=== PATIENT | female | born 1935 | race American Indian/Alaskan Native ===

== ENCOUNTER 2019-08-20 05:17 | Inpatient (IN) | payer MEDICARE ==
[2019-08-20] MEDS ORDERED: SODIUM CHLORIDE 0.9% 1000 ML IV SOLN IV ONE (05:54)
[2019-08-20 06:25] LABS: Basophils % (Auto) 0.2 % (0.0-1.8); Eosinophils % (Auto) 0.3 % (0.0-4.3); Hematocrit 36.5 % (30.3-42.9); Hemoglobin 12.2 gm/dl (10.1-14.3); Lymphocytes # (Auto) 1.3 K/mm3 (1.2-5.4); Lymphocytes % (Auto) 14.2 % (13.4-35.0); Mean Corpuscular HGB Conc 34 % (30-34); Mean Corpuscular Volume 93 fl (79-97); Monocytes # (Auto) 0.7 K/mm3 (0.0-0.8); Monocytes % (Auto) 7.4 % (0.0-7.3); Platelet Count 144 K/mm3 (140-440); Red Blood Count 3.94 M/mm3 (3.65-5.03); Red Cell Distribution Width 14.1 % (13.2-15.2)
--- NOTE | 2019-08-20 06:32 | XRay Report ---
CHEST 1 VIEW 08/20/2019 6:08 AM INDICATION / CLINICAL INFORMATION: Weakness. Hypotension. COMPARISON: 2 views of the chest from 01/30/2014. FINDINGS: SUPPORT DEVICES: Unremarkable appearing left ICD. HEART / MEDIASTINUM: No significant abnormality. LUNGS / PLEURA: Lung volumes are reduced with elevation of the right hemidiaphragm and right basilar atelectasis. The lungs are otherwise clear. No significant pleural effusion. No pneumothorax. ADDITIONAL FINDINGS: No significant additional findings. IMPRESSION: 1. No acute abnormality of the chest. 2. Right basilar atelectasis. Signer Name: Tre Meyer MD Signed: 08/20/2019 6:28 AM Workstation Name: [id number]
--- NOTE | 2019-08-20 06:38 | Emergency Department Report ---
HPI - General Chief Complaint: Weakness Time Seen by Provider: 08/20/19 06:18 - HPI HPI: Room 19 The patient is an 84-year-old female present with chief complaint of weakness. Family states for the past 3 to 4 days the patient exhibited weakness has been unable to get out of bed or perform her activities of daily living. Patient complains of intermittent chest pain associated with nausea and diaphoresis for the past 3 to 4 days. Patient states she has been unable to get out of bed secondary to feeling weak and chronic back pain. There is no preceding trauma. There is no history of fever. Family reports the patient has complained of a headache for the past 4 to 5 days ED Past Medical Hx - Past Medical History Hx Hypertension: Yes (hyperlipdemia) Hx CVA: Yes (december,) Hx Heart Attack/AMI: Yes Hx Congestive Heart Failure: Yes Hx Diabetes: Yes Hx Deep Vein Thrombosis: Yes Hx Arthritis: Yes Hx Headaches / Migraines: Yes Hx Kidney Stones: Yes Additional medical history: frequent sinus infections - Surgical History Hx Pacemaker: Yes Additional Surgical History: lithotripsy - Family History Family history: no significant - Social History Smoking Status: Never Smoker Substance Use Type: None - Medications Home Medications: Home Medications Medication Instructions Recorded Confirmed Last Taken Type ALPRAZolam [Xanax TAB] 0.5 mg PO BID 03/21/13 01/30/14 01/29/14 History Amlodipine Bes/Olmesartan Med 5 mg PO QDAY 03/21/13 01/30/14 01/29/14 History [Shekhar 10-20 mg] Glimepiride [Amaryl] 2 mg PO QAM 03/21/13 01/30/14 01/29/14 History Losartan [Cozaar] 50 mg PO QDAY 03/21/13 01/30/14 01/29/14 History Atorvastatin [Lipitor] 40 mg PO QHS 11/13/13 01/30/14 01/29/14 History Oxycodone HCl/Acetaminophen 1 each PO Q6HR PRN #20 tablet 11/29/13 01/30/14 01/30/14 Rx [Percocet 7.5/325 mg] Aspirin EC 325 mg PO QDAY #30 tablet 02/08/14 Unknown Rx Clopidogrel [Plavix] 75 mg PO QDAY #30 tablet 02/08/14 Unknown Rx Pantoprazole [Protonix TAB] 40 mg PO QDAY #30 tablet 02/08/14 Unknown Rx carvediloL [Coreg] 3.125 mg PO BID #60 tablet 02/08/14 Unknown Rx ED Review of Systems ROS: Stated complaint: WEAKNESS Other details as noted in HPI Constitutional: weakness Eyes: denies: eye pain ENT: denies: throat pain Respiratory: shortness of breath Cardiovascular: chest pain Endocrine: no symptoms reported Gastrointestinal: nausea. denies: vomiting Genitourinary: denies: dysuria Musculoskeletal: back pain Neurological: headache Physical Exam - Physical Exam Vital Signs: Vital Signs 08/20/19 05:50 Temperature 97.8 F Pulse Rate 70 Blood Pressure 89/46 Physical Exam: GEN: WD WN female lying on stretcher in NAD HEENT: NCAT, EOMI NECK: trachea midline PULM: CTA bilat. No resp distress noted CV: rrr no m/r/g ABD: Soft with no rebound or guarding SKIN: no diaphoresis NEURO: GCS 15 MUSCULOSKELETAL: No evidence of acute injury ED Course Vital Signs 08/20/19 05:50 Temperature 97.8 F Pulse Rate 70 Blood Pressure 89/46 - Consultations Consultation #1: 08/20/19 07:34 Nephrology paged 08/20/19 07:[address] Núñez. Recommend potassium repletion with 40 mEq p.o. and 20 mEq IV then repeat potassium level prior to administering more potassium ED Medical Decision Making - Lab Data Result diagrams: 08/20/19 06:11 08/20/19 06:11 Laboratory Tests 08/20/19 08/20/19 08/20/19 06:11 06:11 06:11 WBC 9.0 RBC 3.94 Hgb 12.2 Hct 36.5 MCV 93 MCH 31 MCHC 34 RDW 14.1 Plt Count 144 Lymph % (Auto) 14.2 Ross % (Auto) 7.4 H Eos % (Auto) 0.3 Baso % (Auto) 0.2 Lymph # 1.3 Ross # 0.7 Eos # 0.0 Baso # 0.0 Seg Neutrophils % 77.9 H Seg Neutrophils # 7.0 Sodium 138 Potassium 2.4 L* Chloride 97.1 L Carbon Dioxide 19 L Anion Gap 24 BUN 57 H Creatinine 5.9 H Estimated GFR 8 BUN/Creatinine Ratio 10 Glucose 143 H Lactic Acid 1.10 Calcium 8.7 Total Bilirubin 0.40 AST 557 H ALT 181 H Alkaline Phosphatase 71 Troponin T 0.224 H* Total Protein 6.0 L Albumin 3.4 L Albumin/Globulin Ratio 1.3 - EKG Data -: EKG Interpreted by Me EKG shows normal: sinus rhythm Rate: normal - EKG Data When compared to previous EKG there are: previous EKG unavailable Interpretation: other (No ischemic changes seen) - Radiology Data Radiology results: report reviewed (Chest x-ray, CT head, CT abdomen pelvis), image reviewed (Chest x-ray, CT head, CT abdomen pelvis) interpreted by me: Chest x-ray-right lower lobe atelectasis. No pneumothorax Findings [address] [address] XRay Report Signed Patient: SHARRI PEREZ MR#: [id number] : 1935 Acct:[id number] Age/Sex: 84 / F ADM Date: 08/20/19 Loc: ED Attending Dr: Ordering Physician: Marisol Mustafa MD Date of Service: 08/20/19 Procedure(s): XR chest 1V ap Accession Number(s): [id number] cc: Marisol Mustafa MD Fluoro Time In Minutes: CHEST 1 VIEW 08/20/2019 6:08 AM INDICATION / CLINICAL INFORMATION: Weakness. Hypotension. COMPARISON: 2 views of the chest from 01/30/2014. FINDINGS: SUPPORT DEVICES: Unremarkable appearing left ICD. HEART / MEDIASTINUM: No significant abnormality. LUNGS / PLEURA: Lung volumes are reduced with elevation of the right hemidiaphragm and right basilar atelectasis. The lungs are otherwise clear. No significant pleural effusion. No pneumothorax. ADDITIONAL FINDINGS: No significant additional findings. IMPRESSION: 1. No acute abnormality of the chest. 2. Right basilar atelectasis. Signer Name: Tre Meyer MD Signed: 08/20/2019 6:28 AM Workstation Name: [id number] Transcribed By: STONEY Dictated By: Tre Meyer MD Electronically Authenticated By: Tre Meyer MD Signed Date/Time: 08/20/19627 DD/ 6 TD/TT: Findings [address] [address] Cat Scan Report Signed Patient: SHARRI PEREZ MR#: [id number] : 1935 Acct:[id number] Age/Sex: 84 / F ADM Date: 08/20/19 Loc: ED Attending Dr: Ordering Physician: ADIS ROWLAND MD Date of Service: 08/20/19 Procedure(s): CT abdomen pelvis wo con Accession Number(s): [id number] cc: ADIS ROWLAND MD CT ABDOMEN AND PELVIS WITHOUT CONTRAST INDICATION: Acute renal failure. COMPARISON: No relevant prior imaging study available. TECHNIQUE: Axial, coronal and sagittal CT imaging of the abdomen and pelvis was performed without contrast. Lack of intravenous contrast limits evaluation of the vascular and solid organs. All CT scans at this location are performed using CT dose reduction for ALARA by means of automated exposure control. FINDINGS: LOWER CHEST: There is bibasilar atelectasis. A left pacing device is in good position. Heart size is normal with dense coronary atherosclerosis and no significant p ericardial effusion. LIVER: No significant abnormality. BILIARY: Sludge is seen within the gallbladder without evidence of acute cholecystitis. No biliary ductal dilatation. PANCREAS: No significant abnormality. SPLEEN: No significant abnormality. ADRENALS: No significant abnormality. KIDNEYS AND URETERS: There are probable bilateral renal cysts measuring up to 1.5 cm on the left and 1.1 cm on the right. No stones or hydroureteronephrosis. GI TRACT: No significant abnormality of the stomach or small bowel. The colon contains a large amount of stool with secondary distention of the rectum. There is mild infiltration of the perirectal fat. The appendix is not seen. PERITONEUM: No free fluid. No free air. No fluid collection. LYMPH NODES: No significant adenopathy. VASCULATURE: The aorta is normal in caliber with moderate generalized atherosclerosis. URINARY BLADDER: No significant abnormality. REPRODUCTIVE ORGANS: Prior hysterectomy. No significant abnormality. ADDITIONAL FINDINGS: None. SKELETAL SYSTEM: No acute abnormality. Degenerative changes are seen throughout the spine and pelvis. IMPRESSION: 1. No acute abnormality of the abdomen or pelvis. 2. Probable bilateral renal cysts. A nonemergent renal ultrasound would be helpful for further evaluation. 3. Additional findings as above. Signer Name: Tre Meyer MD Signed: 08/20/2019 7:13 AM Workstation Name: [id number] Transcribed By: STONEY Dictated By: Tre Meyer MD Electronically Authenticated By: Tre Meyer MD Signed Date/Time: 08/20/19712 DD/ 7 TD/TT: Findings [facility] [address] [place] [address] Cat Scan Report Signed Patient: SHARRI PEREZ MR#: [id number] : 1935 Acct:[id number] Age/Sex: 84 / F ADM Date: 08/20/19 Loc: ED Attending Dr: Ordering Physician: ADIS ROWLAND MD Date of Service: 08/20/19 Procedure(s): CT head/brain wo con Accession Number(s): [id number] cc: ADIS ROWLAND MD CT HEAD WITHOUT CONTRAST INDICATION : Patient complains of headache and weakness.. TECHNIQUE: Axial, coronal and sagittal CT imaging was performed from the skull apex through the skull base without contrast. All CT scans at this location are performed using CT dose reduction for ALARA by means of automated exposure control. COMPARISON: CT head without contrast from 11/29/2013. FINDINGS: PARENCHYMA: No mass, midline shift, hemorrhage, extraaxial collection or acute territorial infarction. Age-appropriate atrophy is seen with probable chronic microvascular ischemic changes along the periventricular white matter. VENTRICLES: Enlarged secondary to atrophy. No acute abnormality. SOFT TISSUES: No significant abnormality of the included soft tissues/orbits. BONES: No acute osseous abnormality. SINUSES: No significant abnormality. ADDITIONAL FINDINGS: There is moderate anterior circulation atherosclerosis. IMPRESSION: 1. No acute intracranial abnormality. 2. Additional chronic changes as above. Signer Name: Tre eMyer MD Signed: 08/20/2019 7:08 AM Workstation Name: [id number] Transc ribed By: STONEY Dictated By: Tre Meyer MD Electronically Authenticated By: Tre Meyer MD Signed Date/Time: 08/20/19707 DD/ 5 TD/TT: - Differential Diagnosis Sepsis, dehydration, symptomatic anemia, ACS Critical care attestation.: If time is entered above; I have spent that time in minutes in the direct care of this critically ill patient, excluding procedure time. ED Disposition Clinical Impression: Acute renal failure, Weakness, Hypokalemia Disposition: OP ADMIT IP TO THIS HOSP Is pt being admited?: Yes Does the pt Need Aspirin: No Condition: Stable Referrals: PRIMARY CARE, [Primary Care Provider] - 3-5 Days Time of Disposition: 07:51 (Hospitalist paged (Dr Fajardo))
[2019-08-20 06:43] LABS: Albumin 3.4 g/dL (3.9-5); Calcium 8.7 mg/dL (8.4-10.2)
--- NOTE | 2019-08-20 07:12 | Cat Scan Report ---
CT HEAD WITHOUT CONTRAST INDICATION : Patient complains of headache and weakness.. TECHNIQUE: Axial, coronal and sagittal CT imaging was performed from the skull apex through the skul l base without contrast. All CT scans at this location are performed using CT dose reduction for ALA RA by means of automated exposure control. COMPARISON: CT head without contrast from 11/29/2013. FINDINGS: PARENCHYMA: No mass, midline shift, hemorrhage, extraaxial collection or acute territorial infarctio n. Age-appropriate atrophy is seen with probable chronic microvascular ischemic changes along the pe riventricular white matter. VENTRICLES: Enlarged secondary to atrophy. No acute abnormality. SOFT TISSUES: No significant abnormality of the included soft tissues/orbits. BONES: No acute osseous abnormality. SINUSES: No significant abnormality. ADDITIONAL FINDINGS: There is moderate anterior circulation atherosclerosis. IMPRESSION: 1. No acute intracranial abnormality. 2. Additional chronic changes as above. Signer Name: Tre Meyer MD Signed: 08/20/2019 7:08 AM Workstation Name: [id number]
--- NOTE | 2019-08-20 07:18 | Cat Scan Report ---
CT ABDOMEN AND PELVIS WITHOUT CONTRAST INDICATION: Acute renal failure. COMPARISON: No relevant prior imaging study available. TECHNIQUE: Axial, coronal and sagittal CT imaging of the abdomen and pelvis was performed without co ntrast. Lack of intravenous contrast limits evaluation of the vascular and solid organs. All CT sca ns at this location are performed using CT dose reduction for ALARA by means of automated exposure co ntrol. FINDINGS: LOWER CHEST: There is bibasilar atelectasis. A left pacing device is in good position. Heart size is normal with dense coronary atherosclerosis and no significant pericardial effusion. LIVER: No significant abnormality. BILIARY: Sludge is seen within the gallbladder without evidence of acute cholecystitis. No biliary du ctal dilatation. PANCREAS: No significant abnormality. SPLEEN: No significant abnormality. ADRENALS: No significant abnormality. KIDNEYS AND URETERS: There are probable bilateral renal cysts measuring up to 1.5 cm on the left and 1.1 cm on the right. No stones or hydroureteronephrosis. GI TRACT: No significant abnormality of the stomach or small bowel. The colon contains a large amount of stool with secondary distention of the rectum. There is mild infiltration of the perirectal fat. The appendix is not seen. PERITONEUM: No free fluid. No free air. No fluid collection. LYMPH NODES: No significant adenopathy. VASCULATURE: The aorta is normal in caliber with moderate generalized atherosclerosis. URINARY BLADDER: No significant abnormality. REPRODUCTIVE ORGANS: Prior hysterectomy. No significant abnormality. ADDITIONAL FINDINGS: None. SKELETAL SYSTEM: No acute abnormality. Degenerative changes are seen throughout the spine and pelvis. IMPRESSION: 1. No acute abnormality of the abdomen or pelvis. 2. Probable bilateral renal cysts. A nonemergent renal ultrasound would be helpful for further evalua tion. 3. Additional findings as above. Signer Name: Tre Meyer MD Signed: 08/20/2019 7:13 AM Workstation Name: [id number]
[2019-08-20] MEDS: CEFEPIME/NS 2 GM/100 ML 2 GM/100 ML BAG IV SCH ×2 (07:20→19:37)
[2019-08-20] MEDS ORDERED: POTASSIUM CHLORIDE ER 20 MEQ TAB PO ONE (07:44)
[2019-08-20 07:48] LABS: Amorphous Crystals,Urine Few; Bacteria,Urine 1+ /HPF (Negative); Bilirubin,Urine NEG (Negative); Blood,Urine LG (Negative); Color,Urine Red (Yellow); Urobilinogen,Urine < 2.0 mg/dL (<2.0)
[2019-08-20 08:06] LABS: Chol/HDL Ratio 3.56 %
[2019-08-20] MEDS: POTASSIUM CHLORIDE 10 MEQ 10 MEQ/100 ML BAG IV SCH ×2 (08:06→09:06)
--- NOTE | 2019-08-20 08:08 | History and Physical Report ---
History of Present Illness Date of examination: 08/20/19 Date of admission: 08/20/19 Chief complaint: Generalized weakness, shortness of breath and cough, intermittent chest pain History of present illness: 84-year-old -[place] female patient with significant history of hypertension ,diabetes mellitus, coronary artery disease status post PCI ,CVA and seizure disorder Presented to the emergency room with complaints of generalized weakness, unable to get up and do her regular chores, worsening appetite and some shortness of breath and productive cough. The symptoms have been going on for the last 1 to 2 weeks but worse the last to 3 days. Patient denies headache dizziness, no fever or chills. At the time of my evaluation patient denied chest pain . However first set of cardiac enzymes are elevated Initial work-up in the ED is consistent with severe hypokalemia, acute kidney injury with creatinine of 5.9 Non-ST elevation ME, transaminitis Past History Past Medical History: CAD (Status post PCI in 2013), diabetes, hypertension, hyperlipidemia, seizures Past Surgical History: Other (ICD placement) Social history: lives with family. denies: smoking, alcohol abuse, IV drug use Family history: hypertension Medications and Allergies Allergies Allergy/AdvReac Type Severity Reaction Status Date / Time No Known Allergies Allergy Verified 11/29/13 10:39 Home Medications Medication Instructions Recorded Confirmed Last Taken Type ALPRAZolam [Xanax TAB] 0.5 mg PO BID 03/21/13 08/20/19 01/29/14 History Amlodipine Bes/Olmesartan Med 2.5 mg PO QDAY 03/21/13 08/20/19 1 Day Ago History [Shekhar 10-20 mg] ~08/19/19 Glimepiride [Amaryl] 2 mg PO QAM 03/21/13 08/20/19 1 Day Ago History ~08/19/19 2 mg Losartan [Cozaar] 25 mg PO QDAY 03/21/13 08/20/19 1 Day Ago History ~08/19/19 25 mg Atorvastatin [Lipitor] 40 mg PO QHS 11/13/13 08/20/19 01/29/14 History Oxycodone HCl/Acetaminophen 1 each PO Q6HR PRN #20 tablet 11/29/13 08/20/19 01/30/14 Rx [Percocet 7.5/325 mg] Aspirin EC 325 mg PO QDAY #30 tablet 02/08/14 08/20/19 Unknown Rx Clopidogrel [Plavix] 75 mg PO QDAY #30 tablet 02/08/14 08/20/19 Unknown Rx Pantoprazole [Protonix TAB] 40 mg PO QDAY #30 tablet 02/08/14 08/20/19 1 Day Ago Rx ~08/19/19 40 mg carvediloL [Coreg] 3.125 mg PO BID #60 tablet 02/08/14 08/20/19 Unknown Rx levETIRAcetam [Keppra TAB] 1,500 mg PO BID 08/20/19 08/20/19 Unknown History Active Meds: Active Medications Cefepime HCl (Cefepime/Ns 2 Gm/100 Ml) 2 gm in 100 mls @ 200 mls/hr IV Q12H SHARON; Protocol Last Admin: 08/20/19 07:20 Dose: 200 mls/hr Documented by: Potassium Chloride (Kcl 10meq/100ml) 10 meq in 100 mls @ 100 mls/hr IV Q1H SHARON Stop: 08/20/19 09:59 Last Admin: 08/20/19 08:06 Dose: 100 mls/hr Documented by: Review of Systems Constitutional: no weight loss, no weight gain Ears, nose, mouth and throat: no nasal congestion, no nasal discharge Cardiovascular: chest pain, shortness of breath, no orthopnea, no palpitations Respiratory: no cough, no hemoptysis Gastrointestinal: nausea, no abdominal pain, no vomiting Genitourinary Female: no pelvic pain, no dysuria Musculoskeletal: no myalgias, no arthritis Integumentary: no rash, no lesions Neurological: seizures, no syncope Psychiatric: no anxiety, no depression Endocrine: no cold intolerance, no heat intolerance Hematologic/Lymphatic: no easy bruising, no easy bleeding Allergic/Immunologic: no urticaria, no allergic rhinitis Exam - Constitutional Vitals: Temp Pulse Resp BP Pulse Ox 97.8 F 71 13 120/90 98 08/20/19 05:50 08/20/19 07:30 08/20/19 07:30 08/20/19 07:30 08/20/19 07:14 General appearance: Present: mild distress, well-nourished - EENT Eyes: Present: PERRL, EOM intact - Neck Neck: Present: supple, normal ROM - Respiratory Respiratory effort: normal Respiratory: bilateral: diminished, rhonchi, negative: rales, wheezing - Cardiovascular Rhythm: regular Heart Sounds: Present: S1 & S2 - Extremities Extremities: no ischemia, No edema - Abdominal General gastrointestinal: Present: soft, non-tender, non-distended, normal bowel sounds - Integumentary Integumentary: Present: clear, warm - Musculoskeletal Musculoskeletal: generalized weakness - Psychiatric Psychiatric: appropriate mood/affect, cooperative, other (Confused at times) - Neurologic Neurologic: moves all extremities Results - Labs CBC & Chem 7: 08/20/19 06:11 08/20/19 06:11 Labs: Abnormal lab results 08/20/19 08/20/19 08/20/19 Range/Units 06:11 06:11 07:38 [place] % (Auto) 7.4 H (0.0-7.3) % Seg Neutrophils % 77.9 H (40.0-70.0) % Potassium 2.4 L* (3.6-5.0) mmol/L Chloride 97.1 L (98-107) mmol/L Carbon Dioxide 19 L (22-30) mmol/L BUN 57 H (7-17) mg/dL Creatinine 5.9 H (0.7-1.2) mg/dL Glucose 143 H (65-100) mg/dL AST 557 H (5-40) units/L ALT 181 H (7-56) units/L Troponin T 0.224 H* (0.00-0.029) ng/mL Total Protein 6.0 L (6.3-8.2) g/dL Albumin 3.4 L (3.9-5) g/dL Urine WBC (Auto) 25.0 H (0.0-6.0) /HPF Assessment and Plan --Non-ST elevation ME; In the setting of acute renal failure could be NSTEMI 2 Elevated cardiac enzymes, patient denies chest pain However patient has risk factors, coronary artery disease status post PCI in 2013 Serial cardiac enzymes, heparin drip, antiplatelets, beta-blockers echocardiogram, cardiology consult For possible heart cath versus stress test if needed --Coronary artery disease status post PCI --ICD in place; monitor, cardiology evaluation if needed --Severe hypokalemia; Replenish per protocol and monitor levels Check magnesium --Acute kidney injury; vasomotor nephropathy Gentle hydration closely monitor renal function avoid nephrotoxins Nephrology consulted --History of seizure disorders; seizure precautions No driving, antiepileptic medications Consider neurology consult --Transaminitis; unknown etiology Check hepatitis panel, abdominal ultrasound if needed CT abdomen, no acute abnormalities, biliary sludge, no cholecystitis Check abdominal ultrasound --Type 2 diabetes mellitus; Accu-Chek sliding scale coverage ADA diet, insulin as needed --Hypertension; moderate control Continue current antihypertensives and PRN medications --DVT prophylaxis; heparin renal dose --Full CODE STATUS Monitor closely and adjust management as needed Plan of care reviewed with the patient, And family members daughter and the niece At the bedside They had many questions, answered all of them Disposition; follow cardiology, nephrology, GI Evaluation and recommendations I spent total 50 minutes coordinating this admission
[2019-08-20] MEDS ORDERED: hydrALAZINE 20 MG/1 ML INJ IV PRN (09:00)
[2019-08-20] MEDS ORDERED: POTASSIUM CHLORIDE 10 MEQ 10 MEQ/100 ML BAG IV ONE (09:02)
[2019-08-20] MEDS ORDERED: ALPRAZolam 0.25 MG TAB PO SCH (10:00)
--- NOTE | 2019-08-20 11:51 | Consultation ---
History of Present Illness - Reason for Consult acute renal failure - History of Present Illness Pleasant 84 y/o AAF with PMHx of HTN, DM, CAD, CVA, presented to the ED secondary to 1-2 weeks of progressively worsening appetite and decreased hydration along with symptoms of weakness, malaise and productive cough, who was brought in by her family for further evaluation. Denies any fevers, chills, nausea, vomiting, diarrhea. Initial labs indicated acute renal failure, for which nephrology is consulted at this time. Per patient's daughter at bedside, she had a recent visit with her PCP and was told that all labs were normal. Past History Past Medical History: CAD, diabetes, hypertension, hyperlipidemia Past Surgical History: Other (Defibrillator placement) Social history: lives with family Family history: hypertension Medications and Allergies Allergies Allergy/AdvReac Type Severity Reaction Status Date / Time No Known Allergies Allergy Verified 11/29/13 10:39 Home Medications Medication Instructions Recorded Confirmed Last Taken Type ALPRAZolam [Xanax TAB] 0.5 mg PO BID 03/21/13 01/30/14 01/29/14 History Amlodipine Bes/Olmesartan Med 5 mg PO QDAY 03/21/13 01/30/14 01/29/14 History [[place] 10-20 mg] Glimepiride [Amaryl] 2 mg PO QAM 03/21/13 01/30/14 01/29/14 History Losartan [Cozaar] 50 mg PO QDAY 03/21/13 01/30/14 01/29/14 History Atorvastatin [Lipitor] 40 mg PO QHS 11/13/13 01/30/14 01/29/14 History Oxycodone HCl/Acetaminophen 1 each PO Q6HR PRN #20 tablet 11/29/13 01/30/14 01/30/14 Rx [Percocet 7.5/325 mg] Aspirin EC 325 mg PO QDAY #30 tablet 02/08/14 Unknown Rx Clopidogrel [Plavix] 75 mg PO QDAY #30 tablet 02/08/14 Unknown Rx Pantoprazole [Protonix TAB] 40 mg PO QDAY #30 tablet 02/08/14 Unknown Rx carvediloL [Coreg] 3.125 mg PO BID #60 tablet 02/08/14 Unknown Rx Active Meds: Active Medications Alprazolam (Xanax) 0.5 mg PO BID [facility] Aspirin (Ecotrin) 325 mg PO QDAY [facility] Atorvastatin Calcium (Lipitor) 40 mg PO QHS [facility] Clopidogrel Bisulfate (Plavix) 75 mg PO QDAY [facility] Glimepiride (Amaryl) 2 mg PO QDDIAB [facility] Hydralazine HCl (Apresoline) 10 mg IV Q4HR PRN PRN Reason: Hypertension Cefepime HCl (Cefepime/Ns 2 Gm/100 Ml) 2 gm in 100 mls @ 200 mls/hr IV Q12H [facility]; Protocol Last Admin: 08/20/19 07:20 Dose: 200 mls/hr Documented by: Pantoprazole Sodium (Protonix) 40 mg PO QDAY [facility] Review of Systems All systems: negative Constitutional: fatigue, weakness Exam - Vital Signs Vital signs: Vital Signs Temp Pulse BP 97.8 F 70 89/46 08/20/19 05:50 08/20/19 05:50 08/20/19 05:50 - General Appearance General appearance: chronically ill, fatigue, frail EENT: ATNC, PERRL Neck: Present: neck supple, trachea midline Respiratory: Clear to Ascultation, Normal Exam Heart: regular, S1S2 Gastrointestinal: Present: normal Integumentary: warm and dry Neurologic: confused Musculoskeletal: Present: deferred Psychiatric: cooperative Results - Lab Results 08/20/19 06:11 08/20/19 06:11 Most recent lab results Calcium 8.7 mg/dL (8.4-10.2) 08/20/19 06:11 Magnesium 2.30 mg/dL (1.7-2.3) 08/20/19 Unknown - Image Kidney/bladder ultrasound: pending Assessment and Plan - Patient Problems (1) Acute renal failure Current Visit: Yes Status: Acute Plan to address problem: Likely pre-renal in nature. Would recommend gentle IVF hydration at 75 cc/hr with NS. Avoid nephrotoxins, maintain MAP >mmHg. Agree with hold ARB at this time given renal failure. Renal US ordered along with urine electrolytes. UA reviewed, no acute signs of infection noted. Will be monitoring renal function daily. (2) Hypokalemia Current Visit: Yes Status: Acute Plan to address problem: Replete per protocol. (3) Hypertensive chronic kidney disease with stage 1 through stage 4 chronic kidney disease, or unspecified chronic kidney disease Current Visit: Yes Status: Acute Plan to address problem: Agree with holding her blood pressure medications at this time given her lower b lood pressures. Will monitor off antihypertensives at this time. (4) Type 2 diabetes mellitus with diabetic chronic kidney disease Current Visit: Yes Status: Chronic Plan to address problem: DM management per primary attending.
[2019-08-20] MEDS: PANTOPRAZOLE 40 MG TAB PO SCH (11:53)
[2019-08-20] MEDS: ALPRAZolam 0.5 MG TAB PO SCH ×2 (11:53→20:59)
[2019-08-20] MEDS: ASPIRIN EC 325 MG TAB PO SCH (11:53)
[2019-08-20] MEDS: CLOPIDOGREL 75 MG TAB PO SCH (11:54)
[2019-08-20] MEDS ORDERED: NACL 0.9%/KCL 20 MEQ 20 MEQ/1,000 ML BAG IV SCH (12:00)
[2019-08-20] MEDS: GLIMEPIRIDE 2 MG TAB PO SCH (12:01)
--- NOTE | 2019-08-20 15:54 | Ultrasound Report ---
ULTRASOUND RENAL INDICATION / CLINICAL INFORMATION: JULIANO. COMPARISON: CT dated 08/20/19 FINDINGS: RIGHT KIDNEY: Length = 10.2 cm. - Echogenicity: Moderately echogenic - Cortical Thickness: Normal. - Hydronephrosis: None. - Cyst or mass: 1.6 cm cyst in the upper pole. - Stones: None seen. LEFT KIDNEY: Length = 10.5 cm. - Echogenicity: Moderately echogenic - Cortical Thickness: Normal. - Hydronephrosis: None. - Cyst or mass: 1.5 cm cyst in the upper pole. - Stones: None seen. URINARY BLADDER: No significant abnormality. FREE FLUID: None. ADDITIONAL FINDINGS: None. IMPRESSION: 1. Moderately echogenic kidneys characteristic of medical renal disease. 2. No hydronephrosis. Signer Name: Taylor Loza MD Signed: 08/20/2019 3:50 PM Workstation Name: [id number]
[2019-08-20] MEDS ORDERED: NITROGLYCERIN 0.4 MG TAB SUBL SL PRN (19:00)
[2019-08-20] MEDS ORDERED: MORPHINE 2 MG/1 ML INJ IV PRN (19:01)
[2019-08-20] MEDS: HEPARIN/ 0.45% NACL DRIP 25,000 UNIT/500 ML BAG IV SCH (20:39)
[2019-08-20] MEDS: levETIRAcetam 500 MG TAB PO SCH (20:59)
[2019-08-20] MEDS: carvediloL 3.125 MG TAB PO SCH (21:09)
[2019-08-20] MEDS: INSULIN LISPRO 100 UNIT/ML SUB-Q SCH (21:48)
[2019-08-20] MEDS ORDERED: levETIRAcetam 500 MG TAB PO SCH (22:00)
[2019-08-20] MEDS: FAMOTIDINE 20 MG/2 ML INJ IV SCH (23:02)
[2019-08-20 23:45] LABS: Hematocrit 34.7 % (30.3-42.9); Hemoglobin 11.7 gm/dl (10.1-14.3)
[2019-08-20 23:56] LABS: INR 1.3 (0.87-1.13)
[2019-08-20 23:58] LABS: Partial Thromboplastin Time 59.6 Sec. (24.2-36.6)
[2019-08-21 00:08] LABS: Creatine Kinase MB 79.6 ng/mL (0.0-4.0)
[2019-08-21 00:13] LABS: Hepatitis B Surface Antigen Non-Reactive (Negative); Hepatitis C Virus Antibody Non-Reactive (NonReactive)
[2019-08-21 03:39] LABS: Albumin 3.2 g/dL (3.9-5); Calcium 7.9 mg/dL (8.4-10.2)
[2019-08-21] MEDS: CEFEPIME/NS 2 GM/100 ML 2 GM/100 ML BAG IV SCH (05:15)
--- NOTE | 2019-08-21 07:49 | Progress Note ---
Assessment and Plan Assessment and plan: --Severe hypokalemia; Replenish per protocol and monitor levels. Check magnesium. KCl 40 mEq IV, 20 mEq and IV fluids, monitor levels --Non-ST elevation CA; In the setting of acute renal failure could be NSTEMI 2 However patient has risk factors, coronary artery disease status post PCI in 2013 Serial cardiac enzymes, heparin drip, antiplatelets, beta-blockers echocardiogram, cardiology consult For possible heart cath versus stress test if needed --Coronary artery disease status post PCI --ICD in place; monitor, cardiology evaluation if needed --Acute kidney injury; vasomotor nephropathy Worsening renal function, nephrology following --Metabolic acidosis:acute kidney injury,mgt per neurology --Rhabdomyolysis; rigorous IV hydration Monitor renal function, input output Hold statin, nephrology following --Dyslipidemia; hold statin in view of rhabdo/transaminitis --Transaminitis; unknown etiology Hepatitis panel negative, follow abdominal ultrasound CT abdomen, no acute abnormalities, biliary sludge, no cholecystitis GI consulted --Type 2 diabetes mellitus; Accu-Chek sliding scale coverage ADA diet, insulin as needed --Hypertension; moderate control Continue current antihypertensives and PRN medications --DVT prophylaxis; heparin renal dose --Full CODE STATUS Patient is critically ill with multiorgan involvement Will Monitor closely and adjust management as needed Disposition; follow consultants evaluation and recommendations Follow clinically, discharge when medically stable Critical care time; 35 minutes History Interval history: Patient seen and examined at the bedside this morning Patient's chart, overnight events, medication list reviewed Patient is minimally communicative, denies chest pain Confused at times Vital signs noted Hospitalist Physical - Constitutional Vitals: Temp Pulse Resp BP Pulse Ox 98.0 F 70 18 106/43 99 08/21/19 03:41 08/21/19 03:41 08/21/19 03:41 08/21/19 03:41 08/21/19 03:41 General appearance: Present: mild distress, well-nourished - EENT Eyes: Present: PERRL, EOM intact - Neck Neck: Present: supple, normal ROM - Respiratory Respiratory effort: normal Respiratory: bilateral: diminished, rhonchi, negative: rales, wheezing - Cardiovascular Rhythm: regular Heart Sounds: Present: S1 & S2 - Extremities Extremities: no ischemia, No edema - Abdominal General gastrointestinal: soft, non-tender, non-distended, normal bowel sounds - Integumentary Integumentary: Present: clear, warm - Psychiatric Psychiatric: appropriate mood/affect, cooperative - Neurologic Neurologic: moves all extremities Results - Labs CBC & Chem 7: 08/20/19 23:09 08/21/19 02:27 Labs: Laboratory Last Values WBC 9.0 K/mm3 (4.5-11.0) 08/20/19 06:11 RBC 3.94 M/mm3 (3.65-5.03) 08/20/19 06:11 Hgb 11.7 gm/dl (10.1-14.3) 08/20/19 23:09 Hct 34.7 % (30.3-42.9) 08/20/19 23:09 MCV 93 fl (79-97) 08/20/19 06:11 MCH 31 pg (28-32) 08/20/19 06:11 MCHC 34 % (30-34) 08/20/19 06:11 RDW 14.1 % (13.2-15.2) 08/20/19 06:11 Plt Count 131 K/mm3 (140-440) L 08/20/19 23:09 Lymph % (Auto) 14.2 % (13.4-35.0) 08/20/19 06:11 [place] % (Auto) 7.4 % (0.0-7.3) H 08/20/19 06:11 Eos % (Auto) 0.3 % (0.0-4.3) 08/20/19 06:11 Baso % (Auto) 0.2 % (0.0-1.8) 08/20/19 06:11 Lymph # 1.3 K/mm3 (1.2-5.4) 08/20/19 06:11 [place] # 0.7 K/mm3 (0.0-0.8) 08/20/19 06:11 Eos # 0.0 K/mm3 (0.0-0.4) 08/20/19 06:11 Baso # 0.0 K/mm3 (0.0-0.1) 08/20/19 06:11 Seg Neutrophils % 77.9 % (40.0-70.0) H 08/20/19 06:11 Seg Neutrophils # 7.0 K/mm3 (1.8-7.7) 08/20/19 06:11 PT 16.4 Sec. (12.2-14.9) H 08/20/19 23:09 INR 1.30 (0.87-1.13) H 08/20/19 23:09 APTT 59.6 Sec. (24.2-36.6) H 08/20/19 23:09 Heparin Anti-Xa Level 0.17 U.I./ml (0.3-0.7) L 08/21/19 02:27 Sodium 141 mmol/L (137-145) 08/21/19 02:27 Potassium 2.8 mmol/L (3.6-5.0) L* 08/21/19 02:27 Chloride 102.7 mmol/L (98-107) 08/21/19 02:27 Carbon Dioxide 18 mmol/L (22-30) L 08/21/19 02:27 Anion Gap 23 mmol/L 08/21/19 02:27 BUN 60 mg/dL (7-17) H 08/21/19 02:27 Creatinine 6.3 mg/dL (0.7-1.2) H 08/21/19 02:27 Estimated GFR 8 ml/min 08/21/19 02:27 BUN/Creatinine Ratio 10 % 08/21/19 02:27 Glucose 184 mg/dL (65-100) H 08/21/19 02:27 POC Glucose 234 (70-105) H 08/20/19 21:28 Lactic Acid 1.70 mmol/L (0.7-2.0) 08/20/19 23:09 Calcium 7.9 mg/dL (8.4-10.2) L 08/21/19 02:27 Magnesium 2.30 mg/dL (1.7-2.3) 08/20/19 Unknown Total Bilirubin 0.30 mg/dL (0.1-1.2) 08/21/19 02:27 AST 550 units/L (5-40) H 08/21/19 02:27 ALT 185 units/L (7-56) H 08/21/19 02:27 Alkaline Phosphatase 68 units/L (35-129) 08/21/19 02:27 Total Creatine Kinase 30051 units/L (30-135) H 08/21/19 05:35 CK-MB (CK-2) 73.0 ng/mL (0.0-4.0) H 08/21/19 05:35 CK-MB (CK-2) Rel Index 0.3 (0-4) 08/21/19 05:35 Troponin T 0.196 ng/mL (0.00-0.029) H* 08/21/19 05:35 Total Protein 5.4 g/dL (6.3-8.2) L 08/21/19 02:27 Albumin 3.2 g/dL (3.9-5) L 08/21/19 02:27 Albumin/Globulin Ratio 1.5 % 08/21/19 02:27 Triglycerides 125 mg/dL (2-149) 08/20/19 06:11 Cholesterol 89 mg/dL (50-199) 08/20/19 06:11 LDL Cholesterol Direct 45 mg/dL (50-130) L 08/20/19 06:11 HDL Cholesterol 25 mg/dL (40-59) L 08/20/19 06:11 Cholesterol/HDL Ratio 3.56 % 08/20/19 06:11 Urine Color Red (Yellow) 08/20/19 07:38 Urine Turbidity Cloudy (Clear) 08/20/19 07:38 Urine pH 5.0 (5.0-7.0) 08/20/19 07:38 Ur Specific [place] 1.013 (1.003-1.030) 08/20/19 07:38 Urine Protein 100 mg/dl mg/dL (Negative) 08/20/19 07:38 Urine Glucose (UA) Neg mg/dL (Negative) 08/20/19 07:38 Urine Ketones Neg mg/dL (Negative) 08/20/19 07:38 Urine Blood Lg (Negative) 08/20/19 07:38 Urine Nitrite Neg (Negative) 08/20/19 07:38 Urine Bilirubin Neg (Negative) 08/20/19 07:38 Urine Urobilinogen < 2.0 mg/dL (<2.0) 08/20/19 07:38 Ur Leukocyte Esterase Sm (Negative) 08/20/19 07:38 Urine WBC (Auto) 25.0 /HPF (0.0-6.0) H 08/20/19 07:38 Urine RBC (Auto) 4.0 /HPF (0.0-6.0) 08/20/19 07:38 U Epithel Cells (Auto) 3.0 /HPF (0-13.0) 08/20/19 07:38 Urine Bacteria (Auto) 1+ /HPF (Negative) 08/20/19 07:38 Amorphous Crystals Few 08/20/19 07:38 Hepatitis A IgM Ab Non-reactive (NonReactive) 08/20/19 23:09 Hep Bs Antigen Non-reactive (Negative) 08/20/19 23:09 Hep B Core IgM Ab Non-reactive (NonReactive) 08/20/19 23:09 Hepatitis C Antibody Non-reactive (NonReactive) 08/20/19 23:09 Active Medications - Current Medications Current Medications: Generic Name Dose Route Start Last Admin Trade Name Freq PRN Reason Stop Dose Admin Alprazolam 0.5 mg 08/20/19 10:00 08/20/19 20:59 Xanax PO 0.5 mg BID SHARON Administration Aspirin 325 mg 08/20/19 10:00 08/20/19 11:53 Ecotrin PO 325 mg QDAY [facility] Administration Carvedilol 3.125 mg 08/20/19 22:00 08/20/19 21:09 Coreg PO Not Given BID SH[facility]ON Clopidogrel Bisulfate 75 mg 08/20/19 10:00 08/20/19 11:54 Plavix PO 75 mg QDAY [facility] Administration Famotidine 20 mg 08/20/19 22:00 08/20/19 23:02 Pepcid IV 20 mg DAILY [facility]ON Administration Glimepiride 2 mg 08/20/19 10:00 08/20/19 12:01 Amaryl PO 2 mg QDDIAB [facility] Administration Hydralazine HCl 10 mg 08/20/19 09:00 Apresoline IV Q4HR PRN Hypertension Potassium Chloride/Sodium Chloride 20 meq in 1,000 mls @ 125 mls/hr 08/20/19 12:00 08/20/19 14:17 Ns/Kcl 20meq IV 75 mls/hr DIRECT [facility] Administration Heparin Sodium/Sodium Chloride 25,000 unit in 500 mls @ 20 mls/hr 08/20/19 19:00 08/21/19 04:29 Heparin/ 0.45% Nacl-25,000 Unit/500 Ml IV 1,050 units/hr TITRATE [facility]ON 21 mls/hr Titration Protocol 1,000 UNITS/HR Cefepime HCl 2 gm in 100 mls @ 200 mls/hr 08/22/19 08:00 Cefepime/Ns 2 Gm/100 Ml IV Q24H [facility] Protocol Potassium Chloride 10 meq in 100 mls @ 100 mls/hr 08/21/19 08:00 Kcl 10meq/100ml IV 08/21/19 11:59 Q1H [facility] Insulin Human Lispro 0 unit 08/20/19 22:00 08/20/19 21:48 Humalog SUB-Q 3 unit ACHS [facility] Administration Protocol Levetiracetam 1,500 mg 08/20/19 22:00 08/20/19 20:59 Keppra PO 1,500 mg BID [facility]ON Administration Morphine Sulfate 2 mg 08/20/19 19:01 Morphine IV Q4H PRN Pain, Moderate (4-6) Nitroglycerin 0.4 mg 08/20/19 19:00 Nitrostat SL .Q5MIN PRN Chest Pain Pantoprazole Sodium 40 mg 08/20/19 10:00 08/20/19 11:53 Protonix PO 40 mg QDAY [facility] Administration
[2019-08-21] MEDS: ALPRAZolam 0.5 MG TAB PO SCH ×2 (08:21→21:22)
[2019-08-21] MEDS: INSULIN LISPRO 100 UNIT/ML SUB-Q SCH ×2 (08:22→22:11)
--- NOTE | 2019-08-21 09:05 | Ultrasound Report ---
ULTRASOUND ABDOMEN, COMPLETE INDICATION: Transaminitis. COMPARISON: CT abdomen pelvis without contrast 08/20/2019. FINDINGS: Pancreas: No significant abnormality. Abdominal Aorta: No significant abnormality. IVC: No significant abnormality. Liver: The liver measures 15.1 cm in length. No significant abnormality. Normal hepatopedal blood fl ow in the main portal vein. Gallbladder: Sludge or tiny stones are identified in the fundus of the gallbladder.. Bile ducts: No significant abnormality. Common bile duct measures 10.9 mm. Kidneys: Right: 10.8 cm in length. Left: 9.6 cm in length. The renal parenchyma is slightly echoge bayron. Scattered simple cysts are noted bilaterally.. Spleen: No significant abnormality. Free fluid: None. Additional Findings: None. IMPRESSION: Unremarkable sonographic appearance of the liver. Sludge or tiny stones are identified in the fundus of the gallbladder. The common bile duct is dilate d up to 10.9 mm but no obstructing lesion is confidently identified on ultrasound or CT. [place] thiasis should be considered. Nonspecific renal parenchymal disease and scattered renal cysts.. Signer Name: Arian Perdomo Jr, MD Signed: 08/21/2019 9:01 AM Workstation Name: [id number]
--- NOTE | 2019-08-21 10:17 | Gastroenterology Consultation ---
<ASHISH LEDBETTER - Last Filed: 08/21/19 12:12> History of Present Illness - Reason for Consult Consult date: 08/21/19 transaminitis Requesting physician: RENA SOMMER - History of Present Illness Patient is a 84 y/o female with PMH of HTN, DM, CAD (s/p PCI), cardiomyopathy (s/p ICD), CVA, seizure disorder who presented to ED with c/o generalized weakness, worsening appetite, and SOB with cough. Upon admission, she was found to have hypokalemia, acute renal failure, elevated troponin, [place] [address]. Cardiology and nephrology following. GI has been consulted for transaminitis. Liver normal on abd CT and acute hepatitis panel negative. This morning patient was resting in bed w/o acute distress but somnolent/confused and unable to provide history. History obtained via chart review and with assistance of family at bedside. There is no prior hx or Fhx of liver disease. No ETOH abuse or IV drug use. No new medications. No evidence of abd pain, N/V, jaundice, or signs of bleeding upon exam. Past History Past Medical History: CAD (Status post PCI in 2013), diabetes, hypertension, hyperlipidemia, seizures Past Surgical History: Other (ICD placement) Social history: lives with family. denies: smoking, alcohol abuse, IV drug use Family history: hypertension Medications and Allergies Allergies Allergy/AdvReac Type Severity Reaction Status Date / Time No Known Allergies Allergy Verified 11/29/13 10:39 Home Medications Medication Instructions Recorded Confirmed Last Taken Type ALPRAZolam [Xanax TAB] 0.5 mg PO BID 03/21/13 08/20/19 01/29/14 History Amlodipine Bes/Olmesartan Med 2.5 mg PO QDAY 03/21/13 08/20/19 1 Day Ago History [Shekhar 10-20 mg] ~08/19/19 Glimepiride [Amaryl] 2 mg PO QAM 03/21/13 08/20/19 1 Day Ago History ~08/19/19 2 mg Losartan [Cozaar] 25 mg PO QDAY 03/21/13 08/20/19 1 Day Ago History ~08/19/19 25 mg Atorvastatin [Lipitor] 40 mg PO QHS 11/13/13 08/20/19 01/29/14 History Oxycodone HCl/Acetaminophen 1 each PO Q6HR PRN #20 tablet 11/29/13 08/20/19 01/30/14 Rx [Percocet 7.5/325 mg] Aspirin EC [Ecotrin] 325 mg PO QDAY #30 tablet 02/08/14 08/20/19 Unknown Rx Clopidogrel [Plavix] 75 mg PO QDAY #30 tablet 02/08/14 08/20/19 Unknown Rx Pantoprazole [Protonix TAB] 40 mg PO QDAY #30 tablet 02/08/14 08/20/19 1 Day Ago Rx ~08/19/19 40 mg carvediloL [Coreg] 3.125 mg PO BID #60 tablet 02/08/14 08/20/19 Unknown Rx levETIRAcetam [Keppra TAB] 1,500 mg PO BID 08/20/19 08/20/19 Unknown History Active Meds: Active Medications Alprazolam (Xanax) 0.5 mg PO BID [facility] Last Admin: 08/21/19 08:21 Dose: 0.5 mg Documented by: Aspirin (Ecotrin) 325 mg PO QDAY [facility] Last Admin: 08/20/19 11:53 Dose: 325 mg Documented by: Carvedilol (Coreg) 3.125 mg PO BID [facility] Last Admin: 08/20/19 21:09 Dose: Not Given Documented by: Clopidogrel Bisulfate (Plavix) 75 mg PO QDAY [facility] Last Admin: 08/20/19 11:54 Dose: 75 mg Documented by: Famotidine (Pepcid) 20 mg IV DAILY [facility] Last Admin: 08/20/19 23:02 Dose: 20 mg Documented by: Glimepiride (Amaryl) 2 mg PO QDDIAB [facility] Last Admin: 08/20/19 12:01 Dose: 2 mg Documented by: Hydralazine HCl (Apresoline) 10 mg IV Q4HR PRN PRN Reason: Hypertension Potassium Chloride/Sodium Chloride (Ns/Kcl 20meq) 20 meq in 1,000 mls @ 125 mls/hr IV DIRECT [facility] Last Admin: 08/20/19 14:17 Dose: 75 mls/hr Documented by: Heparin Sodium/Sodium Chloride (Heparin/ 0.45% Nacl-25,000 Unit/500 Ml) 25,000 unit in 500 mls @ 20 mls/hr IV TITRATE [facility]; Protocol Last Titration: 08/21/19 04:29 Dose: 1,050 units/hr, 21 mls/hr Documented by: Cefepime HCl (Cefepime/Ns 2 Gm/100 Ml) 2 gm in 100 mls @ 200 mls/hr IV Q24H [facility]; Protocol Potassium Chloride (Kcl 10meq/100ml) 10 meq in 100 mls @ 100 mls/hr IV Q1H [facility] Stop: 08/21/19 12:29 Insulin Human Lispro (Humalog) 0 unit SUB-Q ACHS [facility]; Protocol Last Admin: 08/21/19 08:22 Dose: Not Given Documented by: Levetiracetam (Keppra) 1,500 mg PO BID [facility] Last Admin: 08/20/19 20:59 Dose: 1,500 mg Documented by: Morphine Sulfate (Morphine) 2 mg IV Q4H PRN PRN Reason: Pain, Moderate (4-6) Nitroglycerin (Nitrostat) 0.4 mg SL .Q5MIN PRN PRN Reason: Chest Pain Pantoprazole Sodium (Protonix) 40 mg PO QDAY [facility] Last Admin: 08/20/19 11:53 Dose: 40 mg Documented by: medications reviewed/updated as required Review of Systems - Review of Systems ROS unobtainable: due to mental status Exam - Constitutional Vital Signs: Temp Pulse Resp BP Pulse Ox 97.6 F 70 18 133/58 99 08/21/19 07:42 08/21/19 07:42 08/21/19 07:42 08/21/19 07:42 08/21/19 07:42 General appearance: no acute distress - EENT Eyes: other (no scleral icterus) - Respiratory Respiratory effort: normal Respiratory: bilateral: diminished - Cardiovascular Rhythm: regular - Gastrointestinal General gastrointestinal: Present: soft, non-tender, non-distended, normal bowel sounds - Integumentary Integumentary: Present: warm, dry - Neurologic Neurological: oriented to person, other (somnolent) - Labs CBC & Chem 7: 08/20/19 23:09 08/21/19 02:27 Lab Results: Laboratory Results - last 24 hr 08/20/19 08/20/19 08/20/19 21:28 23:09 23:09 Hgb Hct Plt Count PT INR APTT Heparin Anti-Xa Level Sodium Potassium Chloride Carbon Dioxide Anion Gap BUN Creatinine Estimated GFR BUN/Creatinine Ratio Glucose POC Glucose 234 H Lactic Acid 1.70 Calcium Total Bilirubin AST ALT Alkaline Phosphatase Total Creatine Kinase CK-MB (CK-2) CK-MB (CK-2) Rel Index Troponin T Total Protein Albumin Albumin/Globulin Ratio Hepatitis A IgM Ab Non-reactive Hep Bs Antigen Non-reactive Hep B Core IgM Ab Non-reactive Hepatitis C Antibody Non-reactive 08/20/19 08/20/19 08/20/19 23:09 23:09 23:09 Hgb 11.7 Hct 34.7 Plt Count 131 L PT 16.4 H INR 1.30 H APTT 59.6 H Heparin Anti-Xa Level Sodium Potassium Chloride Carbon Dioxide Anion Gap BUN Creatinine Estimated GFR BUN/Creatinine Ratio Glucose POC Glucose Lactic Acid Calcium Total Bilirubin AST ALT Alkaline Phosphatase Total Creatine Kinase 99359 H CK-MB (CK-2) 79.6 H CK-MB (CK-2) Rel Index 0.3 Troponin T 0.190 H* Total Protein Albumin Albumin/Globulin Ratio Hepatitis A IgM Ab Hep Bs Antigen Hep B Core IgM Ab Hepatitis C Antibody 08/21/19 08/21/19 08/21/19 02:27 02:27 05:35 Hgb Hct Plt Count PT INR APTT Heparin Anti-Xa Level 0.17 L Sodium 141 Potassium 2.8 L* Chloride 102.7 Carbon Dioxide 18 L Anion Gap 23 BUN 60 H Creatinine 6.3 H Estimated GFR 8 BUN/Creatinine Ratio 10 Glucose 184 H POC Glucose Lactic Acid Calcium 7.9 L Total Bilirubin 0.30 AST 550 H ALT 185 H Alkaline Phosphatase 68 Total Creatine Kinase 13375 H CK-MB (CK-2) 73.0 H CK-MB (CK-2) Rel Index 0.3 Troponin T 0.196 H* Total Protein 5.4 L Albumin 3.2 L Albumin/Globulin Ratio 1.5 Hepatitis A IgM Ab Hep Bs Antigen Hep B Core IgM Ab Hepatitis C Antibody 08/21/19 07:56 Hgb Hct Plt Count PT INR APTT Heparin Anti-Xa Level Sodium Potassium Chloride Carbon Dioxide Anion Gap BUN Creatinine Estimated GFR BUN/Creatinine Ratio Glucose POC Glucose 150 H Lactic Acid Calcium Total Bilirubin AST ALT Alkaline Phosphatase Total Creatine Kinase CK-MB (CK-2) CK-MB (CK-2) Rel Index Troponin T Total Protein Albumin Albumin/Globulin Ratio Hepatitis A IgM Ab Hep Bs Antigen Hep B Core IgM Ab Hepatitis C Antibody Assessment and Plan 1.Transaminitis -plt WNL on admission -INR 1.30 -AST 550, ALT 185-stable (T.stephanie and alk phos WNL) -acute hepatitis panel negative -liver normal on abd CT -etiology-likely 2/2 rhabdomyolysis vs other -abd U/S pending -avoid hepatotoxic agents -continue to trend labs (INR in am) and supportive care -will follow 2.Acute kidney failure 3.severe hypokalemia 4.NSTEMI 5.CAD 6.cardiomyopathy (s/p ICD; resolving; EF 55%) 7.metabolic acidosis 8.DM 9.dyslipidemia 10.HTN <ERNESTO NORTH - Last Filed: 08/21/19 16:02> Medications and Allergies Active Meds: Active Medications Alprazolam (Xanax) 0.5 mg PO BID [facility] Last Admin: 08/21/19 08:21 Dose: 0.5 mg Documented by: Aspirin (Ecotrin) 325 mg PO QDAY [facility] Last Admin: 08/20/19 11:53 Dose: 325 mg Documented by: Carvedilol (Coreg) 3.125 mg PO BID [facility] Last Admin: 08/20/19 21:09 Dose: Not Given Documented by: Clopidogrel Bisulfate (Plavix) 75 mg PO QDAY [facility] Last Admin: 08/20/19 11:54 Dose: 75 mg Documented by: Famotidine (Pepcid) 20 mg IV DAILY [facility] Last Admin: 08/20/19 23:02 Dose: 20 mg Documented by: Glimepiride (Amaryl) 2 mg PO QDDIAB [facility] Last Admin: 08/20/19 12:01 Dose: 2 mg Documented by: Hydralazine HCl (Apresoline) 10 mg IV Q4HR PRN PRN Reason: Hypertension Potassium Chloride/Sodium Chloride (Ns/Kcl 20meq) 20 meq in 1,000 mls @ 125 mls/hr IV DIRECT [facility] Last Admin: 08/20/19 14:17 Dose: 75 mls/hr Documented by: Heparin Sodium/Sodium Chloride (Heparin/ 0.45% Nacl-25,000 Unit/500 Ml) 25,000 unit in 500 mls @ 20 mls/hr IV TITRATE [facility]; Protocol Last Titration: 08/21/19 04:29 Dose: 1,050 units/hr, 21 mls/hr Documented by: Cefepime HCl (Cefepime/Ns 2 Gm/100 Ml) 2 gm in 100 mls @ 200 mls/hr IV Q24H [facility]; Protocol Insulin Human Lispro (Humalog) 0 unit SUB-Q ACHS [facility]; Protocol Last Admin: 08/21/19 08:22 Dose: Not Given Documented by: Levetiracetam (Keppra) 1,500 mg PO BID [facility] Last Admin: 08/20/19 20:59 Dose: 1,500 mg Documented by: Morphine Sulfate (Morphine) 2 mg IV Q4H PRN PRN Reason: Pain, Moderate (4-6) Nitroglycerin (Nitrostat) 0.4 mg SL .Q5MIN PRN PRN Reason: Chest Pain Pantoprazole Sodium (Protonix) 40 mg PO QDAY [facility] Last Admin: 08/20/19 11:53 Dose: 40 mg Documented by: Exam - Constitutional Vital Signs: Temp Pulse Resp BP Pulse Ox 97.6 F 70 18 133/58 99 08/21/19 07:42 08/21/19 07:42 08/21/19 07:42 08/21/19 07:42 08/21/19 07:42 - Labs CBC & Chem 7: 08/20/19 23:09 08/21/19 02:27 Lab Results: Laboratory Results - last 24 hr 08/20/19 08/20/19 08/20/19 21:28 23:09 23:09 Hgb Hct Plt Count PT INR APTT Heparin Anti-Xa Level Sodium Potassium Chloride Carbon Dioxide Anion Gap BUN Creatinine Estimated GFR BUN/Creatinine Ratio Glucose POC Glucose 234 H Lactic Acid 1.70 Calcium Total Bilirubin AST ALT Alkaline Phosphatase Total Creatine Kinase CK-MB (CK-2) CK-MB (CK-2) Rel Index Troponin T Total Protein Albumin Albumin/Globulin Ratio Hepatitis A IgM Ab Non-reactive Hep Bs Antigen Non-reactive Hep B Core IgM Ab Non-reactive Hepatitis C Antibody Non-reactive 08/20/19 08/20/19 08/20/19 23:09 23:09 23:09 Hgb 11.7 Hct 34.7 Plt Count 131 L PT 16.4 H INR 1.30 H APTT 59.6 H Heparin Anti-Xa Level Sodium Potassium Chloride Carbon Dioxide Anion Gap BUN Creatinine Estimated GFR BUN/Creatinine Ratio Glucose POC Glucose Lactic Acid Calcium Total Bilirubin AST ALT Alkaline Phosphatase Total Creatine Kinase 16444 H CK-MB (CK-2) 79.6 H CK-MB (CK-2) Rel Index 0.3 Troponin T 0.190 H* Total Protein Albumin Albumin/Globulin Ratio Hepatitis A IgM Ab Hep Bs Antigen Hep B Core IgM Ab Hepatitis C Antibody 08/21/19 08/21/19 08/21/19 02:27 02:27 05:35 Hgb Hct Plt Count PT INR APTT Heparin Anti-Xa Level 0.17 L Sodium 141 Potassium 2.8 L* Chloride 102.7 Carbon Dioxide 18 L Anion Gap 23 BUN 60 H Creatinine 6.3 H Estimated GFR 8 BUN/Creatinine Ratio 10 Glucose 184 H POC Glucose Lactic Acid Calcium 7.9 L Total Bilirubin 0.30 AST 550 H ALT 185 H Alkaline Phosphatase 68 Total Creatine Kinase 68477 H CK-MB (CK-2) 73.0 H CK-MB (CK-2) Rel Index 0.3 Troponin T 0.196 H* Total Protein 5.4 L Albumin 3.2 L Albumin/Globulin Ratio 1.5 Hepatitis A IgM Ab Hep Bs Antigen Hep B Core IgM Ab Hepatitis C Antibody 08/21/19 08/21/19 07:56 11:48 Hgb Hct Plt Count PT INR APTT Heparin Anti-Xa Level Sodium Potassium Chloride Carbon Dioxide Anion Gap BUN Creatinine Estimated GFR BUN/Creatinine Ratio Glucose POC Glucose 150 H 186 H Lactic Acid Calcium Total Bilirubin AST ALT Alkaline Phosphatase Total Creatine Kinase CK-MB (CK-2) CK-MB (CK-2) Rel Index Troponin T Total Protein Albumin Albumin/Globulin Ratio Hepatitis A IgM Ab Hep Bs Antigen Hep B Core IgM Ab Hepatitis C Antibody Assessment and Plan Patient seen and examined; agree with note above. suspect elevation in liver enzymes primarily from rhabdomyolysis. may have underlying liver disease as well. trend labs and supportive care as above.
--- NOTE | 2019-08-21 10:24 | Consultation ---
History of Present Illness Consult date: 08/21/19 Consult reason: elevated troponin History of present illness: This is an 84-year old woman with multiple medical problems. She has a history of ischemic cardiomyopathy and coronary artery disease. There is a cardiac defibrillator insitu. Her latest cardiac workup was done 6 months ago. She underwent a stress thallium test reports a normal perfusion scan. A follow up echocardiogram reports a normal left ventricular systolic function, ejection fraction 55%, consistent with resolving cardiomyopathy. Patient was brought to this hospital with poor oral intake and generalized weakness over several days. On admission, there is severe hypokalemia, acute kidney disease and elevated trans[place]initis[place] [address] with a relative index of 0.3, findings consistent with rhabdomyolysis. There were no complaints of chest pain or unusual shortness of breath. An ECG is atrial paced rhythm with a LBBB. Cardiac consultation has been requested. Past History Past Medical History: CAD (Status post PCI in 2013), diabetes, hypertension, hyperlipidemia, seizures Past Surgical History: Other (ICD placement) Social history: lives with family. denies: smoking, alcohol abuse, IV drug use Family history: hypertension Medications and Allergies Allergies Allergy/AdvReac Type Severity Reaction Status Date / Time No Known Allergies Allergy Verified 11/29/13 10:39 Home Medications Medication Instructions Recorded Confirmed Last Taken Type ALPRAZolam [Xanax TAB] 0.5 mg PO BID 03/21/13 08/20/19 01/29/14 History Amlodipine Bes/Olmesartan Med 2.5 mg PO QDAY 03/21/13 08/20/19 1 Day Ago History [Shekhar 10-20 mg] ~08/19/19 Glimepiride [Amaryl] 2 mg PO QAM 03/21/13 08/20/19 1 Day Ago History ~08/19/19 2 mg Losartan [Cozaar] 25 mg PO QDAY 03/21/13 08/20/19 1 Day Ago History ~08/19/19 25 mg Atorvastatin [Lipitor] 40 mg PO QHS 11/13/13 08/20/19 01/29/14 History Oxycodone HCl/Acetaminophen 1 each PO Q6HR PRN #20 tablet 11/29/13 08/20/19 01/30/14 Rx [Percocet 7.5/325 mg] Aspirin EC 325 mg PO QDAY #30 tablet 02/08/14 08/20/19 Unknown Rx Clopidogrel [Plavix] 75 mg PO QDAY #30 tablet 02/08/14 08/20/19 Unknown Rx Pantoprazole [Protonix TAB] 40 mg PO QDAY #30 tablet 02/08/14 08/20/19 1 Day Ago Rx ~08/19/19 40 mg carvediloL [Coreg] 3.125 mg PO BID #60 tablet 02/08/14 08/20/19 Unknown Rx levETIRAcetam [Keppra TAB] 1,500 mg PO BID 08/20/19 08/20/19 Unknown History Active Meds: Active Medications Alprazolam (Xanax) 0.5 mg PO BID [facility] Last Admin: 08/21/19 08:21 Dose: 0.5 mg Documented by: Aspirin (Ecotrin) 325 mg PO QDAY [facility] Last Admin: 08/20/19 11:53 Dose: 325 mg Documented by: Carvedilol (Coreg) 3.125 mg PO BID [facility] Last Admin: 08/20/19 21:09 Dose: Not Given Documented by: Clopidogrel Bisulfate (Plavix) 75 mg PO QDAY [facility] Last Admin: 08/20/19 11:54 Dose: 75 mg Documented by: Famotidine (Pepcid) 20 mg IV DAILY [facility] Last Admin: 08/20/19 23:02 Dose: 20 mg Documented by: Glimepiride (Amaryl) 2 mg PO QDDIAB [facility] Last Admin: 08/20/19 12:01 Dose: 2 mg Documented by: Hydralazine HCl (Apresoline) 10 mg IV Q4HR PRN PRN Reason: Hypertension Potassium Chloride/Sodium Chloride (Ns/Kcl 20meq) 20 meq in 1,000 mls @ 125 mls/hr IV DIRECT [facility] Last Admin: 08/20/19 14:17 Dose: 75 mls/hr Documented by: Heparin Sodium/Sodium Chloride (Heparin/ 0.45% Nacl-25,000 Unit/500 Ml) 25,000 unit in 500 mls @ 20 mls/hr IV TITRATE [facility]; Protocol Last Titration: 08/21/19 04:29 Dose: 1,050 units/hr, 21 mls/hr Documented by: Cefepime HCl (Cefepime/Ns 2 Gm/100 Ml) 2 gm in 100 mls @ 200 mls/hr IV Q24H [facility]; Protocol Potassium Chloride (Kcl 10meq/100ml) 10 meq in 100 mls @ 100 mls/hr IV Q1H [facility] Stop: 08/21/19 12:29 Insulin Human Lispro (Humalog) 0 unit SUB-Q ACHS [facility]; Protocol Last Admin: 08/21/19 08:22 Dose: Not Given Documented by: Levetiracetam (Keppra) 1,500 mg PO BID [facility] Last Admin: 08/20/19 20:59 Dose: 1,500 mg Documented by: Morphine Sulfate (Morphine) 2 mg IV Q4H PRN PRN Reason: Pain, Moderate (4-6) Nitroglycerin (Nitrostat) 0.4 mg SL .Q5MIN PRN PRN Reason: Chest Pain Pantoprazole Sodium (Protonix) 40 mg PO QDAY [facility] Last Admin: 08/20/19 11:53 Dose: 40 mg Documented by: Physical Examination Vital Signs Temp Pulse BP 97.8 F 70 89/46 08/20/19 05:50 08/20/19 05:50 08/20/19 05:50 General appearance: no acute distress HEENT: Positive: PERRL Cardiac: Positive: Reg Rate and Rhythm Lungs: Positive: Decreased Breath Sounds Neuro: Positive: Grossly Intact Results 08/20/19 23:09 08/21/19 02:27 Cardiac Enzymes 08/20/19 08/21/19 08/21/19 Range/Units 23:09 02:27 05:35 AST 550 H (5-40) units/L CK-MB (CK-2) 79.6 H 73.0 H (0.0-4.0) ng/mL Coagulation 08/20/19 Range/Units 23:09 PT 16.4 H (12.2-14.9) Sec. INR 1.30 H (0.87-1.13) APTT 59.6 H (24.2-36.6) Sec. CBC 08/20/19 Range/Units 23:09 Hgb 11.7 (10.1-14.3) gm/dl Hct 34.7 (30.3-42.9) % Plt Count 131 L (140-440) K/mm3 Comprehensive Metabolic Panel 08/21/19 Range/Units 02:27 Sodium 141 (137-145) mmol/L Potassium 2.8 L* (3.6-5.0) mmol/L Chloride 102.7 (98-107) mmol/L Carbon Dioxide 18 L (22-30) mmol/L BUN 60 H (7-17) mg/dL Creatinine 6.3 H (0.7-1.2) mg/dL Glucose 184 H (65-100) mg/dL Calcium 7.9 L (8.4-10.2) mg/dL AST 550 H (5-40) units/L ALT 185 H (7-56) units/L Alkaline Phosphatase 68 (35-129) units/L Total Protein 5.4 L (6.3-8.2) g/dL Albumin 3.2 L (3.9-5) g/dL Assessment and Plan Rhabdomyolysis Severe hypokalemia Acute kidney disease Elevated transaminitis Dehydration Hx of CAD normal perfusion MPI 01/2019 Hx of Ischemic CMP, resolving EF 55% by echo 07/2018 Presence of AICD
--- NOTE | 2019-08-21 12:58 | Progress Note ---
Assessment and Plan - Patient Problems (1) Acute renal failure Current Visit: Yes Status: Acute Plan to address problem: Likely ATN in the setting of rhabdomysolysis. Would recommend increase IVF hydration t0 150 cc/hr with careful monitoring of overall respiratory status. . Avoid nephrotoxins, maintain MAP >mmHg. Agree with hold ARB at this time given renal failure. Renal US did not show any acute abnormalities. (2) Hypokalemia Current Visit: Yes Status: Acute Plan to address problem: Replete per protocol. (3) Hypertensive chronic kidney disease with stage 1 through stage 4 chronic kidney disease, or unspecified chronic kidney disease Current Visit: Yes Status: Acute Plan to address problem: Agree with holding her blood pressure medications at this time given her lower blood pressures. Will monitor off antihypertensives at this time. (4) Type 2 diabetes mellitus with diabetic chronic kidney disease Current Visit: Yes Status: Chronic Plan to address problem: DM management per primary attending. Subjective Date of service: 08/21/19 Interval history: Labs concerning for worsening renal function in the setting of rhabdomyolysis. Statin therapy has been discontinued, and discussed with staff to increase fluid rate to 150 cc/hr. Objective - Vital Signs Vital signs: Vital Signs - 12hr 08/21/19 08/21/19 08/21/19 01:08 03:41 07:42 Temperature 98.0 F 97.6 F Pulse Rate 70 70 70 Respiratory 18 18 Rate Blood Pressure 106/43 133/58 O2 Sat by Pulse 99 99 Oximetry - General Appearance General appearance: appears stated age, chronically ill, frail EENT: ATNC, PERRL Neck: no JVD, no thyromegaly Respiratory: Present: Clear to Ascultation Cardiology: regular Gastrointestinal: normal, normoactive bowel sounds Integumentary: no rash, warm and dry Neurologic: no focal deficit Musculoskeletal: deferred Psychiatric: mood/affect appropriate - Lab 08/20/19 23:09 08/21/19 02:27 Most recent lab results Calcium 7.9 mg/dL (8.4-10.2) L 08/21/19 02:27 Magnesium 2.30 mg/dL (1.7-2.3) 08/20/19 Unknown - Allied health notes Allied health notes reviewed: nursing Medications & Allergies - Medications Allergies/Adverse Reactions: Allergies No Known Allergies Allergy (Verified 11/29/13 10:39) Home Medications: Home Medications Medication Instructions Recorded Confirmed Last Taken Type ALPRAZolam [Xanax TAB] 0.5 mg PO BID 03/21/13 08/20/19 01/29/14 History Amlodipine Bes/Olmesartan Med 2.5 mg PO QDAY 03/21/13 08/20/19 1 Day Ago History [Shekhar 10-20 mg] ~08/19/19 Glimepiride [Amaryl] 2 mg PO QAM 03/21/13 08/20/19 1 Day Ago History ~08/19/19 2 mg Losartan [Cozaar] 25 mg PO QDAY 03/21/13 08/20/19 1 Day Ago History ~08/19/19 25 mg Atorvastatin [Lipitor] 40 mg PO QHS 11/13/13 08/20/19 01/29/14 History Oxycodone HCl/Acetaminophen 1 each PO Q6HR PRN #20 tablet 11/29/13 08/20/19 Rx [Percocet 7.5/325 mg] Aspirin EC 325 mg PO QDAY #30 tablet 02/08/14 08/20/19 Unknown Rx Clopidogrel [Plavix] 75 mg PO QDAY #30 tablet 02/08/14 08/20/19 Unknown Rx Pantoprazole [Protonix TAB] 40 mg PO QDAY #30 tablet 02/08/14 08/20/19 1 Day Ago Rx ~08/19/19 40 mg carvediloL [Coreg] 3.125 mg PO BID #60 tablet 02/08/14 08/20/19 Unknown Rx levETIRAcetam [Keppra TAB] 1,500 mg PO BID 08/20/19 08/20/19 Unknown History Active Medications: Generic Name Dose Route Start Last Admin Trade Name Freq PRN Reason Stop Dose Admin Alprazolam 0.5 mg 08/20/19 10:00 08/21/19 08:21 Xanax PO 0.5 mg BID [facility] Administration Aspirin 325 mg 08/20/19 10:00 08/20/19 11:53 Ecotrin PO 325 mg QDAY [facility] Administration Carvedilol 3.125 mg 08/20/19 22:00 08/20/19 21:09 Coreg PO Not Given BID [facility] Clopidogrel Bisulfate 75 mg 08/20/19 10:00 08/20/19 11:54 Plavix PO 75 mg QDAY [facility] Administration Famotidine 20 mg 08/20/19 22:00 08/20/19 23:02 Pepcid IV 20 mg DAILY [facility] Administration Glimepiride 2 mg 08/20/19 10:00 08/20/19 12:01 Amaryl PO 2 mg QDDIAB [facility] Administration Hydralazine HCl 10 mg 08/20/19 09:00 Apresoline IV Q4HR PRN Hypertension Potassium Chloride/Sodium Chloride 20 meq in 1,000 mls @ 125 mls/hr 08/20/19 12:00 08/20/19 14:17 Ns/Kcl 20meq IV 75 mls/hr DIRECT [facility] Administration Heparin Sodium/Sodium Chloride 25,000 unit in 500 mls @ 20 mls/hr 08/20/19 19:00 08/21/19 04:29 Heparin/ 0.45% Nacl-25,000 Unit/500 Ml IV 1,050 units/hr TITRATE [facility] 21 mls/hr Titration Protocol 1,000 UNITS/HR Cefepime HCl 2 gm in 100 mls @ 200 mls/hr 08/22/19 08:00 Cefepime/Ns 2 Gm/100 Ml IV Q24H [facility] Protocol Insulin Human Lispro 0 unit 08/20/19 22:00 08/21/19 08:22 Humalog SUB-Q Not Given ACHS [facility] Protocol Levetiracetam 1,500 mg 08/20/19 22:00 08/20/19 20:59 Keppra PO 1,500 mg BID [facility] Administration Morphine Sulfate 2 mg 08/20/19 19:01 Morphine IV Q4H PRN Pain, Moderate (4-6) Nitroglycerin 0.4 mg 08/20/19 19:00 Nitrostat SL .Q5MIN PRN Chest Pain Pantoprazole Sodium 40 mg 08/20/19 10:00 08/20/19 11:53 Protonix PO 40 mg QDAY [facility] Administration
[2019-08-21] MEDS: HEPARIN/ 0.45% NACL DRIP 25,000 UNIT/500 ML BAG IV SCH (16:01)
--- NOTE | 2019-08-21 20:37 | Event Note ---
Date: 08/21/19 Discontinue morphine per family's request. As per family patient received IV morphine earlier today which made her confused. Instead they are requesting po Percocet for pain.
[2019-08-21 20:40] LABS: Chloride, Urine 22.8 mmolL (110-250); Creatinine,Urine 104.3 mg/dL (0.1-20.0)
[2019-08-21 20:47] LABS: Amphetamine Screen,Urine PRESUMPTIVE NEGATIVE; Cannabinoid Screen,Urine PRESUMPTIVE NEGATIVE; Cocaine Screen,Urine PRESUMPTIVE NEGATIVE; Creatinine,Urine 102.1 mg/dL (0.1-20.0); Methadone Screen,Urine PRESUMPTIVE NEGATIVE
[2019-08-21 20:58] LABS: Protein/Creatinine Ratio,Urine 1.72
[2019-08-21 21:11] LABS: Benzodiazepines Screen,Urine PRESUMPTIVE POSITIVE; Opiate Screen,Urine PRESUMPTIVE POSITIVE
[2019-08-21] MEDS: carvediloL 3.125 MG TAB PO SCH (22:12)
[2019-08-21] MEDS: levETIRAcetam 500 MG TAB PO SCH (22:13)
[2019-08-21] MEDS: oxyCODONE /ACETAMINOPHEN 5-325MG TAB PO PRN (22:13)
[2019-08-22] MEDS: oxyCODONE /ACETAMINOPHEN 5-325MG TAB PO PRN ×2 (03:57→22:23)
[2019-08-22 06:03] LABS: Hematocrit 34.6 % (30.3-42.9); Hemoglobin 11.4 gm/dl (10.1-14.3)
[2019-08-22 06:14] LABS: INR 1.59 (0.87-1.13)
[2019-08-22 06:30] LABS: Albumin 2.6 g/dL (3.9-5); Calcium 7.6 mg/dL (8.4-10.2)
[2019-08-22] MEDS: GLIMEPIRIDE 2 MG TAB PO SCH ×2 (08:57→09:55)
[2019-08-22] MEDS: POTASSIUM CHLORIDE 10 MEQ 10 MEQ/100 ML BAG IV SCH (08:57)
[2019-08-22] MEDS: carvediloL 3.125 MG TAB PO SCH ×3 (08:57→22:24)
[2019-08-22] MEDS: ALPRAZolam 0.5 MG TAB PO SCH ×3 (08:58→22:24)
[2019-08-22] MEDS: PANTOPRAZOLE 40 MG TAB PO SCH ×2 (08:58→09:56)
[2019-08-22] MEDS: levETIRAcetam 500 MG TAB PO SCH ×3 (08:58→22:24)
[2019-08-22] MEDS: FAMOTIDINE 20 MG/2 ML INJ IV SCH ×2 (08:58→09:56)
[2019-08-22] MEDS: ASPIRIN EC 325 MG TAB PO SCH ×2 (08:58→09:56)
[2019-08-22] MEDS: CLOPIDOGREL 75 MG TAB PO SCH ×2 (08:58→09:54)
[2019-08-22] MEDS: INSULIN LISPRO 100 UNIT/ML SUB-Q SCH ×5 (08:59→22:18)
[2019-08-22] MEDS ORDERED: SODIUM BICARBONATE IV SCH (09:00)
[2019-08-22] MEDS ORDERED: WATER FOR INJECTION IV SCH (09:00)
[2019-08-22] MEDS: CEFEPIME/NS 2 GM/100 ML 2 GM/100 ML BAG IV SCH (09:56)
--- NOTE | 2019-08-22 10:09 | Progress Note ---
Assessment and Plan - Patient Problems (1) Acute renal failure Current Visit: Yes Status: Acute Plan to address problem: Likely ATN in the setting of rhabdomysolysis. Continue with IVF hydration, which we are changing to isotonic bicarbonate gtt given level of acidosis this am . Avoid nephrotoxins, maintain MAP >mmHg. Agree with hold ARB at this time given renal failure. Renal US did not show any acute abnormalities. (2) Hypokalemia Current Visit: Yes Status: Acute Plan to address problem: Repleted per protocol. Improved at this time. (3) Hypertensive chronic kidney disease with stage 1 through stage 4 chronic kidney disease, or unspecified chronic kidney disease Current Visit: Yes Status: Acute Plan to address problem: Agree with holding her blood pressure medications at this time given her lower blood pressures. Will monitor off antihypertensives at this time. (4) Type 2 diabetes mellitus with diabetic chronic kidney disease Current Visit: Yes Status: Chronic Plan to address problem: DM management per primary attending. (5) Metabolic acidosis Current Visit: Yes Status: Acute Plan to address problem: Ordered placed to switch IVF to D5W/3 amps with NaHCO3 at 100 cc/hr. Will continue to monitor . Subjective Date of service: 08/22/19 Interval history: Patient is more altered, agitated this am. Labs reviewed, and potassium levels have repleted. CPK levels pending this am. Ammonia levels ordered. Objective - Vital Signs Vital signs: Vital Signs - 12hr 08/21/19 08/22/19 08/22/19 22:12 05:06 07:54 Temperature 98.6 F 97.5 F L Pulse Rate 70 78 70 Respiratory 18 Rate Blood Pressure 130/55 130/57 Blood Pressure 110/68 [Left] O2 Sat by Pulse 99 Oximetry - General Appearance General appearance: chronically ill, frail EENT: ATNC Neck: no JVD Respiratory: Present: Clear to Ascultation Cardiology: regular, S1S2 Gastrointestinal: normal Integumentary: warm and dry Neurologic: confused Musculoskeletal: deferred Psychiatric: agitated - Lab 08/22/19 04:34 08/22/19 04:34 Most recent lab results Calcium 7.6 mg/dL (8.4-10.2) L 08/22/19 04:34 Magnesium 2.00 mg/dL (1.7-2.3) 08/22/19 04:34 Urine Creatinine 102.1 mg/dL (0.1-20.0) H 08/21/19 20:00 Urine Sodium 44 mmol/L 08/21/19 10:06 Urine Total Protein 176 mg/dL (5-11.8) H 08/21/19 20:00 - Allied health notes Allied health notes reviewed: nursing Medications & Allergies - Medications Allergies/Adverse Reactions: Allergies No Known Allergies Allergy (Verified 11/29/13 10:39) Home Medications: Home Medications Medication Instructions Recorded Confirmed Last Taken Type ALPRAZolam [Xanax TAB] 0.5 mg PO BID 03/21/13 08/20/19 01/29/14 History Amlodipine Bes/Olmesartan Med 2.5 mg PO QDAY 03/21/13 08/20/19 1 Day Ago History [Shekhar 10-20 mg] ~08/19/19 Glimepiride [Amaryl] 2 mg PO QAM 03/21/13 08/20/19 1 Day Ago History ~08/19/19 2 mg Losartan [Cozaar] 25 mg PO QDAY 03/21/13 08/20/19 1 Day Ago History ~08/19/19 25 mg Atorvastatin [Lipitor] 40 mg PO QHS 11/13/13 08/20/19 01/29/14 History Oxycodone HCl/Acetaminophen 1 each PO Q6HR PRN #20 tablet 11/29/13 08/20/19 01/30/14 Rx [Percocet 7.5/325 mg] Aspirin EC [Ecotrin] 325 mg PO QDAY #30 tablet 02/08/14 08/20/19 Unknown Rx Clopidogrel [Plavix] 75 mg PO QDAY #30 tablet 02/08/14 08/20/19 Unknown Rx Pantoprazole [Protonix TAB] 40 mg PO QDAY #30 tablet 02/08/14 08/20/19 1 Day Ago Rx ~08/19/19 40 mg carvediloL [Coreg] 3.125 mg PO BID #60 tablet 02/08/14 08/20/19 Unknown Rx levETIRAcetam [Keppra TAB] 1,500 mg PO BID 08/20/19 08/20/19 Unknown History Active Medications: Generic Name Dose Route Start Last Admin Trade Name Freq PRN Reason Stop Dose Admin Alprazolam 0.5 mg 08/20/19 10:00 08/22/19 08:58 Xanax PO Not Given BID [facility] Aspirin 325 mg 08/20/19 10:00 08/22/19 08:58 Ecotrin PO Not Given QDAY [facility] Carvedilol 3.125 mg 08/20/19 22:00 08/22/19 08:57 Coreg PO Not Given BID [facility] Clopidogrel Bisulfate 75 mg 08/20/19 10:00 08/22/19 08:58 Plavix PO Not Given QDAY [facility] Famotidine 20 mg 08/20/19 22:00 08/22/19 08:58 Pepcid IV Not Given DAILY [facility] Glimepiride 2 mg 08/20/19 10:00 08/22/19 08:57 Amaryl PO Not Given QDDIAB [facility] Hydralazine HCl 10 mg 08/20/19 09:00 Apresoline IV Q4HR PRN Hypertension Cefepime HCl 2 gm in 100 mls @ 200 mls/hr 08/22/19 08:00 Cefepime/Ns 2 Gm/100 Ml IV Q24H [facility] Protocol Sodium Bicarbonate 150 meq/ 1,150 mls @ 100 mls/hr 08/22/19 09:00 Dextrose IV DIRECT [facility] Insulin Human Lispro 0 unit 08/20/19 22:00 08/22/19 08:59 Humalog SUB-Q Not Given ACHS [facility] Protocol Levetiracetam 1,500 mg 08/20/19 22:00 08/22/19 08:58 Keppra PO Not Given BID [facility] Nitroglycerin 0.4 mg 08/20/19 19:00 Nitrostat SL .Q5MIN PRN Chest Pain Oxycodone/Acetaminophen 1 tab 08/21/19 20:37 08/22/19 03:57 Percocet 5/325 PO 1 tab Q6H PRN Administration Pain, Moderate (4-6) Pantoprazole Sodium 40 mg 08/20/19 10:00 08/22/19 08:58 Protonix PO Not Given QDAY [facility]
[2019-08-22] MEDS: SODIUM BICARBONATE 150 MEQ in DEXTROSE 5% IN WATER 1,000 ML IV SCH ×2 (10:25→23:02)
[2019-08-22] MEDS ORDERED: NON-FORMULARY EACH (Oxycodone Hcl/Acetaminophen [Percocet 7.5/325 Mg] 1 EACH) PO PRN (10:30)
--- NOTE | 2019-08-22 10:55 | Gastroenterology Progress Note ---
<ASHISH LEDBETTER - Last Filed: 08/22/19 10:55> Assessment and Plan 1.Transaminitis -plt WNL on admission now 128 -INR 1.59 -AST 544/ALT 189-stable (T.stephanie and alk phos WNL) -acute hepatitis panel negative -abd CT showed sludge in gallbladder with no acute cholecystitis or biliary ductal dilatation; liver normal -abd U/S showed sludge vs tiny stones in gallbladder and CBC dilated to 10.9 mm but no obstruction lesion seen -MR/MRCP unable to be done due to AICD -etiology-likely 2/2 rhabdomyolysis vs other -avoid hepatotoxic agents -continue to trend labs and supportive care -further recommendations to follow 2.Acute kidney failure 3.severe hypokalemia 4.NSTEMI 5.CAD 6.cardiomyopathy (s/p ICD; resolving; EF 55%) 7.metabolic acidosis 8.DM 9.dyslipidemia 10.HTN Subjective Date of service: 08/22/19 Principal diagnosis: transaminitis Interval history: Patient remains confused. No acute distress. No evidence of abd pain, N/V, or signs of bleeding. Objective - Constitutional Vitals: Temp Pulse Resp BP Pulse Ox 97.5 F L 70 18 130/57 99 08/22/19 07:54 08/22/19 09:55 08/22/19 07:54 08/22/19 09:55 08/22/19 07:54 General appearance: no acute distress, other (confused) - EENT Eyes: other (no scleral icterus) - Respiratory Respiratory effort: normal Respiratory: bilateral: diminished - Cardiovascular Rhythm: regular - Gastrointestinal General gastrointestinal: Present: soft, non-distended, normal bowel sounds - Neurologic Neurological: disoriented - Labs CBC & Chem 7: 08/22/19 04:34 08/22/19 04:34 Labs: Laboratory Results - last 24 hr 08/21/19 08/21/19 08/21/19 10:06 11:48 16:34 Hgb Hct Plt Count PT INR Heparin Anti-Xa Level Sodium Potassium Chloride Carbon Dioxide Anion Gap BUN Creatinine Estimated GFR BUN/Creatinine Ratio Glucose POC Glucose 186 H 184 H Calcium Magnesium Total Bilirubin AST ALT Alkaline Phosphatase Total Protein Albumin Albumin/Globulin Ratio Urine Creatinine 104.3 H Protein/Creatinin Ratio Urine Sodium 44 Urine Potassium 23.15 Urine Chloride 22.8 L Urine Total Protein Urine Opiates Screen Urine Methadone Screen Acetaminophen Ur Barbiturates Screen Ur Phencyclidine Scrn Ur Amphetamines Screen U Benzodiazepines Scrn Urine Cocaine Screen U Marijuana (THC) Screen Drugs of Abuse Note 08/21/19 08/21/19 08/21/19 19:20 19:20 19:56 Hgb Hct Plt Count PT INR Heparin Anti-Xa Level 1.91 H Sodium Potassium 3.6 D Chloride Carbon Dioxide Anion Gap BUN Creatinine Estimated GFR BUN/Creatinine Ratio Glucose POC Glucose 155 H Calcium Magnesium 2.00 Total Bilirubin AST ALT Alkaline Phosphatase Total Protein Albumin Albumin/Globulin Ratio Urine Creatinine Protein/Creatinin Ratio Urine Sodium Urine Potassium Urine Chloride Urine Total Protein Urine Opiates Screen Urine Methadone Screen Acetaminophen Ur Barbiturates Screen Ur Phencyclidine Scrn Ur Amphetamines Screen U Benzodiazepines Scrn Urine Cocaine Screen U Marijuana (THC) Screen Drugs of Abuse Note 08/21/19 08/22/19 08/22/19 20:00 04:34 04:34 Hgb 11.4 Hct 34.6 Plt Count 128 L PT 19.2 H INR 1.59 H Heparin Anti-Xa Level 1.17 H Sodium Potassium Chloride Carbon Dioxide Anion Gap BUN Creatinine Estimated GFR BUN/Creatinine Ratio Glucose POC Glucose Calcium Magnesium Total Bilirubin AST ALT Alkaline Phosphatase Total Protein Albumin Albumin/Globulin Ratio Urine Creatinine 102.1 H Protein/Creatinin Ratio 1.72 Urine Sodium Urine Potassium Urine Chloride Urine Total Protein 176 H Urine Opiates Screen Presumptive positive Urine Methadone Screen Presumptive negative Acetaminophen Ur Barbiturates Screen Presumptive negative Ur Phencyclidine Scrn Presumptive negative Ur Amphetamines Screen Presumptive negative U Benzodiazepines Scrn Presumptive positive Urine Cocaine Screen Presumptive negative U Marijuana (THC) Screen Presumptive negative Drugs of Abuse Note Disclamer 08/22/19 08/22/19 08/22/19 04:34 04:34 08:08 Hgb Hct Plt Count PT INR Heparin Anti-Xa Level Sodium 137 Potassium 4.2 Chloride 107.4 H Carbon Dioxide 8 L* D Anion Gap 26 BUN 69 H Creatinine 6.1 H Estimated GFR 8 BUN/Creatinine Ratio 11 Glucose 138 H POC Glucose 153 H Calcium 7.6 L Magnesium 2.00 Total Bilirubin 0.30 AST 544 H ALT 189 H Alkaline Phosphatase 62 Total Protein 5.9 L Albumin 2.6 L Albumin/Globulin Ratio 0.8 Urine Creatinine Protein/Creatinin Ratio Urine Sodium Urine Potassium Urine Chloride Urine Total Protein Urine Opiates Screen Urine Methadone Screen Acetaminophen < 5.0 L Ur Barbiturates Screen Ur Phencyclidine Scrn Ur Amphetamines Screen U Benzodiazepines Scrn Urine Cocaine Screen U Marijuana (THC) Screen Drugs of Abuse Note <ERNESTO NORTH Isis - Last Filed: 08/22/19 14:31> Assessment and Plan Patient seen and examined; agree with note above. dilated cbd on US; unable to do mrcp due to aicd. however normal bilirubin and alk phos which suggests non- obstructive process. rhabdo likely primarily contributing to elevated liver enzymes/ast. cont to trend liver enzymes and will manage conservatively from gi stand point. Objective - Constitutional Vitals: Temp Pulse Resp BP Pulse Ox 97.5 F L 70 18 130/57 99 08/22/19 07:54 08/22/19 09:55 08/22/19 07:54 08/22/19 09:55 08/22/19 07:54 - Labs CBC & Chem 7: 08/22/19 04:34 08/22/19 04:34 Labs: Laboratory Results - last 24 hr 08/21/19 08/21/19 08/21/19 10:06 16:34 19:20 Hgb Hct Plt Count PT INR Heparin Anti-Xa Level 1.91 H Sodium Potassium Chloride Carbon Dioxide Anion Gap BUN Creatinine Estimated GFR BUN/Creatinine Ratio Glucose POC Glucose 184 H Calcium Magnesium Total Bilirubin AST ALT Alkaline Phosphatase Ammonia Total Creatine Kinase Total Protein Albumin Albumin/Globulin Ratio Urine Creatinine 104.3 H Protein/Creatinin Ratio Urine Sodium 44 Urine Potassium 23.15 Urine Chloride 22.8 L Urine Total Protein Urine Opiates Screen Urine Methadone Screen Acetaminophen Ur Barbiturates Screen Ur Phencyclidine Scrn Ur Amphetamines Screen U Benzodiazepines Scrn Urine Cocaine Screen U Marijuana (THC) Screen Drugs of Abuse Note 08/21/19 08/21/19 08/21/19 19:20 19:56 20:00 Hgb Hct Plt Count PT INR Heparin Anti-Xa Level Sodium Potassium 3.6 D Chloride Carbon Dioxide Anion Gap BUN Creatinine Estimated GFR BUN/Creatinine Ratio Glucose POC Glucose 155 H Calcium Magnesium 2.00 Total Bilirubin AST ALT Alkaline Phosphatase Ammonia Total Creatine Kinase Total Protein Albumin Albumin/Globulin Ratio Urine Creatinine 102.1 H Protein/Creatinin Ratio 1.72 Urine Sodium Urine Potassium Urine Chloride Urine Total Protein 176 H Urine Opiates Screen Presumptive positive Urine Methadone Screen Presumptive negative Acetaminophen Ur Barbiturates Screen Presumptive negative Ur Phencyclidine Scrn Presumptive negative Ur Amphetamines Screen Presumptive negative U Benzodiazepines Scrn Presumptive positive Urine Cocaine Screen Presumptive negative U Marijuana (THC) Screen Presumptive negative Drugs of Abuse Note Disclamer 08/22/19 08/22/19 08/22/19 04:34 04:34 04:34 Hgb 11.4 Hct 34.6 Plt Count 128 L PT 19.2 H INR 1.59 H Heparin Anti-Xa Level 1.17 H Sodium 137 Potassium 4.2 Chloride 107.4 H Carbon Dioxide 8 L* D Anion Gap 26 BUN 69 H Creatinine 6.1 H Estimated GFR 8 BUN/Creatinine Ratio 11 Glucose 138 H POC Glucose Calcium 7.6 L Magnesium 2.00 Total Bilirubin 0.30 AST 544 H ALT 189 H Alkaline Phosphatase 62 Ammonia Total Creatine Kinase Total Protein 5.9 L Albumin 2.6 L Albumin/Globulin Ratio 0.8 Urine Creatinine Protein/Creatinin Ratio Urine Sodium Urine Potassium Urine Chloride Urine Total Protein Urine Opiates Screen Urine Methadone Screen Acetaminophen Ur Barbiturates Screen Ur Phencyclidine Scrn Ur Amphetamines Screen U Benzodiazepines Scrn Urine Cocaine Screen U Marijuana (THC) Screen Drugs of Abuse Note 08/22/19 08/22/19 08/22/19 04:34 08:08 11:21 Hgb Hct Plt Count PT INR Heparin Anti-Xa Level Sodium Potassium Chloride Carbon Dioxide Anion Gap BUN Creatinine Estimated GFR BUN/Creatinine Ratio Glucose POC Glucose 153 H 174 H Calcium Magnesium Total Bilirubin AST ALT Alkaline Phosphatase Ammonia Total Creatine Kinase Total Protein Albumin Albumin/Globulin Ratio Urine Creatinine Protein/Creatinin Ratio Urine Sodium Urine Potassium Urine Chloride Urine Total Protein Urine Opiates Screen Urine Methadone Screen Acetaminophen < 5.0 L Ur Barbiturates Screen Ur Phencyclidine Scrn Ur Amphetamines Screen U Benzodiazepines Scrn Urine Cocaine Screen U Marijuana (THC) Screen Drugs of Abuse Note 08/22/19 08/22/19 11:43 11:43 Hgb Hct Plt Count PT INR Heparin Anti-Xa Level Sodium Potassium Chloride Carbon Dioxide Anion Gap BUN Creatinine Estimated GFR BUN/Creatinine Ratio Glucose POC Glucose Calcium Magnesium Total Bilirubin AST ALT Alkaline Phosphatase Ammonia 10.0 L Total Creatine Kinase 50679 H Total Protein Albumin Albumin/Globulin Ratio Urine Creatinine Protein/Creatinin Ratio Urine Sodium Urine Potassium Urine Chloride Urine Total Protein Urine Opiates Screen Urine Methadone Screen Acetaminophen Ur Barbiturates Screen Ur Phencyclidine Scrn Ur Amphetamines Screen U Benzodiazepines Scrn Urine Cocaine Screen U Marijuana (THC) Screen Drugs of Abuse Note
--- NOTE | 2019-08-22 21:02 | Progress Note ---
Assessment and Plan Assessment and plan: --Severe hypokalemia; Replenish per protocol and monitor levels. Check magnesium. KCl 40 mEq IV, 20 mEq and IV fluids, monitor levels --Non-ST elevation IL; In the setting of acute renal failure could be NSTEMI 2 However patient has risk factors, coronary artery disease status post PCI in 2013 Serial cardiac enzymes, heparin drip, antiplatelets, beta-blockers echocardiogram, cardiology evaluation noted and appreciated --Coronary artery disease status post PCI --ICD in place; monitor, cardiology following --Acute kidney injury; vasomotor nephropathy Worsening renal function, nephrology following --Metabolic acidosis:acute kidney injury,mgt per neurology --Rhabdomyolysis; rigorous IV hydration Monitor renal function, input output Hold statin, nephrology following --Dyslipidemia; hold statin in view of rhabdo/transaminitis --Transaminitis; unknown etiology Hepatitis panel negative, follow abdominal ultrasound CT abdomen, no acute abnormalities, biliary sludge, no cholecystitis GI consulted --Type 2 diabetes mellitus; Accu-Chek sliding scale coverage ADA diet, insulin as needed --Hypertension; moderate control Continue current antihypertensives and PRN medications --DVT prophylaxis; heparin renal dose --Full CODE STATUS Patient is critically ill with multiorgan involvement Will Monitor closely and adjust management as needed Disposition; follow consultants evaluation and recommendations Follow clinically, discharge when medically stable History Interval history: Patient seen and examined patient's chart, overnight events laboratory data, imaging studies and medications reviewed Patient is lethargic, but responds to verbal commands In mild distress,Vital signs reviewed Hospitalist Physical - Constitutional Vitals: Temp Pulse Resp BP Pulse Ox 97.8 F 63 18 122/53 91 08/22/19 11:08 08/22/19 11:08 08/22/19 11:08 08/22/19 11:08 08/22/19 11:08 General appearance: Present: mild distress, well-nourished - EENT Eyes: Present: PERRL, EOM intact - Neck Neck: Present: supple, normal ROM - Respiratory Respiratory effort: normal Respiratory: bilateral: diminished, rhonchi, negative: rales, wheezing - Cardiovascular Rhythm: regular Heart Sounds: Present: S1 & S2 - Extremities Extremities: no ischemia Extremity abnormal: edema - Abdominal General gastrointestinal: soft, non-tender, non-distended, normal bowel sounds - Integumentary Integumentary: Present: clear, warm - Psychiatric Psychiatric: other (Minimally communicative) - Neurologic Neurologic: other (Lethargy) Results - Labs CBC & Chem 7: 08/22/19 04:34 08/22/19 04:34 Labs: Laboratory Last Values WBC 9.0 K/mm3 (4.5-11.0) 08/20/19 06:11 RBC 3.94 M/mm3 (3.65-5.03) 08/20/19 06:11 Hgb 11.4 gm/dl (10.1-14.3) 08/22/19 04:34 Hct 34.6 % (30.3-42.9) 08/22/19 04:34 MCV 93 fl (79-97) 08/20/19 06:11 MCH 31 pg (28-32) 08/20/19 06:11 MCHC 34 % (30-34) 08/20/19 06:11 RDW 14.1 % (13.2-15.2) 08/20/19 06:11 Plt Count 128 K/mm3 (140-440) L 08/22/19 04:34 Lymph % (Auto) 14.2 % (13.4-35.0) 08/20/19 06:11 [place] % (Auto) 7.4 % (0.0-7.3) H 08/20/19 06:11 Eos % (Auto) 0.3 % (0.0-4.3) 08/20/19 06:11 Baso % (Auto) 0.2 % (0.0-1.8) 08/20/19 06:11 Lymph # 1.3 K/mm3 (1.2-5.4) 08/20/19 06:11 [place] # 0.7 K/mm3 (0.0-0.8) 08/20/19 06:11 Eos # 0.0 K/mm3 (0.0-0.4) 08/20/19 06:11 Baso # 0.0 K/mm3 (0.0-0.1) 08/20/19 06:11 Seg Neutrophils % 77.9 % (40.0-70.0) H 08/20/19 06:11 Seg Neutrophils # 7.0 K/mm3 (1.8-7.7) 08/20/19 06:11 PT 19.2 Sec. (12.2-14.9) H 08/22/19 04:34 INR 1.59 (0.87-1.13) H 08/22/19 04:34 APTT 59.6 Sec. (24.2-36.6) H 08/20/19 23:09 Heparin Anti-Xa Level 0.18 U.I./ml (0.3-0.7) L 08/22/19 15:01 Sodium 137 mmol/L (137-145) 08/22/19 04:34 Potassium 4.2 mmol/L (3.6-5.0) 08/22/19 04:34 Chloride 107.4 mmol/L (98-107) H 08/22/19 04:34 Carbon Dioxide 8 mmol/L (22-30) L* D 08/22/19 04:34 Anion Gap 26 mmol/L 08/22/19 04:34 BUN 69 mg/dL (7-17) H 08/22/19 04:34 Creatinine 6.1 mg/dL (0.7-1.2) H 08/22/19 04:34 Estimated GFR 8 ml/min 08/22/19 04:34 BUN/Creatinine Ratio 11 % 08/22/19 04:34 Glucose 138 mg/dL (65-100) H 08/22/19 04:34 POC Glucose 129 (70-105) H 08/22/19 16:43 Lactic Acid 1.70 mmol/L (0.7-2.0) 08/20/19 23:09 Calcium 7.6 mg/dL (8.4-10.2) L 08/22/19 04:34 Magnesium 2.00 mg/dL (1.7-2.3) 08/22/19 04:34 Total Bilirubin 0.30 mg/dL (0.1-1.2) 08/22/19 04:34 AST 544 units/L (5-40) H 08/22/19 04:34 ALT 189 units/L (7-56) H 08/22/19 04:34 Alkaline Phosphatase 62 units/L (35-129) 08/22/19 04:34 Ammonia 10.0 umol/L (25-60) L 08/22/19 11:43 Total Creatine Kinase 75317 units/L (30-135) H 08/22/19 11:43 CK-MB (CK-2) 73.0 ng/mL (0.0-4.0) H 08/21/19 05:35 CK-MB (CK-2) Rel Index 0.3 (0-4) 08/21/19 05:35 Troponin T 0.196 ng/mL (0.00-0.029) H* 08/21/19 05:35 Total Protein 5.9 g/dL (6.3-8.2) L 08/22/19 04:34 Albumin 2.6 g/dL (3.9-5) L 08/22/19 04:34 Albumin/Globulin Ratio 0.8 % 08/22/19 04:34 Triglycerides 125 mg/dL (2-149) 08/20/19 06:11 Cholesterol 89 mg/dL (50-199) 08/20/19 06:11 LDL Cholesterol Direct 45 mg/dL (50-130) L 08/20/19 06:11 HDL Cholesterol 25 mg/dL (40-59) L 08/20/19 06:11 Cholesterol/HDL Ratio 3.56 % 08/20/19 06:11 Urine Color Red (Yellow) 08/20/19 07:38 Urine Turbidity Cloudy (Clear) 08/20/19 07:38 Urine pH 5.0 (5.0-7.0) 08/20/19 07:38 Ur Specific [place] 1.013 (1.003-1.030) 08/20/19 07:38 Urine Protein 100 mg/dl mg/dL (Negative) 08/20/19 07:38 Urine Glucose (UA) Neg mg/dL (Negative) 08/20/19 07:38 Urine Ketones Neg mg/dL (Negative) 08/20/19 07:38 Urine Blood Lg (Negative) 08/20/19 07:38 Urine Nitrite Neg (Negative) 08/20/19 07:38 Urine Bilirubin Neg (Negative) 08/20/19 07:38 Urine Urobilinogen < 2.0 mg/dL (<2.0) 08/20/19 07:38 Ur Leukocyte Esterase Sm (Negative) 08/20/19 07:38 Urine WBC (Auto) 25.0 /HPF (0.0-6.0) H 08/20/19 07:38 Urine RBC (Auto) 4.0 /HPF (0.0-6.0) 08/20/19 07:38 U Epithel Cells (Auto) 3.0 /HPF (0-13.0) 08/20/19 07:38 Urine Bacteria (Auto) 1+ /HPF (Negative) 08/20/19 07:38 Amorphous Crystals Few 08/20/19 07:38 Urine Creatinine 102.1 mg/dL (0.1-20.0) H 08/21/19 20:00 Protein/Creatinin Ratio 1.72 08/21/19 20:00 Urine Sodium 44 mmol/L 08/21/19 10:06 Urine Potassium 23.15 mmol/L 08/21/19 10:06 Urine Chloride 22.8 mmolL (110-250) L 08/21/19 10:06 Urine Total Protein 176 mg/dL (5-11.8) H 08/21/19 20:00 Urine Opiates Screen Presumptive positive 08/21/19 20:00 Urine Methadone Screen Presumptive negative 08/21/19 20:00 Acetaminophen < 5.0 ug/mL (10.0-30.0) L 08/22/19 04:34 Ur Barbiturates Screen Presumptive negative 08/21/19 20:00 Ur Phencyclidine Scrn Presumptive negative 08/21/19 20:00 Ur Amphetamines Screen Presumptive negative 08/21/19 20:00 U Benzodiazepines Scrn Presumptive positive 08/21/19 20:00 Urine Cocaine Screen Presumptive negative 08/21/19 20:00 U Marijuana (THC) Screen Presumptive negative 08/21/19 20:00 Drugs of Abuse Note Disclamer 08/21/19 20:00 Hepatitis A IgM Ab Non-reactive (NonReactive) 08/20/19 23:09 Hep Bs Antigen Non-reactive (Negative) 08/20/19 23:09 Hep B Core IgM Ab Non-reactive (NonReactive) 08/20/19 23:09 Hepatitis C Antibody Non-reactive (NonReactive) 08/20/19 23:09 Active Medications - Current Medications Current Medications: Generic Name Dose Route Start Last Admin Trade Name Freq PRN Reason Stop Dose Admin Alprazolam 0.5 mg 08/20/19 10:00 08/22/19 09:54 Xanax PO 0.5 mg BID SHARON Administration Aspirin 325 mg 08/20/19 10:00 08/22/19 09:56 Ecotrin PO 325 mg QDAY SHARON Administration Carvedilol 3.125 mg 08/20/19 22:00 08/22/19 09:55 Coreg PO 3.125 mg BID SHARON Administration Clopidogrel Bisulfate 75 mg 08/20/19 10:00 08/22/19 09:54 Plavix PO 75 mg QDAY SHARON Administration Famotidine 20 mg 08/20/19 22:00 08/22/19 09:56 Pepcid IV 20 mg DAILY SHARON Administration Glimepiride 2 mg 08/20/19 10:00 08/22/19 09:55 Amaryl PO 2 mg QDDIAB SHARON Administration Hydralazine HCl 10 mg 08/20/19 09:00 Apresoline IV Q4HR PRN Hypertension Cefepime HCl 2 gm in 100 mls @ 200 mls/hr 08/22/19 08:00 08/22/19 12:13 Cefepime/Ns 2 Gm/100 Ml IV Infused Q24H SHARON Infusion Protocol Sodium Bicarbonate 150 meq/ 1,150 mls @ 100 mls/hr 08/22/19 09:00 08/22/19 10:25 Dextrose IV 100 mls/hr DIRECT SHARON Administration Insulin Human Lispro 0 unit 08/20/19 22:00 08/22/19 18:22 Humalog SUB-Q Not Given ACHS SHARON Protocol Levetiracetam 1,500 mg 08/20/19 22:00 08/22/19 09:54 Keppra PO 1,500 mg BID SHARON Administration Nitroglycerin 0.4 mg 08/20/19 19:00 Nitrostat SL .Q5MIN PRN Chest Pain Oxycodone/Acetaminophen 1 tab 08/21/19 20:37 08/22/19 03:57 Percocet 5/325 PO 1 tab Q6H PRN Administration Pain, Moderate (4-6) Pantoprazole Sodium 40 mg 08/20/19 10:00 08/22/19 09:56 Protonix PO 40 mg QDAY SHARON Administration Nutrition/Malnutrition Assess - Dietary Evaluation Nutrition/Malnutrition Findings: Nutrition Notes Start: 08/22/19 10:11 Freq: Status: Active Protocol: Document 08/22/19 10:11 CW (Rec: 08/22/19 10:29 CW [id number]) Co-Sign 08/22/19 10:11 LP Nutrition Notes 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 Jp score of 16. Pt currently unable to communicate D/T AMS related to percocet. Nutritional hx provided per family. Daughter states that UBW is 162lbs. Daughter reports that pt was eating well at home prior to sunday and then became lethargic. D/T AMS daughter feels that pt will be able to consume more via liquid methods; hence ONS order placed. 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 No Is Patient Ambulatory and/or Out of Bed No REE-([facility]-confined to bed) [phone] Calculation Used for Recommendations [facility] Additional Notes protein needs: 61 - 77g (0.8 - 1 g/kgBW) (JULIANO w/ no dialysis) fluid needs: 1 ml/kcal Nutrition Intervention Change Diet Order: continue cardiac diet Add Supplement/Snack (indicate name/kcal Nepro daily /protein ) Provides kCal: 425 Provides Protein (gm) 20 Goal #1 Meet at least 75% of kcal/ protein needs Anticipated Discharge Needs: Renal Consistent CHO diet Follow-Up By: 08/25/19 Additional Comments F/U for PO/ONS intake
[2019-08-23 07:06] LABS: INR 1.32 (0.87-1.13)
[2019-08-23 07:22] LABS: Alanine Aminotransferase 194 units/L (7-56); Albumin 2.5 g/dL (3.9-5)
[2019-08-23 07:43] LABS: Bilirubin,Direct < 0.2 mg/dL (0-0.2)
[2019-08-23] MEDS: INSULIN LISPRO 100 UNIT/ML SUB-Q SCH ×4 (08:16→23:04)
[2019-08-23] MEDS: GLIMEPIRIDE 2 MG TAB PO SCH (08:32)
[2019-08-23] MEDS: levETIRAcetam 500 MG TAB PO SCH (09:06)
[2019-08-23] MEDS: oxyCODONE /ACETAMINOPHEN 5-325MG TAB PO PRN ×2 (09:06→21:30)
[2019-08-23] MEDS: PANTOPRAZOLE 40 MG TAB PO SCH (09:06)
[2019-08-23] MEDS: CLOPIDOGREL 75 MG TAB PO SCH (09:06)
[2019-08-23] MEDS: ALPRAZolam 0.5 MG TAB PO SCH ×2 (09:07→21:29)
[2019-08-23] MEDS: ASPIRIN EC 325 MG TAB PO SCH (09:07)
[2019-08-23] MEDS: FAMOTIDINE 20 MG/2 ML INJ IV SCH (09:07)
[2019-08-23] MEDS: CEFEPIME/NS 2 GM/100 ML 2 GM/100 ML BAG IV SCH (09:08)
[2019-08-23] MEDS: carvediloL 3.125 MG TAB PO SCH ×2 (10:05→21:29)
--- NOTE | 2019-08-23 10:40 | Progress Note ---
Assessment and Plan - Patient Problems (1) Acute renal failure Current Visit: Yes Status: Acute Plan to address problem: Likely ATN in the setting of rhabdomysolysis. Continue with IVF hydration with bicarbonate gtt given level of acidosis this am . Avoid nephrotoxins, maintain MAP >mmHg. Agree with hold ARB at this time given renal failure. Renal US did not show any acute abnormalities. (2) Hypokalemia Current Visit: Yes Status: Acute Plan to address problem: Repleted per protocol. Improved at this time. (3) Hypertensive chronic kidney disease with stage 1 through stage 4 chronic kidney disease, or unspecified chronic kidney disease Current Visit: Yes Status: Acute Plan to address problem: Agree with holding her blood pressure medications at this time given her lower blood pressures. Will monitor off antihypertensives at this time. (4) Type 2 diabetes mellitus with diabetic chronic kidney disease Current Visit: Yes Status: Chronic Plan to address problem: DM management per primary attending. (5) Metabolic acidosis Current Visit: Yes Status: Acute Plan to address problem: Cont IVF to D5W/3 amps with NaHCO3 at 150 cc/hr. Will continue to monitor . Subjective Date of service: 08/23/19 Principal diagnosis: transaminitis Interval history: Pt awake, alert, in no acute respiratory distress Objective - Vital Signs Vital signs: Vital Signs - 12hr 08/23/19 08/23/19 08/23/19 00:54 01:00 04:34 Temperature 97.3 F L 97.3 F L Pulse Rate 70 70 70 Respiratory 20 20 Rate Blood Pressure 104/46 127/53 O2 Sat by Pulse 98 99 Oximetry 08/23/19 08:25 Temperature 97.0 F L Pulse Rate 70 Respiratory 20 Rate Blood Pressure 137/55 O2 Sat by Pulse 99 Oximetry - General Appearance General appearance: well-developed, well-nourished, appears stated age EENT: ATNC, PERRL, mucous membranes moist Neck: no JVD Respiratory: Present: Clear to Ascultation Cardiology: regular, S1S2 Gastrointestinal: normoactive bowel sounds Integumentary: no rash, other (no edema ) Neurologic: no focal deficit, alert and oriented x3, strength 5/5, CN 3-12 intact Psychiatric: mood/affect appropriate, cooperative - Lab 08/22/19 04:34 08/22/19 04:34 Most recent lab results Calcium 7.6 mg/dL (8.4-10.2) L 08/22/19 04:34 Magnesium 2.00 mg/dL (1.7-2.3) 08/22/19 04:34 Urine Creatinine 102.1 mg/dL (0.1-20.0) H 08/21/19 20:00 Urine Sodium 44 mmol/L 08/21/19 10:06 Urine Total Protein 176 mg/dL (5-11.8) H 08/21/19 20:00 Medications & Allergies - Medications Allergies/Adverse Reactions: Allergies No Known Allergies Allergy (Verified 11/29/13 10:39) Home Medications: Home Medications Medication Instructions Recorded Confirmed Last Taken Type ALPRAZolam [Xanax TAB] 0.5 mg PO BID 03/21/13 08/20/19 01/29/14 History Amlodipine Bes/Olmesartan Med 2.5 mg PO QDAY 03/21/13 08/20/19 1 Day Ago History [[place]khar 10-20 mg] ~08/19/19 Glimepiride [Amaryl] 2 mg PO QAM 03/21/13 08/20/19 1 Day Ago History ~08/19/19 2 mg Losartan [Cozaar] 25 mg PO QDAY 03/21/13 08/20/19 1 Day Ago History ~08/19/19 25 mg Atorvastatin [Lipitor] 40 mg PO QHS 11/13/13 08/20/19 01/29/14 History Oxycodone HCl/Acetaminophen 1 each PO Q6HR PRN #20 tablet 11/29/13 08/20/19 01/30/14 Rx [Percocet 7.5/325 mg] Aspirin EC [Ecotrin] 325 mg PO QDAY #30 tablet 02/08/14 08/20/19 Unknown Rx Clopidogrel [Plavix] 75 mg PO QDAY #30 tablet 02/08/14 08/20/19 Unknown Rx Pantoprazole [Protonix TAB] 40 mg PO QDAY #30 tablet 02/08/14 08/20/19 1 Day Ago Rx ~08/19/19 40 mg carvediloL [Coreg] 3.125 mg PO BID #60 tablet 02/08/14 08/20/19 Unknown Rx levETIRAcetam [Keppra TAB] 1,500 mg PO BID 08/20/19 08/20/19 Unknown History Citalopram [celeXA] 40 mg PO QDAY 08/22/19 08/22/19 Unknown History Active Medications: Generic Name Dose Route Start Last Admin Trade Name Tooq PRN Reason Stop Dose Admin Alprazolam 0.5 mg 08/20/19 10:00 08/23/19 09:07 Xanax PO 0.5 mg BID SHARON Administration Aspirin 325 mg 08/20/19 10:00 08/23/19 09:07 Ecotrin PO 325 mg QDAY SHARON Administration Carvedilol 3.125 mg 08/20/19 22:00 08/22/19 22:24 Coreg PO 3.125 mg BID SHARON Administration Clopidogrel Bisulfate 75 mg 08/20/19 10:00 08/23/19 09:06 Plavix PO 75 mg QDAY SHARON Administration Famotidine 20 mg 08/20/19 22:00 08/23/19 09:07 Pepcid IV 20 mg DAILY SHARON Administration Glimepiride 2 mg 08/20/19 10:00 08/23/19 08:32 Amaryl PO 2 mg QDDIAB SHARON Administration Hydralazine HCl 10 mg 08/20/19 09:00 Apresoline IV Q4HR PRN Hypertension Cefepime HCl 2 gm in 100 mls @ 200 mls/hr 08/22/19 08:00 08/23/19 09:08 Cefepime/Ns 2 Gm/100 Ml IV 100 mls/hr Q24H SHARON Administration Protocol Sodium Bicarbonate 150 meq/ 1,150 mls @ 150 mls/hr 08/22/19 09:00 08/22/19 23:02 Dextrose IV 100 mls/hr DIRECT SHARON Administration Insulin Human Lispro 0 unit 08/20/19 22:00 08/23/19 08:16 Humalog SUB-Q 3 unit ACHS SHARON Administration Protocol Levetiracetam 1,500 mg 08/20/19 22:00 08/23/19 09:06 Keppra PO 1,500 mg BID SHARON Administration Nitroglycerin 0.4 mg 08/20/19 19:00 Nitrostat SL .Q5MIN PRN Chest Pain Oxycodone/Acetaminophen 1 tab 08/21/19 20:37 08/23/19 09:06 Percocet 5/325 PO 1 tab Q6H PRN Administration Pain, Moderate (4-6) Pantoprazole Sodium 40 mg 08/20/19 10:00 08/23/19 09:06 Protonix PO 40 mg QDAY SHARON Administration
[2019-08-23] MEDS ORDERED: LIPASE 10,500/PROTEASE 25,000/AMYLASE 43,750 (UNITS) DR CAP FEEDTUBE PRN ×2 (12:37→14:47)
[2019-08-23] MEDS ORDERED: SODIUM BICARBONATE 325 MG TAB FEEDTUBE PRN ×2 (12:37→14:47)
[2019-08-23] MEDS ORDERED: SIMPLE SYRUP 15 ML FEEDTUBE PRN ×4 (12:37→14:47)
--- NOTE | 2019-08-23 12:39 | Progress Note ---
Assessment and Plan Assessment and plan: --Metabolic encephalopathy; multifactorial Uremia, transaminitis, acidosis, advanced age Patient is lethargic, not taking any oral medications or diet Will ask for speech and swallow evaluation, Dobbhoff placement For medications and tube feeding Daughter at the bedside agreed with the above plan Monia levels normal --Transaminitis; unknown etiology Hepatitis panel negative, follow abdominal ultrasound biliary sludge, no cholecystitis, dilated common bile duct GI following, unable to do MRI due to ICD Management per GI --Rhabdomyolysis; CK trending down rigorous IV hydration Monitor renal function, input output, Hold statin, nephrology following --Acute kidney injury; vasomotor nephropathy Worsening renal function, nephrology following --Metabolic acidosis:acute kidney injury,mgt per neurology --Severe hypokalemia; corrected Closely monitor electrolytes --Non-ST elevation [place]; In the setting of acute renal failure could be NSTEMI 2 However patient has risk factors, coronary artery disease status post PCI in 2013 Serial cardiac enzymes, heparin drip, antiplatelets, beta-blockers echo cardiogram, Cardiology evaluated no cardiac work-up intended --Coronary artery disease status post PCI --ICD in place; monitor, cardiology evaluation if needed --Dyslipidemia; hold statin in view of rhabdo/transaminitis --Type 2 diabetes mellitus; Accu-Chek sliding scale coverage ADA diet, insulin as needed --History of seizure disorder; seizure precautions Continue Keppra --Hypertension; moderate control Continue current antihypertensives and PRN medications --DVT prophylaxis; heparin renal dose --Full CODE STATUS Patient is critically ill with multiorgan involvement Very poor prognosis, discussed with the daughter Plan of care reviewed with the daughter at the bedside Answered all questions Advance directives and CODE STATUS discussed with the patient's daughter They will discuss with the family members and inform us, full CODE STATUS now History Interval history: Patient seen and examined medical records reviewed Patient is lethargic today, not taking oral medications or diet In mild distress, Vital signs reviewed Hospitalist Physical - Constitutional Vitals: Temp Pulse Resp BP Pulse Ox 97.0 F L 70 20 137/55 99 08/23/19 08:25 08/23/19 08:25 08/23/19 08:25 08/23/19 08:25 08/23/19 08:25 General appearance: Present: mild distress, well-nourished, other (Lethargic) - EENT Eyes: Present: PERRL, EOM intact - Neck Neck: Present: supple, normal ROM - Respiratory Respiratory effort: normal Respiratory: bilateral: diminished, negative: rales, rhonchi, wheezing - Cardiovascular Rhythm: regular Heart Sounds: Present: S1 & S2 - Extremities Extremities: no ischemia Extremity abnormal: edema - Abdominal General gastrointestinal: soft, non-tender, non-distended, normal bowel sounds - Integumentary Integumentary: Present: clear, warm - Psychiatric Psychiatric: other (Lethargic) - Neurologic Neurologic: other (Sleepy and lethargic noncommunicative) Results - Labs CBC & Chem 7: 08/22/19 04:34 08/22/19 04:34 Labs: Laboratory Last Values WBC 9.0 K/mm3 (4.5-11.0) 08/20/19 06:11 RBC 3.94 M/mm3 (3.65-5.03) 08/20/19 06:11 Hgb 11.4 gm/dl (10.1-14.3) 08/22/19 04:34 Hct 34.6 % (30.3-42.9) 08/22/19 04:34 MCV 93 fl (79-97) 08/20/19 06:11 MCH 31 pg (28-32) 08/20/19 06:11 MCHC 34 % (30-34) 08/20/19 06:11 RDW 14.1 % (13.2-15.2) 08/20/19 06:11 Plt Count 128 K/mm3 (140-440) L 08/22/19 04:34 Lymph % (Auto) 14.2 % (13.4-35.0) 08/20/19 06:11 [place] % (Auto) 7.4 % (0.0-7.3) H 08/20/19 06:11 Eos % (Auto) 0.3 % (0.0-4.3) 08/20/19 06:11 Baso % (Auto) 0.2 % (0.0-1.8) 08/20/19 06:11 Lymph # 1.3 K/mm3 (1.2-5.4) 08/20/19 06:11 [place] # 0.7 K/mm3 (0.0-0.8) 08/20/19 06:11 Eos # 0.0 K/mm3 (0.0-0.4) 08/20/19 06:11 Baso # 0.0 K/mm3 (0.0-0.1) 08/20/19 06:11 Seg Neutrophils % 77.9 % (40.0-70.0) H 08/20/19 06:11 Seg Neutrophils # 7.0 K/mm3 (1.8-7.7) 08/20/19 06:11 PT 16.6 Sec. (12.2-14.9) H 08/23/19 06:08 INR 1.32 (0.87-1.13) H 08/23/19 06:08 APTT 59.6 Sec. (24.2-36.6) H 08/20/19 23:09 Heparin Anti-Xa Level 0.18 U.I./ml (0.3-0.7) L 08/22/19 15:01 Sodium 137 mmol/L (137-145) 08/22/19 04:34 Potassium 4.2 mmol/L (3.6-5.0) 08/22/19 04:34 Chloride 107.4 mmol/L (98-107) H 08/22/19 04:34 Carbon Dioxide 8 mmol/L (22-30) L* D 08/22/19 04:34 Anion Gap 26 mmol/L 08/22/19 04:34 BUN 69 mg/dL (7-17) H 08/22/19 04:34 Creatinine 6.1 mg/dL (0.7-1.2) H 08/22/19 04:34 Estimated GFR 8 ml/min 08/22/19 04:34 BUN/Creatinine Ratio 11 % 08/22/19 04:34 Glucose 138 mg/dL (65-100) H 08/22/19 04:34 POC Glucose 205 (70-105) H 08/23/19 08:36 Lactic Acid 1.70 mmol/L (0.7-2.0) 08/20/19 23:09 Calcium 7.6 mg/dL (8.4-10.2) L 08/22/19 04:34 Magnesium 2.00 mg/dL (1.7-2.3) 08/22/19 04:34 Total Bilirubin 0.20 mg/dL (0.1-1.2) 08/23/19 06:08 Direct Bilirubin < 0.2 mg/dL (0-0.2) 08/23/19 06:08 Indirect Bilirubin 0.0 mg/dL 08/23/19 06:08 AST 545 units/L (5-40) H 08/23/19 06:08 ALT 194 units/L (7-56) H 08/23/19 06:08 Alkaline Phosphatase 58 units/L (35-129) 08/23/19 06:08 Ammonia 10.0 umol/L (25-60) L 08/22/19 11:43 Total Creatine Kinase 72035 units/L (30-135) H 08/22/19 11:43 CK-MB (CK-2) 73.0 ng/mL (0.0-4.0) H 08/21/19 05:35 CK-MB (CK-2) Rel Index 0.3 (0-4) 08/21/19 05:35 Troponin T 0.196 ng/mL (0.00-0.029) H* 08/21/19 05:35 Total Protein 4.5 g/dL (6.3-8.2) L D 08/23/19 06:08 Albumin 2.5 g/dL (3.9-5) L 08/23/19 06:08 Albumin/Globulin Ratio 1.3 % 08/23/19 06:08 Triglycerides 125 mg/dL (2-149) 08/20/19 06:11 Cholesterol 89 mg/dL (50-199) 08/20/19 06:11 LDL Cholesterol Direct 45 mg/dL (50-130) L 08/20/19 06:11 HDL Cholesterol 25 mg/dL (40-59) L 08/20/19 06:11 Cholesterol/HDL Ratio 3.56 % 08/20/19 06:11 Urine Color Red (Yellow) 08/20/19 07:38 Urine Turbidity Cloudy (Clear) 08/20/19 07:38 Urine pH 5.0 (5.0-7.0) 08/20/19 07:38 Ur Specific [place] 1.013 (1.003-1.030) 08/20/19 07:38 Urine Protein 100 mg/dl mg/dL (Negative) 08/20/19 07:38 Urine Glucose (UA) Neg mg/dL (Negative) 08/20/19 07:38 Urine Ketones Neg mg/dL (Negative) 08/20/19 07:38 Urine Blood Lg (Negative) 08/20/19 07:38 Urine Nitrite Neg (Negative) 08/20/19 07:38 Urine Bilirubin Neg (Negative) 08/20/19 07:38 Urine Urobilinogen < 2.0 mg/dL (<2.0) 08/20/19 07:38 Ur Leukocyte Esterase Sm (Negative) 08/20/19 07:38 Urine WBC (Auto) 25.0 /HPF (0.0-6.0) H 08/20/19 07:38 Urine RBC (Auto) 4.0 /HPF (0.0-6.0) 08/20/19 07:38 U Epithel Cells (Auto) 3.0 /HPF (0-13.0) 08/20/19 07:38 Urine Bacteria (Auto) 1+ /HPF (Negative) 08/20/19 07:38 Amorphous Crystals Few 08/20/19 07:38 Urine Creatinine 102.1 mg/dL (0.1-20.0) H 08/21/19 20:00 Protein/Creatinin Ratio 1.72 08/21/19 20:00 Urine Sodium 44 mmol/L 08/21/19 10:06 Urine Potassium 23.15 mmol/L 08/21/19 10:06 Urine Chloride 22.8 mmolL (110-250) L 08/21/19 10:06 Urine Total Protein 176 mg/dL (5-11.8) H 08/21/19 20:00 Urine Opiates Screen Presumptive positive 08/21/19 20:00 Urine Methadone Screen Presumptive negative 08/21/19 20:00 Acetaminophen < 5.0 ug/mL (10.0-30.0) L 08/22/19 04:34 Ur Barbiturates Screen Presumptive negative 08/21/19 20:00 Ur Phencyclidine Scrn Presumptive negative 08/21/19 20:00 Ur Amphetamines Screen Presumptive negative 08/21/19 20:00 U Benzodiazepines Scrn Presumptive positive 08/21/19 20:00 Urine Cocaine Screen Presumptive negative 08/21/19 20:00 U Marijuana (THC) Screen Presumptive negative 08/21/19 20:00 Drugs of Abuse Note Disclamer 08/21/19 20:00 Hepatitis A IgM Ab Non-reactive (NonReactive) 08/20/19 23:09 Hep Bs Antigen Non-reactive (Negative) 08/20/19 23:09 Hep B Core IgM Ab Non-reactive (NonReactive) 08/20/19 23:09 Hepatitis C Antibody Non-reactive (NonReactive) 08/20/19 23:09 Active Medications - Current Medications Current Medications: Generic Name Dose Route Start Last Admin Trade Name Freq PRN Reason Stop Dose Admin Alprazolam 0.5 mg 08/20/19 10:00 08/23/19 09:07 Xanax PO 0.5 mg BID SHARON Administration Lipase/Protease/Amylase 1 each 08/23/19 12:[address] 10,500 Unit FEEDTUBE PRN PRN For Clogged Feeding Tube Aspirin 325 mg 08/20/19 10:00 08/23/19 09:07 Ecotrin PO 325 mg QDAY SHARON Administration Carvedilol 3.125 mg 08/20/19 22:00 08/22/19 22:24 Coreg PO 3.125 mg BID SHARON Administration Clopidogrel Bisulfate 75 mg 08/20/19 10:00 08/23/19 09:06 Plavix PO 75 mg QDAY SHARON Administration Famotidine 20 mg 08/20/19 22:00 08/23/19 09:07 Pepcid IV 20 mg DAILY SHARON Administration Glimepiride 2 mg 08/20/19 10:00 08/23/19 08:32 Amaryl PO 2 mg QDDIAB SHARON Administration Hydralazine HCl 10 mg 08/20/19 09:00 Apresoline IV Q4HR PRN Hypertension Cefepime HCl 2 gm in 100 mls @ 200 mls/hr 08/22/19 08:00 08/23/19 09:08 Cefepime/Ns 2 Gm/100 Ml IV 100 mls/hr Q24H SHARON Administration Protocol Sodium Bicarbonate 150 meq/ 1,150 mls @ 150 mls/hr 08/22/19 09:00 08/22/19 23:02 Dextrose IV 100 mls/hr DIRECT SHARON Administration Insulin Human Lispro 0 unit 08/20/19 22:00 08/23/19 08:16 Humalog SUB-Q 3 unit ACHS SHARON Administration Protocol Levetiracetam 1,500 mg 08/20/19 22:00 08/23/19 09:06 Keppra PO 1,500 mg BID SHARON Administration Nitroglycerin 0.4 mg 08/20/19 19:00 Nitrostat SL .Q5MIN PRN Chest Pain Oxycodone/Acetaminophen 1 tab 08/21/19 20:37 08/23/19 09:06 Percocet 5/325 PO 1 tab Q6H PRN Administration Pain, Moderate (4-6) Pantoprazole Sodium 40 mg 08/20/19 10:00 08/23/19 09:06 Protonix PO 40 mg QDAY SHARON Administration Simple Syrup 15 ml 08/23/19 12:37 Simple Syrup FEEDTUBE PRN PRN Hypoglycemia Simple Syrup 30 ml 08/23/19 12:37 Simple Syrup FEEDTUBE PRN PRN Hypoglycemia Sodium Bicarbonate 325 mg 08/23/19 12:37 Sodium Bicarbonate FEEDTUBE PRN PRN For Clogged Feeding Tube Nutrition/Malnutrition Assess - Dietary Evaluation Nutrition/Malnutrition Findings: Nutrition Notes Start: 08/22/19 10:11 Freq: Status: Active Protocol: Document 08/22/19 10:11 CW (Rec: 08/22/19 10:29 CW [id number]) Co-Sign 08/22/19 10:11 LP Nutrition Notes 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 Jp score of 16. Pt currently unable to communicate D/T AMS related to percocet. Nutritional hx provided per family. Daughter states that UBW is 162lbs. Daughter reports that pt was eating well at home prior to sunday and then became lethargic. D/T AMS daughter feels that pt will be able to consume more via liquid methods; hence ONS order placed. 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 No Is Patient Ambulatory and/or Out of Bed No REE-([facility]-confined to bed) 1454.388 Calculation Used for Recommendations [facility] Additional Notes protein needs: 61 - 77g (0.8 - 1 g/kgBW) (JULIANO w/ no dialysis) fluid needs: 1 ml/kcal Nutrition Intervention Change Diet Order: continue cardiac diet Add Supplement/Snack (indicate name/kcal Nepro daily /protein ) Provides kCal: 425 Provides Protein (gm) 20 Goal #1 Meet at least 75% of kcal/ protein needs Anticipated Discharge Needs: Renal Consistent CHO diet Follow-Up By: 08/25/19 Additional Comments F/U for PO/ONS intake
[2019-08-23] MEDS: SODIUM BICARBONATE 150 MEQ in DEXTROSE 5% IN WATER 1,000 ML IV SCH (12:55)
--- NOTE | 2019-08-23 15:50 | XRay Report ---
CHEST 1 VIEW INDICATION / CLINICAL INFORMATION: Tube placement. COMPARISON: 08/20/2019 FINDINGS: SUPPORT DEVICES: Feeding tube has been placed. The tip is coiled within the esophagus with the tip di rected cephalad and probably within the pharynx. HEART / MEDIASTINUM: No significant abnormality. LUNGS / PLEURA: Markedly elevated right hemidiaphragm with right basilar parenchymal disease probably representing atelectasis. No pneumothorax. ADDITIONAL FINDINGS: No significant additional findings. IMPRESSION: 1. Abnormal positioning of the feeding tube. The tube will need to be completely removed and repositi oned. 2. The patient's nurse was notified by telephone at 1445 hours (CHEMICAL TECHNICIAN). Signer Name: Alejandra Alvarenga MD Signed: 08/23/2019 3:46 PM Workstation Name: [email or web address]
--- NOTE | 2019-08-23 17:39 | XRay Report ---
ABDOMEN 1 VIEW 5:18 PM INDICATION / CLINICAL INFORMATION: tube placement. COMPARISON: 3:25 PM FINDINGS: TUBES / LINES: Weighted feeding tube has been repositioned with the tip now in the proximal stomach. BOWEL GAS PATTERN: No significant abnormality. FREE AIR / EXTRALUMINAL GAS: None seen. ADDITIONAL FINDINGS: No significant additional findings. IMPRESSION: 1. Weighted feeding tube in the proximal stomach. Signer Name: Taylor Loza MD Signed: 08/23/2019 5:34 PM Workstation Name: [id number]
--- NOTE | 2019-08-23 19:01 | Gastroenterology Progress Note ---
Assessment and Plan Assessment and Plan 1.Transaminitis -plt WNL on admission now 128 -INR 1.59 -LFT's slowly improving -acute hepatitis panel negative -abd CT showed sludge in gallbladder with no acute cholecystitis or biliary ductal dilatation; liver normal -abd U/S showed sludge vs tiny stones in gallbladder and CBC dilated to 10.9 mm but no obstruction lesion seen -MR/MRCP unable to be done due to AICD -etiology-likely 2/2 rhabdomyolysis vs other -avoid hepatotoxic agents -continue to trend labs and supportive care, now improving -further recommendations to follow 2.Acute kidney failure 3.severe hypokalemia 4.NSTEMI 5.CAD 6.cardiomyopathy (s/p ICD; resolving; EF 55%) 7.metabolic acidosis 8.DM 9.dyslipidemia 10.HTN Subjective Date of service: 08/23/19 Principal diagnosis: transaminitis Interval history: - no GI complaints overnight Objective - Constitutional Vitals: Temp Pulse Resp BP Pulse Ox 97.9 F 71 20 153/72 98 08/23/19 16:56 08/23/19 16:56 08/23/19 16:56 08/23/19 16:56 08/23/19 16:56 General appearance: no acute distress - EENT Eyes: PERRL - Respiratory Respiratory: bilateral: CTA - Cardiovascular Rhythm: regular Heart Sounds: Present: S1 & S2 - Gastrointestinal General gastrointestinal: Present: soft, non-tender, non-distended - Labs CBC & Chem 7: 08/22/19 04:34 08/22/19 04:34 Labs: Laboratory Results - last 24 hr 08/23/19 08/23/19 08/23/19 01:07 06:08 06:08 PT 16.6 H INR 1.32 H POC Glucose 194 H Total Bilirubin 0.20 Direct Bilirubin < 0.2 Indirect Bilirubin 0.0 AST 545 H ALT 194 H Alkaline Phosphatase 58 Total Protein 4.5 L D Albumin 2.5 L Albumin/Globulin Ratio 1.3 08/23/19 08/23/19 08/23/19 08:36 12:47 17:07 PT INR POC Glucose 205 H 198 H 167 H Total Bilirubin Direct Bilirubin Indirect Bilirubin AST ALT Alkaline Phosphatase Total Protein Albumin Albumin/Globulin Ratio
[2019-08-23] MEDS: levETIRAcetam 500 MG/5 ML ORAL LIQD FEEDTUBE SCH (21:28)
[2019-08-24 06:18] LABS: Hematocrit 32.4 % (30.3-42.9)
[2019-08-24 06:33] LABS: Albumin 2.5 g/dL (3.9-5); Calcium 7.4 mg/dL (8.4-10.2)
--- NOTE | 2019-08-24 08:57 | Progress Note ---
Assessment and Plan - Patient Problems (1) Acute renal failure Current Visit: Yes Status: Acute Plan to address problem: Likely ATN in the setting of rhabdomysolysis. Continue with IVF hydration with bicarbonate gtt given persistent metabolic acidosis Avoid nephrotoxins, maintain MAP >mmHg. Agree with hold ARB at this time given renal failure. Renal US did not show any acute abnormalities. (2) Hypokalemia Current Visit: Yes Status: Acute Plan to address problem: Repleted per protocol. (3) Hypertensive chronic kidney disease with stage 1 through stage 4 chronic kidney disease, or unspecified chronic kidney disease Current Visit: Yes Status: Acute Plan to address problem: Agree with holding her blood pressure medications at this time given her lower blood pressures. Will monitor off antihypertensives at this time. (4) Type 2 diabetes mellitus with diabetic chronic kidney disease Current Visit: Yes Status: Chronic Plan to address problem: DM management per primary attending. (5) Metabolic acidosis Current Visit: Yes Status: Acute Plan to address problem: Cont IVF to D5W/3 amps with NaHCO3 at 100cc/hr. Will continue to monitor . Subjective Date of service: 08/24/19 Principal diagnosis: transaminitis Interval history: Pt awake, alert, in no acute respiratory distress Objective - Vital Signs Vital signs: Vital Signs - 12hr 08/23/19 08/23/19 08/23/19 21:25 21:29 23:46 Temperature 97.9 F 97.5 F L Pulse Rate 69 70 70 Respiratory 18 20 Rate Blood Pressure 147/72 147/72 113/52 O2 Sat by Pulse 100 100 Oximetry 08/24/19 03:44 Temperature Pulse Rate 70 Respiratory 20 Rate Blood Pressure 139/55 O2 Sat by Pulse 99 Oximetry - General Appearance General appearance: well-developed, well-nourished, appears stated age EENT: ATNC, PERRL, mucous membranes moist Neck: no JVD Respiratory: Present: Clear to Ascultation Cardiology: regular, S1S2 Gastrointestinal: normoactive bowel sounds Integumentary: no rash, other (no edema ) Neurologic: no focal deficit, strength 5/5, CN 3-12 intact Psychiatric: mood/affect appropriate, cooperative - Lab 08/24/19 05:53 08/24/19 05:53 Most recent lab results Calcium 7.4 mg/dL (8.4-10.2) L 08/24/19 05:53 Magnesium 2.00 mg/dL (1.7-2.3) 08/24/19 05:53 Urine Creatinine 102.1 mg/dL (0.1-20.0) H 08/21/19 20:00 Urine Sodium 44 mmol/L 08/21/19 10:06 Urine Total Protein 176 mg/dL (5-11.8) H 08/21/19 20:00 Medications & Allergies - Medications Allergies/Adverse Reactions: Allergies No Known Allergies Allergy (Verified 11/29/13 10:39) Home Medications: Home Medications Medication Instructions Recorded Confirmed Last Taken Type ALPRAZolam [Xanax TAB] 0.5 mg PO BID 03/21/13 08/20/19 01/29/14 History Amlodipine Bes/Olmesartan Med 2.5 mg PO QDAY 03/21/13 08/20/19 1 Day Ago History [Shekhar 10-20 mg] ~08/19/19 Glimepiride [Amaryl] 2 mg PO QAM 03/21/13 08/20/19 1 Day Ago History ~08/19/19 2 mg Losartan [Cozaar] 25 mg PO QDAY 03/21/13 08/20/19 1 Day Ago History ~08/19/19 25 mg Atorvastatin [Lipitor] 40 mg PO QHS 11/13/13 08/20/19 01/29/14 History Oxycodone HCl/Acetaminophen 1 each PO Q6HR PRN #20 tablet 11/29/13 08/20/19 01/30/14 Rx [Percocet 7.5/325 mg] Aspirin EC [Ecotrin] 325 mg PO QDAY #30 tablet 02/08/14 08/20/19 Unknown Rx Clopidogrel [Plavix] 75 mg PO QDAY #30 tablet 02/08/14 08/20/19 Unknown Rx Pantoprazole [Protonix TAB] 40 mg PO QDAY #30 tablet 02/08/14 08/20/19 1 Day Ago Rx ~08/19/19 40 mg carvediloL [Coreg] 3.125 mg PO BID #60 tablet 02/08/14 08/20/19 Unknown Rx levETIRAcetam [Keppra TAB] 1,500 mg PO BID 08/20/19 08/20/19 Unknown History Citalopram [celeXA] 40 mg PO QDAY 08/22/19 08/22/19 Unknown History Active Medications: Generic Name Dose Route Start Last Admin Trade Name Freq PRN Reason Stop Dose Admin Alprazolam 0.5 mg 08/20/19 10:00 08/23/19 21:29 Xanax PO 0.5 mg BID SHARON Administration Lipase/Protease/Amylase 1 each 08/23/19 14:47 Pancreaze 10,500 Unit FEEDTUBE PRN PRN For Clogged Feeding Tube Aspirin 325 mg 08/20/19 10:00 08/23/19 09:07 Ecotrin PO 325 mg QDAY SHARON Administration Carvedilol 3.125 mg 08/20/19 22:00 08/23/19 21:29 Coreg PO 3.125 mg BID SHARON Administration Clopidogrel Bisulfate 75 mg 08/20/19 10:00 08/23/19 09:06 Plavix PO 75 mg QDAY SHARON Administration Famotidine 20 mg 08/20/19 22:00 08/23/19 09:07 Pepcid IV 20 mg DAILY SHARON Administration Glimepiride 2 mg 08/20/19 10:00 08/23/19 08:32 Amaryl PO 2 mg QDDIAB SHARON Administration Hydralazine HCl 10 mg 08/20/19 09:00 Apresoline IV Q4HR PRN Hypertension Cefepime HCl 2 gm in 100 mls @ 200 mls/hr 08/22/19 08:00 08/23/19 09:08 Cefepime/Ns 2 Gm/100 Ml IV 100 mls/hr Q24H SHARON Administration Protocol Sodium Bicarbonate 150 meq/ 1,150 mls @ 100 mls/hr 08/22/19 09:00 08/23/19 12:55 Dextrose IV 100 mls/hr DIRECT SHARON Administration Insulin Human Lispro 0 unit 08/20/19 22:00 08/23/19 23:04 Humalog SUB-Q 3 unit ACHS SHARON Administration Protocol Levetiracetam 1,500 mg 08/23/19 22:00 08/23/19 21:28 Keppra FEEDTUBE 1,500 mg BID SHARON Administration Nitroglycerin 0.4 mg 08/20/19 19:00 Nitrostat SL .Q5MIN PRN Chest Pain Oxycodone/Acetaminophen 1 tab 08/21/19 20:37 08/23/19 21:30 Percocet 5/325 PO 1 tab Q6H PRN Administration Pain, Moderate (4-6) Pantoprazole Sodium 40 mg 08/20/19 10:00 08/23/19 09:06 Protonix PO 40 mg QDAY SHARON Administration Simple Syrup 15 ml 08/23/19 14:47 Simple Syrup FEEDTUBE PRN PRN Hypoglycemia Simple Syrup 30 ml 08/23/19 14:47 Simple Syrup FEEDTUBE PRN PRN Hypoglycemia Sodium Bicarbonate 325 mg 08/23/19 14:47 Sodium Bicarbonate FEEDTUBE PRN PRN For Clogged Feeding Tube
[2019-08-24] MEDS ORDERED: POTASSIUM CHLORIDE 20 MEQ PACKET FEEDTUBE ONE (09:00)
[2019-08-24] MEDS: levETIRAcetam 500 MG/5 ML ORAL LIQD FEEDTUBE SCH ×2 (09:52→22:21)
[2019-08-24] MEDS: GLIMEPIRIDE 2 MG TAB PO SCH (09:55)
[2019-08-24] MEDS: ALPRAZolam 0.5 MG TAB PO SCH (09:55)
[2019-08-24] MEDS: FAMOTIDINE 20 MG/2 ML INJ IV SCH (09:55)
[2019-08-24] MEDS: ASPIRIN EC 325 MG TAB PO SCH (09:55)
[2019-08-24] MEDS: carvediloL 3.125 MG TAB PO SCH (09:55)
[2019-08-24] MEDS: PANTOPRAZOLE 40 MG TAB PO SCH (09:56)
[2019-08-24] MEDS: INSULIN LISPRO 100 UNIT/ML SUB-Q SCH ×4 (09:56→22:21)
[2019-08-24] MEDS: CLOPIDOGREL 75 MG TAB PO SCH (09:56)
[2019-08-24] MEDS: CEFEPIME/NS 2 GM/100 ML 2 GM/100 ML BAG IV SCH (09:59)
[2019-08-24] MEDS: SODIUM BICARBONATE 150 MEQ in DEXTROSE 5% IN WATER 1,000 ML IV SCH (15:09)
--- NOTE | 2019-08-24 15:34 | Gastroenterology Progress Note ---
Assessment and Plan Liver: increase LFT's probable due to Rhabdo - slowly improving labs but note of also labs showing slowly resolving Rhabdo - suspect w/ improved primary process LFT's will also improve - Rhabdo management per primary team - follow lft's - no changes, will follow for now Subjective Date of service: 08/24/19 Principal diagnosis: transaminitis Interval history: - no GI complaints overnight Objective - Constitutional Vitals: Temp Pulse Resp BP Pulse Ox 97.5 F L 70 20 132/53 95 08/23/19 23:46 08/24/19 10:10 08/24/19 03:44 08/24/19 09:55 08/24/19 10:10 General appearance: no acute distress - EENT Eyes: PERRL - Respiratory Respiratory: bilateral: CTA - Cardiovascular Rhythm: regular Heart Sounds: Present: S1 & S2 - Gastrointestinal General gastrointestinal: Present: soft, non-tender, non-distended - Labs CBC & Chem 7: 08/24/19 05:53 08/24/19 05:53 Labs: Laboratory Results - last 24 hr 08/23/19 08/23/19 08/24/19 17:07 22:35 05:53 Hgb 11.0 Hct 32.4 Plt Count 140 Sodium Potassium Chloride Carbon Dioxide Anion Gap BUN Creatinine Estimated GFR BUN/Creatinine Ratio Glucose POC Glucose 167 H 210 H Calcium Magnesium Total Bilirubin AST ALT Alkaline Phosphatase Total Creatine Kinase Total Protein Albumin Albumin/Globulin Ratio 08/24/19 08/24/19 05:53 12:52 Hgb Hct Plt Count Sodium 138 Potassium 3.4 L Chloride 101.3 Carbon Dioxide 16 L D Anion Gap 24 BUN 82 H Creatinine 7.4 H Estimated GFR 6 BUN/Creatinine Ratio 11 Glucose 225 H POC Glucose 292 H Calcium 7.4 L Magnesium 2.00 Total Bilirubin 0.30 AST 511 H ALT 218 H Alkaline Phosphatase 59 Total Creatine Kinase 09932 H Total Protein 4.9 L Albumin 2.5 L Albumin/Globulin Ratio 1.0
--- NOTE | 2019-08-24 17:38 | Progress Note ---
Assessment and Plan Assessment and plan: Patient has multiple medical problems involving multiple organs Metabolic encephalopathy secondary to uremia liver failure Dementia, rhabdomyolysis, metabolic acidosis Patient is critically ill, family aware Nephrology, GI cardiology evaluated the patient Medications optimized Remains critically ill --Metabolic encephalopathy; multifactorial Uremia, transaminitis, acidosis, advanced age Patient is lethargic, Dobbhoff in place For medications and tube feeding speech and swallow evaluation,. --Transaminitis; unknown etiology Hepatitis panel negative, follow abdominal ultrasound biliary sludge, no cholecystitis, dilated common bile duct GI following, unable to do MRI due to ICD Management per GI --Rhabdomyolysis; CK trending down from CK 20,089 -17,914 viigorous IV hydration,Monitor renal function, input output, Hold statin, nephrology following --Acute kidney injury; vasomotor nephropathy Worsening renal function, nephrology following --Metabolic acidosis:acute kidney injury,mgt per neurology --Severe hypokalemia; corrected Closely monitor electrolytes --Non-ST elevation KS; In the setting of acute renal failure could be NSTEMI 2 However patient has risk factors, coronary artery disease status post PCI in 2013 Serial cardiac enzymes, heparin drip, antiplatelets, beta-blockers echocardiogram, Cardiology evaluated no cardiac work-up intended --Coronary artery disease status post PCI --ICD in place; monitor, cardiology evaluation if needed --Dyslipidemia; hold statin in view of rhabdo/transaminitis --Type 2 diabetes mellitus; Accu-Chek sliding scale coverage ADA diet, insulin as needed --History of seizure disorder; seizure precautions Continue Keppra --Hypertension; moderate control Continue current antihypertensives and PRN medications --DVT prophylaxis; heparin renal dose --Full CODE STATUS Patient is critically ill with multiorgan involvement Very poor prognosis, discussed with the daughter Plan of care reviewed with the daughter at the bedside Answered all questions Advance directives and CODE STATUS discussed with the patient's daughter They will discuss with the family members and inform us, full CODE STATUS now History Interval history: Patient seen and examined at bedside this morning in her room Overnight events, nurses charting and other reports reviewed Patient is sleeping response to deep stimuli, patient's daughter at the bedside Receiving tube feeding, pending speech and swallow evaluation Vital signs reviewed Hospitalist Physical - Constitutional Vitals: Temp Pulse Resp BP Pulse Ox 97.5 F L 70 20 132/53 95 08/23/19 23:46 08/24/19 11:43 08/24/19 03:44 08/24/19 09:55 08/24/19 10:10 General appearance: Present: mild distress, well-nourished, other (Lethargic) - EENT Eyes: Present: PERRL, EOM intact. Absent: scleral icterus - Neck Neck: Present: supple, normal ROM - Respiratory Respiratory effort: normal Respiratory: bilateral: diminished, negative: rales, rhonchi, wheezing - Cardiovascular Rhythm: regular Heart Sounds: Present: S1 & S2 - Extremities Extremities: no ischemia Extremity abnormal: edema - Abdominal General gastrointestinal: soft, non-tender, non-distended, normal bowel sounds - Integumentary Integumentary: Present: clear, warm - Psychiatric Psychiatric: other (Lethargic) - Neurologic Neurologic: moves all extremities, other (Lethargy) Results - Labs CBC & Chem 7: 08/24/19 05:53 08/24/19 05:53 Labs: Laboratory Last Values WBC 9.0 K/mm3 (4.5-11.0) 08/20/19 06:11 RBC 3.94 M/mm3 (3.65-5.03) 08/20/19 06:11 Hgb 11.0 gm/dl (10.1-14.3) 08/24/19 05:53 Hct 32.4 % (30.3-42.9) 08/24/19 05:53 MCV 93 fl (79-97) 08/20/19 06:11 MCH 31 pg (28-32) 08/20/19 06:11 MCHC 34 % (30-34) 08/20/19 06:11 RDW 14.1 % (13.2-15.2) 08/20/19 06:11 Plt Count 140 K/mm3 (140-440) 08/24/19 05:53 Lymph % (Auto) 14.2 % (13.4-35.0) 08/20/19 06:11 Mcleod % (Auto) 7.4 % (0.0-7.3) H 08/20/19 06:11 Eos % (Auto) 0.3 % (0.0-4.3) 08/20/19 06:11 Baso % (Auto) 0.2 % (0.0-1.8) 08/20/19 06:11 Lymph # 1.3 K/mm3 (1.2-5.4) 08/20/19 06:11 Mcleod # 0.7 K/mm3 (0.0-0.8) 08/20/19 06:11 Eos # 0.0 K/mm3 (0.0-0.4) 08/20/19 06:11 Baso # 0.0 K/mm3 (0.0-0.1) 08/20/19 06:11 Seg Neutrophils % 77.9 % (40.0-70.0) H 08/20/19 06:11 Seg Neutrophils # 7.0 K/mm3 (1.8-7.7) 08/20/19 06:11 PT 16.6 Sec. (12.2-14.9) H 08/23/19 06:08 INR 1.32 (0.87-1.13) H 08/23/19 06:08 APTT 59.6 Sec. (24.2-36.6) H 08/20/19 23:09 Heparin Anti-Xa Level 0.18 U.I./ml (0.3-0.7) L 08/22/19 15:01 Sodium 138 mmol/L (137-145) 08/24/19 05:53 Potassium 3.4 mmol/L (3.6-5.0) L 08/24/19 05:53 Chloride 101.3 mmol/L (98-107) 08/24/19 05:53 Carbon Dioxide 16 mmol/L (22-30) L D 08/24/19 05:53 Anion Gap 24 mmol/L 08/24/19 05:53 BUN 82 mg/dL (7-17) H 08/24/19 05:53 Creatinine 7.4 mg/dL (0.7-1.2) H 08/24/19 05:53 Estimated GFR 6 ml/min 08/24/19 05:53 BUN/Creatinine Ratio 11 % 08/24/19 05:53 Glucose 225 mg/dL (65-100) H 08/24/19 05:53 POC Glucose 292 (70-105) H 08/24/19 12:52 Lactic Acid 1.70 mmol/L (0.7-2.0) 08/20/19 23:09 Calcium 7.4 mg/dL (8.4-10.2) L 08/24/19 05:53 Magnesium 2.00 mg/dL (1.7-2.3) 08/24/19 05:53 Total Bilirubin 0.30 mg/dL (0.1-1.2) 08/24/19 05:53 Direct Bilirubin < 0.2 mg/dL (0-0.2) 08/23/19 06:08 Indirect Bilirubin 0.0 mg/dL 08/23/19 06:08 AST 511 units/L (5-40) H 08/24/19 05:53 ALT 218 units/L (7-56) H 08/24/19 05:53 Alkaline Phosphatase 59 units/L (35-129) 08/24/19 05:53 Ammonia 10.0 umol/L (25-60) L 08/22/19 11:43 Total Creatine Kinase 86863 units/L (30-135) H 08/24/19 05:53 CK-MB (CK-2) 73.0 ng/mL (0.0-4.0) H 08/21/19 05:35 CK-MB (CK-2) Rel Index 0.3 (0-4) 08/21/19 05:35 Troponin T 0.196 ng/mL (0.00-0.029) H* 08/21/19 05:35 Total Protein 4.9 g/dL (6.3-8.2) L 08/24/19 05:53 Albumin 2.5 g/dL (3.9-5) L 08/24/19 05:53 Albumin/Globulin Ratio 1.0 % 08/24/19 05:53 Triglycerides 125 mg/dL (2-149) 08/20/19 06:11 Cholesterol 89 mg/dL (50-199) 08/20/19 06:11 LDL Cholesterol Direct 45 mg/dL (50-130) L 08/20/19 06:11 HDL Cholesterol 25 mg/dL (40-59) L 08/20/19 06:11 Cholesterol/HDL Ratio 3.56 % 08/20/19 06:11 Urine Color Red (Yellow) 08/20/19 07:38 Urine Turbidity Cloudy (Clear) 08/20/19 07:38 Urine pH 5.0 (5.0-7.0) 08/20/19 07:38 Ur Specific [place] 1.013 (1.003-1.030) 08/20/19 07:38 Urine Protein 100 mg/dl mg/dL (Negative) 08/20/19 07:38 Urine Glucose (UA) Neg mg/dL (Negative) 08/20/19 07:38 Urine Ketones Neg mg/dL (Negative) 02 07:38 Urine Blood Lg (Negative) 08/20/19 07:38 Urine Nitrite Neg (Negative) 08/20/19 07:38 Urine Bilirubin Neg (Negative) 08/20/19 07:38 Urine Urobilinogen < 2.0 mg/dL (<2.0) 08/20/19 07:38 Ur Leukocyte Esterase Sm (Negative) 08/20/19 07:38 Urine WBC (Auto) 25.0 /HPF (0.0-6.0) H 08/20/19 07:38 Urine RBC (Auto) 4.0 /HPF (0.0-6.0) 08/20/19 07:38 U Epithel Cells (Auto) 3.0 /HPF (0-13.0) 08/20/19 07:38 Urine Bacteria (Auto) 1+ /HPF (Negative) 08/20/19 07:38 Amorphous Crystals Few 08/20/19 07:38 Urine Creatinine 102.1 mg/dL (0.1-20.0) H 08/21/19 20:00 Protein/Creatinin Ratio 1.72 08/21/19 20:00 Urine Sodium 44 mmol/L 08/21/19 10:06 Urine Potassium 23.15 mmol/L 08/21/19 10:06 Urine Chloride 22.8 mmolL (110-250) L 08/21/19 10:06 Urine Total Protein 176 mg/dL (5-11.8) H 08/21/19 20:00 Urine Opiates Screen Presumptive positive 08/21/19 20:00 Urine Methadone Screen Presumptive negative 08/21/19 20:00 Acetaminophen < 5.0 ug/mL (10.0-30.0) L 08/22/19 04:34 Ur Barbiturates Screen Presumptive negative 08/21/19 20:00 Ur Phencyclidine Scrn Presumptive negative 08/21/19 20:00 Ur Amphetamines Screen Presumptive negative 08/21/19 20:00 U Benzodiazepines Scrn Presumptive positive 08/21/19 20:00 Urine Cocaine Screen Presumptive negative 08/21/19 20:00 U Marijuana (THC) Screen Presumptive negative 08/21/19 20:00 Drugs of Abuse Note Disclamer 08/21/19 20:00 Hepatitis A IgM Ab Non-reactive (NonReactive) 08/20/19 23:09 Hep Bs Antigen Non-reactive (Negative) 08/20/19 23:09 Hep B Core IgM Ab Non-reactive (NonReactive) 08/20/19 23:09 Hepatitis C Antibody Non-reactive (NonReactive) 08/20/19 23:09 Active Medications - Current Medications Current Medications: Generic Name Dose Route Start Last Admin Trade Name Freq PRN Reason Stop Dose Admin Alprazolam 0.5 mg 08/20/19 10:00 08/24/19 09:55 Xanax PO 0.5 mg BID SHARON Administration Lipase/Protease/Amylase 1 each 08/23/19 14:47 Pancreaze 10,500 Unit FEEDTUBE PRN PRN For Clogged Feeding Tube Aspirin 325 mg 08/20/19 10:00 08/24/19 09:55 Ecotrin PO 325 mg QDAY SHARON Administration Carvedilol 3.125 mg 08/20/19 22:00 08/24/19 09:55 Coreg PO 3.125 mg BID SHARON Administration Clopidogrel Bisulfate 75 mg 08/20/19 10:00 08/24/19 09:56 Plavix PO 75 mg QDAY SHARON Administration Famotidine 20 mg 08/20/19 22:00 08/24/19 09:55 Pepcid IV 20 mg DAILY SHARON Administration Glimepiride 2 mg 08/20/19 10:00 08/24/19 09:55 Amaryl PO 2 mg QDDIAB SHARON Administration Hydralazine HCl 10 mg 08/20/19 09:00 Apresoline IV Q4HR PRN Hypertension Cefepime HCl 2 gm in 100 mls @ 200 mls/hr 08/22/19 08:00 08/24/19 09:59 Cefepime/Ns 2 Gm/100 Ml IV 100 mls/hr Q24H SHARON Administration Protocol Sodium Bicarbonate 150 meq/ 1,150 mls @ 100 mls/hr 08/22/19 09:00 08/24/19 15:09 Dextrose IV 100 mls/hr DIRECT SHARON Administration Insulin Human Lispro 0 unit 08/20/19 22:00 08/24/19 12:54 Humalog SUB-Q 4 unit ACHS SHARON Administration Protocol Levetiracetam 1,500 mg 08/23/19 22:00 08/24/19 09:52 Keppra FEEDTUBE 1,500 mg BID SHARON Administration Nitroglycerin 0.4 mg 08/20/19 19:00 Nitrostat SL .Q5MIN PRN Chest Pain Oxycodone/Acetaminophen 1 tab 08/21/19 20:37 08/23/19 21:30 Percocet 5/325 PO 1 tab Q6H PRN Administration Pain, Moderate (4-6) Pantoprazole Sodium 40 mg 08/20/19 10:00 08/24/19 09:56 Protonix PO 40 mg QDAY SHARON Administration Simple Syrup 15 ml 08/23/19 14:47 Simple Syrup FEEDTUBE PRN PRN Hypoglycemia Simple Syrup 30 ml 08/23/19 14:47 Simple Syrup FEEDTUBE PRN PRN Hypoglycemia Sodium Bicarbonate 325 mg 08/23/19 14:47 Sodium Bicarbonate FEEDTUBE PRN PRN For Clogged Feeding Tube Nutrition/Malnutrition Assess - Dietary Evaluation Nutrition/Malnutrition Findings: Nutrition Notes Start: 08/22/19 10:11 Freq: Status: Active Protocol: Document 08/23/19 14:34 SAFIA (Rec: 08/23/19 14:47 [id number]) Nutrition Notes Need for Assessment generated from: MD Order Initial or Follow up Assessment Current Diagnosis Acute Kidney Injury,CKD(stage I-IV),Coronary Artery Disease, Diabetes Other Pertinent Diagnosis GERD, hypokalemia, anemia, Height 5 ft 5 in Weight 84.2 kg Carlotta Body Weight (kg) 56.81 BMI 30.9 Weight change and time frame weight gain noted. Basing needs on previous weight of 73 .6kg. Weight Status Overweight Subjective/Other Information MD consult for TF. Per RN, pt having dobhoff placed. Percent of energy/protein needs met: 0%/0% (pt refusing) Burn Absent Trauma Absent GI Symptoms None Current % PO Negligible Minimum of two criteria No Reduced [employer] Strength Measurably Reduced (severe) #1 Nutrition Diagnosis Inadequate oral intake Diagnosis Progress(for reassessment Continues documentation) Is patient on ventilator? No Is Patient Ambulatory and/or Out of Bed No REE-([place]-St. Jeor-confined to bed) 0770.724 Calculation Used for Recommendations Kcal/kg Additional Notes protein needs: 61 - 77g (0.8 - 1 g/kgBW) (JULIANO w/ no dialysis) fluid needs: 1 ml/kcal Nutrition Intervention Change Diet Order: TF Nutrition Support: Glucerna 1.2 at 50 ml/hr Provide water flush of 100 ml q4h Kcal 1,440 Protein (gm) 72 Fluid (mL) 966 Add Supplement/Snack (indicate name/kcal DC /protein ) Goal #1 TF initiation/tolerance Goal #2 Meet at least 75% of kcal/ protein needs Anticipated Discharge Needs: unknown at this time Follow-Up By: 08/25/19 Additional Comments F/u for TF tolerance
[2019-08-24 20:46] LABS: Myeloperoxidase Antibody <1.0 AI (<1.0)
[2019-08-24] MEDS: HEPARIN 5,000 UNIT/1 ML VIAL SUB-Q SCH (22:21)
[2019-08-25] MEDS: carvediloL 3.125 MG TAB PO SCH ×3 (00:44→21:31)
[2019-08-25] MEDS: ALPRAZolam 0.5 MG TAB PO SCH ×3 (00:45→21:31)
[2019-08-25] MEDS: SODIUM BICARBONATE 150 MEQ in DEXTROSE 5% IN WATER 1,000 ML IV SCH (05:38)
[2019-08-25 07:34] LABS: Basophils % (Auto) 0.2 % (0.0-1.8); Eosinophils % (Auto) 0.3 % (0.0-4.3); Hematocrit 32.2 % (30.3-42.9); Hemoglobin 10.9 gm/dl (10.1-14.3); Lymphocytes # (Auto) 0.7 K/mm3 (1.2-5.4); Lymphocytes % (Auto) 6.3 % (13.4-35.0); Mean Corpuscular HGB Conc 34 % (30-34); Mean Corpuscular Volume 91 fl (79-97); Monocytes % (Auto) 8.9 % (0.0-7.3); Platelet Count 148 K/mm3 (140-440); Red Blood Count 3.55 M/mm3 (3.65-5.03); Red Cell Distribution Width 14.3 % (13.2-15.2)
[2019-08-25 07:53] LABS: Albumin 2.2 g/dL (3.9-5); Calcium 7.9 mg/dL (8.4-10.2)
[2019-08-25] MEDS ORDERED: SODIUM CHLORIDE 0.9% 100 ML IV PRN (09:32)
[2019-08-25] MEDS ORDERED: HEPARIN 10,000 UNIT/1 ML VIAL IV PRN (09:32)
--- NOTE | 2019-08-25 09:38 | Progress Note ---
Assessment and Plan - Patient Problems (1) Acute kidney injury (JULIANO) with acute tubular necrosis (ATN) Current Visit: Yes Status: Acute Plan to address problem: Acute tubular necrosis secondary to rhabdomyolysis. Kidney function still worsening. Patient with encephalopathy probably uremic. Discussed with son at bedside and he agrees to start dialysis for solute clearance understanding benefits and risks. His was on dialysis for 5 years. We will consult vascular for permacath and initiate dialysis later today. Will monitor mental status for improving with dialysis and further decisions will be based on patient's clinical progression. (2) Anemia Current Visit: Yes Status: Acute Plan to address problem: Erythropoietin on dialysis and follow-up hemoglobin (3) Acute renal failure due to rhabdomyolysis Current Visit: Yes Status: Acute Plan to address problem: Probably statin induced. Statin has been stopped. Follow-up CPK (4) Transaminasemia Current Visit: Yes Status: Acute Plan to address problem: Follow-up liver function test off of statin (5) Hypertensive chronic kidney disease with stage 1 through stage 4 chronic kidney disease, or unspecified chronic kidney disease Current Visit: Yes Status: Acute Plan to address problem: Blood pressure is controlled. Follow-up blood pressure on current medications (6) Metabolic acidosis Current Visit: Yes Status: Acute Plan to address problem: Improved but still low. Will start dialysis and follow-up bicarbonate (7) Type 2 diabetes mellitus with diabetic chronic kidney disease Current Visit: Yes Status: Chronic Plan to address problem: Blood sugar control by primary attending Subjective Date of service: 08/25/19 Principal diagnosis: transaminitis Interval history: Patient seen lying in bed. Her son is at the bedside. She is lethargic. She has an NG tube intact. She is nonverbal Objective - Exam Narrative Exam: Elderly -[place] female lying in bed in no acute distress HEENT: NCAT, nasogastric tube intact Neck: Supple, no venous distention CVS: S1S2 RRR with no murmur, rub or gallop Chest: Clear to auscultation but diminished breath sounds in lower zones Abdomen: Protuberant, soft, nontender, no organomegaly, bowel sounds are present Extremities: No edema Genitourinary deferred Neuro: Lethargic, not following commands, nonverbal - Vital Signs Vital signs: Vital Signs - 12hr 08/24/19 08/25/19 08/25/19 23:35 00:44 03:00 Temperature 98.0 F Pulse Rate 69 70 74 Respiratory 20 Rate Blood Pressure 146/53 146/53 O2 Sat by Pulse 95 Oximetry 08/25/19 08/25/19 04:11 08:40 Temperature 98.1 F Pulse Rate 72 70 Respiratory 20 Rate Blood Pressure 126/51 132/53 O2 Sat by Pulse 99 96 Oximetry - Lab 08/25/19 07:01 08/25/19 07:01 Most recent lab results Calcium 7.9 mg/dL (8.4-10.2) L 08/25/19 07:01 Magnesium 2.00 mg/dL (1.7-2.3) 08/25/19 07:01 Urine Creatinine 102.1 mg/dL (0.1-20.0) H 08/21/19 20:00 Urine Sodium 44 mmol/L 08/21/19 10:06 Urine Total Protein 176 mg/dL (5-11.8) H 08/21/19 20:00 Medications & Allergies - Medications Allergies/Adverse Reactions: Allergies No Known Allergies Allergy (Verified 11/29/13 10:39) Home Medications: Home Medications Medication Instructions Recorded Confirmed Last Taken Type ALPRAZolam [Xanax TAB] 0.5 mg PO BID 03/21/13 08/20/19 01/29/14 History Amlodipine Bes/Olmesartan Med 2.5 mg PO QDAY 03/21/13 08/20/19 1 Day Ago History [Shekhar 10-20 mg] ~08/19/19 Glimepiride [Amaryl] 2 mg PO QAM 03/21/13 08/20/19 1 Day Ago History ~08/19/19 2 mg Losartan [Cozaar] 25 mg PO QDAY 03/21/13 08/20/19 1 Day Ago History ~08/19/19 25 mg Atorvastatin [Lipitor] 40 mg PO QHS 11/13/13 08/20/19 01/29/14 History Oxycodone HCl/Acetaminophen 1 each PO Q6HR PRN #20 tablet 11/29/13 08/20/19 01/30/14 Rx [Percocet 7.5/325 mg] Aspirin EC [Ecotrin] 325 mg PO QDAY #30 tablet 02/08/14 08/20/19 Unknown Rx Clopidogrel [Plavix] 75 mg PO QDAY #30 tablet 02/08/14 08/20/19 Unknown Rx Pantoprazole [Protonix TAB] 40 mg PO QDAY #30 tablet 02/08/14 08/20/19 1 Day Ago Rx ~08/19/19 40 mg carvediloL [Coreg] 3.125 mg PO BID #60 tablet 02/08/14 08/20/19 Unknown Rx levETIRAcetam [Keppra TAB] 1,500 mg PO BID 08/20/19 08/20/19 Unknown History Citalopram [celeXA] 40 mg PO QDAY 08/22/19 08/22/19 Unknown History Active Medications: Generic Name Dose Route Start Last Admin Trade Name Freq PRN Reason Stop Dose Admin Alprazolam 0.5 mg 08/20/19 10:00 08/25/19 00:45 Xanax PO Not Given BID SHARON Lipase/Protease/Amylase 1 each 08/23/19 14:[address] 10,500 Unit FEEDTUBE PRN PRN For Clogged Feeding Tube Aspirin 325 mg 08/20/19 10:00 08/24/19 09:55 Ecotrin PO 325 mg QDAY SHARON Administration Carvedilol 3.125 mg 08/20/19 22:00 08/25/19 00:44 Coreg PO 3.125 mg BID SHARON Administration Clopidogrel Bisulfate 75 mg 08/20/19 10:00 08/24/19 09:56 Plavix PO 75 mg QDAY SHARON Administration Famotidine 20 mg 08/20/19 22:00 08/24/19 09:55 Pepcid IV 20 mg DAILY SHARON Administration Glimepiride 2 mg 08/20/19 10:00 08/24/19 09:55 Amaryl PO 2 mg QDDIAB SHARON Administration Heparin Sodium (Porcine) 5,000 unit 08/24/19 22:00 08/24/19 22:21 Heparin SUB-Q 5,000 unit Q12HR SHARON Administration Heparin Sodium (Porcine) 5,000 unit 08/25/19 09:32 Heparin IV DESIRAE PRN hemodialysis Hydralazine HCl 10 mg 08/20/19 09:00 Apresoline IV Q4HR PRN Hypertension Cefepime HCl 2 gm in 100 mls @ 200 mls/hr 08/22/19 08:00 08/24/19 09:59 Cefepime/Ns 2 Gm/100 Ml IV 100 mls/hr Q24H SHARON Administration Protocol Sodium Bicarbonate 150 meq/ 1,150 mls @ 100 mls/hr 08/22/19 09:00 08/25/19 05:38 Dextrose IV 100 mls/hr DIRECT SHARON Administration Sodium Chloride 100 mls @ 999 mls/hr 08/25/19 09:32 Nacl 0.9% IV DESIRAE PRN Hypotension Insulin Human Lispro 0 unit 08/20/19 22:00 08/24/19 22:21 Humalog SUB-Q 4 unit ACHS SHARON Administration Protocol Levetiracetam 1,500 mg 08/23/19 22:00 08/24/19 22:21 Keppra FEEDTUBE 1,500 mg BID SHARON Administration Nitroglycerin 0.4 mg 08/20/19 19:00 Nitrostat SL .Q5MIN PRN Chest Pain Oxycodone/Acetaminophen 1 tab 08/21/19 20:37 08/23/19 21:30 Percocet 5/325 PO 1 tab Q6H PRN Administration Pain, Moderate (4-6) Pantoprazole Sodium 40 mg 08/20/19 10:00 08/24/19 09:56 Protonix PO 40 mg QDAY SHARON Administration Simple Syrup 15 ml 08/23/19 14:47 Simple Syrup FEEDTUBE PRN PRN Hypoglycemia Simple Syrup 30 ml 08/23/19 14:47 Simple Syrup FEEDTUBE PRN PRN Hypoglycemia Sodium Bicarbonate 325 mg 08/23/19 14:47 Sodium Bicarbonate FEEDTUBE PRN PRN For Clogged Feeding Tube
--- NOTE | 2019-08-25 11:14 | Progress Note ---
Assessment and Plan Assessment and plan: Important active issues: 1. Worsening renal function; nephrology planning to initiate hemodialysis 2. Severe rhabdomyolysis; CK 16,000, with renal and liver failure aggressive IV hydration 3. Acute liver failure/transaminitis 4. Non-ST elevation [place]; stress test today Patient has multiple medical problems involving multiple organs Metabolic encephalopathy secondary to uremia liver failure Dementia, rhabdomyolysis, metabolic acidosis Patient is critically ill, family aware Nephrology, GI cardiology evaluated the patient Medications optimized Remains critically ill --Metabolic encephalopathy; multifactorial Uremia, transaminitis, acidosis, advanced age Patient is lethargic, Dobbhoff in place For medications and tube feeding speech and swallow evaluation,. --Transaminitis; unknown etiology Hepatitis panel negative, follow abdominal ultrasound biliary sludge, no cholecystitis, dilated common bile duct GI following, unable to do MRI due to ICD Management per GI --Rhabdomyolysis; CK trending down from CK 20,089 -17,914 viigorous IV hydration,Monitor renal function, input output, Hold statin, nephrology following --Acute kidney injury; vasomotor nephropathy Worsening renal function, nephrology following --Metabolic acidosis:acute kidney injury,mgt per neurology --Severe hypokalemia; corrected Closely monitor electrolytes --Non-ST elevation IL; In the setting of acute renal failure could be NSTEMI 2 However patient has risk factors, coronary artery disease status post PCI in 2013 Serial cardiac enzymes, heparin drip, antiplatelets, beta-blockers echocardiogram, Cardiology evaluated no cardiac work-up intended --Coronary artery disease status post PCI --ICD in place; monitor, cardiology evaluation if needed --Dyslipidemia; hold statin in view of rhabdo/transaminitis --Type 2 diabetes mellitus; Accu-Chek sliding scale coverage ADA diet, insulin as needed --History of seizure disorder; seizure precautions Continue Keppra --Hypertension; moderate control Continue current antihypertensives and PRN medications --DVT prophylaxis; heparin renal dose --DNR Patient is critically ill with multiorgan involvement Very poor prognosis, discussed with the daughter Advance directives discussed extensively with daughter and son Had many questions answered all of them, decided to place DNR status. Brief history; 84-year-old -[place] female patient with significant history of hypertension ,diabetes mellitus, coronary artery disease status post PCI ,CVA an d seizure disorder Presented to the emergency room with complaints of generalized weakness, work-up is consistent with acute renal failure, acute liver failure, severe rhabdomyolysis, non-ST elevation IL, severe metabolic encephalopathy, multiple specialists are following the patient Nephrology initiated hemodialysis today. Very poor prognosis, after discussing extensively about the goals of treatment and CODE STATUS Patient's daughter and son requested DNR status. Advised to continue all the treatment History Interval history: Patient seen and examined medical records reviewed Patient is critically ill with multiorgan involvement Acute renal failure, nephrology initiated hemodialysis Patient is critically ill looking, lethargic noncommunicative Labored breathing And severe distress Hospitalist Physical - Constitutional Vitals: Temp Pulse Resp BP Pulse Ox 98.1 F 70 20 132/53 96 08/25/19 04:11 08/25/19 08:40 08/25/19 04:11 08/25/19 08:40 08/25/19 08:40 General appearance: Present: mild distress, well-nourished, other (Lethargic) - EENT Eyes: Present: PERRL, EOM intact - Neck Neck: Present: supple, normal ROM - Respiratory Respiratory effort: labored Respiratory: bilateral: diminished, rhonchi, negative: rales, wheezing - Cardiovascular Rhythm: regular Heart Sounds: Present: S1 & S2 - Extremities Extremities: no ischemia Extremity abnormal: edema - Abdominal General gastrointestinal: soft, non-tender, non-distended, normal bowel sounds - Integumentary Integumentary: Present: clear, warm - Psychiatric Psychiatric: other (Encephalopathic) - Neurologic Neurologic: other (Noncommunicative) Results - Labs CBC & Chem 7: 08/25/19 07:01 08/25/19 07:01 Labs: Laboratory Last Values WBC 11.7 K/mm3 (4.5-11.0) H 08/25/19 07:01 RBC 3.55 M/mm3 (3.65-5.03) L 08/25/19 07:01 Hgb 10.9 gm/dl (10.1-14.3) 08/25/19 07:01 Hct 32.2 % (30.3-42.9) 08/25/19 07:01 MCV 91 fl (79-97) 08/25/19 07:01 MCH 31 pg (28-32) 08/25/19 07:01 MCHC 34 % (30-34) 08/25/19 07:01 RDW 14.3 % (13.2-15.2) 08/25/19 07:01 Plt Count 148 K/mm3 (140-440) 08/25/19 07:01 Lymph % (Auto) 6.3 % (13.4-35.0) L 08/25/19 07:01 [place] % (Auto) 8.9 % (0.0-7.3) H 08/25/19 07:01 Eos % (Auto) 0.3 % (0.0-4.3) 08/25/19 07:01 Baso % (Auto) 0.2 % (0.0-1.8) 08/25/19 07:01 Lymph # 0.7 K/mm3 (1.2-5.4) L 08/25/19 07:01 [place] # 1.0 K/mm3 (0.0-0.8) H 08/25/19 07:01 Eos # 0.0 K/mm3 (0.0-0.4) 08/25/19 07:01 Baso # 0.0 K/mm3 (0.0-0.1) 08/25/19 07:01 Seg Neutrophils % 84.3 % (40.0-70.0) H 08/25/19 07:01 Seg Neutrophils # 9.9 K/mm3 (1.8-7.7) H 08/25/19 07:01 PT 16.6 Sec. (12.2-14.9) H 08/23/19 06:08 INR 1.32 (0.87-1.13) H 08/23/19 06:08 APTT 59.6 Sec. (24.2-36.6) H 08/20/19 23:09 Heparin Anti-Xa Level 0.18 U.I./ml (0.3-0.7) L 08/22/19 15:01 Sodium 136 mmol/L (137-145) L 08/25/19 07:01 Potassium 3.9 mmol/L (3.6-5.0) 08/25/19 07:01 Chloride 95.9 mmol/L (98-107) L 08/25/19 07:01 Carbon Dioxide 17 mmol/L (22-30) L 08/25/19 07:01 Anion Gap 27 mmol/L 08/25/19 07:01 BUN 88 mg/dL (7-17) H 08/25/19 07:01 Creatinine 7.7 mg/dL (0.7-1.2) H 08/25/19 07:01 Estimated GFR 6 ml/min 08/25/19 07:01 BUN/Creatinine Ratio 11 % 08/25/19 07:01 Glucose 236 mg/dL (65-100) H 08/25/19 07:01 POC Glucose 260 (70-105) H 08/25/19 08:52 Lactic Acid 1.70 mmol/L (0.7-2.0) 08/20/19 23:09 Calcium 7.9 mg/dL (8.4-10.2) L 08/25/19 07:01 Magnesium 2.00 mg/dL (1.7-2.3) 08/25/19 07:01 Total Bilirubin 0.20 mg/dL (0.1-1.2) 08/25/19 07:01 Direct Bilirubin < 0.2 mg/dL (0-0.2) 08/23/19 06:08 Indirect Bilirubin 0.0 mg/dL 08/23/19 06:08 AST 462 units/L (5-40) H 08/25/19 07:01 ALT 223 units/L (7-56) H 08/25/19 07:01 Alkaline Phosphatase 67 units/L (35-129) 08/25/19 07:01 Ammonia 10.0 umol/L (25-60) L 08/22/19 11:43 Total Creatine Kinase 57316 units/L (30-135) H 08/25/19 07:01 CK-MB (CK-2) 73.0 ng/mL (0.0-4.0) H 08/21/19 05:35 CK-MB (CK-2) Rel Index 0.3 (0-4) 08/21/19 05:35 Troponin T 0.196 ng/mL (0.00-0.029) H* 08/21/19 05:35 Total Protein 5.3 g/dL (6.3-8.2) L 08/25/19 07:01 Albumin 2.2 g/dL (3.9-5) L 08/25/19 07:01 Albumin/Globulin Ratio 0.7 % 08/25/19 07:01 Triglycerides 125 mg/dL (2-149) 08/20/19 06:11 Cholesterol 89 mg/dL (50-199) 08/20/19 06:11 LDL Cholesterol Direct 45 mg/dL (50-130) L 08/20/19 06:11 HDL Cholesterol 25 mg/dL (40-59) L 08/20/19 06:11 Cholesterol/HDL Ratio 3.56 % 08/20/19 06:11 Urine Color Red (Yellow) 08/20/19 07:38 Urine Turbidity Cloudy (Clear) 08/20/19 07:38 Urine pH 5.0 (5.0-7.0) 08/20/19 07:38 Ur Specific [place] 1.013 (1.003-1.030) 08/20/19 07:38 Urine Protein 100 mg/dl mg/dL (Negative) 08/20/19 07:38 Urine Glucose (UA) Neg mg/dL (Negative) 08/20/19 07:38 Urine Ketones Neg mg/dL (Negative) 08/20/19 07:38 Urine Blood Lg (Negative) 08/20/19 07:38 Urine Nitrite Neg (Negative) 08/20/19 07:38 Urine Bilirubin Neg (Negative) 08/20/19 07:38 Urine Urobilinogen < 2.0 mg/dL (<2.0) 08/20/19 07:38 Ur Leukocyte Esterase Sm (Negative) 08/20/19 07:38 Urine WBC (Auto) 25.0 /HPF (0.0-6.0) H 08/20/19 07:38 Urine RBC (Auto) 4.0 /HPF (0.0-6.0) 08/20/19 07:38 U Epithel Cells (Auto) 3.0 /HPF (0-13.0) 08/20/19 07:38 Urine Bacteria (Auto) 1+ /HPF (Negative) 08/20/19 07:38 Amorphous Crystals Few 08/20/19 07:38 Urine Creatinine 102.1 mg/dL (0.1-20.0) H 08/21/19 20:00 Protein/Creatinin Ratio 1.72 08/21/19 20:00 Urine Sodium 44 mmol/L 08/21/19 10:06 Urine Potassium 23.15 mmol/L 08/21/19 10:06 Urine Chloride 22.8 mmolL (110-250) L 08/21/19 10:06 Urine Total Protein 176 mg/dL (5-11.8) H 08/21/19 20:00 Urine Opiates Screen Presumptive positive 08/21/19 20:00 Urine Methadone Screen Presumptive negative 08/21/19 20:00 Acetaminophen < 5.0 ug/mL (10.0-30.0) L 08/22/19 04:34 Ur Barbiturates Screen Presumptive negative 08/21/19 20:00 Ur Phencyclidine Scrn Presumptive negative 08/21/19 20:00 Ur Amphetamines Screen Presumptive negative 08/21/19 20:00 U Benzodiazepines Scrn Presumptive positive 08/21/19 20:00 Urine Cocaine Screen Presumptive negative 08/21/19 20:00 U Marijuana (THC) Screen Presumptive negative 08/21/19 20:00 Drugs of Abuse Note Disclamer 08/21/19 20:00 Proteinase 3 (PR3) Ab <1.0 AI (<1.0) 08/21/19 08:51 Myeloperoxidase Ab <1.0 AI (<1.0) 08/21/19 08:51 Hepatitis A IgM Ab Non-reactive (NonReactive) 08/20/19 23:09 Hep Bs Antigen Non-reactive (Negative) 08/20/19 23:09 Hep B Core IgM Ab Non-reactive (NonReactive) 08/20/19 23:09 Hepatitis C Antibody Non-reactive (NonReactive) 08/20/19 23:09 Active Medications - Current Medications Current Medications: Generic Name Dose Route Start Last Admin Trade Name Freq PRN Reason Stop Dose Admin Alprazolam 0.5 mg 08/20/19 10:00 08/25/19 00:45 Xanax PO Not Given BID [facility] Lipase/Protease/Amylase 1 each 08/23/19 14:[address] 10,500 Unit FEEDTUBE PRN PRN For Clogged Feeding Tube Aspirin 325 mg 08/20/19 10:00 08/24/19 09:55 Ecotrin PO 325 mg QDAY SHARON Administration Carvedilol 3.125 mg 08/20/19 22:00 08/25/19 00:44 Coreg PO 3.125 mg BID SHARON Administration Clopidogrel Bisulfate 75 mg 08/20/19 10:00 08/24/19 09:56 Plavix PO 75 mg QDAY SHARON Administration Epoetin Rahul 10,000 unit 08/25/19 09:32 Procrit IV DESIRAE PRN hemodialysis Famotidine 20 mg 08/20/19 22:00 08/24/19 09:55 Pepcid IV 20 mg DAILY SHARON Administration Glimepiride 2 mg 08/20/19 10:00 08/24/19 09:55 Amaryl PO 2 mg QDDIAB SHARON Administration Heparin Sodium (Porcine) 5,000 unit 08/24/19 22:00 08/24/19 22:21 Heparin SUB-Q 5,000 unit Q12HR SHARON Administration Heparin Sodium (Porcine) 5,000 unit 08/25/19 09:32 Heparin IV DESIRAE PRN hemodialysis Hydralazine HCl 10 mg 08/20/19 09:00 Apresoline IV Q4HR PRN Hypertension Cefepime HCl 2 gm in 100 mls @ 200 mls/hr 08/22/19 08:00 08/24/19 09:59 Cefepime/Ns 2 Gm/100 Ml IV 100 mls/hr Q24H SHARON Administration Protocol Sodium Bicarbonate 150 meq/ 1,150 mls @ 100 mls/hr 08/22/19 09:00 08/25/19 05:38 Dextrose IV 100 mls/hr DIRECT SHARON Administration Sodium Chloride 100 mls @ 999 mls/hr 08/25/19 09:32 Nacl 0.9% IV DESIRAE PRN Hypotension Insulin Human Lispro 0 unit 08/20/19 22:00 08/24/19 22:21 Humalog SUB-Q 4 unit ACHS SHARON Administration Protocol Levetiracetam 1,500 mg 08/23/19 22:00 08/24/19 22:21 Keppra FEEDTUBE 1,500 mg BID SHARON Administration Nitroglycerin 0.4 mg 08/20/19 19:00 Nitrostat SL .Q5MIN PRN Chest Pain Oxycodone/Acetaminophen 1 tab 08/21/19 20:37 08/23/19 21:30 Percocet 5/325 PO 1 tab Q6H PRN Administration Pain, Moderate (4-6) Pantoprazole Sodium 40 mg 08/20/19 10:00 08/24/19 09:56 Protonix PO 40 mg QDAY SHARON Administration Simple Syrup 15 ml 08/23/19 14:47 Simple Syrup FEEDTUBE PRN PRN Hypoglycemia Simple Syrup 30 ml 08/23/19 14:47 Simple Syrup FEEDTUBE PRN PRN Hypoglycemia Sodium Bicarbonate 325 mg 08/23/19 14:47 Sodium Bicarbonate FEEDTUBE PRN PRN For Clogged Feeding Tube Nutrition/Malnutrition Assess - Dietary Evaluation Nutrition/Malnutrition Findings: Nutrition Notes Start: 08/22/19 10 :11 Freq: Status: Active Protocol: Document 08/23/19 14:34 SAFIA (Rec: 08/23/19 14:47 [id number]) Nutrition Notes Need for Assessment generated from: MD Order Initial or Follow up Assessment Current Diagnosis Acute Kidney Injury,CKD(stage I-IV),Coronary Artery Disease, Diabetes Other Pertinent Diagnosis GERD, hypokalemia, anemia, Height 5 ft 5 in Weight 84.2 kg [place] Body Weight (kg) 56.81 BMI 30.9 Weight change and time frame weight gain noted. Basing needs on previous weight of 73 .6kg. Weight Status Overweight Subjective/Other Information MD consult for TF. Per RN, pt having dobhoff placed. Percent of energy/protein needs met: 0%/0% (pt refusing) Burn Absent Trauma Absent GI Symptoms None Current % PO Negligible Minimum of two criteria No Reduced Switching Clerk Strength Measurably Reduced (severe) #1 Nutrition Diagnosis Inadequate oral intake Diagnosis Progress(for reassessment Continues documentation) Is patient on ventilator? No Is Patient Ambulatory and/or Out of Bed No REE-([facility]-confined to bed) 1546.692 Calculation Used for Recommendations Kcal/kg Additional Notes protein needs: 61 - 77g (0.8 - 1 g/kgBW) (JULIANO w/ no dialysis) fluid needs: 1 ml/kcal Nutrition Intervention Change Diet Order: TF Nutrition Support: Glucerna 1.2 at 50 ml/hr Provide water flush of 100 ml q4h Kcal 1,440 Protein (gm) 72 Fluid (mL) 966 Add Supplement/Snack (indicate name/kcal DC /protein ) Goal #1 TF initiation/tolerance Goal #2 Meet at least 75% of kcal/ protein needs Anticipated Discharge Needs: unknown at this time Follow-Up By: 08/25/19 Additional Comments F/u for TF tolerance
[2019-08-25] MEDS ORDERED: HEPARIN/NS 5000 UNIT/500ML 500 ML IR ONE (11:30)
[2019-08-25] MEDS ORDERED: MIDAZOLAM 2 MG/2 ML INJ ONE (11:30)
[2019-08-25] MEDS ORDERED: HEPARIN 10,000 UNITS/10 ML VIAL ONE (11:30)
[2019-08-25] MEDS ORDERED: fentaNYL 100 MCG/2 ML INJ ONE (11:31)
[2019-08-25] MEDS ORDERED: LIDOCAINE (2%) 20 MG/1 ML VIAL 20 ML MDV INFILTRATI ONE (11:31)
[2019-08-25] MEDS: INSULIN LISPRO 100 UNIT/ML SUB-Q SCH ×2 (11:41→15:55)
[2019-08-25] MEDS: levETIRAcetam 500 MG/5 ML ORAL LIQD FEEDTUBE SCH ×2 (11:41→21:32)
[2019-08-25] MEDS ORDERED: SODIUM CHLORIDE 0.9% 250ML 250 ML ONE (12:12)
--- NOTE | 2019-08-25 12:52 | Post Operative Note ---
Pre-op diagnosis: ESRD Post-op diagnosis: same Procedure: 1. Right IJ Permcath Insertion 2. Monitored Conscious Sedation for 15 minutes Anesthesia: MAC, local Surgeon: ALEJA GRAAHM Estimated blood loss: minimal Pathology: none Condition: stable Disposition: floor
--- NOTE | 2019-08-25 13:05 | Operative Report ---
STAFF SURGEON: Dr. Faustino Costello. PREOPERATIVE DIAGNOSIS: End-stage renal disease. POSTOPERATIVE DIAGNOSIS: End-stage renal disease. PROCEDURE PERFORMED: 1. Right IJ PermCath insertion. 2. Monitored conscious sedation for 15 minutes. COMPLICATIONS: None. ESTIMATED BLOOD LOSS: Less than 10 mL. ANESTHESIA: Local MAC. INDICATIONS FOR PROCEDURE: This is an 84-year-old female who has worsening deterioration of her renal function leading to worsening uremia and thought to be potentially patient's reason for a presentation of altered mental status and unresponsiveness. Therefore, a vascular consultation was obtained for evaluation and possible PermCath placement. The patient's family was explained of the risks, benefits and alternatives of procedure, expressed understanding and wished to proceed. DESCRIPTION OF PROCEDURE: After appropriate consent was obtained, the patient was brought back to the electronic lab technician, placed on table in supine position. The right neck and chest were prepped and draped in usual sterile fashion with ChloraPrep. Appropriate timeout was performed indicating correct patient, procedure, and site of procedure. I then began the intervention by obtaining percutaneous access of the right internal jugular vein using micropuncture technique. Once we obtained access, needle was exchanged for a micropuncture sheath using Seldinger technique, then a stiff J-wire was placed into the inferior vena cava. The micropuncture sheath was removed. A stab incision was made on the right anterior chest wall. A subcutaneous tunnel was made, bringing through a 23 cm straight PermCath. The access site was fairly dilated appropriately. Then, sheath and dilator was placed over the wire into the SVC. The dilator and wire were removed. The catheter was placed through the peel-away sheath with the tip of the catheter at the SVC right atrial junction. The peel-away sheath was removed. Both lumens roslyn blood appropriately, were flushed with heparinized saline. Appropriate amount of heparin was placed in each port. Access site was then closed with deep subcutaneous layer with 3-0 Vicryl and the skin was approximated with 3-0 nylon. The catheter exit site was sutured in place with 3-0 nylon. Appropriate dressing was placed. The patient tolerated the procedure well, emerged from her conscious sedation and was sent to recovery in stable condition. JOB# [id number] N/NTS
--- NOTE | 2019-08-25 14:21 | Gastroenterology Progress Note ---
Assessment and Plan 1.Transaminitis -plt WNL -INR 1.32-trending down -AST/ALT slowly improving (T.stephanie and alk phos WNL) -acute hepatitis panel negative -abd CT showed sludge in gallbladder with no acute cholecystitis or biliary ductal dilatation; liver normal -abd U/S showed sludge vs tiny stones in gallbladder and CBC dilated to 10.9 mm but no obstruction lesion seen -MR/MRCP unable to be done due to AICD -etiology-likely 2/2 rhabdomyolysis -suspect w/ improved primary process LFT's will also improve -Rhabdo management per primary team -avoid hepatotoxic agents -continue to trend labs and supportive care 2.Acute kidney failure 3.severe hypokalemia 4.NSTEMI 5.CAD 6.cardiomyopathy (s/p ICD; resolving; EF 55%) 7.metabolic acidosis 8.DM 9.dyslipidemia 10.HTN Subjective Date of service: 08/25/19 Principal diagnosis: transaminitis Interval history: No acute distress. Tolerating TFs. Objective - Constitutional Vitals: Temp Pulse Resp BP Pulse Ox 98.1 F 70 20 132/53 96 08/25/19 04:11 08/25/19 08:40 08/25/19 04:11 08/25/19 08:40 08/25/19 08:40 General appearance: no acute distress, other (lethargic) - Respiratory Respiratory effort: normal Respiratory: bilateral: diminished - Cardiovascular Rhythm: regular - Gastrointestinal General gastrointestinal: Present: soft, non-distended, normal bowel sounds - Neurologic Neurological: other (unable to assess) - Labs CBC & Chem 7: 08/25/19 07:01 08/25/19 07:01 Labs: Laboratory Results - last 24 hr 08/21/19 08/24/19 08/24/19 08:51 17:30 21:41 WBC RBC Hgb Hct MCV MCH MCHC RDW Plt Count Lymph % (Auto) [place] % (Auto) Eos % (Auto) Baso % (Auto) Lymph # [place] # Eos # Baso # Seg Neutrophils % Seg Neutrophils # Sodium Potassium Chloride Carbon Dioxide Anion Gap BUN Creatinine Estimated GFR BUN/Creatinine Ratio Glucose POC Glucose 238 H 260 H Calcium Magnesium Total Bilirubin AST ALT Alkaline Phosphatase Total Creatine Kinase Total Protein Albumin Albumin/Globulin Ratio Proteinase 3 (PR3) Ab <1.0 Myeloperoxidase Ab <1.0 0208/25/19 08/25/19 07:01 07:01 08:52 WBC 11.7 H RBC 3.55 L Hgb 10.9 Hct 32.2 MCV 91 MCH 31 MCHC 34 RDW 14.3 Plt Count 148 Lymph % (Auto) 6.3 L [place] % (Auto) 8.9 H Eos % (Auto) 0.3 Baso % (Auto) 0.2 Lymph # 0.7 L [place] # 1.0 H Eos # 0.0 Baso # 0.0 Seg Neutrophils % 84.3 H Seg Neutrophils # 9.9 H Sodium 136 L Potassium 3.9 Chloride 95.9 L Carbon Dioxide 17 L Anion Gap 27 BUN 88 H Creatinine 7.7 H Estimated GFR 6 BUN/Creatinine Ratio 11 Glucose 236 H POC Glucose 260 H Calcium 7.9 L Magnesium 2.00 Total Bilirubin 0.20 AST 462 H ALT 223 H Alkaline Phosphatase 67 Total Creatine Kinase 52762 H Total Protein 5.3 L Albumin 2.2 L Albumin/Globulin Ratio 0.7 Proteinase 3 (PR3) Ab Myeloperoxidase Ab
[2019-08-25] MEDS: GLIMEPIRIDE 2 MG TAB PO SCH (15:52)
[2019-08-25] MEDS: ASPIRIN EC 325 MG TAB PO SCH (15:54)
[2019-08-25] MEDS: PANTOPRAZOLE 40 MG TAB PO SCH (15:54)
[2019-08-25] MEDS: HEPARIN 5,000 UNIT/1 ML VIAL SUB-Q SCH ×2 (15:54→21:32)
[2019-08-25] MEDS: FAMOTIDINE 20 MG/2 ML INJ IV SCH (15:54)
[2019-08-25] MEDS: CLOPIDOGREL 75 MG TAB PO SCH (15:54)
[2019-08-25] MEDS: CEFEPIME/NS 2 GM/100 ML 2 GM/100 ML BAG IV SCH (15:55)
[2019-08-26] MEDS: INSULIN LISPRO 100 UNIT/ML SUB-Q SCH ×6 (05:47→21:01)
[2019-08-26 06:33] LABS: Hematocrit 27.8 % (30.3-42.9); Hemoglobin 9.5 gm/dl (10.1-14.3); Mean Corpuscular HGB Conc 34 % (30-34); Mean Corpuscular Volume 91 fl (79-97); Platelet Count 138 K/mm3 (140-440); Red Blood Count 3.06 M/mm3 (3.65-5.03); Red Cell Distribution Width 14.2 % (13.2-15.2)
[2019-08-26 06:38] LABS: Calcium 8.6 mg/dL (8.4-10.2)
[2019-08-26 06:45] LABS: Basophils % (Auto) 0.2 % (0.0-1.8); Eosinophils % (Auto) 0.3 % (0.0-4.3); Lymphocytes # (Auto) 0.7 K/mm3 (1.2-5.4); Lymphocytes % (Auto) 6.1 % (13.4-35.0); Monocytes # (Auto) 1.2 K/mm3 (0.0-0.8); Monocytes % (Auto) 10.5 % (0.0-7.3)
--- NOTE | 2019-08-26 08:49 | Progress Note ---
Assessment and Plan - Patient Problems (1) Acute kidney injury (JULIANO) with acute tubular necrosis (ATN) Current Visit: Yes Status: Acute Plan to address problem: Acute tubular necrosis secondary to rhabdomyolysis. Status post hemodialysis yesterday with improvement in renal indices but no improvement in mental status yet. Will dialyze again today and follow-up tomorrow. (2) Anemia Current Visit: Yes Status: Acute Plan to address problem: Erythropoietin on dialysis and follow-up hemoglobin (3) Acute renal failure due to rhabdomyolysis Current Visit: Yes Status: Acute Plan to address problem: Probably statin induced. Statin has been stopped. CPK is not significantly changed. Follow-up CPK in the morning (4) Transaminasemia Current Visit: Yes Status: Acute Plan to address problem: Liver function tests not significantly changed. Follow-up liver function test off of statin (5) Hypertensive chronic kidney disease with stage 1 through stage 4 chronic kidney disease, or unspecified chronic kidney disease Current Visit: Yes Status: Acute Plan to address problem: Blood pressure is controlled. Follow-up blood pressure on current medications (6) Metabolic acidosis Current Visit: Yes Status: Acute Plan to address problem: Improved back to normal with dialysis. (7) Type 2 diabetes mellitus with diabetic chronic kidney disease Current Visit: Yes Status: Chronic Plan to address problem: Blood sugar control by primary attending Subjective Date of service: 08/26/19 Principal diagnosis: transaminitis Interval history: Patient seen lying in bed. No family at the bedside. She is still lethargic. She does grunt to noxious stimuli now and moves left upper extremity. She has an NG tube intact. Objective - Exam Narrative Exam: Elderly -[place] female lying in bed in no acute distress HEENT: NCAT, nasogastric tube intact Neck: Supple, no venous distention CVS: S1S2 RRR with no murmur, rub or gallop Chest: Clear to auscultation but diminished breath sounds in lower zones Abdomen: Protuberant, soft, nontender, no organomegaly, bowel sounds are present Extremities: No edema Genitourinary deferred Neuro: Lethargic, not following commands, nonverbal - Vital Signs Vital signs: Vital Signs - 12hr 08/25/19 08/26/19 08/26/19 21:31 00:00 04:26 Temperature 98.0 F Pulse Rate 80 70 Pulse Rate [ 82 From Monitor] Respiratory 16 Rate Blood Pressure 182/64 178/51 O2 Sat by Pulse 95 Oximetry 08/26/19 07:36 Temperature 98.9 F Pulse Rate 76 Pulse Rate [ From Monitor] Respiratory 20 Rate Blood Pressure 178/69 O2 Sat by Pulse 100 Oximetry - Lab 08/26/19 05:49 08/26/19 05:49 Most recent lab results Calcium 8.6 mg/dL (8.4-10.2) 08/26/19 05:49 Magnesium 2.00 mg/dL (1.7-2.3) 08/25/19 07:01 Urine Creatinine 102.1 mg/dL (0.1-20.0) H 08/21/19 20:00 Urine Sodium 44 mmol/L 08/21/19 10:06 Urine Total Protein 176 mg/dL (5-11.8) H 08/21/19 20:00 Medications & Allergies - Medications Allergies/Adverse Reactions: Allergies No Known Allergies Allergy (Verified 11/29/13 10:39) Home Medications: Home Medications Medication Instructions Recorded Confirmed Last Taken Type ALPRAZolam [Xanax TAB] 0.5 mg PO BID 03/21/13 08/20/19 01/29/14 History Amlodipine Bes/Olmesartan Med 2.5 mg PO QDAY 03/21/13 08/20/19 1 Day Ago History [Shekhar 10-20 mg] ~08/19/19 Glimepiride [Amaryl] 2 mg PO QAM 03/21/13 08/20/19 1 Day Ago History ~08/19/19 2 mg Losartan [Cozaar] 25 mg PO QDAY 03/21/13 08/20/19 1 Day Ago History ~08/19/19 25 mg Atorvastatin [Lipitor] 40 mg PO QHS 11/13/13 08/20/19 01/29/14 History Oxycodone HCl/Acetaminophen 1 each PO Q6HR PRN #20 tablet 11/29/13 08/20/19 01/30/14 Rx [Percocet 7.5/325 mg] Aspirin EC [Ecotrin] 325 mg PO QDAY #30 tablet 02/08/14 08/20/19 Unknown Rx Clopidogrel [Plavix] 75 mg PO QDAY #30 tablet 02/08/14 08/20/19 Unknown Rx Pantoprazole [Protonix TAB] 40 mg PO QDAY #30 tablet 02/08/14 08/20/19 1 Day Ago Rx ~08/19/19 40 mg carvediloL [Coreg] 3.125 mg PO BID #60 tablet 02/08/14 08/20/19 Unknown Rx levETIRAcetam [Keppra TAB] 1,500 mg PO BID 08/20/19 08/20/19 Unknown History Citalopram [celeXA] 40 mg PO QDAY 08/22/19 08/22/19 Unknown History Active Medications: Generic Name Dose Route Start Last Admin Trade Name Freq PRN Reason Stop Dose Admin Alprazolam 0.5 mg 08/20/19 10:00 08/25/19 21:31 Xanax PO 0.5 mg BID SHARON Administration Lipase/Protease/Amylase 1 each 08/23/19 14:[address] 10,500 Unit FEEDTUBE PRN PRN For Clogged Feeding Tube Aspirin 325 mg 08/20/19 10:00 08/25/19 15:54 Ecotrin PO Not Given QDAY SHARON Carvedilol 3.125 mg 08/20/19 22:00 08/25/19 21:31 Coreg PO 3.125 mg BID SHARON Administration Clopidogrel Bisulfate 75 mg 08/20/19 10:00 08/25/19 15:54 Plavix PO Not Given QDAY [facility] Epoetin Rahul 10,000 unit 08/25/19 09:32 Procrit IV DESIRAE PRN hemodialysis Famotidine 20 mg 08/20/19 22:00 08/25/19 15:54 Pepcid IV Not Given DAILY [facility] Glimepiride 2 mg 08/20/19 10:00 08/25/19 15:52 Amaryl PO Not Given QDDIAB SHARON Heparin Sodium (Porcine) 5,000 unit 08/24/19 22:00 08/25/19 21:32 Heparin SUB-Q 5,000 unit Q12HR SHARON Administration Heparin Sodium (Porcine) 5,000 unit 08/25/19 09:32 Heparin IV DESIRAE PRN hemodialysis Hydralazine HCl 10 mg 08/20/19 09:00 Apresoline IV Q4HR PRN Hypertension Cefepime HCl 2 gm in 100 mls @ 200 mls/hr 08/22/19 08:00 08/25/19 15:55 Cefepime/Ns 2 Gm/100 Ml IV Not Given Q24H SHARON Protocol Sodium Bicarbonate 150 meq/ 1,150 mls @ 100 mls/hr 08/22/19 09:00 08/25/19 05:38 Dextrose IV 100 mls/hr DIRECT SHARON Administration Sodium Chloride 100 mls @ 999 mls/hr 08/25/19 09:32 Nacl 0.9% IV DESIRAE PRN Hypotension Insulin Human Lispro 0 unit 08/20/19 22:00 08/26/19 05:47 Humalog SUB-Q 2 unit ACHS SHARON Administration Protocol Levetiracetam 1,500 mg 08/23/19 22:00 08/25/19 21:32 Keppra FEEDTUBE 1,500 mg BID SHARON Administration Nitroglycerin 0.4 mg 08/20/19 19:00 Nitrostat SL .Q5MIN PRN Chest Pain Oxycodone/Acetaminophen 1 tab 08/21/19 20:37 08/23/19 21:30 Percocet 5/325 PO 1 tab Q6H PRN Administration Pain, Moderate (4-6) Simple Syrup 15 ml 08/23/19 14:47 Simple Syrup FEEDTUBE PRN PRN Hypoglycemia Simple Syrup 30 ml 08/23/19 14:47 Simple Syrup FEEDTUBE PRN PRN Hypoglycemia Sodium Bicarbonate 325 mg 08/23/19 14:47 Sodium Bicarbonate FEEDTUBE PRN PRN For Clogged Feeding Tube
[2019-08-26] MEDS ORDERED: PANTOPRAZOLE 40 MG INJ IV SCH (10:00)
[2019-08-26] MEDS ORDERED: SODIUM CHLORIDE*PRIMING MACHINE ONLY FOR DIALYSIS MC ONE (10:23)
[2019-08-26] MEDS: EPOETIN ALFA 10,000 UNIT/1 ML INJ IV PRN (10:29)
--- NOTE | 2019-08-26 12:50 | Gastroenterology Progress Note ---
Assessment and Plan 1.Transaminitis -INR 1.32-trending down -AST/ALT stable (T.stephanie and alk phos WNL) -acute hepatitis panel negative -abd CT showed sludge in gallbladder with no acute cholecystitis or biliary ductal dilatation; liver normal -abd U/S showed sludge vs tiny stones in gallbladder and CBC dilated to 10.9 mm but no obstruction lesion seen -MR/MRCP unable to be done due to AICD -etiology-likely 2/2 rhabdomyolysis -suspect w/ improved primary process LFT's will also improve -Rhabdo management per primary team -avoid hepatotoxic agents -continue to trend labs and supportive care 2.Acute kidney failure 3.severe hypokalemia 4.NSTEMI 5.CAD 6.cardiomyopathy (s/p ICD; resolving; EF 55%) 7.metabolic acidosis 8.DM 9.dyslipidemia 10.HTN Subjective Date of service: 08/26/19 Principal diagnosis: transaminitis Interval history: No acute distress. Tolerating TFs. Objective - Constitutional Vitals: Temp Pulse Resp BP Pulse Ox 98.3 F 81 16 130/83 100 08/26/19 09:15 08/26/19 11:45 08/26/19 09:15 08/26/19 11:45 08/26/19 07:36 General appearance: no acute distress, other (lethargic) - Respiratory Respiratory effort: normal Respiratory: bilateral: diminished - Cardiovascular Rhythm: regular - Gastrointestinal General gastrointestinal: Present: soft, non-distended, normal bowel sounds - Integumentary Integumentary: Present: warm - Neurologic Neurological: other (unable to assess) - Labs CBC & Chem 7: 08/26/19 05:49 08/26/19 05:49 Labs: Laboratory Results - last 24 hr 08/21/19 08/21/19 08/25/19 08:51 08:51 17:25 WBC RBC Hgb Hct MCV MCH MCHC RDW Plt Count Lymph % (Auto) Collier % (Auto) Eos % (Auto) Baso % (Auto) Lymph # Collier # Eos # Baso # Seg Neutrophils % Seg Neutrophils # Sodium Potassium Chloride Carbon Dioxide Anion Gap BUN Creatinine Estimated GFR BUN/Creatinine Ratio Glucose POC Glucose 238 H Calcium Total Bilirubin AST ALT Alkaline Phosphatase Ammonia Total Creatine Kinase Total Protein Albumin Albumin/Globulin Ratio Complement C3 136 Complement C4 46 Hep Bs Antigen Hepatitis C Antibody 08/25/19 08/26/19 08/26/19 22:30 05:49 05:49 WBC 11.5 H RBC 3.06 L Hgb 9.5 L Hct 27.8 L MCV 91 MCH 31 MCHC 34 RDW 14.2 Plt Count 138 L Lymph % (Auto) 6.1 L Collier % (Auto) 10.5 H Eos % (Auto) 0.3 Baso % (Auto) 0.2 Lymph # 0.7 L Collier # 1.2 H Eos # 0.0 Baso # 0.0 Seg Neutrophils % 82.9 H Seg Neutrophils # 9.2 H Sodium 139 Potassium 4.2 Chloride 99.4 Carbon Dioxide 25 D Anion Gap 19 BUN 55 H Creatinine 5.5 H Estimated GFR 9 BUN/Creatinine Ratio 10 Glucose 279 H POC Glucose 168 H Calcium 8.6 Total Bilirubin 0.30 AST 462 H ALT 229 H Alkaline Phosphatase 69 Ammonia Total Creatine Kinase 24387 H Total Protein 5.1 L Albumin 2.0 L Albumin/Globulin Ratio 0.6 Complement C3 Complement C4 Hep Bs Antigen Hepatitis C Antibody 08/26/19 08/26/19 08/26/19 05:49 05:49 05:49 WBC RBC Hgb Hct MCV MCH MCHC RDW Plt Count Lymph % (Auto) Collier % (Auto) Eos % (Auto) Baso % (Auto) Lymph # Collier # Eos # Baso # Seg Neutrophils % Seg Neutrophils # Sodium Potassium Chloride Carbon Dioxide Anion Gap BUN Creatinine Estimated GFR BUN/Creatinine Ratio Glucose POC Glucose Calcium Total Bilirubin AST ALT Alkaline Phosphatase Ammonia 35.0 Total Creatine Kinase Total Protein Albumin Albumin/Globulin Ratio Complement C3 Complement C4 Hep Bs Antigen Non-reactive Hepatitis C Antibody Non-reactive 08/26/19 08/26/19 07:43 12:43 WBC RBC Hgb Hct MCV MCH MCHC RDW Plt Count Lymph % (Auto) Collier % (Auto) Eos % (Auto) Baso % (Auto) Lymph # Collier # Eos # Baso # Seg Neutrophils % Seg Neutrophils # Sodium Potassium Chloride Carbon Dioxide Anion Gap BUN Creatinine Estimated GFR BUN/Creatinine Ratio Glucose POC Glucose 308 H 224 H Calcium Total Bilirubin AST ALT Alkaline Phosphatase Ammonia Total Creatine Kinase Total Protein Albumin Albumin/Globulin Ratio Complement C3 Complement C4 Hep Bs Antigen Hepatitis C Antibody
[2019-08-26] MEDS: CEFEPIME/NS 2 GM/100 ML 2 GM/100 ML BAG IV SCH (14:37)
[2019-08-26] MEDS: GLIMEPIRIDE 2 MG TAB PO SCH (14:37)
[2019-08-26] MEDS: carvediloL 3.125 MG TAB PO SCH ×2 (14:38→21:00)
[2019-08-26] MEDS: HEPARIN 5,000 UNIT/1 ML VIAL SUB-Q SCH ×2 (14:38→21:00)
[2019-08-26] MEDS: ASPIRIN EC 325 MG TAB PO SCH (14:39)
[2019-08-26] MEDS: FAMOTIDINE 20 MG/2 ML INJ IV SCH (14:42)
[2019-08-26] MEDS: levETIRAcetam 500 MG/5 ML ORAL LIQD FEEDTUBE SCH (14:42)
[2019-08-26] MEDS: CLOPIDOGREL 75 MG TAB PO SCH (14:43)
[2019-08-26] MEDS: ALPRAZolam 0.5 MG TAB PO SCH ×2 (14:43→21:00)
--- NOTE | 2019-08-26 16:43 | Progress Note ---
Assessment and Plan /Metabolic encephalopathy; multifactorial Uremia, transaminitis, acidosis, advanced age Patient is lethargic, Dobbhoff in place For medications and tube feeding cont supportive care /Transaminitis; unknown etiology Hepatitis panel negative, no stone in abdominal ultrasound + biliary sludge, no cholecystitis, dilated common bile duct GI following, unable to do MRI due to ICD Management supportive per GI /Rhabdomyolysis; likely from statin CK trending down from CK 20,089 -16,345 viigorous IV hydration,Monitor renal function, input output, Hold statin, nephrology following, also getting HD /Acute kidney injury; likely ATN Worsening renal function, nephrology following - on HD now /Metabolic acidosis:due acute kidney injury, mgt per neurology - on hCO3 drip /Severe hypokalemia; Closely monitor electrolytes and replete as needed /Non-ST elevation UT; In the setting of acute renal failure and acute rhabdo could be NSTEMI 2 However patient has risk factors, coronary artery disease - status post PCI in 2013 monitore with Serial cardiac enzymes, antiplatelets, beta-blockers echocardiogram, Cardiology evaluated - no cardiac work-up intended /Coronary artery disease status post PCI /ICD in place; monitor, cardiology evaluation if needed /Dyslipidemia; hold statin in view of rhabdo/transaminitis /Type 2 diabetes mellitus; Accu-Chek sliding scale coverage ADA diet, insulin as needed /History of seizure disorder; seizure precautions Continue Keppra /Hypertension; moderate control Continue current antihypertensives and PRN medications --DVT prophylaxis; heparin renal dose --DNR Patient has multiple medical problems involving multiple organs, Metabolic encephalopathy secondary to uremia liver failure, Dementia, rhabdomyolysis, metabolic acidosis, Patient is critically ill, family aware, Nephrology, GI ca rdiology evaluated the patient Remains critically ill.Very poor prognosis, discussed with the Son Brief history; 84-year-old -[place] female patient with significant history of hypertension ,diabetes mellitus, coronary artery disease status post PCI ,CVA and seizure disorder Presented to the emergency room with complaints of generalized weakness, work-up is consistent with acute renal failure, acute liver failure, severe rhabdomyolysis, non-ST elevation UT, severe metabolic encephalopathy, multiple specialists are following the patient Nephrology initiated hemodialysis today. Very poor prognosis, after discussing extensively about the goals of treatment and CODE STATUS Patient's daughter and son requested DNR status. Advised to continue all the treatment. Important active issues: 1. Worsening renal function; nephrology initiated hemodialysis 2. Severe rhabdomyolysis; with renal and liver failure 3. Acute liver failure/transaminitis 4. Non-ST elevation UT; 5. Acute encephalopathy Hospitalist Physical General appearance: Present: mild distress, well-nourished, other (Lethargic) - EENT Eyes: Present: PERRL, EOM intact - Neck Neck: Present: supple, normal ROM - Respiratory Respiratory effort: labored Respiratory: bilateral: diminished, rhonchi, negative: rales, wheezing - Cardiovascular Rhythm: regular Heart Sounds: Present: S1 & S2 - Extremities Extremities: no ischemia Extremity abnormal: edema - Abdominal General gastrointestinal: soft, non-tender, non-distended, normal bowel sounds - Integumentary Integumentary: Present: clear, warm - Psychiatric Psychiatric: other (unable to assess) - Neurologic Neurologic: other (Noncommunicative) Subjective Date of service: 08/26/19 Principal diagnosis: transaminitis Interval history: Patient seen and examined Patient appears lethargic, discussed with patient's Son at bedside her CPK remained elevated, started on HD - if her mental status does not improve then family benntet snot want to proceed with long tern HD Objective - Constitutional Vitals: Vital Signs - 12hr 08/26/19 08/26/19 08/26/19 07:36 09:15 09:30 Temperature 98.9 F 98.3 F Pulse Rate 76 71 71 Respiratory 20 16 Rate Blood Pressure 178/69 164/70 164/70 O2 Sat by Pulse 100 Oximetry 08/26/19 08/26/19 08/26/19 09:45 10:00 10:15 Temperature Pulse Rate 70 70 72 Respiratory Rate Blood Pressure 157/70 158/65 141/72 O2 Sat by Pulse Oximetry 08/26/19 08/26/19 08/26/19 10:30 10:45 11:00 Temperature Pulse Rate 80 75 73 Respiratory Rate Blood Pressure 190/82 146/73 123/64 O2 Sat by Pulse Oximetry 08/26/19 08/26/19 08/26/19 11:15 11:30 11:45 Temperature Pulse Rate 89 74 81 Respiratory Rate Blood Pressure 150/86 126/50 130/83 O2 Sat by Pulse Oximetry 08/26/19 08/26/19 08/26/19 12:00 12:34 14:09 Temperature 98.3 F 97.7 F Pulse Rate 83 72 73 Respiratory 18 16 Rate Blood Pressure 125/70 136/53 154/61 O2 Sat by Pulse 96 Oximetry 08/26/19 08/26/19 14:38 16:07 Temperature 98.4 F Pulse Rate 73 81 Respiratory 20 Rate Blood Pressure 154/61 137/40 O2 Sat by Pulse 94 Oximetry - Labs CBC & Chem 7: 08/31/19 10:57 08/31/19 09:47 Labs: Abnormal lab results 08/25/19 08/25/19 08/26/19 Range/Units 17:25 22:30 05:49 WBC 11.5 H (4.5-11.0) K/mm3 RBC 3.06 L (3.65-5.03) M/mm3 Hgb 9.5 L (10.1-14.3) gm/dl Hct 27.8 L (30.3-42.9) % Plt Count 138 L (140-440) K/mm3 Lymph % (Auto) 6.1 L (13.4-35.0) % Dickinson % (Auto) 10.5 H (0.0-7.3) % Lymph # 0.7 L (1.2-5.4) K/mm3 Dickinson # 1.2 H (0.0-0.8) K/mm3 Seg Neutrophils % 82.9 H (40.0-70.0) % Seg Neutrophils # 9.2 H (1.8-7.7) K/mm3 BUN (7-17) mg/dL Creatinine (0.7-1.2) mg/dL Glucose (65-100) mg/dL POC Glucose 238 H 168 H (70-105) AST (5-40) units/L ALT (7-56) units/L Total Creatine Kinase (30-135) units/L Total Protein (6.3-8.2) g/dL Albumin (3.9-5) g/dL 08/26/19 08/26/19 08/26/19 Range/Units 05:49 07:43 12:43 WBC (4.5-11.0) K/mm3 RBC (3.65-5.03) M/mm3 Hgb (10.1-14.3) gm/dl Hct (30.3-42.9) % Plt Count (140-440) K/mm3 Lymph % (Auto) (13.4-35.0) % Dickinson % (Auto) (0.0-7.3) % Lymph # (1.2-5.4) K/mm3 Dickinson # (0.0-0.8) K/mm3 Seg Neutrophils % (40.0-70.0) % Seg Neutrophils # (1.8-7.7) K/mm3 BUN 55 H (7-17) mg/dL Creatinine 5.5 H (0.7-1.2) mg/dL Glucose 279 H (65-100) mg/dL POC Glucose 308 H 224 H (70-105) AST 462 H (5-40) units/L ALT 229 H (7-56) units/L Total Creatine Kinase 27694 H (30-135) units/L Total Protein 5.1 L (6.3-8.2) g/dL Albumin 2.0 L (3.9-5) g/dL 08/26/19 Range/Units 16:14 WBC (4.5-11.0) K/mm3 RBC (3.65-5.03) M/mm3 Hgb (10.1-14.3) gm/dl Hct (30.3-42.9) % Plt Count (140-440) K/mm3 Lymph % (Auto) (13.4-35.0) % Dickinson % (Auto) (0.0-7.3) % Lymph # (1.2-5.4) K/mm3 Dickinson # (0.0-0.8) K/mm3 Seg Neutrophils % (40.0-70.0) % Seg Neutrophils # (1.8-7.7) K/mm3 BUN (7-17) mg/dL Creatinine (0.7-1.2) mg/dL Glucose (65-100) mg/dL POC Glucose 269 H (70-105) AST (5-40) units/L ALT (7-56) units/L Total Creatine Kinase (30-135) units/L Total Protein (6.3-8.2) g/dL Albumin (3.9-5) g/dL
[2019-08-26] MEDS: oxyCODONE /ACETAMINOPHEN 5-325MG TAB PO PRN (23:23)
[2019-08-26] MEDS: SODIUM BICARBONATE 150 MEQ in DEXTROSE 5% IN WATER 1,000 ML IV SCH (23:26)
[2019-08-27] MEDS: levETIRAcetam 500 MG/5 ML ORAL LIQD FEEDTUBE SCH ×3 (03:55→21:49)
[2019-08-27 06:25] LABS: INR 1.44 (0.87-1.13)
[2019-08-27 06:29] LABS: Calcium 8.3 mg/dL (8.4-10.2)
[2019-08-27] MEDS: INSULIN LISPRO 100 UNIT/ML SUB-Q SCH ×4 (08:54→21:47)
[2019-08-27] MEDS: GLIMEPIRIDE 2 MG TAB PO SCH (08:55)
--- NOTE | 2019-08-27 11:14 | Gastroenterology Progress Note ---
Assessment and Plan 1.Transaminitis -INR 1.44-trend up -AST 598/ALT 281 (T.stephanie and alk phos WNL) -acute hepatitis panel negative -abd CT showed sludge in gallbladder with no acute cholecystitis or biliary ductal dilatation; liver normal -abd U/S showed sludge vs tiny stones in gallbladder and CBC dilated to 10.9 mm but no obstruction lesion seen -MR/MRCP unable to be done due to AICD -etiology-likely 2/2 rhabdomyolysis -suspect w/ improved primary process LFT's will also improve -Rhabdo management per primary team -avoid hepatotoxic agents -vitamin K challenge today -continue to trend labs (repeat INR in am) and supportive care -poor prognosis -DNR status decided per family yesterday 2.Acute kidney failure 3.severe hypokalemia 4.NSTEMI 5.CAD 6.cardiomyopathy (s/p ICD; resolving; EF 55%) 7.metabolic acidosis 8.DM 9.dyslipidemia 10.HTN Subjective Date of service: 08/27/19 Principal diagnosis: transaminitis Interval history: No acute distress. Objective - Constitutional Vitals: Temp Pulse Resp BP Pulse Ox 97.7 F 69 16 138/57 94 08/27/19 09:00 08/27/19 10:15 08/27/19 09:00 08/27/19 10:15 08/27/19 08:12 General appearance: no acute distress, other (lethargic) - Respiratory Respiratory: bilateral: diminished - Cardiovascular Rhythm: regular - Gastrointestinal General gastrointestinal: Present: soft, non-distended, normal bowel sounds - Integumentary Integumentary: Present: warm - Neurologic Neurological: other (unable to assess) - Labs CBC & Chem 7: 08/26/19 05:49 08/27/19 05:14 Labs: Laboratory Results - last 24 hr 08/26/19 08/26/19 08/26/19 12:43 16:14 20:28 PT INR Sodium Potassium Chloride Carbon Dioxide Anion Gap BUN Creatinine Estimated GFR BUN/Creatinine Ratio Glucose POC Glucose 224 H 269 H 312 H Calcium Total Bilirubin AST ALT Alkaline Phosphatase Total Creatine Kinase Total Protein Albumin Albumin/Globulin Ratio 08/27/19 08/27/19 08/27/19 05:14 05:14 08:25 PT 17.8 H INR 1.44 H Sodium 140 Potassium 3.9 Chloride 96.5 L Carbon Dioxide 28 Anion Gap 19 BUN 49 H Creatinine 4.4 H Estimated GFR 12 BUN/Creatinine Ratio 11 Glucose 309 H POC Glucose 324 H Calcium 8.3 L Total Bilirubin 0.30 AST 598 H ALT 281 H Alkaline Phosphatase 75 Total Creatine Kinase 34814 H Total Protein 5.1 L Albumin 2.0 L Albumin/Globulin Ratio 0.6
[2019-08-27] MEDS ORDERED: PHYTONADIONE(ADULT ONLY) 10 MG in SODIUM CHLORIDE 0.9% 50 ML IV ONE (11:52)
[2019-08-27] MEDS: carvediloL 3.125 MG TAB PO SCH ×2 (12:33→22:02)
[2019-08-27] MEDS: ASPIRIN EC 325 MG TAB PO SCH (12:33)
[2019-08-27] MEDS: CLOPIDOGREL 75 MG TAB PO SCH (12:33)
[2019-08-27] MEDS: ALPRAZolam 0.5 MG TAB PO SCH ×2 (12:33→21:49)
[2019-08-27] MEDS: HEPARIN 5,000 UNIT/1 ML VIAL SUB-Q SCH ×2 (12:34→21:49)
[2019-08-27] MEDS: FAMOTIDINE 20 MG/2 ML INJ IV SCH (12:36)
--- NOTE | 2019-08-27 12:51 | Progress Note ---
Assessment and Plan - Patient Problems (1) Acute kidney injury (JULIANO) with acute tubular necrosis (ATN) Current Visit: Yes Status: Acute Plan to address problem: Acute tubular necrosis secondary to rhabdomyolysis. Status post hemodialysis yesterday with improvement in renal indices and some improvement in mental status yet. Being dialyzed again today. Not concerned about possible stroke giving the dysphasia and focal findings. Patient is scheduled for a CT scan of the head (2) Anemia Current Visit: Yes Status: Acute Plan to address problem: Erythropoietin on dialysis and follow-up hemoglobin (3) Acute renal failure due to rhabdomyolysis Current Visit: Yes Status: Acute Plan to address problem: Probably statin induced. Statin has been stopped. CPK is not significantly changed. Follow-up CPK in the morning (4) Transaminasemia Current Visit: Yes Status: Acute Plan to address problem: Liver function tests not significantly changed. Follow-up liver function test off of statin (5) Hypertensive chronic kidney disease with stage 1 through stage 4 chronic kidney disease, or unspecified chronic kidney disease Current Visit: Yes Status: Acute Plan to address problem: Blood pressure is controlled. Follow-up blood pressure on current medications (6) Metabolic acidosis Current Visit: Yes Status: Acute Plan to address problem: Improved back to normal with dialysis. (7) Type 2 diabetes mellitus with diabetic chronic kidney disease Current Visit: Yes Status: Chronic Plan to address problem: Blood sugar control by primary attending Subjective Date of service: 08/27/19 Principal diagnosis: transaminitis Interval history: Patient seen lying in bed on dialysis. She is tolerating treatment so far. She is more awake. Blood pressure 151/75 pulse 78 ultrafiltration 1.5 L daily 300/600. She has an NG tube intact. Objective - Exam Narrative Exam: Elderly -Turkish female lying in bed in no acute distress HEENT: NCAT, nasogastric tube intact Neck: Supple, no venous distention CVS: S1S2 RRR with no murmur, rub or gallop Chest: Clear to auscultation but diminished breath sounds in lower zones Abdomen: Protuberant, soft, nontender, no organomegaly, bowel sounds are present Extremities: Mild edema Genitourinary deferred Neuro: Awake, making incomprehensible sounds, not following commands - Vital Signs Vital signs: Vital Signs - 12hr 08/27/19 08/27/19 08/27/19 04:00 06:17 08:12 Temperature 98.3 F 98.2 F Pulse Rate 68 67 67 Respiratory 18 18 Rate Blood Pressure Blood Pressure 137/54 184/72 [Right] O2 Sat by Pulse 99 94 Oximetry 08/27/19 08/27/19 08/27/19 09:00 09:10 09:15 Temperature 97.7 F Pulse Rate 71 71 70 Respiratory 16 Rate Blood Pressure 136/60 136/60 147/61 Blood Pressure [Right] O2 Sat by Pulse Oximetry 08/27/19 08/27/19 08/27/19 09:30 09:45 10:00 Temperature Pulse Rate 69 71 70 Respiratory Rate Blood Pressure 136/62 139/65 124/56 Blood Pressure [Right] O2 Sat by Pulse Oximetry 08/27/19 08/27/19 08/27/19 10:15 10:30 10:45 Temperature Pulse Rate 69 70 72 Respiratory Rate Blood Pressure 138/57 128/67 124/61 Blood Pressure [Right] O2 Sat by Pulse Oximetry 08/27/19 08/27/19 08/27/19 11:00 11:15 11:33 Temperature Pulse Rate 74 76 78 Respiratory Rate Blood Pressure 136/60 131/66 151/75 Blood Pressure [Right] O2 Sat by Pulse Oximetry 08/27/19 12:33 Temperature Pulse Rate 71 Respiratory Rate Blood Pressure 139/46 Blood Pressure [Right] O2 Sat by Pulse Oximetry - Lab 08/26/19 05:49 08/27/19 05:14 Most recent lab results Calcium 8.3 mg/dL (8.4-10.2) L 08/27/19 05:14 Magnesium 2.00 mg/dL (1.7-2.3) 08/25/19 07:01 Urine Creatinine 102.1 mg/dL (0.1-20.0) H 08/21/19 20:00 Urine Sodium 44 mmol/L 08/21/19 10:06 Urine Total Protein 176 mg/dL (5-11.8) H 08/21/19 20:00 Medications & Allergies - Medications Allergies/Adverse Reactions: Allergies No Known Allergies Allergy (Verified 11/29/13 10:39) Home Medications: Home Medications Medication Instructions Recorded Confirmed Last Taken Type ALPRAZolam [Xanax TAB] 0.5 mg PO BID 03/21/13 08/20/19 01/29/14 History Amlodipine Bes/Olmesartan Med 2.5 mg PO QDAY 03/21/13 08/20/19 1 Day Ago History [Shekhar 10-20 mg] ~08/19/19 Glimepiride [Amaryl] 2 mg PO QAM 03/21/13 08/20/19 1 Day Ago History ~08/19/19 2 mg Losartan [Cozaar] 25 mg PO QDAY 03/21/13 08/20/19 1 Day Ago History ~08/19/19 25 mg Atorvastatin [Lipitor] 40 mg PO QHS 11/13/13 08/20/19 01/29/14 History Oxycodone HCl/Acetaminophen 1 each PO Q6HR PRN #20 tablet 11/29/13 08/20/19 01/30/14 Rx [Percocet 7.5/325 mg] Aspirin EC [Ecotrin] 325 mg PO QDAY #30 tablet 02/08/14 08/20/19 Unknown Rx Clopidogrel [Plavix] 75 mg PO QDAY #30 tablet 02/08/14 08/20/19 Unknown Rx Pantoprazole [Protonix TAB] 40 mg PO QDAY #30 tablet 02/08/14 08/20/19 1 Day Ago Rx ~08/19/19 40 mg carvediloL [Coreg] 3.125 mg PO BID #60 tablet 02/08/14 08/20/19 Unknown Rx levETIRAcetam [Keppra TAB] 1,500 mg PO BID 08/20/19 08/20/19 Unknown History Citalopram [celeXA] 40 mg PO QDAY 08/22/19 08/22/19 Unknown History Active Medications: Generic Name Dose Route Start Last Admin Trade Name Freq PRN Reason Stop Dose Admin Alprazolam 0.5 mg 08/20/19 10:00 08/27/19 12:33 Xanax PO 0.5 mg BID SHARON Administration Lipase/Protease/Amylase 1 each 08/23/19 14:[address] 10,500 Unit FEEDTUBE PRN PRN For Clogged Feeding Tube Aspirin 325 mg 08/20/19 10:00 08/27/19 12:33 Ecotrin PO 325 mg QDAY SHARON Administration Carvedilol 3.125 mg 08/20/19 22:00 08/27/19 12:33 Coreg PO 3.125 mg BID SHARON Administration Clopidogrel Bisulfate 75 mg 08/20/19 10:00 08/27/19 12:33 Plavix PO 75 mg QDAY SHARON Administration Epoetin Rahul 10,000 unit 08/25/19 09:32 08/26/19 10:29 Procrit IV 10,000 unit DESIRAE PRN Administration hemodialysis Famotidine 20 mg 08/20/19 22:00 08/27/19 12:36 Pepcid IV 20 mg DAILY SHARON Administration Glimepiride 2 mg 08/20/19 10:00 08/27/19 08:55 Amaryl PO 2 mg QDDIAB SHARON Administration Heparin Sodium (Porcine) 5,000 unit 08/24/19 22:00 08/27/19 12:34 Heparin SUB-Q 5,000 unit Q12HR SHARON Administration Heparin Sodium (Porcine) 5,000 unit 08/25/19 09:32 Heparin IV DESIRAE PRN hemodialysis Hydralazine HCl 10 mg 08/20/19 09:00 08/26/19 20:15 Apresoline IV 10 mg Q4HR PRN Administration Hypertension Sodium Bicarbonate 150 meq/ 1,150 mls @ 100 mls/hr 08/22/19 09:00 08/26/19 23:26 Dextrose IV 100 mls/hr DIRECT SHARON Administration Sodium Chloride 100 mls @ 999 mls/hr 08/25/19 09:32 Nacl 0.9% IV DESIRAE PRN Hypotension Insulin Human Lispro 0 unit 08/20/19 22:00 08/27/19 12:35 Humalog SUB-Q 6 unit ACHS SHARON Administration Protocol Levetiracetam 1,500 mg 08/23/19 22:00 08/27/19 12:33 Keppra FEEDTUBE 1,500 mg BID SHARON Administration Nitroglycerin 0.4 mg 08/20/19 19:00 Nitrostat SL .Q5MIN PRN Chest Pain Oxycodone/Acetaminophen 1 tab 08/21/19 20:37 08/26/19 23:23 Percocet 5/325 PO 1 tab Q6H PRN Administration Pain, Moderate (4-6) Simple Syrup 15 ml 08/23/19 14:47 Simple Syrup FEEDTUBE PRN PRN Hypoglycemia Simple Syrup 30 ml 08/23/19 14:47 Simple Syrup FEEDTUBE PRN PRN Hypoglycemia Sodium Bicarbonate 325 mg 08/23/19 14:47 Sodium Bicarbonate FEEDTUBE PRN PRN For Clogged Feeding Tube
[2019-08-27] MEDS: SODIUM BICARBONATE 150 MEQ in DEXTROSE 5% IN WATER 1,000 ML IV SCH (14:41)
--- NOTE | 2019-08-27 16:18 | Progress Note ---
Assessment and Plan /Metabolic encephalopathy; multifactorial Uremia, transaminitis, acidosis, advanced age Patient is lethargic, Dobbhoff in place For medications and tube feeding cont supportive care, Plan to repeat CT head if in casr she had any acute CVA as cannot do MRI with h/o ICD /Transaminitis; unknown etiology Hepatitis panel negative, no stone in abdominal ultrasound + biliary sludge, no cholecystitis, dilated common bile duct GI following, unable to do MRI due to ICD Management supportive per GI /Rhabdomyolysis; likely from statin CpK trending up viigorous IV hydration,Monitor renal function, input output, Hold statin, nephrology following, also getting HD /Acute kidney injury; likely ATN Worsening renal function, nephrology following - on HD now /Metabolic acidosis:due acute kidney injury, mgt per neurology - on hCO3 drip /Severe hypokalemia; Closely monitor electrolytes and replete as needed /Non-ST elevation [place]; In the setting of acute renal failure and acute rhabdo could be NSTEMI 2 However patient has risk factors, coronary artery disease - status post PCI in 2013 monitore with Serial cardiac enzymes, antiplatelets, beta-blockers echocardiogram, Cardiology evaluated - no cardiac work-up intended /Coronary artery disease status post PCI /ICD in place; monitor, cardiology evaluation if needed /Dyslipidemia; hold statin in view of rhabdo/transaminitis /Type 2 diabetes mellitus; Accu-Chek sliding scale coverage ADA diet, insulin as needed /History of seizure disorder; seizure precautions Continue Keppra /Hypertension; moderate control Continue current antihypertensives and PRN medications --DVT prophylaxis; heparin renal dose --DNR Patient has multiple medical problems involving multiple organs, Metabolic encephalopathy secondary to uremia liver failure, Dementia, rhabdomyolysis, metabolic acidosis, Patient is critically ill, family aware, Nephrology, GI cardiology evaluated the patient Remains critically ill.Very poor prognosis, discussed with the Son Brief history; 84-year-old -[place]ir[place] female patient with significant history of hypertension ,diabetes mellitus, coronary artery disease status post PCI ,CVA and seizure disorder Presented to the emergency room with complaints of generalized weakness, work-up is consistent with acute renal failure, acute liver failure, severe rhabdomyolysis, non-ST elevation [place], severe metabolic encephalopathy, multiple specialists are following the patient Nephrology initiated hemodialysis today. Very poor prognosis, after discussing extensively about the goals of treatment and CODE STATUS Patient's daughter and son requested DNR status. Advised to continue all the treatment. Important active issues: 1. Worsening renal function; nephrology initiated hemodialysis 2. Severe rhabdomyolysis; with renal and liver failure 3. Acute liver failure/transaminitis 4. Non-ST elevation [place]; 5. Acute encephalopathy Hospitalist Physical General appearance: Present: mild distress, well-nourished, other (Lethargic) - EENT Eyes: Present: PERRL, EOM intact - Neck Neck: Present: supple, normal ROM - Respiratory Respiratory effort: labored Respiratory: bilateral: diminished, rhonchi, negative: rales, wheezing - Cardiovascular Rhythm: regular Heart Sounds: Present: S1 & S2 - Extremities Extremities: no ischemia Extremity abnormal: edema - Abdominal General gastrointestinal: soft, non-tender, non-distended, normal bowel sounds - Integumentary Integumentary: Present: clear, warm - Psychiatric Psychiatric: other (unable to assess) - Neurologic Neurologic: other (Noncommunicative) Subjective Date of service: 08/27/19 Principal diagnosis: transaminitis Interval history: Patient seen and examined Patient appears lethargic, discussed with patient's Son at bedside her CPK remained elevated, started on HD - if her mental status does not improve then family bennett pamela want to proceed with long tern HD Plan for repeat CT head to further assess Objective - Constitutional Vitals: Vital Signs - 12hr 08/27/19 08/27/19 08/27/19 06:17 08:12 09:00 Temperature 98.3 F 98.2 F 97.7 F Pulse Rate 67 67 71 Respiratory 18 18 16 Rate Blood Pressure 136/60 Blood Pressure 137/54 184/72 [Right] O2 Sat by Pulse 99 94 Oximetry 08/27/19 08/27/19 08/27/19 09:10 09:15 09:30 Temperature Pulse Rate 71 70 69 Respiratory Rate Blood Pressure 136/60 147/61 136/62 Blood Pressure [Right] O2 Sat by Pulse Oximetry 08/27/19 08/27/19 08/27/19 09:45 10:00 10:15 Temperature Pulse Rate 71 70 69 Respiratory Rate Blood Pressure 139/65 124/56 138/57 Blood Pressure [Right] O2 Sat by Pulse Oximetry 08/27/19 08/27/19 08/27/19 10:30 10:45 11:00 Temperature Pulse Rate 70 72 74 Respiratory Rate Blood Pressure 128/67 124/61 136/60 Blood Pressure [Right] O2 Sat by Pulse Oximetry 08/27/19 08/27/19 08/27/19 11:15 11:33 11:40 Temperature Pulse Rate 76 78 70 Respiratory Rate Blood Pressure 131/66 151/75 153/66 Blood Pressure [Right] O2 Sat by Pulse Oximetry 08/27/19 08/27/19 12:33 12:59 Temperature 98.3 F Pulse Rate 71 70 Respiratory 16 Rate Blood Pressure 139/46 147/63 Blood Pressure [Right] O2 Sat by Pulse Oximetry - Labs CBC & Chem 7: 08/31/19 10:57 08/31/19 09:47 Labs: Abnormal lab results 08/26/19 08/26/19 08/27/19 Range/Units 16:14 20:28 05:14 PT (12.2-14.9) Sec. INR (0.87-1.13) Chloride 96.5 L (98-107) mmol/L BUN 49 H (7-17) mg/dL Creatinine 4.4 H (0.7-1.2) mg/dL Glucose 309 H (65-100) mg/dL POC Glucose 269 H 312 H (70-105) Calcium 8.3 L (8.4-10.2) mg/dL AST 598 H (5-40) units/L ALT 281 H (7-56) units/L Total Creatine Kinase 64566 H (30-135) units/L Total Protein 5.1 L (6.3-8.2) g/dL Albumin 2.0 L (3.9-5) g/dL 08/27/19 08/27/19 08/27/19 Range/Units 05:14 08:25 12:26 PT 17.8 H (12.2-14.9) Sec. INR 1.44 H (0.87-1.13) Chloride (98-107) mmol/L BUN (7-17) mg/dL Creatinine (0.7-1.2) mg/dL Glucose (65-100) mg/dL POC Glucose 324 H 300 H (70-105) Calcium (8.4-10.2) mg/dL AST (5-40) units/L ALT (7-56) units/L Total Creatine Kinase (30-135) units/L Total Protein (6.3-8.2) g/dL Albumin (3.9-5) g/dL
[2019-08-27] MEDS: INSULIN NPH, HUMAN 100 UNIT/1 ML SUB-Q SCH (17:00)
--- NOTE | 2019-08-27 19:32 | Cat Scan Report ---
CT head/brain wo con INDICATION / CLINICAL INFORMATION: 84 years Female; possible cva. TECHNIQUE: Routine CT head without contrast. All CT scans at this location are performed using CT dos e reduction for ALARA by means of automated exposure control. COMPARISON: None. FINDINGS: BRAIN / INTRACRANIAL CONTENTS: No acute hemorrhage, mass effect, midline shift, hydrocephalus, or acu te, large territorial infarct. Mild cerebral and cerebellar atrophy. There are mild areas of decreased attenuation in the white matter of the cerebral hemispheres, as wel l as the gangliocapsular regions. These are nonspecific findings and may be related to microangiopath y (hypertension, diabetes, atherosclerosis), given the patient's age. It might be difficult to evalua te for small areas of ischemia without diffusion imaging by MRI. CRANIOCERVICAL JUNCTION: No significant abnormality. ORBITS: No significant abnormality of visualized orbits. SINUSES / MASTOIDS: No significant abnormality the visualized paranasal sinuses or mastoid air cells. ADDITIONAL FINDINGS: Atherosclerotic disease is seen in the anterior circulation. IMPRESSION: 1. No focal mass, hemorrhage, hydrocephalus, or acute, large territorial infarct. Signer Name: Eleno Tyler MD, III Signed: 08/27/2019 7:27 PM Workstation Name: [id number]
[2019-08-27] MEDS: oxyCODONE /ACETAMINOPHEN 5-325MG TAB PO PRN (21:49)
[2019-08-28] MEDS: SODIUM BICARBONATE 150 MEQ in DEXTROSE 5% IN WATER 1,000 ML IV SCH (02:37)
[2019-08-28 10:07] LABS: Hematocrit 28.2 % (30.3-42.9); Hemoglobin 9.4 gm/dl (10.1-14.3)
[2019-08-28 10:17] LABS: INR 1.24 (0.87-1.13)
[2019-08-28] MEDS: carvediloL 3.125 MG TAB PO SCH ×2 (10:29→21:52)
[2019-08-28] MEDS: INSULIN NPH, HUMAN 100 UNIT/1 ML SUB-Q SCH ×2 (10:30→18:00)
[2019-08-28] MEDS: FAMOTIDINE 20 MG/2 ML INJ IV SCH (10:30)
[2019-08-28] MEDS: levETIRAcetam 500 MG/5 ML ORAL LIQD FEEDTUBE SCH ×2 (10:30→21:57)
[2019-08-28] MEDS: GLIMEPIRIDE 2 MG TAB PO SCH (10:30)
[2019-08-28] MEDS: ASPIRIN EC 325 MG TAB PO SCH (10:30)
[2019-08-28] MEDS: INSULIN LISPRO 100 UNIT/ML SUB-Q SCH ×3 (10:30→18:00)
[2019-08-28] MEDS: HEPARIN 5,000 UNIT/1 ML VIAL SUB-Q SCH ×2 (10:30→21:53)
[2019-08-28] MEDS: CLOPIDOGREL 75 MG TAB PO SCH (10:31)
[2019-08-28] MEDS: ALPRAZolam 0.5 MG TAB PO SCH ×2 (10:31→21:52)
--- NOTE | 2019-08-28 10:31 | Gastroenterology Progress Note ---
Assessment and Plan 1.Transaminitis -INR 1.24-trended down s/p vit K yesterday- preserved synthetic liver function -AST 686/ALT 382 (T.stephanie and alk phos WNL) -CK trending up -acute hepatitis panel negative -abd CT showed sludge in gallbladder with no acute cholecystitis or biliary ductal dilatation; liver normal -abd U/S showed sludge vs tiny stones in gallbladder and CBC dilated to 10.9 mm but no obstruction lesion seen -MR/MRCP unable to be done due to AICD -etiology-likely 2/2 rhabdomyolysis -no evidence of liver failure -suspect w/ improved primary process LFT's will also improve -Rhabdo management per primary team -avoid hepatotoxic agents -continue to trend labs (repeat INR in am) and supportive care -poor prognosis; DNR status -no further workup recommended per GI at this time, will sign off. Please call if needed 2.Acute kidney failure 3.severe hypokalemia 4.NSTEMI 5.CAD 6.cardiomyopathy (s/p ICD; resolving; EF 55%) 7.metabolic acidosis 8.DM 9.dyslipidemia 10.HTN Subjective Date of service: 08/28/19 Principal diagnosis: transaminitis Interval history: No acute distress. Objective - Constitutional Vitals: Temp Pulse Resp BP Pulse Ox 98.0 F 74 20 146/54 97 08/28/19 04:08 08/28/19 04:08 08/28/19 04:08 08/28/19 04:08 08/28/19 04:08 General appearance: no acute distress - EENT Eyes: PERRL, EOM intact ENT: hearing intact - Respiratory Respiratory effort: normal - Cardiovascular Rhythm: regular - Gastrointestinal General gastrointestinal: Present: soft, tender (slight), non-distended, normal bowel sounds - Neurologic Neurological: alert and oriented x3 - Labs CBC & Chem 7: 08/28/19 09:40 08/28/19 09:40 Labs: Laboratory Results - last 24 hr 08/27/19 08/27/19 08/27/19 12:26 18:20 20:00 Hgb Hct Plt Count PT INR POC Glucose 300 H 230 H 238 H 08/28/19 08/28/19 08/28/19 09:40 09:40 09:57 Hgb 9.4 L Hct 28.2 L Plt Count 158 PT 15.8 H INR 1.24 H POC Glucose 231 H
[2019-08-28 10:32] LABS: Alanine Aminotransferase 382 units/L (7-56); Albumin 1.8 g/dL (3.9-5); BUN/Creatinine Ratio 15; Blood Urea Nitrogen 52 mg/dL (7-17); Calcium 8.5 mg/dL (8.4-10.2); Hemolysis Index 61
[2019-08-28 10:48] LABS: Bilirubin,Direct < 0.2 mg/dL (0-0.2)
--- NOTE | 2019-08-28 13:24 | Progress Note ---
Assessment and Plan /Metabolic encephalopathy; multifactorial Uremia, transaminitis, acidosis, advanced age Patient is lethargic but alert, Dobbhoff in place For medications and tube feeding cont supportive care, s/p repeat CT head showed no acute CVA speech eval ordered /Transaminitis; unknown etiology - trending up with normal ele Hepatitis panel negative, no stone in abdominal ultrasound + biliary sludge, no cholecystitis, dilated common bile duct GI following, unable to do MRI due to ICD Management supportive per GI /Rhabdomyolysis; likely from statin CpK trending up viigorous IV hydration,Monitor renal function, input output, Hold statin, nephrology following, also getting HD /Acute kidney injury; likely ATN Worsening renal function, nephrology following - on HD now /Metabolic acidosis:due acute kidney injury, mgt per neurology - on hCO3 drip /Severe hypokalemia; Closely monitor electrolytes and replete as needed /Non-ST elevation [place]; In the setting of acute renal failure and acute rhabdo could be NSTEMI 2 However patient has risk factors, coronary artery disease - status post PCI in 2013 monitore with Serial cardiac enzymes, antiplatelets, beta-blockers echocardiogram, Cardiology evaluated - no cardiac work-up intended /Coronary artery disease status post PCI /ICD in place; monitor, cardiology evaluation if needed /Dyslipidemia; hold statin in view of rhabdo/transaminitis /Type 2 diabetes mellitus; Accu-Chek sliding scale coverage ADA diet, insulin as needed /History of seizure disorder; seizure precautions Continue Keppra /Hypertension; moderate control Continue current antihypertensives and PRN medications --DVT prophylaxis; heparin renal dose --DNR Patient has multiple medical problems involving multiple organs, Metabolic encephalopathy secondary to uremia liver failure, Dementia, rhabdomyolysis, metabolic acidosis, Patient is critically ill, family aware, Nephrology, GI cardiology evaluated the patient Remains critically ill with poor prognosis, discussed with the Son. They want to continue HD for now as her mental status improved Brief history; 84-year-old -Syrian female patient with significant history of hypertension ,diabetes mellitus, coronary artery disease status post PCI ,CVA and seizure disorder Presented to the emergency room with complaints of generalized weakness, work-up is consistent with acute renal failure, acute liver failure, severe rhabdomyolysis, non-ST elevation [place], severe metabolic encephalopathy, multiple specialists are following the patient Nephrology initiated hemodialysis today. Very poor prognosis, after discussing extensively about the goals of treatment and CODE STATUS Patient's daughter and son requested DNR status. Advised to continue all the treatment. Important active issues: 1. Worsening renal function; nephrology initiated hemodialysis 2. Severe rhabdomyolysis; with renal and liver failure 3. Acute liver failure/transaminitis 4. Non-ST elevation [place]; 5. Acute encephalopathy Hospitalist Physical General appearance: Present: mild distress, well-nourished, other (Lethargic but makes moaning sound) - EENT Eyes: Present: PERRL, EOM intact - Neck Neck: Present: supple, normal ROM - Respiratory Respiratory effort: nonlabored Respiratory: bilateral: diminished, rhonchi, negative: rales, wheezing - Cardiovascular Rhythm: regular Heart Sounds: Present: S1 & S2 - Extremities Extremities: no ischemia Extremity abnormal: edema - Abdominal General gastrointestinal: soft, non-tender, non-distended, normal bowel sounds - Integumentary Integumentary: Present: clear, warm - Psychiatric Psychiatric: other (unable to assess) - Neurologic Neurologic: verbal, follows minor commends Subjective Date of service: 08/28/19 Principal diagnosis: transaminitis Interval history: Patient seen and examined Patient more alert and oriented today, discussed with patient's Son at bedside her CPK remained elevated, LFT trending up CT head negative for acute CVA Objective - Constitutional Vitals: Vital Signs - 12hr 08/28/19 08/28/19 04:08 11:54 Temperature 98.0 F Pulse Rate 74 79 Respiratory 20 Rate Blood Pressure 146/54 O2 Sat by Pulse 97 Oximetry - Labs CBC & Chem 7: 08/31/19 10:57 08/31/19 09:47 Labs: Abnormal lab results 08/27/19 08/27/19 08/28/19 Range/Units 18:20 20:00 09:40 Hgb 9.4 L (10.1-14.3) gm/dl Hct 28.2 L (30.3-42.9) % PT (12.2-14.9) Sec. INR (0.87-1.13) Chloride (98-107) mmol/L BUN (7-17) mg/dL Creatinine (0.7-1.2) mg/dL Glucose (65-100) mg/dL POC Glucose 230 H 238 H (70-105) AST (5-40) units/L ALT (7-56) units/L Total Creatine Kinase (30-135) units/L Total Protein (6.3-8.2) g/dL Albumin (3.9-5) g/dL 08/28/19 08/28/19 08/28/19 Range/Units 09:40 09:40 09:40 Hgb (10.1-14.3) gm/dl Hct (30.3-42.9) % PT 15.8 H (12.2-14.9) Sec. INR 1.24 H (0.87-1.13) Chloride 95.7 L (98-107) mmol/L BUN 52 H (7-17) mg/dL Creatinine 3.5 H (0.7-1.2) mg/dL Glucose 267 H (65-100) mg/dL POC Glucose (70-105) AST 686 H (5-40) units/L ALT 382 H (7-56) units/L Total Creatine Kinase 02614 H (30-135) units/L Total Protein 5.1 L (6.3-8.2) g/dL Albumin 1.8 L (3.9-5) g/dL 08/28/19 Range/Units 09:57 Hgb (10.1-14.3) gm/dl Hct (30.3-42.9) % PT (12.2-14.9) Sec. INR (0.87-1.13) Chloride (98-107) mmol/L BUN (7-17) mg/dL Creatinine (0.7-1.2) mg/dL Glucose (65-100) mg/dL POC Glucose 231 H (70-105) AST (5-40) units/L ALT (7-56) units/L Total Creatine Kinase (30-135) units/L Total Protein (6.3-8.2) g/dL Albumin (3.9-5) g/dL
[2019-08-28] MEDS: oxyCODONE /ACETAMINOPHEN 5-325MG TAB PO PRN ×2 (14:27→21:52)
--- NOTE | 2019-08-28 19:09 | Progress Note ---
Assessment and Plan - Patient Problems (1) Acute kidney injury (JULIANO) with acute tubular necrosis (ATN) Current Visit: Yes Status: Acute Plan to address problem: Acute tubular necrosis secondary to rhabdomyolysis. Status post hemodialysis X3 with improvement in renal indices and some improvement in mental status yet. CT scan of the head did not show any acute infarct, hemorrhage or mass. (2) Encephalopathy acute Current Visit: Yes Status: Acute Plan to address problem: Probably toxic encephalopathy which is improving with dialysis. Continue to monitor mental status (3) Acute renal failure due to rhabdomyolysis Current Visit: Yes Status: Acute Plan to address problem: Probably statin induced. Statin has been stopped. CPK is not significantly changed. Follow-up CPK in the morning (4) Transaminasemia Current Visit: Yes Status: Acute Plan to address problem: Liver function tests not significantly changed. Follow-up liver function test off of statin (5) Hypertensive chronic kidney disease with stage 1 through stage 4 chronic kidney disease, or unspecified chronic kidney disease Current Visit: Yes Status: Acute Plan to address problem: Blood pressure is controlled. Follow-up blood pressure on current medications (6) Metabolic acidosis Current Visit: Yes Status: Acute Plan to address problem: Improved back to normal with dialysis. (7) Type 2 diabetes mellitus with diabetic chronic kidney disease Current Visit: Yes Status: Chronic Plan to address problem: Blood sugar control by primary attending (8) Anemia Current Visit: Yes Status: Acute Plan to address problem: Erythropoietin on dialysis and follow-up hemoglobin Subjective Date of service: 08/28/19 Principal diagnosis: transaminitis Interval history: Patient seen lying in bed. Son is at the bedside. She is more awake and speaking in full sentences today. She is however sometimes confused. Son states that she was on face time with grandchildren and great-grandchildren on phone earlier. She was not confused then. He believes she is tired now Objective - Exam Narrative Exam: Elderly -Maltese female lying in bed in no acute distress HEENT: NCAT, nasogastric tube intact Neck: Supple, no venous distention CVS: S1S2 RRR with no murmur, rub or gallop Chest: Clear to auscultation but diminished breath sounds in lower zones Abdomen: Protuberant, soft, nontender, no organomegaly, bowel sounds are present Extremities: Mild edema Genitourinary deferred Neuro: Awake, making incomprehensible sounds, not following commands - Vital Signs Vital signs: Vital Signs - 12hr 08/28/19 08/28/19 11:54 13:35 Temperature 99.2 F Pulse Rate 79 76 Respiratory 18 Rate Blood Pressure 141/50 O2 Sat by Pulse 98 Oximetry - Lab 08/28/19 09:40 08/28/19 09:40 Most recent lab results Calcium 8.5 mg/dL (8.4-10.2) 08/28/19 09:40 Magnesium 2.00 mg/dL (1.7-2.3) 08/25/19 07:01 Urine Creatinine 102.1 mg/dL (0.1-20.0) H 08/21/19 20:00 Urine Sodium 44 mmol/L 08/21/19 10:06 Urine Total Protein 176 mg/dL (5-11.8) H 08/21/19 20:00 Medications & Allergies - Medications Allergies/Adverse Reactions: Allergies No Known Allergies Allergy (Verified 11/29/13 10:39) Home Medications: Home Medications Medication Instructions Recorded Confirmed Last Taken Type ALPRAZolam [Xanax TAB] 0.5 mg PO BID 03/21/13 08/20/19 01/29/14 History Amlodipine Bes/Olmesartan Med 2.5 mg PO QDAY 03/21/13 08/20/19 1 Day Ago History [Shekhar 10-20 mg] ~08/19/19 Glimepiride [Amaryl] 2 mg PO QAM 03/21/13 08/20/19 1 Day Ago History ~08/19/19 2 mg Losartan [Cozaar] 25 mg PO QDAY 03/21/13 08/20/19 1 Day Ago History ~08/19/19 25 mg Atorvastatin [Lipitor] 40 mg PO QHS 11/13/13 08/20/19 01/29/14 History Oxycodone HCl/Acetaminophen 1 each PO Q6HR PRN #20 tablet 11/29/13 08/20/19 01/30/14 Rx [Percocet 7.5/325 mg] Aspirin EC [Ecotrin] 325 mg PO QDAY #30 tablet 02/08/14 08/20/19 Unknown Rx Clopidogrel [Plavix] 75 mg PO QDAY #30 tablet 02/08/14 08/20/19 Unknown Rx Pantoprazole [Protonix TAB] 40 mg PO QDAY #30 tablet 02/08/14 08/20/19 1 Day Ago Rx ~08/19/19 40 mg carvediloL [Coreg] 3.125 mg PO BID #60 tablet 02/08/14 08/20/19 Unknown Rx levETIRAcetam [Keppra TAB] 1,500 mg PO BID 08/20/19 08/20/19 Unknown History Citalopram [celeXA] 40 mg PO QDAY 08/22/19 08/22/19 Unknown History Active Medications: Generic Name Dose Route Start Last Admin Trade Name Freq PRN Reason Stop Dose Admin Alprazolam 0.5 mg 08/20/19 10:00 08/28/19 10:31 Xanax PO 0.5 mg BID SHARON Administration Lipase/Protease/Amylase 1 each 08/23/19 14:[address] 10,500 Unit FEEDTUBE PRN PRN For Clogged Feeding Tube Aspirin 325 mg 08/20/19 10:00 08/28/19 10:30 Ecotrin PO 325 mg QDAY SHARON Administration Carvedilol 3.125 mg 08/20/19 22:00 08/28/19 10:29 Coreg PO 3.125 mg BID SHARON Administration Clopidogrel Bisulfate 75 mg 08/20/19 10:00 08/28/19 10:31 Plavix PO 75 mg QDAY SHARON Administration Epoetin Rahul 10,000 unit 08/25/19 09:32 08/26/19 10:29 Procrit IV 10,000 unit DESIRAE PRN Administration hemodialysis Famotidine 20 mg 08/20/19 22:00 08/28/19 10:30 Pepcid IV 20 mg DAILY SHARON Administration Glimepiride 2 mg 08/20/19 10:00 08/28/19 10:30 Amaryl PO 2 mg QDDIAB SHARON Administration Heparin Sodium (Porcine) 5,000 unit 08/24/19 22:00 08/28/19 10:30 Heparin SUB-Q 5,000 unit Q12HR SHARON Administration Heparin Sodium (Porcine) 5,000 unit 08/25/19 09:32 Heparin IV DESIRAE PRN hemodialysis Hydralazine HCl 10 mg 08/20/19 09:00 08/26/19 20:15 Apresoline IV 10 mg Q4HR PRN Administration Hypertension Sodium Bicarbonate 150 meq/ 1,150 mls @ 100 mls/hr 08/22/19 09:00 08/28/19 02:37 Dextrose IV 100 mls/hr DIRECT SHARON Administration Sodium Chloride 100 mls @ 999 mls/hr 08/25/19 09:32 Nacl 0.9% IV DSEIRAE PRN Hypotension Insulin Human Lispro 0 unit 08/20/19 22:00 08/28/19 18:00 Humalog SUB-Q 4 unit ACHS SHARON Administration Protocol Insulin Human NPH 10 unit 08/27/19 17:00 08/28/19 18:00 Humulin N SUB-Q 10 unit BIDDIAB SHARON Administration Levetiracetam 1,500 mg 08/23/19 22:00 08/28/19 10:30 Keppra FEEDTUBE 1,500 mg BID SHARON Administration Nitroglycerin 0.4 mg 08/20/19 19:00 Nitrostat SL .Q5MIN PRN Chest Pain Oxycodone/Acetaminophen 1 tab 08/21/19 20:37 08/28/19 14:27 Percocet 5/325 PO 1 tab Q6H PRN Administration Pain, Moderate (4-6) Simple Syrup 15 ml 08/23/19 14:47 Simple Syrup FEEDTUBE PRN PRN Hypoglycemia Simple Syrup 30 ml 08/23/19 14:47 Simple Syrup FEEDTUBE PRN PRN Hypoglycemia Sodium Bicarbonate 325 mg 08/23/19 14:47 Sodium Bicarbonate FEEDTUBE PRN PRN For Clogged Feeding Tube
[2019-08-29] MEDS: INSULIN LISPRO 100 UNIT/ML SUB-Q SCH ×5 (00:05→22:06)
[2019-08-29] MEDS: oxyCODONE /ACETAMINOPHEN 5-325MG TAB PO PRN ×2 (06:00→13:50)
[2019-08-29 09:18] LABS: Albumin 1.8 g/dL (3.9-5); Calcium 8.4 mg/dL (8.4-10.2)
--- NOTE | 2019-08-29 09:18 | Progress Note ---
Assessment and Plan - Patient Problems (1) Acute kidney injury (JULIANO) with acute tubular necrosis (ATN) Current Visit: Yes Status: Acute Plan to address problem: Acute tubular necrosis secondary to rhabdomyolysis. Status post hemodialysis X3 with improvement in renal indices and some improvement in mental status yet. CT scan of the head did not show any acute infarct, hemorrhage or mass. Kidney function test pending this morning. Hemodialysis again today and then reevaluate (2) Encephalopathy acute Current Visit: Yes Status: Acute Plan to address problem: Probably toxic encephalopathy which is improving with dialysis. Continue to monitor mental status (3) Acute renal failure due to rhabdomyolysis Current Visit: Yes Status: Acute Plan to address problem: Probably statin induced. Statin has been stopped. CPK is still not improving. Follow-up CPK this morning (4) Transaminasemia Current Visit: Yes Status: Acute Plan to address problem: Liver function tests not significantly changed. Follow-up liver function test off of statin (5) Hypertensive chronic kidney disease with stage 1 through stage 4 chronic kidney disease, or unspecified chronic kidney disease Current Visit: Yes Status: Acute Plan to address problem: Blood pressure is controlled. Follow-up blood pressure on current medications (6) Metabolic acidosis Current Visit: Yes Status: Acute Plan to address problem: Improved back to normal with dialysis. (7) Type 2 diabetes mellitus with diabetic chronic kidney disease Current Visit: Yes Status: Chronic Plan to address problem: Blood sugar control by primary attending (8) Anemia Current Visit: Yes Status: Acute Plan to address problem: Erythropoietin on dialysis and follow-up hemoglobin Subjective Date of service: 08/29/19 Principal diagnosis: transaminitis Interval history: Patient seen lying in bed. No family at the bedside. She is awake and speaking in full sentences today. She denies any pain, nausea, vomiting, shortness of breath or dizziness Objective - Exam Narrative Exam: Elderly -Romanian female lying in bed in no acute distress HEENT: NCAT, nasogastric tube intact Neck: Supple, no venous distention CVS: S1S2 RRR with no murmur, rub or gallop Chest: Clear to auscultation but diminished breath sounds in lower zones Abdomen: Protuberant, soft, nontender, no organomegaly, bowel sounds are present Extremities: Mild edema Genitourinary deferred Neuro: Awake, making incomprehensible sounds, not following commands - Vital Signs Vital signs: Vital Signs - 12hr 08/28/19 08/28/19 08/29/19 22:00 23:16 04:17 Temperature 98.6 F 98.8 F Pulse Rate 73 70 68 Respiratory 18 20 Rate Blood Pressure 145/51 162/61 O2 Sat by Pulse 96 100 Oximetry - Lab 08/28/19 09:40 08/28/19 09:40 Most recent lab results Calcium 8.5 mg/dL (8.4-10.2) 08/28/19 09:40 Magnesium 2.00 mg/dL (1.7-2.3) 08/25/19 07:01 Urine Creatinine 102.1 mg/dL (0.1-20.0) H 08/21/19 20:00 Urine Sodium 44 mmol/L 08/21/19 10:06 Urine Total Protein 176 mg/dL (5-11.8) H 08/21/19 20:00 Medications & Allergies - Medications Allergies/Adverse Reactions: Allergies No Known Allergies Allergy (Verified 11/29/13 10:39) Home Medications: Home Medications Medication Instructions Recorded Confirmed Last Taken Type ALPRAZolam [Xanax TAB] 0.5 mg PO BID 03/21/13 08/20/19 01/29/14 History Amlodipine Bes/Olmesartan Med 2.5 mg PO QDAY 03/21/13 08/20/19 1 Day Ago History [Shekhar 10-20 mg] ~08/19/19 Glimepiride [Amaryl] 2 mg PO QAM 03/21/13 08/20/19 1 Day Ago History ~08/19/19 2 mg Losartan [Cozaar] 25 mg PO QDAY 03/21/13 08/20/19 1 Day Ago History ~08/19/19 25 mg Atorvastatin [Lipitor] 40 mg PO QHS 11/13/13 08/20/19 01/29/14 History Oxycodone HCl/Acetaminophen 1 each PO Q6HR PRN #20 tablet 11/29/13 08/20/19 01/30/14 Rx [Percocet 7.5/325 mg] Aspirin EC [Ecotrin] 325 mg PO QDAY #30 tablet 02/08/14 08/20/19 Unknown Rx Clopidogrel [Plavix] 75 mg PO QDAY #30 tablet 02/08/14 08/20/19 Unknown Rx Pantoprazole [Protonix TAB] 40 mg PO QDAY #30 tablet 02/08/14 08/20/19 1 Day Ago Rx ~08/19/19 40 mg carvediloL [Coreg] 3.125 mg PO BID #60 tablet 02/08/14 08/20/19 Unknown Rx levETIRAcetam [Keppra TAB] 1,500 mg PO BID 08/20/19 08/20/19 Unknown History Citalopram [celeXA] 40 mg PO QDAY 08/22/19 08/22/19 Unknown History Active Medications: Generic Name Dose Route Start Last Admin Trade Name Freq PRN Reason Stop Dose Admin Alprazolam 0.5 mg 08/20/19 10:00 08/28/19 21:52 Xanax PO 0.5 mg BID SHARON Administration Lipase/Protease/Amylase 1 each 08/23/19 14:47 Pancreaze 10,500 Unit FEEDTUBE PRN PRN For Clogged Feeding Tube Aspirin 325 mg 08/20/19 10:00 08/28/19 10:30 Ecotrin PO 325 mg QDAY SHARON Administration Carvedilol 3.125 mg 08/20/19 22:00 08/28/19 21:52 Coreg PO 3.125 mg BID SHARON Administration Clopidogrel Bisulfate 75 mg 08/20/19 10:00 08/28/19 10:31 Plavix PO 75 mg QDAY SHARON Administration Epoetin Rahul 10,000 unit 08/25/19 09:32 08/26/19 10:29 Procrit IV 10,000 unit DESIRAE PRN Administration hemodialysis Famotidine 20 mg 08/20/19 22:00 08/28/19 10:30 Pepcid IV 20 mg DAILY SHARON Administration Glimepiride 2 mg 08/20/19 10:00 08/28/19 10:30 Amaryl PO 2 mg QDDIAB SHARON Administration Heparin Sodium (Porcine) 5,000 unit 08/24/19 22:00 08/28/19 21:53 Heparin SUB-Q 5,000 unit Q12HR SHARON Administration Heparin Sodium (Porcine) 5,000 unit 08/25/19 09:32 Heparin IV DESIRAE PRN hemodialysis Hydralazine HCl 10 mg 08/20/19 09:00 08/26/19 20:15 Apresoline IV 10 mg Q4HR PRN Administration Hypertension Sodium Bicarbonate 150 meq/ 1,150 mls @ 100 mls/hr 08/22/19 09:00 08/28/19 21:03 Dextrose IV Infused DIRECT SHARON Infusion Sodium Chloride 100 mls @ 999 mls/hr 08/25/19 09:32 Nacl 0.9% IV DESIRAE PRN Hypotension Insulin Human Lispro 0 unit 08/20/19 22:00 08/29/19 00:05 Humalog SUB-Q 3 unit ACHS SHARON Administration Protocol Insulin Human NPH 10 unit 08/27/19 17:00 08/28/19 18:00 Humulin N SUB-Q 10 unit BIDDIAB SHARON Administration Levetiracetam 1,500 mg 08/23/19 22:00 08/28/19 21:57 Keppra FEEDTUBE 1,500 mg BID SHARON Administration Nitroglycerin 0.4 mg 08/20/19 19:00 Nitrostat SL .Q5MIN PRN Chest Pain Oxycodone/Acetaminophen 1 tab 08/21/19 20:37 08/29/19 06:00 Percocet 5/325 PO 1 tab Q6H PRN Administration Pain, Moderate (4-6) Simple Syrup 15 ml 08/23/19 14:47 Simple Syrup FEEDTUBE PRN PRN Hypoglycemia Simple Syrup 30 ml 08/23/19 14:47 Simple Syrup FEEDTUBE PRN PRN Hypoglycemia Sodium Bicarbonate 325 mg 08/23/19 14:47 Sodium Bicarbonate FEEDTUBE PRN PRN For Clogged Feeding Tube
[2019-08-29] MEDS: GLIMEPIRIDE 2 MG TAB PO SCH (10:14)
[2019-08-29] MEDS: CLOPIDOGREL 75 MG TAB PO SCH (10:15)
[2019-08-29] MEDS: carvediloL 3.125 MG TAB PO SCH ×2 (10:15→21:45)
[2019-08-29] MEDS: ASPIRIN EC 325 MG TAB PO SCH (10:17)
[2019-08-29] MEDS: INSULIN NPH, HUMAN 100 UNIT/1 ML SUB-Q SCH ×2 (10:18→18:16)
[2019-08-29] MEDS: HEPARIN 5,000 UNIT/1 ML VIAL SUB-Q SCH ×2 (10:19→21:45)
[2019-08-29] MEDS: levETIRAcetam 500 MG/5 ML ORAL LIQD FEEDTUBE SCH ×2 (10:20→21:44)
[2019-08-29] MEDS: FAMOTIDINE 20 MG/2 ML INJ IV SCH (10:21)
[2019-08-29] MEDS: ALPRAZolam 0.5 MG TAB PO SCH ×2 (10:21→21:45)
--- NOTE | 2019-08-29 11:49 | Gastroenterology Progress Note ---
Assessment and Plan 1.Transaminitis -INR now WNL-preserved synthetic liver function -AST /ALT-trending up, along with CK (T.stephanie and alk phos WNL) -acute hepatitis panel negative -abd CT showed sludge in gallbladder with no acute cholecystitis or biliary ductal dilatation; liver normal -abd U/S showed sludge vs tiny stones in gallbladder and CBC dilated to 10.9 mm but no obstruction lesion seen -MR/MRCP unable to be done due to AICD -etiology-likely 2/2 rhabdomyolysis, doubt obstruction (labs do not support) -no evidence of liver failure -plan recommendation for ERCP at this time -suspect w/ improved primary process LFT's will also improve -Rhabdo management per primary team -avoid hepatotoxic agents -continue to trend labs and supportive care -poor prognosis; DNR status -further recommendations to follow 2.Acute kidney failure 3.severe hypokalemia 4.NSTEMI 5.CAD 6.cardiomyopathy (s/p ICD; resolving; EF 55%) 7.metabolic acidosis 8.DM 9.dyslipidemia 10.HTN Subjective Date of service: 08/29/19 Principal diagnosis: transaminitis Interval history: No acute distress. Patient more alert today. Tolerating TFs. Objective - Constitutional Vitals: Temp Pulse Resp BP Pulse Ox 98.3 F 71 16 132/57 100 08/29/19 09:09 08/29/19 10:15 08/29/19 09:09 08/29/19 10:15 08/29/19 09:09 General appearance: no acute distress - Respiratory Respiratory effort: normal Respiratory: bilateral: diminished - Cardiovascular Rhythm: regular - Gastrointestinal General gastrointestinal: Present: soft, non-distended, normal bowel sounds - Integumentary Integumentary: Present: warm - Neurologic Neurological: other (unable to assess) - Labs CBC & Chem 7: 08/28/19 09:40 08/29/19 07:49 Labs: Laboratory Results - last 24 hr 08/28/19 08/28/19 08/29/19 14:03 17:41 00:11 Sodium Potassium Chloride Carbon Dioxide Anion Gap BUN Creatinine Estimated GFR BUN/Creatinine Ratio Glucose POC Glucose 285 H 247 H 192 H Calcium Total Bilirubin AST ALT Alkaline Phosphatase Total Protein Albumin Albumin/Globulin Ratio 08/29/19 08/29/19 08/29/19 05:41 07:49 09:36 Sodium 138 Potassium 4.7 Chloride 93.4 L Carbon Dioxide 27 Anion Gap 22 BUN 74 H Creatinine 4.0 H Estimated GFR 13 BUN/Creatinine Ratio 19 Glucose 186 H POC Glucose 170 H 192 H Calcium 8.4 Total Bilirubin 0.30 AST 755 H ALT 400 H Alkaline Phosphatase 84 Total Protein 4.7 L Albumin 1.8 L Albumin/Globulin Ratio 0.6
[2019-08-29 12:16] LABS: INR 1.12 (0.87-1.13)
--- NOTE | 2019-08-29 16:00 | Progress Note ---
Assessment and Plan /Transaminitis; unknown etiology - trending up with normal ele Hepatitis panel negative, no stone in abdominal ultrasound + biliary sludge, no cholecystitis, dilated common bile duct GI following, unable to do MRI due to ICD Management supportive per GI /Rhabdomyolysis; likely from statin CpK trending up, placed on vigorous IV hydration w/o sig improvement Monitor renal function, cont to Hold statin, nephrology following, also getting HD /Metabolic encephalopathy; multifactorial Uremia, transaminitis, acidosis, advanced age with underlying dementia Patient is lethargic but alert, Dobbhoff in place For medications and tube feed ing cont supportive care, s/p repeat CT head showed no acute CVA speech eval ordered - recommendation pending /Acute kidney injury; likely ATN Worsening renal function, nephrology following - on HD now /Metabolic acidosis:due acute kidney injury, mgt per neurology - on hCO3 drip /Severe hypokalemia; Closely monitor electrolytes and replete as needed /Non-ST elevation UT; In the setting of acute renal failure and acute rhabdo could be NSTEMI 2 However patient has risk factors, coronary artery disease - status post PCI in 2013 monitore with Serial cardiac enzymes, antiplatelets, beta-blockers echocardiogram, Cardiology evaluated - no cardiac work-up intended /Coronary artery disease status post PCI /ICD in place; monitor, cardiology evaluation if needed /Dyslipidemia; hold statin in view of rhabdo/transaminitis /Type 2 diabetes mellitus; Accu-Chek sliding scale coverage ADA diet, insulin as needed /History of seizure disorder; seizure precautions Continue Keppra /Hypertension; moderate control Continue current antihypertensives and PRN medications --DVT prophylaxis; heparin renal dose --DNR Patient has multiple medical problems involving multiple organs, Metabolic en cephalopathy secondary to uremia liver failure, Dementia, rhabdomyolysis, metabolic acidosis, Patient is critically ill, family aware, Nephrology, GI cardiology evaluated the patient Remains critically ill with poor prognosis, discussed with the Son. They want to continue HD for now as her mental status improved d/c when clinically stable - CPK LFT still elevated Brief history; 84-year-old -[place] female patient with significant history of hypertension ,diabetes mellitus, coronary artery disease status post PCI ,CVA and seizure disorder Presented to the emergency room with complaints of generalized weakness, work-up is consistent with acute renal failure, acute liver failure, severe rhabdomyolysis, non-ST elevation UT, severe metabolic encephalopathy, multiple specialists are following the patient Nephrology initiated hemodialysis today. Very poor prognosis, after discussing extensively about the goals of treatment and CODE STATUS Patient's daughter and son requested DNR status. Advised to continue all the treatment. Important active issues: 1. Worsening renal function; nephrology initiated hemodialysis 2. Severe rhabdomyolysis; with renal and liver failure 3. Acute liver failure/transaminitis 4. Non-ST elevation UT; 5. Acute encephalopathy Hospitalist Physical General appearance: Present: mild distress, well-nourished, other (Lethargic but makes moaning sound) - EENT Eyes: Present: PERRL, EOM intact - Neck Neck: Present: supple, normal ROM - Respiratory Respiratory effort: nonlabored Respiratory: bilateral: diminished, rhonchi, negative: rales, wheezing - Cardiovascular Rhythm: regular Heart Sounds: Present: S1 & S2 - Extremities Extremities: no ischemia Extremity abnormal: edema - Abdominal General gastrointestinal: soft, non-tender, non-distended, normal bowel sounds - Integumentary Integumentary: Present: clear, warm - Psychiatric Psychiatric: other (unable to assess) - Neurologic Neurologic: verbal, follows minor commends Subjective Date of service: 08/29/19 Principal diagnosis: transaminitis Interval history: Patient seen and examined Patient alert today, discussed with patient's Son at bedside her CPK remained elevated, LFT cont to trending up remains critically ill, getting HD Objective - Constitutional Vitals: Vital Signs - 12hr 08/29/19 08/29/19 08/29/19 04:17 09:09 10:15 Temperature 98.8 F 98.3 F Pulse Rate 68 71 71 Respiratory 20 16 Rate Blood Pressure 162/61 132/57 132/57 O2 Sat by Pulse 100 100 Oximetry - Labs CBC & Chem 7: 08/31/19 10:57 08/31/19 09:47 Labs: Abnormal lab results 08/28/19 08/29/19 08/29/19 Range/Units 17:41 00:11 05:41 Chloride (98-107) mmol/L BUN (7-17) mg/dL Creatinine (0.7-1.2) mg/dL Glucose (65-100) mg/dL POC Glucose 247 H 192 H 170 H (70-105) AST (5-40) units/L ALT (7-56) units/L Total Creatine Kinase (30-135) units/L Total Protein (6.3-8.2) g/dL Albumin (3.9-5) g/dL 08/29/19 08/29/19 08/29/19 Range/Units 07:49 09:36 10:15 Chloride 93.4 L (98-107) mmol/L BUN 74 H (7-17) mg/dL Creatinine 4.0 H (0.7-1.2) mg/dL Glucose 186 H (65-100) mg/dL POC Glucose 192 H (70-105) AST 755 H (5-40) units/L ALT 400 H (7-56) units/L Total Creatine Kinase 85674 H (30-135) units/L Total Protein 4.7 L (6.3-8.2) g/dL Albumin 1.8 L (3.9-5) g/dL
[2019-08-29] MEDS ORDERED: levETIRAcetam 500 MG TAB PO SCH (22:00)
[2019-08-30 05:12] LABS: Hemoglobin 8.3 gm/dl (10.1-14.3); Mean Corpuscular HGB Conc 33 % (30-34); Mean Corpuscular Volume 95 fl (79-97); Platelet Count 163 K/mm3 (140-440); Red Blood Count 2.63 M/mm3 (3.65-5.03); Red Cell Distribution Width 14.6 % (13.2-15.2)
[2019-08-30 05:39] LABS: Calcium 8.4 mg/dL (8.4-10.2)
[2019-08-30] MEDS: oxyCODONE /ACETAMINOPHEN 5-325MG TAB PO PRN ×2 (07:27→21:21)
[2019-08-30] MEDS: INSULIN LISPRO 100 UNIT/ML SUB-Q SCH ×5 (08:00→22:57)
[2019-08-30] MEDS ORDERED: SODIUM CHLORIDE 0.9% 100 ML IV PRN (09:49)
[2019-08-30] MEDS: ASPIRIN EC 325 MG TAB PO SCH (09:51)
[2019-08-30] MEDS: CLOPIDOGREL 75 MG TAB PO SCH (09:51)
[2019-08-30] MEDS: levETIRAcetam 500 MG/5 ML ORAL LIQD FEEDTUBE SCH ×2 (09:51→21:21)
[2019-08-30] MEDS: ALPRAZolam 0.5 MG TAB PO SCH ×2 (09:51→21:21)
[2019-08-30] MEDS: HEPARIN 5,000 UNIT/1 ML VIAL SUB-Q SCH ×2 (09:51→21:21)
[2019-08-30] MEDS: carvediloL 3.125 MG TAB PO SCH ×2 (09:51→21:21)
[2019-08-30] MEDS: FAMOTIDINE 20 MG/2 ML INJ IV SCH (09:52)
[2019-08-30] MEDS: INSULIN NPH, HUMAN 100 UNIT/1 ML SUB-Q SCH ×3 (09:55→17:45)
--- NOTE | 2019-08-30 11:35 | Progress Note ---
Assessment and Plan - Patient Problems (1) Acute kidney injury (JULIANO) with acute tubular necrosis (ATN) Current Visit: Yes Status: Acute Plan to address problem: Acute tubular necrosis secondary to rhabdomyolysis. Status post hemodialysis X3 with improvement in renal indices and some improvement in mental status. CT scan of the head did not show any acute infarct, hemorrhage or mass. Kidney indices are worse and potassium is high. Hemodialysis again today and then reevaluate (2) Encephalopathy acute Current Visit: Yes Status: Acute Plan to address problem: Probably toxic encephalopathy which is improving with dialysis. Continue to monitor mental status (3) Acute renal failure due to rhabdomyolysis Current Visit: Yes Status: Acute Plan to address problem: Probably statin induced. Statin has been stopped. CPK is still not improving. Follow-up CPK this morning (4) Transaminasemia Current Visit: Yes Status: Acute Plan to address problem: Liver function tests not significantly changed. Follow-up liver function test off of statin (5) Hypertensive chronic kidney disease with stage 1 through stage 4 chronic kidney disease, or unspecified chronic kidney disease Current Visit: Yes Status: Acute Plan to address problem: Blood pressure is controlled. Follow-up blood pressure on current medications (6) Metabolic acidosis Current Visit: Yes Status: Acute Plan to address problem: Improved back to normal with dialysis. (7) Type 2 diabetes mellitus with diabetic chronic kidney disease Current Visit: Yes Status: Chronic Plan to address problem: Blood sugar control by primary attending (8) Anemia Current Visit: Yes Status: Acute Plan to address problem: Erythropoietin on dialysis and follow-up hemoglobin Subjective Date of service: 08/30/19 Principal diagnosis: transaminitis Interval history: Patient seen lying in bed. No family at the bedside. She is drowsy but awakens and answers simple questions appropriately. The granddaughter and great granddaughter are at the bedside. She denies any pain, nausea, vomiting, shortness of breath or dizziness Objective - Exam Narrative Exam: Elderly -[place] female lying in bed in no acute distress HEENT: NCAT, nasogastric tube intact Neck: Supple, no venous distention CVS: S1S2 RRR with no murmur, rub or gallop Chest: Clear to auscultation but diminished breath sounds in lower zones Abdomen: Protuberant, soft, nontender, no organomegaly, bowel sounds are present Extremities: Mild edema Genitourinary deferred Neuro: Awake, making incomprehensible sounds, not following commands - Vital Signs Vital signs: Vital Signs - 12hr 08/30/19 08/30/19 08/30/19 04:13 07:27 08:49 Temperature 98.8 F 98.0 F Pulse Rate 71 74 Respiratory 20 18 18 Rate Blood Pressure 136/51 165/52 O2 Sat by Pulse 95 98 Oximetry - Lab 08/30/19 04:42 08/30/19 04:42 Most recent lab results Calcium 8.4 mg/dL (8.4-10.2) 08/30/19 04:42 Magnesium 2.00 mg/dL (1.7-2.3) 08/25/19 07:01 Urine Creatinine 102.1 mg/dL (0.1-20.0) H 08/21/19 20:00 Urine Sodium 44 mmol/L 08/21/19 10:06 Urine Total Protein 176 mg/dL (5-11.8) H 08/21/19 20:00 Medications & Allergies - Medications Allergies/Adverse Reactions: Allergies No Known Allergies Allergy (Verified 11/29/13 10:39) Home Medications: Home Medications Medication Instructions Recorded Confirmed Last Taken Type ALPRAZolam [Xanax TAB] 0.5 mg PO BID 03/21/13 08/20/19 01/29/14 History Amlodipine Bes/Olmesartan Med 2.5 mg PO QDAY 03/21/13 08/20/19 1 Day Ago History [Shekhar 10-20 mg] ~08/19/19 Glimepiride [Amaryl] 2 mg PO QAM 03/21/13 08/20/19 1 Day Ago History ~08/19/19 2 mg Losartan [Cozaar] 25 mg PO QDAY 03/21/13 08/20/19 1 Day Ago History ~08/19/19 25 mg Atorvastatin [Lipitor] 40 mg PO QHS 11/13/13 08/20/19 01/29/14 History Oxycodone HCl/Acetaminophen 1 each PO Q6HR PRN #20 tablet 11/29/13 08/20/19 01/30/14 Rx [Percocet 7.5/325 mg] Aspirin EC [Ecotrin] 325 mg PO QDAY #30 tablet 02/08/14 08/20/19 Unknown Rx Clopidogrel [Plavix] 75 mg PO QDAY #30 tablet 02/08/14 08/20/19 Unknown Rx Pantoprazole [Protonix TAB] 40 mg PO QDAY #30 tablet 02/08/14 08/20/19 1 Day Ago Rx ~08/19/19 40 mg carvediloL [Coreg] 3.125 mg PO BID #60 tablet 02/08/14 08/20/19 Unknown Rx levETIRAcetam [Keppra TAB] 1,500 mg PO BID 08/20/19 08/20/19 Unknown History Citalopram [celeXA] 40 mg PO QDAY 08/22/19 08/22/19 Unknown History Active Medications: Generic Name Dose Route Start Last Admin Trade Name Freq PRN Reason Stop Dose Admin Alprazolam 0.5 mg 08/20/19 10:00 08/30/19 09:51 Xanax PO 0.5 mg BID SHARON Administration Lipase/Protease/Amylase 1 each 08/23/19 14:47 Pancreaze 10,500 Unit FEEDTUBE PRN PRN For Clogged Feeding Tube Aspirin 325 mg 08/20/19 10:00 08/30/19 09:51 Ecotrin PO 325 mg QDAY SHARON Administration Carvedilol 3.125 mg 08/20/19 22:00 08/30/19 09:51 Coreg PO 3.125 mg BID SHARON Administration Clopidogrel Bisulfate 75 mg 08/20/19 10:00 08/30/19 09:51 Plavix PO 75 mg QDAY SHARON Administration Epoetin Rahul 10,000 unit 08/25/19 09:32 08/26/19 10:29 Procrit IV 10,000 unit DESIRAE PRN Administration hemodialysis Famotidine 20 mg 08/20/19 22:00 08/30/19 09:52 Pepcid IV 20 mg DAILY SHARON Administration Heparin Sodium (Porcine) 5,000 unit 08/24/19 22:00 08/30/19 09:51 Heparin SUB-Q 5,000 unit Q12HR SHARON Administration Heparin Sodium (Porcine) 5,000 unit 08/25/19 09:32 Heparin IV DESIRAE PRN hemodialysis Hydralazine HCl 10 mg 08/20/19 09:00 08/26/19 20:15 Apresoline IV 10 mg Q4HR PRN Administration Hypertension Sodium Bicarbonate 150 meq/ 1,150 mls @ 100 mls/hr 08/22/19 09:00 08/28/19 21:03 Dextrose IV Infused DIRECT SHARON Infusion Sodium Chloride 100 mls @ 999 mls/hr 08/25/19 09:32 Nacl 0.9% IV DESIRAE PRN Hypotension Insulin Human Lispro 0 unit 08/20/19 22:00 08/30/19 08:00 Humalog SUB-Q 3 unit ACHS SHARON Administration Protocol Insulin Human NPH 10 unit 08/27/19 17:00 08/30/19 09:55 Humulin N SUB-Q 10 unit BIDDIAB SHARON Administration Levetiracetam 1,500 mg 08/23/19 22:00 08/30/19 09:51 Keppra FEEDTUBE 1,500 mg BID SHARON Administration Nitroglycerin 0.4 mg 08/20/19 19:00 Nitrostat SL .Q5MIN PRN Chest Pain Oxycodone/Acetaminophen 1 tab 08/21/19 20:37 08/30/19 07:27 Percocet 5/325 PO 1 tab Q6H PRN Administration Pain, Moderate (4-6) Simple Syrup 15 ml 08/23/19 14:47 Simple Syrup FEEDTUBE PRN PRN Hypoglycemia Simple Syrup 30 ml 08/23/19 14:47 Simple Syrup FEEDTUBE PRN PRN Hypoglycemia Sodium Bicarbonate 325 mg 08/23/19 14:47 Sodium Bicarbonate FEEDTUBE PRN PRN For Clogged Feeding Tube
--- NOTE | 2019-08-30 12:34 | Gastroenterology Progress Note ---
Assessment and Plan 1.Transaminitis -INR now WNL-preserved synthetic liver function -Transaminitis unchanged -acute hepatitis panel negative -abd CT showed sludge in gallbladder with no acute cholecystitis or biliary ductal dilatation; liver normal -abd U/S showed sludge vs tiny stones in gallbladder and CBC dilated to 10.9 mm but no obstruction lesion seen -MR/MRCP unable to be done due to AICD -still suspect increase LFT's due to Rhabdo and best treatmjetn of liver is management thereof -no evidence of liver failure especially with improving INR -no plans for ERCP -Rhabdo management per primary team -avoid hepatotoxic agents -continue to trend labs and supportive care -poor prognosis; DNR status -will follow intermittently, call if situation chnages Subjective Date of service: 08/30/19 Principal diagnosis: transaminitis Interval history: - no specific changes overnight Objective - Constitutional Vitals: Temp Pulse Resp BP Pulse Ox 98.0 F 70 18 165/52 98 08/30/19 08:49 08/30/19 10:00 08/30/19 08:49 08/30/19 08:49 08/30/19 08:49 General appearance: no acute distress - EENT Eyes: PERRL - Respiratory Respiratory: bilateral: rhonchi - Cardiovascular Rhythm: regular Heart Sounds: Present: S1 & S2 - Gastrointestinal General gastrointestinal: Present: soft, non-tender, non-distended - Labs CBC & Chem 7: 08/30/19 04:42 08/30/19 04:42 Labs: Laboratory Results - last 24 hr 08/29/19 08/29/19 08/29/19 10:15 12:20 17:41 WBC RBC Hgb Hct MCV MCH MCHC RDW Plt Count Sodium Potassium Chloride Carbon Dioxide Anion Gap BUN Creatinine Estimated GFR BUN/Creatinine Ratio Glucose POC Glucose 168 H 159 H Calcium Total Bilirubin AST ALT Alkaline Phosphatase Total Creatine Kinase 44022 H Total Protein Albumin Albumin/Globulin Ratio 08/29/19 08/30/19 08/30/19 21:57 04:42 04:42 WBC 17.0 H RBC 2.63 L Hgb 8.3 L Hct 25.0 L MCV 95 MCH 31 MCHC 33 RDW 14.6 Plt Count 163 Sodium 140 Potassium 5.7 H D Chloride 93.1 L Carbon Dioxide 28 Anion Gap 25 BUN 94 H Creatinine 5.1 H Estimated GFR 10 BUN/Creatinine Ratio 18 Glucose 199 H POC Glucose 170 H Calcium 8.4 Total Bilirubin 0.30 AST 744 H ALT 426 H Alkaline Phosphatase 88 Total Creatine Kinase Total Protein 4.1 L Albumin 2.0 L Albumin/Globulin Ratio 1.0 08/30/19 08/30/19 08/30/19 07:51 10:14 11:57 WBC RBC Hgb Hct MCV MCH MCHC RDW Plt Count Sodium Potassium Chloride Carbon Dioxide Anion Gap BUN Creatinine Estimated GFR BUN/Creatinine Ratio Glucose POC Glucose 242 H 237 H Calcium Total Bilirubin AST ALT Alkaline Phosphatase Total Creatine Kinase 07563 H Total Protein Albumin Albumin/Globulin Ratio
[2019-08-30] MEDS ORDERED: SODIUM CHLORIDE*PRIMING MACHINE ONLY FOR DIALYSIS MC ONE (19:20)
[2019-08-31] MEDS: INSULIN NPH, HUMAN 100 UNIT/1 ML SUB-Q SCH ×2 (08:27→17:21)
[2019-08-31] MEDS: INSULIN LISPRO 100 UNIT/ML SUB-Q SCH ×4 (08:27→22:33)
[2019-08-31] MEDS: ASPIRIN EC 325 MG TAB PO SCH (09:37)
[2019-08-31] MEDS: levETIRAcetam 500 MG/5 ML ORAL LIQD FEEDTUBE SCH ×2 (09:37→22:31)
[2019-08-31] MEDS: ALPRAZolam 0.5 MG TAB PO SCH ×2 (09:37→22:32)
[2019-08-31] MEDS: carvediloL 3.125 MG TAB PO SCH ×2 (09:37→22:32)
[2019-08-31] MEDS: FAMOTIDINE 20 MG/2 ML INJ IV SCH (09:37)
[2019-08-31] MEDS: CLOPIDOGREL 75 MG TAB PO SCH (09:37)
[2019-08-31] MEDS: HEPARIN 5,000 UNIT/1 ML VIAL SUB-Q SCH ×2 (09:37→22:33)
[2019-08-31 11:14] LABS: Hematocrit 25.8 % (30.3-42.9); Hemoglobin 8.4 gm/dl (10.1-14.3)
[2019-08-31 11:18] LABS: Alanine Aminotransferase 426 units/L (7-56); BUN/Creatinine Ratio 21; Blood Urea Nitrogen 77 mg/dL (7-17); Calcium 8.5 mg/dL (8.4-10.2); Hemolysis Index 21
[2019-08-31 11:21] LABS: Bilirubin,Direct < 0.2 mg/dL (0-0.2)
[2019-08-31] MEDS: oxyCODONE /ACETAMINOPHEN 5-325MG TAB PO PRN (11:28)
--- NOTE | 2019-08-31 13:54 | Progress Note ---
Assessment and Plan /Transaminitis; unknown etiology - trending down slightly with normal ele Hepatitis panel negative, no stone in abdominal ultrasound + biliary sludge, no cholecystitis, dilated common bile duct GI following, unable to do MRI due to ICD Management supportive per GI /Rhabdomyolysis; likely from statin CpK trending upto ~28,000, placed on vigorous IV hydration w/o sig improvement Monitor renal function, cont to Hold statin, nephrology following, also getting HD /Metabolic encephalopathy; multifactorial Uremia, transaminitis, acidosis, advanced age with underlying dementia Patient is lethargic but alert, Dobbhoff in place For medications and tube feeding cont supportive care, s/p repeat CT head showed no acute CVA speech eval ordered - recommendation pending /Acute kidney injury; likely ATN Worsening renal function, nephrology following - on HD now /Metabolic acidosis: due acute kidney injury, mgt per neurology - on hCO3 drip /Severe hypokalemia; Closely monitor electrolytes and replete as needed /Non-ST elevation AL; In the setting of acute renal failure and acute rhabdo could be NSTEMI 2 However patient has risk factors, coronary artery disease - status post PCI in 2013 monitore with Serial cardiac enzymes, antiplatelets, beta-blockers echocardiogram, Cardiology evaluated - no cardiac work-up intended /Coronary artery disease status post PCI /ICD in place; monitor, cardiology evaluation if needed /Dyslipidemia; hold statin in view of rhabdo/transaminitis /Type 2 diabetes mellitus; Accu-Chek sliding scale coverage ADA diet, insulin as needed /History of seizure disorder; seizure precautions Continue Keppra /Hypertension; moderate control Continue current antihypertensives and PRN medications --DVT prophylaxis; heparin renal dose --DNR Patient has multiple medical problems involving multiple organs, Metabolic encephalopathy secondary to uremia liver failure, Dementia, rhabdomyolysis, meta bolic acidosis, Patient is critically ill, family aware, Nephrology, GI cardiology evaluated the patient Remains critically ill with poor prognosis, discussed with the Son. They want to continue HD for now as her mental status improved d/c when clinically stable - WHEN CPK LFT TRENDS DOWN Brief history; 84-year-old -[place] female patient with significant history of hypertension ,diabetes mellitus, coronary artery disease status post PCI ,CVA and seizure disorder Presented to the emergency room with complaints of generalized weakness, work-up is consistent with acute renal failure, acute liver failure, severe rhabdomyolysis, non-ST elevation AL, severe metabolic encephalopathy, multiple specialists are following the patient Nephrology initiated hemodialysis today. Very poor prognosis, after discussing extensively about the goals of treatment and CODE STATUS Patient's daughter and son requested DNR status. Advised to continue all the treatment. Important active issues: 1. Worsening renal function; nephrology initiated hemodialysis 2. Severe rhabdomyolysis; with renal and liver failure 3. Acute liver failure/transaminitis 4. Non-ST elevation AL; 5. Acute encephalopathy Hospitalist Physical General appearance: Present: mild distress, well-nourished, other (Lethargic but makes moaning sound, OPENS EYES TO VERBAL COMMEND) - EENT Eyes: Present: PERRL, EOM intact - Neck Neck: Present: supple, normal ROM - Respiratory Respiratory effort: nonlabored Respiratory: bilateral: diminished, rhonchi, negative: rales, wheezing - Cardiovascular Rhythm: regular Heart Sounds: Present: S1 & S2 - Extremities Extremities: no ischemia Extremity abnormal: edema - Abdominal General gastrointestinal: soft, non-tender, non-distended, normal bowel sounds - Integumentary Integumentary: Present: clear, warm - Psychiatric Psychiatric: other (unable to assess) - Neurologic Neurologic: verbal, follows minor commends Subjective Date of service: 08/30/19 Principal diagnosis: transaminitis Objective - Constitutional Vitals: Vital Signs - 12hr 08/31/19 08/31/19 08/31/19 03:55 08:05 08:42 Temperature 98.8 F 98.3 F Pulse Rate 71 Respiratory 20 18 20 Rate Blood Pressure 121/43 129/43 O2 Sat by Pulse 93 Oximetry 08/31/19 08/31/19 09:37 11:20 Temperature Pulse Rate 72 71 Respiratory Rate Blood Pressure 129/43 O2 Sat by Pulse Oximetry - Labs CBC & Chem 7: 08/31/19 10:57 08/31/19 09:47 Labs: Abnormal lab results 08/30/19 08/30/19 08/31/19 Range/Units 17:55 22:39 08:09 Hgb (10.1-14.3) gm/dl Hct (30.3-42.9) % Chloride (98-107) mmol/L BUN (7-17) mg/dL Creatinine (0.7-1.2) mg/dL Glucose (65-100) mg/dL POC Glucose 209 H 254 H 231 H (70-105) AST (5-40) units/L ALT (7-56) units/L Total Creatine Kinase (30-135) units/L Total Protein (6.3-8.2) g/dL Albumin (3.9-5) g/dL 08/31/19 08/31/19 08/31/19 Range/Units 09:47 09:47 10:57 Hgb 8.4 L (10.1-14.3) gm/dl Hct 25.8 L (30.3-42.9) % Chloride 95.0 L (98-107) mmol/L BUN 77 H (7-17) mg/dL Creatinine 3.7 H (0.7-1.2) mg/dL Glucose 214 H (65-100) mg/dL POC Glucose (70-105) AST 507 H (5-40) units/L ALT 426 H (7-56) units/L Total Creatine Kinase 74120 H (30-135) units/L Total Protein 5.2 L D (6.3-8.2) g/dL Albumin 2.0 L (3.9-5) g/dL 08/31/19 Range/Units 12:24 Hgb (10.1-14.3) gm/dl Hct (30.3-42.9) % Chloride (98-107) mmol/L BUN (7-17) mg/dL Creatinine (0.7-1.2) mg/dL Glucose (65-100) mg/dL POC Glucose 211 H (70-105) AST (5-40) units/L ALT (7-56) units/L Total Creatine Kinase (30-135) units/L Total Protein (6.3-8.2) g/dL Albumin (3.9-5) g/dL
[2019-08-31] MEDS: SODIUM BICARBONATE 150 MEQ in DEXTROSE 5% IN WATER 1,000 ML IV SCH (15:32)
--- NOTE | 2019-08-31 15:33 | Progress Note ---
Assessment and Plan - Patient Problems (1) Acute kidney injury (JULIANO) with acute tubular necrosis (ATN) Current Visit: Yes Status: Acute Plan to address problem: Acute tubular necrosis secondary to rhabdomyolysis. Status post hemodialysis X3 with improvement in renal indices and some improvement in mental status. CT scan of the head did not show any acute infarct, hemorrhage or mass. Kidney indices has improved and potassium is normal. Hemodialysis again tomorrow (2) Encephalopathy acute Current Visit: Yes Status: Acute Plan to address problem: Probably toxic encephalopathy which is improving with dialysis. Continue to monitor mental status (3) Acute renal failure due to rhabdomyolysis Current Visit: Yes Status: Acute Plan to address problem: Probably statin induced. Statin has been stopped. CPK is still not improving. Follow-up CPK this morning (4) Transaminasemia Current Visit: Yes Status: Acute Plan to address problem: Liver function tests not significantly changed. Follow-up liver function test off of statin (5) Hypertensive chronic kidney disease with stage 1 through stage 4 chronic kidney disease, or unspecified chronic kidney disease Current Visit: Yes Status: Acute (6) Metabolic acidosis Current Visit: Yes Status: Acute Plan to address problem: Improved back to normal with dialysis. (7) Type 2 diabetes mellitus with diabetic chronic kidney disease Current Visit: Yes Status: Chronic Plan to address problem: Blood sugar control by primary attending (8) Anemia Current Visit: Yes Status: Acute Plan to address problem: Erythropoietin on dialysis and follow-up hemoglobin Subjective Date of service: 08/31/19 Principal diagnosis: transaminitis Interval history: Patient seen lying in bed. Family at the bedside granddaughter and great- granddaughter. She is drowsy Objective - Exam Narrative Exam: Elderly -Malagasy female lying in bed in no acute distress HEENT: NCAT, nasogastric tube intact Neck: Supple, no venous distention CVS: S1S2 RRR with no murmur, rub or gallop Chest: Clear to auscultation but diminished breath sounds in lower zones Abdomen: Protuberant, soft, nontender, no organomegaly, bowel sounds are present Extremities: Mild edema Genitourinary deferred Neuro: Awake, making incomprehensible sounds, not following commands - Vital Signs Vital signs: Vital Signs - 12hr 08/31/19 08/31/19 08/31/19 03:55 08:05 08:42 Temperature 98.8 F 98.3 F Pulse Rate 71 Respiratory 20 18 20 Rate Blood Pressure 121/43 129/43 O2 Sat by Pulse 93 Oximetry 08/31/19 08/31/19 09:37 11:20 Temperature Pulse Rate 72 71 Respiratory Rate Blood Pressure 129/43 O2 Sat by Pulse Oximetry - Lab 08/31/19 10:57 08/31/19 09:47 Most recent lab results Calcium 8.5 mg/dL (8.4-10.2) 08/31/19 09:47 Magnesium 2.00 mg/dL (1.7-2.3) 08/25/19 07:01 Urine Creatinine 102.1 mg/dL (0.1-20.0) H 08/21/19 20:00 Urine Sodium 44 mmol/L 08/21/19 10:06 Urine Total Protein 176 mg/dL (5-11.8) H 08/21/19 20:00 Medications & Allergies - Medications Allergies/Adverse Reactions: Allergies No Known Allergies Allergy (Verified 11/29/13 10:39) Home Medications: Home Medications Medication Instructions Recorded Confirmed Last Taken Type ALPRAZolam [Xanax TAB] 0.5 mg PO BID 03/21/13 08/20/19 01/29/14 History Amlodipine Bes/Olmesartan Med 2.5 mg PO QDAY 03/21/13 08/20/19 1 Day Ago History [Shekhar 10-20 mg] ~08/19/19 Glimepiride [Amaryl] 2 mg PO QAM 03/21/13 08/20/19 1 Day Ago History ~08/19/19 2 mg Losartan [Cozaar] 25 mg PO QDAY 03/21/13 08/20/19 1 Day Ago History ~08/19/19 25 mg Atorvastatin [Lipitor] 40 mg PO QHS 11/13/13 08/20/19 01/29/14 History Oxycodone HCl/Acetaminophen 1 each PO Q6HR PRN #20 tablet 11/29/13 08/20/19 01/30/14 Rx [Percocet 7.5/325 mg] Aspirin EC [Ecotrin] 325 mg PO QDAY #30 tablet 02/08/14 08/20/19 Unknown Rx Clopidogrel [Plavix] 75 mg PO QDAY #30 tablet 02/08/14 08/20/19 Unknown Rx Pantoprazole [Protonix TAB] 40 mg PO QDAY #30 tablet 02/08/14 08/20/19 1 Day Ago Rx ~08/19/19 40 mg carvediloL [Coreg] 3.125 mg PO BID #60 tablet 02/08/14 08/20/19 Unknown Rx levETIRAcetam [Keppra TAB] 1,500 mg PO BID 08/20/19 08/20/19 Unknown History Citalopram [celeXA] 40 mg PO QDAY 08/22/19 08/22/19 Unknown History Active Medications: Generic Name Dose Route Start Last Admin Trade Name Freq PRN Reason Stop Dose Admin Alprazolam 0.5 mg 08/20/19 10:00 08/31/19 09:37 Xanax PO 0.5 mg BID SHARON Administration Lipase/Protease/Amylase 1 each 08/23/19 14:47 Pancreaze 10,500 Unit FEEDTUBE PRN PRN For Clogged Feeding Tube Aspirin 325 mg 08/20/19 10:00 08/31/19 09:37 Ecotrin PO 325 mg QDAY SHARON Administration Carvedilol 3.125 mg 08/20/19 22:00 08/31/19 09:37 Coreg PO 3.125 mg BID SHARON Administration Clopidogrel Bisulfate 75 mg 08/20/19 10:00 08/31/19 09:37 Plavix PO 75 mg QDAY SHARON Administration Epoetin Rahul 10,000 unit 08/25/19 09:32 08/26/19 10:29 Procrit IV 10,000 unit DESIRAE PRN Administration hemodialysis Famotidine 20 mg 08/20/19 22:00 08/31/19 09:37 Pepcid IV 20 mg DAILY SHARON Administration Heparin Sodium (Porcine) 5,000 unit 08/24/19 22:00 08/31/19 09:37 Heparin SUB-Q 5,000 unit Q12HR SHARON Administration Heparin Sodium (Porcine) 5,000 unit 08/25/19 09:32 Heparin IV DESIRAE PRN hemodialysis Hydralazine HCl 10 mg 08/20/19 09:00 08/26/19 20:15 Apresoline IV 10 mg Q4HR PRN Administration Hypertension Sodium Bicarbonate 150 meq/ 1,150 mls @ 50 mls/hr 08/22/19 09:00 08/28/19 21:03 Dextrose IV Infused DIRECT SHARON Infusion Sodium Chloride 100 mls @ 999 mls/hr 08/25/19 09:32 Nacl 0.9% IV DESIRAE PRN Hypotension Insulin Human Lispro 0 unit 08/20/19 22:00 08/31/19 13:02 Humalog SUB-Q 3 unit ACHS SHARON Administration Protocol Insulin Human NPH 10 unit 08/27/19 17:00 08/31/19 08:27 Humulin N SUB-Q 10 unit BIDDIAB SHARON Administration Levetiracetam 1,500 mg 08/23/19 22:00 08/31/19 09:37 Keppra FEEDTUBE 1,500 mg BID SHARON Administration Nitroglycerin 0.4 mg 08/20/19 19:00 Nitrostat SL .Q5MIN PRN Chest Pain Oxycodone/Acetaminophen 1 tab 08/21/19 20:37 08/31/19 11:28 Percocet 5/325 PO 1 tab Q6H PRN Administration Pain, Moderate (4-6) Simple Syrup 15 ml 08/23/19 14:47 Simple Syrup FEEDTUBE PRN PRN Hypoglycemia Simple Syrup 30 ml 08/23/19 14:47 Simple Syrup FEEDTUBE PRN PRN Hypoglycemia Sodium Bicarbonate 325 mg 08/23/19 14:47 Sodium Bicarbonate FEEDTUBE PRN PRN For Clogged Feeding Tube
--- NOTE | 2019-08-31 16:38 | Progress Note ---
Assessment and Plan /Transaminitis; unknown etiology - trending down slightly with normal ele Hepatitis panel negative, no stone in abdominal ultrasound + biliary sludge, no cholecystitis, dilated common bile duct GI following, unable to do MRI due to ICD Management supportive per GI /Rhabdomyolysis; likely from statin CpK trending upto ~28,000, placed on vigorous IV hydration w/o sig improvement - now on HD Monitor renal function, cont to Hold statin, nephrology following, CPK started to trend down /Metabolic encephalopathy; multifactorial Uremia, transaminitis, acidosis, advanced age with underlying dementia Patient is lethargic but alert, Dobbhoff in place For medications and tube feeding cont supportive care, s/p repeat CT head showed no acute CVA speech eval ordered - recommendation pending /Acute kidney injury; likely ATN Worsening renal function, nephrology following - on HD now /Metabolic acidosis: due acute kidney injury, mgt per neurology - on hCO3 drip /Severe hypokalemia; Closely monitor electrolytes and replete as needed /Non-ST elevation VA; In the setting of acute renal failure and acute rhabdo could be NSTEMI 2 However patient has risk factors, coronary artery disease - status post PCI in 2013 monitore with Serial cardiac enzymes, antiplatelets, beta-blockers echocardiogram, Cardiology evaluated - no cardiac work-up intended /Coronary artery disease status post PCI /ICD in place; monitor, cardiology evaluation if needed /Dyslipidemia; hold statin in view of rhabdo/transaminitis /Type 2 diabetes mellitus; Accu-Chek sliding scale coverage ADA diet, insulin as needed /History of seizure disorder; seizure precautions Continue Keppra /Hypertension; moderate control Continue current antihypertensives and PRN medications --DVT prophylaxis; heparin renal dose --DNR Patient has multiple medical problems involving multiple organs, Metabolic encephalopathy secondary to uremia liver failure, Dementia, rhabdomyolysis, metabolic acidosis, Patient is critically ill, family aware, Nephrology, GI cardiology evaluated the patient Remains critically ill with poor prognosis, discussed with the Son. They want to continue HD for now as her mental status improved d/c when clinically stable - WHEN CPK/ LFT TRENDS DOWN Brief history; 84-year-old -[place] female patient with significant history of hypertension ,diabetes mellitus, coronary artery disease status post PCI ,CVA and seizure disorder Presented to the emergency room with complaints of generalized weakness, work-up is consistent with acute renal failure, acute liver failure, severe rhabdomyolysis, non-ST elevation VA, severe metabolic encephalopathy, multiple specialists are following the patient Nephrology initiated hemodialysis today. Very poor prognosis, after discussing extensively about the goals of treatment and CODE STATUS Patient's daughter and son requested DNR status. Advised to continue all the treatment. Important active issues: 1. Worsening renal function; nephrology initiated hemodialysis 2. Severe rhabdomyolysis; with renal and liver failure 3. Acute liver failure/transaminitis 4. Non-ST elevation VA; 5. Acute encephalopathy Hospitalist Physical General appearance: Present: mild distress, well-nourished, other (Lethargic but makes moaning sound, OPENS EYES TO VERBAL COMMEND) - EENT Eyes: Present: PERRL, EOM intact - Neck Neck: Present: supple, normal ROM - Respiratory Respiratory effort: nonlabored Respiratory: bilateral: diminished, rhonchi, negative: rales, wheezing - Cardiovascular Rhythm: regular Heart Sounds: Present: S1 & S2 - Extremities Extremities: no ischemia Extremity abnormal: edema - Abdominal General gastrointestinal: soft, non-tender, non-distended, normal bowel sounds - Integumentary Integumentary: Present: clear, warm - Psychiatric Psychiatric: other (unable to assess) - Neurologic Neurologic: verbal, follows minor commends Subjective Date of service: 08/31/19 Principal diagnosis: transaminitis Interval history: Patient seen and examined Patient remained clinically unchanged CPK and LFT cont to trending down remains critically ill, getting HD, on TF Objective - Constitutional Vitals: Vital Signs - 12hr 08/31/19 08/31/19 08/31/19 08:05 08:42 09:37 Temperature 98.3 F Pulse Rate 72 Respiratory 18 20 Rate Blood Pressure 129/43 129/43 O2 Sat by Pulse Oximetry 08/31/19 08/31/19 08/31/19 11:20 12:15 16:26 Temperature 98.6 F 99.7 F H Pulse Rate 71 72 73 Respiratory 18 18 Rate Blood Pressure 130/48 116/45 O2 Sat by Pulse 100 99 Oximetry - Labs CBC & Chem 7: 08/31/19 10:57 09/01/19 07:32 Labs: Abnormal lab results 08/30/19 08/30/19 08/31/19 Range/Units 17:55 22:39 08:09 Hgb (10.1-14.3) gm/dl Hct (30.3-42.9) % Chloride (98-107) mmol/L BUN (7-17) mg/dL Creatinine (0.7-1.2) mg/dL Glucose (65-100) mg/dL POC Glucose 209 H 254 H 231 H (70-105) AST (5-40) units/L ALT (7-56) units/L Total Creatine Kinase (30-135) units/L Total Protein (6.3-8.2) g/dL Albumin (3.9-5) g/dL 08/31/19 08/31/19 08/31/19 Range/Units 09:47 09:47 10:57 Hgb 8.4 L (10.1-14.3) gm/dl Hct 25.8 L (30.3-42.9) % Chloride 95.0 L (98-107) mmol/L BUN 77 H (7-17) mg/dL Creatinine 3.7 H (0.7-1.2) mg/dL Glucose 214 H (65-100) mg/dL POC Glucose (70-105) AST 507 H (5-40) units/L ALT 426 H (7-56) units/L Total Creatine Kinase 29776 H (30-135) units/L Total Protein 5.2 L D (6.3-8.2) g/dL Albumin 2.0 L (3.9-5) g/dL 08/31/19 Range/Units 12:24 Hgb (10.1-14.3) gm/dl Hct (30.3-42.9) % Chloride (98-107) mmol/L BUN (7-17) mg/dL Creatinine (0.7-1.2) mg/dL Glucose (65-100) mg/dL POC Glucose 211 H (70-105) AST (5-40) units/L ALT (7-56) units/L Total Creatine Kinase (30-135) units/L Total Protein (6.3-8.2) g/dL Albumin (3.9-5) g/dL
[2019-09-01 08:50] LABS: Albumin 1.8 g/dL (3.9-5); Calcium 7.8 mg/dL (8.4-10.2)
[2019-09-01] MEDS: INSULIN LISPRO 100 UNIT/ML SUB-Q SCH ×4 (09:00→22:44)
[2019-09-01] MEDS: INSULIN NPH, HUMAN 100 UNIT/1 ML SUB-Q SCH ×2 (09:03→17:00)
[2019-09-01] MEDS: ASPIRIN EC 325 MG TAB PO SCH (09:04)
[2019-09-01] MEDS: levETIRAcetam 500 MG/5 ML ORAL LIQD FEEDTUBE SCH ×2 (09:04→22:45)
[2019-09-01] MEDS: carvediloL 3.125 MG TAB PO SCH ×2 (09:05→22:45)
[2019-09-01] MEDS: HEPARIN 5,000 UNIT/1 ML VIAL SUB-Q SCH ×2 (09:05→22:46)
[2019-09-01] MEDS: CLOPIDOGREL 75 MG TAB PO SCH (09:05)
[2019-09-01] MEDS: ALPRAZolam 0.5 MG TAB PO SCH ×2 (09:06→22:45)
[2019-09-01] MEDS: FAMOTIDINE 20 MG TAB PO SCH (09:07)
--- NOTE | 2019-09-01 09:52 | Gastroenterology Progress Note ---
<ASHISH LEDBETTER - Last Filed: 09/01/19 09:49> Assessment and Plan 1.Transaminitis -INR now WNL-preserved synthetic liver function -AST /ALT-trending down (T.stephanie and alk phos WNL) -acute hepatitis panel negative -abd CT showed sludge in gallbladder with no acute cholecystitis or biliary ductal dilatation; liver normal -abd U/S showed sludge vs tiny stones in gallbladder and CBC dilated to 10.9 mm but no obstruction lesion seen -MR/MRCP unable to be done due to AICD -etiology-likely 2/2 rhabdomyolysis, doubt obstruction (labs do not support) -no evidence of liver failure -no plan for ERCP at this time -suspect w/ improved primary process LFT's will also improve -Rhabdo management per primary team -avoid hepatotoxic agents -continue to trend labs and supportive care -poor prognosis; DNR status -no further recommendations at this time, will sign off. Please call if needed. 2.Acute kidney failure 3.severe hypokalemia 4.NSTEMI 5.CAD 6.cardiomyopathy (s/p ICD; resolving; EF 55%) 7.metabolic acidosis 8.DM 9.dyslipidemia 10.HTN Subjective Date of service: 09/01/19 Principal diagnosis: transaminitis Interval history: Patient more alert/responsive. No acute distress. Tolerating TFs. Objective - Constitutional Vitals: Temp Pulse Resp BP Pulse Ox 98.9 F 74 18 124/43 96 09/01/19 08:44 09/01/19 09:05 09/01/19 08:44 09/01/19 09:05 09/01/19 08:44 General appearance: no acute distress - Respiratory Respiratory effort: normal Respiratory: bilateral: diminished - Cardiovascular Rhythm: regular - Gastrointestinal General gastrointestinal: Present: soft, non-distended, normal bowel sounds - Integumentary Integumentary: Present: warm - Labs CBC & Chem 7: 08/31/19 10:57 09/01/19 07:32 Labs: Laboratory Results - last 24 hr 08/31/19 08/31/19 08/31/19 08:09 09:47 09:47 Hgb Hct Sodium 139 Potassium 4.5 D Chloride 95.0 L Carbon Dioxide 24 Anion Gap 25 BUN 77 H Creatinine 3.7 H Estimated GFR 14 BUN/Creatinine Ratio 21 Glucose 214 H POC Glucose 231 H Calcium 8.5 Total Bilirubin 0.30 Direct Bilirubin < 0.2 Indirect Bilirubin 0.1 AST 507 H ALT 426 H Alkaline Phosphatase 81 Total Creatine Kinase 23057 H Total Protein 5.2 L D Albumin 2.0 L Albumin/Globulin Ratio 0.6 08/31/19 08/31/19 08/31/19 10:57 12:24 16:38 Hgb 8.4 L Hct 25.8 L Sodium Potassium Chloride Carbon Dioxide Anion Gap BUN Creatinine Estimated GFR BUN/Creatinine Ratio Glucose POC Glucose 211 H 191 H Calcium Total Bilirubin Direct Bilirubin Indirect Bilirubin AST ALT Alkaline Phosphatase Total Creatine Kinase Total Protein Albumin Albumin/Globulin Ratio 08/31/19 09/01/19 20:08 07:32 Hgb Hct Sodium 140 Potassium 4.5 Chloride 94.6 L Carbon Dioxide 24 Anion Gap 26 BUN 99 H Creatinine 4.4 H Estimated GFR 12 BUN/Creatinine Ratio 23 Glucose 210 H POC Glucose 212 H Calcium 7.8 L Total Bilirubin 0.70 Direct Bilirubin Indirect Bilirubin AST 400 H ALT 396 H Alkaline Phosphatase 91 Total Creatine Kinase Total Protein 4.1 L D Albumin 1.8 L Albumin/Globulin Ratio 0.8 <DELANEY FIERRO - Last Filed: 09/01/19 22:55> Assessment and Plan Patient seen and examined. I have reviewed the advanced practitioner's evaluation, assessment, and plan, and agree with them. I note the following additions: Patient seen and examined. I have reviewed the advanced practitioner's evaluation, assessment, and plan, and agree with them. I note the following additions: LFT's stabilizing, no further GI interventions, will sign off, please call back with any questions or concerns - Patient Problems (1) Transaminasemia Current Visit: Yes Status: Acute Objective - Constitutional Vitals: Temp Pulse Resp BP Pulse Ox 98.2 F 78 28 H 117/39 92 09/01/19 20:54 09/01/19 20:54 09/01/19 20:54 09/01/19 20:54 09/01/19 20:54 - Labs CBC & Chem 7: 08/31/19 10:57 09/01/19 07:32 Labs: Laboratory Results - last 24 hr 09/01/19 09/01/19 09/01/19 07:32 07:32 08:58 Sodium 140 Potassium 4.5 Chloride 94.6 L Carbon Dioxide 24 Anion Gap 26 BUN 99 H Creatinine 4.4 H Estimated GFR 12 BUN/Creatinine Ratio 23 Glucose 210 H POC Glucose 251 H Calcium 7.8 L Total Bilirubin 0.70 AST 400 H ALT 396 H Alkaline Phosphatase 91 Total Creatine Kinase 9171 H Total Protein 4.1 L D Albumin 1.8 L Albumin/Globulin Ratio 0.8 09/01/19 09/01/19 09/01/19 13:00 18:19 22:03 Sodium Potassium Chloride Carbon Dioxide Anion Gap BUN Creatinine Estimated GFR BUN/Creatinine Ratio Glucose POC Glucose 180 H 188 H 127 H Calcium Total Bilirubin AST ALT Alkaline Phosphatase Total Creatine Kinase Total Protein Albumin Albumin/Globulin Ratio
--- NOTE | 2019-09-01 11:00 | Progress Note ---
Assessment and Plan - Patient Problems (1) Acute renal failure Current Visit: Yes Status: Acute Plan to address problem: Acute tubular necrosis secondary to rhabdomyolysis. Status post hemodialysis X3 with improvement in renal indices and some improvement in mental status. Cont HD on MWF schedule until significant renal recovery is seen (2) Acute renal failure due to rhabdomyolysis Current Visit: Yes Status: Acute Plan to address problem: Probably statin induced. Statin has been stopped. CPK is improving. (3) Hypertensive chronic kidney disease with stage 1 through stage 4 chronic kidney disease, or unspecified chronic kidney disease Current Visit: Yes Status: Acute Plan to address problem: monitor BP off meds (4) Type 2 diabetes mellitus with diabetic chronic kidney disease Current Visit: Yes Status: Chronic Plan to address problem: DM management per primary attending. (5) Metabolic acidosis Current Visit: Yes Status: Acute Plan to address problem: improved with HD (6) Encephalopathy acute Current Visit: Yes Status: Acute Plan to address problem: Probably toxic encephalopathy which is improving with dialysis. Continue to monitor mental status (7) Transaminasemia Current Visit: Yes Status: Acute Plan to address problem: Liver function tests not significantly changed. Follow-up liver function test off of statin Subjective Date of service: 09/01/19 Principal diagnosis: transaminitis Interval history: Pt awake, alert, in no acute respiratory distress Objective - Vital Signs Vital signs: Vital Signs - 12hr 08/31/19 09/01/19 09/01/19 23:54 04:16 07:50 Temperature 98.1 F 98.3 F Pulse Rate 72 74 Respiratory 18 18 20 Rate Blood Pressure 137/38 132/43 O2 Sat by Pulse 90 93 Oximetry 09/01/19 09/01/19 08:44 09:05 Temperature 98.9 F Pulse Rate 74 74 Respiratory 18 Rate Blood Pressure 124/43 124/43 O2 Sat by Pulse 96 Oximetry - General Appearance General appearance: well-developed, appears stated age, chronically ill EENT: ATNC, PERRL, mucous membranes moist Neck: no JVD Respiratory: Present: Clear to Ascultation Cardiology: regular, S1S2 Gastrointestinal: normoactive bowel sounds Integumentary: no rash, other (no edema ) Neurologic: no focal deficit, alert and oriented x3, strength 5/5, CN 3-12 i ntact Psychiatric: mood/affect appropriate, cooperative - Lab 08/31/19 10:57 09/01/19 07:32 Most recent lab results Calcium 7.8 mg/dL (8.4-10.2) L 09/01/19 07:32 Magnesium 2.00 mg/dL (1.7-2.3) 08/25/19 07:01 Urine Creatinine 102.1 mg/dL (0.1-20.0) H 08/21/19 20:00 Urine Sodium 44 mmol/L 08/21/19 10:06 Urine Total Protein 176 mg/dL (5-11.8) H 08/21/19 20:00 Medications & Allergies - Medications Allergies/Adverse Reactions: Allergies No Known Allergies Allergy (Verified 11/29/13 10:39) Home Medications: Home Medications Medication Instructions Recorded Confirmed Last Taken Type ALPRAZolam [Xanax TAB] 0.5 mg PO BID 03/21/13 08/20/19 01/29/14 History Amlodipine Bes/Olmesartan Med 2.5 mg PO QDAY 03/21/13 08/20/19 1 Day Ago History [Shekhar 10-20 mg] ~08/19/19 Glimepiride [Amaryl] 2 mg PO QAM 03/21/13 08/20/19 1 Day Ago History ~08/19/19 2 mg Losartan [Cozaar] 25 mg PO QDAY 03/21/13 08/20/19 1 Day Ago History ~08/19/19 25 mg Atorvastatin [Lipitor] 40 mg PO QHS 11/13/13 08/20/19 01/29/14 History Oxycodone HCl/Acetaminophen 1 each PO Q6HR PRN #20 tablet 11/29/13 08/20/19 01/30/14 Rx [Percocet 7.5/325 mg] Aspirin EC [Ecotrin] 325 mg PO QDAY #30 tablet 02/08/14 08/20/19 Unknown Rx Clopidogrel [Plavix] 75 mg PO QDAY #30 tablet 02/08/14 08/20/19 Unknown Rx Pantoprazole [Protonix TAB] 40 mg PO QDAY #30 tablet 02/08/14 08/20/19 1 Day Ago Rx ~08/19/19 40 mg carvediloL [Coreg] 3.125 mg PO BID #60 tablet 02/08/14 08/20/19 Unknown Rx levETIRAcetam [Keppra TAB] 1,500 mg PO BID 08/20/19 08/20/19 Unknown History Citalopram [celeXA] 40 mg PO QDAY 08/22/19 08/22/19 Unknown History Active Medications: Generic Name Dose Route Start Last Admin Trade Name Freq PRN Reason Stop Dose Admin Alprazolam 0.5 mg 08/20/19 10:00 09/01/19 09:06 Xanax PO 0.5 mg BID SHARON Administration Lipase/Protease/Amylase 1 each 08/23/19 14:[address] 10,500 Unit FEEDTUBE PRN PRN For Clogged Feeding Tube Aspirin 325 mg 08/20/19 10:00 09/01/19 09:04 Ecotrin PO 325 mg QDAY SHARON Administration Carvedilol 3.125 mg 08/20/19 22:00 09/01/19 09:05 Coreg PO 3.125 mg BID SHARON Administration Clopidogrel Bisulfate 75 mg 08/20/19 10:00 09/01/19 09:05 Plavix PO 75 mg QDAY SHARON Administration Epoetin Rahul 10,000 unit 08/25/19 09:32 08/26/19 10:29 Procrit IV 10,000 unit DESIRAE PRN Administration hemodialysis Famotidine 20 mg 09/01/19 10:00 09/01/19 09:07 Pepcid PO 20 mg DAILY SHARON Administration Heparin Sodium (Porcine) 5,000 unit 08/24/19 22:00 09/01/19 09:05 Heparin SUB-Q 5,000 unit Q12HR SHARON Administration Heparin Sodium (Porcine) 5,000 unit 08/25/19 09:32 Heparin IV DESIRAE PRN hemodialysis Hydralazine HCl 10 mg 08/20/19 09:00 08/26/19 20:15 Apresoline IV 10 mg Q4HR PRN Administration Hypertension Sodium Bicarbonate 150 meq/ 1,150 mls @ 50 mls/hr 08/22/19 09:00 08/31/19 20:55 Dextrose IV 50 mls/hr DIRECT SHARON Infusion Sodium Chloride 100 mls @ 999 mls/hr 08/25/19 09:32 Nacl 0.9% IV DESIRAE PRN Hypotension Insulin Human Lispro 0 unit 08/20/19 22:00 09/01/19 09:00 Humalog SUB-Q 4 unit ACHS SHARON Administration Protocol Insulin Human NPH 15 unit 08/31/19 17:00 09/01/19 09:03 Humulin N SUB-Q 15 unit BIDDIAB SHARON Administration Levetiracetam 1,500 mg 08/23/19 22:00 09/01/19 09:04 Keppra FEEDTUBE 1,500 mg BID SHARON Administration Nitroglycerin 0.4 mg 08/20/19 19:00 Nitrostat SL .Q5MIN PRN Chest Pain Oxycodone/Acetaminophen 1 tab 08/21/19 20:37 08/31/19 11:28 Percocet 5/325 PO 1 tab Q6H PRN Administration Pain, Moderate (4-6) Simple Syrup 15 ml 08/23/19 14:47 Simple Syrup FEEDTUBE PRN PRN Hypoglycemia Simple Syrup 30 ml 08/23/19 14:47 Simple Syrup FEEDTUBE PRN PRN Hypoglycemia Sodium Bicarbonate 325 mg 08/23/19 14:47 Sodium Bicarbonate FEEDTUBE PRN PRN For Clogged Feeding Tube
--- NOTE | 2019-09-01 13:44 | Progress Note ---
Assessment and Plan /Rhabdomyolysis; likely from statin CpK trended upto ~28,000, placed on vigorous IV hydration w/o sig improvement - now on HD Monitor renal function, cont to Hold statin, low volume HCO3 drip, nephrology following, CPK now started to trend down /Transaminitis; unknown etiology - trending down slightly with normal ele Hepatitis panel negative, no stone in abdominal ultrasound + biliary sludge, no cholecystitis, dilated common bile duct GI following, unable to do MRI due to ICD Management supportive per GI /Acute kidney injury; likely ATN Worsening renal function, nephrology following - on HD now /Metabolic encephalopathy; multifactorial Uremia, transaminitis, acidosis, advanced age with underlying dementia Patient is lethargic but alert, Dobbhoff in place For medications and tube feeding cont supportive care, s/p repeat CT head showed no acute CVA speech eval ordered - recommendation pending /Metabolic acidosis: due acute kidney injury, mgt per neurology - on hCO3 drip /Severe hypokalemia; Closely monitor electrolytes and replete as needed /Non-ST elevation [place]; In the setting of acute renal failure and acute rhabdo could be NSTEMI 2 However patient has risk factors, coronary artery disease - status post PCI in 2013 monitore with Serial cardiac enzymes, antiplatelets, beta-blockers echocardiogram, Cardiology evaluated - no cardiac work-up intended /Coronary artery disease status post PCI /ICD in place; monitor, cardiology evaluation if needed /Dyslipidemia; hold statin in view of rhabdo/transaminitis /Type 2 diabetes mellitus; Accu-Chek sliding scale coverage ADA diet, insulin as needed /History of seizure disorder; seizure precautions Continue Keppra /Hypertension; moderate control Continue current antihypertensives and PRN medications --DVT prophylaxis; heparin renal dose --DNR Patient has multiple medical problems involving multiple organs, Metabolic encephalopathy secondary to uremia liver failure, Dementia, rhabdomyolysis, metabolic acidosis, Patient is critically ill, family aware, Nephrology, GI cardiology evaluated the patient Remains critically ill with poor prognosis, discussed with the Son. They want to continue HD for now as her mental status improved d/c when clinically stable - WHEN CPK/ LFT TRENDS DOWN Brief history; 84-year-old -[place] female patient with significant history of hypertension ,diabetes mellitus, coronary artery disease status post PCI ,CVA and seizure disorder Presented to the emergency room with complaints of generalized weakness, work-up is consistent with acute renal failure, acute liver failure, severe rhabdomyolysis, non-ST elevation AL, severe metabolic encephalopathy, multiple specialists are following the patient Nephrology initiated hemodialysis today. Very poor prognosis, after discussing extensively about the goals of treatment and CODE STATUS Patient's daughter and son requested DNR status. Advised to continue all the treatment. Important active issues: 1. Worsening renal function; nephrology initiated hemodialysis 2. Severe rhabdomyolysis; with renal and liver failure 3. Acute liver failure/transaminitis 4. Non-ST elevation AL; 5. Acute encephalopathy Hospitalist Physical General appearance: Present: mild distress, well-nourished, other (Lethargic but makes moaning sound, OPENS EYES TO VERBAL COMMEND) - EENT Eyes: Present: PERRL, EOM intact - Neck Neck: Present: supple, normal ROM - Respiratory Respiratory effort: nonlabored Respiratory: bilateral: diminished, rhonchi, negative: rales, wheezing - Cardiovascular Rhythm: regular Heart Sounds: Present: S1 & S2 - Extremities Extremities: no ischemia Extremity abnormal: edema - Abdominal General gastrointestinal: soft, non-tender, non-distended, normal bowel sounds - Integumentary Integumentary: Present: clear, warm - Psychiatric Psychiatric: cooperative - Neurologic Neurologic: verbal, follows minor commends Subjective Date of service: 09/01/19 Principal diagnosis: transaminitis Interval history: Patient seen and examined Patient remained clinically unchanged CPK and LFT cont to trending down on TF, updated family, speech eval requested Objective - Constitutional Vitals: Vital Signs - 12hr 09/01/19 09/01/19 09/01/19 04:16 07:50 08:44 Temperature 98.3 F 98.9 F Pulse Rate 74 74 Respiratory 18 20 18 Rate Blood Pressure 132/43 124/43 O2 Sat by Pulse 93 96 Oximetry 09/01/19 09/01/19 09:05 12:50 Temperature 98.5 F Pulse Rate 74 70 Respiratory 18 Rate Blood Pressure 124/43 100/37 O2 Sat by Pulse 100 Oximetry - Labs CBC & Chem 7: 08/31/19 10:57 09/03/19 07:24 Labs: Abnormal lab results 08/31/19 08/31/19 09/01/19 Range/Units 16:38 20:08 07:32 Chloride 94.6 L (98-107) mmol/L BUN 99 H (7-17) mg/dL Creatinine 4.4 H (0.7-1.2) mg/dL Glucose 210 H (65-100) mg/dL POC Glucose 191 H 212 H (70-105) Calcium 7.8 L (8.4-10.2) mg/dL AST 400 H (5-40) units/L ALT 396 H (7-56) units/L Total Creatine Kinase (30-135) units/L Total Protein 4.1 L D (6.3-8.2) g/dL Albumin 1.8 L (3.9-5) g/dL 09/01/19 09/01/19 09/01/19 Range/Units 07:32 08:58 13:00 Chloride (98-107) mmol/L BUN (7-17) mg/dL Creatinine (0.7-1.2) mg/dL Glucose (65-100) mg/dL POC Glucose 251 H 180 H (70-105) Calcium (8.4-10.2) mg/dL AST (5-40) units/L ALT (7-56) units/L Total Creatine Kinase 9171 H (30-135) units/L Total Protein (6.3-8.2) g/dL Albumin (3.9-5) g/dL
[2019-09-01] MEDS: oxyCODONE /ACETAMINOPHEN 5-325MG TAB PO PRN (18:25)
[2019-09-02] MEDS: INSULIN LISPRO 100 UNIT/ML SUB-Q SCH ×4 (07:30→22:32)
[2019-09-02] MEDS: INSULIN NPH, HUMAN 100 UNIT/1 ML SUB-Q SCH ×2 (08:00→17:41)
[2019-09-02 08:18] LABS: Calcium 8.2 mg/dL (8.4-10.2)
[2019-09-02] MEDS ORDERED: SODIUM CHLORIDE 0.9% 100 ML IV PRN (09:30)
[2019-09-02] MEDS: levETIRAcetam 500 MG/5 ML ORAL LIQD FEEDTUBE SCH ×2 (10:00→22:31)
[2019-09-02] MEDS: HEPARIN 5,000 UNIT/1 ML VIAL SUB-Q SCH ×2 (10:00→22:31)
[2019-09-02] MEDS: ALPRAZolam 0.5 MG TAB PO SCH ×2 (10:00→22:31)
[2019-09-02] MEDS: carvediloL 3.125 MG TAB PO SCH ×2 (10:00→22:42)
--- NOTE | 2019-09-02 12:04 | Progress Note ---
Assessment and Plan - Patient Problems (1) Acute renal failure Current Visit: Yes Status: Acute Plan to address problem: Acute tubular necrosis secondary to rhabdomyolysis. Status post hemodialysis X3 with improvement in renal indices and some improvement in mental status. pt did not have HD yesterday, arranged HD on TTS schedule until significant renal recovery is seen (2) Acute renal failure due to rhabdomyolysis Current Visit: Yes Status: Acute Plan to address problem: Probably statin induced. Statin has been stopped. CPK is improving. (3) Hypertensive chronic kidney disease with stage 1 through stage 4 chronic kidney disease, or unspecified chronic kidney disease Current Visit: Yes Status: Acute Plan to address problem: monitor BP off meds (4) Type 2 diabetes mellitus with diabetic chronic kidney disease Current Visit: Yes Status: Chronic Plan to address problem: DM management per primary attending. (5) Metabolic acidosis Current Visit: Yes Status: Acute Plan to address problem: improved with HD (6) Encephalopathy acute Current Visit: Yes Status: Acute Plan to address problem: Probably toxic encephalopathy which is improving with dialysis. Continue to monitor mental status (7) Transaminasemia Current Visit: Yes Status: Acute Plan to address problem: Liver function tests not significantly changed. Follow-up liver function test off of statin Subjective Date of service: 09/02/19 Principal diagnosis: transaminitis Interval history: Pt awake, alert, in no acute respiratory distress Objective - Vital Signs Vital signs: Vital Signs - 12hr 09/02/19 09/02/19 09/02/19 05:01 10:03 10:08 Temperature 98.5 F 99.1 F Pulse Rate 73 70 70 Respiratory 24 16 Rate Blood Pressure 119/41 117/44 107/40 O2 Sat by Pulse 91 Oximetry O2 Sat by Pulse 97 Oximetry [ Bilateral Throughout] 09/02/19 09/02/19 09/02/19 10:15 10:30 10:45 Temperature Pulse Rate 68 70 70 Respiratory Rate Blood Pressure 108/44 103/40 90/40 O2 Sat by Pulse Oximetry O2 Sat by Pulse Oximetry [ Bilateral Throughout] 09/02/19 09/02/19 09/02/19 11:00 11:15 11:30 Temperature Pulse Rate 68 72 59 L Respiratory Rate Blood Pressure 102/46 95/46 110/50 O2 Sat by Pulse Oximetry O2 Sat by Pulse Oximetry [ Bilateral Throughout] 09/02/19 11:45 Temperature Pulse Rate 61 Respiratory Rate Blood Pressure 114/42 O2 Sat by Pulse Oximetry O2 Sat by Pulse Oximetry [ Bilateral Throughout] - General Appearance General appearance: well-developed, well-nourished, appears stated age EENT: ATNC, PERRL, mucous membranes moist Neck: no JVD Respiratory: Present: Clear to Ascultation Cardiology: regular, S1S2 Gastrointestinal: normoactive bowel sounds Integumentary: no rash, other (no edema ) Neurologic: no focal deficit, alert and oriented x3, strength 5/5, CN 3-12 intact Psychiatric: mood/affect appropriate, cooperative - Lab 08/31/19 10:57 09/02/19 07:48 Most recent lab results Calcium 8.2 mg/dL (8.4-10.2) L 09/02/19 07:48 Magnesium 2.00 mg/dL (1.7-2.3) 08/25/19 07:01 Urine Creatinine 102.1 mg/dL (0.1-20.0) H 08/21/19 20:00 Urine Sodium 44 mmol/L 08/21/19 10:06 Urine Total Protein 176 mg/dL (5-11.8) H 08/21/19 20:00 Medications & Allergies - Medications Allergies/Adverse Reactions: Allergies No Known Allergies Allergy (Verified 11/29/13 10:39) Home Medications: Home Medications Medication Instructions Recorded Confirmed Last Taken Type ALPRAZolam [Xanax TAB] 0.5 mg PO BID 03/21/13 08/20/19 01/29/14 History Amlodipine Bes/Olmesartan Med 2.5 mg PO QDAY 03/21/13 08/20/19 1 Day Ago History [Shekhar 10-20 mg] ~08/19/19 Glimepiride [Amaryl] 2 mg PO QAM 03/21/13 08/20/19 1 Day Ago History ~08/19/19 2 mg Losartan [Cozaar] 25 mg PO QDAY 03/21/13 08/20/19 1 Day Ago History ~08/19/19 25 mg Atorvastatin [Lipitor] 40 mg PO QHS 11/13/13 08/20/19 01/29/14 History Oxycodone HCl/Acetaminophen 1 each PO Q6HR PRN #20 tablet 11/29/13 08/20/19 01/30/14 Rx [Percocet 7.5/325 mg] Aspirin EC [Ecotrin] 325 mg PO QDAY #30 tablet 02/08/14 08/20/19 Unknown Rx Clopidogrel [Plavix] 75 mg PO QDAY #30 tablet 02/08/14 08/20/19 Unknown Rx Pantoprazole [Protonix TAB] 40 mg PO QDAY #30 tablet 02/08/14 08/20/19 1 Day Ago Rx ~08/19/19 40 mg carvediloL [Coreg] 3.125 mg PO BID #60 tablet 02/08/14 08/20/19 Unknown Rx levETIRAcetam [Keppra TAB] 1,500 mg PO BID 08/20/19 08/20/19 Unknown History Citalopram [celeXA] 40 mg PO QDAY 08/22/19 08/22/19 Unknown History Active Medications: Generic Name Dose Route Start Last Admin Trade Name Freq PRN Reason Stop Dose Admin Alprazolam 0.5 mg 08/20/19 10:00 09/01/19 22:45 Xanax PO 0.5 mg BID SHARON Administration Lipase/Protease/Amylase 1 each 08/23/19 14:[address] 10,500 Unit FEEDTUBE PRN PRN For Clogged Feeding Tube Aspirin 325 mg 08/20/19 10:00 09/01/19 09:04 Ecotrin PO 325 mg QDAY SHARON Administration Carvedilol 3.125 mg 08/20/19 22:00 09/01/19 22:45 Coreg PO Not Given BID [facility] Clopidogrel Bisulfate 75 mg 08/20/19 10:00 09/01/19 09:05 Plavix PO 75 mg QDAY SHARON Administration Epoetin Rahul 10,000 unit 08/25/19 09:32 08/26/19 10:29 Procrit IV 10,000 unit DESIRAE PRN Administration hemodialysis Famotidine 20 mg 09/01/19 10:00 09/01/19 09:07 Pepcid PO 20 mg DAILY SHARON Administration Heparin Sodium (Porcine) 5,000 unit 08/24/19 22:00 09/01/19 22:46 Heparin SUB-Q 5,000 unit Q12HR SHARON Administration Heparin Sodium (Porcine) 5,000 unit 08/25/19 09:32 Heparin IV DESIRAE PRN hemodialysis Hydralazine HCl 10 mg 08/20/19 09:00 08/26/19 20:15 Apresoline IV 10 mg Q4HR PRN Administration Hypertension Sodium Chloride 100 mls @ 999 mls/hr 09/02/19 09:30 Nacl 0.9% IV DESIRAE PRN Hypotension Insulin Human Lispro 0 unit 08/20/19 22:00 09/01/19 22:44 Humalog SUB-Q Not Given ACHS [facility] Protocol Insulin Human NPH 15 unit 08/31/19 17:00 09/01/19 17:00 Humulin N SUB-Q 15 unit BIDDIAB SHARON Administration Levetiracetam 1,500 mg 08/23/19 22:00 09/01/19 22:45 Keppra FEEDTUBE 1,500 mg BID SHARON Administration Nitroglycerin 0.4 mg 08/20/19 19:00 Nitrostat SL .Q5MIN PRN Chest Pain Oxycodone/Acetaminophen 1 tab 08/21/19 20:37 09/01/19 18:25 Percocet 5/325 PO 1 tab Q6H PRN Administration Pain, Moderate (4-6) Simple Syrup 15 ml 08/23/19 14:47 Simple Syrup FEEDTUBE PRN PRN Hypoglycemia Simple Syrup 30 ml 08/23/19 14:47 Simple Syrup FEEDTUBE PRN PRN Hypoglycemia Sodium Bicarbonate 325 mg 08/23/19 14:47 Sodium Bicarbonate FEEDTUBE PRN PRN For Clogged Feeding Tube
[2019-09-02] MEDS: EPOETIN ALFA 10,000 UNIT/1 ML INJ IV PRN (12:07)
[2019-09-02] MEDS ORDERED: SODIUM CHLORIDE*PRIMING MACHINE ONLY FOR DIALYSIS MC ONE (12:07)
[2019-09-02] MEDS: CLOPIDOGREL 75 MG TAB PO SCH (17:39)
[2019-09-02] MEDS: FAMOTIDINE 20 MG TAB PO SCH (17:40)
[2019-09-02] MEDS: ASPIRIN EC 325 MG TAB PO SCH (17:40)
[2019-09-02] MEDS: oxyCODONE /ACETAMINOPHEN 5-325MG TAB PO PRN ×2 (17:43→22:47)
[2019-09-03] MEDS: oxyCODONE /ACETAMINOPHEN 5-325MG TAB PO PRN ×3 (06:43→17:58)
[2019-09-03 08:12] LABS: Calcium 8.4 mg/dL (8.4-10.2)
--- NOTE | 2019-09-03 08:56 | Progress Note ---
Assessment and Plan /Acute kidney injury; likely ATN Worsening renal function, nephrology following - on HD now need outpt HD setup, vascular consulted for permcath placement /Rhabdomyolysis; likely from statin CpK trended upto ~28,000, placed on vigorous IV hydration w/o sig improvement - now on HD Monitor renal function, cont to Hold statin, low volume HCO3 drip, nephrology following, CPK now continues to trend down /Transaminitis; unknown etiology - trending down with normal ele Hepatitis panel negative, no stone in abdominal ultrasound + biliary sludge, no cholecystitis, dilated common bile duct GI following, unable to do MRI due to ICD Management supportive per GI /Metabolic encephalopathy; multifactorial - improved Uremia, transaminitis, acidosis, advanced age with underlying dementia Patient is lethargic but alert, Dobbhoff in place For medications and tube feeding cont supportive care, s/p repeat CT head showed no acute CVA speech eval ordered - recommendation pending /Metabolic acidosis: due acute kidney injury, mgt per neurology - on hCO3 drip /Severe hypokalemia; Closely monitor electrolytes and replete as needed /Non-ST elevation [place]; In the setting of acute renal failure and acute rhabdo could be NSTEMI 2 However patient has risk factors, coronary artery disease - status post PCI in 2013 monitore with Serial cardiac enzymes, antiplatelets, beta-blockers echocardiogram, Cardiology evaluated - no cardiac work-up intended /Coronary artery disease status post PCI /ICD in place; monitor, cardiology evaluation if needed /Dyslipidemia; hold statin in view of rhabdo/transaminitis /Type 2 diabetes mellitus; Accu-Chek sliding scale coverage ADA diet, insulin as needed /History of seizure disorder; seizure precautions Continue Keppra /Hypertension; moderate control Continue current antihypertensives and PRN medications --DVT prophylaxis; heparin renal dose --DNR Patient has multiple medical problems involving multiple organs, Metabolic encephalopathy secondary to uremia liver failure, Dementia, rhabdomyolysis, metabolic acidosis, Patient is critically ill, family aware, Nephrology, GI cardiology evaluated the patient. Discussed with the Son, family want to continue HD for now as her mental status improved d/c when clinically stable - WHEN CPK/ LFT TRENDS DOWN. Need outpt HD setup, speech eval pending Brief history; 84-year-old -Greek female patient with significant history of hypertension ,diabetes mellitus, coronary artery disease status post PCI ,CVA and seizure disorder Presented to the emergency room with complaints of generalized weakness, work-up is consistent with acute renal failure, acute liver failure, severe rhabdomyolysis, non-ST elevation [place], severe metabolic encephalopathy, multiple specialists are following the patient Nephrology initiated hemodialysis today. Very poor prognosis, after discussing extensively about the goals of treatment and CODE STATUS Patient's daughter and son requested DNR status. Advised to continue all the treatment. Important active issues: 1. Worsening renal function; nephrology initiated hemodialysis - need outpt setup 2. Severe rhabdomyolysis; with renal and liver failure due to statin, improving 3. Acute liver failure/transaminitis - trending down 4. Non-ST elevation [place]; medical Mx 5. Acute encephalopathy, improved, pending speech eval Hospitalist Physical General appearance: Present: no distress, well-nourished, other (OPENS EYES TO VERBAL COMMEND) - EENT Eyes: Present: PERRL, EOM intact - Neck Neck: Present: supple, normal ROM - Respiratory Respiratory effort: nonlabored Respiratory: bilateral: diminished, rhonchi, negative: rales, wheezing - Cardiovascular Rhythm: regular Heart Sounds: Present: S1 & S2 - Extremities Extremities: no ischemia Extremity abnormal: edema - Abdominal General gastrointestinal: soft, non-tender, non-distended, normal bowel sounds - Integumentary Integumentary: Present: clear, warm - Psychiatric Psychiatric: cooperative - Neurologic Neurologic: verbal, follows minor commends Subjective Date of service: 09/02/19 Principal diagnosis: transaminitis Interval history: Patient seen and examined Patient remained clinically unchanged CPK and LFT cont to trending down on TF, updated family, speech eval requested but pending family wished to cont HD, consulted IR for permcath placement Objective - Constitutional Vitals: Vital Signs - 12hr 09/02/19 09/03/19 09/03/19 22:42 00:27 05:01 Temperature 97.5 F L 97.9 F Pulse Rate 71 70 74 Respiratory 18 16 Rate Blood Pressure 102/38 100/34 126/40 O2 Sat by Pulse 97 98 Oximetry - Labs CBC & Chem 7: 09/04/19 07:19 09/04/19 07:19 Labs: Abnormal lab results 09/02/19 09/02/19 09/02/19 Range/Units 11:09 17:42 22:10 Chloride (98-107) mmol/L BUN (7-17) mg/dL Creatinine (0.7-1.2) mg/dL Glucose (65-100) mg/dL POC Glucose 220 H 229 H 150 H (70-105) AST (5-40) units/L ALT (7-56) units/L Total Creatine Kinase (30-135) units/L Total Protein (6.3-8.2) g/dL Albumin (3.9-5) g/dL 09/03/19 Range/Units 07:24 Chloride 96.5 L (98-107) mmol/L BUN 74 H (7-17) mg/dL Creatinine 3.5 H (0.7-1.2) mg/dL Glucose 156 H (65-100) mg/dL POC Glucose (70-105) AST 131 H (5-40) units/L ALT 267 H (7-56) units/L Total Creatine Kinase 2405 H (30-135) units/L Total Protein 5.3 L (6.3-8.2) g/dL Albumin 2.0 L (3.9-5) g/dL
[2019-09-03] MEDS: INSULIN LISPRO 100 UNIT/ML SUB-Q SCH ×4 (09:50→22:29)
[2019-09-03] MEDS: INSULIN NPH, HUMAN 100 UNIT/1 ML SUB-Q SCH ×2 (09:50→19:07)
--- NOTE | 2019-09-03 10:31 | Progress Note ---
Assessment and Plan - Patient Problems (1) Acute renal failure Current Visit: Yes Status: Acute Plan to address problem: Acute tubular necrosis secondary to rhabdomyolysis. no significant renal recovery seen. recommend temporary outpatient HD placement on TTS schedule, pt is s/p permcath placement. d/w Dr House (2) Acute renal failure due to rhabdomyolysis Current Visit: Yes Status: Acute Plan to address problem: Probably statin induced. Statin has been stopped. CPK is improving. (3) Hypertensive chronic kidney disease with stage 1 through stage 4 chronic kidney disease, or unspecified chronic kidney disease Current Visit: Yes Status: Acute Plan to address problem: monitor BP off meds (4) Type 2 diabetes mellitus with diabetic chronic kidney disease Current Visit: Yes Status: Chronic Plan to address problem: DM management per primary attending. (5) Metabolic acidosis Current Visit: Yes Status: Acute Plan to address problem: improved with HD (6) Encephalopathy acute Current Visit: Yes Status: Acute Plan to address problem: Probably toxic encephalopathy which is improving with dialysis. Continue to monitor mental status (7) Transaminasemia Current Visit: Yes Status: Acute Plan to address problem: Liver function tests not significantly changed. Follow-up liver function test off of statin Subjective Date of service: 09/03/19 Principal diagnosis: transaminitis Interval history: Pt awake, alert, in no acute respiratory distress. s/p permcath placement Objective - Vital Signs Vital signs: Vital Signs - 12hr 09/02/19 09/03/19 09/03/19 22:42 00:27 05:01 Temperature 97.5 F L 97.9 F Pulse Rate 71 70 74 Respiratory 18 16 Rate Blood Pressure 102/38 100/34 126/40 O2 Sat by Pulse 97 98 Oximetry - General Appearance General appearance: well-developed, appears stated age, chronically ill EENT: ATNC, PERRL, mucous membranes moist Neck: no JVD, other (Rt IJ permcath in place) Respiratory: Present: Clear to Ascultation Cardiology: regular, S1S2 Gastrointestinal: normoactive bowel sounds Integumentary: no rash, other (no edema ) Neurologic: no focal deficit, alert and oriented x3, strength 5/5, CN 3-12 intact Psychiatric: mood/affect appropriate, cooperative - Lab 08/31/19 10:57 09/03/19 07:24 Most recent lab results Calcium 8.4 mg/dL (8.4-10.2) 09/03/19 07:24 Magnesium 2.00 mg/dL (1.7-2.3) 08/25/19 07:01 Urine Creatinine 102.1 mg/dL (0.1-20.0) H 08/21/19 20:00 Urine Sodium 44 mmol/L 08/21/19 10:06 Urine Total Protein 176 mg/dL (5-11.8) H 08/21/19 20:00 Medications & Allergies - Medications Allergies/Adverse Reactions: Allergies No Known Allergies Allergy (Verified 11/29/13 10:39) Home Medications: Home Medications Medication Instructions Recorded Confirmed Last Taken Type ALPRAZolam [Xanax TAB] 0.5 mg PO BID 03/21/13 08/20/19 01/29/14 History Amlodipine Bes/Olmesartan Med 2.5 mg PO QDAY 03/21/13 08/20/19 1 Day Ago History [Shekhar 10-20 mg] ~08/19/19 Glimepiride [Amaryl] 2 mg PO QAM 03/21/13 08/20/19 1 Day Ago History ~08/19/19 2 mg Losartan [Cozaar] 25 mg PO QDAY 03/21/13 08/20/19 1 Day Ago History ~08/19/19 25 mg Atorvastatin [Lipitor] 40 mg PO QHS 11/13/13 08/20/19 01/29/14 History Oxycodone HCl/Acetaminophen 1 each PO Q6HR PRN #20 tablet 11/29/13 08/20/19 01/30/14 Rx [Percocet 7.5/325 mg] Aspirin EC [Ecotrin] 325 mg PO QDAY #30 tablet 02/08/14 08/20/19 Unknown Rx Clopidogrel [Plavix] 75 mg PO QDAY #30 tablet 02/08/14 08/20/19 Unknown Rx Pantoprazole [Protonix TAB] 40 mg PO QDAY #30 tablet 02/08/14 08/20/19 1 Day Ago Rx ~08/19/19 40 mg carvediloL [Coreg] 3.125 mg PO BID #60 tablet 02/08/14 08/20/19 Unknown Rx levETIRAcetam [Keppra TAB] 1,500 mg PO BID 08/20/19 08/20/19 Unknown History Citalopram [celeXA] 40 mg PO QDAY 08/22/19 08/22/19 Unknown History Active Medications: Generic Name Dose Route Start Last Admin Trade Name Freq PRN Reason Stop Dose Admin Alprazolam 0.5 mg 08/20/19 10:00 09/02/19 22:31 Xanax PO 0.5 mg BID SHARON Administration Lipase/Protease/Amylase 1 each 08/23/19 14:47 Pancreaze 10,500 Unit FEEDTUBE PRN PRN For Clogged Feeding Tube Aspirin 325 mg 08/20/19 10:00 09/02/19 17:40 Ecotrin PO 325 mg QDAY SHARON Administration Carvedilol 3.125 mg 08/20/19 22:00 09/02/19 22:42 Coreg PO Not Given BID [facility] Clopidogrel Bisulfate 75 mg 08/20/19 10:00 09/02/19 17:39 Plavix PO 75 mg QDAY SHARON Administration Epoetin Rahul 10,000 unit 08/25/19 09:32 09/02/19 12:07 Procrit IV 10,000 unit DESIRAE PRN Administration hemodialysis Famotidine 20 mg 09/01/19 10:00 09/02/19 17:40 Pepcid PO 20 mg DAILY SHARON Administration Heparin Sodium (Porcine) 5,000 unit 08/24/19 22:00 09/02/19 22:31 Heparin SUB-Q 5,000 unit Q12HR SHARON Administration Heparin Sodium (Porcine) 5,000 unit 08/25/19 09:32 Heparin IV DESIRAE PRN hemodialysis Hydralazine HCl 10 mg 08/20/19 09:00 08/26/19 20:15 Apresoline IV 10 mg Q4HR PRN Administration Hypertension Sodium Chloride 100 mls @ 999 mls/hr 09/02/19 09:30 Nacl 0.9% IV DESIRAE PRN Hypotension Insulin Human Lispro 0 unit 08/20/19 22:00 09/03/19 09:50 Humalog SUB-Q 2 unit ACHS SHARON Administration Protocol Insulin Human NPH 15 unit 08/31/19 17:00 09/03/19 09:50 Humulin N SUB-Q 15 unit BIDDIAB SHARON Administration Levetiracetam 1,500 mg 08/23/19 22:00 09/02/19 22:31 Keppra FEEDTUBE 1,500 mg BID SHARON Administration Nitroglycerin 0.4 mg 08/20/19 19:00 Nitrostat SL .Q5MIN PRN Chest Pain Oxycodone/Acetaminophen 1 tab 08/21/19 20:37 09/03/19 06:43 Percocet 5/325 PO 1 tab Q6H PRN Administration Pain, Moderate (4-6) Simple Syrup 15 ml 08/23/19 14:47 Simple Syrup FEEDTUBE PRN PRN Hypoglycemia Simple Syrup 30 ml 08/23/19 14:47 Simple Syrup FEEDTUBE PRN PRN Hypoglycemia Sodium Bicarbonate 325 mg 08/23/19 14:47 Sodium Bicarbonate FEEDTUBE PRN PRN For Clogged Feeding Tube
[2019-09-03] MEDS: CLOPIDOGREL 75 MG TAB PO SCH (12:10)
[2019-09-03] MEDS: ASPIRIN EC 325 MG TAB PO SCH (12:10)
[2019-09-03] MEDS: levETIRAcetam 500 MG/5 ML ORAL LIQD FEEDTUBE SCH ×2 (12:10→22:27)
[2019-09-03] MEDS: carvediloL 3.125 MG TAB PO SCH ×2 (12:10→22:26)
[2019-09-03] MEDS: FAMOTIDINE 20 MG TAB PO SCH (12:11)
[2019-09-03] MEDS: HEPARIN 5,000 UNIT/1 ML VIAL SUB-Q SCH ×2 (12:11→22:27)
[2019-09-03] MEDS: ALPRAZolam 0.5 MG TAB PO SCH ×2 (12:11→22:26)
--- NOTE | 2019-09-03 20:02 | XRay Report ---
ABDOMEN 1 VIEW(S) INDICATION: dobhoff placement COMPARISON: None available. FINDINGS: Dobbhoff feeding tube has its tip in the stomach Bowel gas pattern: Within normal limits. No dilated loops of large or small bowel. Free air: None. Calcified gallstones: None seen. Calcified urinary tract calculi: None seen. Additional Findings: None. Skeletal structures: No acute abnormality. IMPRESSION: 1. No acute findings. Signer Name: Leonardo Morin MD Signed: 09/03/2019 7:58 PM Workstation Name: [id number]
--- NOTE | 2019-09-03 22:00 | Progress Note ---
Assessment and Plan /Acute kidney injury; likely ATN Worsening renal function, nephrology following - on HD now need outpt HD setup, s/p permcath placement by vascular /Rhabdomyolysis; likely from statin CpK trended upto ~28,000, placed on vigorous IV hydration w/o sig improvement - now on HD Monitor renal function, cont to Hold statin, low volume HCO3 drip, nephrology following, CPK now continues to trend down /Transaminitis; unknown etiology - trending down with normal ele Hepatitis panel negative, no stone in abdominal ultrasound + biliary sludge, no cholecystitis, dilated common bile duct GI following, unable to do MRI due to ICD Management supportive per GI /Metabolic encephalopathy; multifactorial - improved Uremia, transaminitis, acidosis, advanced age with underlying dementia Patient is lethargic but alert, Dobbhoff in place For medications and tube feeding cont supportive care, s/p repeat CT head showed no acute CVA speech eval ordered - recommended pureed diet with necter thick liquid /Metabolic acidosis: due acute kidney injury, mgt per neurology - placed on hCO3 drip, now also on HD /Severe hypokalemia; Closely monitor electrolytes and replete as needed /Non-ST elevation [place]; In the setting of acute renal failure and acute rhabdo could be NSTEMI 2 However patient has risk factors, coronary artery disease - status post PCI in 2013 monitore with Serial cardiac enzymes, antiplatelets, beta-blockers echocardiogr am, Cardiology evaluated - no cardiac work-up intended /Coronary artery disease status post PCI /ICD in place; monitor, cardiology evaluation if needed /Dyslipidemia; hold statin in view of rhabdo/transaminitis /Type 2 diabetes mellitus; Accu-Chek sliding scale coverage ADA diet, insulin as needed /History of seizure disorder; seizure precautions Continue Keppra /Hypertension; moderate control Continue current antihypertensives and PRN medications --DVT prophylaxis; heparin renal dose --DNR Patient has multiple medical problems involving multiple organs, Metabolic encephalopathy secondary to uremia liver failure, Dementia, rhabdomyolysis, metabolic acidosis, Patient is critically ill, family aware, Nephrology, GI cardiology evaluated the patient. Discussed with the Son, family want to continue HD for now as her mental status improved d/c when clinically stable - WHEN CPK/ LFT TRENDS DOWN. Need outpt HD setup, needs DEWEY Brief history; 84-year-old -[place] female patient with significant history of hypertension ,diabetes mellitus, coronary artery disease status post PCI ,CVA and seizure disorder Presented to the emergency room with complaints of generalized weakness, work-up is consistent with acute renal failure, acute liver failure, severe rhabdomyolysis, non-ST elevation [place], severe metabolic encephalopathy, multiple specialists are following the patient Nephrology initiated hemodialysis today. Very poor prognosis, after discussing extensively about the goals of treatment and CODE STATUS Patient's daughter and son requested DNR status. Advised to continue all the treatment. Important active issues: 1. Worsening renal function; nephrology initiated hemodialysis - need outpt setup 2. Severe rhabdomyolysis; with renal and liver failure due to statin, improving 3. Acute liver failure/transaminitis - trending down 4. Non-ST elevation [place]; medical Mx 5. Acute encephalopathy, improved, on pureed diet Hospitalist Physical General appearance: Present: no distress, well-nourished, other (OPENS EYES TO VERBAL COMMEND) - EENT Eyes: Present: PERRL, EOM intact - Neck Neck: Present: supple, normal ROM - Respiratory Respiratory effort: nonlabored Respiratory: bilateral: diminished, rhonchi, negative: rales, wheezing - Cardiovascular Rhythm: regular Heart Sounds: Present: S1 & S2 - Extremities Extremities: no ischemia Extremity abnormal: edema - Abdominal General gastrointestinal: soft, non-tender, non-distended, normal bowel sounds - Integumentary Integumentary: Present: clear, warm - Psychiatric Psychiatric: cooperative - Neurologic Neurologic: verbal, follows minor commends Subjective Date of service: 09/03/19 Principal diagnosis: transaminitis Interval history: Patient seen and examined Patient remained clinically unchanged CPK and LFT cont to trending down on TF, updated family, speech recommended pureed diet family wished to cont HD, CM notified for outpt setup Objective - Constitutional Vitals: Vital Signs - 12hr 09/03/19 09/03/19 11:20 12:10 Temperature 97.0 F L Pulse Rate 73 73 Respiratory 20 Rate Blood Pressure 127/40 127/40 O2 Sat by Pulse 96 Oximetry - Labs CBC & Chem 7: 09/04/19 07:19 09/04/19 07:19 Labs: Abnormal lab results 09/02/19 09/03/19 09/03/19 Range/Units 22:10 07:24 11:31 Chloride 96.5 L (98-107) mmol/L BUN 74 H (7-17) mg/dL Creatinine 3.5 H (0.7-1.2) mg/dL Glucose 156 H (65-100) mg/dL POC Glucose 150 H 188 H (70-105) AST 131 H (5-40) units/L ALT 267 H (7-56) units/L Total Creatine Kinase 2405 H (30-135) units/L Total Protein 5.3 L (6.3-8.2) g/dL Albumin 2.0 L (3.9-5) g/dL 09/03/19 Range/Units 17:07 Chloride (98-107) mmol/L BUN (7-17) mg/dL Creatinine (0.7-1.2) mg/dL Glucose (65-100) mg/dL POC Glucose 151 H (70-105) AST (5-40) units/L ALT (7-56) units/L Total Creatine Kinase (30-135) units/L Total Protein (6.3-8.2) g/dL Albumin (3.9-5) g/dL
[2019-09-04] MEDS: INSULIN LISPRO 100 UNIT/ML SUB-Q SCH ×4 (07:30→21:41)
[2019-09-04 07:37] LABS: Basophils % (Auto) 0.1 % (0.0-1.8); Eosinophils # (Auto) 0.1 K/mm3 (0.0-0.4); Eosinophils % (Auto) 0.5 % (0.0-4.3); Hematocrit 23.2 % (30.3-42.9); Hemoglobin 7.6 gm/dl (10.1-14.3); Lymphocytes # (Auto) 1.2 K/mm3 (1.2-5.4); Lymphocytes % (Auto) 9.3 % (13.4-35.0); Mean Corpuscular HGB Conc 33 % (30-34); Mean Corpuscular Volume 98 fl (79-97); Monocytes # (Auto) 0.9 K/mm3 (0.0-0.8); Platelet Count 252 K/mm3 (140-440); Red Blood Count 2.35 M/mm3 (3.65-5.03); Red Cell Distribution Width 16.3 % (13.2-15.2)
[2019-09-04 07:52] LABS: Albumin 1.9 g/dL (3.9-5); Calcium 8.4 mg/dL (8.4-10.2)
[2019-09-04] MEDS: INSULIN NPH, HUMAN 100 UNIT/1 ML SUB-Q SCH ×2 (08:00→17:31)
[2019-09-04] MEDS: carvediloL 3.125 MG TAB PO SCH ×2 (10:00→21:05)
[2019-09-04] MEDS: HEPARIN 5,000 UNIT/1 ML VIAL SUB-Q SCH ×2 (10:00→21:05)
--- NOTE | 2019-09-04 10:25 | Progress Note ---
Assessment and Plan /Acute kidney injury; likely ATN Worsening renal function, nephrology following - on HD now need outpt HD setup, s/p permcath placement by vascular /Rhabdomyolysis; likely from statin CpK trended upto ~28,000, placed on vigorous IV hydration w/o sig improvement - now on HD Monitor renal function, cont to Hold statin, low volume HCO3 drip, nephrology following, CPK now continues to trend down /Transaminitis; unknown etiology - trending down with normal ele Hepatitis panel negative, no stone in abdominal ultrasound + biliary sludge, no cholecystitis, dilated common bile duct GI following, unable to do MRI due to ICD Management supportive per GI /Metabolic encephalopathy; multifactorial - improved Uremia, transaminitis, acidosis, advanced age with underlying dementia Patient is lethargic but alert, Dobbhoff in place For medications and tube feeding cont supportive care, s/p repeat CT head showed no acute CVA speech eval ordered - recommended pureed diet with necter thick liquid /Metabolic acidosis: due acute kidney injury, mgt per neurology - placed on hCO3 drip, now also on HD /Severe hypokalemia; resolved Closely monitor electrolytes and replete as needed /Non-ST elevation MS; In the setting of acute renal failure and acute rhabdo could be NSTEMI 2 However patient has risk factors, coronary artery disease - status post PCI in 2013 monitore with Serial cardiac enzymes, antiplatelets, beta-blockers echo cardiogram, Cardiology evaluated - no cardiac work-up intended /Coronary artery disease status post PCI /ICD in place; monitor, cardiology evaluation if needed /Dyslipidemia; hold statin in view of rhabdo/transaminitis /Type 2 diabetes mellitus; Accu-Chek sliding scale coverage ADA diet, insulin as needed /History of seizure disorder; seizure precautions Continue Keppra /Hypertension; moderate control Continue current antihypertensives and PRN medications --DVT prophylaxis; heparin renal dose --DNR Patient has multiple medical problems involving multiple organs, Metabolic encephalopathy secondary to uremia liver failure, Dementia, rhabdomyolysis, metabolic acidosis, Patient is critically ill, family aware, Nephrology, GI cardiology evaluated the patient. Discussed with the Son, family want to continue HD for now as her mental status improved d/c when clinically stable - WHEN CPK/ LFT TRENDS DOWN. Need outpt HD setup, needs [facility] Brief history; 84-year-old -[place] female patient with significant history of hypertension ,diabetes mellitus, coronary artery disease status post PCI ,CVA and seizure disorder Presented to the emergency room with complaints of generalized weakness, work-up is consistent with acute renal failure, acute liver failure, severe rhabdomyolysis due to statin use, non-ST elevation MS, severe metabolic encephalopathy, multiple specialists are following the patient. Nephrology initiated hemodialysis, after discussing extensively about the goals of treatment and CODE STATUS Patient's daughter and son requested DNR status. Advised to continue all the treatment. Important active issues: 1. Worsening renal function; nephrology initiated hemodialysis - need outpt setup 2. Severe rhabdomyolysis; with renal and liver failure due to statin, improving 3. Acute liver failure/transaminitis - trending down 4. Non-ST elevation MS; medical Mx 5. Acute encephalopathy, improved, placed on pureed diet Hospitalist Physical General appearance: Present: no distress, well-nourished, other (OPENS EYES TO VERBAL COMMEND) - EENT Eyes: Present: PERRL, EOM intact - Neck Neck: Present: supple, normal ROM - Respiratory Respiratory effort: nonlabored Respiratory: bilateral: diminished, rhonchi, negative: rales, wheezing - Cardiovascular Rhythm: regular Heart Sounds: Present: S1 & S2 - Extremities Extremities: no ischemia Extremity abnormal: edema - Abdominal General gastrointestinal: soft, non-tender, non-distended, normal bowel sounds - Integumentary Integumentary: Present: clear, warm - Psychiatric Psychiatric: cooperative - Neurologic Neurologic: verbal, follows minor commends Subjective Date of service: 09/04/19 Principal diagnosis: transaminitis Interval history: Patient seen and examined Patient remained clinically unchanged CPK and LFT cont to trending down updated family, speech recommended pureed diet family wished to cont HD, CM notified for outpt setup Pending SNF placement Objective - Constitutional Vitals: Vital Signs - 12hr 09/03/19 09/04/19 22:26 04:40 Temperature 98.2 F Pulse Rate 76 72 Respiratory 16 Rate Blood Pressure 114/43 135/47 O2 Sat by Pulse 96 Oximetry - Labs CBC & Chem 7: 09/04/19 07:19 09/04/19 07:19 Labs: Abnormal lab results 09/03/19 09/03/19 09/04/19 Range/Units 11:31 17:07 07:19 WBC (4.5-11.0) K/mm3 RBC (3.65-5.03) M/mm3 Hgb (10.1-14.3) gm/dl Hct (30.3-42.9) % MCV (79-97) fl RDW (13.2-15.2) % Lymph % (Auto) (13.4-35.0) % Quay # (0.0-0.8) K/mm3 Seg Neutrophils % (40.0-70.0) % Seg Neutrophils # (1.8-7.7) K/mm3 Chloride 94.1 L (98-107) mmol/L BUN 94 H (7-17) mg/dL Creatinine 4.6 H (0.7-1.2) mg/dL Glucose 174 H (65-100) mg/dL POC Glucose 188 H 151 H (70-105) AST 89 H (5-40) units/L ALT 201 H (7-56) units/L Total Creatine Kinase 1411 H (30-135) units/L Total Protein 4.9 L (6.3-8.2) g/dL Albumin 1.9 L (3.9-5) g/dL 09/04/19 09/04/19 Range/Units 07:19 08:25 WBC 13.0 H (4.5-11.0) K/mm3 RBC 2.35 L (3.65-5.03) M/mm3 Hgb 7.6 L (10.1-14.3) gm/dl Hct 23.2 L (30.3-42.9) % MCV 98 H (79-97) fl RDW 16.3 H (13.2-15.2) % Lymph % (Auto) 9.3 L (13.4-35.0) % Quay # 0.9 H (0.0-0.8) K/mm3 Seg Neutrophils % 83.1 H (40.0-70.0) % Seg Neutrophils # 10.8 H (1.8-7.7) K/mm3 Chloride (98-107) mmol/L BUN (7-17) mg/dL Creatinine (0.7-1.2) mg/dL Glucose (65-100) mg/dL POC Glucose 175 H (70-105) AST (5-40) units/L ALT (7-56) units/L Total Creatine Kinase (30-135) units/L Total Protein (6.3-8.2) g/dL Albumin (3.9-5) g/dL
[2019-09-04] MEDS: EPOETIN ALFA 10,000 UNIT/1 ML INJ IV PRN (11:50)
[2019-09-04] MEDS: oxyCODONE /ACETAMINOPHEN 5-325MG TAB PO PRN ×2 (12:26→18:29)
--- NOTE | 2019-09-04 14:47 | Progress Note ---
Assessment and Plan - Patient Problems (1) Acute renal failure Current Visit: Yes Status: Acute Plan to address problem: Acute tubular necrosis secondary to rhabdomyolysis. no significant renal recovery seen. recommend temporary outpatient HD placement on TTS schedule, arrangement as per primar attending. pt is s/p permcath placement. (2) Acute renal failure due to rhabdomyolysis Current Visit: Yes Status: Acute Plan to address problem: Probably statin induced. Statin has been stopped. CPK is improving. (3) Hypertensive chronic kidney disease with stage 1 through stage 4 chronic kidney disease, or unspecified chronic kidney disease Current Visit: Yes Status: Acute Plan to address problem: monitor BP off meds (4) Type 2 diabetes mellitus with diabetic chronic kidney disease Current Visit: Yes Status: Chronic Plan to address problem: DM management per primary attending. (5) Metabolic acidosis Current Visit: Yes Status: Acute Plan to address problem: improved with HD (6) Encephalopathy acute Current Visit: Yes Status: Acute Plan to address problem: Probably toxic encephalopathy which is improving with dialysis. Continue to monitor mental status (7) Transaminasemia Current Visit: Yes Status: Acute Plan to address problem: Liver function improving. Follow-up liver function test off of statin Subjective Date of service: 09/04/19 Principal diagnosis: transaminitis Interval history: Pt awake, alert, in no acute respiratory distress. tolerating HD without acute issues Objective - Vital Signs Vital signs: Vital Signs - 12hr 09/04/19 09/04/19 09/04/19 04:40 09:40 09:50 Temperature 98.2 F 98.2 F Pulse Rate 72 72 71 Respiratory 16 16 Rate Blood Pressure 135/47 127/51 119/55 O2 Sat by Pulse 96 Oximetry 09/04/19 09/04/19 09/04/19 10:00 10:15 10:30 Temperature Pulse Rate 69 70 70 Respiratory Rate Blood Pressure 125/49 119/46 111/57 O2 Sat by Pulse Oximetry 09/04/19 09/04/19 09/04/19 10:45 11:00 11:15 Temperature Pulse Rate 70 71 69 Respiratory Rate Blood Pressure 98/52 121/52 123/46 O2 Sat by Pulse Oximetry 09/04/19 09/04/19 09/04/19 11:30 11:45 12:00 Temperature Pulse Rate 67 71 72 Respiratory Rate Blood Pressure 108/50 116/52 122/49 O2 Sat by Pulse Oximetry 09/04/19 09/04/19 09/04/19 12:15 12:30 12:45 Temperature Pulse Rate 72 71 71 Respiratory Rate Blood Pressure 127/48 110/52 118/43 O2 Sat by Pulse Oximetry 09/04/19 09/04/19 13:00 13:15 Temperature 98.2 F Pulse Rate 80 78 Respiratory 16 Rate Blood Pressure 105/52 111/53 O2 Sat by Pulse Oximetry - General Appearance General appearance: well-developed, well-nourished, appears stated age EENT: ATNC, PERRL, mucous membranes moist Neck: no JVD Respiratory: Present: Clear to Ascultation Cardiology: regular, S1S2 Gastrointestinal: normoactive bowel sounds Integumentary: no rash, other Neurologic: no focal deficit, alert and oriented x3, strength 5/5, CN 3-12 intact Psychiatric: mood/affect appropriate, cooperative - Lab 09/04/19 07:19 09/04/19 07:19 Most recent lab results Calcium 8.4 mg/dL (8.4-10.2) 09/04/19 07:19 Magnesium 2.00 mg/dL (1.7-2.3) 08/25/19 07:01 Urine Creatinine 102.1 mg/dL (0.1-20.0) H 08/21/19 20:00 Urine Sodium 44 mmol/L 08/21/19 10:06 Urine Total Protein 176 mg/dL (5-11.8) H 08/21/19 20:00 Medications & Allergies - Medications Allergies/Adverse Reactions: Allergies No Known Allergies Allergy (Verified 11/29/13 10:39) Home Medications: Home Medications Medication Instructions Recorded Confirmed Last Taken Type ALPRAZolam [Xanax TAB] 0.5 mg PO BID 03/21/13 08/20/19 01/29/14 History Amlodipine Bes/Olmesartan Med 2.5 mg PO QDAY 03/21/13 08/20/19 1 Day Ago History [Shekhar 10-20 mg] ~08/19/19 Glimepiride [Amaryl] 2 mg PO QAM 03/21/13 08/20/19 1 Day Ago History ~08/19/19 2 mg Losartan [Cozaar] 25 mg PO QDAY 03/21/13 08/20/19 1 Day Ago History ~08/19/19 25 mg Atorvastatin [Lipitor] 40 mg PO QHS 11/13/13 08/20/19 01/29/14 History Oxycodone HCl/Acetaminophen 1 each PO Q6HR PRN #20 tablet 11/29/13 08/20/19 Rx [Percocet 7.5/325 mg] Aspirin EC [Ecotrin] 325 mg PO QDAY #30 tablet 02/08/14 08/20/19 Unknown Rx Clopidogrel [Plavix] 75 mg PO QDAY #30 tablet 02/08/14 08/20/19 Unknown Rx Pantoprazole [Protonix TAB] 40 mg PO QDAY #30 tablet 02/08/14 08/20/19 1 Day Ago Rx ~08/19/19 40 mg carvediloL [Coreg] 3.125 mg PO BID #60 tablet 02/08/14 08/20/19 Unknown Rx levETIRAcetam [Keppra TAB] 1,500 mg PO BID 08/20/19 08/20/19 Unknown History Citalopram [celeXA] 40 mg PO QDAY 08/22/19 08/22/19 Unknown History Active Medications: Generic Name Dose Route Start Last Admin Trade Name Freq PRN Reason Stop Dose Admin Alprazolam 0.5 mg 08/20/19 10:00 09/03/19 22:26 Xanax PO 0.5 mg BID SHARON Administration Lipase/Protease/Amylase 1 each 08/23/19 14:[address] 10,500 Unit FEEDTUBE PRN PRN For Clogged Feeding Tube Aspirin 325 mg 08/20/19 10:00 09/03/19 12:10 Ecotrin PO 325 mg QDAY SHARON Administration Carvedilol 3.125 mg 08/20/19 22:00 09/03/19 22:26 Coreg PO 3.125 mg BID SHARON Administration Clopidogrel Bisulfate 75 mg 08/20/19 10:00 09/03/19 12:10 Plavix PO 75 mg QDAY SHARON Administration Epoetin Rahul 10,000 unit 08/25/19 09:32 09/04/19 11:50 Procrit IV 10,000 unit DESIRAE PRN Administration hemodialysis Famotidine 20 mg 09/01/19 10:00 09/03/19 12:11 Pepcid PO 20 mg DAILY SHARON Administration Heparin Sodium (Porcine) 5,000 unit 08/24/19 22:00 09/03/19 22:27 Heparin SUB-Q 5,000 unit Q12HR SHARON Administration Heparin Sodium (Porcine) 5,000 unit 08/25/19 09:32 Heparin IV DESIRAE PRN hemodialysis Hydralazine HCl 10 mg 08/20/19 09:00 08/26/19 20:15 Apresoline IV 10 mg Q4HR PRN Administration Hypertension Sodium Chloride 100 mls @ 999 mls/hr 09/02/19 09:30 Nacl 0.9% IV DESIRAE PRN Hypotension Insulin Human Lispro 0 unit 08/20/19 22:00 09/03/19 22:29 Humalog SUB-Q Not Given ACHS [facility] Protocol Insulin Human NPH 15 unit 08/31/19 17:00 09/03/19 19:07 Humulin N SUB-Q 15 unit BIDDIAB SHARON Administration Levetiracetam 1,500 mg 08/23/19 22:00 09/03/19 22:27 Keppra FEEDTUBE 1,500 mg BID SHARON Administration Nitroglycerin 0.4 mg 08/20/19 19:00 Nitrostat SL .Q5MIN PRN Chest Pain Oxycodone/Acetaminophen 1 tab 08/21/19 20:37 09/04/19 12:26 Percocet 5/325 PO 1 tab Q6H PRN Administration Pain, Moderate (4-6) Simple Syrup 15 ml 08/23/19 14:47 Simple Syrup FEEDTUBE PRN PRN Hypoglycemia Simple Syrup 30 ml 08/23/19 14:47 Simple Syrup FEEDTUBE PRN PRN Hypoglycemia Sodium Bicarbonate 325 mg 08/23/19 14:47 Sodium Bicarbonate FEEDTUBE PRN PRN For Clogged Feeding Tube
[2019-09-04] MEDS: CLOPIDOGREL 75 MG TAB PO SCH (17:09)
[2019-09-04] MEDS: levETIRAcetam 500 MG/5 ML ORAL LIQD FEEDTUBE SCH ×2 (17:09→21:04)
[2019-09-04] MEDS: ASPIRIN EC 325 MG TAB PO SCH (17:09)
[2019-09-04] MEDS: FAMOTIDINE 20 MG TAB PO SCH (17:09)
[2019-09-04] MEDS: ALPRAZolam 0.5 MG TAB PO SCH ×2 (17:11→21:04)
[2019-09-05] MEDS: oxyCODONE /ACETAMINOPHEN 5-325MG TAB PO PRN ×2 (03:06→14:37)
[2019-09-05 06:43] LABS: Calcium 8.2 mg/dL (8.4-10.2)
[2019-09-05] MEDS: INSULIN LISPRO 100 UNIT/ML SUB-Q SCH ×4 (07:30→21:48)
[2019-09-05] MEDS: INSULIN NPH, HUMAN 100 UNIT/1 ML SUB-Q SCH ×2 (08:00→17:58)
[2019-09-05] MEDS: carvediloL 3.125 MG TAB PO SCH ×2 (10:00→21:43)
[2019-09-05] MEDS: ALPRAZolam 0.5 MG TAB PO SCH ×2 (10:38→21:42)
[2019-09-05] MEDS: levETIRAcetam 500 MG/5 ML ORAL LIQD FEEDTUBE SCH ×2 (10:38→21:42)
[2019-09-05] MEDS: ASPIRIN EC 325 MG TAB PO SCH (10:39)
[2019-09-05] MEDS: FAMOTIDINE 20 MG TAB PO SCH (10:39)
[2019-09-05] MEDS: CLOPIDOGREL 75 MG TAB PO SCH (10:39)
[2019-09-05] MEDS: HEPARIN 5,000 UNIT/1 ML VIAL SUB-Q SCH ×2 (10:41→21:42)
--- NOTE | 2019-09-05 10:54 | Progress Note ---
Assessment and Plan - Patient Problems (1) Acute renal failure Current Visit: Yes Status: Acute Plan to address problem: Acute tubular necrosis secondary to rhabdomyolysis. no significant renal recovery seen. recommend temporary outpatient HD placement on TTS schedule, arrangement as per case management. pt is s/p permcath placement. (2) Acute renal failure due to rhabdomyolysis Current Visit: Yes Status: Acute Plan to address problem: Probably statin induced. Statin has been stopped. CPK is improving. (3) Hypertensive chronic kidney disease with stage 1 through stage 4 chronic kidney disease, or unspecified chronic kidney disease Current Visit: Yes Status: Acute Plan to address problem: monitor BP off meds (4) Type 2 diabetes mellitus with diabetic chronic kidney disease Current Visit: Yes Status: Chronic Plan to address problem: DM management per primary attending. (5) Metabolic acidosis Current Visit: Yes Status: Acute Plan to address problem: improved with HD (6) Encephalopathy acute Current Visit: Yes Status: Acute Plan to address problem: Probably toxic encephalopathy which is improving with dialysis. Continue to monitor mental status (7) Transaminasemia Current Visit: Yes Status: Acute Plan to address problem: Liver function improving. Follow-up liver function test off of statin Subjective Date of service: 09/05/19 Principal diagnosis: transaminitis Interval history: Pt awake, alert, in no acute respiratory distress. Objective - Vital Signs Vital signs: Vital Signs - 12hr 09/05/19 09/05/19 00:46 05:53 Temperature 97.7 F 98.9 F Pulse Rate 93 H 80 Respiratory 18 18 Rate Blood Pressure 106/29 99/30 O2 Sat by Pulse 98 98 Oximetry - General Appearance General appearance: well-developed, well-nourished, appears stated age EENT: ATNC, PERRL, mucous membranes moist Neck: no JVD Respiratory: Present: Clear to Ascultation Cardiology: regular, S1S2 Gastrointestinal: normoactive bowel sounds Integumentary: no rash, other (no edema) Neurologic: no focal deficit, alert and oriented x3, strength 5/5, CN 3-12 intact Psychiatric: mood/affect appropriate, cooperative - Lab 09/04/19 07:19 09/05/19 05:43 Most recent lab results Calcium 8.2 mg/dL (8.4-10.2) L 09/05/19 05:43 Magnesium 2.00 mg/dL (1.7-2.3) 08/25/19 07:01 Urine Creatinine 102.1 mg/dL (0.1-20.0) H 08/21/19 20:00 Urine Sodium 44 mmol/L 08/21/19 10:06 Urine Total Protein 176 mg/dL (5-11.8) H 08/21/19 20:00 Medications & Allergies - Medications Allergies/Adverse Reactions: Allergies No Known Allergies Allergy (Verified 11/29/13 10:39) Home Medications: Home Medications Medication Instructions Recorded Confirmed Last Taken Type ALPRAZolam [Xanax TAB] 0.5 mg PO BID 03/21/13 08/20/19 01/29/14 History Amlodipine Bes/Olmesartan Med 2.5 mg PO QDAY 03/21/13 08/20/19 1 Day Ago History [Shekhar 10-20 mg] ~08/19/19 Glimepiride [Amaryl] 2 mg PO QAM 03/21/13 08/20/19 1 Day Ago History ~08/19/19 2 mg Losartan [Cozaar] 25 mg PO QDAY 03/21/13 08/20/19 1 Day Ago History ~08/19/19 25 mg Atorvastatin [Lipitor] 40 mg PO QHS 11/13/13 08/20/19 01/29/14 History Oxycodone HCl/Acetaminophen 1 each PO Q6HR PRN #20 tablet 11/29/13 08/20/19 01/30/14 Rx [Percocet 7.5/325 mg] Aspirin EC [Ecotrin] 325 mg PO QDAY #30 tablet 02/08/14 08/20/19 Unknown Rx Clopidogrel [Plavix] 75 mg PO QDAY #30 tablet 02/08/14 08/20/19 Unknown Rx Pantoprazole [Protonix TAB] 40 mg PO QDAY #30 tablet 02/08/14 08/20/19 1 Day Ago Rx ~08/19/19 40 mg carvediloL [Coreg] 3.125 mg PO BID #60 tablet 02/08/14 08/20/19 Unknown Rx levETIRAcetam [Keppra TAB] 1,500 mg PO BID 08/20/19 08/20/19 Unknown History Citalopram [celeXA] 40 mg PO QDAY 08/22/19 08/22/19 Unknown History Active Medications: Generic Name Dose Route Start Last Admin Trade Name Freq PRN Reason Stop Dose Admin Alprazolam 0.5 mg 08/20/19 10:00 09/05/19 10:38 Xanax PO 0.5 mg BID SHARON Administration Lipase/Protease/Amylase 1 each 08/23/19 14:47 Pancreaze 10,500 Unit FEEDTUBE PRN PRN For Clogged Feeding Tube Aspirin 325 mg 08/20/19 10:00 09/05/19 10:39 Ecotrin PO 325 mg QDAY SHARON Administration Carvedilol 3.125 mg 08/20/19 22:00 09/04/19 21:05 Coreg PO 3.125 mg BID SHARON Administration Clopidogrel Bisulfate 75 mg 08/20/19 10:00 09/05/19 10:39 Plavix PO 75 mg QDAY SHARON Administration Epoetin Rahul 10,000 unit 08/25/19 09:32 09/04/19 11:50 Procrit IV 10,000 unit DESIRAE PRN Administration hemodialysis Famotidine 20 mg 09/01/19 10:00 09/05/19 10:39 Pepcid PO 20 mg DAILY SHARON Administration Heparin Sodium (Porcine) 5,000 unit 08/24/19 22:00 09/05/19 10:41 Heparin SUB-Q 5,000 unit Q12HR SHARON Administration Heparin Sodium (Porcine) 5,000 unit 08/25/19 09:32 Heparin IV DESIRAE PRN hemodialysis Hydralazine HCl 10 mg 08/20/19 09:00 08/26/19 20:15 Apresoline IV 10 mg Q4HR PRN Administration Hypertension Sodium Chloride 100 mls @ 999 mls/hr 09/02/19 09:30 Nacl 0.9% IV DESIRAE PRN Hypotension Insulin Human Lispro 0 unit 08/20/19 22:00 09/05/19 07:30 Humalog SUB-Q 3 unit ACHS SHARON Administration Protocol Insulin Human NPH 15 unit 08/31/19 17:00 09/05/19 08:00 Humulin N SUB-Q 15 unit BIDDIAB SHARON Administration Levetiracetam 1,500 mg 08/23/19 22:00 09/05/19 10:38 Keppra FEEDTUBE 1,500 mg BID SHARON Administration Nitroglycerin 0.4 mg 08/20/19 19:00 Nitrostat SL .Q5MIN PRN Chest Pain Oxycodone/Acetaminophen 1 tab 08/21/19 20:37 09/05/19 03:06 Percocet 5/325 PO 1 tab Q6H PRN Administration Pain, Moderate (4-6) Simple Syrup 15 ml 08/23/19 14:47 Simple Syrup FEEDTUBE PRN PRN Hypoglycemia Simple Syrup 30 ml 08/23/19 14:47 Simple Syrup FEEDTUBE PRN PRN Hypoglycemia Sodium Bicarbonate 325 mg 08/23/19 14:47 Sodium Bicarbonate FEEDTUBE PRN PRN For Clogged Feeding Tube
--- NOTE | 2019-09-05 14:22 | Progress Note ---
Assessment and Plan Assessment and plan: 84-year-old -[place] female patient with significant history of hypertension ,diabetes mellitus, coronary artery disease status post PCI ,CVA and seizure disorder Presented to the emergency room with complaints of generalized weakness, work-up is consistent with acute renal failure, acute liver failure, severe rhabdomyolysis due to statin use, non-ST elevation [place], severe metabolic encephalopathy, multiple specialists are following the patient. * During the course of hospitalization patient was started on hemodialysis with noted improvement in rhabdomyolysis and also mental status. She continues to require hemodialysis. * Statin was discontinued as this was felt to be the inciting factor * Initially there was a discussion for speech evaluation which was done with recommendation for pured diet unfortunately the patient has not been tolerating this and requiring surgical consult to consider PEG placement per the family. Family also made the patient a DNR at this time. * Patient has a history of CVA with residual weakness although was ambulatory prior to this hospitalization. * Once nutritional pathways achieved and outpatient dialysis achieved patient can be discharged Important active issues: 1. Worsening renal function; nephrology initiated hemodialysis - need outpt setup 2. Severe rhabdomyolysis; with renal and liver failure due to statin, improving 3. Acute liver failure/transaminitis - trending down 4. Non-ST elevation [place]; medical Mx 5. Acute encephalopathy, improved, placed on pureed diet 6. Poor p.o. intake: PEG placement recommended /Acute kidney injury; likely ATN Worsening renal function, nephrology following - on HD now need outpt HD setup, s/p permcath placement by vascular /Rhabdomyolysis; likely from statin CpK trended upto ~28,000, placed on vigorous IV hydration w/o sig improvement - now on HD Monitor renal function, cont to Hold statin, low volume HCO3 drip, nephrology following, CPK now continues to trend down /Transaminitis; unknown etiology - trending down with normal ele Hepatitis panel negative, no stone in abdominal ultrasound + biliary sludge, no cholecystitis, dilated common bile duct GI following, unable to do MRI due to ICD Management supportive per GI /Metabolic encephalopathy; multifactorial - improved Uremia, transaminitis, acidosis, advanced age with underlying dementia Patient is lethargic but alert, Dobb[place] in place For medications and tube feeding cont supportive care, s/p repeat CT head showed no acute CVA speech eval ordered - recommended pureed diet with nectar thick liquid /Metabolic acidosis: due acute kidney injury, mgt per neurology - placed on hCO3 drip, now also on HD /Severe hypokalemia; resolved Closely monitor electrolytes and replete as needed /Non-ST elevation [place]; In the setting of acute renal failure and acute rhabdo could be NSTEMI 2 However patient has risk factors, coronary artery disease - status post PCI in 2013 monitore with Serial cardiac enzymes, antiplatelets, beta-blockers echocardiogram, Cardiology evaluated - no cardiac work-up intended /Coronary artery disease status post PCI /ICD in place; monitor, cardiology evaluation if needed /Dyslipidemia; hold statin in view of rhabdo/transaminitis /Type 2 diabetes mellitus; Accu-Chek sliding scale coverage ADA diet, insulin as needed /History of seizure disorder; seizure precautions Continue Keppra /Anemia- Gradually trending down, Will monitor. /Hypertension; moderate control Continue current antihypertensives and PRN medications --DVT prophylaxis; heparin renal dose --DNR -- Discussed with son Patient remains very lethargic. Will discuss with family about possible hospice. Will check ammonia level and repeat CPK. He is planned for discharge to SNF if hospice is not an option. History Interval history: Patient seen and examined this morning very lethargic discussed with the nurse and the son at bedside patient has not been able to tolerate even the pured diet that was recommended by speech. She is very lethargic. Although mental status is improved from what was documented yesterday. She knows where she is she knows her name she knows what time it is. She has unfortunately not been able to ambulate. Per the son this all happened suddenly the day prior to admission. Hospitalist Physical - Physical exam Narrative exam: VITAL SIGNS: Reviewed. GENERAL: The patient appears chronically ill, lethargic, favors the left side. Vital signs as documented. HEAD: No signs of head trauma. EYES: Pupils are equal. Extraocular motions intact. EARS: Hearing grossly intact. MOUTH: Left facial droop NECK: No adenopathy, no JVD. CHEST: Chest with diminished breath sounds bilaterally. No wheezes, rales, or rhonchi. CARDIAC: Regular rate and rhythm. S1 and S2, without murmurs, gallops, or rubs. VASCULAR: No Edema. Peripheral pulses normal and equal in all extremities. ABDOMEN: Soft, non tender and non distended. No rebound or guarding, and no masses palpated. Bowel Sounds normal. MUSCULOSKELETAL: Extremities without clubbing, cyanosis or edema. NEUROLOGIC EXAM: Awake but lethargic and oriented x 3 No focal sensory or strength deficits. Speech labored. Follows some commands but very lethargic unable to move lower extremities . PSYCHIATRIC: Mood normal. SKIN: detial exam as documented in skin assessment - Constitutional Vitals: Temp Pulse Resp BP Pulse Ox 100.9 F H 71 22 114/36 100 09/05/19 11:07 09/05/19 11:07 09/05/19 11:07 09/05/19 11:07 09/05/19 11:07 General appearance: Present: mild distress, well-nourished, other (Lethargic) Results - Labs CBC & Chem 7: 09/04/19 07:19 09/05/19 05:43 Labs: Laboratory Last Values WBC 13.0 K/mm3 (4.5-11.0) H 09/04/19 07:19 RBC 2.35 M/mm3 (3.65-5.03) L 09/04/19 07:19 Hgb 7.6 gm/dl (10.1-14.3) L 09/04/19 07:19 Hct 23.2 % (30.3-42.9) L 09/04/19 07:19 MCV 98 fl (79-97) H 09/04/19 07:19 MCH 32 pg (28-32) 09/04/19 07:19 MCHC 33 % (30-34) 09/04/19 07:19 RDW 16.3 % (13.2-15.2) H 09/04/19 07:19 Plt Count 252 K/mm3 (140-440) 09/04/19 07:19 Lymph % (Auto) 9.3 % (13.4-35.0) L 09/04/19 07:19 Collier % (Auto) 7.0 % (0.0-7.3) 09/04/19 07:19 Eos % (Auto) 0.5 % (0.0-4.3) 09/04/19 07:19 Baso % (Auto) 0.1 % (0.0-1.8) 09/04/19 07:19 Lymph # 1.2 K/mm3 (1.2-5.4) 09/04/19 07:19 Collier # 0.9 K/mm3 (0.0-0.8) H 09/04/19 07:19 Eos # 0.1 K/mm3 (0.0-0.4) 09/04/19 07:19 Baso # 0.0 K/mm3 (0.0-0.1) 09/04/19 07:19 Seg Neutrophils % 83.1 % (40.0-70.0) H 09/04/19 07:19 Seg Neutrophils # 10.8 K/mm3 (1.8-7.7) H 09/04/19 07:19 PT 14.6 Sec. (12.2-14.9) 08/29/19 10:15 INR 1.12 (0.87-1.13) 08/29/19 10:15 APTT 59.6 Sec. (24.2-36.6) H 08/20/19 23:09 Heparin Anti-Xa Level 0.18 U.I./ml (0.3-0.7) L 08/22/19 15:01 Sodium 138 mmol/L (137-145) 09/05/19 05:43 Potassium 3.8 mmol/L (3.6-5.0) 09/05/19 05:43 Chloride 96.4 mmol/L (98-107) L 09/05/19 05:43 Carbon Dioxide 24 mmol/L (22-30) 09/05/19 05:43 Anion Gap 21 mmol/L 09/05/19 05:43 BUN 58 mg/dL (7-17) H 09/05/19 05:43 Creatinine 3.1 mg/dL (0.7-1.2) H 09/05/19 05:43 Estimated GFR 17 ml/min 09/05/19 05:43 BUN/Creatinine Ratio 19 % 09/05/19 05:43 Glucose 198 mg/dL (65-100) H 09/05/19 05:43 POC Glucose 222 (70-105) H 09/05/19 11:20 Lactic Acid 1.70 mmol/L (0.7-2.0) 08/20/19 23:09 Calcium 8.2 mg/dL (8.4-10.2) L 09/05/19 05:43 Magnesium 2.00 mg/dL (1.7-2.3) 08/25/19 07:01 Total Bilirubin 0.20 mg/dL (0.1-1.2) 09/05/19 05:43 Direct Bilirubin < 0.2 mg/dL (0-0.2) 08/31/19 09:47 Indirect Bilirubin 0.1 mg/dL 08/31/19 09:47 AST 59 units/L (5-40) H 09/05/19 05:43 ALT 159 units/L (7-56) H 09/05/19 05:43 Alkaline Phosphatase 75 units/L (35-129) 09/05/19 05:43 Ammonia 48.0 umol/L (25-60) 09/05/19 09:07 Total Creatine Kinase 850 units/L (30-135) H 09/05/19 10:12 CK-MB (CK-2) 73.0 ng/mL (0.0-4.0) H 08/21/19 05:35 CK-MB (CK-2) Rel Index 0.3 (0-4) 08/21/19 05:35 Troponin T 0.196 ng/mL (0.00-0.029) H* 08/21/19 05:35 Total Protein 5.0 g/dL (6.3-8.2) L 09/05/19 05:43 Albumin 2.0 g/dL (3.9-5) L 09/05/19 05:43 Albumin/Globulin Ratio 0.7 % 09/05/19 05:43 Triglycerides 125 mg/dL (2-149) 08/20/19 06:11 Cholesterol 89 mg/dL (50-199) 08/20/19 06:11 LDL Cholesterol Direct 45 mg/dL (50-130) L 08/20/19 06:11 HDL Cholesterol 25 mg/dL (40-59) L 08/20/19 06:11 Cholesterol/HDL Ratio 3.56 % 08/20/19 06:11 Urine Color Red (Yellow) 08/20/19 07:38 Urine Turbidity Cloudy (Clear) 08/20/19 07:38 Urine pH 5.0 (5.0-7.0) 08/20/19 07:38 Ur Specific [place] 1.013 (1.003-1.030) 08/20/19 07:38 Urine Protein 100 mg/dl mg/dL (Negative) 08/20/19 07:38 Urine Glucose (UA) Neg mg/dL (Negative) 08/20/19 07:38 Urine Ketones Neg mg/dL (Negative) 08/20/19 07:38 Urine Blood Lg (Negative) 08/20/19 07:38 Urine Nitrite Neg (Negative) 08/20/19 07:38 Urine Bilirubin Neg (Negative) 08/20/19 07:38 Urine Urobilinogen < 2.0 mg/dL (<2.0) 02 07:38 Ur Leukocyte Esterase Sm (Negative) 08/20/19 07:38 Urine WBC (Auto) 25.0 /HPF (0.0-6.0) H 08/20/19 07:38 Urine RBC (Auto) 4.0 /HPF (0.0-6.0) 08/20/19 07:38 U Epithel Cells (Auto) 3.0 /HPF (0-13.0) 08/20/19 07:38 Urine Bacteria (Auto) 1+ /HPF (Negative) 08/20/19 07:38 Amorphous Crystals Few 08/20/19 07:38 Urine Creatinine 102.1 mg/dL (0.1-20.0) H 08/21/19 20:00 Protein/Creatinin Ratio 1.72 08/21/19 20:00 Urine Sodium 44 mmol/L 08/21/19 10:06 Urine Potassium 23.15 mmol/L 08/21/19 10:06 Urine Chloride 22.8 mmolL (110-250) L 08/21/19 10:06 Urine Total Protein 176 mg/dL (5-11.8) H 08/21/19 20:00 Urine Opiates Screen Presumptive positive 08/21/19 20:00 Urine Methadone Screen Presumptive negative 08/21/19 20:00 Acetaminophen < 5.0 ug/mL (10.0-30.0) L 08/22/19 04:34 Ur Barbiturates Screen Presumptive negative 08/21/19 20:00 Ur Phencyclidine Scrn Presumptive negative 08/21/19 20:00 Ur Amphetamines Screen Presumptive negative 08/21/19 20:00 U Benzodiazepines Scrn Presumptive positive 08/21/19 20:00 Urine Cocaine Screen Presumptive negative 08/21/19 20:00 U Marijuana (THC) Screen Presumptive negative 08/21/19 20:00 Drugs of Abuse Note Disclamer 08/21/19 20:00 Proteinase 3 (PR3) Ab <1.0 AI (<1.0) 08/21/19 08:51 Myeloperoxidase Ab <1.0 AI (<1.0) 08/21/19 08:51 Complement C3 136 mg/dL () 08/21/19 08:51 Complement C4 46 mg/dL () 08/21/19 08:51 Hepatitis A IgM Ab Non-reactive (NonReactive) 08/20/19 23:09 Hep Bs Antigen Non-reactive (Negative) 08/26/19 05:49 Hep B Core IgM Ab Non-reactive (NonReactive) 08/20/19 23:09 Hepatitis C Antibody Non-reactive (NonReactive) 08/26/19 05:49 Active Medications - Current Medications Current Medications: Generic Name Dose Route Start Last Admin Trade Name Freq PRN Reason Stop Dose Admin Alprazolam 0.5 mg 08/20/19 10:00 09/05/19 10:38 Xanax PO 0.5 mg BID [facility] Administration Lipase/Protease/Amylase 1 each 08/23/19 14:[address] 10,500 Unit FEEDTUBE PRN PRN For Clogged Feeding Tube Aspirin 325 mg 08/20/19 10:00 09/05/19 10:39 Ecotrin PO 325 mg QDAY SHARON Administration Carvedilol 3.125 mg 08/20/19 22:00 09/05/19 10:00 Coreg PO Not Given BID [facility] Clopidogrel Bisulfate 75 mg 08/20/19 10:00 09/05/19 10:39 Plavix PO 75 mg QDAY [facility] Administration Epoetin Rahul 10,000 unit 08/25/19 09:32 09/04/19 11:50 Procrit IV 10,000 unit DESIRAE PRN Administration hemodialysis Famotidine 20 mg 09/01/19 10:00 09/05/19 10:39 Pepcid PO 20 mg DAILY [facility] Administration Heparin Sodium (Porcine) 5,000 unit 08/24/19 22:00 09/05/19 10:41 Heparin SUB-Q 5,000 unit Q12HR [facility] Administration Heparin Sodium (Porcine) 5,000 unit 08/25/19 09:32 Heparin IV DESIRAE PRN hemodialysis Hydralazine HCl 10 mg 08/20/19 09:00 08/26/19 20:15 Apresoline IV 10 mg Q4HR PRN Administration Hypertension Sodium Chloride 100 mls @ 999 mls/hr 09/02/19 09:30 Nacl 0.9% IV DESIRAE PRN Hypotension Insulin Human Lispro 0 unit 08/20/19 22:00 09/05/19 11:30 Humalog SUB-Q 3 unit ACHS SH[facility]ON Administration Protocol Insulin Human NPH 15 unit 08/31/19 17:00 09/05/19 08:00 Humulin N SUB-Q 15 unit BIDDIAB SHARON Administration Levetiracetam 1,500 mg 08/23/19 22:00 09/05/19 10:38 Keppra FEEDTUBE 1,500 mg BID [facility] Administration Nitroglycerin 0.4 mg 08/20/19 19:00 Nitrostat SL .Q5MIN PRN Chest Pain Oxycodone/Acetaminophen 1 tab 08/21/19 20:37 09/05/19 03:06 Percocet 5/325 PO 1 tab Q6H PRN Administration Pain, Moderate (4-6) Simple Syrup 15 ml 08/23/19 14:47 Simple Syrup FEEDTUBE PRN PRN Hypoglycemia Simple Syrup 30 ml 08/23/19 14:47 Simple Syrup FEEDTUBE PRN PRN Hypoglycemia Sodium Bicarbonate 325 mg 08/23/19 14:47 Sodium Bicarbonate FEEDTUBE PRN PRN For Clogged Feeding Tube Nutrition/Malnutrition Assess - Dietary Evaluation Nutrition/Malnutrition Findings: Nutrition Notes Start: 08/22/19 10:11 Freq: Status: Active Protocol: Document 09/03/19 10:56 LM (Rec: 09/03/19 10:59 LM [email or web address]) Nutrition Notes Initial or Follow up Reassessment Current Diagnosis Acute Kidney Injury,CKD(stage I-IV),Coronary Artery Disease, Diabetes Other Pertinent Diagnosis GERD, hypokalemia, anemia, Current Diet Glucerna 1.2 at 50ml/hr Labs/Tests BUN 74 Cr 3.5 BG 156 Pertinent Medications Humulin Humalog Height 5 ft 5 in Weight 84.5 kg [place] Body Weight (kg) 56.81 BMI 30.9 Weight Status Overweight Subjective/Other Information Glucerna running at 50 ml/hr at time of visit. Pt tolerating TF. Percent of energy/protein needs met: 93%/100% Burn Absent Trauma Absent GI Symptoms None Current % PO Negligible Minimum of two criteria No Reduced [employer] Strength Measurably Reduced (severe) #1 Nutrition Diagnosis Inadequate oral intake Diagnosis Progress(for reassessment Continues documentation) Is patient on ventilator? No Is Patient Ambulatory and/or Out of Bed No REE-([facility]-confined to bed) 1550.292 Calculation Used for Recommendations Kcal/kg Additional Notes protein needs: 61 - 77g (0.8 - 1 g/kgBW) (JULIANO w/ no dialysis) fluid needs: 1 ml/kcal Nutrition Intervention Change Diet Order: Continue TF Nutrition Support: Glucerna 1.2 at 50 ml/hr Flush 100 ml q4h Kcal 1,440 Protein (gm) 72 Fluid (mL) 966 Goal #1 Meet at least 80% of energy and protein needs via TF Anticipated Discharge Needs: TF Follow-Up By: 09/10/19 Additional Comments F/U for TF tolerance
[2019-09-06 06:02] LABS: Hematocrit 22.2 % (30.3-42.9); Hemoglobin 7.3 gm/dl (10.1-14.3); Mean Corpuscular HGB Conc 33 % (30-34); Mean Corpuscular Volume 100 fl (79-97); Platelet Count 278 K/mm3 (140-440); Red Blood Count 2.21 M/mm3 (3.65-5.03); Red Cell Distribution Width 19.7 % (13.2-15.2)
[2019-09-06 06:15] LABS: Albumin 2.2 g/dL (3.9-5); Calcium 8.5 mg/dL (8.4-10.2)
[2019-09-06] MEDS: INSULIN LISPRO 100 UNIT/ML SUB-Q SCH ×3 (08:43→18:17)
--- NOTE | 2019-09-06 11:55 | Progress Note ---
Assessment and Plan - Patient Problems (1) Acute renal failure Current Visit: Yes Status: Acute Plan to address problem: Likely ATN in the setting of rhabdomysolysis. With no renal recovery noted, patient was started on HD. Has Permcath placed, and tolerated HD at this time. Working to set up outpatient HD. (2) Hypertensive chronic kidney disease with stage 1 through stage 4 chronic kidney disease, or unspecified chronic kidney disease Current Visit: Yes Status: Acute Plan to address problem: Patient only on low dose of carvedilol 3.25 mg BID. Need to ensure that patient is not receiving medication prior to her dialysis treatment. Will monitor closely. (3) Type 2 diabetes mellitus with diabetic chronic kidney disease Current Visit: Yes Status: Chronic Plan to address problem: DM management per primary attending. (4) Metabolic acidosis Current Visit: Yes Status: Acute Plan to address problem: Stable at this time with HD. (5) Encephalopathy acute Current Visit: Yes Status: Acute Plan to address problem: Improvement with HD. Subjective Date of service: 09/06/19 Principal diagnosis: transaminitis Interval history: Seen at HD. Decrease in UF goals secondary to decreased blood pressure. Objective - Vital Signs Vital signs: Vital Signs - 12hr 09/06/19 09/06/19 09/06/19 06:12 09:55 10:15 Temperature 99.7 F H 100.4 F H Pulse Rate 72 70 81 Respiratory 17 18 Rate Blood Pressure 123/42 116/49 73/43 O2 Sat by Pulse 96 Oximetry 09/06/19 09/06/19 09/06/19 10:30 10:45 11:00 Temperature Pulse Rate 71 71 60 Respiratory Rate Blood Pressure 104/47 114/47 107/46 O2 Sat by Pulse Oximetry 09/06/19 11:15 Temperature Pulse Rate 78 Respiratory Rate Blood Pressure 99/38 O2 Sat by Pulse Oximetry - General Appearance General appearance: appears stated age, chronically ill EENT: ATNC, PERRL Neck: no JVD Respiratory: Present: Clear to Ascultation Cardiology: regular, S1S2 Gastrointestinal: normal Integumentary: warm and dry Musculoskeletal: deferred - Lab 09/06/19 05:28 09/06/19 05:28 Most recent lab results Calcium 8.5 mg/dL (8.4-10.2) 09/06/19 05:28 Magnesium 2.00 mg/dL (1.7-2.3) 08/25/19 07:01 Urine Creatinine 102.1 mg/dL (0.1-20.0) H 08/21/19 20:00 Urine Sodium 44 mmol/L 08/21/19 10:06 Urine Total Protein 176 mg/dL (5-11.8) H 08/21/19 20:00 Medications & Allergies - Medications Allergies/Adverse Reactions: Allergies No Known Allergies Allergy (Verified 11/29/13 10:39) Home Medications: Home Medications Medication Instructions Recorded Confirmed Last Taken Type ALPRAZolam [Xanax TAB] 0.5 mg PO BID 03/21/13 08/20/19 01/29/14 History Amlodipine Bes/Olmesartan Med 2.5 mg PO QDAY 03/21/13 08/20/19 1 Day Ago History [Shekhar 10-20 mg] ~08/19/19 Glimepiride [Amaryl] 2 mg PO QAM 03/21/13 08/20/19 1 Day Ago History ~08/19/19 2 mg Losartan [Cozaar] 25 mg PO QDAY 03/21/13 08/20/19 1 Day Ago History ~08/19/19 25 mg Atorvastatin [Lipitor] 40 mg PO QHS 11/13/13 08/20/19 01/29/14 History Oxycodone HCl/Acetaminophen 1 each PO Q6HR PRN #20 tablet 11/29/13 08/20/19 01/30/14 Rx [Percocet 7.5/325 mg] Aspirin EC [Ecotrin] 325 mg PO QDAY #30 tablet 02/08/14 08/20/19 Unknown Rx Clopidogrel [Plavix] 75 mg PO QDAY #30 tablet 02/08/14 08/20/19 Unknown Rx Pantoprazole [Protonix TAB] 40 mg PO QDAY #30 tablet 02/08/14 08/20/19 1 Day Ago Rx ~08/19/19 40 mg carvediloL [Coreg] 3.125 mg PO BID #60 tablet 02/08/14 08/20/19 Unknown Rx levETIRAcetam [Keppra TAB] 1,500 mg PO BID 08/20/19 08/20/19 Unknown History Citalopram [celeXA] 40 mg PO QDAY 08/22/19 08/22/19 Unknown History Active Medications: Generic Name Dose Route Start Last Admin Trade Name Freq PRN Reason Stop Dose Admin Alprazolam 0.5 mg 08/20/19 10:00 09/05/19 21:42 Xanax PO 0.5 mg BID [facility] Administration Lipase/Protease/Amylase 1 each 08/23/19 14:47 Pancreaze 10,500 Unit FEEDTUBE PRN PRN For Clogged Feeding Tube Aspirin 325 mg 08/20/19 10:00 09/05/19 10:39 Ecotrin PO 325 mg QDAY SH[facility]ON Administration Carvedilol 3.125 mg 08/20/19 22:00 09/05/19 21:43 Coreg PO 3.125 mg BID [facility] Administration Clopidogrel Bisulfate 75 mg 08/20/19 10:00 09/05/19 10:39 Plavix PO 75 mg QDAY SHARON Administration Epoetin Rahul 10,000 unit 08/25/19 09:32 09/04/19 11:50 Procrit IV 10,000 unit DESIRAE PRN Administration hemodialysis Famotidine 20 mg 09/01/19 10:00 09/05/19 10:39 Pepcid PO 20 mg DAILY [facility] Administration Heparin Sodium (Porcine) 5,000 unit 08/24/19 22:00 09/05/19 21:42 Heparin SUB-Q 5,000 unit Q12HR [facility]ON Administration Heparin Sodium (Porcine) 5,000 unit 08/25/19 09:32 Heparin IV DESIRAE PRN hemodialysis Hydralazine HCl 10 mg 08/20/19 09:00 08/26/19 20:15 Apresoline IV 10 mg Q4HR PRN Administration Hypertension Sodium Chloride 100 mls @ 999 mls/hr 09/02/19 09:30 Nacl 0.9% IV DESIRAE PRN Hypotension Insulin Human Lispro 0 unit 09/06/19 12:00 Humalog SUB-Q Q6HR [facility] Protocol Insulin Human NPH 15 unit 08/31/19 17:00 09/05/19 17:58 Humulin N SUB-Q 15 unit BIDDIAB [facility] Administration Levetiracetam 1,500 mg 08/23/19 22:00 09/05/19 21:42 Keppra FEEDTUBE 1,500 mg BID [facility] Administration Nitroglycerin 0.4 mg 08/20/19 19:00 Nitrostat SL .Q5MIN PRN Chest Pain Oxycodone/Acetaminophen 1 tab 08/21/19 20:37 09/05/19 14:37 Percocet 5/325 PO 1 tab Q6H PRN Administration Pain, Moderate (4-6) Simple Syrup 15 ml 08/23/19 14:47 Simple Syrup FEEDTUBE PRN PRN Hypoglycemia Simple Syrup 30 ml 08/23/19 14:47 Simple Syrup FEEDTUBE PRN PRN Hypoglycemia Sodium Bicarbonate 325 mg 08/23/19 14:47 Sodium Bicarbonate FEEDTUBE PRN PRN For Clogged Feeding Tube
[2019-09-06] MEDS ORDERED: SODIUM CHLORIDE*PRIMING MACHINE ONLY FOR DIALYSIS MC ONE (12:57)
[2019-09-06] MEDS: EPOETIN ALFA 10,000 UNIT/1 ML INJ IV PRN (13:31)
[2019-09-06] MEDS: FAMOTIDINE 20 MG TAB PO SCH (14:58)
[2019-09-06] MEDS: carvediloL 3.125 MG TAB PO SCH ×2 (14:58→22:02)
[2019-09-06] MEDS: ASPIRIN EC 325 MG TAB PO SCH (14:58)
[2019-09-06] MEDS: oxyCODONE /ACETAMINOPHEN 5-325MG TAB PO PRN ×2 (14:58→22:03)
[2019-09-06] MEDS: CLOPIDOGREL 75 MG TAB PO SCH (14:58)
[2019-09-06] MEDS: ALPRAZolam 0.5 MG TAB PO SCH ×2 (14:58→22:02)
[2019-09-06] MEDS: HEPARIN 5,000 UNIT/1 ML VIAL SUB-Q SCH ×2 (14:59→22:02)
[2019-09-06] MEDS: INSULIN NPH, HUMAN 100 UNIT/1 ML SUB-Q SCH ×2 (14:59→16:55)
[2019-09-06] MEDS: levETIRAcetam 500 MG/5 ML ORAL LIQD FEEDTUBE SCH ×2 (14:59→22:02)
--- NOTE | 2019-09-06 17:20 | Progress Note ---
Assessment and Plan Assessment and plan: 84-year-old -Maldivian female patient with significant history of hypertension ,diabetes mellitus, coronary artery disease status post PCI ,CVA and seizure disorder Presented to the emergency room with complaints of generalized weakness, work-up is consistent with acute renal failure, acute liver failure, severe rhabdomyolysis due to statin use, non-ST elevation UT, severe metabolic encephalopathy, multiple specialists are following the patient. * During the course of hospitalization patient was started on hemodialysis with noted improvement in rhabdomyolysis and also mental status. She continues to require hemodialysis. * Statin was discontinued as this was felt to be the inciting factor * Initially there was a discussion for speech evaluation which was done with recommendation for pured diet unfortunately the patient has not been tolerating this and requiring surgical consult to consider PEG placement per the family. Family also made the patient a DNR at this time. * Patient has a history of CVA with residual weakness although was ambulatory prior to this hospitalization. * Once nutritional pathways achieved and outpatient dialysis achieved patient can be discharged Important active issues: 1. Worsening renal function; nephrology initiated hemodialysis - need outpt setup 2. Severe rhabdomyolysis; with renal and liver failure due to statin, improving 3. Acute liver failure/transaminitis - trending down 4. Non-ST elevation UT; medical Mx 5. Acute encephalopathy, improved, placed on pureed diet 6. Poor p.o. intake: PEG placement recommended : Currently unable to tolerate PO. continue HD, check chxr considering low grade temp although resolved now. GI consulted for Tube feed placement, family again states that they want PEG Tube. Aspiration precauitions, keep HOB elevated. /Acute kidney injury; likely ATN Worsening renal function, nephrology following - on HD now need outpt HD setup, s/p permcath placement by vascular /Rhabdomyolysis; likely from statin CpK trended upto ~28,000, placed on vigorous IV hydration w/o sig improvement - now on HD Monitor renal function, cont to Hold statin, low volume HCO3 drip, nephrology following, CPK now continues to trend down /Transaminitis; unknown etiology - trending down with normal ele Hepatitis panel negative, no stone in abdominal ultrasound + biliary sludge, no cholecystitis, dilated common bile duct GI following, unable to do MRI due to ICD Management supportive per GI /Metabolic encephalopathy; multifactorial - improved Uremia, transaminitis, acidosis, advanced age with underlying dementia Patient is lethargic but alert, Dobbhoff in place For medications and tube feeding cont supportive care, s/p repeat CT head showed no acute CVA speech eval ordered - recommended pureed diet with nectar thick liquid /Metabolic acidosis: due acute kidney injury, mgt per neurology - placed on hCO3 drip, now also on HD /Severe hypokalemia; resolved Closely monitor electrolytes and replete as needed /Non-ST elevation UT; In the setting of acute renal failure and acute rhabdo could be NSTEMI 2 However patient has risk factors, coronary artery disease - status post PCI in 2013 monitore with Serial cardiac enzymes, antiplatelets, beta-blockers echocardiogram, Cardiology evaluated - no cardiac work-up intended /Coronary artery disease status post PCI /ICD in place; monitor, cardiology evaluation if needed /Dyslipidemia; hold statin in view of rhabdo/transaminitis /Type 2 diabetes mellitus; Accu-Chek sliding scale coverage ADA diet, insulin as needed /History of seizure disorder; seizure precautions Continue Keppra /Anemia- Gradually trending down, Will monitor. /Hypertension; moderate control Continue current antihypertensives and PRN medications --DVT prophylaxis; heparin renal dose --DNR -- Discussed with son Patient remains very lethargic. Will discuss with family about possible hospice. Will check ammonia level and repeat CPK. He is planned for discharge to SNF if hospice is not an option. History Interval history: Patient seen and examined this morning having dialysis. Remains lethargic Hospitalist Physical - Physical exam Narrative exam: VITAL SIGNS: Reviewed. GENERAL: The patient appears chronically ill, lethargic, favors the left side. Vital signs as documented. HEAD: No signs of head trauma. EYES: Pupils are equal. Extraocular motions intact. EARS: Hearing grossly intact. MOUTH: Left facial droop NECK: No adenopathy, no JVD. CHEST: Chest with diminished breath sounds bilaterally. No wheezes, rales, or rhonchi. CARDIAC: Regular rate and rhythm. S1 and S2, without murmurs, gallops, or rubs . VASCULAR: No Edema. Peripheral pulses normal and equal in all extremities. ABDOMEN: Soft, non tender and non distended. No rebound or guarding, and no masses palpated. Bowel Sounds normal. MUSCULOSKELETAL: Extremities without clubbing, cyanosis or edema. NEUROLOGIC EXAM: Awake but lethargic and oriented x 3 No focal sensory or strength deficits. Speech labored. Follows some commands but very lethargic unable to move lower extremities . PSYCHIATRIC: Mood unable to access SKIN: detail exam as documented in skin assessment - Constitutional Vitals: Temp Pulse Resp BP Pulse Ox 97.9 F 82 14 124/46 96 09/06/19 14:28 09/06/19 14:28 09/06/19 14:28 09/06/19 14:28 09/06/19 14:28 General appearance: Present: mild distress, well-nourished, other (Lethargic) Results - Labs CBC & Chem 7: 09/06/19 05:28 09/06/19 05:28 Labs: Laboratory Last Values WBC 14.4 K/mm3 (4.5-11.0) H 09/06/19 05:28 RBC 2.21 M/mm3 (3.65-5.03) L 09/06/19 05:28 Hgb 7.3 gm/dl (10.1-14.3) L 09/06/19 05:28 Hct 22.2 % (30.3-42.9) L 09/06/19 05:28 MCV 100 fl (79-97) H 09/06/19 05:28 MCH 33 pg (28-32) H 09/06/19 05:28 MCHC 33 % (30-34) 09/06/19 05:28 RDW 19.7 % (13.2-15.2) H 09/06/19 05:28 Plt Count 278 K/mm3 (140-440) 09/06/19 05:28 Lymph % (Auto) 9.3 % (13.4-35.0) L 09/04/19 07:19 Fisher % (Auto) 7.0 % (0.0-7.3) 09/04/19 07:19 Eos % (Auto) 0.5 % (0.0-4.3) 09/04/19 07:19 Baso % (Auto) 0.1 % (0.0-1.8) 09/04/19 07:19 Lymph # 1.2 K/mm3 (1.2-5.4) 09/04/19 07:19 Fisher # 0.9 K/mm3 (0.0-0.8) H 09/04/19 07:19 Eos # 0.1 K/mm3 (0.0-0.4) 09/04/19 07:19 Baso # 0.0 K/mm3 (0.0-0.1) 09/04/19 07:19 Seg Neutrophils % 83.1 % (40.0-70.0) H 09/04/19 07:19 Seg Neutrophils # 10.8 K/mm3 (1.8-7.7) H 09/04/19 07:19 PT 14.6 Sec. (12.2-14.9) 08/29/19 10:15 INR 1.12 (0.87-1.13) 08/29/19 10:15 APTT 59.6 Sec. (24.2-36.6) H 08/20/19 23:09 Heparin Anti-Xa Level 0.18 U.I./ml (0.3-0.7) L 08/22/19 15:01 Sodium 140 mmol/L (137-145) 09/06/19 05:28 Potassium 3.9 mmol/L (3.6-5.0) 09/06/19 05:28 Chloride 96.3 mmol/L (98-107) L 09/06/19 05:28 Carbon Dioxide 27 mmol/L (22-30) 09/06/19 05:28 Anion Gap 21 mmol/L 09/06/19 05:28 BUN 75 mg/dL (7-17) H 09/06/19 05:28 Creatinine 4.3 mg/dL (0.7-1.2) H 09/06/19 05:28 Estimated GFR 12 ml/min 09/06/19 05:28 BUN/Creatinine Ratio 17 % 09/06/19 05:28 Glucose 148 mg/dL (65-100) H 09/06/19 05:28 POC Glucose 247 (70-105) H 09/06/19 14:41 Lactic Acid 1.70 mmol/L (0.7-2.0) 08/20/19 23:09 Calcium 8.5 mg/dL (8.4-10.2) 09/06/19 05:28 Magnesium 2.00 mg/dL (1.7-2.3) 08/25/19 07:01 Total Bilirubin 0.20 mg/dL (0.1-1.2) 09/06/19 05:28 Direct Bilirubin < 0.2 mg/dL (0-0.2) 08/31/19 09:47 Indirect Bilirubin 0.1 mg/dL 08/31/19 09:47 AST 54 units/L (5-40) H 09/06/19 05:28 ALT 131 units/L (7-56) H 09/06/19 05:28 Alkaline Phosphatase 76 units/L (35-129) 09/06/19 05:28 Ammonia 48.0 umol/L (25-60) 09/05/19 09:07 Total Creatine Kinase 599 units/L (30-135) H 09/06/19 Unknown CK-MB (CK-2) 73.0 ng/mL (0.0-4.0) H 08/21/19 05:35 CK-MB (CK-2) Rel Index 0.3 (0-4) 08/21/19 05:35 Troponin T 0.196 ng/mL (0.00-0.029) H* 08/21/19 05:35 Total Protein 5.3 g/dL (6.3-8.2) L 09/06/19 05:28 Albumin 2.2 g/dL (3.9-5) L 09/06/19 05:28 Albumin/Globulin Ratio 0.7 % 09/06/19 05:28 Triglycerides 125 mg/dL (2-149) 08/20/19 06:11 Cholesterol 89 mg/dL (50-199) 08/20/19 06:11 LDL Cholesterol Direct 45 mg/dL (50-130) L 08/20/19 06:11 HDL Cholesterol 25 mg/dL (40-59) L 08/20/19 06:11 Cholesterol/HDL Ratio 3.56 % 08/20/19 06:11 Urine Color Red (Yellow) 08/20/19 07:38 Urine Turbidity Cloudy (Clear) 08/20/19 07:38 Urine pH 5.0 (5.0-7.0) 08/20/19 07:38 Ur Specific [place] 1.013 (1.003-1.030) 08/20/19 07:38 Urine Protein 100 mg/dl mg/dL (Negative) 08/20/19 07:38 Urine Glucose (UA) Neg mg/dL (Negative) 08/20/19 07:38 Urine Ketones Neg mg/dL (Negative) 08/20/19 07:38 Urine Blood Lg (Negative) 08/20/19 07:38 Urine Nitrite Neg (Negative) 08/20/19 07:38 Urine Bilirubin Neg (Negative) 08/20/19 07:38 Urine Urobilinogen < 2.0 mg/dL (<2.0) 02 07:38 Ur Leukocyte Esterase Sm (Negative) 08/20/19 07:38 Urine WBC (Auto) 25.0 /HPF (0.0-6.0) H 08/20/19 07:38 Urine RBC (Auto) 4.0 /HPF (0.0-6.0) 08/20/19 07:38 U Epithel Cells (Auto) 3.0 /HPF (0-13.0) 08/20/19 07:38 Urine Bacteria (Auto) 1+ /HPF (Negative) 08/20/19 07:38 Amorphous Crystals Few 08/20/19 07:38 Urine Creatinine 102.1 mg/dL (0.1-20.0) H 08/21/19 20:00 Protein/Creatinin Ratio 1.72 08/21/19 20:00 Urine Sodium 44 mmol/L 08/21/19 10:06 Urine Potassium 23.15 mmol/L 08/21/19 10:06 Urine Chloride 22.8 mmolL (110-250) L 08/21/19 10:06 Urine Total Protein 176 mg/dL (5-11.8) H 08/21/19 20:00 Urine Opiates Screen Presumptive positive 08/21/19 20:00 Urine Methadone Screen Presumptive negative 08/21/19 20:00 Acetaminophen < 5.0 ug/mL (10.0-30.0) L 08/22/19 04:34 Ur Barbiturates Screen Presumptive negative 08/21/19 20:00 Ur Phencyclidine Scrn Presumptive negative 08/21/19 20:00 Ur Amphetamines Screen Presumptive negative 08/21/19 20:00 U Benzodiazepines Scrn Presumptive positive 08/21/19 20:00 Urine Cocaine Screen Presumptive negative 08/21/19 20:00 U Marijuana (THC) Screen Presumptive negative 08/21/19 20:00 Drugs of Abuse Note Disclamer 08/21/19 20:00 Proteinase 3 (PR3) Ab <1.0 AI (<1.0) 08/21/19 08:51 Myeloperoxidase Ab <1.0 AI (<1.0) 08/21/19 08:51 Complement C3 136 mg/dL () 08/21/19 08:51 Complement C4 46 mg/dL () 08/21/19 08:51 Hepatitis A IgM Ab Non-reactive (NonReactive) 08/20/19 23:09 Hep Bs Antigen Non-reactive (Negative) 08/26/19 05:49 Hep B Core IgM Ab Non-reactive (NonReactive) 08/20/19 23:09 Hepatitis C Antibody Non-reactive (NonReactive) 08/26/19 05:49 Active Medications - Current Medications Current Medications: Generic Name Dose Route Start Last Admin Trade Name Freq PRN Reason Stop Dose Admin Alprazolam 0.5 mg 08/20/19 10:00 09/06/19 14:58 Xanax PO 0.5 mg BID SHARON Administration Lipase/Protease/Amylase 1 each 08/23/19 14:[address] 10,500 Unit FEEDTUBE PRN PRN For Clogged Feeding Tube Aspirin 325 mg 08/20/19 10:00 09/06/19 14:58 Ecotrin PO 325 mg QDAY SHARON Administration Carvedilol 3.125 mg 08/20/19 22:00 09/06/19 14:58 Coreg PO 3.125 mg BID SHARON Administration Clopidogrel Bisulfate 75 mg 08/20/19 10:00 09/06/19 14:58 Plavix PO 75 mg QDAY SHARON Administration Epoetin Rahul 10,000 unit 08/25/19 09:32 09/06/19 13:31 Procrit IV 10,000 unit DESIRAE PRN Administration hemodialysis Famotidine 20 mg 09/01/19 10:00 09/06/19 14:58 Pepcid PO 20 mg DAILY [facility] Administration Heparin Sodium (Porcine) 5,000 unit 08/24/19 22:00 09/06/19 14:59 Heparin SUB-Q Not Given Q12HR [facility] Heparin Sodium (Porcine) 5,000 unit 08/25/19 09:32 09/06/19 13:31 Heparin IV 5,000 unit DESIRAE PRN Administration hemodialysis Hydralazine HCl 10 mg 08/20/19 09:00 08/26/19 20:15 Apresoline IV 10 mg Q4HR PRN Administration Hypertension Sodium Chloride 100 mls @ 999 mls/hr 09/02/19 09:30 Nacl 0.9% IV DESIRAE PRN Hypotension Insulin Human Lispro 0 unit 09/06/19 12:00 09/06/19 12:00 Humalog SUB-Q Not Given Q6HR [facility] Protocol Insulin Human NPH 15 unit 08/31/19 17:00 09/06/19 16:55 Humulin N SUB-Q 15 unit BIDDIAB SHARON Administration Levetiracetam 1,500 mg 08/23/19 22:00 09/06/19 14:59 Keppra FEEDTUBE 1,500 mg BID SHARON Administration Nitroglycerin 0.4 mg 08/20/19 19:00 Nitrostat SL .Q5MIN PRN Chest Pain Oxycodone/Acetaminophen 1 tab 08/21/19 20:37 09/06/19 14:58 Percocet 5/325 PO 1 tab Q6H PRN Administration Pain, Moderate (4-6) Simple Syrup 15 ml 08/23/19 14:47 Simple Syrup FEEDTUBE PRN PRN Hypoglycemia Simple Syrup 30 ml 08/23/19 14:47 Simple Syrup FEEDTUBE PRN PRN Hypoglycemia Sodium Bicarbonate 325 mg 08/23/19 14:47 Sodium Bicarbonate FEEDTUBE PRN PRN For Clogged Feeding Tube Nutrition/Malnutrition Assess - Dietary Evaluation Nutrition/Malnutrition Findings: Nutrition Notes Start: 08/22/19 10:11 Freq: Status: Active Protocol: Document 09/03/19 10:56 LM (Rec: 09/03/19 10:59 LM [email or web address]) Nutrition Notes Initial or Follow up Reassessment Current Diagnosis Acute Kidney Injury,CKD(stage I-IV),Coronary Artery Disease, Diabetes Other Pertinent Diagnosis GERD, hypokalemia, anemia, Current Diet Glucerna 1.2 at 50ml/hr Labs/Tests BUN 74 Cr 3.5 BG 156 Pertinent Medications Humulin Humalog Height 5 ft 5 in Weight 84.5 kg Armstrong Body Weight (kg) 56.81 BMI 30.9 Weight Status Overweight Subjective/Other Information Glucerna running at 50 ml/hr at time of visit. Pt tolerating TF. 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 No Is Patient Ambulatory and/or Out of Bed No REE-([facility]-confined to bed) 4184.292 Calculation Used for Recommendations Kcal/kg Additional Notes protein needs: 61 - 77g (0.8 - 1 g/kgBW) (JULIANO w/ no dialysis) fluid needs: 1 ml/kcal Nutrition Intervention Change Diet Order: Continue TF Nutrition Support: Glucerna 1.2 at 50 ml/hr Flush 100 ml q4h Kcal 1,440 Protein (gm) 72 Fluid (mL) 966 Goal #1 Meet at least 80% of energy and protein needs via TF Anticipated Discharge Needs: TF Follow-Up By: 09/10/19 Additional Comments F/U for TF tolerance
--- NOTE | 2019-09-06 18:07 | XRay Report ---
CHEST 1 VIEW, 09/06/2019 5:34 PM CLINICAL INFORMATION/INDICATION: Shortness of breath. Aspiration. COMPARISON: Chest radiograph, 08/23/2019 FINDINGS: SUPPORT DEVICES: There has been interval placement of a dual-lumen central line with distal tip injec ting the expected position of the mid SVC. A weighted feeding tube has also been placed with tip over lying the expected position of the proximal duodenum. HEART: Cardiac and mediastinal contours are unchanged. LUNGS/PLEURA: Low lung volumes persist without evidence of large pleural effusion or pneumothorax. ADDITIONAL FINDINGS: No additional acute findings. IMPRESSION: 1. Stable appearance of the chest. 2. Interval placement of right-sided catheter and feeding tube. Signer Name: Heavenly Marie MD Signed: 09/06/2019 6:02 PM Workstation Name: [id number]
[2019-09-07] MEDS: INSULIN LISPRO 100 UNIT/ML SUB-Q SCH ×4 (00:10→17:38)
[2019-09-07 04:48] LABS: Hematocrit 20.9 % (30.3-42.9); Hemoglobin 6.7 gm/dl (10.1-14.3); Mean Corpuscular HGB Conc 32 % (30-34); Mean Corpuscular Volume 102 fl (79-97); Platelet Count 241 K/mm3 (140-440); Red Blood Count 2.06 M/mm3 (3.65-5.03)
[2019-09-07 04:51] LABS: Red Cell Distribution Width 20.3 % (13.2-15.2)
[2019-09-07 05:01] LABS: Albumin 2.3 g/dL (3.9-5); Calcium 8.4 mg/dL (8.4-10.2)
[2019-09-07] MEDS: INSULIN NPH, HUMAN 100 UNIT/1 ML SUB-Q SCH ×2 (08:00→17:38)
[2019-09-07] MEDS ORDERED: SODIUM CHLORIDE 0.9% 500 ML 500 ML IV ONE (08:08)
--- NOTE | 2019-09-07 08:09 | Progress Note ---
Assessment and Plan - Patient Problems (1) Acute renal failure Current Visit: Yes Status: Acute Plan to address problem: Likely ATN in the setting of rhabdomysolysis. With no renal recovery noted, patient was started on HD. Has Permcath placed, and tolerated HD at this time. Working to set up outpatient HD. No signs of renal recovery at present time. (2) Hypertensive chronic kidney disease with stage 1 through stage 4 chronic k idney disease, or unspecified chronic kidney disease Current Visit: Yes Status: Acute Plan to address problem: Patient only on low dose of carvedilol 3.25 mg BID. Need to ensure that patient is not receiving medication prior to her dialysis treatment. Will monitor closely. (3) Type 2 diabetes mellitus with diabetic chronic kidney disease Current Visit: Yes Status: Chronic Plan to address problem: DM management per primary attending. (4) Metabolic acidosis Current Visit: Yes Status: Acute Plan to address problem: Stable at this time with HD. (5) Encephalopathy acute Current Visit: Yes Status: Acute Plan to address problem: Improvement with HD. (6) Anemia Current Visit: Yes Status: Acute Plan to address problem: Showing gradual worsening, without any signs of active GI bleeding. Type and screen and will transfuse 1 unit PRBC. Receiving ARCENIO with HD Subjective Date of service: 09/07/19 Principal diagnosis: transaminitis Interval history: * NG tube in place, on Glucerna TF. Tolerated HD well yesterday. Objective - Vital Signs Vital signs: Vital Signs - 12hr 09/06/19 09/06/19 09/06/19 20:32 21:23 22:03 Temperature 101.0 F H Pulse Rate Pulse Rate [ 75 Apical] Respiratory 20 20 22 Rate Blood Pressure 125/45 O2 Sat by Pulse 95 Oximetry 09/07/19 09/07/19 00:11 05:17 Temperature 99.8 F H 98.0 F Pulse Rate 77 Pulse Rate [ Apical] Respiratory 20 Rate Blood Pressure 121/37 O2 Sat by Pulse 97 Oximetry - General Appearance General appearance: chronically ill, frail EENT: ATNC, PERRL Neck: no JVD Respiratory: Present: Clear to Ascultation Cardiology: regular, S1S2 Gastrointestinal: normal Integumentary: no rash Musculoskeletal: deferred - Lab 09/07/19 04:26 09/07/19 04:26 Most recent lab results Calcium 8.4 mg/dL (8.4-10.2) 09/07/19 04:26 Magnesium 2.00 mg/dL (1.7-2.3) 08/25/19 07:01 Urine Creatinine 102.1 mg/dL (0.1-20.0) H 08/21/19 20:00 Urine Sodium 44 mmol/L 08/21/19 10:06 Urine Total Protein 176 mg/dL (5-11.8) H 08/21/19 20:00 - Allied health notes Allied health notes reviewed: nursing Medications & Allergies - Medications Allergies/Adverse Reactions: Allergies No Known Allergies Allergy (Verified 11/29/13 10:39) Home Medications: Home Medications Medication Instructions Recorded Confirmed Last Taken Type ALPRAZolam [Xanax TAB] 0.5 mg PO BID 03/21/13 08/20/19 01/29/14 History Amlodipine Bes/Olmesartan Med 2.5 mg PO QDAY 03/21/13 08/20/19 1 Day Ago History [Shekhar 10-20 mg] ~08/19/19 Glimepiride [Amaryl] 2 mg PO QAM 03/21/13 08/20/19 1 Day Ago History ~08/19/19 2 mg Losartan [Cozaar] 25 mg PO QDAY 03/21/13 08/20/19 1 Day Ago History ~08/19/19 25 mg Atorvastatin [Lipitor] 40 mg PO QHS 11/13/13 08/20/19 01/29/14 History Oxycodone HCl/Acetaminophen 1 each PO Q6HR PRN #20 tablet 11/29/13 08/20/19 01/30/14 Rx [Percocet 7.5/325 mg] Aspirin EC [Ecotrin] 325 mg PO QDAY #30 tablet 02/08/14 08/20/19 Unknown Rx Clopidogrel [Plavix] 75 mg PO QDAY #30 tablet 02/08/14 08/20/19 Unknown Rx Pantoprazole [Protonix TAB] 40 mg PO QDAY #30 tablet 02/08/14 08/20/19 1 Day Ago Rx ~08/19/19 40 mg carvediloL [Coreg] 3.125 mg PO BID #60 tablet 02/08/14 08/20/19 Unknown Rx levETIRAcetam [Keppra TAB] 1,500 mg PO BID 08/20/19 08/20/19 Unknown History Citalopram [celeXA] 40 mg PO QDAY 08/22/19 08/22/19 Unknown History Active Medications: Generic Name Dose Route Start Last Admin Trade Name Freq PRN Reason Stop Dose Admin Alprazolam 0.5 mg 08/20/19 10:00 09/06/19 22:02 Xanax PO 0.5 mg BID SHARON Administration Lipase/Protease/Amylase 1 each 08/23/19 14:[address] 10,500 Unit FEEDTUBE PRN PRN For Clogged Feeding Tube Aspirin 325 mg 08/20/19 10:00 09/06/19 14:58 Ecotrin PO 325 mg QDAY SHARON Administration Carvedilol 3.125 mg 08/20/19 22:00 09/06/19 22:02 Coreg PO 3.125 mg BID SHARON Administration Clopidogrel Bisulfate 75 mg 08/20/19 10:00 09/06/19 14:58 Plavix PO 75 mg QDAY SHARON Administration Epoetin Rahul 10,000 unit 08/25/19 09:32 09/06/19 13:31 Procrit IV 10,000 unit DESIRAE PRN Administration hemodialysis Famotidine 20 mg 09/01/19 10:00 09/06/19 14:58 Pepcid PO 20 mg DAILY SHARON Administration Heparin Sodium (Porcine) 5,000 unit 08/24/19 22:00 09/06/19 22:02 Heparin SUB-Q 5,000 unit Q12HR SHARON Administration Heparin Sodium (Porcine) 5,000 unit 08/25/19 09:32 09/06/19 13:31 Heparin IV 5,000 unit DESIRAE PRN Administration hemodialysis Hydralazine HCl 10 mg 08/20/19 09:00 08/26/19 20:15 Apresoline IV 10 mg Q4HR PRN Administration Hypertension Sodium Chloride 100 mls @ 999 mls/hr 09/02/19 09:30 Nacl 0.9% IV DESIRAE PRN Hypotension Insulin Human Lispro 0 unit 09/06/19 12:00 09/07/19 06:29 Humalog SUB-Q 3 unit Q6HR SHARON Administration Protocol Insulin Human NPH 15 unit 08/31/19 17:00 09/06/19 16:55 Humulin N SUB-Q 15 unit BIDDIAB SHARON Administration Levetiracetam 1,500 mg 08/23/19 22:00 09/06/19 22:02 Keppra FEEDTUBE 1,500 mg BID SHARON Administration Nitroglycerin 0.4 mg 08/20/19 19:00 Nitrostat SL .Q5MIN PRN Chest Pain Oxycodone/Acetaminophen 1 tab 08/21/19 20:37 09/06/19 22:03 Percocet 5/325 PO 1 tab Q6H PRN Administration Pain, Moderate (4-6) Simple Syrup 15 ml 08/23/19 14:47 Simple Syrup FEEDTUBE PRN PRN Hypoglycemia Simple Syrup 30 ml 08/23/19 14:47 Simple Syrup FEEDTUBE PRN PRN Hypoglycemia Sodium Bicarbonate 325 mg 08/23/19 14:47 Sodium Bicarbonate FEEDTUBE PRN PRN For Clogged Feeding Tube
[2019-09-07] MEDS: levETIRAcetam 500 MG/5 ML ORAL LIQD FEEDTUBE SCH ×2 (09:50→21:43)
[2019-09-07] MEDS: carvediloL 3.125 MG TAB PO SCH ×2 (09:51→21:43)
[2019-09-07] MEDS: ASPIRIN EC 325 MG TAB PO SCH (09:51)
[2019-09-07] MEDS: ALPRAZolam 0.5 MG TAB PO SCH ×2 (09:51→21:44)
[2019-09-07] MEDS: FAMOTIDINE 20 MG TAB PO SCH (09:52)
--- NOTE | 2019-09-07 12:30 | Gastroenterology Progress Note ---
Assessment and Plan 84-year-old -[place]rist[place] female patient with significant history of hypertension ,diabetes mellitus, coronary artery disease status post PCI ,CVA and seizure disorder Presented to the emergency room with complaints of generalized weakness, work-up is consistent with acute renal failure, acute liver failure, severe rhabdomyolysis due to statin use, non-ST elevation NH, severe metabolic encephalopathy. GI was consulted earlier in the admission for elevated liver enzymes. Consulted again for PEG placement. # Worsening renal function # Rhabdomyolysis # acute encephalopathy # Poor PO intake. # Transaminitis: liver enzymes trending down. - discussed with the son on the phone regarding the nature of the procedure and potential complications including but not limited to bleeding, infection, bowel injury, and cardiopulmonary complications. Also explained that PEG tube would not change her underlying condition and there is still risk for aspiration. He would like to pursue with the procedure. - last dose of plavix on 09/06/2019. Now it's held. - will plan for EGD/PEG tentatively on 09/11/2019. - cont with feeding through the dobhoff in the meantime. Subjective Date of service: 09/07/19 Principal diagnosis: PEG tube placement Interval history: Gi consulted again for PEG tube placement. Patient has had dobhoff tube for fe eding. Family would like to pursue PEG tube placement. Objective - Constitutional Vitals: Temp Pulse Resp BP Pulse Ox 99.3 F 73 22 108/39 97 09/07/19 11:26 09/07/19 11:26 09/07/19 11:26 09/07/19 11:26 09/07/19 11:26 General appearance: no acute distress - EENT ENT: poor dentition - Respiratory Respiratory: bilateral: diminished - Cardiovascular Rhythm: regular Heart Sounds: Present: S1 & S2 - Gastrointestinal General gastrointestinal: Present: soft, non-tender, non-distended - Labs CBC & Chem 7: 09/07/19 04:26 09/07/19 04:26 Labs: Laboratory Results - last 24 hr 09/06/19 09/06/19 09/06/19 14:41 18:01 22:59 WBC RBC Hgb Hct MCV MCH MCHC RDW Plt Count Sodium Potassium Chloride Carbon Dioxide Anion Gap BUN Creatinine Estimated GFR BUN/Creatinine Ratio Glucose POC Glucose 247 H 280 H 252 H Calcium Total Bilirubin AST ALT Alkaline Phosphatase Total Protein Albumin Albumin/Globulin Ratio Blood Type Antibody Screen Crossmatch 09/07/19 09/07/19 09/07/19 04:26 04:26 06:07 WBC 16.1 H RBC 2.06 L Hgb 6.7 L Hct 20.9 L MCV 102 H MCH 33 H MCHC 32 RDW 20.3 H Plt Count 241 Sodium 139 Potassium 4.1 Chloride 95.8 L Carbon Dioxide 26 Anion Gap 21 BUN 69 H Creatinine 4.0 H Estimated GFR 13 BUN/Creatinine Ratio 17 Glucose 203 H POC Glucose 237 H Calcium 8.4 Total Bilirubin 0.20 AST 37 ALT 107 H Alkaline Phosphatase 78 Total Protein 5.2 L Albumin 2.3 L Albumin/Globulin Ratio 0.8 Blood Type Antibody Screen Crossmatch 09/07/19 08:54 WBC RBC Hgb Hct MCV MCH MCHC RDW Plt Count Sodium Potassium Chloride Carbon Dioxide Anion Gap BUN Creatinine Estimated GFR BUN/Creatinine Ratio Glucose POC Glucose Calcium Total Bilirubin AST ALT Alkaline Phosphatase Total Protein Albumin Albumin/Globulin Ratio Blood Type A POSITIVE Antibody Screen Negative Crossmatch See Detail
[2019-09-07] MEDS: oxyCODONE /ACETAMINOPHEN 5-325MG TAB PO PRN (14:07)
--- NOTE | 2019-09-07 17:21 | Progress Note ---
Assessment and Plan Assessment and plan: 84-year-old -[place] female patient with significant history of hypertension ,diabetes mellitus, coronary artery disease status post PCI ,CVA and seizure disorder Presented to the emergency room with complaints of generalized weakness, work-up is consistent with acute renal failure, acute liver failure, severe rhabdomyolysis due to statin use, non-ST elevation PR, severe metabolic encephalopathy, multiple specialists are following the patient. * During the course of hospitalization patient was started on hemodialysis with noted improvement in rhabdomyolysis and also mental status. She continues to require hemodialysis. * Statin was discontinued as this was felt to be the inciting factor * Initially there was a discussion for speech evaluation which was done with recommendation for pured diet unfortunately the patient has not been tolerating this and requiring surgical consult to consider PEG placement per the family. Family also made the patient a DNR at this time. * Patient has a history of CVA with residual weakness although was ambulatory prior to this hospitalization. * Once nutritional pathways achieved and outpatient dialysis achieved patient can be discharged Important active issues: 1. Worsening renal function; nephrology initiated hemodialysis - need outpt setup 2. Severe rhabdomyolysis; with renal and liver failure due to statin, improving 3. Acute liver failure/transaminitis - trending down 4. Non-ST elevation PR; medical Mx 5. Acute encephalopathy, improved, placed on pureed diet 6. Poor p.o. intake: PEG placement recommended : Currently unable to tolerate PO. continue HD, check chxr considering low grade temp although resolved now. GI consulted for Tube feed placement, family again states that they want PEG Tube. Aspiration precauitions, keep HOB elevated. 09/07/19: Noted to have significant blood loss with hemoglobin down to 6.2. 1 unit packed red blood cells transfused. Discontinued Plavix discussed with GI anticipate PEG placement soon. Family not available at this time will like to discuss possible hospice with them. Patient very lethargic remote markedly decompensated. /Acute kidney injury; likely ATN Worsening renal function, nephrology following - on HD now need outpt HD setup, s/p permcath placement by vascular /Rhabdomyolysis; likely from statin CpK trended upto ~28,000, placed on vigorous IV hydration w/o sig improvement - now on HD Monitor renal function, cont to Hold statin, low volume HCO3 drip, nephrology following, CPK now continues to trend down /Transaminitis; unknown etiology - trending down with normal ele Hepatitis panel negative, no stone in abdominal ultrasound + biliary sludge, no cholecystitis, dilated common bile duct GI following, unable to do MRI due to ICD Management supportive per GI /Metabolic encephalopathy; multifactorial - improved Uremia, transaminitis, acidosis, advanced age with underlying dementia Patient is lethargic but alert, Dobbhoff in place For medications and tube feeding cont supportive care, s/p repeat CT head showed no acute CVA speech eval ordered - recommended pureed diet with nectar thick liquid /Metabolic acidosis: due acute kidney injury, mgt per neurology - placed on hCO3 drip, now also on HD /Severe hypokalemia; resolved Closely monitor electrolytes and replete as needed /Non-ST elevation PR; In the setting of acute renal failure and acute rhabdo could be NSTEMI 2 However patient has risk factors, coronary artery disease - status post PCI in 2013 monitore with Serial cardiac enzymes, antiplatelets, beta-blockers echocardiogram, Cardiology evaluated - no cardiac work-up intended /Coronary artery disease status post PCI /ICD in place; monitor, cardiology evaluation if needed /Dyslipidemia; hold statin in view of rhabdo/transaminitis /Type 2 diabetes mellitus; Accu-Chek sliding scale coverage ADA diet, insulin as needed /History of seizure disorder; seizure precautions Continue Keppra /Anemia-we will transfuse 1 unit packed red blood cell /Severe protein calorie malnutrition Dietitian consult /hypertension; moderate control Continue current antihypertensives and PRN medications --DVT prophylaxis; heparin renal dose --DNR -- Discussed with son Patient remains very lethargic. Will discuss with family about possible hospice. Will check ammonia level and repeat CPK. He is planned for discharge to SNF if hospice is not an option. History Interval history: Patient seen and examined this morning. Remains lethargic Hospitalist Physical - Physical exam Narrative exam: VITAL SIGNS: Reviewed. GENERAL: The patient appears chronically ill, lethargic, favors the left side. Very weak vital signs as documented. HEAD: No signs of head trauma. EYES: Pupils are equal. Extraocular motions intact. EARS: Hearing grossly intact. MOUTH: Left facial droop NECK: No adenopathy, no JVD. CHEST: Chest with diminished breath sounds bilaterally. No wheezes, rales, or rhonchi. CARDIAC: Regular rate and rhythm. S1 and S2, without murmurs, gallops, or rubs. VASCULAR: No Edema. Peripheral pulses normal and equal in all extremities. ABDOMEN: Soft, non tender and non distended. No rebound or guarding, and no masses palpated. Bowel Sounds normal. MUSCULOSKELETAL: Extremities without clubbing, cyanosis or edema. NEUROLOGIC EXAM: Awake but lethargic and oriented x 3 No focal sensory or strength deficits. Speech labored. Follows some commands but very lethargic unable to move lower extremities . PSYCHIATRIC: Mood unable to access SKIN: detail exam as documented in skin assessment - Constitutional Vitals: Temp Pulse Resp BP Pulse Ox 98.8 F 73 22 121/40 98 09/07/19 14:22 09/07/19 14:22 09/07/19 14:22 09/07/19 14:22 09/07/19 14:22 General appearance: Present: mild distress, well-nourished, other (Lethargic) Results - Labs CBC & Chem 7: 09/07/19 04:26 09/07/19 04:26 Labs: Laboratory Last Values WBC 16.1 K/mm3 (4.5-11.0) H 09/07/19 04:26 RBC 2.06 M/mm3 (3.65-5.03) L 09/07/19 04:26 Hgb 6.7 gm/dl (10.1-14.3) L 09/07/19 04:26 Hct 20.9 % (30.3-42.9) L 09/07/19 04:26 MCV 102 fl (79-97) H 09/07/19 04:26 MCH 33 pg (28-32) H 09/07/19 04:26 MCHC 32 % (30-34) 09/07/19 04:26 RDW 20.3 % (13.2-15.2) H 09/07/19 04:26 Plt Count 241 K/mm3 (140-440) 09/07/19 04:26 Lymph % (Auto) 9.3 % (13.4-35.0) L 09/04/19 07:19 [place] % (Auto) 7.0 % (0.0-7.3) 09/04/19 07:19 Eos % (Auto) 0.5 % (0.0-4.3) 09/04/19 07:19 Baso % (Auto) 0.1 % (0.0-1.8) 09/04/19 07:19 Lymph # 1.2 K/mm3 (1.2-5.4) 09/04/19 07:19 [place] # 0.9 K/mm3 (0.0-0.8) H 09/04/19 07:19 Eos # 0.1 K/mm3 (0.0-0.4) 09/04/19 07:19 Baso # 0.0 K/mm3 (0.0-0.1) 09/04/19 07:19 Seg Neutrophils % 83.1 % (40.0-70.0) H 09/04/19 07:19 Seg Neutrophils # 10.8 K/mm3 (1.8-7.7) H 09/04/19 07:19 PT 14.6 Sec. (12.2-14.9) 08/29/19 10:15 INR 1.12 (0.87-1.13) 08/29/19 10:15 APTT 59.6 Sec. (24.2-36.6) H 08/20/19 23:09 Heparin Anti-Xa Level 0.18 U.I./ml (0.3-0.7) L 08/22/19 15:01 Sodium 139 mmol/L (137-145) 09/07/19 04:26 Potassium 4.1 mmol/L (3.6-5.0) 09/07/19 04:26 Chloride 95.8 mmol/L (98-107) L 09/07/19 04:26 Carbon Dioxide 26 mmol/L (22-30) 09/07/19 04:26 Anion Gap 21 mmol/L 09/07/19 04:26 BUN 69 mg/dL (7-17) H 09/07/19 04:26 Creatinine 4.0 mg/dL (0.7-1.2) H 09/07/19 04:26 Estimated GFR 13 ml/min 09/07/19 04:26 BUN/Creatinine Ratio 17 % 09/07/19 04:26 Glucose 203 mg/dL (65-100) H 09/07/19 04:26 POC Glucose 314 (70-105) H 09/07/19 11:39 Lactic Acid 1.70 mmol/L (0.7-2.0) 08/20/19 23:09 Calcium 8.4 mg/dL (8.4-10.2) 09/07/19 04:26 Magnesium 2.00 mg/dL (1.7-2.3) 08/25/19 07:01 Total Bilirubin 0.20 mg/dL (0.1-1.2) 09/07/19 04:26 Direct Bilirubin < 0.2 mg/dL (0-0.2) 08/31/19 09:47 Indirect Bilirubin 0.1 mg/dL 08/31/19 09:47 AST 37 units/L (5-40) 09/07/19 04:26 ALT 107 units/L (7-56) H 09/07/19 04:26 Alkaline Phosphatase 78 units/L (35-129) 09/07/19 04:26 Ammonia 48.0 umol/L (25-60) 09/05/19 09:07 Total Creatine Kinase 599 units/L (30-135) H 09/06/19 Unknown CK-MB (CK-2) 73.0 ng/mL (0.0-4.0) H 08/21/19 05:35 CK-MB (CK-2) Rel Index 0.3 (0-4) 08/21/19 05:35 Troponin T 0.196 ng/mL (0.00-0.029) H* 08/21/19 05:35 Total Protein 5.2 g/dL (6.3-8.2) L 09/07/19 04:26 Albumin 2.3 g/dL (3.9-5) L 09/07/19 04:26 Albumin/Globulin Ratio 0.8 % 09/07/19 04:26 Triglycerides 125 mg/dL (2-149) 08/20/19 06:11 Cholesterol 89 mg/dL (50-199) 08/20/19 06:11 LDL Cholesterol Direct 45 mg/dL (50-130) L 08/20/19 06:11 HDL Cholesterol 25 mg/dL (40-59) L 08/20/19 06:11 Cholesterol/HDL Ratio 3.56 % 08/20/19 06:11 Urine Color Red (Yellow) 08/20/19 07:38 Urine Turbidity Cloudy (Clear) 08/20/19 07:38 Urine pH 5.0 (5.0-7.0) 08/20/19 07:38 Ur Specific [place] 1.013 (1.003-1.030) 08/20/19 07:38 Urine Protein 100 mg/dl mg/dL (Negative) 08/20/19 07:38 Urine Glucose (UA) Neg mg/dL (Negative) 08/20/19 07:38 Urine Ketones Neg mg/dL (Negative) 08/20/19 07:38 Urine Blood Lg (Negative) 08/20/19 07:38 Urine Nitrite Neg (Negative) 08/20/19 07:38 Urine Bilirubin Neg (Negative) 08/20/19 07:38 Urine Urobilinogen < 2.0 mg/dL (<2.0) 08/20/19 07:38 Ur Leukocyte Esterase Sm (Negative) 08/20/19 07:38 Urine WBC (Auto) 25.0 /HPF (0.0-6.0) H 08/20/19 07:38 Urine RBC (Auto) 4.0 /HPF (0.0-6.0) 08/20/19 07:38 U Epithel Cells (Auto) 3.0 /HPF (0-13.0) 08/20/19 07:38 Urine Bacteria (Auto) 1+ /HPF (Negative) 08/20/19 07:38 Amorphous Crystals Few 08/20/19 07:38 Urine Creatinine 102.1 mg/dL (0.1-20.0) H 08/21/19 20:00 Protein/Creatinin Ratio 1.72 08/21/19 20:00 Urine Sodium 44 mmol/L 08/21/19 10:06 Urine Potassium 23.15 mmol/L 08/21/19 10:06 Urine Chloride 22.8 mmolL (110-250) L 08/21/19 10:06 Urine Total Protein 176 mg/dL (5-11.8) H 08/21/19 20:00 Urine Opiates Screen Presumptive positive 08/21/19 20:00 Urine Methadone Screen Presumptive negative 08/21/19 20:00 Acetaminophen < 5.0 ug/mL (10.0-30.0) L 08/22/19 04:34 Ur Barbiturates Screen Presumptive negative 08/21/19 20:00 Ur Phencyclidine Scrn Presumptive negative 08/21/19 20:00 Ur Amphetamines Screen Presumptive negative 08/21/19 20:00 U Benzodiazepines Scrn Presumptive positive 08/21/19 20:00 Urine Cocaine Screen Presumptive negative 08/21/19 20:00 U Marijuana (THC) Screen Presumptive negative 08/21/19 20:00 Drugs of Abuse Note Disclamer 08/21/19 20:00 Proteinase 3 (PR3) Ab <1.0 AI (<1.0) 08/21/19 08:51 Myeloperoxidase Ab <1.0 AI (<1.0) 08/21/19 08:51 Complement C3 136 mg/dL () 08/21/19 08:51 Complement C4 46 mg/dL () 08/21/19 08:51 Hepatitis A IgM Ab Non-reactive (NonReactive) 08/20/19 23:09 Hep Bs Antigen Non-reactive (Negative) 08/26/19 05:49 Hep B Core IgM Ab Non-reactive (NonReactive) 08/20/19 23:09 Hepatitis C Antibody Non-reactive (NonReactive) 08/26/19 05:49 Blood Type A POSITIVE 09/07/19 08:54 Antibody Screen Negative 09/07/19 08:54 Crossmatch See Detail 09/07/19 08:54 Active Medications - Current Medications Current Medications: Generic Name Dose Route Start Last Admin Trade Name Freq PRN Reason Stop Dose Admin Alprazolam 0.5 mg 08/20/19 10:00 09/07/19 09:51 Xanax PO 0.5 mg BID SHARON Administration Lipase/Protease/Amylase 1 each 08/23/19 14:47 Pancreaze 10,500 Unit FEEDTUBE PRN PRN For Clogged Feeding Tube Aspirin 325 mg 08/20/19 10:00 09/07/19 09:51 Ecotrin PO 325 mg QDAY SHARON Administration Carvedilol 3.125 mg 08/20/19 22:00 09/07/19 09:51 Coreg PO 3.125 mg BID SHARON Administration Epoetin Rahul 10,000 unit 08/25/19 09:32 09/06/19 13:31 Procrit IV 10,000 unit DESIRAE PRN Administration hemodialysis Famotidine 20 mg 09/01/19 10:00 09/07/19 09:52 Pepcid PO 20 mg DAILY SHARON Administration Heparin Sodium (Porcine) 5,000 unit 08/25/19 09:32 09/06/19 13:31 Heparin IV 5,000 unit DESIRAE PRN Administration hemodialysis Heparin Sodium (Porcine) 5,000 unit 09/08/19 22:00 Heparin SUB-Q Q12HR SHARON Hydralazine HCl 10 mg 08/20/19 09:00 08/26/19 20:15 Apresoline IV 10 mg Q4HR PRN Administration Hypertension Sodium Chloride 100 mls @ 999 mls/hr 09/02/19 09:30 Nacl 0.9% IV DESIRAE PRN Hypotension Insulin Human Lispro 0 unit 09/06/19 12:00 09/07/19 11:30 Humalog SUB-Q 6 unit Q6HR SHARON Administration Protocol Insulin Human NPH 15 unit 08/31/19 17:00 09/07/19 08:00 Humulin N SUB-Q 15 unit BIDDIAB SHARON Administration Levetiracetam 1,500 mg 08/23/19 22:00 09/07/19 09:50 Keppra FEEDTUBE 1,500 mg BID SHARON Administration Nitroglycerin 0.4 mg 08/20/19 19:00 Nitrostat SL .Q5MIN PRN Chest Pain Oxycodone/Acetaminophen 1 tab 08/21/19 20:37 09/07/19 14:07 Percocet 5/325 PO 1 tab Q6H PRN Administration Pain, Moderate (4-6) Simple Syrup 15 ml 08/23/19 14:47 Simple Syrup FEEDTUBE PRN PRN Hypoglycemia Simple Syrup 30 ml 08/23/19 14:47 Simple Syrup FEEDTUBE PRN PRN Hypoglycemia Sodium Bicarbonate 325 mg 08/23/19 14:47 Sodium Bicarbonate FEEDTUBE PRN PRN For Clogged Feeding Tube Nutrition/Malnutrition Assess - Dietary Evaluation Nutrition/Malnutrition Findings: Nutrition Notes Start: 08/22/19 10:11 Freq: Status: Active Protocol: Document 09/03/19 10:56 LM (Rec: 09/03/19 10:59 LM [facility]) Nutrition Notes Initial or Follow up Reassessment Current Diagnosis Acute Kidney Injury,CKD(stage I-IV),Coronary Artery Disease, Diabetes Other Pertinent Diagnosis GERD, hypokalemia, anemia, Current Diet Glucerna 1.2 at 50ml/hr Labs/Tests BUN 74 Cr 3.5 BG 156 Pertinent Medications Humulin Humalog Height 5 ft 5 in Weight 84.5 kg [place] Body Weight (kg) 56.81 BMI 30.9 Weight Status Overweight Subjective/Other Information Glucerna running at 50 ml/hr at time of visit. Pt tolerating TF. Percent of energy/protein needs met: 93%/100% Burn Absent Trauma Absent GI Symptoms None Current % PO Negligible Minimum of two criteria No Reduced [employer] Strength Measurably Reduced (severe) #1 Nutrition Diagnosis Inadequate oral intake Diagnosis Progress(for reassessment Continues documentation) Is patient on ventilator? No Is Patient Ambulatory and/or Out of Bed No REE-([facility]-confined to bed) [phone] Calculation Used for Recommendations Kcal/kg Additional Notes protein needs: 61 - 77g (0.8 - 1 g/kgBW) (JULIANO w/ no dialysis) fluid needs: 1 ml/kcal Nutrition Intervention Change Diet Order: Continue TF Nutrition Support: Glucerna 1.2 at 50 ml/hr Flush 100 ml q4h Kcal 1,440 Protein (gm) 72 Fluid (mL) 966 Goal #1 Meet at least 80% of energy and protein needs via TF Anticipated Discharge Needs: TF Follow-Up By: 09/10/19 Additional Comments F/U for TF tolerance
[2019-09-08] MEDS: INSULIN LISPRO 100 UNIT/ML SUB-Q SCH ×5 (00:48→23:44)
[2019-09-08] MEDS: INSULIN NPH, HUMAN 100 UNIT/1 ML SUB-Q SCH ×2 (10:17→17:21)
[2019-09-08] MEDS: ASPIRIN EC 325 MG TAB PO SCH (10:18)
[2019-09-08] MEDS: levETIRAcetam 500 MG/5 ML ORAL LIQD FEEDTUBE SCH ×2 (10:18→22:27)
[2019-09-08] MEDS: ALPRAZolam 0.5 MG TAB PO SCH ×2 (10:19→22:26)
[2019-09-08] MEDS: FAMOTIDINE 20 MG TAB PO SCH (10:19)
[2019-09-08] MEDS: carvediloL 3.125 MG TAB PO SCH ×2 (10:20→22:56)
--- NOTE | 2019-09-08 10:26 | Progress Note ---
Assessment and Plan - Patient Problems (1) Acute renal failure Current Visit: Yes Status: Acute Plan to address problem: Acute tubular necrosis secondary to rhabdomyolysis. no significant renal recovery seen. Cont temporary HD on TTS schedule, outpatient arrangement as per case management. (2) Acute renal failure due to rhabdomyolysis Current Visit: Yes Status: Acute Plan to address problem: Probably statin induced. Statin has been stopped. CPK is improving. (3) Hypertensive chronic kidney disease with stage 1 through stage 4 chronic kidney disease, or unspecified chronic kidney disease Current Visit: Yes Status: Acute Plan to address problem: monitor BP on current meds (4) Type 2 diabetes mellitus with diabetic chronic kidney disease Current Visit: Yes Status: Chronic Plan to address problem: DM management per primary attending. (5) Metabolic acidosis Current Visit: Yes Status: Acute Plan to address problem: improved with HD (6) Encephalopathy acute Current Visit: Yes Status: Acute Plan to address problem: Probably toxic encephalopathy which is improving with dialysis. Continue to monitor mental status (7) Transaminasemia Current Visit: Yes Status: Acute Plan to address problem: Liver function improving. Follow-up liver function test off of statin Subjective Date of service: 09/08/19 Principal diagnosis: PEG tube placement Interval history: Pt awake, alert, in no acute respiratory distress. Objective - Vital Signs Vital signs: Vital Signs - 12hr 09/08/19 04:44 Temperature 98.7 F Pulse Rate 82 Respiratory 24 Rate Blood Pressure 108/31 [Right] O2 Sat by Pulse 100 Oximetry - General Appearance General appearance: well-developed, well-nourished, appears stated age EENT: ATNC, PERRL, mucous membranes moist Neck: no JVD Respiratory: Present: Clear to Ascultation Cardiology: regular, S1S2 Gastrointestinal: normoactive bowel sounds Integumentary: no rash, other (no edema ) Neurologic: no focal deficit, alert and oriented x3, strength 5/5, CN 3-12 intact Psychiatric: mood/affect appropriate, cooperative - Lab 09/07/19 04:26 09/07/19 04:26 Most recent lab results Calcium 8.4 mg/dL (8.4-10.2) 09/07/19 04:26 Magnesium 2.00 mg/dL (1.7-2.3) 08/25/19 07:01 Urine Creatinine 102.1 mg/dL (0.1-20.0) H 08/21/19 20:00 Urine Sodium 44 mmol/L 08/21/19 10:06 Urine Total Protein 176 mg/dL (5-11.8) H 08/21/19 20:00 Medications & Allergies - Medications Allergies/Adverse Reactions: Allergies No Known Allergies Allergy (Verified 11/29/13 10:39) Home Medications: Home Medications Medication Instructions Recorded Confirmed Last Taken Type ALPRAZolam [Xanax TAB] 0.5 mg PO BID 03/21/13 08/20/19 01/29/14 History Amlodipine Bes/Olmesartan Med 2.5 mg PO QDAY 03/21/13 08/20/19 1 Day Ago History [Shekhar 10-20 mg] ~08/19/19 Glimepiride [Amaryl] 2 mg PO QAM 03/21/13 08/20/19 1 Day Ago History ~08/19/19 2 mg Losartan [Cozaar] 25 mg PO QDAY 03/21/13 08/20/19 1 Day Ago History ~08/19/19 25 mg Atorvastatin [Lipitor] 40 mg PO QHS 11/13/13 08/20/19 01/29/14 History Oxycodone HCl/Acetaminophen 1 each PO Q6HR PRN #20 tablet 11/29/13 08/20/19 01/30/14 Rx [Percocet 7.5/325 mg] Aspirin EC [Ecotrin] 325 mg PO QDAY #30 tablet 02/08/14 08/20/19 Unknown Rx Clopidogrel [Plavix] 75 mg PO QDAY #30 tablet 02/08/14 08/20/19 Unknown Rx Pantoprazole [Protonix TAB] 40 mg PO QDAY #30 tablet 02/08/14 08/20/19 1 Day Ago Rx ~08/19/19 40 mg carvediloL [Coreg] 3.125 mg PO BID #60 tablet 02/08/14 08/20/19 Unknown Rx levETIRAcetam [Keppra TAB] 1,500 mg PO BID 08/20/19 08/20/19 Unknown History Citalopram [celeXA] 40 mg PO QDAY 08/22/19 08/22/19 Unknown History Active Medications: Generic Name Dose Route Start Last Admin Trade Name Freq PRN Reason Stop Dose Admin Alprazolam 0.5 mg 08/20/19 10:00 09/07/19 21:44 Xanax PO 0.5 mg BID SHARON Administration Lipase/Protease/Amylase 1 each 08/23/19 14:47 Pancreaze 10,500 Unit FEEDTUBE PRN PRN For Clogged Feeding Tube Aspirin 325 mg 08/20/19 10:00 09/07/19 09:51 Ecotrin PO 325 mg QDAY SHARON Administration Carvedilol 3.125 mg 08/20/19 22:00 09/07/19 21:43 Coreg PO 3.125 mg BID SHARON Administration Epoetin Rahul 10,000 unit 08/25/19 09:32 09/06/19 13:31 Procrit IV 10,000 unit DESIRAE PRN Administration hemodialysis Famotidine 20 mg 09/01/19 10:00 09/07/19 09:52 Pepcid PO 20 mg DAILY SHARON Administration Heparin Sodium (Porcine) 5,000 unit 08/25/19 09:32 09/06/19 13:31 Heparin IV 5,000 unit DESIRAE PRN Administration hemodialysis Heparin Sodium (Porcine) 5,000 unit 09/08/19 22:00 Heparin SUB-Q Q12HR [facility] Hydralazine HCl 10 mg 08/20/19 09:00 08/26/19 20:15 Apresoline IV 10 mg Q4HR PRN Administration Hypertension Sodium Chloride 100 mls @ 999 mls/hr 09/02/19 09:30 Nacl 0.9% IV DESIRAE PRN Hypotension Insulin Human Lispro 0 unit 09/06/19 12:00 09/08/19 06:02 Humalog SUB-Q 3 unit Q6HR SHARON Administration Protocol Insulin Human NPH 15 unit 08/31/19 17:00 09/07/19 17:38 Humulin N SUB-Q 15 unit BIDDIAB SHARON Administration Levetiracetam 1,500 mg 08/23/19 22:00 09/07/19 21:43 Keppra FEEDTUBE 1,500 mg BID SHARON Administration Nitroglycerin 0.4 mg 08/20/19 19:00 Nitrostat SL .Q5MIN PRN Chest Pain Oxycodone/Acetaminophen 1 tab 08/21/19 20:37 09/07/19 14:07 Percocet 5/325 PO 1 tab Q6H PRN Administration Pain, Moderate (4-6) Simple Syrup 15 ml 08/23/19 14:47 Simple Syrup FEEDTUBE PRN PRN Hypoglycemia Simple Syrup 30 ml 08/23/19 14:47 Simple Syrup FEEDTUBE PRN PRN Hypoglycemia Sodium Bicarbonate 325 mg 08/23/19 14:47 Sodium Bicarbonate FEEDTUBE PRN PRN For Clogged Feeding Tube
--- NOTE | 2019-09-08 10:36 | Progress Note ---
Assessment and Plan Assessment and plan: 84-year-old -[place] female patient with significant history of hypertension ,diabetes mellitus, coronary artery disease status post PCI ,CVA and seizure disorder Presented to the emergency room with complaints of generalized weakness, work-up is consistent with acute renal failure, acute liver failure, severe rhabdomyolysis due to statin use, non-ST elevation OR, severe metabolic encephalopathy, multiple specialists are following the patient. * During the course of hospitalization patient was started on hemodialysis with noted improvement in rhabdomyolysis and also mental status. She continues to require hemodialysis. * Statin was discontinued as this was felt to be the inciting factor * Initially there was a discussion for speech evaluation which was done with recommendation for pured diet unfortunately the patient has not been tolerating this and requiring surgical consult to consider PEG placement per the family. Family also made the patient a DNR at this time. * Patient has a history of CVA with residual weakness although was ambulatory prior to this hospitalization. * Once nutritional pathways achieved and outpatient dialysis achieved patient can be discharged Important active issues: 1. Worsening renal function; nephrology initiated hemodialysis - need outpt setup 2. Severe rhabdomyolysis; with renal and liver failure due to statin, improving 3. Acute liver failure/transaminitis - trending down 4. Non-ST elevation OR; medical Mx 5. Acute encephalopathy, improved, placed on pureed diet 6. Poor p.o. intake: PEG placement recommended : Currently unable to tolerate PO. continue HD, check chxr considering low grade temp although resolved now. GI consulted for Tube feed placement, family again states that they want PEG Tube. Aspiration precauitions, keep HOB elevated. 09/07/19: Noted to have significant blood loss with hemoglobin down to 6.2. 1 unit packed red blood cells transfused. Discontinued Plavix discussed with GI anticipate PEG placement soon. Family not available at this time will like to discuss possible hospice with them. Patient very lethargic remote markedly decompensated. /Acute kidney injury; likely ATN Worsening renal function, nephrology following - on HD now need outpt HD setup, s/p permcath placement by vascular /Rhabdomyolysis; likely from statin CpK trended upto ~28,000, placed on vigorous IV hydration w/o sig improvement - now on HD Monitor renal function, cont to Hold statin, low volume HCO3 drip, nephrology following, CPK now continues to trend down /Transaminitis; unknown etiology - trending down with normal ele Hepatitis panel negative, no stone in abdominal ultrasound + biliary sludge, no cholecystitis, dilated common bile duct GI following, unable to do MRI due to ICD Management supportive per GI /Metabolic encephalopathy; multifactorial - improved Uremia, transaminitis, acidosis, advanced age with underlying dementia Patient is lethargic but alert, Dobbhoff in place For medications and tube feeding cont supportive care, s/p repeat CT head showed no acute CVA speech eval ordered - recommended pureed diet with nectar thick liquid /Metabolic acidosis: due acute kidney injury, mgt per neurology - placed on hCO3 drip, now also on HD /Severe hypokalemia; resolved Closely monitor electrolytes and replete as needed /Non-ST elevation OR; In the setting of acute renal failure and acute rhabdo could be NSTEMI 2 However patient has risk factors, coronary artery disease - status post PCI in 2013 monitore with Serial cardiac enzymes, antiplatelets, beta-blockers echocardiogram, Cardiology evaluated - no cardiac work-up intended /Coronary artery disease status post PCI /ICD in place; monitor, cardiology evaluation if needed /Dyslipidemia; hold statin in view of rhabdo/transaminitis /Type 2 diabetes mellitus; Accu-Chek sliding scale coverage ADA diet, insulin as needed /History of seizure disorder; seizure precautions Continue Keppra /Anemia-we will transfuse 1 unit packed red blood cell /Severe protein calorie malnutrition Dietitian consult /hypertension; moderate control Continue current antihypertensives and PRN medications --DVT prophylaxis; heparin renal dose --DNR -- Discussed with son Disposition; patient is appropriate for hospice. If the family does not accept hospice patient can be discharged to SNF after PEG tube placed which is scheduled on 09/11/2019 because the patient has been on Eliquis. History Interval history: Patient was seen and evaluated this morning, patient is on tube feeding. Hospitalist Physical - Physical exam Narrative exam: Not in cardiopulmonary distress. On NG tube feeding. The patient appeared well nourished and normally developed. Vital signs as documented. Head exam is unremarkable. No scleral icterus . Neck is without jugular venous distension, thyromegaly, or carotid bruits. Lungs are clear to auscultation. Cardiac exam reveals regular rate and Rhythm. Abdominal exam reveals normal bowel sounds, nontender, no organomegaly. Extremities are nonedematous and both femoral and pedal pulses are normal. 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 - Constitutional Vitals: Temp Pulse Resp BP Pulse Ox 98.7 F 82 24 113/42 100 09/08/19 04:44 09/08/19 04:44 09/08/19 04:44 09/08/19 10:20 09/08/19 04:44 General appearance: Present: mild distress, well-nourished, other (Lethargic) Results - Labs CBC & Chem 7: 09/07/19 04:26 09/07/19 04:26 Labs: Laboratory Last Values WBC 16.1 K/mm3 (4.5-11.0) H 09/07/19 04:26 RBC 2.06 M/mm3 (3.65-5.03) L 09/07/19 04:26 Hgb 6.7 gm/dl (10.1-14.3) L 09/07/19 04:26 Hct 20.9 % (30.3-42.9) L 09/07/19 04:26 MCV 102 fl (79-97) H 09/07/19 04:26 MCH 33 pg (28-32) H 09/07/19 04:26 MCHC 32 % (30-34) 09/07/19 04:26 RDW 20.3 % (13.2-15.2) H 09/07/19 04:26 Plt Count 241 K/mm3 (140-440) 09/07/19 04:26 Lymph % (Auto) 9.3 % (13.4-35.0) L 09/04/19 07:19 [place] % (Auto) 7.0 % (0.0-7.3) 09/04/19 07:19 Eos % (Auto) 0.5 % (0.0-4.3) 09/04/19 07:19 Baso % (Auto) 0.1 % (0.0-1.8) 09/04/19 07:19 Lymph # 1.2 K/mm3 (1.2-5.4) 09/04/19 07:19 [place] # 0.9 K/mm3 (0.0-0.8) H 09/04/19 07:19 Eos # 0.1 K/mm3 (0.0-0.4) 09/04/19 07:19 Baso # 0.0 K/mm3 (0.0-0.1) 09/04/19 07:19 Seg Neutrophils % 83.1 % (40.0-70.0) H 09/04/19 07:19 Seg Neutrophils # 10.8 K/mm3 (1.8-7.7) H 09/04/19 07:19 PT 14.6 Sec. (12.2-14.9) 08/29/19 10:15 INR 1.12 (0.87-1.13) 08/29/19 10:15 APTT 59.6 Sec. (24.2-36.6) H 08/20/19 23:09 Heparin Anti-Xa Level 0.18 U.I./ml (0.3-0.7) L 08/22/19 15:01 Sodium 139 mmol/L (137-145) 09/07/19 04:26 Potassium 4.1 mmol/L (3.6-5.0) 09/07/19 04:26 Chloride 95.8 mmol/L (98-107) L 09/07/19 04:26 Carbon Dioxide 26 mmol/L (22-30) 09/07/19 04:26 Anion Gap 21 mmol/L 09/07/19 04:26 BUN 69 mg/dL (7-17) H 09/07/19 04:26 Creatinine 4.0 mg/dL (0.7-1.2) H 09/07/19 04:26 Estimated GFR 13 ml/min 09/07/19 04:26 BUN/Creatinine Ratio 17 % 09/07/19 04:26 Glucose 203 mg/dL (65-100) H 09/07/19 04:26 POC Glucose 210 (70-105) H 09/08/19 05:33 Lactic Acid 1.70 mmol/L (0.7-2.0) 08/20/19 23:09 Calcium 8.4 mg/dL (8.4-10.2) 09/07/19 04:26 Magnesium 2.00 mg/dL (1.7-2.3) 08/25/19 07:01 Total Bilirubin 0.20 mg/dL (0.1-1.2) 09/07/19 04:26 Direct Bilirubin < 0.2 mg/dL (0-0.2) 08/31/19 09:47 Indirect Bilirubin 0.1 mg/dL 08/31/19 09:47 AST 37 units/L (5-40) 09/07/19 04:26 ALT 107 units/L (7-56) H 09/07/19 04:26 Alkaline Phosphatase 78 units/L (35-129) 09/07/19 04:26 Ammonia 48.0 umol/L (25-60) 09/05/19 09:07 Total Creatine Kinase 599 units/L (30-135) H 09/06/19 Unknown CK-MB (CK-2) 73.0 ng/mL (0.0-4.0) H 08/21/19 05:35 CK-MB (CK-2) Rel Index 0.3 (0-4) 08/21/19 05:35 Troponin T 0.196 ng/mL (0.00-0.029) H* 08/21/19 05:35 Total Protein 5.2 g/dL (6.3-8.2) L 09/07/19 04:26 Albumin 2.3 g/dL (3.9-5) L 09/07/19 04:26 Albumin/Globulin Ratio 0.8 % 09/07/19 04:26 Triglycerides 125 mg/dL (2-149) 08/20/19 06:11 Cholesterol 89 mg/dL (50-199) 08/20/19 06:11 LDL Cholesterol Direct 45 mg/dL (50-130) L 08/20/19 06:11 HDL Cholesterol 25 mg/dL (40-59) L 08/20/19 06:11 Cholesterol/HDL Ratio 3.56 % 08/20/19 06:11 Urine Color Red (Yellow) 08/20/19 07:38 Urine Turbidity Cloudy (Clear) 08/20/19 07:38 Urine pH 5.0 (5.0-7.0) 08/20/19 07:38 Ur Specific [place] 1.013 (1.003-1.030) 08/20/19 07:38 Urine Protein 100 mg/dl mg/dL (Negative) 08/20/19 07:38 Urine Glucose (UA) Neg mg/dL (Negative) 08/20/19 07:38 Urine Ketones Neg mg/dL (Negative) 08/20/19 07:38 Urine Blood Lg (Negative) 08/20/19 07:38 Urine Nitrite Neg (Negative) 08/20/19 07:38 Urine Bilirubin Neg (Negative) 08/20/19 07:38 Urine Urobilinogen < 2.0 mg/dL (<2.0) 02 07:38 Ur Leukocyte Esterase Sm (Negative) 08/20/19 07:38 Urine WBC (Auto) 25.0 /HPF (0.0-6.0) H 08/20/19 07:38 Urine RBC (Auto) 4.0 /HPF (0.0-6.0) 08/20/19 07:38 U Epithel Cells (Auto) 3.0 /HPF (0-13.0) 08/20/19 07:38 Urine Bacteria (Auto) 1+ /HPF (Negative) 08/20/19 07:38 Amorphous Crystals Few 08/20/19 07:38 Urine Creatinine 102.1 mg/dL (0.1-20.0) H 08/21/19 20:00 Protein/Creatinin Ratio 1.72 08/21/19 20:00 Urine Sodium 44 mmol/L 08/21/19 10:06 Urine Potassium 23.15 mmol/L 08/21/19 10:06 Urine Chloride 22.8 mmolL (110-250) L 08/21/19 10:06 Urine Total Protein 176 mg/dL (5-11.8) H 08/21/19 20:00 Urine Opiates Screen Presumptive positive 08/21/19 20:00 Urine Methadone Screen Presumptive negative 08/21/19 20:00 Acetaminophen < 5.0 ug/mL (10.0-30.0) L 08/22/19 04:34 Ur Barbiturates Screen Presumptive negative 08/21/19 20:00 Ur Phencyclidine Scrn Presumptive negative 08/21/19 20:00 Ur Amphetamines Screen Presumptive negative 08/21/19 20:00 U Benzodiazepines Scrn Presumptive positive 08/21/19 20:00 Urine Cocaine Screen Presumptive negative 08/21/19 20:00 U Marijuana (THC) Screen Presumptive negative 08/21/19 20:00 Drugs of Abuse Note Disclamer 08/21/19 20:00 Proteinase 3 (PR3) Ab <1.0 AI (<1.0) 08/21/19 08:51 Myeloperoxidase Ab <1.0 AI (<1.0) 08/21/19 08:51 Complement C3 136 mg/dL () 08/21/19 08:51 Complement C4 46 mg/dL () 08/21/19 08:51 Hepatitis A IgM Ab Non-reactive (NonReactive) 08/20/19 23:09 Hep Bs Antigen Non-reactive (Negative) 08/26/19 05:49 Hep B Core IgM Ab Non-reactive (NonReactive) 08/20/19 23:09 Hepatitis C Antibody Non-reactive (NonReactive) 08/26/19 05:49 Blood Type A POSITIVE 09/07/19 08:54 Antibody Screen Negative 09/07/19 08:54 Crossmatch See Detail 09/07/19 08:54 Active Medications - Current Medications Current Medications: Generic Name Dose Route Start Last Admin Trade Name Freq PRN Reason Stop Dose Admin Alprazolam 0.5 mg 08/20/19 10:00 09/08/19 10:19 Xanax PO 0.5 mg BID SHARON Administration Lipase/Protease/Amylase 1 each 08/23/19 14:[address] 10,500 Unit FEEDTUBE PRN PRN For Clogged Feeding Tube Aspirin 325 mg 08/20/19 10:00 09/08/19 10:18 Ecotrin PO 325 mg QDAY SHARON Administration Carvedilol 3.125 mg 08/20/19 22:00 09/08/19 10:20 Coreg PO Not Given BID [facility] Epoetin Rahul 10,000 unit 08/25/19 09:32 09/06/19 13:31 Procrit IV 10,000 unit DESIRAE PRN Administration hemodialysis Famotidine 20 mg 09/01/19 10:00 09/08/19 10:19 Pepcid PO 20 mg DAILY SHARON Administration Heparin Sodium (Porcine) 5,000 unit 08/25/19 09:32 09/06/19 13:31 Heparin IV 5,000 unit DESIRAE PRN Administration hemodialysis Heparin Sodium (Porcine) 5,000 unit 09/08/19 22:00 Heparin SUB-Q Q12HR [facility] Hydralazine HCl 10 mg 08/20/19 09:00 08/26/19 20:15 Apresoline IV 10 mg Q4HR PRN Administration Hypertension Sodium Chloride 100 mls @ 999 mls/hr 09/02/19 09:30 Nacl 0.9% IV DESIRAE PRN Hypotension Insulin Human Lispro 0 unit 09/06/19 12:00 09/08/19 06:02 Humalog SUB-Q 3 unit Q6HR SHARON Administration Protocol Insulin Human NPH 15 unit 08/31/19 17:00 09/08/19 10:17 Humulin N SUB-Q 15 unit BIDDIAB SHARON Administration Levetiracetam 1,500 mg 08/23/19 22:00 09/08/19 10:18 Keppra FEEDTUBE 1,500 mg BID SHARON Administration Nitroglycerin 0.4 mg 08/20/19 19:00 Nitrostat SL .Q5MIN PRN Chest Pain Oxycodone/Acetaminophen 1 tab 08/21/19 20:37 09/07/19 14:07 Percocet 5/325 PO 1 tab Q6H PRN Administration Pain, Moderate (4-6) Simple Syrup 15 ml 08/23/19 14:47 Simple Syrup FEEDTUBE PRN PRN Hypoglycemia Simple Syrup 30 ml 08/23/19 14:47 Simple Syrup FEEDTUBE PRN PRN Hypoglycemia Sodium Bicarbonate 325 mg 08/23/19 14:47 Sodium Bicarbonate FEEDTUBE PRN PRN For Clogged Feeding Tube Nutrition/Malnutrition Assess - Dietary Evaluation Nutrition/Malnutrition Findings: Nutrition Notes Start: 08/22/19 10:11 Freq: Status: Active Protocol: Document 09/03/19 10:56 LM (Rec: 09/03/19 10:59 LM [email or web address]) Nutrition Notes Initial or Follow up Reassessment Current Diagnosis Acute Kidney Injury,CKD(stage I-IV),Coronary Artery Disease, Diabetes Other Pertinent Diagnosis GERD, hypokalemia, anemia, Current Diet Glucerna 1.2 at 50ml/hr Labs/Tests BUN 74 Cr 3.5 BG 156 Pertinent Medications Humulin Humalog Height 5 ft 5 in Weight 84.5 kg [place] Body Weight (kg) 56.81 BMI 30.9 Weight Status Overweight Subjective/Other Information Glucerna running at 50 ml/hr at time of visit. Pt tolerating TF. Percent of energy/protein needs met: 93%/100% Burn Absent Trauma Absent GI Symptoms None Current % PO Negligible Minimum of two criteria No Reduced Authorization Representative Strength Measurably Reduced (severe) #1 Nutrition Diagnosis Inadequate oral intake Diagnosis Progress(for reassessment Continues documentation) Is patient on ventilator? No Is Patient Ambulatory and/or Out of Bed No REE-([place]-[facility] [place]-confined to bed) [id number] Calculation Used for Recommendations Kcal/kg Additional Notes protein needs: 61 - 77g (0.8 - 1 g/kgBW) (JULIANO w/ no dialysis) fluid needs: 1 ml/kcal Nutrition Intervention Change Diet Order: Continue TF Nutrition Support: Glucerna 1.2 at 50 ml/hr Flush 100 ml q4h Kcal 1,440 Protein (gm) 72 Fluid (mL) 966 Goal #1 Meet at least 80% of energy and protein needs via TF Anticipated Discharge Needs: TF Follow-Up By: 09/10/19 Additional Comments F/U for TF tolerance
[2019-09-08] MEDS: HEPARIN 5,000 UNIT/1 ML VIAL SUB-Q SCH (22:27)
[2019-09-09] MEDS ORDERED: ACETAMINOPHEN 325 MG TAB PO ONE (04:49)
[2019-09-09] MEDS: INSULIN LISPRO 100 UNIT/ML SUB-Q SCH ×3 (05:38→17:37)
[2019-09-09] MEDS: oxyCODONE /ACETAMINOPHEN 5-325MG TAB PO PRN (07:16)
--- NOTE | 2019-09-09 07:59 | Progress Note ---
Assessment and Plan Assessment and plan: [id number] -[place] female patient with significant history of hypertension ,diabetes mellitus, coronary artery disease status post PCI ,CVA and seizure disorder Presented to the emergency room with complaints of generalized weakness, work-up is consistent with acute renal failure, acute liver failure, severe rhabdomyolysis due to statin use, non-ST elevation LA, severe metabolic encephalopathy, multiple specialists are following the patient. * During the course of hospitalization patient was started on hemodialysis with noted improvement in rhabdomyolysis and also mental status. She continues to require hemodialysis. * Statin was discontinued as this was felt to be the inciting factor * Initially there was a discussion for speech evaluation which was done with recommendation for pured diet unfortunately the patient has not been tolerating this and requiring surgical consult to consider PEG placement per the family. Family also made the patient a DNR at this time. * Patient has a history of CVA with residual weakness although was ambulatory prior to this hospitalization. * Once nutritional pathways achieved and outpatient dialysis achieved patient can be discharged Important active issues: 1. Worsening renal function; nephrology initiated hemodialysis - need outpt setup 2. Severe rhabdomyolysis; with renal and liver failure due to statin, improving 3. Acute liver failure/transaminitis - trending down 4. Non-ST elevation LA; medical Mx 5. Acute encephalopathy, improved, placed on pureed diet 6. Poor p.o. intake: PEG placement recommended : Currently unable to tolerate PO. continue HD, check chxr considering low grade temp although resolved now. GI consulted for Tube feed placement, family again states that they want PEG Tube. Aspiration precautions, keep HOB elevated. 09/07/19: Noted to have significant blood loss with hemoglobin down to 6.2. 1 unit packed red blood cells transfused. Discontinued Plavix discussed with GI anticipate PEG placement soon. Family not available at this time will like to discuss possible hospice with them. Patient very lethargic remote markedly decompensated 09/08: Noted fever, ID consulted, Sepsis work up ongoing. Check labs, anticipating PEG placement in 2 days. Repeat hemoglobin still 6.7 will give additional unit of blood. We will also obtain a CT abdomen and pelvis with oral contrast to further evaluate for possible underlining ischemic colitis. /Acute kidney injury; likely ATN Worsening renal function, nephrology following - on HD now need outpt HD setup, s/p permcath placement by vascular /Rhabdomyolysis; likely from statin CpK trended upto ~28,000, placed on vigorous IV hydration w/o sig improvement - now on HD Monitor renal function, cont to Hold statin, low volume HCO3 drip, nephrology following, CPK now continues to trend down /Transaminitis; unknown etiology - trending down with normal ele Hepatitis panel negative, no stone in abdominal ultrasound + biliary sludge, no cholecystitis, dilated common bile duct GI following, unable to do MRI due to ICD Management supportive per GI /Metabolic encephalopathy; multifactorial - improved Uremia, transaminitis, acidosis, advanced age with underlying dementia Patient is lethargic but alert, Dobbhoff in place For medications and tube feeding cont supportive care, s/p repeat CT head showed no acute CVA speech eval ordered - recommended pureed diet with nectar thick liquid but patient failed /Metabolic acidosis: due acute kidney injury, mgt per neurology - placed on hCO3 drip, now also on HD /Severe hypokalemia; resolved Closely monitor electrolytes and replete as needed /Non-ST elevation LA; In the setting of acute renal failure and acute rhabdo could be NSTEMI 2 However patient has risk factors, coronary artery disease - status post PCI in 2013 monitore with Serial cardiac enzymes, antiplatelets, beta-blockers echoca rdiogram, Cardiology evaluated - no cardiac work-up intended /Coronary artery disease status post PCI /ICD in place; monitor, cardiology evaluation if needed /Dyslipidemia; hold statin in view of rhabdo/transaminitis /Type 2 diabetes mellitus; Accu-Chek sliding scale coverage ADA diet, insulin as needed /History of seizure disorder; seizure precautions Continue Keppra /Anemia-we will transfuse 1 unit packed red blood cell /Severe protein calorie malnutrition Dietitian consult /hypertension; moderate control Continue current antihypertensives and PRN medications --DVT prophylaxis; heparin renal dose --DNR -- Discussed with son Disposition; patient is appropriate for hospice. If the family does not accept hospice patient can be discharged to SNF after PEG tube placed which is scheduled on 09/11/2019 because the patient has been on Eliquis. Poor prognosis History Interval history: Patient seen and examined this morning. Remains lethargic Hospitalist Physical - Physical exam Narrative exam: VITAL SIGNS: Reviewed. GENERAL: The patient appears chronically ill, lethargic, favors the left side. Very weak vital signs as documented. HEAD: No signs of head trauma. EYES: Pupils are equal. Extraocular motions intact. EARS: Hearing grossly intact. MOUTH: Left facial droop NECK: No adenopathy, no JVD. CHEST: Chest with diminished breath sounds bilaterally. No wheezes, rales, or rhonchi. CARDIAC: Regular rate and rhythm. S1 and S2, without murmurs, gallops, or rubs. VASCULAR: No Edema. Peripheral pulses normal and equal in all extremities. ABDOMEN: Soft, non tender and non distended. No rebound or guarding, and no masses palpated. Bowel Sounds normal. MUSCULOSKELETAL: Extremities without clubbing, cyanosis or edema. NEUROLOGIC EXAM: Awake but lethargic and oriented x 3 No focal sensory or strength deficits. Speech labored. Follows some commands but very lethargic unable to move lower extremities . PSYCHIATRIC: Mood unable to access SKIN: detail exam as documented in skin assessment - Constitutional Vitals: Temp Pulse Resp BP Pulse Ox 98.8 F 83 24 123/40 95 09/09/19 07:20 09/09/19 04:44 09/09/19 04:44 09/09/19 04:44 09/09/19 04:44 General appearance: Present: mild distress, well-nourished, other (Lethargic) Results - Labs CBC & Chem 7: 09/09/19 10:30 09/09/19 10:30 Labs: Laboratory Last Values WBC 16.1 K/mm3 (4.5-11.0) H 09/07/19 04:26 RBC 2.06 M/mm3 (3.65-5.03) L 09/07/19 04:26 Hgb 6.7 gm/dl (10.1-14.3) L 09/07/19 04:26 Hct 20.9 % (30.3-42.9) L 09/07/19 04:26 MCV 102 fl (79-97) H 09/07/19 04:26 MCH 33 pg (28-32) H 09/07/19 04:26 MCHC 32 % (30-34) 09/07/19 04:26 RDW 20.3 % (13.2-15.2) H 09/07/19 04:26 Plt Count 241 K/mm3 (140-440) 09/07/19 04:26 Lymph % (Auto) 9.3 % (13.4-35.0) L 09/04/19 07:19 [place] % (Auto) 7.0 % (0.0-7.3) 09/04/19 07:19 Eos % (Auto) 0.5 % (0.0-4.3) 09/04/19 07:19 Baso % (Auto) 0.1 % (0.0-1.8) 09/04/19 07:19 Lymph # 1.2 K/mm3 (1.2-5.4) 09/04/19 07:19 [place] # 0.9 K/mm3 (0.0-0.8) H 09/04/19 07:19 Eos # 0.1 K/mm3 (0.0-0.4) 09/04/19 07:19 Baso # 0.0 K/mm3 (0.0-0.1) 09/04/19 07:19 Seg Neutrophils % 83.1 % (40.0-70.0) H 09/04/19 07:19 Seg Neutrophils # 10.8 K/mm3 (1.8-7.7) H 09/04/19 07:19 PT 14.6 Sec. (12.2-14.9) 08/29/19 10:15 INR 1.12 (0.87-1.13) 08/29/19 10:15 APTT 59.6 Sec. (24.2-36.6) H 08/20/19 23:09 Heparin Anti-Xa Level 0.18 U.I./ml (0.3-0.7) L 08/22/19 15:01 Sodium 139 mmol/L (137-145) 09/07/19 04:26 Potassium 4.1 mmol/L (3.6-5.0) 09/07/19 04:26 Chloride 95.8 mmol/L (98-107) L 09/07/19 04:26 Carbon Dioxide 26 mmol/L (22-30) 09/07/19 04:26 Anion Gap 21 mmol/L 09/07/19 04:26 BUN 69 mg/dL (7-17) H 09/07/19 04:26 Creatinine 4.0 mg/dL (0.7-1.2) H 09/07/19 04:26 Estimated GFR 13 ml/min 09/07/19 04:26 BUN/Creatinine Ratio 17 % 09/07/19 04:26 Glucose 203 mg/dL (65-100) H 09/07/19 04:26 POC Glucose 217 (70-105) H 09/09/19 05:25 Lactic Acid 1.70 mmol/L (0.7-2.0) 08/20/19 23:09 Calcium 8.4 mg/dL (8.4-10.2) 09/07/19 04:26 Magnesium 2.00 mg/dL (1.7-2.3) 08/25/19 07:01 Total Bilirubin 0.20 mg/dL (0.1-1.2) 09/07/19 04:26 Direct Bilirubin < 0.2 mg/dL (0-0.2) 08/31/19 09:47 Indirect Bilirubin 0.1 mg/dL 08/31/19 09:47 AST 37 units/L (5-40) 09/07/19 04:26 ALT 107 units/L (7-56) H 09/07/19 04:26 Alkaline Phosphatase 78 units/L (35-129) 09/07/19 04:26 Ammonia 48.0 umol/L (25-60) 09/05/19 09:07 Total Creatine Kinase 599 units/L (30-135) H 09/06/19 Unknown CK-MB (CK-2) 73.0 ng/mL (0.0-4.0) H 08/21/19 05:35 CK-MB (CK-2) Rel Index 0.3 (0-4) 08/21/19 05:35 Troponin T 0.196 ng/mL (0.00-0.029) H* 08/21/19 05:35 Total Protein 5.2 g/dL (6.3-8.2) L 09/07/19 04:26 Albumin 2.3 g/dL (3.9-5) L 09/07/19 04:26 Albumin/Globulin Ratio 0.8 % 09/07/19 04:26 Triglycerides 125 mg/dL (2-149) 08/20/19 06:11 Cholesterol 89 mg/dL (50-199) 08/20/19 06:11 LDL Cholesterol Direct 45 mg/dL (50-130) L 08/20/19 06:11 HDL Cholesterol 25 mg/dL (40-59) L 08/20/19 06:11 Cholesterol/HDL Ratio 3.56 % 08/20/19 06:11 Urine Color Red (Yellow) 08/20/19 07:38 Urine Turbidity Cloudy (Clear) 08/20/19 07:38 Urine pH 5.0 (5.0-7.0) 08/20/19 07:38 Ur Specific Grubbs 1.013 (1.003-1.030) 08/20/19 07:38 Urine Protein 100 mg/dl mg/dL (Negative) 08/20/19 07:38 Urine Glucose (UA) Neg mg/dL (Negative) 08/20/19 07:38 Urine Ketones Neg mg/dL (Negative) 08/20/19 07:38 Urine Blood Lg (Negative) 08/20/19 07:38 Urine Nitrite Neg (Negative) 08/20/19 07:38 Urine Bilirubin Neg (Negative) 08/20/19 07:38 Urine Urobilinogen < 2.0 mg/dL (<2.0) 08/20/19 07:38 Ur Leukocyte Esterase Sm (Negative) 08/20/19 07:38 Urine WBC (Auto) 25.0 /HPF (0.0-6.0) H 08/20/19 07:38 Urine RBC (Auto) 4.0 /HPF (0.0-6.0) 08/20/19 07:38 U Epithel Cells (Auto) 3.0 /HPF (0-13.0) 08/20/19 07:38 Urine Bacteria (Auto) 1+ /HPF (Negative) 08/20/19 07:38 Amorphous Crystals Few 08/20/19 07:38 Urine Creatinine 102.1 mg/dL (0.1-20.0) H 08/21/19 20:00 Protein/Creatinin Ratio 1.72 08/21/19 20:00 Urine Sodium 44 mmol/L 08/21/19 10:06 Urine Potassium 23.15 mmol/L 08/21/19 10:06 Urine Chloride 22.8 mmolL (110-250) L 08/21/19 10:06 Urine Total Protein 176 mg/dL (5-11.8) H 08/21/19 20:00 Urine Opiates Screen Presumptive positive 08/21/19 20:00 Urine Methadone Screen Presumptive negative 08/21/19 20:00 Acetaminophen < 5.0 ug/mL (10.0-30.0) L 08/22/19 04:34 Ur Barbiturates Screen Presumptive negative 08/21/19 20:00 Ur Phencyclidine Scrn Presumptive negative 08/21/19 20:00 Ur Amphetamines Screen Presumptive negative 08/21/19 20:00 U Benzodiazepines Scrn Presumptive positive 08/21/19 20:00 Urine Cocaine Screen Presumptive negative 08/21/19 20:00 U Marijuana (THC) Screen Presumptive negative 08/21/19 20:00 Drugs of Abuse Note Disclamer 08/21/19 20:00 Proteinase 3 (PR3) Ab <1.0 AI (<1.0) 08/21/19 08:51 Myeloperoxidase Ab <1.0 AI (<1.0) 08/21/19 08:51 Complement C3 136 mg/dL () 08/21/19 08:51 Complement C4 46 mg/dL () 08/21/19 08:51 Hepatitis A IgM Ab Non-reactive (NonReactive) 08/20/19 23:09 Hep Bs Antigen Non-reactive (Negative) 08/26/19 05:49 Hep B Core IgM Ab Non-reactive (NonReactive) 08/20/19 23:09 Hepatitis C Antibody Non-reactive (NonReactive) 08/26/19 05:49 Blood Type A POSITIVE 09/07/19 08:54 Antibody Screen Negative 09/07/19 08:54 Crossmatch See Detail 09/07/19 08:54 - Imaging and Cardiology CT scan - abdomen: pending CT scan - pelvis: pending Active Medications - Current Medications Current Medications: Generic Name Dose Route Start Last Admin Trade Name Freq PRN Reason Stop Dose Admin Alprazolam 0.5 mg 08/20/19 10:00 09/08/19 22:26 Xanax PO 0.5 mg BID SHARON Administration Lipase/Protease/Amylase 1 each 08/23/19 14:[address] 10,500 Unit FEEDTUBE PRN PRN For Clogged Feeding Tube Aspirin 325 mg 08/20/19 10:00 09/08/19 10:18 Ecotrin PO 325 mg QDAY SHARON Administration Carvedilol 3.125 mg 08/20/19 22:00 09/08/19 22:56 Coreg PO Not Given BID [facility] Epoetin Rahul 10,000 unit 08/25/19 09:32 09/06/19 13:31 Procrit IV 10,000 unit DESIRAE PRN Administration hemodialysis Famotidine 20 mg 09/01/19 10:00 09/08/19 10:19 Pepcid PO 20 mg DAILY SHARON Administration Heparin Sodium (Porcine) 5,000 unit 08/25/19 09:32 09/06/19 13:31 Heparin IV 5,000 unit DESIRAE PRN Administration hemodialysis Heparin Sodium (Porcine) 5,000 unit 09/08/19 22:00 09/08/19 22:27 Heparin SUB-Q 5,000 unit Q12HR SHARON Administration Hydralazine HCl 10 mg 08/20/19 09:00 08/26/19 20:15 Apresoline IV 10 mg Q4HR PRN Administration Hypertension Sodium Chloride 100 mls @ 999 mls/hr 09/02/19 09:30 Nacl 0.9% IV DESIRAE PRN Hypotension Cefepime HCl 1 gm in 100 mls @ 200 mls/hr 09/09/19 14:00 Cefepime/Ns 1 Gm/100 Ml IV Q8HR [facility] Protocol Insulin Human Lispro 0 unit 09/06/19 12:00 09/09/19 05:38 Humalog SUB-Q 3 unit Q6HR SHARON Administration Protocol Insulin Human NPH 15 unit 08/31/19 17:00 09/08/19 17:21 Humulin N SUB-Q 15 unit BIDDIAB SHARON Administration Levetiracetam 1,500 mg 08/23/19 22:00 09/08/19 22:27 Keppra FEEDTUBE 1,500 mg BID SHARON Administration Nitroglycerin 0.4 mg 08/20/19 19:00 Nitrostat SL .Q5MIN PRN Chest Pain Oxycodone/Acetaminophen 1 tab 08/21/19 20:37 09/09/19 07:16 Percocet 5/325 PO 1 tab Q6H PRN Administration Pain, Moderate (4-6) Simple Syrup 15 ml 08/23/19 14:47 Simple Syrup FEEDTUBE PRN PRN Hypoglycemia Simple Syrup 30 ml 08/23/19 14:47 Simple Syrup FEEDTUBE PRN PRN Hypoglycemia Sodium Bicarbonate 325 mg 08/23/19 14:47 Sodium Bicarbonate FEEDTUBE PRN PRN For Clogged Feeding Tube Nutrition/Malnutrition Assess - Dietary Evaluation Nutrition/Malnutrition Findings: Nutrition Notes Start: 08/22/19 10:11 Freq: Status: Active Protocol: Document 09/03/19 10:56 LM (Rec: 09/03/19 10:59 LM [email or web address]) Nutrition Notes Initial or Follow up Reassessment Current Diagnosis Acute Kidney Injury,CKD(stage I-IV),Coronary Artery Disease, Diabetes Other Pertinent Diagnosis GERD, hypokalemia, anemia, Current Diet Glucerna 1.2 at 50ml/hr Labs/Tests BUN 74 Cr 3.5 BG 156 Pertinent Medications Humulin Humalog Height 5 ft 5 in Weight 84.5 kg [place] Body Weight (kg) 56.81 BMI 30.9 Weight Status Overweight Subjective/Other Information Glucerna running at 50 ml/hr at time of visit. Pt tolerating TF. Percent of energy/protein needs met: 93%/100% Burn Absent Trauma Absent GI Symptoms None Current % PO Negligible Minimum of two criteria No Reduced Receiver Bulk System Strength Measurably Reduced (severe) #1 Nutrition Diagnosis Inadequate oral intake Diagnosis Progress(for reassessment Continues documentation) Is patient on ventilator? No Is Patient Ambulatory and/or Out of Bed No REE-([facility]-confined to bed) 1550.292 Calculation Used for Recommendations Kcal/kg Additional Notes protein needs: 61 - 77g (0.8 - 1 g/kgBW) (JULIANO w/ no dialysis) fluid needs: 1 ml/kcal Nutrition Intervention Change Diet Order: Continue TF Nutrition Support: Glucerna 1.2 at 50 ml/hr Flush 100 ml q4h Kcal 1,440 Protein (gm) 72 Fluid (mL) 966 Goal #1 Meet at least 80% of energy and protein needs via TF Anticipated Discharge Needs: TF Follow-Up By: 09/10/19 Additional Comments F/U for TF tolerance
[2019-09-09] MEDS: levETIRAcetam 500 MG/5 ML ORAL LIQD FEEDTUBE SCH ×2 (09:17→22:39)
[2019-09-09] MEDS: FAMOTIDINE 20 MG TAB PO SCH (09:18)
[2019-09-09] MEDS: ALPRAZolam 0.5 MG TAB PO SCH ×2 (09:18→22:39)
[2019-09-09] MEDS: ASPIRIN EC 325 MG TAB PO SCH (09:18)
[2019-09-09 09:20] LABS: Calcium 8.6 mg/dL (8.4-10.2)
[2019-09-09] MEDS: INSULIN NPH, HUMAN 100 UNIT/1 ML SUB-Q SCH ×2 (09:36→17:29)
[2019-09-09] MEDS: carvediloL 3.125 MG TAB PO SCH ×2 (10:00→22:37)
[2019-09-09] MEDS: HEPARIN 5,000 UNIT/1 ML VIAL SUB-Q SCH ×2 (10:22→22:39)
[2019-09-09 10:44] LABS: Basophils % (Auto) 0.2 % (0.0-1.8); Eosinophils % (Auto) 0.1 % (0.0-4.3); Hematocrit 20.4 % (30.3-42.9); Hemoglobin 6.7 gm/dl (10.1-14.3); Lymphocytes # (Auto) 1.1 K/mm3 (1.2-5.4); Lymphocytes % (Auto) 6.5 % (13.4-35.0); Mean Corpuscular HGB Conc 33 % (30-34); Mean Corpuscular Volume 97 fl (79-97); Monocytes # (Auto) 1.6 K/mm3 (0.0-0.8); Monocytes % (Auto) 9.5 % (0.0-7.3); Platelet Count 230 K/mm3 (140-440); Red Blood Count 2.12 M/mm3 (3.65-5.03)
[2019-09-09] MEDS ORDERED: SODIUM CHLORIDE*PRIMING MACHINE ONLY FOR DIALYSIS MC ONE (10:53)
[2019-09-09 10:58] LABS: Red Cell Distribution Width 21.5 % (13.2-15.2)
[2019-09-09 11:05] LABS: Albumin 1.9 g/dL (3.9-5); Calcium 8.3 mg/dL (8.4-10.2)
--- NOTE | 2019-09-09 12:05 | Progress Note ---
Assessment and Plan - Patient Problems (1) Acute renal failure Current Visit: Yes Status: Acute Plan to address problem: Acute tubular necrosis secondary to rhabdomyolysis. no significant renal recovery seen. Cont temporary HD on TTS schedule, outpatient arrangement as per case management. (2) Acute renal failure due to rhabdomyolysis Current Visit: Yes Status: Acute Plan to address problem: Probably statin induced. Statin has been stopped. CPK is improving. (3) Hypertensive chronic kidney disease with stage 1 through stage 4 chronic kidney disease, or unspecified chronic kidney disease Current Visit: Yes Status: Acute Plan to address problem: monitor BP on current meds (4) Type 2 diabetes mellitus with diabetic chronic kidney disease Current Visit: Yes Status: Chronic Plan to address problem: DM management per primary attending. (5) Metabolic acidosis Current Visit: Yes Status: Acute Plan to address problem: improved with HD (6) Encephalopathy acute Current Visit: Yes Status: Acute Plan to address problem: improved (7) Transaminasemia Current Visit: Yes Status: Acute Subjective Date of service: 09/09/19 Principal diagnosis: PEG tube placement Interval history: Pt awake, alert, in no acute respiratory distress. Objective - Vital Signs Vital signs: Vital Signs - 12hr 09/09/19 09/09/19 09/09/19 04:00 04:44 05:42 Temperature 101.5 F H 102.4 F H 102.5 F H Pulse Rate 83 Respiratory 24 Rate Blood Pressure 123/40 O2 Sat by Pulse 95 Oximetry 09/09/19 07:20 Temperature 98.8 F Pulse Rate Respiratory Rate Blood Pressure O2 Sat by Pulse Oximetry - General Appearance General appearance: well-developed, well-nourished, appears stated age EENT: ATNC, PERRL, mucous membranes moist Neck: no JVD Respiratory: Present: Clear to Ascultation Cardiology: regular, S1S2 Gastrointestinal: normoactive bowel sounds Integumentary: no rash, other (no edema ) Neurologic: no focal deficit, alert and oriented x3, strength 5/5, CN 3-12 intact Psychiatric: mood/affect appropriate, cooperative - Lab 09/09/19 10:30 09/09/19 10:30 Most recent lab results Calcium 8.3 mg/dL (8.4-10.2) L 09/09/19 10:30 Magnesium 2.00 mg/dL (1.7-2.3) 08/25/19 07:01 Urine Creatinine 102.1 mg/dL (0.1-20.0) H 08/21/19 20:00 Urine Sodium 44 mmol/L 08/21/19 10:06 Urine Total Protein 176 mg/dL (5-11.8) H 08/21/19 20:00 Medications & Allergies - Medications Allergies/Adverse Reactions: Allergies No Known Allergies Allergy (Verified 11/29/13 10:39) Home Medications: Home Medications Medication Instructions Recorded Confirmed Last Taken Type ALPRAZolam [Xanax TAB] 0.5 mg PO BID 03/21/13 08/20/19 01/29/14 History Amlodipine Bes/Olmesartan Med 2.5 mg PO QDAY 03/21/13 08/20/19 1 Day Ago History [Shekhar 10-20 mg] ~08/19/19 Glimepiride [Amaryl] 2 mg PO QAM 03/21/13 08/20/19 1 Day Ago History ~08/19/19 2 mg Losartan [Cozaar] 25 mg PO QDAY 03/21/13 08/20/19 1 Day Ago History ~08/19/19 25 mg Atorvastatin [Lipitor] 40 mg PO QHS 11/13/13 08/20/19 01/29/14 History Oxycodone HCl/Acetaminophen 1 each PO Q6HR PRN #20 tablet 11/29/13 08/20/19 01/30/14 Rx [Percocet 7.5/325 mg] Aspirin EC [Ecotrin] 325 mg PO QDAY #30 tablet 02/08/14 08/20/19 Unknown Rx Clopidogrel [Plavix] 75 mg PO QDAY #30 tablet 02/08/14 08/20/19 Unknown Rx Pantoprazole [Protonix TAB] 40 mg PO QDAY #30 tablet 02/08/14 08/20/19 1 Day Ago Rx ~08/19/19 40 mg carvediloL [Coreg] 3.125 mg PO BID #60 tablet 02/08/14 08/20/19 Unknown Rx levETIRAcetam [Keppra TAB] 1,500 mg PO BID 08/20/19 08/20/19 Unknown History Citalopram [celeXA] 40 mg PO QDAY 08/22/19 08/22/19 Unknown History Active Medications: Generic Name Dose Route Start Last Admin Trade Name Freq PRN Reason Stop Dose Admin Alprazolam 0.5 mg 08/20/19 10:00 09/09/19 09:18 Xanax PO 0.5 mg BID SHARON Administration Lipase/Protease/Amylase 1 each 08/23/19 14:47 Pancreaze 10,500 Unit FEEDTUBE PRN PRN For Clogged Feeding Tube Aspirin 325 mg 08/20/19 10:00 09/09/19 09:18 Ecotrin PO 325 mg QDAY SHARON Administration Carvedilol 3.125 mg 08/20/19 22:00 09/08/19 22:56 Coreg PO Not Given BID SHARON Epoetin Rahul 10,000 unit 08/25/19 09:32 09/06/19 13:31 Procrit IV 10,000 unit DESIRAE PRN Administration hemodialysis Famotidine 20 mg 09/01/19 10:00 09/09/19 09:18 Pepcid PO 20 mg DAILY SHARON Administration Heparin Sodium (Porcine) 5,000 unit 08/25/19 09:32 09/06/19 13:31 Heparin IV 5,000 unit DESIRAE PRN Administration hemodialysis Heparin Sodium (Porcine) 5,000 unit 09/08/19 22:00 09/09/19 10:22 Heparin SUB-Q Not Given Q12HR [facility] Hydralazine HCl 10 mg 08/20/19 09:00 08/26/19 20:15 Apresoline IV 10 mg Q4HR PRN Administration Hypertension Sodium Chloride 100 mls @ 999 mls/hr 09/02/19 09:30 Nacl 0.9% IV DESIRAE PRN Hypotension Cefepime HCl 1 gm in 100 mls @ 200 mls/hr 09/09/19 10:00 Cefepime/Ns 1 Gm/100 Ml IV Q24HR [facility] Protocol Insulin Human Lispro 0 unit 09/06/19 12:00 09/09/19 05:38 Humalog SUB-Q 3 unit Q6HR SHARON Administration Protocol Insulin Human NPH 15 unit 08/31/19 17:00 09/09/19 09:36 Humulin N SUB-Q 15 unit BIDDIAB SHARON Administration Levetiracetam 1,500 mg 08/23/19 22:00 09/09/19 09:17 Keppra FEEDTUBE 1,500 mg BID SHARON Administration Nitroglycerin 0.4 mg 08/20/19 19:00 Nitrostat SL .Q5MIN PRN Chest Pain Oxycodone/Acetaminophen 1 tab 08/21/19 20:37 09/09/19 07:16 Percocet 5/325 PO 1 tab Q6H PRN Administration Pain, Moderate (4-6) Simple Syrup 15 ml 08/23/19 14:47 Simple Syrup FEEDTUBE PRN PRN Hypoglycemia Simple Syrup 30 ml 08/23/19 14:47 Simple Syrup FEEDTUBE PRN PRN Hypoglycemia Sodium Bicarbonate 325 mg 08/23/19 14:47 Sodium Bicarbonate FEEDTUBE PRN PRN For Clogged Feeding Tube
[2019-09-09] MEDS: EPOETIN ALFA 10,000 UNIT/1 ML INJ IV PRN (13:30)
--- NOTE | 2019-09-09 15:16 | Consultation ---
History of Present Illness - Reason for Consult Consult date: 09/09/19 High fevers Requesting physician: ALEJA VILLASEÑOR - History of Present Illness The patient is an 84-year-old female with hypertension, diabetes mellitus, coronary artery disease, indwelling AICD was admitted to the hospital on 08/20/2019 with generalized weakness. Upon evaluation, she was found to have no leukocytosis or fever. Labs showed acute renal failure along with transaminase elevation along with CK of 20K. On 08/25/2019, patient underwent right IJ PermCath insertion and was started on dialysis by nephrology. She started spiking low-grade fevers on 09/05/2019 onwards and since yesterday and today, T-max has been 102.5 F. Patient is encephalopathic, unable to provide any history. History obtained by chart review and discussing with bedside RN. Blood cultures were ordered today. Patient tolerated dialysis well today. Review of Systems: unable to obtain due to AMS, encephalopathy. Past History Past Medical History: CAD (Status post PCI in 2013), diabetes, hypertension, hyperlipidemia, seizures Past Surgical History: Other (ICD placement) Social history: lives with family. denies: smoking, alcohol abuse, IV drug use Family history: hypertension Medications and Allergies Allergies Allergy/AdvReac Type Severity Reaction Status Date / Time No Known Allergies Allergy Verified 11/29/13 10:39 Home Medications Medication Instructions Recorded Confirmed Last Taken Type ALPRAZolam [Xanax TAB] 0.5 mg PO BID 03/21/13 08/20/19 01/29/14 History Amlodipine Bes/Olmesartan Med 2.5 mg PO QDAY 03/21/13 08/20/19 1 Day Ago History [Shekhar 10-20 mg] ~08/19/19 Glimepiride [Amaryl] 2 mg PO QAM 03/21/13 08/20/19 1 Day Ago History ~08/19/19 2 mg Losartan [Cozaar] 25 mg PO QDAY 03/21/13 08/20/19 1 Day Ago History ~08/19/19 25 mg Atorvastatin [Lipitor] 40 mg PO QHS 11/13/13 08/20/19 01/29/14 History Oxycodone HCl/Acetaminophen 1 each PO Q6HR PRN #20 tablet 11/29/13 08/20/19 01/30/14 Rx [Percocet 7.5/325 mg] Aspirin EC [Ecotrin] 325 mg PO QDAY #30 tablet 02/08/14 08/20/19 Unknown Rx Clopidogrel [Plavix] 75 mg PO QDAY #30 tablet 02/08/14 08/20/19 Unknown Rx Pantoprazole [Protonix TAB] 40 mg PO QDAY #30 tablet 02/08/14 08/20/19 1 Day Ago Rx ~08/19/19 40 mg carvediloL [Coreg] 3.125 mg PO BID #60 tablet 02/08/14 08/20/19 Unknown Rx levETIRAcetam [Keppra TAB] 1,500 mg PO BID 08/20/19 08/20/19 Unknown History Citalopram [celeXA] 40 mg PO QDAY 08/22/19 08/22/19 Unknown History Active Meds: Active Medications Alprazolam (Xanax) 0.[address] [facility] Last Admin: 09/09/19 09:18 Dose: 0.5 mg Documented by: Lipase/Protease/Amylase (Dimitrios Krause 10,500 Unit) 1 each FEEDTUBE PRN PRN PRN Reason: For Clogged Feeding Tube Aspirin (Ecotrin) [address] [facility] Last Admin: 09/09/19 09:18 Dose: 325 mg Documented by: Carvedilol (Coreg) 3.[address] [facility] Last Admin: 09/08/19 22:56 Dose: Not Given Documented by: Epoetin Rahul (Procrit) 10,000 unit IV DESIRAE PRN PRN Reason: hemodialysis Last Admin: 09/06/19 13:31 Dose: 10,000 unit Documented by: Famotidine (Pepcid) [address] [facility] Last Admin: 09/09/19 09:18 Dose: 20 mg Documented by: Heparin Sodium (Porcine) (Heparin) 5,000 unit IV DESIRAE PRN PRN Reason: hemodialysis Last Admin: 09/06/19 13:31 Dose: 5,000 unit Documented by: Heparin Sodium (Porcine) (Heparin) 5,000 unit SUB-Q Q12HR [facility] Last Admin: 09/09/19 10:22 Dose: Not Given Documented by: Hydralazine HCl (Apresoline) 10 mg IV Q4HR PRN PRN Reason: Hypertension Last Admin: 08/26/19 20:15 Dose: 10 mg Documented by: Sodium Chloride (Nacl 0.9%) 100 mls @ 999 mls/hr IV DESIRAE PRN PRN Reason: Hypotension Cefepime HCl (Cefepime/Ns 1 Gm/100 Ml) 1 gm in 100 mls @ 200 mls/hr IV Q24HR SHARON; Protocol Sodium Chloride (Nacl 0.9% 500 Ml) 500 mls @ 0 mls/hr IV ONCE NR Stop: 09/10/19 13:07 Insulin Human Lispro (Humalog) 0 unit SUB-Q Q6HR SHARON; Protocol Last Admin: 09/09/19 05:38 Dose: 3 unit Documented by: Insulin Human NPH (Humulin N) 15 unit SUB-Q BIDDIAB [facility] Last Admin: 09/09/19 09:36 Dose: 15 unit Documented by: Levetiracetam (Keppra) 1,500 mg FEEDTUBE BID SHARON Last Admin: 09/09/19 09:17 Dose: 1,500 mg Documented by: Nitroglycerin (Nitrostat) 0.4 mg SL .Q5MIN PRN PRN Reason: Chest Pain Oxycodone/Acetaminophen (Percocet 5/325) 1 tab PO Q6H PRN PRN Reason: Pain, Moderate (4-6) Last Admin: 09/09/19 07:16 Dose: 1 tab Documented by: Simple Syrup (Simple Syrup) 15 ml FEEDTUBE PRN PRN PRN Reason: Hypoglycemia Simple Syrup (Simple Syrup) 30 ml FEEDTUBE PRN PRN PRN Reason: Hypoglycemia Sodium Bicarbonate (Sodium Bicarbonate) 325 mg FEEDTUBE PRN PRN PRN Reason: For Clogged Feeding Tube Physical Examination - Physical Exam Narrative exam: Physical Exam: Constitutional: Comatose, non verbal Head, Ears, Nose: Normocephalic, atraumatic. External ears, nose normal Eyes: Conjunctivae/corneas clear. No icterus. No ptosis. Neck: Supple, no meningeal signs Oral: unable to examine Cardiovascular: S1, S2 normal. Respiratory: b/l upper airway transmitted sounds GI: Soft, bowel sounds normal. No peritoneal signs Musculoskeletal: No pedal edema, no cyanosis. Skin: No rash or abscess Hem/Lymphatic: No palpable cervical or supraclavicular nodes. No lymphangitis Psych: no agitation Neurological: comatose, non verbal, does not follow any commands - Constitutional Vitals: Vital Signs Temp Pulse Resp BP Pulse Ox 97.2 F L 76 25 H 111/40 98 09/09/19 10:15 09/09/19 12:00 09/09/19 10:15 09/09/19 12:00 09/09/19 10:15 Temperature -Last 24 Hours Temperature 97.2 F Temperature 98.8 F Temperature 102.5 F Temperature 102.4 F Temperature 101.5 F Temperature 99.8 F Temperature 99.8 F Results - Labs CBC & Chem 7: 09/09/19 10:30 09/09/19 10:30 Labs: Abnormal lab results 09/07/19 09/08/19 09/08/19 Range/Units 08:54 16:47 18:42 WBC (4.5-11.0) K/mm3 RBC (3.65-5.03) M/mm3 Hgb (10.1-14.3) gm/dl Hct (30.3-42.9) % RDW (13.2-15.2) % Lymph % (Auto) (13.4-35.0) % [place] % (Auto) (0.0-7.3) % Lymph # (1.2-5.4) K/mm3 [place] # (0.0-0.8) K/mm3 Seg Neutrophils % (40.0-70.0) % Seg Neutrophils # (1.8-7.7) K/mm3 Chloride (98-107) mmol/L Carbon Dioxide (22-30) mmol/L BUN (7-17) mg/dL Creatinine (0.7-1.2) mg/dL Glucose (65-100) mg/dL POC Glucose 190 H 286 H (70-105) Calcium (8.4-10.2) mg/dL ALT (7-56) units/L Total Protein (6.3-8.2) g/dL Albumin (3.9-5) g/dL Crossmatch See Detail 09/08/19 09/09/19 09/09/19 Range/Units 23:29 05:25 08:09 WBC (4.5-11.0) K/mm3 RBC (3.65-5.03) M/mm3 Hgb (10.1-14.3) gm/dl Hct (30.3-42.9) % RDW (13.2-15.2) % Lymph % (Auto) (13.4-35.0) % [place] % (Auto) (0.0-7.3) % Lymph # (1.2-5.4) K/mm3 [place] # (0.0-0.8) K/mm3 Seg Neutrophils % (40.0-70.0) % Seg Neutrophils # (1.8-7.7) K/mm3 Chloride 97.5 L (98-107) mmol/L Carbon Dioxide 20 L (22-30) mmol/L BUN 111 H (7-17) mg/dL Creatinine 5.3 H (0.7-1.2) mg/dL Glucose 186 H (65-100) mg/dL POC Glucose 224 H 217 H (70-105) Calcium (8.4-10.2) mg/dL ALT (7-56) units/L Total Protein (6.3-8.2) g/dL Albumin (3.9-5) g/dL Crossmatch 09/09/19 09/09/19 Range/Units 10:30 10:30 WBC 17.2 H (4.5-11.0) K/mm3 RBC 2.12 L (3.65-5.03) M/mm3 Hgb 6.7 L (10.1-14.3) gm/dl Hct 20.4 L (30.3-42.9) % RDW 21.5 H (13.2-15.2) % Lymph % (Auto) 6.5 L (13.4-35.0) % [place] % (Auto) 9.5 H (0.0-7.3) % Lymph # 1.1 L (1.2-5.4) K/mm3 [place] # 1.6 H (0.0-0.8) K/mm3 Seg Neutrophils % 83.7 H (40.0-70.0) % Seg Neutrophils # 14.4 H (1.8-7.7) K/mm3 Chloride 95.2 L (98-107) mmol/L Carbon Dioxide 21 L (22-30) mmol/L BUN 110 H (7-17) mg/dL Creatinine 5.8 H (0.7-1.2) mg/dL Glucose 211 H (65-100) mg/dL POC Glucose (70-105) Calcium 8.3 L (8.4-10.2) mg/dL ALT 64 H (7-56) units/L Total Protein 5.3 L (6.3-8.2) g/dL Albumin 1.9 L (3.9-5) g/dL Crossmatch - Imaging and Cardiology Chest x-ray: report reviewed, image reviewed (Chest x-ray shows elevated right diaphragm, does not show any obvious pneumonia.) Assessment and Plan Cultures: 08/20/2019 blood culture: No growth 08/20/2019 urine culture: No growth A/P: 84-year-old female with hypertension, diabetes mellitus, coronary artery disease, indwelling AICD was admitted to the hospital on 08/20/2019 with generalized weakness. Upon evaluation, she was found to have no leukocytosis or fever. Labs showed acute renal failure along with transaminase elevation along with CK of 20K. On 08/25/2019, patient underwent right IJ PermCath insertion and was started on dialysis by nephrology, now with: #Persistent high fevers: Not present on admission. Going on for the last 2 to 3 days. Patient x-ray does not show any obvious pneumonia. Rule out bacteremia. #Acute encephalopathy: Multifactorial #Acute renal failure: Now requiring dialysis. Renally dose antibiotics. #Elevated LFTs: Likely related to rhabdomyolysis: Trending down. Recs: Agree with blood cultures Follow-up CT results Empiric IV cefepime and vancomycin ordered, renally adjusted d/w Dr. Villaseñor. Magda Ybarra MD, FACP [facility] ([facility] C: [phone] O: [phone] F: [phone]
[2019-09-09] MEDS ORDERED: VANCOMYCIN 1,250 MG in SODIUM CHLORIDE 0.9% 500 ML 500 ML IV ONE (15:34)
[2019-09-09] MEDS ORDERED: VANCOMYCIN PHARMACY TO DOSE IV SCH (16:00)
[2019-09-09] MEDS ORDERED: VANCOMYCIN 1,750 MG in SODIUM CHLORIDE 0.9% 500 ML 500 ML IV ONE (17:00)
[2019-09-09] MEDS: CEFEPIME/NS 1 GM/100 ML 1 GM/100 ML BAG IV SCH (17:28)
--- NOTE | 2019-09-09 17:36 | Cat Scan Report ---
CT ABDOMEN AND PELVIS WITHOUT CONTRAST INDICATION: Colitis. COMPARISON: CT abdomen and pelvis without contrast from 08/20/2019. TECHNIQUE: Axial, coronal and sagittal CT imaging of the abdomen and pelvis was performed without IV contrast. Water soluble oral contrast was administered. All CT scans at this location are performed using CT dose reduction for ALARA by means of automated exposure control. FINDINGS: LOWER CHEST: Dense bibasilar consolidations may represent atelectasis or pneumonia. No additional sig nificant abnormality. LIVER: No significant abnormality. BILIARY: No significant abnormality. PANCREAS: No significant abnormality. SPLEEN: No significant abnormality. ADRENALS: No significant abnormality. KIDNEYS AND URETERS: The previously described possible bilateral renal cysts are unchanged. No additi onal significant abnormality. GI TRACT: An esophagogastric tube terminates over the first portion of the duodenum. No significant a bnormality of the stomach or small bowel. The colon contains a large amount of stool. Thickening of t he rectum is likely due to underdistention. Proctitis cannot be entirely excluded given the presence of mild rectal inflammation. No additional significant abnormality of the colon. The appendix is not seen. PERITONEUM: No free fluid. No free air. No fluid collection. LYMPH NODES: No significant adenopathy. VASCULATURE: The aorta is normal in caliber with moderate generalized atherosclerosis. URINARY BLADDER: No significant abnormality. REPRODUCTIVE ORGANS: Prior hysterectomy. No significant abnormality. ADDITIONAL FINDINGS: Anasarca has developed in the interval. SKELETAL SYSTEM: No acute abnormality. Degenerative changes are seen throughout the spine and pelvis. IMPRESSION: 1. Underdistention of the rectum versus proctitis. No additional CT evidence of colitis. 2. Bilateral lower lobe atelectasis versus pneumonia. 3. Additional findings as above. Signer Name: Tre Meyer MD Signed: 09/09/2019 5:32 PM Workstation Name: [id number]
[2019-09-09] MEDS ORDERED: SODIUM CHLORIDE 0.9% 1000 ML 500 ML IV ONE (20:49)
[2019-09-09] MEDS: ACETAMINOPHEN 325 MG TAB PO PRN (20:55)
[2019-09-09] MEDS: SODIUM CHLORIDE 0.9% 500 ML 500 ML IV NR (20:56)
[2019-09-10] MEDS: INSULIN LISPRO 100 UNIT/ML SUB-Q SCH ×4 (01:01→17:26)
[2019-09-10] MEDS ORDERED: ACETAMINOPHEN 500 MG TAB PO ONE (02:24)
[2019-09-10] MEDS ORDERED: diphenhydrAMINE 50 MG/ML VIAL IV ONE (04:07)
--- NOTE | 2019-09-10 04:17 | Event Note ---
Date: 09/10/19 Phone call received from RN that patient had persistent temp throughout the night, PRN Tylenol and bolus ordered and patient placed on a cooling blanket orders given to premedicate and start ordered unit of PRBC. Blood cultures done within 24 hours, vitamin C, steroids, and thiamine added.
[2019-09-10] MEDS: SODIUM CHLORIDE 0.9% 500 ML 500 ML IV NR (04:54)
[2019-09-10] MEDS ORDERED: ASCORBIC ACID IV SCH (06:00)
[2019-09-10] MEDS ORDERED: SODIUM CHLORIDE 0.9% IV SCH (06:00)
[2019-09-10] MEDS ORDERED: HYDROCORTISONE SOD SUCC 100 MG/2 ML VIAL IV SCH (06:00)
[2019-09-10] MEDS: carvediloL 3.125 MG TAB PO SCH ×2 (10:00→23:01)
[2019-09-10] MEDS ORDERED: THIAMINE 500 MG in SODIUM CHLORIDE 0.9% 50 ML IV SCH (10:00)
--- NOTE | 2019-09-10 10:29 | Progress Note ---
Assessment and Plan Cultures: 08/20/2019 blood culture: No growth 08/20/2019 urine culture: No growth 09/09/2019 blood culture: no growth A/P: 84-year-old female with hypertension, diabetes mellitus, coronary artery disease, indwelling AICD was admitted to the hospital on 08/20/2019 with generalized weakness. Upon evaluation, she was found to have no leukocytosis or fever. Labs showed acute renal failure along with transaminase elevation along with CK of 20K. On 08/25/2019, patient underwent right IJ PermCath insertion and was started on dialysis by nephrology, now with: #Persistent high fevers: Not present on admission. Going on for the last 2 to 3 days. Patient x-ray does not show any obvious pneumonia. Rule out bacteremia. CT with b/l pleural effusions, no intra-abdominal process. #Acute encephalopathy: Multifactorial #Acute renal failure: Now requiring dialysis. Renally dose antibiotics. #Elevated LFTs: Likely related to rhabdomyolysis: Trending down. Recs: Continue empiric IV cefepime and vancomycin ordered, renally adjusted. Day 2 avoid steroids since they can mask the fever if fevers persist and depending on goals of care, would need to eval for DVTs and possible central process d/w Dr. Villaseñor. Magda Ybarra MD, FACP [facility], [place] ([facility] C: [phone] O: [phone] F: [phone] Subjective Date of service: 09/10/19 Principal diagnosis: PEG tube placement Interval history: Febrile overnight. Remains drowsy. On tube feeds. Objective - Exam Narrative Exam: Physical Exam: Constitutional: Comatose, non verbal Head, Ears, Nose: Normocephalic, atraumatic. External ears, nose normal Eyes: Conjunctivae/corneas clear. No icterus. No ptosis. Neck: Supple, no meningeal signs Oral: unable to examine Cardiovascular: S1, S2 normal. Respiratory: b/l upper airway transmitted sounds GI: Soft, bowel sounds normal. No peritoneal signs Musculoskeletal: No pedal edema, no cyanosis. Skin: No rash or abscess Hem/Lymphatic: No palpable cervical or supraclavicular nodes. No lymphangitis Psych: no agitation Neurological: comatose, non verbal, does not follow any commands - Constitutional Vitals: Vital Signs Temp Pulse Resp BP Pulse Ox 99.2 F 73 20 116/47 97 09/10/19 08:30 09/10/19 08:30 09/10/19 08:30 09/10/19 08:30 09/10/19 08:30 Temperature -Last 24 Hours Temperature 99.2 F Temperature 98.0 F Temperature 99.1 F Temperature 99.9 F Temperature 99.5 F Temperature 99.2 F Temperature 99 F Temperature 100 F Temperature 101 F Temperature 99.7 F Temperature 100.9 F Temperature 101.0 F Temperature 102.7 F Temperature 102.7 F Temperature 97.2 F Temperature 98.2 F - Labs CBC & Chem 7: 09/09/19 10:30 09/09/19 10:30 Labs: Abnormal lab results 09/07/19 09/09/19 09/09/19 Range/Units 08:54 10:30 10:30 WBC 17.2 H (4.5-11.0) K/mm3 RBC 2.12 L (3.65-5.03) M/mm3 Hgb 6.7 L (10.1-14.3) gm/dl Hct 20.4 L (30.3-42.9) % RDW 21.5 H (13.2-15.2) % Lymph % (Auto) 6.5 L (13.4-35.0) % [place] % (Auto) 9.5 H (0.0-7.3) % Lymph # 1.1 L (1.2-5.4) K/mm3 [place] # 1.6 H (0.0-0.8) K/mm3 Seg Neutrophils % 83.7 H (40.0-70.0) % Seg Neutrophils # 14.4 H (1.8-7.7) K/mm3 Chloride 95.2 L (98-107) mmol/L Carbon Dioxide 21 L (22-30) mmol/L BUN 110 H (7-17) mg/dL Creatinine 5.8 H (0.7-1.2) mg/dL Glucose 211 H (65-100) mg/dL POC Glucose (70-105) Calcium 8.3 L (8.4-10.2) mg/dL ALT 64 H (7-56) units/L Total Protein 5.3 L (6.3-8.2) g/dL Albumin 1.9 L (3.9-5) g/dL Crossmatch See Detail 09/09/19 09/09/19 09/10/19 Range/Units 16:45 22:10 06:22 WBC (4.5-11.0) K/mm3 RBC (3.65-5.03) M/mm3 Hgb (10.1-14.3) gm/dl Hct (30.3-42.9) % RDW (13.2-15.2) % Lymph % (Auto) (13.4-35.0) % [place] % (Auto) (0.0-7.3) % Lymph # (1.2-5.4) K/mm3 [place] # (0.0-0.8) K/mm3 Seg Neutrophils % (40.0-70.0) % Seg Neutrophils # (1.8-7.7) K/mm3 Chloride (98-107) mmol/L Carbon Dioxide (22-30) mmol/L BUN (7-17) mg/dL Creatinine (0.7-1.2) mg/dL Glucose (65-100) mg/dL POC Glucose 232 H 252 H 255 H (70-105) Calcium (8.4-10.2) mg/dL ALT (7-56) units/L Total Protein (6.3-8.2) g/dL Albumin (3.9-5) g/dL Crossmatch - Imaging and cardiology CT scan - abdomen: report reviewed, image reviewed (b/l pleural effusions, no air bronchograms seen. No intra-abdominal pathology identified.)
[2019-09-10] MEDS: levETIRAcetam 500 MG/5 ML ORAL LIQD FEEDTUBE SCH ×2 (10:30→22:55)
[2019-09-10] MEDS: CEFEPIME/NS 1 GM/100 ML 1 GM/100 ML BAG IV SCH (10:30)
[2019-09-10] MEDS: HEPARIN 5,000 UNIT/1 ML VIAL SUB-Q SCH ×2 (10:31→22:44)
[2019-09-10] MEDS: ASPIRIN EC 325 MG TAB PO SCH (10:31)
[2019-09-10] MEDS: FAMOTIDINE 20 MG TAB PO SCH (10:31)
[2019-09-10] MEDS: ALPRAZolam 0.5 MG TAB PO SCH ×2 (10:31→22:46)
[2019-09-10] MEDS: INSULIN NPH, HUMAN 100 UNIT/1 ML SUB-Q SCH (10:37)
--- NOTE | 2019-09-10 11:01 | Progress Note ---
Assessment and Plan - Patient Problems (1) Acute renal failure Current Visit: Yes Status: Acute Plan to address problem: Acute tubular necrosis secondary to rhabdomyolysis. no significant renal recovery seen. Cont temporary HD on TTS schedule, outpatient arrangement as per case management. Awaiting PEG placement (2) Acute renal failure due to rhabdomyolysis Current Visit: Yes Status: Acute Plan to address problem: Probably statin induced. Statin has been stopped. CPK is improving. (3) Hypertensive chronic kidney disease with stage 1 through stage 4 chronic kidney disease, or unspecified chronic kidney disease Current Visit: Yes Status: Acute Plan to address problem: monitor BP on current meds (4) Type 2 diabetes mellitus with diabetic chronic kidney disease Current Visit: Yes Status: Chronic Plan to address problem: DM management per primary attending. (5) Metabolic acidosis Current Visit: Yes Status: Acute Plan to address problem: improved with HD (6) Transaminasemia Current Visit: Yes Status: Acute Plan to address problem: Liver function improving. Follow-up liver function test off of statin Subjective Date of service: 09/10/19 Principal diagnosis: PEG tube placement Interval history: Pt awake, alert, in no acute respiratory distress. Objective - Vital Signs Vital signs: Vital Signs - 12hr 09/10/19 09/10/19 09/10/19 00:34 02:08 03:55 Temperature 101.0 F H 99.7 F H 101 F H Pulse Rate 81 Respiratory 16 Rate Blood Pressure 91/32 O2 Sat by Pulse 96 Oximetry 09/10/19 09/10/19 09/10/19 03:56 05:30 06:00 Temperature 100 F H 99.2 F 99.5 F Pulse Rate 74 74 Respiratory 20 22 Rate Blood Pressure 109/45 114/41 O2 Sat by Pulse 96 95 Oximetry 09/10/19 09/10/19 09/10/19 07:00 07:30 08:00 Temperature 99.9 F H 99.1 F 98.0 F Pulse Rate 74 74 73 Respiratory 22 20 20 Rate Blood Pressure 119/47 115/48 116/48 O2 Sat by Pulse 95 96 Oximetry 09/10/19 08:30 Temperature 99.2 F Pulse Rate 73 Respiratory 20 Rate Blood Pressure 116/47 O2 Sat by Pulse 97 Oximetry - General Appearance General appearance: well-developed, appears stated age, chronically ill EENT: ATNC, PERRL, mucous membranes moist Neck: no JVD Respiratory: Present: Clear to Ascultation Cardiology: regular, S1S2 Gastrointestinal: normoactive bowel sounds Integumentary: no rash, other (+ edema b/l LE ) Neurologic: no focal deficit, alert and oriented x3, CN 3-12 intact Psychiatric: mood/affect appropriate, cooperative - Lab 09/09/19 10:30 09/09/19 10:30 Most recent lab results Calcium 8.3 mg/dL (8.4-10.2) L 09/09/19 10:30 Magnesium 2.00 mg/dL (1.7-2.3) 08/25/19 07:01 Urine Creatinine 102.1 mg/dL (0.1-20.0) H 08/21/19 20:00 Urine Sodium 44 mmol/L 08/21/19 10:06 Urine Total Protein 176 mg/dL (5-11.8) H 08/21/19 20:00 Medications & Allergies - Medications Allergies/Adverse Reactions: Allergies No Known Allergies Allergy (Verified 11/29/13 10:39) Home Medications: Home Medications Medication Instructions Recorded Confirmed Last Taken Type ALPRAZolam [Xanax TAB] 0.5 mg PO BID 03/21/13 08/20/19 01/29/14 History Amlodipine Bes/Olmesartan Med 2.5 mg PO QDAY 03/21/13 08/20/19 1 Day Ago History [Shekhar 10-20 mg] ~08/19/19 Glimepiride [Amaryl] 2 mg PO QAM 03/21/13 08/20/19 1 Day Ago History ~08/19/19 2 mg Losartan [Cozaar] 25 mg PO QDAY 03/21/13 08/20/19 1 Day Ago History ~08/19/19 25 mg Atorvastatin [Lipitor] 40 mg PO QHS 11/13/13 08/20/19 01/29/14 History Oxycodone HCl/Acetaminophen 1 each PO Q6HR PRN #20 tablet 11/29/13 08/20/19 01/30/14 Rx [Percocet 7.5/325 mg] Aspirin EC [Ecotrin] 325 mg PO QDAY #30 tablet 02/08/14 08/20/19 Unknown Rx Clopidogrel [Plavix] 75 mg PO QDAY #30 tablet 02/08/14 08/20/19 Unknown Rx Pantoprazole [Protonix TAB] 40 mg PO QDAY #30 tablet 02/08/14 08/20/19 1 Day Ago Rx ~08/19/19 40 mg carvediloL [Coreg] 3.125 mg PO BID #60 tablet 02/08/14 08/20/19 Unknown Rx levETIRAcetam [Keppra TAB] 1,500 mg PO BID 08/20/19 08/20/19 Unknown History Citalopram [celeXA] 40 mg PO QDAY 08/22/19 08/22/19 Unknown History Active Medications: Generic Name Dose Route Start Last Admin Trade Name Freq PRN Reason Stop Dose Admin Acetaminophen 650 mg 09/09/19 20:46 09/09/19 20:55 Tylenol PO 650 mg Q6H PRN Administration Pain, Mild (1-3) Alprazolam 0.5 mg 08/20/19 10:00 09/10/19 10:31 Xanax PO 0.5 mg BID SHARON Administration Lipase/Protease/Amylase 1 each 08/23/19 14:[address] 10,500 Unit FEEDTUBE PRN PRN For Clogged Feeding Tube Aspirin 325 mg 08/20/19 10:00 09/10/19 10:31 Ecotrin PO 325 mg QDAY SHARON Administration Carvedilol 3.125 mg 08/20/19 22:00 09/09/19 22:37 Coreg PO Not Given BID SHARON Epoetin Rahul 10,000 unit 08/25/19 09:32 09/09/19 13:30 Procrit IV 10,000 unit DESIRAE PRN Administration hemodialysis Famotidine 20 mg 09/01/19 10:00 09/10/19 10:31 Pepcid PO 20 mg DAILY SHARON Administration Heparin Sodium (Porcine) 5,000 unit 08/25/19 09:32 09/06/19 13:31 Heparin IV 5,000 unit DESIRAE PRN Administration hemodialysis Heparin Sodium (Porcine) 5,000 unit 09/08/19 22:00 09/10/19 10:31 Heparin SUB-Q 5,000 unit Q12HR SHARON Administration Hydralazine HCl 10 mg 08/20/19 09:00 08/26/19 20:15 Apresoline IV 10 mg Q4HR PRN Administration Hypertension Sodium Chloride 100 mls @ 999 mls/hr 09/02/19 09:30 Nacl 0.9% IV DESIRAE PRN Hypotension Cefepime HCl 1 gm in 100 mls @ 200 mls/hr 09/09/19 10:00 09/10/19 10:30 Cefepime/Ns 1 Gm/100 Ml IV 200 mls/hr Q24HR HSARON Administration Protocol Sodium Chloride 500 mls @ 0 mls/hr 09/09/19 13:08 09/10/19 04:54 Nacl 0.9% 500 Ml IV 09/10/19 13:07 999 mls/hr ONCE NR Administration As Directed Insulin Human Lispro 0 unit 09/06/19 12:00 09/10/19 06:41 Humalog SUB-Q 4 unit Q6HR SHARON Administration Protocol Insulin Human NPH 15 unit 08/31/19 17:00 09/10/19 10:37 Humulin N SUB-Q 15 unit BIDDIAB SHARON Administration Levetiracetam 1,500 mg 08/23/19 22:00 09/10/19 10:30 Keppra FEEDTUBE 1,500 mg BID SHARON Administration Nitroglycerin 0.4 mg 08/20/19 19:00 Nitrostat SL .Q5MIN PRN Chest Pain Oxycodone/Acetaminophen 1 tab 08/21/19 20:37 09/09/19 07:16 Percocet 5/325 PO 1 tab Q6H PRN Administration Pain, Moderate (4-6) Simple Syrup 15 ml 08/23/19 14:47 Simple Syrup FEEDTUBE PRN PRN Hypoglycemia Simple Syrup 30 ml 08/23/19 14:47 Simple Syrup FEEDTUBE PRN PRN Hypoglycemia Sodium Bicarbonate 325 mg 08/23/19 14:47 Sodium Bicarbonate FEEDTUBE PRN PRN For Clogged Feeding Tube
--- NOTE | 2019-09-10 13:26 | Progress Note ---
Assessment and Plan Assessment and plan: [id number] -[place] female patient with significant history of hypertension ,diabetes mellitus, coronary artery disease status post PCI ,CVA and seizure disorder Presented to the emergency room with complaints of generalized weakness, work-up is consistent with acute renal failure, acute liver failure, severe rhabdomyolysis due to statin use, non-ST elevation [place], severe metabolic encephalopathy, multiple specialists are following the patient. * During the course of hospitalization patient was started on hemodialysis with noted improvement in rhabdomyolysis and also mental status. She continues to require hemodialysis. * Statin was discontinued as this was felt to be the inciting factor * Initially there was a discussion for speech evaluation which was done with recommendation for pured diet unfortunately the patient has not been tolerating this and requiring surgical consult to consider PEG placement per the family. Family also made the patient a DNR at this time. * Patient has a history of CVA with residual weakness although was ambulatory prior to this hospitalization. * Once nutritional pathways achieved and outpatient dialysis achieved patient can be discharged Important active issues: 1. Worsening renal function; nephrology initiated hemodialysis - need outpt setup 2. Severe rhabdomyolysis; with renal and liver failure due to statin, improving 3. Acute liver failure/transaminitis - trending down 4. Non-ST elevation [place]; medical Mx 5. Acute encephalopathy, improved, placed on pureed diet 6. Poor p.o. intake: PEG placement recommended : Currently unable to tolerate PO. continue HD, check chxr considering low grade temp although resolved now. GI consulted for Tube feed placement, family again states that they want PEG Tube. Aspiration precautions, keep HOB elevated. 09/07/19: Noted to have significant blood loss with hemoglobin down to 6.2. 1 unit packed red blood cells transfused. Discontinued Plavix discussed with GI anticipate PEG placement soon. Family not available at this time will like to discuss possible hospice with them. Patient very lethargic remote markedly decompensated 09/08: Noted fever, ID consulted, Sepsis work up ongoing. Check labs, anticipating PEG placement in 2 days. Repeat hemoglobin still 6.7 will give additional unit of blood. We will also obtain a CT abdomen and pelvis with oral contrast to further evaluate for possible underlining ischemic colitis. 09/09: Patient still with repeated fever overnight. CT of the abdomen and pelvis with oral contrast was negative for ischemic colitis. Will check Doppler both legs to rule out DVT. Still awaiting to speak with family as none is present at this time. Attempts made to call discussed with case management. Sepsis work- up continues at this point there is no obvious source /Acute kidney injury; likely ATN Worsening renal function, nephrology following - on HD now need outpt HD setup, s/p permcath placement by vascular /Rhabdomyolysis; likely from statin CpK trended upto ~28,000, placed on vigorous IV hydration w/o sig improvement - now on HD Monitor renal function, cont to Hold statin, low volume HCO3 drip, nephrology following, CPK now continues to trend down /Transaminitis; unknown etiology - trending down with normal ele Hepatitis panel negative, no stone in abdominal ultrasound + biliary sludge, no cholecystitis, dilated common bile duct GI following, unable to do MRI due to ICD Management supportive per GI /Metabolic encephalopathy; multifactorial - improved Uremia, transaminitis, acidosis, advanced age with underlying dementia Patient is lethargic but alert, Dobbhoff in place For medications and tube feeding cont supportive care, s/p repeat CT head showed no acute CVA speech eval ordered - recommended pureed diet with nectar thick liquid but patient failed /Metabolic acidosis: due acute kidney injury, mgt per neurology - placed on hCO3 drip, now also on HD /Severe hypokalemia; resolved Closely monitor electrolytes and replete as needed /Non-ST elevation [place]; In the setting of acute renal failure and acute rhabdo could be NSTEMI 2 However patient has risk factors, coronary artery disease - status post PCI in 2013 monitore with Serial cardiac enzymes, antiplatelets, beta-blockers echocardiogram, Cardiology evaluated - no cardiac work-up intended /Coronary artery disease status post PCI /ICD in place; monitor, cardiology evaluation if needed /Dyslipidemia; hold statin in view of rhabdo/transaminitis /Type 2 diabetes mellitus; Accu-Chek sliding scale coverage ADA diet, insulin as needed /History of seizure disorder; seizure precautions Continue Keppra /Anemia-we will transfuse 1 unit packed red blood cell /Severe protein calorie malnutrition Dietitian consult /hypertension; moderate control Continue current antihypertensives and PRN medications --DVT prophylaxis; heparin renal dose --DNR -- Discussed with son Disposition; patient is appropriate for hospice. If the family does not accept hospice patient can be discharged to SNF after PEG tube placed which is kennedy eduled on 09/11/2019 because the patient has been on Eliquis. Poor prognosis History Interval history: Patient seen and examined this morning. Remains very lethargic Hospitalist Physical - Physical exam Narrative exam: VITAL SIGNS: Reviewed. GENERAL: The patient appears chronically ill, lethargic, favors the left side. Very weak vital signs as documented. HEAD: No signs of head trauma. EYES: Pupils are equal. Extraocular motions intact. EARS: Hearing grossly intact. MOUTH: Left facial droop NECK: No adenopathy, no JVD. CHEST: Chest with diminished breath sounds bilaterally. No wheezes, rales, or rhonchi. CARDIAC: Regular rate and rhythm. S1 and S2, without murmurs, gallops, or rubs. VASCULAR: No Edema. Peripheral pulses normal and equal in all extremities. ABDOMEN: Soft, non tender and non distended. No rebound or guarding, and no masses palpated. Bowel Sounds normal. MUSCULOSKELETAL: Extremities without clubbing, cyanosis or edema. NEUROLOGIC EXAM: Awake but lethargic and oriented x 3 No focal sensory or strength deficits. Speech labored. Follows some commands but very lethargic unable to move lower extremities . PSYCHIATRIC: Mood unable to access SKIN: detail exam as documented in skin assessment - Constitutional Vitals: Temp Pulse Resp BP Pulse Ox 99.6 F 69 20 145/45 98 09/10/19 12:13 09/10/19 12:13 09/10/19 12:13 09/10/19 12:13 09/10/19 12:13 General appearance: Present: mild distress, well-nourished, other (Lethargic) Results - Labs CBC & Chem 7: 09/09/19 10:30 09/09/19 10:30 Labs: Laboratory Last Values WBC 17.2 K/mm3 (4.5-11.0) H 09/09/19 10:30 RBC 2.12 M/mm3 (3.65-5.03) L 09/09/19 10:30 Hgb 6.7 gm/dl (10.1-14.3) L 09/09/19 10:30 Hct 20.4 % (30.3-42.9) L 09/09/19 10:30 MCV 97 fl (79-97) 09/09/19 10:30 MCH 32 pg (28-32) 09/09/19 10:30 MCHC 33 % (30-34) 09/09/19 10:30 RDW 21.5 % (13.2-15.2) H 09/09/19 10:30 Plt Count 230 K/mm3 (140-440) 09/09/19 10:30 Lymph % (Auto) 6.5 % (13.4-35.0) L 09/09/19 10:30 [place] % (Auto) 9.5 % (0.0-7.3) H 09/09/19 10:30 Eos % (Auto) 0.1 % (0.0-4.3) 09/09/19 10:30 Baso % (Auto) 0.2 % (0.0-1.8) 09/09/19 10:30 Lymph # 1.1 K/mm3 (1.2-5.4) L 09/09/19 10:30 [place] # 1.6 K/mm3 (0.0-0.8) H 09/09/19 10:30 Eos # 0.0 K/mm3 (0.0-0.4) 09/09/19 10:30 Baso # 0.0 K/mm3 (0.0-0.1) 09/09/19 10:30 Seg Neutrophils % 83.7 % (40.0-70.0) H 09/09/19 10:30 Seg Neutrophils # 14.4 K/mm3 (1.8-7.7) H 09/09/19 10:30 PT 14.6 Sec. (12.2-14.9) 08/29/19 10:15 INR 1.12 (0.87-1.13) 08/29/19 10:15 APTT 59.6 Sec. (24.2-36.6) H 08/20/19 23:09 Heparin Anti-Xa Level 0.18 U.I./ml (0.3-0.7) L 08/22/19 15:01 Sodium 140 mmol/L (137-145) 09/09/19 10:30 Potassium 4.3 mmol/L (3.6-5.0) 09/09/19 10:30 Chloride 95.2 mmol/L (98-107) L 09/09/19 10:30 Carbon Dioxide 21 mmol/L (22-30) L 09/09/19 10:30 Anion Gap 28 mmol/L 09/09/19 10:30 BUN 110 mg/dL (7-17) H 09/09/19 10:30 Creatinine 5.8 mg/dL (0.7-1.2) H 09/09/19 10:30 Estimated GFR 8 ml/min 09/09/19 10:30 BUN/Creatinine Ratio 19 % 09/09/19 10:30 Glucose 211 mg/dL (65-100) H 09/09/19 10:30 POC Glucose 249 (70-105) H 09/10/19 11:15 Lactic Acid 1.60 mmol/L (0.7-2.0) 09/09/19 14:26 Calcium 8.3 mg/dL (8.4-10.2) L 09/09/19 10:30 Magnesium 2.00 mg/dL (1.7-2.3) 08/25/19 07:01 Total Bilirubin 0.20 mg/dL (0.1-1.2) 09/09/19 10:30 Direct Bilirubin < 0.2 mg/dL (0-0.2) 08/31/19 09:47 Indirect Bilirubin 0.1 mg/dL 08/31/19 09:47 AST 21 units/L (5-40) 09/09/19 10:30 ALT 64 units/L (7-56) H 09/09/19 10:30 Alkaline Phosphatase 71 units/L (35-129) 09/09/19 10:30 Ammonia 48.0 umol/L (25-60) 09/05/19 09:07 Total Creatine Kinase 599 units/L (30-135) H 09/06/19 Unknown CK-MB (CK-2) 73.0 ng/mL (0.0-4.0) H 08/21/19 05:35 CK-MB (CK-2) Rel Index 0.3 (0-4) 08/21/19 05:35 Troponin T 0.196 ng/mL (0.00-0.029) H* 08/21/19 05:35 Total Protein 5.3 g/dL (6.3-8.2) L 09/09/19 10:30 Albumin 1.9 g/dL (3.9-5) L 09/09/19 10:30 Albumin/Globulin Ratio 0.6 % 09/09/19 10:30 Triglycerides 125 mg/dL (2-149) 08/20/19 06:11 Cholesterol 89 mg/dL (50-199) 08/20/19 06:11 LDL Cholesterol Direct 45 mg/dL (50-130) L 08/20/19 06:11 HDL Cholesterol 25 mg/dL (40-59) L 08/20/19 06:11 Cholesterol/HDL Ratio 3.56 % 08/20/19 06:11 Urine Color Red (Yellow) 08/20/19 07:38 Urine Turbidity Cloudy (Clear) 08/20/19 07:38 Urine pH 5.0 (5.0-7.0) 08/20/19 07:38 Ur Specific Laura 1.013 (1.003-1.030) 08/20/19 07:38 Urine Protein 100 mg/dl mg/dL (Negative) 08/20/19 07:38 Urine Glucose (UA) Neg mg/dL (Negative) 08/20/19 07:38 Urine Ketones Neg mg/dL (Negative) 08/20/19 07:38 Urine Blood Lg (Negative) 08/20/19 07:38 Urine Nitrite Neg (Negative) 08/20/19 07:38 Urine Bilirubin Neg (Negative) 08/20/19 07:38 Urine Urobilinogen < 2.0 mg/dL (<2.0) 08/20/19 07:38 Ur Leukocyte Esterase Sm (Negative) 08/20/19 07:38 Urine WBC (Auto) 25.0 /HPF (0.0-6.0) H 08/20/19 07:38 Urine RBC (Auto) 4.0 /HPF (0.0-6.0) 08/20/19 07:38 U Epithel Cells (Auto) 3.0 /HPF (0-13.0) 08/20/19 07:38 Urine Bacteria (Auto) 1+ /HPF (Negative) 08/20/19 07:38 Amorphous Crystals Few 08/20/19 07:38 Urine Creatinine 102.1 mg/dL (0.1-20.0) H 08/21/19 20:00 Protein/Creatinin Ratio 1.72 08/21/19 20:00 Urine Sodium 44 mmol/L 08/21/19 10:06 Urine Potassium 23.15 mmol/L 08/21/19 10:06 Urine Chloride 22.8 mmolL (110-250) L 08/21/19 10:06 Urine Total Protein 176 mg/dL (5-11.8) H 08/21/19 20:00 Urine Opiates Screen Presumptive positive 08/21/19 20:00 Urine Methadone Screen Presumptive negative 08/21/19 20:00 Acetaminophen < 5.0 ug/mL (10.0-30.0) L 08/22/19 04:34 Ur Barbiturates Screen Presumptive negative 08/21/19 20:00 Ur Phencyclidine Scrn Presumptive negative 08/21/19 20:00 Ur Amphetamines Screen Presumptive negative 08/21/19 20:00 U Benzodiazepines Scrn Presumptive positive 08/21/19 20:00 Urine Cocaine Screen Presumptive negative 08/21/19 20:00 U Marijuana (THC) Screen Presumptive negative 08/21/19 20:00 Drugs of Abuse Note Disclamer 08/21/19 20:00 Proteinase 3 (PR3) Ab <1.0 AI (<1.0) 08/21/19 08:51 Myeloperoxidase Ab <1.0 AI (<1.0) 08/21/19 08:51 Complement C3 136 mg/dL () 08/21/19 08:51 Complement C4 46 mg/dL () 08/21/19 08:51 Hepatitis A IgM Ab Non-reactive (NonReactive) 08/20/19 23:09 Hep Bs Antigen Non-reactive (Negative) 08/26/19 05:49 Hep B Core IgM Ab Non-reactive (NonReactive) 08/20/19 23:09 Hepatitis C Antibody Non-reactive (NonReactive) 08/26/19 05:49 Blood Type A POSITIVE 09/07/19 08:54 Antibody Screen Negative 09/07/19 08:54 Crossmatch See Detail 09/07/19 08:54 Active Medications - Current Medications Current Medications: Generic Name Dose Route Start Last Admin Trade Name Freq PRN Reason Stop Dose Admin Acetaminophen 650 mg 09/09/19 20:46 09/09/19 20:55 Tylenol PO 650 mg Q6H PRN Administration Pain, Mild (1-3) Alprazolam 0.5 mg 08/20/19 10:00 09/10/19 10:31 Xanax PO 0.5 mg BID KENNEDY Administration Lipase/Protease/Amylase 1 each 08/23/19 14:[address] 10,500 Unit FEEDTUBE PRN PRN For Clogged Feeding Tube Aspirin 325 mg 08/20/19 10:00 09/10/19 10:31 Ecotrin PO 325 mg QDAY KENNEDY Administration Carvedilol 3.125 mg 08/20/19 22:00 09/10/19 10:00 Coreg PO Not Given BID KENNEDY Epoetin Rahul 10,000 unit 08/25/19 09:32 09/09/19 13:30 Procrit IV 10,000 unit DESIRAE PRN Administration hemodialysis Famotidine 20 mg 09/01/19 10:00 09/10/19 10:31 Pepcid PO 20 mg DAILY KNENEDY Administration Heparin Sodium (Porcine) 5,000 unit 08/25/19 09:32 09/06/19 13:31 Heparin IV 5,000 unit DESIRAE PRN Administration hemodialysis Heparin Sodium (Porcine) 5,000 unit 09/08/19 22:00 09/10/19 10:31 Heparin SUB-Q 5,000 unit Q12HR KENNEDY Administration Hydralazine HCl 10 mg 08/20/19 09:00 08/26/19 20:15 Apresoline IV 10 mg Q4HR PRN Administration Hypertension Sodium Chloride 100 mls @ 999 mls/hr 09/02/19 09:30 Nacl 0.9% IV DESIRAE PRN Hypotension Cefepime HCl 1 gm in 100 mls @ 200 mls/hr 09/09/19 10:00 09/10/19 10:30 Cefepime/Ns 1 Gm/100 Ml IV 200 mls/hr Q24HR KENNEDY Administration Protocol Insulin Human Lispro 0 unit 09/06/19 12:00 09/10/19 11:52 Humalog SUB-Q 3 unit Q6HR KENNEDY Administration Protocol Insulin Human NPH 15 unit 08/31/19 17:00 09/10/19 10:37 Humulin N SUB-Q 15 unit BIDDIAB KENNEDY Administration Levetiracetam 1,500 mg 08/23/19 22:00 09/10/19 10:30 Keppra FEEDTUBE 1,500 mg BID KENNEDY Administration Nitroglycerin 0.4 mg 08/20/19 19:00 Nitrostat SL .Q5MIN PRN Chest Pain Oxycodone/Acetaminophen 1 tab 08/21/19 20:37 09/09/19 07:16 Percocet 5/325 PO 1 tab Q6H PRN Administration Pain, Moderate (4-6) Simple Syrup 15 ml 08/23/19 14:47 Simple Syrup FEEDTUBE PRN PRN Hypoglycemia Simple Syrup 30 ml 08/23/19 14:47 Simple Syrup FEEDTUBE PRN PRN Hypoglycemia Sodium Bicarbonate 325 mg 08/23/19 14:47 Sodium Bicarbonate FEEDTUBE PRN PRN For Clogged Feeding Tube Nutrition/Malnutrition Assess - Dietary Evaluation Nutrition/Malnutrition Findings: Nutrition Notes Start: 08/22/19 10:11 Freq: Status: Active Protocol: Document 09/10/19 11:30 LM (Rec: 09/10/19 11:48 LM [id number]) Nutrition Notes Initial or Follow up Reassessment Current Diagnosis Acute Kidney Injury,CKD(stage I-IV),Coronary Artery Disease, Diabetes Other Pertinent Diagnosis GERD, hypokalemia, anemia, Current Diet Glucerna 1.2 at 50ml/hr and pureed Labs/Tests POC glucose 249 Pertinent Medications Humalog Maria Tu-cort Height 5 ft 5 in Weight 85.6 kg [place] Body Weight (kg) 56.81 BMI 31.4 Weight Status Overweight Subjective/Other Information Glucerna running at 50 ml/hr. Per RN pt is tolerating TF. RN stated pt does not open mouth for purred diet and is nonverbal. Percent of energy/protein needs met: 93%/100% Burn Absent Trauma Absent GI Symptoms None Current % PO Negligible Minimum of two criteria No Reduced [employer] Strength Measurably Reduced (severe) #1 Nutrition Diagnosis Inadequate oral intake Diagnosis Progress(for reassessment Continues documentation) Is patient on ventilator? No Is Patient Ambulatory and/or Out of Bed No REE-([facility]-confined to bed) 1562.661 Calculation Used for Recommendations Kcal/kg Additional Notes protein needs: 61 - 77g (0.8 - 1 g/kgBW) (JULIANO w/ no dialysis) fluid needs: 1 ml/kcal Nutrition Intervention Change Diet Order: Continue TF Nutrition Support: Glucerna 1.2 at 50 ml/hr Flush 100 ml q4h Kcal 1,440 Protein (gm) 72 Fluid (mL) 966 Goal #1 Meet at least 80% of energy and protein needs via TF Anticipated Discharge Needs: TF Follow-Up By: 09/17/19 Additional Comments F/U for TF tolerance
--- NOTE | 2019-09-10 14:30 | Gastroenterology Progress Note ---
Assessment and Plan 84-year-old -[place] female patient with significant history of hypertension ,diabetes mellitus, coronary artery disease status post PCI ,CVA and seizure disorder Presented to the emergency room with complaints of generalized weakness, work-up is consistent with acute renal failure, acute liver failure, severe rhabdomyolysis due to statin use, non-ST elevation [place], severe metabolic encephalopathy. GI was consulted earlier in the admission for elevated liver enzymes. Consulted again for PEG placement. # Worsening renal function # Rhabdomyolysis # acute encephalopathy # Poor PO intake. # Transaminitis: liver enzymes trending down. - discussed with the son on the phone regarding the nature of the procedure and potential complications including but not limited to bleeding, infection, bowel injury, and cardiopulmonary complications. Also explained that PEG tube would not change her underlying condition and there is still risk for aspiration. He would like to pursue with the procedure. - last dose of plavix on 09/06/2019. Now it's held. - was planned for EGD/PEG for tomorrow. However, given fever of unclear etiol ogy. May hold off until patient is afebrile for at least 24 hrs. - CT a/p without any acute process. - if continues to have loose stools, recommend ruling out c diff. - cont with feeding through the dobhoff in the meantime. Subjective Date of service: 09/10/19 Principal diagnosis: PEG tube placement Interval history: Patient continues to have fever of unclear etiology overnight. Receiving blood transfusion today. Per nursing, having brown loose stools. Objective - Constitutional Vitals: Temp Pulse Resp BP Pulse Ox 99.6 F 69 20 145/45 98 09/10/19 12:13 09/10/19 12:13 09/10/19 12:13 09/10/19 12:13 09/10/19 12:13 General appearance: no acute distress - Respiratory Respiratory: bilateral: diminished - Cardiovascular Rhythm: regular Heart Sounds: Present: S1 & S2 - Gastrointestinal General gastrointestinal: Present: soft, non-tender, non-distended - Labs CBC & Chem 7: 09/09/19 10:30 09/09/19 10:30 Labs: Laboratory Results - last 24 hr 09/07/19 09/09/19 09/09/19 08:54 14:26 16:45 POC Glucose 232 H Lactic Acid 1.60 Blood Type A POSITIVE Antibody Screen Negative Crossmatch See Detail 09/09/19 09/10/19 09/10/19 22:10 06:22 11:15 POC Glucose 252 H 255 H 249 H Lactic Acid Blood Type Antibody Screen Crossmatch - Imaging CT scan: report reviewed
[2019-09-10 15:10] LABS: Hematocrit 24.4 % (30.3-42.9); Hemoglobin 8.1 gm/dl (10.1-14.3); Mean Corpuscular HGB Conc 33 % (30-34); Mean Corpuscular Volume 93 fl (79-97); Platelet Count 232 K/mm3 (140-440); Red Blood Count 2.62 M/mm3 (3.65-5.03); Red Cell Distribution Width 19.6 % (13.2-15.2)
[2019-09-10 15:34] LABS: Calcium 8.4 mg/dL (8.4-10.2)
--- NOTE | 2019-09-10 16:49 | Vascular Lab Report ---
DUPLEX DOPPLER LOWER EXTREMITY VEINS, BILATERAL INDICATION: DVT. Nonambulatory, pressure sores, diabetes, anemia, hypertension, renal failure TECHNIQUE: Duplex doppler imaging was performed through the veins of both lower extremities using venous cherelle kenton and other maneuvers. COMPARISON: None available. FINDINGS: Right Common Femoral vein: Negative. Right Superficial Femoral vein: Negative. Right Popliteal vein: Negative. Right Calf veins: Negative. Left Common Femoral vein: Negative. Left Superficial Femoral vein: Negative. Left Popliteal vein: Negative. Left Calf veins: Negative. Additional findings: None. IMPRESSION: 1. No sonographic evidence for DVT in either lower extremity. Signer Name: Alejandra Alvarenga MD Signed: 09/10/2019 4:44 PM Workstation Name: [id number]
[2019-09-11] MEDS: INSULIN LISPRO 100 UNIT/ML SUB-Q SCH ×4 (03:17→18:12)
[2019-09-11] MEDS: INSULIN NPH, HUMAN 100 UNIT/1 ML SUB-Q SCH ×2 (08:46→18:38)
[2019-09-11] MEDS: CEFEPIME/NS 1 GM/100 ML 1 GM/100 ML BAG IV SCH ×2 (09:12→18:42)
[2019-09-11] MEDS: carvediloL 3.125 MG TAB PO SCH ×2 (09:12→23:09)
[2019-09-11] MEDS: ASPIRIN EC 325 MG TAB PO SCH (09:12)
[2019-09-11] MEDS: levETIRAcetam 500 MG/5 ML ORAL LIQD FEEDTUBE SCH ×2 (09:13→23:07)
[2019-09-11] MEDS: ALPRAZolam 0.5 MG TAB PO SCH ×2 (09:13→23:10)
[2019-09-11] MEDS: FAMOTIDINE 20 MG TAB PO SCH (09:13)
[2019-09-11] MEDS: HEPARIN 5,000 UNIT/1 ML VIAL SUB-Q SCH ×2 (09:13→23:08)
--- NOTE | 2019-09-11 11:00 | Gastroenterology Progress Note ---
Assessment and Plan 84-year-old -[place]val[place] female patient with significant history of hypertension ,diabetes mellitus, coronary artery disease status post PCI ,CVA and seizure disorder Presented to the emergency room with complaints of generalized weakness, work-up is consistent with acute renal failure, acute liver failure, severe rhabdomyolysis due to statin use, non-ST elevation [place], severe metabolic encephalopathy. GI was consulted earlier in the admission for elevated liver enzymes. Consulted again for PEG placement. # Worsening renal function # Rhabdomyolysis # acute encephalopathy # Poor PO intake. # Transaminitis: liver enzymes trending down. - discussed with the son on the phone regarding the nature of the procedure and potential complications including but not limited to bleeding, infection, bowel injury, and cardiopulmonary complications. Also explained that PEG tube would not change her underlying condition and there is still risk for aspiration. He would like to pursue with the procedure. - last dose of plavix on 09/06/2019. Now it's held. - was planned for EGD/PEG for today. However, given worsening of leukocytosis with hold off until improved. - CT a/p without any acute process. ID following-on antibiotics with repeat blood cultures pending and recommendations for possible HD cath removal based on progress -consider stool studies to r/o Cdiff if continued loose stools - cont with feeding through the dobhoff in the meantime. Subjective Date of service: 09/11/19 Principal diagnosis: PEG tube placement Interval history: No acute distress. Objective - Constitutional Vitals: Temp Pulse Resp BP Pulse Ox 97.5 F L 71 22 139/59 100 09/11/19 08:55 09/11/19 10:00 09/11/19 08:55 09/11/19 10:00 09/11/19 00:23 General appearance: no acute distress - EENT ENT: other (+dobhoff) - Respiratory Respiratory effort: normal Respiratory: bilateral: diminished - Cardiovascular Rhythm: regular - Gastrointestinal General gastrointestinal: Present: soft, non-distended, normal bowel sounds - Labs CBC & Chem 7: 09/10/19 14:43 09/10/19 14:43 Labs: Laboratory Results - last 24 hr 09/10/19 09/10/19 09/10/19 11:15 14:43 14:43 WBC 18.9 H RBC 2.62 L Hgb 8.1 L Hct 24.4 L MCV 93 MCH 31 MCHC 33 RDW 19.6 H Plt Count 232 Sodium 139 Potassium 3.6 Chloride 97.5 L Carbon Dioxide 22 Anion Gap 23 BUN 72 H Creatinine 3.7 H Estimated GFR 14 BUN/Creatinine Ratio 19 Glucose 206 H POC Glucose 249 H Calcium 8.4 09/10/19 09/11/19 09/11/19 16:30 00:20 05:54 WBC RBC Hgb Hct MCV MCH MCHC RDW Plt Count Sodium Potassium Chloride Carbon Dioxide Anion Gap BUN Creatinine Estimated GFR BUN/Creatinine Ratio Glucose POC Glucose 210 H 121 H 82 Calcium
[2019-09-11] MEDS: EPOETIN ALFA 10,000 UNIT/1 ML INJ IV PRN (11:55)
--- NOTE | 2019-09-11 11:56 | Progress Note ---
Assessment and Plan Cultures: 08/20/2019 blood culture: No growth 08/20/2019 urine culture: No growth 09/09/2019 blood culture: GPC in pairs. A/P: 84-year-old female with hypertension, diabetes mellitus, coronary artery disease, indwelling AICD was admitted to the hospital on 08/20/2019 with generalized weakness. Upon evaluation, she was found to have no leukocytosis or fever. Labs showed acute renal failure along with transaminase elevation along with CK of 20K. On 08/25/2019, patient underwent right IJ PermCath insertion and was started on dialysis by nephrology, now with: #Persistent high fevers: Not present on admission. Patient x-ray does not show any obvious pneumonia. CT with b/l pleural effusions, no intra-abdominal process. Blood cultures: 07/12 GPC. #GPC in pairs bacteremia: continue abx. Follow up ID and susceptibility. Recheck blood cultures. #Acute encephalopathy: Multifactorial #Acute renal failure: Now requiring dialysis. Renally dose antibiotics. #Elevated LFTs: Likely related to rhabdomyolysis: Trending down. Recs: Continue empiric IV cefepime and vancomycin ordered, renally adjusted. Day 3 Follow up ID and susceptibility. Repeat blood cultures ordered Depending on organism ID and persistence of bacteremia, will need to decide if HD cath can stay or needs removal. d/w Dr. Villaseñor. Magda Ybarra MD, FACP [facility] ([facility]) C: [phone] O: [phone] F: [phone] Subjective Date of service: 09/11/19 Principal diagnosis: PEG tube placement Interval history: Patient seen at dialysis. Remains unresponsive, moaning. Low grade temperatures + but no fever. Objective - Exam Narrative Exam: Physical Exam: Constitutional: drowsy, non verbal, moaning Head, Ears, Nose: Normocephalic, atraumatic. External ears, nose normal Eyes: Conjunctivae/corneas clear. No icterus. No ptosis. Neck: Supple, no meningeal signs Oral: unable to examine Cardiovascular: S1, S2 normal. Respiratory: b/l upper airway transmitted sounds GI: Soft, bowel sounds normal. No peritoneal signs Musculoskeletal: No pedal edema, no cyanosis. HD cath + Skin: No rash or abscess Hem/Lymphatic: No palpable cervical or supraclavicular nodes. No lymphangitis Psych: no agitation Neurological: comatose, non verbal, does not follow any commands - Constitutional Vitals: Vital Signs Temp Pulse Resp BP Pulse Ox 97.5 F L 72 22 136/63 100 09/11/19 08:55 09/11/19 11:30 09/11/19 08:55 09/11/19 11:30 09/11/19 00:23 Temperature -Last 24 Hours Temperature 97.5 F Temperature 97.5 F Temperature 98.5 F Temperature 99.6 F - Labs CBC & Chem 7: 09/10/19 14:43 09/10/19 14:43 Labs: Abnormal lab results 09/10/19 09/10/19 09/10/19 Range/Units 14:43 14:43 16:30 WBC 18.9 H (4.5-11.0) K/mm3 RBC 2.62 L (3.65-5.03) M/mm3 Hgb 8.1 L (10.1-14.3) gm/dl Hct 24.4 L (30.3-42.9) % RDW 19.6 H (13.2-15.2) % Chloride 97.5 L (98-107) mmol/L BUN 72 H (7-17) mg/dL Creatinine 3.7 H (0.7-1.2) mg/dL Glucose 206 H (65-100) mg/dL POC Glucose 210 H (70-105) 09/11/19 Range/Units 00:20 WBC (4.5-11.0) K/mm3 RBC (3.65-5.03) M/mm3 Hgb (10.1-14.3) gm/dl Hct (30.3-42.9) % RDW (13.2-15.2) % Chloride (98-107) mmol/L BUN (7-17) mg/dL Creatinine (0.7-1.2) mg/dL Glucose (65-100) mg/dL POC Glucose 121 H (70-105)
--- NOTE | 2019-09-11 13:17 | Progress Note ---
Assessment and Plan - Patient Problems (1) Acute renal failure Current Visit: Yes Status: Acute Plan to address problem: Acute tubular necrosis secondary to rhabdomyolysis. no significant renal recovery seen. Cont temporary HD on TTS schedule, outpatient arrangement as per case management. Awaiting PEG placement (2) Acute renal failure due to rhabdomyolysis Current Visit: Yes Status: Acute Plan to address problem: Probably statin induced. Statin has been stopped. CPK is improving. (3) Hypertensive chronic kidney disease with stage 1 through stage 4 chronic kidney disease, or unspecified chronic kidney disease Current Visit: Yes Status: Acute Plan to address problem: monitor BP on current meds (4) Type 2 diabetes mellitus with diabetic chronic kidney disease Current Visit: Yes Status: Chronic Plan to address problem: DM management per primary attending. (5) Metabolic acidosis Current Visit: Yes Status: Acute Plan to address problem: improved with HD (6) Transaminasemia Current Visit: Yes Status: Acute Plan to address problem: Liver function improving. Follow-up liver function test off of statin Subjective Date of service: 09/11/19 Principal diagnosis: PEG tube placement Interval history: Pt awake, alert, in no acute respiratory distress. Objective - Vital Signs Vital signs: Vital Signs - 12hr 09/11/19 09/11/19 09/11/19 08:55 09:00 09:15 Temperature 97.5 F L Pulse Rate 71 70 69 Respiratory 22 Rate Blood Pressure 108/49 118/51 104/45 09/11/19 09/11/19 09/11/19 09:30 09:45 10:00 Temperature Pulse Rate 72 72 71 Respiratory Rate Blood Pressure 123/56 140/53 139/59 09/11/19 09/11/19 09/11/19 10:15 10:30 10:45 Temperature Pulse Rate 70 69 70 Respiratory Rate Blood Pressure 136/56 135/62 128/57 09/11/19 09/11/19 09/11/19 11:00 11:15 11:30 Temperature Pulse Rate 68 60 72 Respiratory Rate Blood Pressure 124/52 116/59 136/63 09/11/19 09/11/19 09/11/19 11:45 12:00 12:15 Temperature Pulse Rate 72 59 L 69 Respiratory Rate Blood Pressure 129/56 138/58 148/50 - General Appearance General appearance: well-developed, well-nourished, appears stated age EENT: ATNC, PERRL, mucous membranes moist Neck: no JVD Respiratory: Present: Clear to Ascultation Cardiology: regular, S1S2 Gastrointestinal: normoactive bowel sounds Integumentary: no rash, other (+ edema ) Neurologic: no focal deficit, confused, disoriented - Lab 09/10/19 14:43 09/10/19 14:43 Most recent lab results Calcium 8.4 mg/dL (8.4-10.2) 09/10/19 14:43 Magnesium 2.00 mg/dL (1.7-2.3) 08/25/19 07:01 Urine Creatinine 102.1 mg/dL (0.1-20.0) H 08/21/19 20:00 Urine Sodium 44 mmol/L 08/21/19 10:06 Urine Total Protein 176 mg/dL (5-11.8) H 08/21/19 20:00 Medications & Allergies - Medications Allergies/Adverse Reactions: Allergies No Known Allergies Allergy (Verified 11/29/13 10:39) Home Medications: Home Medications Medication Instructions Recorded Confirmed Last Taken Type ALPRAZolam [Xanax TAB] 0.5 mg PO BID 03/21/13 08/20/19 01/29/14 History Amlodipine Bes/Olmesartan Med 2.5 mg PO QDAY 03/21/13 08/20/19 1 Day Ago History [Shekhar 10-20 mg] ~08/19/19 Glimepiride [Amaryl] 2 mg PO QAM 03/21/13 08/20/19 1 Day Ago History ~08/19/19 2 mg Losartan [Cozaar] 25 mg PO QDAY 03/21/13 08/20/19 1 Day Ago History ~08/19/19 25 mg Atorvastatin [Lipitor] 40 mg PO QHS 11/13/13 08/20/19 01/29/14 History Oxycodone HCl/Acetaminophen 1 each PO Q6HR PRN #20 tablet 11/29/13 08/20/19 01/30/14 Rx [Percocet 7.5/325 mg] Aspirin EC [Ecotrin] 325 mg PO QDAY #30 tablet 02/08/14 08/20/19 Unknown Rx Clopidogrel [Plavix] 75 mg PO QDAY #30 tablet 02/08/14 08/20/19 Unknown Rx Pantoprazole [Protonix TAB] 40 mg PO QDAY #30 tablet 02/08/14 08/20/19 1 Day Ago Rx ~08/19/19 40 mg carvediloL [Coreg] 3.125 mg PO BID #60 tablet 02/08/14 08/20/19 Unknown Rx levETIRAcetam [Keppra TAB] 1,500 mg PO BID 08/20/19 08/20/19 Unknown History Citalopram [celeXA] 40 mg PO QDAY 08/22/19 08/22/19 Unknown History Active Medications: Generic Name Dose Route Start Last Admin Trade Name Freq PRN Reason Stop Dose Admin Acetaminophen 650 mg 09/09/19 20:46 09/09/19 20:55 Tylenol PO 650 mg Q6H PRN Administration Pain, Mild (1-3) Alprazolam 0.5 mg 08/20/19 10:00 09/11/19 09:13 Xanax PO Not Given BID [facility] Lipase/Protease/Amylase 1 each 08/23/19 14:[address] 10,500 Unit FEEDTUBE PRN PRN For Clogged Feeding Tube Aspirin 325 mg 08/20/19 10:00 09/11/19 09:12 Ecotrin PO Not Given QDAY [facility] Carvedilol 3.125 mg 08/20/19 22:00 09/11/19 09:12 Coreg PO Not Given BID [facility] Epoetin Rahul 10,000 unit 08/25/19 09:32 09/11/19 11:55 Procrit IV 10,000 unit DESIRAE PRN Administration hemodialysis Famotidine 20 mg 09/01/19 10:00 09/11/19 09:13 Pepcid PO Not Given DAILY [facility] Heparin Sodium (Porcine) 5,000 unit 08/25/19 09:32 09/06/19 13:31 Heparin IV 5,000 unit DESIRAE PRN Administration hemodialysis Heparin Sodium (Porcine) 5,000 unit 09/08/19 22:00 09/11/19 09:13 Heparin SUB-Q Not Given Q12HR [facility] Hydralazine HCl 10 mg 08/20/19 09:00 08/26/19 20:15 Apresoline IV 10 mg Q4HR PRN Administration Hypertension Sodium Chloride 100 mls @ 999 mls/hr 09/02/19 09:30 Nacl 0.9% IV DESIRAE PRN Hypotension Cefepime HCl 1 gm in 100 mls @ 200 mls/hr 09/09/19 10:00 09/11/19 09:12 Cefepime/Ns 1 Gm/100 Ml IV Not Given Q24HR [facility] Protocol Insulin Human Lispro 0 unit 09/06/19 12:00 09/11/19 11:27 Humalog SUB-Q Not Given Q6HR [facility] Protocol Insulin Human NPH 15 unit 08/31/19 17:00 09/11/19 08:46 Humulin N SUB-Q Not Given BIDDIAB [facility] Levetiracetam 1,500 mg 08/23/19 22:00 09/11/19 09:13 Keppra FEEDTUBE Not Given BID [facility] Nitroglycerin 0.4 mg 08/20/19 19:00 Nitrostat SL .Q5MIN PRN Chest Pain Oxycodone/Acetaminophen 1 tab 08/21/19 20:37 09/09/19 07:16 Percocet 5/325 PO 1 tab Q6H PRN Administration Pain, Moderate (4-6) Simple Syrup 15 ml 08/23/19 14:47 Simple Syrup FEEDTUBE PRN PRN Hypoglycemia Simple Syrup 30 ml 08/23/19 14:47 Simple Syrup FEEDTUBE PRN PRN Hypoglycemia Sodium Bicarbonate 325 mg 08/23/19 14:47 Sodium Bicarbonate FEEDTUBE PRN PRN For Clogged Feeding Tube
--- NOTE | 2019-09-11 16:07 | Progress Note ---
Assessment and Plan Assessment and plan: [id number] -[place] female patient with significant history of hypertension ,diabetes mellitus, coronary artery disease status post PCI ,CVA and seizure disorder Presented to the emergency room with complaints of generalized weakness, work-up is consistent with acute renal failure, acute liver failure, severe rhabdomyolysis due to statin use, non-ST elevation [place], severe metabolic encephalopathy, multiple specialists are following the patient. * During the course of hospitalization patient was started on hemodialysis with noted improvement in rhabdomyolysis and also mental status. She continues to require hemodialysis. * Statin was discontinued as this was felt to be the inciting factor * Initially there was a discussion for speech evaluation which was done with recommendation for pured diet unfortunately the patient has not been tolerating this and requiring surgical consult to consider PEG placement per the family. Family also made the patient a DNR at this time. * Patient has a history of CVA with residual weakness although was ambulatory prior to this hospitalization. * Once nutritional pathways achieved and outpatient dialysis achieved patient can be discharged Important active issues: 1. Worsening renal function; nephrology initiated hemodialysis - need outpt setup 2. Severe rhabdomyolysis; with renal and liver failure due to statin, improving 3. Acute liver failure/transaminitis - trending down 4. Non-ST elevation [place]; medical Mx 5. Acute encephalopathy, improved, placed on pureed diet 6. Poor p.o. intake: PEG placement recommended : Currently unable to tolerate PO. continue HD, check chxr considering low grade temp although resolved now. GI consulted for Tube feed placement, family again states that they want PEG Tube. Aspiration precautions, keep HOB elevated. 09/07/19: Noted to have significant blood loss with hemoglobin down to 6.2. 1 unit packed red blood cells transfused. Discontinued Plavix discussed with GI anticipate PEG placement soon. Family not available at this time will like to discuss possible hospice with them. Patient very lethargic remote markedly decompensated 09/08: Noted fever, ID consulted, Sepsis work up ongoing. Check labs, anticipating PEG placement in 2 days. Repeat hemoglobin still 6.7 will give additional unit of blood. We will also obtain a CT abdomen and pelvis with oral contrast to further evaluate for possible underlining ischemic colitis. 09/09: Patient still with repeated fever overnight. CT of the abdomen and pelvis with oral contrast was negative for ischemic colitis. Will check Doppler both legs to rule out DVT. Still awaiting to speak with family as none is present at this time. Attempts made to call discussed with case management. Sepsis work- up continues at this point there is no obvious source 3/5:Continue dialysis and Sepsis work up. BLOOD CULTURES positive and being rechecked to ensure clearance. Discussed with the patients family, they understand the severity of the illness and will discuss when discharged. Gram Positive Cocci Bactermia ?Contaminate Persistent Fever. Not present on admission. No clear source /Acute kidney injury; likely ATN Worsening renal function, nephrology following - on HD now need outpt HD setup, s/p permcath placement by vascular /Rhabdomyolysis; likely from statin CpK trended upto ~28,000, placed on vigorous IV hydration w/o sig improvement - now on HD Monitor renal function, cont to Hold statin, low volume HCO3 drip, nephrology following, CPK now continues to trend down /Transaminitis; unknown etiology - trending down with normal ele Hepatitis panel negative, no stone in abdominal ultrasound + biliary sludge, no cholecystitis, dilated common bile duct GI following, unable to do MRI due to ICD Management supportive per GI /Metabolic encephalopathy; multifactorial - improved Uremia, transaminitis, acidosis, advanced age with underlying dementia Patient is lethargic but alert, Dobbhoff in place For medications and tube feeding cont supportive care, s/p repeat CT head showed no acute CVA speech eval ordered - recommended pureed diet with nectar thick liquid but patient failed /Metabolic acidosis: due acute kidney injury, mgt per neurology - placed on hCO3 drip, now also on HD /Severe hypokalemia; resolved Closely monitor electrolytes and replete as needed /Non-ST elevation [place]; In the setting of acute renal failure and acute rhabdo could be NSTEMI 2 However patient has risk factors, coronary artery disease - status post PCI in 2013 monitore with Serial cardiac enzymes, antiplatelets, beta-blockers echoc ardiogram, Cardiology evaluated - no cardiac work-up intended /Coronary artery disease status post PCI /ICD in place; monitor, cardiology evaluation if needed /Dyslipidemia; hold statin in view of rhabdo/transaminitis /Type 2 diabetes mellitus; Accu-Chek sliding scale coverage ADA diet, insulin as needed /History of seizure disorder; seizure precautions Continue Keppra /Anemia-we will transfuse 1 unit packed red blood cell /Severe protein calorie malnutrition Dietitian consult /hypertension; moderate control Continue current antihypertensives and PRN medications --DVT prophylaxis; heparin renal dose --DNR -- Discussed with son Disposition; patient is appropriate for hospice. If the family does not accept hospice patient can be discharged to SNF after PEG tube placed which is scheduled on 09/11/2019 because the patient has been on Eliquis. Poor prognosis History Interval history: Patient seen and examined this morning. Remains very lethargic. No new fever today. GI anticipate PEG placement tomorrow Hospitalist Physical - Physical exam Narrative exam: VITAL SIGNS: Reviewed. GENERAL: The patient appears chronically ill, lethargic, favors the left side. Very weak vital signs as documented. HEAD: No signs of head trauma. EYES: Pupils are equal. Extraocular motions intact. EARS: Hearing grossly intact. MOUTH: Left facial droop NECK: No adenopathy, no JVD. CHEST: Chest with diminished breath sounds bilaterally. No wheezes, rales, or rhonchi. CARDIAC: Regular rate and rhythm. S1 and S2, without murmurs, gallops, or rubs. VASCULAR: No Edema. Peripheral pulses normal and equal in all extremities. ABDOMEN: Soft, non tender and non distended. No rebound or guarding, and no masses palpated. Bowel Sounds normal. MUSCULOSKELETAL: Extremities without clubbing, cyanosis or edema. NEUROLOGIC EXAM: Awake but lethargic and oriented x 3 No focal sensory or strength deficits. Speech labored. Follows some commands but very lethargic unable to move lower extremities . PSYCHIATRIC: Mood unable to access SKIN: detail exam as documented in skin assessment - Constitutional Vitals: Temp Pulse Resp BP Pulse Ox 97.5 F L 69 22 148/50 100 09/11/19 08:55 09/11/19 12:15 09/11/19 08:55 09/11/19 12:15 09/11/19 00:23 General appearance: Present: mild distress, well-nourished, other (Lethargic) Results - Labs CBC & Chem 7: 09/10/19 14:43 09/10/19 14:43 Labs: Laboratory Last Values WBC 18.9 K/mm3 (4.5-11.0) H 09/10/19 14:43 RBC 2.62 M/mm3 (3.65-5.03) L 09/10/19 14:43 Hgb 8.1 gm/dl (10.1-14.3) L 09/10/19 14:43 Hct 24.4 % (30.3-42.9) L 09/10/19 14:43 MCV 93 fl (79-97) 09/10/19 14:43 MCH 31 pg (28-32) 09/10/19 14:43 MCHC 33 % (30-34) 09/10/19 14:43 RDW 19.6 % (13.2-15.2) H 09/10/19 14:43 Plt Count 232 K/mm3 (140-440) 09/10/19 14:43 Lymph % (Auto) 6.5 % (13.4-35.0) L 09/09/19 10:30 [place] % (Auto) 9.5 % (0.0-7.3) H 09/09/19 10:30 Eos % (Auto) 0.1 % (0.0-4.3) 09/09/19 10:30 Baso % (Auto) 0.2 % (0.0-1.8) 09/09/19 10:30 Lymph # 1.1 K/mm3 (1.2-5.4) L 09/09/19 10:30 [place] # 1.6 K/mm3 (0.0-0.8) H 09/09/19 10:30 Eos # 0.0 K/mm3 (0.0-0.4) 09/09/19 10:30 Baso # 0.0 K/mm3 (0.0-0.1) 09/09/19 10:30 Seg Neutrophils % 83.7 % (40.0-70.0) H 09/09/19 10:30 Seg Neutrophils # 14.4 K/mm3 (1.8-7.7) H 09/09/19 10:30 PT 14.6 Sec. (12.2-14.9) 08/29/19 10:15 INR 1.12 (0.87-1.13) 08/29/19 10:15 APTT 59.6 Sec. (24.2-36.6) H 08/20/19 23:09 Heparin Anti-Xa Level 0.18 U.I./ml (0.3-0.7) L 08/22/19 15:01 Sodium 139 mmol/L (137-145) 09/10/19 14:43 Potassium 3.6 mmol/L (3.6-5.0) 09/10/19 14:43 Chloride 97.5 mmol/L (98-107) L 09/10/19 14:43 Carbon Dioxide 22 mmol/L (22-30) 09/10/19 14:43 Anion Gap 23 mmol/L 09/10/19 14:43 BUN 72 mg/dL (7-17) H 09/10/19 14:43 Creatinine 3.7 mg/dL (0.7-1.2) H 09/10/19 14:43 Estimated GFR 14 ml/min 09/10/19 14:43 BUN/Creatinine Ratio 19 % 09/10/19 14:43 Glucose 206 mg/dL (65-100) H 09/10/19 14:43 POC Glucose 163 (70-105) H 09/11/19 13:05 Lactic Acid 1.60 mmol/L (0.7-2.0) 09/09/19 14:26 Calcium 8.4 mg/dL (8.4-10.2) 09/10/19 14:43 Magnesium 2.00 mg/dL (1.7-2.3) 08/25/19 07:01 Total Bilirubin 0.20 mg/dL (0.1-1.2) 09/09/19 10:30 Direct Bilirubin < 0.2 mg/dL (0-0.2) 08/31/19 09:47 Indirect Bilirubin 0.1 mg/dL 08/31/19 09:47 AST 21 units/L (5-40) 09/09/19 10:30 ALT 64 units/L (7-56) H 09/09/19 10:30 Alkaline Phosphatase 71 units/L (35-129) 09/09/19 10:30 Ammonia 48.0 umol/L (25-60) 09/05/19 09:07 Total Creatine Kinase 599 units/L (30-135) H 09/06/19 Unknown CK-MB (CK-2) 73.0 ng/mL (0.0-4.0) H 08/21/19 05:35 CK-MB (CK-2) Rel Index 0.3 (0-4) 08/21/19 05:35 Troponin T 0.196 ng/mL (0.00-0.029) H* 08/21/19 05:35 Total Protein 5.3 g/dL (6.3-8.2) L 09/09/19 10:30 Albumin 1.9 g/dL (3.9-5) L 09/09/19 10:30 Albumin/Globulin Ratio 0.6 % 09/09/19 10:30 Triglycerides 125 mg/dL (2-149) 08/20/19 06:11 Cholesterol 89 mg/dL (50-199) 08/20/19 06:11 LDL Cholesterol Direct 45 mg/dL (50-130) L 08/20/19 06:11 HDL Cholesterol 25 mg/dL (40-59) L 08/20/19 06:11 Cholesterol/HDL Ratio 3.56 % 08/20/19 06:11 Urine Color Red (Yellow) 08/20/19 07:38 Urine Turbidity Cloudy (Clear) 08/20/19 07:38 Urine pH 5.0 (5.0-7.0) 08/20/19 07:38 Ur Specific Distant 1.013 (1.003-1.030) 08/20/19 07:38 Urine Protein 100 mg/dl mg/dL (Negative) 08/20/19 07:38 Urine Glucose (UA) Neg mg/dL (Negative) 08/20/19 07:38 Urine Ketones Neg mg/dL (Negative) 08/20/19 07:38 Urine Blood Lg (Negative) 08/20/19 07:38 Urine Nitrite Neg (Negative) 08/20/19 07:38 Urine Bilirubin Neg (Negative) 08/20/19 07:38 Urine Urobilinogen < 2.0 mg/dL (<2.0) 08/20/19 07:38 Ur Leukocyte Esterase Sm (Negative) 08/20/19 07:38 Urine WBC (Auto) 25.0 /HPF (0.0-6.0) H 08/20/19 07:38 Urine RBC (Auto) 4.0 /HPF (0.0-6.0) 08/20/19 07:38 U Epithel Cells (Auto) 3.0 /HPF (0-13.0) 08/20/19 07:38 Urine Bacteria (Auto) 1+ /HPF (Negative) 08/20/19 07:38 Amorphous Crystals Few 08/20/19 07:38 Urine Creatinine 102.1 mg/dL (0.1-20.0) H 08/21/19 20:00 Protein/Creatinin Ratio 1.72 08/21/19 20:00 Urine Sodium 44 mmol/L 08/21/19 10:06 Urine Potassium 23.15 mmol/L 08/21/19 10:06 Urine Chloride 22.8 mmolL (110-250) L 08/21/19 10:06 Urine Total Protein 176 mg/dL (5-11.8) H 08/21/19 20:00 Urine Opiates Screen Presumptive positive 08/21/19 20:00 Urine Methadone Screen Presumptive negative 08/21/19 20:00 Acetaminophen < 5.0 ug/mL (10.0-30.0) L 08/22/19 04:34 Ur Barbiturates Screen Presumptive negative 08/21/19 20:00 Ur Phencyclidine Scrn Presumptive negative 08/21/19 20:00 Ur Amphetamines Screen Presumptive negative 08/21/19 20:00 U Benzodiazepines Scrn Presumptive positive 08/21/19 20:00 Urine Cocaine Screen Presumptive negative 08/21/19 20:00 U Marijuana (THC) Screen Presumptive negative 08/21/19 20:00 Drugs of Abuse Note Disclamer 08/21/19 20:00 Proteinase 3 (PR3) Ab <1.0 AI (<1.0) 08/21/19 08:51 Myeloperoxidase Ab <1.0 AI (<1.0) 08/21/19 08:51 Complement C3 136 mg/dL () 08/21/19 08:51 Complement C4 46 mg/dL () 08/21/19 08:51 Hepatitis A IgM Ab Non-reactive (NonReactive) 08/20/19 23:09 Hep Bs Antigen Non-reactive (Negative) 08/26/19 05:49 Hep B Core IgM Ab Non-reactive (NonReactive) 08/20/19 23:09 Hepatitis C Antibody Non-reactive (NonReactive) 08/26/19 05:49 Blood Type A POSITIVE 09/07/19 08:54 Antibody Screen Negative 09/07/19 08:54 Crossmatch See Detail 09/07/19 08:54 Active Medications - Current Medications Current Medications: Generic Name Dose Route Start Last Admin Trade Name Freq PRN Reason Stop Dose Admin Acetaminophen 650 mg 09/09/19 20:46 09/09/19 20:55 Tylenol PO 650 mg Q6H PRN Administration Pain, Mild (1-3) Alprazolam 0.5 mg 08/20/19 10:00 09/11/19 09:13 Xanax PO Not Given BID [facility] Lipase/Protease/Amylase 1 each 08/23/19 14:[address] 10,500 Unit FEEDTUBE PRN PRN For Clogged Feeding Tube Aspirin 325 mg 08/20/19 10:00 09/11/19 09:12 Ecotrin PO Not Given QDAY [facility] Carvedilol 3.125 mg 08/20/19 22:00 09/11/19 09:12 Coreg PO Not Given BID [facility] Epoetin Rahul 10,000 unit 08/25/19 09:32 09/11/19 11:55 Procrit IV 10,000 unit DESIRAE PRN Administration hemodialysis Famotidine 20 mg 09/01/19 10:00 09/11/19 09:13 Pepcid PO Not Given DAILY [facility] Heparin Sodium (Porcine) 5,000 unit 08/25/19 09:32 09/06/19 13:31 Heparin IV 5,000 unit DESIRAE PRN Administration hemodialysis Heparin Sodium (Porcine) 5,000 unit 09/08/19 22:00 09/11/19 09:13 Heparin SUB-Q Not Given Q12HR [facility] Hydralazine HCl 10 mg 08/20/19 09:00 08/26/19 20:15 Apresoline IV 10 mg Q4HR PRN Administration Hypertension Sodium Chloride 100 mls @ 999 mls/hr 09/02/19 09:30 Nacl 0.9% IV DESIRAE PRN Hypotension Cefepime HCl 1 gm in 100 mls @ 200 mls/hr 09/09/19 10:00 09/11/19 09:12 Cefepime/Ns 1 Gm/100 Ml IV Not Given Q24HR [facility] Protocol Insulin Human Lispro 0 unit 09/06/19 12:00 09/11/19 11:27 Humalog SUB-Q Not Given Q6HR [facility] Protocol Insulin Human NPH 15 unit 08/31/19 17:00 09/11/19 08:46 Humulin N SUB-Q Not Given BIDDIAB [facility] Levetiracetam 1,500 mg 08/23/19 22:00 09/11/19 09:13 Keppra FEEDTUBE Not Given BID [facility] Nitroglycerin 0.4 mg 08/20/19 19:00 Nitrostat SL .Q5MIN PRN Chest Pain Oxycodone/Acetaminophen 1 tab 08/21/19 20:37 09/09/19 07:16 Percocet 5/325 PO 1 tab Q6H PRN Administration Pain, Moderate (4-6) Simple Syrup 15 ml 08/23/19 14:47 Simple Syrup FEEDTUBE PRN PRN Hypoglycemia Simple Syrup 30 ml 08/23/19 14:47 Simple Syrup FEEDTUBE PRN PRN Hypoglycemia Sodium Bicarbonate 325 mg 08/23/19 14:47 Sodium Bicarbonate FEEDTUBE PRN PRN For Clogged Feeding Tube Nutrition/Malnutrition Assess - Dietary Evaluation Nutrition/Malnutrition Findings: Nutrition Notes Start: 08/22/19 10: 11 Freq: Status: Active Protocol: Document 09/10/19 11:30 LM (Rec: 09/10/19 11:48 LM [id number]) Nutrition Notes Initial or Follow up Reassessment Current Diagnosis Acute Kidney Injury,CKD(stage I-IV),Coronary Artery Disease, Diabetes Other Pertinent Diagnosis GERD, hypokalemia, anemia, Current Diet Glucerna 1.2 at 50ml/hr and pureed Labs/Tests POC glucose 249 Pertinent Medications Humalog Solu-cortef Height 5 ft 5 in Weight 85.6 kg [place] Body Weight (kg) 56.81 BMI 31.4 Weight Status Overweight Subjective/Other Information Glucerna running at 50 ml/hr. Per RN pt is tolerating TF. RN stated pt does not open mouth for purred diet and is nonverbal. Percent of energy/protein needs met: 93%/100% Burn Absent Trauma Absent GI Symptoms None Current % PO Negligible Minimum of two criteria No Reduced Director Of Home Health Services Strength Measurably Reduced (severe) #1 Nutrition Diagnosis Inadequate oral intake Diagnosis Progress(for reassessment Continues documentation) Is patient on ventilator? No Is Patient Ambulatory and/or Out of Bed No REE-([facility]-confined to bed) [phone] Calculation Used for Recommendations Kcal/kg Additional Notes protein needs: 61 - 77g (0.8 - 1 g/kgBW) (JULIANO w/ no dialysis) fluid needs: 1 ml/kcal Nutrition Intervention Change Diet Order: Continue TF Nutrition Support: Glucerna 1.2 at 50 ml/hr Flush 100 ml q4h Kcal 1,440 Protein (gm) 72 Fluid (mL) 966 Goal #1 Meet at least 80% of energy and protein needs via TF Anticipated Discharge Needs: TF Follow-Up By: 09/17/19 Additional Comments F/U for TF tolerance
[2019-09-11] MEDS ORDERED: SODIUM CHLORIDE*PRIMING MACHINE ONLY FOR DIALYSIS MC ONE (20:09)
[2019-09-11] MEDS: ACETAMINOPHEN 325 MG TAB PO PRN (23:06)
[2019-09-12] MEDS: INSULIN LISPRO 100 UNIT/ML SUB-Q SCH ×4 (03:32→18:00)
[2019-09-12 05:14] LABS: Basophils % (Auto) 0.2 % (0.0-1.8); Eosinophils # (Auto) 0.1 K/mm3 (0.0-0.4); Eosinophils % (Auto) 0.6 % (0.0-4.3); Hematocrit 25.9 % (30.3-42.9); Hemoglobin 8.5 gm/dl (10.1-14.3); Lymphocytes % (Auto) 6.4 % (13.4-35.0); Mean Corpuscular HGB Conc 33 % (30-34); Mean Corpuscular Volume 94 fl (79-97); Monocytes # (Auto) 1.1 K/mm3 (0.0-0.8); Platelet Count 259 K/mm3 (140-440); Red Blood Count 2.76 M/mm3 (3.65-5.03)
[2019-09-12 05:24] LABS: INR 1.28 (0.87-1.13)
[2019-09-12] MEDS: INSULIN NPH, HUMAN 100 UNIT/1 ML SUB-Q SCH ×2 (08:37→17:00)
[2019-09-12] MEDS ORDERED: SODIUM CHLORIDE 0.9% 1000 ML 1,000 ML IV SCH (09:00)
[2019-09-12] MEDS ORDERED: ceFAZolin/Water 2 GM/20 ML 2 GM/20 ML SYRINGE IV NR (09:00)
--- NOTE | 2019-09-12 09:03 | Progress Note ---
Assessment and Plan Assessment and plan: [id number] -Monegas[place] female patient with significant history of hypertension ,diabetes mellitus, coronary artery disease status post PCI ,CVA and seizure disorder Presented to the emergency room with complaints of generalized weakness, work-up is consistent with acute renal failure, acute liver failure, severe rhabdomyolysis due to statin use, non-ST elevation OH, severe metabolic encephalopathy, multiple specialists are following the patient. * During the course of hospitalization patient was started on hemodialysis with noted improvement in rhabdomyolysis and also mental status. She continues to require hemodialysis. * Statin was discontinued as this was felt to be the inciting factor * Initially there was a discussion for speech evaluation which was done with recommendation for pured diet unfortunately the patient has not been tolerating this and requiring surgical consult to consider PEG placement per the family. Family also made the patient a DNR at this time. * Patient has a history of CVA with residual weakness although was ambulatory prior to this hospitalization. * Once nutritional pathways achieved and outpatient dialysis achieved patient can be discharged Important active issues: 1. Worsening renal function; nephrology initiated hemodialysis - need outpt setup 2. Severe rhabdomyolysis; with renal and liver failure due to statin, improving 3. Acute liver failure/transaminitis - trending down 4. Non-ST elevation OH; medical Mx 5. Acute encephalopathy, improved, placed on pureed diet 6. Poor p.o. intake: PEG placement recommended : Currently unable to tolerate PO. continue HD, check chxr considering low grade temp although resolved now. GI consulted for Tube feed placement, family again states that they want PEG Tube. Aspiration precautions, keep HOB elevated. 09/07/19: Noted to have significant blood loss with hemoglobin down to 6.2. 1 unit packed red blood cells transfused. Discontinued Plavix discussed with GI anticipate PEG placement soon. Family not available at this time will like to discuss possible hospice with them. Patient very lethargic remote markedly decompensated 09/08: Noted fever, ID consulted, Sepsis work up ongoing. Check labs, anticipating PEG placement in 2 days. Repeat hemoglobin still 6.7 will give additional unit of blood. We will also obtain a CT abdomen and pelvis with oral contrast to further evaluate for possible underlining ischemic colitis. 09/09: Patient still with repeated fever overnight. CT of the abdomen and pelvis with oral contrast was negative for ischemic colitis. Will check Doppler both legs to rule out DVT. Still awaiting to speak with family as none is present at this time. Attempts made to call discussed with case management. Sepsis work- up continues at this point there is no obvious source /5:Continue dialysis and Sepsis work up. BLOOD CULTURES positive and being rechecked to ensure clearance. Discussed with the patients family, they understand the severity of the illness and will discuss when discharged. 3/6. PEG placement done, starting tube feeds. Flagyl added. MRCP ordered to eval hepatobiliary source for E.faecalis bacteremia Gram Positive Cocci Bactermia ?Contaminate Persistent Fever. Not present on admission. No clear source /Acute kidney injury; likely ATN Worsening renal function, nephrology following - on HD now need outpt HD setup, s/p permcath placement by vascular /Rhabdomyolysis; likely from statin CpK trended upto ~28,000, placed on vigorous IV hydration w/o sig improvement - now on HD Monitor renal function, cont to Hold statin, low volume HCO3 drip, nephrology following, CPK now continues to trend down /Transaminitis; unknown etiology - trending down with normal ele Hepatitis panel negative, no stone in abdominal ultrasound + biliary sludge, no cholecystitis, dilated common bile duct GI following, unable to do MRI due to ICD Management supportive per GI /Metabolic encephalopathy; multifactorial - improved Uremia, transaminitis, acidosis, advanced age with underlying dementia Patient is lethargic but alert, Dobbhoff in place For medications and tube feeding cont supportive care, s/p repeat CT head showed no acute CVA speech eval ordered - recommended pureed diet with nectar thick liquid but pa tient failed /Metabolic acidosis: due acute kidney injury, mgt per neurology - placed on hCO3 drip, now also on HD /Severe hypokalemia; resolved Closely monitor electrolytes and replete as needed /Non-ST elevation OH; In the setting of acute renal failure and acute rhabdo could be NSTEMI 2 However patient has risk factors, coronary artery disease - status post PCI in 2013 monitore with Serial cardiac enzymes, antiplatelets, beta-blockers echocardiogram, Cardiology evaluated - no cardiac work-up intended /Coronary artery disease status post PCI /ICD in place; monitor, cardiology evaluation if needed /Dyslipidemia; hold statin in view of rhabdo/transaminitis /Type 2 diabetes mellitus; Accu-Chek sliding scale coverage ADA diet, insulin as needed /History of seizure disorder; seizure precautions Continue Keppra /Anemia-we will transfuse 1 unit packed red blood cell /Severe protein calorie malnutrition Dietitian consult /hypertension; moderate control Continue current antihypertensives and PRN medications --DVT prophylaxis; heparin renal dose --DNR -- Discussed with son Disposition; patient is appropriate for hospice. If the family does not accept hospice patient can be discharged to SNF after PEG tube placed which is scheduled on 09/11/2019 because the patient has been on Eliquis. Poor prognosis History Interval history: Patient seen and examined this morning. more awake today, no new complaints Hospitalist Physical - Physical exam Narrative exam: VITAL SIGNS: Reviewed. GENERAL: The patient appears chronically ill, lethargic, favors the left side. Very weak vital signs as documented. HEAD: No signs of head trauma. EYES: Pupils are equal. Extraocular motions intact. EARS: Hearing grossly intact. MOUTH: Left facial droop NECK: No adenopathy, no JVD. CHEST: Chest with diminished breath sounds bilaterally. No wheezes, rales, or rhonchi. CARDIAC: Regular rate and rhythm. S1 and S2, without murmurs, gallops, or rubs. VASCULAR: No Edema. Peripheral pulses normal and equal in all extremities. ABDOMEN: Soft, non tender and non distended. No rebound or guarding, and no masses palpated. Bowel Sounds normal. MUSCULOSKELETAL: Extremities without clubbing, cyanosis or edema. NEUROLOGIC EXAM: Awake but lethargic and oriented x 3. more strength. No focal sensory or strength deficits. Speech labored. Follows some commands but very lethargic unable to move lower extremities . PSYCHIATRIC: Mood unable to access SKIN: detail exam as documented in skin assessment - Constitutional Vitals: Temp Pulse Resp BP Pulse Ox 97.9 F 72 18 110/37 99 09/12/19 08:11 09/11/19 22:38 09/12/19 00:06 09/11/19 22:38 09/11/19 22:38 General appearance: Present: mild distress, well-nourished, other (Lethargic) Results - Labs CBC & Chem 7: 09/12/19 04:43 09/10/19 14:43 Labs: Laboratory Last Values WBC 15.6 K/mm3 (4.5-11.0) H 09/12/19 04:43 RBC 2.76 M/mm3 (3.65-5.03) L 09/12/19 04:43 Hgb 8.5 gm/dl (10.1-14.3) L 09/12/19 04:43 Hct 25.9 % (30.3-42.9) L 09/12/19 04:43 MCV 94 fl (79-97) 09/12/19 04:43 MCH 31 pg (28-32) 09/12/19 04:43 MCHC 33 % (30-34) 09/12/19 04:43 RDW 19.0 % (13.2-15.2) H 09/12/19 04:43 Plt Count 259 K/mm3 (140-440) 09/12/19 04:43 Lymph % (Auto) 6.4 % (13.4-35.0) L 09/12/19 04:43 [place] % (Auto) 7.0 % (0.0-7.3) 09/12/19 04:43 Eos % (Auto) 0.6 % (0.0-4.3) 09/12/19 04:43 Baso % (Auto) 0.2 % (0.0-1.8) 09/12/19 04:43 Lymph # 1.0 K/mm3 (1.2-5.4) L 09/12/19 04:43 [place] # 1.1 K/mm3 (0.0-0.8) H 09/12/19 04:43 Eos # 0.1 K/mm3 (0.0-0.4) 09/12/19 04:43 Baso # 0.0 K/mm3 (0.0-0.1) 09/12/19 04:43 Seg Neutrophils % 85.8 % (40.0-70.0) H 09/12/19 04:43 Seg Neutrophils # 13.4 K/mm3 (1.8-7.7) H 09/12/19 04:43 PT 16.2 Sec. (12.2-14.9) H 09/12/19 04:43 INR 1.28 (0.87-1.13) H 09/12/19 04:43 APTT 59.6 Sec. (24.2-36.6) H 08/20/19 23:09 Heparin Anti-Xa Level 0.18 U.I./ml (0.3-0.7) L 08/22/19 15:01 Sodium 139 mmol/L (137-145) 09/10/19 14:43 Potassium 3.6 mmol/L (3.6-5.0) 09/10/19 14:43 Chloride 97.5 mmol/L (98-107) L 09/10/19 14:43 Carbon Dioxide 22 mmol/L (22-30) 09/10/19 14:43 Anion Gap 23 mmol/L 09/10/19 14:43 BUN 72 mg/dL (7-17) H 09/10/19 14:43 Creatinine 3.7 mg/dL (0.7-1.2) H 09/10/19 14:43 Estimated GFR 14 ml/min 09/10/19 14:43 BUN/Creatinine Ratio 19 % 09/10/19 14:43 Glucose 206 mg/dL (65-100) H 09/10/19 14:43 POC Glucose 140 (70-105) H 09/12/19 06:48 Lactic Acid 1.60 mmol/L (0.7-2.0) 09/09/19 14:26 Calcium 8.4 mg/dL (8.4-10.2) 09/10/19 14:43 Magnesium 2.00 mg/dL (1.7-2.3) 08/25/19 07:01 Total Bilirubin 0.20 mg/dL (0.1-1.2) 09/09/19 10:30 Direct Bilirubin < 0.2 mg/dL (0-0.2) 08/31/19 09:47 Indirect Bilirubin 0.1 mg/dL 08/31/19 09:47 AST 21 units/L (5-40) 09/09/19 10:30 ALT 64 units/L (7-56) H 09/09/19 10:30 Alkaline Phosphatase 71 units/L (35-129) 09/09/19 10:30 Ammonia 48.0 umol/L (25-60) 09/05/19 09:07 Total Creatine Kinase 599 units/L (30-135) H 09/06/19 Unknown CK-MB (CK-2) 73.0 ng/mL (0.0-4.0) H 08/21/19 05:35 CK-MB (CK-2) Rel Index 0.3 (0-4) 08/21/19 05:35 Troponin T 0.196 ng/mL (0.00-0.029) H* 08/21/19 05:35 Total Protein 5.3 g/dL (6.3-8.2) L 09/09/19 10:30 Albumin 1.9 g/dL (3.9-5) L 09/09/19 10:30 Albumin/Globulin Ratio 0.6 % 09/09/19 10:30 Triglycerides 125 mg/dL (2-149) 08/20/19 06:11 Cholesterol 89 mg/dL (50-199) 08/20/19 06:11 LDL Cholesterol Direct 45 mg/dL (50-130) L 08/20/19 06:11 HDL Cholesterol 25 mg/dL (40-59) L 08/20/19 06:11 Cholesterol/HDL Ratio 3.56 % 08/20/19 06:11 Urine Color Red (Yellow) 08/20/19 07:38 Urine Turbidity Cloudy (Clear) 08/20/19 07:38 Urine pH 5.0 (5.0-7.0) 08/20/19 07:38 Ur Specific [place] 1.013 (1.003-1.030) 08/20/19 07:38 Urine Protein 100 mg/dl mg/dL (Negative) 08/20/19 07:38 Urine Glucose (UA) Neg mg/dL (Negative) 08/20/19 07:38 Urine Ketones Neg mg/dL (Negative) 08/20/19 07:38 Urine Blood Lg (Negative) 08/20/19 07:38 Urine Nitrite Neg (Negative) 08/20/19 07:38 Urine Bilirubin Neg (Negative) 08/20/19 07:38 Urine Urobilinogen < 2.0 mg/dL (<2.0) 08/20/19 07:38 Ur Leukocyte Esterase Sm (Negative) 08/20/19 07:38 Urine WBC (Auto) 25.0 /HPF (0.0-6.0) H 08/20/19 07:38 Urine RBC (Auto) 4.0 /HPF (0.0-6.0) 08/20/19 07:38 U Epithel Cells (Auto) 3.0 /HPF (0-13.0) 08/20/19 07:38 Urine Bacteria (Auto) 1+ /HPF (Negative) 08/20/19 07:38 Amorphous Crystals Few 08/20/19 07:38 Urine Creatinine 102.1 mg/dL (0.1-20.0) H 08/21/19 20:00 Protein/Creatinin Ratio 1.72 08/21/19 20:00 Urine Sodium 44 mmol/L 08/21/19 10:06 Urine Potassium 23.15 mmol/L 08/21/19 10:06 Urine Chloride 22.8 mmolL (110-250) L 08/21/19 10:06 Urine Total Protein 176 mg/dL (5-11.8) H 08/21/19 20:00 Random Vancomycin 11.5 ug/mL (0-40.0) 09/12/19 07:00 Urine Opiates Screen Presumptive positive 08/21/19 20:00 Urine Methadone Screen Presumptive negative 08/21/19 20:00 Acetaminophen < 5.0 ug/mL (10.0-30.0) L 08/22/19 04:34 Ur Barbiturates Screen Presumptive negative 08/21/19 20:00 Ur Phencyclidine Scrn Presumptive negative 08/21/19 20:00 Ur Amphetamines Screen Presumptive negative 08/21/19 20:00 U Benzodiazepines Scrn Presumptive positive 08/21/19 20:00 Urine Cocaine Screen Presumptive negative 08/21/19 20:00 U Marijuana (THC) Screen Presumptive negative 08/21/19 20:00 Drugs of Abuse Note Disclamer 08/21/19 20:00 Proteinase 3 (PR3) Ab <1.0 AI (<1.0) 08/21/19 08:51 Myeloperoxidase Ab <1.0 AI (<1.0) 08/21/19 08:51 Complement C3 136 mg/dL () 08/21/19 08:51 Complement C4 46 mg/dL () 08/21/19 08:51 Hepatitis A IgM Ab Non-reactive (NonReactive) 08/20/19 23:09 Hep Bs Antigen Non-reactive (Negative) 08/26/19 05:49 Hep B Core IgM Ab Non-reactive (NonReactive) 08/20/19 23:09 Hepatitis C Antibody Non-reactive (NonReactive) 08/26/19 05:49 Blood Type A POSITIVE 09/07/19 08:54 Antibody Screen Negative 09/07/19 08:54 Crossmatch See Detail 09/07/19 08:54 Active Medications - Current Medications Current Medications: Generic Name Dose Route Start Last Admin Trade Name Freq PRN Reason Stop Dose Admin Acetaminophen 650 mg 09/09/19 20:46 09/11/19 23:06 Tylenol PO 650 mg Q6H PRN Administration Pain, Mild (1-3) Alprazolam 0.5 mg 08/20/19 10:00 09/11/19 23:10 Xanax PO 0.5 mg BID SHARON Administration Lipase/Protease/Amylase 1 each 08/23/19 14:[address] 10,500 Unit FEEDTUBE PRN PRN For Clogged Feeding Tube Aspirin 325 mg 08/20/19 10:00 09/11/19 09:12 Ecotrin PO Not Given QDAY [facility] Carvedilol 3.125 mg 08/20/19 22:00 09/11/19 23:09 Coreg PO Not Given BID [facility] Epoetin Rahul 10,000 unit 08/25/19 09:32 09/11/19 11:55 Procrit IV 10,000 unit DESIRAE PRN Administration hemodialysis Famotidine 20 mg 09/01/19 10:00 09/11/19 09:13 Pepcid PO Not Given DAILY [facility] Heparin Sodium (Porcine) 5,000 unit 08/25/19 09:32 09/06/19 13:31 Heparin IV 5,000 unit DESIRAE PRN Administration hemodialysis Heparin Sodium (Porcine) 5,000 unit 09/08/19 22:00 09/11/19 23:08 Heparin SUB-Q Not Given Q12HR [facility] Hydralazine HCl 10 mg 08/20/19 09:00 08/26/19 20:15 Apresoline IV 10 mg Q4HR PRN Administration Hypertension Sodium Chloride 100 mls @ 999 mls/hr 09/02/19 09:30 Nacl 0.9% IV DESIRAE PRN Hypotension Cefepime HCl 1 gm in 100 mls @ 200 mls/hr 09/09/19 10:00 09/11/19 18:42 Cefepime/Ns 1 Gm/100 Ml IV 200 mls/hr Q24HR SHARON Administration Protocol Sodium Chloride 1,000 mls @ 50 mls/hr 09/12/19 09:00 Nacl 0.9% 1000 Ml IV DIRECT SHARON Cefazolin Sodium 2 gm in 20 mls @ 80 mls/hr 09/12/19 09:00 Ancef/Sterile Water 2 Gm/20 Ml IV 09/12/19 15:00 PREOP NR Protocol Insulin Human Lispro 0 unit 09/06/19 12:00 09/12/19 07:20 Humalog SUB-Q Not Given Q6HR SHARON Protocol Insulin Human NPH 15 unit 08/31/19 17:00 09/12/19 08:37 Humulin N SUB-Q Not Given BIDDIAB SHARON Levetiracetam 1,500 mg 08/23/19 22:00 09/11/19 23:07 Keppra FEEDTUBE 1,500 mg BID SHARON Administration Nitroglycerin 0.4 mg 08/20/19 19:00 Nitrostat SL .Q5MIN PRN Chest Pain Oxycodone/Acetaminophen 1 tab 08/21/19 20:37 09/09/19 07:16 Percocet 5/325 PO 1 tab Q6H PRN Administration Pain, Moderate (4-6) Simple Syrup 15 ml 08/23/19 14:47 Simple Syrup FEEDTUBE PRN PRN Hypoglycemia Simple Syrup 30 ml 08/23/19 14:47 Simple Syrup FEEDTUBE PRN PRN Hypoglycemia Sodium Bicarbonate 325 mg 08/23/19 14:47 Sodium Bicarbonate FEEDTUBE PRN PRN For Clogged Feeding Tube Nutrition/Malnutrition Assess - Dietary Evaluation Nutrition/Malnutrition Findings: Nutrition Notes Start: 08/22/19 10:11 Freq: Status: Active Protocol: Document 09/10/19 11:30 LM (Rec: 09/10/19 11:48 LM [id number]) Nutrition Notes Initial or Follow up Reassessment Current Diagnosis Acute Kidney Injury,CKD(stage I-IV),Coronary Artery Disease, Diabetes Other Pertinent Diagnosis GERD, hypokalemia, anemia, Current Diet Glucerna 1.2 at 50ml/hr and pureed Labs/Tests POC glucose 249 Pertinent Medications Humalog Solu-cortef Height 5 ft 5 in Weight 85.6 kg Silt Body Weight (kg) 56.81 BMI 31.4 Weight Status Overweight Subjective/Other Information Glucerna running at 50 ml/hr. Per RN pt is tolerating TF. RN stated pt does not open mouth for purred diet and is nonverbal. 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 No Is Patient Ambulatory and/or Out of Bed No REE-([facility]-confined to bed) [phone] Calculation Used for Recommendations Kcal/kg Additional Notes protein needs: 61 - 77g (0.8 - 1 g/kgBW) (JULIANO w/ no dialysis) fluid needs: 1 ml/kcal Nutrition Intervention Change Diet Order: Continue TF Nutrition Support: Glucerna 1.2 at 50 ml/hr Flush 100 ml q4h Kcal 1,440 Protein (gm) 72 Fluid (mL) 966 Goal #1 Meet at least 80% of energy and protein needs via TF Anticipated Discharge Needs: TF Follow-Up By: 09/17/19 Additional Comments F/U for TF tolerance
[2019-09-12] MEDS: CEFEPIME/NS 1 GM/100 ML 1 GM/100 ML BAG IV SCH (09:17)
[2019-09-12] MEDS: FAMOTIDINE 20 MG TAB PO SCH (10:00)
[2019-09-12] MEDS: ALPRAZolam 0.5 MG TAB PO SCH ×2 (10:00→22:21)
[2019-09-12] MEDS: levETIRAcetam 500 MG/5 ML ORAL LIQD FEEDTUBE SCH ×2 (10:00→22:21)
[2019-09-12] MEDS: ASPIRIN EC 325 MG TAB PO SCH (10:00)
[2019-09-12] MEDS: carvediloL 3.125 MG TAB PO SCH ×2 (10:00→22:21)
[2019-09-12] MEDS: HEPARIN 5,000 UNIT/1 ML VIAL SUB-Q SCH ×2 (10:00→22:20)
[2019-09-12] MEDS ORDERED: KETAMINE/STERILE WATER 50 MG/ML SYRINGE ONE (10:23)
[2019-09-12] MEDS ORDERED: fentaNYL 100 MCG/2 ML INJ ONE (10:23)
[2019-09-12] MEDS ORDERED: propofoL 200 MG/20 ML VIAL IV ONE (10:24)
--- NOTE | 2019-09-12 10:24 | Anesthesia Consultation ---
Anesthesia Consult and Med Hx - Airway Anesthetic Teeth Evaluation: Dentures ROM Head & Neck: Adequate Mental/Hyoid Distance: Adequate Mallampati Class: Class II Intubation Access Assessment: Good - Pulmonary Exam CTA: Yes - Cardiac Exam Cardiac Exam: RRR - Pre-Operative Health Status ASA Pre-Surgery Classification: ASA4 Proposed Anesthetic Plan: MAC - Pulmonary Hx Smoking: No Hx Asthma: No COPD: No Hx Pneumonia: No Hx Sleep Apnea: No - Cardiovascular System Hx Hypertension: Yes (hyperlipdemia) Hx Coronary Artery Disease: No Hx Heart Attack/AMI: Yes Hx Angina: No Hx Percutaneous Transluminal Coronary Angioplasty (PTCA): No Hx Pacemaker: Yes Hx Internal Defibrillator: No Hx Valvular Heart Disease: No Hx Heart Murmur: Yes Hx Peripheral Vascular Disease: Yes (PE 01/2013; anticoagulation with Eliquis - on hold per cardiology) - Central Nervous System Hx Neuromuscular Disorder: Yes (Right sided weakness) Hx Seizures: No CVA: Yes (4 previous; latest one this Year 2013, 2 months ago; some Right weakness) Hx Psychiatric Problems: Yes (anxiety) - Gastrointestinal Hx Ulcer: No Hx Gastroesophageal Reflux Disease: Yes - Endocrine Hx Renal Disease: No Hx End Stage Renal Disease: No Hx Cirrhosis: No Hx Liver Disease: No Hx Insulin Dependent Diabetes: Yes Hx Non-Insulin Dependent Diabetes: Yes Hx Hypothyroidism: No Hx Hyperthyroidism: No - Hematic Hx Anemia: Yes (H/H: 8.8/27.4) - Other Systems Hx Alcohol Use: No Hx Substance Use: No Hx Cancer: No Hx Obesity: Yes (BMI 55.7)
--- NOTE | 2019-09-12 10:24 | Anesthesia Day of Surgery ---
Anesthesia Day of Surgery - Day of Surgery Patient Examined: Yes Patient H&P Reviewed: Yes Patient is NPO: Yes
[2019-09-12] MEDS ORDERED: ceFAZolin/Water 2 GM/20 ML 0 GM/0 ML SYRINGE IV ONE (10:25)
[2019-09-12] MEDS ORDERED: LIDOCAINE MPF (2%) 20 MG/1 ML VIAL 5 ML ONE (10:27)
[2019-09-12] MEDS ORDERED: ONDANSETRON 4 MG/2 ML INJ ONE (10:28)
--- NOTE | 2019-09-12 11:50 | Operative Report ---
Operative Report Operative Report: Date of procedure: 09/12/2019 Pre procedure diagnosis: dysphagia, failure to thrive Post procedure diagnosis: same Procedure: Esophagogastroduodenoscopy with percutaneous endoscopic gastrostomy Endoscopist: Ad Obrien MD (Jenny) Medications: Per anesthesia- see separate records for details./ Ancef 2 gm IV Complications: none Estimated blood loss: None After careful discussion of the nature and purpose of the procedure, details of the technique, risks, benefits and alternatives consent was obtained from patient's family. The patient was placed in the left lateral decubitus position and medicated by anesthesia- see separate records for details. The tip of the olympus video upper scope was passed per orum under direct view through the mouth and into the esophagus, stomach and duodenum. The scope was advanced to the second portion of the duodenum without difficulty. The second portion of the duodenum was normal. The bulb revealed normal mucosa. The scope was withdrawn back into the stomach and the stomach gently insufflated with air. The antrum revealed normal mucosa. The scope was then retroflexed and partially withdrawn to inspect the proximal stomach. The cardia, fundus and body were normal. The stomach was insufflated and a suitable gastrostomy site selected by transillumination and percutaneous compression demonstrating good opposition of the stomach and abdominal wall. The abdomen was prepped and draped in sterile fashion and 1% lidocaine instilled at the optimal site. A small incision was made and the tissue spread with sterile hemostats. The needle and catheter were inserted percutaneously into the stomach without difficulty under direct view. The needle was withdrawn followed by insertion of the guidewire through the catheter. The guidewire was grasped by the snare and positioned by withdrawal of the scope. A [place] [employer] 20 gauge gastrostomy tube was pulled into place from the abdominal side of the wire to a snug fit. The external bumper was applied and the site again dressed in sterile fashion. The scope was then withdrawn in the forward view. The EG junction was at 40 cm. The esophagus revealed normal mucosa throughout. . The procedure was well tolerated and the patient was observed in the GI recovery unit. IMPRESSION: S/p Percutaneous Endoscopic gastrostomy. Plan: Can start tube feeds in 6 hours. Keep head of the bed elevated. Ad Obrien MD (Jenny) [facility]
--- NOTE | 2019-09-12 12:45 | Post Anesthesia Evaluation ---
- Post Anesthesia Evaluation Patient Participated: Yes Airway Patent: Yes Stable Respiratory Function: Yes Nausea/Vomiting: No Temp > 96.8F: Yes Pain Manageable: Yes Adequeate Hydration: Yes Anesthesia Complications: No
--- NOTE | 2019-09-12 12:57 | Progress Note ---
Assessment and Plan Cultures: 08/20/2019 blood culture: No growth 08/20/2019 urine culture: No growth 09/09/2019 blood culture: E.faecalis A/P: 84-year-old female with hypertension, diabetes mellitus, coronary artery disease, indwelling AICD was admitted to the hospital on 08/20/2019 with generalized weakness. Upon evaluation, she was found to have no leukocytosis or fever. Labs showed acute renal failure along with transaminase elevation along with CK of 20K. On 08/25/2019, patient underwent right IJ PermCath insertion and was started on dialysis by nephrology, now with: #Persistent high fevers: Not present on admission. Patient x-ray does not show any obvious pneumonia. CT with b/l pleural effusions, no intra-abdominal process. Blood cultures: 07/12 E.faecalis. #E.faecalis bacteremia: continue abx. Follow up ID and susceptibility. Recheck blood cultures. Suspect hepatobiliary source given RUQ US findings of CBD dilatation. #Acute encephalopathy: Multifactorial. #Acute renal failure: Now requiring dialysis. Renally dose antibiotics. #Elevated LFTs: Likely related to rhabdomyolysis: Trending down. Recs: Continue empiric IV cefepime and vancomycin ordered, renally adjusted. Day 4 added Flagyl Follow up ID and susceptibility and repeat blood cultures MRCP ordered to eval hepatobiliary source for E.faecalis bacteremia d/w Dr. Villaseñor. Magda Ybarra MD, FACP [facility] ([facility]) C: [phone] O: [phone] F: [phone] Subjective Date of service: 09/12/19 Principal diagnosis: PEG tube placement Interval history: Low grade fevers continue. Remains unresponsive, got PEG tube placed today. Objective - Exam Narrative Exam: Physical Exam: Constitutional: drowsy, non verbal, moaning Head, Ears, Nose: Normocephalic, atraumatic. External ears, nose normal Eyes: Conjunctivae/corneas clear. No icterus. No ptosis. Neck: Supple, no meningeal signs Oral: unable to examine Cardiovascular: S1, S2 normal. Respiratory: clear, no crackles GI: Soft, bowel sounds normal. No peritoneal signs. PEG + Musculoskeletal: No pedal edema, no cyanosis. HD cath + Skin: No rash or abscess Hem/Lymphatic: No palpable cervical or supraclavicular nodes. No lymphangitis Psych: no agitation Neurological: comatose, non verbal, does not follow any commands - Constitutional Vitals: Vital Signs Temp Pulse Resp BP Pulse Ox 99.1 F 70 15 123/45 97 09/12/19 11:48 09/12/19 12:20 09/12/19 12:20 09/12/19 12:20 09/12/19 12:20 Temperature -Last 24 Hours Temperature 99.1 F Temperature 99.4 F Temperature 99.4 F Temperature 97.9 F Temperature 100.6 F Temperature 99.9 F - Labs CBC & Chem 7: 09/12/19 04:43 09/10/19 14:43 Labs: Abnormal lab results 09/11/19 09/11/19 09/12/19 Range/Units 13:05 16:26 00:02 WBC (4.5-11.0) K/mm3 RBC (3.65-5.03) M/mm3 Hgb (10.1-14.3) gm/dl Hct (30.3-42.9) % RDW (13.2-15.2) % Lymph % (Auto) (13.4-35.0) % Lymph # (1.2-5.4) K/mm3 [place] # (0.0-0.8) K/mm3 Seg Neutrophils % (40.0-70.0) % Seg Neutrophils # (1.8-7.7) K/mm3 PT (12.2-14.9) Sec. INR (0.87-1.13) POC Glucose 163 H 127 H 186 H (70-105) 09/12/19 09/12/19 09/12/19 Range/Units 04:43 04:43 06:48 WBC 15.6 H (4.5-11.0) K/mm3 RBC 2.76 L (3.65-5.03) M/mm3 Hgb 8.5 L (10.1-14.3) gm/dl Hct 25.9 L (30.3-42.9) % RDW 19.0 H (13.2-15.2) % Lymph % (Auto) 6.4 L (13.4-35.0) % Lymph # 1.0 L (1.2-5.4) K/mm3 [place] # 1.1 H (0.0-0.8) K/mm3 Seg Neutrophils % 85.8 H (40.0-70.0) % Seg Neutrophils # 13.4 H (1.8-7.7) K/mm3 PT 16.2 H (12.2-14.9) Sec. INR 1.28 H (0.87-1.13) POC Glucose 140 H (70-105) 09/12/19 Range/Units 10:29 WBC (4.5-11.0) K/mm3 RBC (3.65-5.03) M/mm3 Hgb (10.1-14.3) gm/dl Hct (30.3-42.9) % RDW (13.2-15.2) % Lymph % (Auto) (13.4-35.0) % Lymph # (1.2-5.4) K/mm3 [place] # (0.0-0.8) K/mm3 Seg Neutrophils % (40.0-70.0) % Seg Neutrophils # (1.8-7.7) K/mm3 PT (12.2-14.9) Sec. INR (0.87-1.13) POC Glucose 195 H (70-105)
--- NOTE | 2019-09-12 13:59 | Progress Note ---
Assessment and Plan - Patient Problems (1) Acute renal failure Current Visit: Yes Status: Acute Plan to address problem: Acute tubular necrosis secondary to rhabdomyolysis. no significant renal recovery seen. Cont temporary HD on TTS schedule, outpatient arrangement as per case management. s/p PEG placement (2) Acute renal failure due to rhabdomyolysis Current Visit: Yes Status: Acute Plan to address problem: Probably statin induced. Statin has been stopped. CPK is improving. (3) Hypertensive chronic kidney disease with stage 1 through stage 4 chronic kidney disease, or unspecified chronic kidney disease Current Visit: Yes Status: Acute Plan to address problem: monitor BP on current meds (4) Type 2 diabetes mellitus with diabetic chronic kidney disease Current Visit: Yes Status: Chronic Plan to address problem: DM management per primary attending. (5) Metabolic acidosis Current Visit: Yes Status: Acute Plan to address problem: improved with HD (6) Transaminasemia Current Visit: Yes Status: Acute Plan to address problem: Liver function improving. Follow-up liver function test off of statin Subjective Date of service: 09/12/19 Principal diagnosis: PEG tube placement Interval history: Pt awake, alert, in no acute respiratory distress. Objective - Vital Signs Vital signs: Vital Signs - 12hr 09/12/19 09/12/19 09/12/19 06:15 08:11 10:00 Temperature 99.0 F 97.9 F 99.4 F Pulse Rate 71 72 Respiratory 18 29 H Rate Blood Pressure 103/42 123/49 O2 Sat by Pulse 99 95 Oximetry 09/12/19 09/12/19 09/12/19 10:02 11:48 12:05 Temperature 99.4 F 99.1 F Pulse Rate 72 73 71 Respiratory 29 H 21 20 Rate Blood Pressure 123/49 109/40 124/46 O2 Sat by Pulse 95 98 100 Oximetry 09/12/19 09/12/19 09/12/19 12:20 13:14 13:37 Temperature 97.8 F Pulse Rate 70 Respiratory 15 16 Rate Blood Pressure 123/45 134/49 O2 Sat by Pulse 97 98 Oximetry - General Appearance General appearance: well-developed, well-nourished, appears stated age EENT: ATNC, PERRL, mucous membranes moist Neck: no JVD Respiratory: Present: Clear to Ascultation Cardiology: regular, S1S2 Gastrointestinal: normoactive bowel sounds Integumentary: no rash, other (no edema ) Neurologic: no focal deficit, alert and oriented x3, strength 5/5, CN 3-12 intact Psychiatric: mood/affect appropriate, cooperative - Lab 09/12/19 04:43 09/10/19 14:43 Most recent lab results Calcium 8.4 mg/dL (8.4-10.2) 09/10/19 14:43 Magnesium 2.00 mg/dL (1.7-2.3) 08/25/19 07:01 Urine Creatinine 102.1 mg/dL (0.1-20.0) H 08/21/19 20:00 Urine Sodium 44 mmol/L 08/21/19 10:06 Urine Total Protein 176 mg/dL (5-11.8) H 08/21/19 20:00 Medications & Allergies - Medications Allergies/Adverse Reactions: Allergies No Known Allergies Allergy (Verified 11/29/13 10:39) Home Medications: Home Medications Medication Instructions Recorded Confirmed Last Taken Type ALPRAZolam [Xanax TAB] 0.5 mg PO BID 03/21/13 08/20/19 01/29/14 History Amlodipine Bes/Olmesartan Med 2.5 mg PO QDAY 03/21/13 08/20/19 1 Day Ago History [Shekhar 10-20 mg] ~08/19/19 Glimepiride [Amaryl] 2 mg PO QAM 03/21/13 08/20/19 1 Day Ago History ~08/19/19 2 mg Losartan [Cozaar] 25 mg PO QDAY 03/21/13 08/20/19 1 Day Ago History ~08/19/19 25 mg Atorvastatin [Lipitor] 40 mg PO QHS 11/13/13 08/20/19 01/29/14 History Oxycodone HCl/Acetaminophen 1 each PO Q6HR PRN #20 tablet 11/29/13 08/20/19 01/30/14 Rx [Percocet 7.5/325 mg] Aspirin EC [Ecotrin] 325 mg PO QDAY #30 tablet 02/08/14 08/20/19 Unknown Rx Clopidogrel [Plavix] 75 mg PO QDAY #30 tablet 02/08/14 08/20/19 Unknown Rx Pantoprazole [Protonix TAB] 40 mg PO QDAY #30 tablet 02/08/14 08/20/19 1 Day Ago Rx ~08/19/19 40 mg carvediloL [Coreg] 3.125 mg PO BID #60 tablet 02/08/14 08/20/19 Unknown Rx levETIRAcetam [Keppra TAB] 1,500 mg PO BID 08/20/19 08/20/19 Unknown History Citalopram [celeXA] 40 mg PO QDAY 08/22/19 08/22/19 Unknown History Active Medications: Generic Name Dose Route Start Last Admin Trade Name Freq PRN Reason Stop Dose Admin Acetaminophen 650 mg 09/09/19 20:46 09/11/19 23:06 Tylenol PO 650 mg Q6H PRN Administration Pain, Mild (1-3) Alprazolam 0.5 mg 08/20/19 10:00 09/11/19 23:10 Xanax PO 0.5 mg BID SHARON Administration Lipase/Protease/Amylase 1 each 08/23/19 14:[address] 10,500 Unit FEEDTUBE PRN PRN For Clogged Feeding Tube Aspirin 325 mg 08/20/19 10:00 09/11/19 09:12 Ecotrin PO Not Given QDAY [facility] Carvedilol 3.125 mg 08/20/19 22:00 09/11/19 23:09 Coreg PO Not Given BID [facility] Epoetin Rahul 10,000 unit 08/25/19 09:32 09/11/19 11:55 Procrit IV 10,000 unit DESIRAE PRN Administration hemodialysis Famotidine 20 mg 09/01/19 10:00 09/11/19 09:13 Pepcid PO Not Given DAILY [facility] Heparin Sodium (Porcine) 5,000 unit 08/25/19 09:32 09/06/19 13:31 Heparin IV 5,000 unit DESIRAE PRN Administration hemodialysis Heparin Sodium (Porcine) 5,000 unit 09/08/19 22:00 09/11/19 23:08 Heparin SUB-Q Not Given Q12HR [facility] Hydralazine HCl 10 mg 08/20/19 09:00 08/26/19 20:15 Apresoline IV 10 mg Q4HR PRN Administration Hypertension Sodium Chloride 100 mls @ 999 mls/hr 09/02/19 09:30 Nacl 0.9% IV DESIRAE PRN Hypotension Cefepime HCl 1 gm in 100 mls @ 200 mls/hr 09/09/19 10:00 09/12/19 09:17 Cefepime/Ns 1 Gm/100 Ml IV 200 mls/hr Q24HR SHARON Administration Protocol Sodium Chloride 1,000 mls @ 50 mls/hr 09/12/19 09:00 09/12/19 10:23 Nacl 0.9% 1000 Ml IV 50 mls/hr DIRECT SHARON Administration Cefazolin Sodium 2 gm in 20 mls @ 80 mls/hr 09/12/19 09:00 Ancef/Sterile Water 2 Gm/20 Ml IV 09/12/19 15:00 PREOP NR Protocol Vancomycin HCl 1 gm in 250 mls @ 167.007 mls/hr 09/13/19 22:00 Vancomycin/Ns 1 Gm/250 Ml IV 09/13/19 23:29 ONCE ONE Insulin Human Lispro 0 unit 09/06/19 12:00 09/12/19 07:20 Humalog SUB-Q Not Given Q6HR SH[facility]ON Protocol Insulin Human NPH 15 unit 08/31/19 17:00 09/12/19 08:37 Humulin N SUB-Q Not Given BIDDIAB [facility] Levetiracetam 1,500 mg 08/23/19 22:00 09/11/19 23:07 Keppra FEEDTUBE 1,500 mg BID SHARON Administration Nitroglycerin 0.4 mg 08/20/19 19:00 Nitrostat SL .Q5MIN PRN Chest Pain Oxycodone/Acetaminophen 1 tab 08/21/19 20:37 09/09/19 07:16 Percocet 5/325 PO 1 tab Q6H PRN Administration Pain, Moderate (4-6) Simple Syrup 15 ml 08/23/19 14:47 Simple Syrup FEEDTUBE PRN PRN Hypoglycemia Simple Syrup 30 ml 08/23/19 14:47 Simple Syrup FEEDTUBE PRN PRN Hypoglycemia Sodium Bicarbonate 325 mg 08/23/19 14:47 Sodium Bicarbonate FEEDTUBE PRN PRN For Clogged Feeding Tube
[2019-09-12] MEDS: metroNIDAZOLE/NS 500 MG/100 ML 500 MG/100 ML BAG IV SCH ×2 (15:40→22:21)
[2019-09-12] MEDS: oxyCODONE /ACETAMINOPHEN 5-325MG TAB PO PRN (23:36)
[2019-09-13] MEDS: metroNIDAZOLE/NS 500 MG/100 ML 500 MG/100 ML BAG IV SCH (05:07)
[2019-09-13] MEDS: INSULIN LISPRO 100 UNIT/ML SUB-Q SCH ×4 (06:06→19:20)
--- NOTE | 2019-09-13 08:15 | Progress Note ---
Assessment and Plan - Patient Problems (1) Acute renal failure Current Visit: Yes Status: Acute Plan to address problem: Acute tubular necrosis secondary to rhabdomyolysis. no significant renal recovery seen. Cont temporary HD on TTS schedule, outpatient arrangement as per case management. s/p PEG placement, awaiting DEWEY placement (2) Acute renal failure due to rhabdomyolysis Current Visit: Yes Status: Acute Plan to address problem: Probably statin induced. Statin has been stopped. CPK is improving. (3) Hypertensive chronic kidney disease with stage 1 through stage 4 chronic kidney disease, or unspecified chronic kidney disease Current Visit: Yes Status: Acute Plan to address problem: monitor BP on current meds (4) Type 2 diabetes mellitus with diabetic chronic kidney disease Current Visit: Yes Status: Chronic Plan to address problem: DM management per primary attending. (5) Metabolic acidosis Current Visit: Yes Status: Acute Plan to address problem: improved with HD (6) Transaminasemia Current Visit: Yes Status: Acute Subjective Date of service: 09/13/19 Principal diagnosis: PEG tube placement Interval history: Pt awake, alert, in no acute respiratory distress. Objective - Vital Signs Vital signs: Vital Signs - 12hr 09/12/19 09/12/19 09/13/19 22:21 23:01 04:53 Temperature 98.6 F 98.2 F Pulse Rate 70 71 70 Respiratory 20 20 Rate Blood Pressure 138/50 138/55 O2 Sat by Pulse 99 99 Oximetry - General Appearance General appearance: well-developed, well-nourished, appears stated age EENT: ATNC, PERRL, mucous membranes moist Neck: no JVD Respiratory: Present: Clear to Ascultation Cardiology: regular, S1S2 Gastrointestinal: normoactive bowel sounds Integumentary: no rash, other (no edema ) Neurologic: no focal deficit, strength 5/5, CN 3-12 intact Psychiatric: mood/affect appropriate, cooperative - Lab 09/12/19 04:43 09/10/19 14:43 Most recent lab results Calcium 8.4 mg/dL (8.4-10.2) 09/10/19 14:43 Magnesium 2.00 mg/dL (1.7-2.3) 08/25/19 07:01 Urine Creatinine 102.1 mg/dL (0.1-20.0) H 08/21/19 20:00 Urine Sodium 44 mmol/L 08/21/19 10:06 Urine Total Protein 176 mg/dL (5-11.8) H 08/21/19 20:00 Medications & Allergies - Medications Allergies/Adverse Reactions: Allergies No Known Allergies Allergy (Verified 11/29/13 10:39) Home Medications: Home Medications Medication Instructions Recorded Confirmed Last Taken Type ALPRAZolam [Xanax TAB] 0.5 mg PO BID 03/21/13 08/20/19 01/29/14 History Amlodipine Bes/Olmesartan Med 2.5 mg PO QDAY 03/21/13 08/20/19 1 Day Ago History [Shekhar 10-20 mg] ~08/19/19 Glimepiride [Amaryl] 2 mg PO QAM 03/21/13 08/20/19 1 Day Ago History ~08/19/19 2 mg Losartan [Cozaar] 25 mg PO QDAY 03/21/13 08/20/19 1 Day Ago History ~08/19/19 25 mg Atorvastatin [Lipitor] 40 mg PO QHS 11/13/13 08/20/19 01/29/14 History Oxycodone HCl/Acetaminophen 1 each PO Q6HR PRN #20 tablet 11/29/13 08/20/19 01/30/14 Rx [Percocet 7.5/325 mg] Aspirin EC [Ecotrin] 325 mg PO QDAY #30 tablet 02/08/14 08/20/19 Unknown Rx Clopidogrel [Plavix] 75 mg PO QDAY #30 tablet 02/08/14 08/20/19 Unknown Rx Pantoprazole [Protonix TAB] 40 mg PO QDAY #30 tablet 02/08/14 08/20/19 1 Day Ago Rx ~08/19/19 40 mg carvediloL [Coreg] 3.125 mg PO BID #60 tablet 02/08/14 08/20/19 Unknown Rx levETIRAcetam [Keppra TAB] 1,500 mg PO BID 08/20/19 08/20/19 Unknown History Citalopram [celeXA] 40 mg PO QDAY 08/22/19 08/22/19 Unknown History Active Medications: Generic Name Dose Route Start Last Admin Trade Name Freq PRN Reason Stop Dose Admin Acetaminophen 650 mg 09/09/19 20:46 09/11/19 23:06 Tylenol PO 650 mg Q6H PRN Administration Pain, Mild (1-3) Alprazolam 0.5 mg 08/20/19 10:00 09/12/19 22:21 Xanax PO 0.5 mg BID SHARON Administration Lipase/Protease/Amylase 1 each 08/23/19 14:[address] 10,500 Unit FEEDTUBE PRN PRN For Clogged Feeding Tube Aspirin 325 mg 08/20/19 10:00 09/12/19 10:00 Ecotrin PO Not Given QDAY [facility] Carvedilol 3.125 mg 08/20/19 22:00 09/12/19 22:21 Coreg PO 3.125 mg BID SHARON Administration Epoetin Rahul 10,000 unit 08/25/19 09:32 09/11/19 11:55 Procrit IV 10,000 unit DESIRAE PRN Administration hemodialysis Famotidine 20 mg 09/01/19 10:00 09/12/19 10:00 Pepcid PO Not Given DAILY [facility] Heparin Sodium (Porcine) 5,000 unit 08/25/19 09:32 09/06/19 13:31 Heparin IV 5,000 unit DESIRAE PRN Administration hemodialysis Heparin Sodium (Porcine) 5,000 unit 09/08/19 22:00 09/12/19 22:20 Heparin SUB-Q 5,000 unit Q12HR SH[facility]ON Administration Hydralazine HCl 10 mg 08/20/19 09:00 08/26/19 20:15 Apresoline IV 10 mg Q4HR PRN Administration Hypertension Sodium Chloride 100 mls @ 999 mls/hr 09/02/19 09:30 Nacl 0.9% IV DESIRAE PRN Hypotension Cefepime HCl 1 gm in 100 mls @ 200 mls/hr 09/09/19 10:00 09/12/19 09:17 Cefepime/Ns 1 Gm/100 Ml IV 200 mls/hr Q24HR [facility]ON Administration Protocol Sodium Chloride 1,000 mls @ 50 mls/hr 09/12/19 09:00 09/12/19 10:23 Nacl 0.9% 1000 Ml IV 50 mls/hr DIRECT SH[facility]ON Administration Vancomycin HCl 1 gm in 250 mls @ 167.007 mls/hr 09/13/19 22:00 Vancomycin/Ns 1 Gm/250 Ml IV 09/13/19 23:29 ONCE ONE Metronidazole 500 mg in 100 mls @ 100 mls/hr 09/12/19 15:00 09/13/19 05:07 Flagyl 500 Mg/100 Ml IV 100 mls/hr Q8HR [facility]ON Administration Protocol Insulin Human Lispro 0 unit 09/06/19 12:00 09/13/19 06:06 Humalog SUB-Q Not Given Q6HR [facility] Protocol Insulin Human NPH 15 unit 08/31/19 17:00 09/12/19 17:00 Humulin N SUB-Q Not Given BIDDIAB [facility] Levetiracetam 1,500 mg 08/23/19 22:00 09/12/19 22:21 Keppra FEEDTUBE 1,500 mg BID SHARON Administration Nitroglycerin 0.4 mg 08/20/19 19:00 Nitrostat SL .Q5MIN PRN Chest Pain Oxycodone/Acetaminophen 1 tab 08/21/19 20:37 09/12/19 23:36 Percocet 5/325 PO 1 tab Q6H PRN Administration Pain, Moderate (4-6) Simple Syrup 15 ml 08/23/19 14:47 Simple Syrup FEEDTUBE PRN PRN Hypoglycemia Simple Syrup 30 ml 08/23/19 14:47 Simple Syrup FEEDTUBE PRN PRN Hypoglycemia Sodium Bicarbonate 325 mg 08/23/19 14:47 Sodium Bicarbonate FEEDTUBE PRN PRN For Clogged Feeding Tube
[2019-09-13] MEDS ORDERED: SODIUM BICARBONATE 325 MG TAB FEEDTUBE PRN (09:33)
[2019-09-13] MEDS ORDERED: LIPASE 10,500/PROTEASE 25,000/AMYLASE 43,750 (UNITS) DR CAP FEEDTUBE PRN (09:33)
[2019-09-13] MEDS ORDERED: SIMPLE SYRUP 15 ML FEEDTUBE PRN ×2 (09:33)
[2019-09-13] MEDS: INSULIN NPH, HUMAN 100 UNIT/1 ML SUB-Q SCH ×2 (09:50→17:27)
--- NOTE | 2019-09-13 11:15 | Progress Note ---
Assessment and Plan Cultures: 08/20/2019 blood culture: No growth 08/20/2019 urine culture: No growth 09/09/2019 blood culture: E.faecalis 09/11/2019 blood culture: no growth A/P: 84-year-old female with hypertension, diabetes mellitus, coronary artery disease, indwelling AICD was admitted to the hospital on 08/20/2019 with generalized weakness. Upon evaluation, she was found to have no leukocytosis or fever. Labs showed acute renal failure along with transaminase elevation along with CK of 20K. On 08/25/2019, patient underwent right IJ PermCath insertion and was started on dialysis by nephrology, now with: #Persistent high fevers: Not present on admission. Patient x-ray does not show any obvious pneumonia. CT with b/l pleural effusions, no intra-abdominal process. Blood cultures: 07/12 E.faecalis. #E.faecalis bacteremia: 07/12 bottles. Continue abx. Follow up ID and susceptibility. Recheck blood cultures. Suspect hepatobiliary source given RUQ US findings of CBD dilatation. TTE showed no obvious vegetations, repeat blood cultures negative. #Acute encephalopathy: Multifactorial. #Acute renal failure: Now requiring dialysis. Renally dose antibiotics. #Elevated LFTs: Likely related to rhabdomyolysis: Trending down. Recs: MRCP unable to be done due to indwelling AICD. Hence HIDA scan ordered Abx streamlined to IV Zosyn alone (will cover Enterococcus) d/w Dr. Villaseñor. Magda Ybarra MD, FACP [facility] ([facility]) C: [phone] O: [phone] F: [phone] Subjective Date of service: 09/13/19 Principal diagnosis: PEG tube placement Interval history: Afebrile. Remains unresponsive. Family member at bedside. Unable to get MRI due to indwelling AICD. Objective - Exam Narrative Exam: Physical Exam: Constitutional: comatose, non verbal, Head, Ears, Nose: Normocephalic, atraumatic. External ears, nose normal Eyes: Conjunctivae/corneas clear. No icterus. No ptosis. Neck: Supple, no meningeal signs Oral: unable to examine Cardiovascular: S1, S2 normal. No AICD tenderness Respiratory: clear, no crackles GI: Soft, bowel sounds normal. No peritoneal signs. PEG + Musculoskeletal: No pedal edema, no cyanosis. HD cath + Skin: No rash or abscess Hem/Lymphatic: No palpable cervical or supraclavicular nodes. No lymphangitis Psych: no agitation Neurological: comatose, non verbal, does not follow any commands - Constitutional Vitals: Vital Signs Temp Pulse Resp BP Pulse Ox 98.2 F 70 20 138/55 100 09/13/19 04:53 09/13/19 04:53 09/13/19 04:53 09/13/19 04:53 09/13/19 10:05 Temperature -Last 24 Hours Temperature 98.2 F Temperature 98.6 F Temperature 99.0 F Temperature 97.8 F Temperature 99.1 F - Labs CBC & Chem 7: 09/12/19 04:43 09/10/19 14:43 Labs: Abnormal lab results 09/12/19 09/12/19 Range/Units 13:12 17:50 POC Glucose 109 H 154 H (70-105)
[2019-09-13] MEDS: levETIRAcetam 500 MG/5 ML ORAL LIQD FEEDTUBE SCH ×2 (11:29→21:22)
[2019-09-13] MEDS: FAMOTIDINE 20 MG TAB PO SCH (11:29)
[2019-09-13] MEDS: CEFEPIME/NS 1 GM/100 ML 1 GM/100 ML BAG IV SCH ×2 (11:30→11:34)
[2019-09-13] MEDS: carvediloL 3.125 MG TAB PO SCH ×2 (11:30→21:23)
[2019-09-13] MEDS: ALPRAZolam 0.5 MG TAB PO SCH ×2 (11:30→21:22)
[2019-09-13] MEDS: ASPIRIN EC 325 MG TAB PO SCH (11:32)
--- NOTE | 2019-09-13 11:50 | Progress Note ---
Assessment and Plan Assessment and plan: [id number] -[place] female patient with significant history of hypertension ,diabetes mellitus, coronary artery disease status post PCI ,CVA and seizure disorder Presented to the emergency room with complaints of generalized weakness, work-up is consistent with acute renal failure, acute liver failure, severe rhabdomyolysis due to statin use, non-ST elevation [place], severe metabolic encephalopathy, multiple specialists are following the patient. * During the course of hospitalization patient was started on hemodialysis with noted improvement in rhabdomyolysis and also mental status. She continues to require hemodialysis. * Statin was discontinued as this was felt to be the inciting factor * Initially there was a discussion for speech evaluation which was done with recommendation for pured diet unfortunately the patient has not been tolerating this and requiring surgical consult to consider PEG placement per the family. Family also made the patient a DNR at this time. * Patient has a history of CVA with residual weakness although was ambulatory prior to this hospitalization. * Once nutritional pathways achieved and outpatient dialysis achieved patient can be discharged Important active issues: 1. Worsening renal function; nephrology initiated hemodialysis - need outpt setup 2. Severe rhabdomyolysis; with renal and liver failure due to statin, improving 3. Acute liver failure/transaminitis - trending down 4. Non-ST elevation NJ; medical Mx 5. Acute encephalopathy, improved, placed on pureed diet 6. Poor p.o. intake: PEG placement recommended : Currently unable to tolerate PO. continue HD, check chxr considering low grade temp although resolved now. GI consulted for Tube feed placement, family again states that they want PEG Tube. Aspiration precautions, keep HOB elevated. 09/07/19: Noted to have significant blood loss with hemoglobin down to 6.2. 1 unit packed red blood cells transfused. Discontinued Plavix discussed with GI anticipate PEG placement soon. Family not available at this time will like to discuss possible hospice with them. Patient very lethargic remote markedly decompensated 09/08: Noted fever, ID consulted, Sepsis work up ongoing. Check labs, anticipating PEG placement in 2 days. Repeat hemoglobin still 6.7 will give additional unit of blood. We will also obtain a CT abdomen and pelvis with oral contrast to further evaluate for possible underlining ischemic colitis. 09/09: Patient still with repeated fever overnight. CT of the abdomen and pelvis with oral contrast was negative for ischemic colitis. Will check Doppler both legs to rule out DVT. Still awaiting to speak with family as none is present at this time. Attempts made to call discussed with case management. Sepsis work- up continues at this point there is no obvious source 09/10:Continue dialysis and Sepsis work up. BLOOD CULTURES positive and being rechecked to ensure clearance. Discussed with the patients family, they understand the severity of the illness and will discuss when discharged. 09/11. PEG placement done, starting tube feeds. Flagyl added. MRCP ordered to eval hepatobiliary source for E.faecalis bacteremia 09/13/19: HIDA rather than MRI as patient has Pacemaker. Family advised. still awaiting dialysis chair time. Efaecalis may have been a contaminant as other labs Gram Positive Cocci Bactermia ?Contaminate Persistent Fever. Not present on admission. No clear source /Acute kidney injury; likely ATN Worsening renal function, nephrology following - on HD now need outpt HD setup, s/p permcath placement by vascular /Rhabdomyolysis; likely from statin CpK trended upto ~28,000, placed on vigorous IV hydration w/o sig improvement - now on HD Monitor renal function, cont to Hold statin, low volume HCO3 drip, nephrology following, CPK now continues to trend down /Transaminitis; unknown etiology - trending down with normal ele Hepatitis panel negative, no stone in abdominal ultrasound + biliary sludge, no cholecystitis, dilated common bile duct GI following, unable to do MRI due to ICD Management supportive per GI /Metabolic encephalopathy; multifactorial - improved Uremia, transaminitis, acidosis, advanced age with underlying dementia Patient is lethargic but alert, Dobbhoff in place For medications and tube feeding cont supportive care, s/p repeat CT head showed no acute CVA speech eval ordered - recommended pureed diet with nectar thick liquid but patient failed /Metabolic acidosis: due acute kidney injury, mgt per neurology - placed on hCO3 drip, now also on HD /Severe hypokalemia; resolved Closely monitor electrolytes and replete as needed /Non-ST elevation NJ; In the setting of acute renal failure and acute rhabdo could be NSTEMI 2 However patient has risk factors, coronary artery disease - status post PCI in 2013 monitore with Serial cardiac enzymes, antiplatelets, beta-blockers echocardiogram, Cardiology evaluated - no cardiac work-up intended /Coronary artery disease status post PCI /ICD in place; monitor, cardiology evaluation if needed /Dyslipidemia; hold statin in view of rhabdo/transaminitis /Type 2 diabetes mellitus; Accu-Chek sliding scale coverage ADA diet, insulin as needed /History of seizure disorder; seizure precautions Continue Keppra /Anemia-we will transfuse 1 unit packed red blood cell /Severe protein calorie malnutrition Dietitian consult /hypertension; moderate control Continue current antihypertensives and PRN medications --DVT prophylaxis; heparin renal dose --DNR -- Discussed with son Disposition; patient is appropriate for hospice. If the family does not accept hospice patient can be discharged to SNF after PEG tube placed which is scheduled on 09/11/2019 because the patient has been on Eliquis. Poor prognosis History Interval history: Patient seen and examined this morning. more awake today, was able to convey the maintenance mechanic engine plan. Hospitalist Physical - Physical exam Narrative exam: VITAL SIGNS: Reviewed. GENERAL: The patient appears chronically ill, lethargic, favors the left side. Very weak vital signs as documented. HEAD: No signs of head trauma. EYES: Pupils are equal. Extraocular motions intact. EARS: Hearing grossly intact. MOUTH: Left facial droop NECK: No adenopathy, no JVD. CHEST: Chest with diminished breath sounds bilaterally. No wheezes, rales, or rhonchi. CARDIAC: Regular rate and rhythm. S1 and S2, without murmurs, gallops, or rubs. VASCULAR: No Edema. Peripheral pulses normal and equal in all extremities. ABDOMEN: Soft, non tender and non distended. No rebound or guarding, and no masses palpated. Bowel Sounds normal. MUSCULOSKELETAL: Extremities without clubbing, cyanosis or edema. NEUROLOGIC EXAM: Awake but lethargic and oriented x 3. more strength. No focal sensory or strength deficits on right but left sided is weak. Speech labored. Follows some commands but very lethargic unable to move lower extremities . PSYCHIATRIC: Mood unable to access SKIN: detail exam as documented in skin assessment - Constitutional Vitals: Temp Pulse Resp BP Pulse Ox 98.2 F 70 20 138/55 100 09/13/19 04:53 09/13/19 04:53 09/13/19 04:53 09/13/19 04:53 09/13/19 10:05 General appearance: Present: mild distress, well-nourished, other (Lethargic) Results - Labs CBC & Chem 7: 09/12/19 04:43 09/10/19 14:43 Labs: Laboratory Last Values WBC 15.6 K/mm3 (4.5-11.0) H 09/12/19 04:43 RBC 2.76 M/mm3 (3.65-5.03) L 09/12/19 04:43 Hgb 8.5 gm/dl (10.1-14.3) L 09/12/19 04:43 Hct 25.9 % (30.3-42.9) L 09/12/19 04:43 MCV 94 fl (79-97) 09/12/19 04:43 MCH 31 pg (28-32) 09/12/19 04:43 MCHC 33 % (30-34) 09/12/19 04:43 RDW 19.0 % (13.2-15.2) H 09/12/19 04:43 Plt Count 259 K/mm3 (140-440) 09/12/19 04:43 Lymph % (Auto) 6.4 % (13.4-35.0) L 09/12/19 04:43 [place] % (Auto) 7.0 % (0.0-7.3) 09/12/19 04:43 Eos % (Auto) 0.6 % (0.0-4.3) 09/12/19 04:43 Baso % (Auto) 0.2 % (0.0-1.8) 09/12/19 04:43 Lymph # 1.0 K/mm3 (1.2-5.4) L 09/12/19 04:43 [place] # 1.1 K/mm3 (0.0-0.8) H 09/12/19 04:43 Eos # 0.1 K/mm3 (0.0-0.4) 09/12/19 04:43 Baso # 0.0 K/mm3 (0.0-0.1) 09/12/19 04:43 Seg Neutrophils % 85.8 % (40.0-70.0) H 09/12/19 04:43 Seg Neutrophils # 13.4 K/mm3 (1.8-7.7) H 09/12/19 04:43 PT 16.2 Sec. (12.2-14.9) H 09/12/19 04:43 INR 1.28 (0.87-1.13) H 09/12/19 04:43 APTT 59.6 Sec. (24.2-36.6) H 08/20/19 23:09 Heparin Anti-Xa Level 0.18 U.I./ml (0.3-0.7) L 08/22/19 15:01 Sodium 139 mmol/L (137-145) 09/10/19 14:43 Potassium 3.6 mmol/L (3.6-5.0) 09/10/19 14:43 Chloride 97.5 mmol/L (98-107) L 09/10/19 14:43 Carbon Dioxide 22 mmol/L (22-30) 09/10/19 14:43 Anion Gap 23 mmol/L 09/10/19 14:43 BUN 72 mg/dL (7-17) H 09/10/19 14:43 Creatinine 3.7 mg/dL (0.7-1.2) H 09/10/19 14:43 Estimated GFR 14 ml/min 09/10/19 14:43 BUN/Creatinine Ratio 19 % 09/10/19 14:43 Glucose 206 mg/dL (65-100) H 09/10/19 14:43 POC Glucose 82 (70-105) 09/13/19 11:24 Lactic Acid 1.60 mmol/L (0.7-2.0) 09/09/19 14:26 Calcium 8.4 mg/dL (8.4-10.2) 09/10/19 14:43 Magnesium 2.00 mg/dL (1.7-2.3) 08/25/19 07:01 Total Bilirubin 0.20 mg/dL (0.1-1.2) 09/09/19 10:30 Direct Bilirubin < 0.2 mg/dL (0-0.2) 08/31/19 09:47 Indirect Bilirubin 0.1 mg/dL 08/31/19 09:47 AST 21 units/L (5-40) 09/09/19 10:30 ALT 64 units/L (7-56) H 09/09/19 10:30 Alkaline Phosphatase 71 units/L (35-129) 09/09/19 10:30 Ammonia 48.0 umol/L (25-60) 09/05/19 09:07 Total Creatine Kinase 599 units/L (30-135) H 09/06/19 Unknown CK-MB (CK-2) 73.0 ng/mL (0.0-4.0) H 08/21/19 05:35 CK-MB (CK-2) Rel Index 0.3 (0-4) 08/21/19 05:35 Troponin T 0.196 ng/mL (0.00-0.029) H* 08/21/19 05:35 Total Protein 5.3 g/dL (6.3-8.2) L 09/09/19 10:30 Albumin 1.9 g/dL (3.9-5) L 09/09/19 10:30 Albumin/Globulin Ratio 0.6 % 09/09/19 10:30 Triglycerides 125 mg/dL (2-149) 08/20/19 06:11 Cholesterol 89 mg/dL (50-199) 08/20/19 06:11 LDL Cholesterol Direct 45 mg/dL (50-130) L 08/20/19 06:11 HDL Cholesterol 25 mg/dL (40-59) L 08/20/19 06:11 Cholesterol/HDL Ratio 3.56 % 08/20/19 06:11 Urine Color Red (Yellow) 08/20/19 07:38 Urine Turbidity Cloudy (Clear) 08/20/19 07:38 Urine pH 5.0 (5.0-7.0) 08/20/19 07:38 Ur Specific Shafer 1.013 (1.003-1.030) 08/20/19 07:38 Urine Protein 100 mg/dl mg/dL (Negative) 08/20/19 07:38 Urine Glucose (UA) Neg mg/dL (Negative) 08/20/19 07:38 Urine Ketones Neg mg/dL (Negative) 08/20/19 07:38 Urine Blood Lg (Negative) 08/20/19 07:38 Urine Nitrite Neg (Negative) 08/20/19 07:38 Urine Bilirubin Neg (Negative) 08/20/19 07:38 Urine Urobilinogen < 2.0 mg/dL (<2.0) 08/20/19 07:38 Ur Leukocyte Esterase Sm (Negative) 08/20/19 07:38 Urine WBC (Auto) 25.0 /HPF (0.0-6.0) H 08/20/19 07:38 Urine RBC (Auto) 4.0 /HPF (0.0-6.0) 08/20/19 07:38 U Epithel Cells (Auto) 3.0 /HPF (0-13.0) 08/20/19 07:38 Urine Bacteria (Auto) 1+ /HPF (Negative) 08/20/19 07:38 Amorphous Crystals Few 08/20/19 07:38 Urine Creatinine 102.1 mg/dL (0.1-20.0) H 08/21/19 20:00 Protein/Creatinin Ratio 1.72 08/21/19 20:00 Urine Sodium 44 mmol/L 08/21/19 10:06 Urine Potassium 23.15 mmol/L 08/21/19 10:06 Urine Chloride 22.8 mmolL (110-250) L 08/21/19 10:06 Urine Total Protein 176 mg/dL (5-11.8) H 08/21/19 20:00 Random Vancomycin 11.5 ug/mL (0-40.0) 09/12/19 07:00 Urine Opiates Screen Presumptive positive 08/21/19 20:00 Urine Methadone Screen Presumptive negative 08/21/19 20:00 Acetaminophen < 5.0 ug/mL (10.0-30.0) L 08/22/19 04:34 Ur Barbiturates Screen Presumptive negative 08/21/19 20:00 Ur Phencyclidine Scrn Presumptive negative 08/21/19 20:00 Ur Amphetamines Screen Presumptive negative 08/21/19 20:00 U Benzodiazepines Scrn Presumptive positive 08/21/19 20:00 Urine Cocaine Screen Presumptive negative 08/21/19 20:00 U Marijuana (THC) Screen Presumptive negative 08/21/19 20:00 Drugs of Abuse Note Disclamer 08/21/19 20:00 Proteinase 3 (PR3) Ab <1.0 AI (<1.0) 08/21/19 08:51 Myeloperoxidase Ab <1.0 AI (<1.0) 08/21/19 08:51 Complement C3 136 mg/dL () 08/21/19 08:51 Complement C4 46 mg/dL () 08/21/19 08:51 Hepatitis A IgM Ab Non-reactive (NonReactive) 08/20/19 23:09 Hep Bs Antigen Non-reactive (Negative) 08/26/19 05:49 Hep B Core IgM Ab Non-reactive (NonReactive) 08/20/19 23:09 Hepatitis C Antibody Non-reactive (NonReactive) 08/26/19 05:49 Blood Type A POSITIVE 09/07/19 08:54 Antibody Screen Negative 09/07/19 08:54 Crossmatch See Detail 09/07/19 08:54 Active Medications - Current Medications Current Medications: Generic Name Dose Route Start Last Admin Trade Name Freq PRN Reason Stop Dose Admin Acetaminophen 650 mg 09/09/19 20:46 09/11/19 23:06 Tylenol PO 650 mg Q6H PRN Administration Pain, Mild (1-3) Alprazolam 0.5 mg 08/20/19 10:00 09/13/19 11:30 Xanax PO 0.5 mg BID SHARON Administration Lipase/Protease/Amylase 1 each 09/13/19 09:[address] 10,500 Unit FEEDTUBE PRN PRN For Clogged Feeding Tube Aspirin 325 mg 08/20/19 10:00 09/13/19 11:32 Ecotrin PO Not Given QDAY SHARON Carvedilol 3.125 mg 08/20/19 22:00 09/13/19 11:30 Coreg PO Not Given BID SHARON Epoetin Rahul 10,000 unit 08/25/19 09:32 09/11/19 11:55 Procrit IV 10,000 unit DESIRAE PRN Administration hemodialysis Famotidine 20 mg 09/01/19 10:00 09/13/19 11:29 Pepcid PO 20 mg DAILY SHARON Administration Heparin Sodium (Porcine) 5,000 unit 08/25/19 09:32 09/06/19 13:31 Heparin IV 5,000 unit DESIRAE PRN Administration hemodialysis Heparin Sodium (Porcine) 5,000 unit 09/08/19 22:00 09/12/19 22:20 Heparin SUB-Q 5,000 unit Q12HR SHARON Administration Hydralazine HCl 10 mg 08/20/19 09:00 08/26/19 20:15 Apresoline IV 10 mg Q4HR PRN Administration Hypertension Sodium Chloride 100 mls @ 999 mls/hr 09/02/19 09:30 Nacl 0.9% IV DESIRAE PRN Hypotension Sodium Chloride 1,000 mls @ 50 mls/hr 09/12/19 09:00 09/12/19 10:23 Nacl 0.9% 1000 Ml IV 50 mls/hr DIRECT SHARON Administration Piperacillin Sod/Tazobactam Sod 2.25 gm in 50 mls @ 100 mls/hr 09/13/19 13:00 Zosyn/Ns 2.25 Gm/50ml IV Q8H SHARON Protocol Insulin Human Lispro 0 unit 09/06/19 12:00 09/13/19 06:06 Humalog SUB-Q Not Given Q6HR SHARON Protocol Insulin Human NPH 15 unit 08/31/19 17:00 09/13/19 09:50 Humulin N SUB-Q Not Given BIDDIAB SHARON Levetiracetam 1,500 mg 08/23/19 22:00 09/13/19 11:29 Keppra FEEDTUBE 1,500 mg BID SHARON Administration Nitroglycerin 0.4 mg 08/20/19 19:00 Nitrostat SL .Q5MIN PRN Chest Pain Oxycodone/Acetaminophen 1 tab 08/21/19 20:37 09/12/19 23:36 Percocet 5/325 PO 1 tab Q6H PRN Administration Pain, Moderate (4-6) Simple Syrup 15 ml 09/13/19 09:33 Simple Syrup FEEDTUBE PRN PRN Hypoglycemia Simple Syrup 30 ml 09/13/19 09:33 Simple Syrup FEEDTUBE PRN PRN Hypoglycemia Sodium Bicarbonate 325 mg 09/13/19 09:33 Sodium Bicarbonate FEEDTUBE PRN PRN For Clogged Feeding Tube Nutrition/Malnutrition Assess - Dietary Evaluation Nutrition/Malnutrition Findings: Nutrition Notes Start: 08/22/19 10:11 Freq: Status: Active Protocol: Document 09/13/19 09:13 HA (Rec: 09/13/19 09:33 [id number]) Co-Sign 09/13/19 09:13 Nutrition Notes Initial or Follow up Reassessment Current Diagnosis Acute Kidney Injury,CKD(stage I-IV),Coronary Artery Disease, Diabetes Other Pertinent Diagnosis HD T, Th, Sat, GERD, hypokalemia, anemia, Current Diet No diet Labs/Tests No new labs Pertinent Medications Reviewed Height 5 ft 5 in Weight 74.5 kg [place] Body Weight (kg) 56.81 BMI 27.3 Weight change and time frame Wt change noted. Likely due to HD Weight Status Overweight Subjective/Other Information Pt had PEG placed. Restart Glucerna at 50 ml/hr. Percent of energy/protein needs met: 0%/0% Burn Absent Trauma Absent GI Symptoms None Current % PO Negligible Minimum of two criteria No Reduced Primer Supervisor Strength Measurably Reduced (severe) #1 Nutrition Diagnosis Inadequate oral intake Diagnosis Progress(for reassessment Continues documentation) Is patient on ventilator? No Is Patient Ambulatory and/or Out of Bed No REE-([facility]-confined to bed) [phone] Calculation Used for Recommendations [facility] Additional Notes Pro: 89 g (>1.2 g/kg) Fluid 1 ml/kcal or per MD Nutrition Intervention Change Diet Order: Start TF Nutrition Support: Glucerna 1.2 at 50 ml/hr Flush 100 ml q4h Kcal 1,440 Protein (gm) 72 Fluid (mL) 966 Goal #1 Meet at least 80% of energy and protein needs via TF Anticipated Discharge Needs: TF Follow-Up By: 09/15/19 Additional Comments FU for renal labs and TF tolerance
--- NOTE | 2019-09-13 15:32 | Gastroenterology Progress Note ---
Assessment and Plan - Patient Problems (1) Neurogenic dysphagia Current Visit: Yes Status: Acute Plan to address problem: - EGD/PEG 09/12 without obvious dysfunction/complication. - Will sign off; please call us if needed. Subjective Date of service: 09/13/19 Principal diagnosis: Neurogenic Dysphagia Interval history: The patient is at goal feeds and there have been no fevers and no bleeding at the site. Objective - Constitutional Vitals: Temp Pulse Resp BP Pulse Ox 98.2 F 70 20 138/55 100 09/13/19 04:53 09/13/19 04:53 09/13/19 04:53 09/13/19 04:53 09/13/19 10:05 General appearance: no acute distress - Respiratory Respiratory effort: normal Respiratory: bilateral: CTA - Cardiovascular Rhythm: regular Heart Sounds: Present: S1 & S2 - Gastrointestinal General gastrointestinal: Present: soft, non-tender, non-distended, other (PEG tightened to 8cm) - Labs CBC & Chem 7: 09/12/19 04:43 09/10/19 14:43 Labs: Laboratory Results - last 24 hr 09/12/19 09/12/19 09/12/19 13:12 17:50 23:43 POC Glucose 109 H 154 H 101 09/13/19 09/13/19 06:06 11:24 POC Glucose 96 82
[2019-09-13] MEDS: HEPARIN 5,000 UNIT/1 ML VIAL SUB-Q SCH ×2 (17:25→21:23)
[2019-09-13] MEDS: PIPERACIL-TAZO 2.25 GM/50 ML 2.25 GM/50 ML BAG IV SCH ×2 (17:28→21:22)
[2019-09-13] MEDS: oxyCODONE /ACETAMINOPHEN 5-325MG TAB PO PRN (19:24)
[2019-09-13] MEDS ORDERED: VANCOMYCIN/NS 1 GM/250 ML 1 GM/250 ML BAG IV ONE (22:00)
[2019-09-13] MEDS ORDERED: SODIUM CHLORIDE*PRIMING MACHINE ONLY FOR DIALYSIS MC ONE (22:59)
[2019-09-14] MEDS: INSULIN LISPRO 100 UNIT/ML SUB-Q SCH ×4 (00:30→17:10)
[2019-09-14] MEDS: PIPERACIL-TAZO 2.25 GM/50 ML 2.25 GM/50 ML BAG IV SCH ×3 (05:40→21:14)
[2019-09-14] MEDS: oxyCODONE /ACETAMINOPHEN 5-325MG TAB PO PRN ×2 (06:27→12:22)
[2019-09-14] MEDS: INSULIN NPH, HUMAN 100 UNIT/1 ML SUB-Q SCH ×2 (08:00→17:10)
[2019-09-14 08:31] LABS: Hemoglobin 8.5 gm/dl (10.1-14.3); Mean Corpuscular HGB Conc 33 % (30-34); Mean Corpuscular Volume 94 fl (79-97); Platelet Count 277 K/mm3 (140-440); Red Blood Count 2.78 M/mm3 (3.65-5.03); Red Cell Distribution Width 19.1 % (13.2-15.2)
[2019-09-14 08:48] LABS: Calcium 8.1 mg/dL (8.4-10.2)
[2019-09-14] MEDS: ALPRAZolam 0.5 MG TAB PO SCH ×2 (10:34→22:19)
[2019-09-14] MEDS: FAMOTIDINE 20 MG TAB PO SCH (10:34)
[2019-09-14] MEDS: levETIRAcetam 500 MG/5 ML ORAL LIQD FEEDTUBE SCH ×2 (10:34→22:14)
[2019-09-14] MEDS: ASPIRIN EC 325 MG TAB PO SCH (10:34)
[2019-09-14] MEDS: carvediloL 3.125 MG TAB PO SCH ×2 (10:35→22:15)
[2019-09-14] MEDS: HEPARIN 5,000 UNIT/1 ML VIAL SUB-Q SCH ×2 (10:35→22:14)
[2019-09-14] MEDS: POTASSIUM CHLORIDE 10 MEQ 10 MEQ/100 ML BAG IV SCH ×4 (10:38→15:42)
[2019-09-14] MEDS ORDERED: SODIUM CHLORIDE 0.9% 100 ML IV PRN (12:12)
--- NOTE | 2019-09-14 12:14 | Progress Note ---
Assessment and Plan - Patient Problems (1) Acute renal failure Current Visit: Yes Status: Acute Plan to address problem: Acute tubular necrosis secondary to rhabdomyolysis. no significant renal recovery seen. Cont temporary HD on TTS schedule, outpatient arrangement as per case management. s/p PEG placement, awaiting DEWEY placement (2) Acute renal failure due to rhabdomyolysis Current Visit: Yes Status: Acute Plan to address problem: Probably statin induced. Statin has been stopped. CPK is improving. (3) Hypertensive chronic kidney disease with stage 1 through stage 4 chronic kidney disease, or unspecified chronic kidney disease Current Visit: Yes Status: Acute Plan to address problem: monitor BP on current meds (4) Type 2 diabetes mellitus with diabetic chronic kidney disease Current Visit: Yes Status: Chronic Plan to address problem: DM management per primary attending. (5) Metabolic acidosis Current Visit: Yes Status: Acute Plan to address problem: improved with HD (6) Transaminasemia Current Visit: Yes Status: Acute Plan to address problem: Liver function improving. Follow-up liver function test off of statin Subjective Date of service: 09/14/19 Principal diagnosis: Neurogenic Dysphagia Interval history: Pt awake, alert, in no acute respiratory distress. Objective - Vital Signs Vital signs: Vital Signs - 12hr 09/13/19 09/14/19 09/14/19 23:32 05:49 08:43 Temperature 98.7 F 98.8 F Pulse Rate 70 74 Respiratory 17 16 Rate Blood Pressure 130/47 132/47 O2 Sat by Pulse 99 100 96 Oximetry 09/14/19 10:35 Temperature Pulse Rate 69 Respiratory Rate Blood Pressure 127/44 O2 Sat by Pulse Oximetry - General Appearance General appearance: well-developed, appears stated age, chronically ill EENT: ATNC, PERRL, mucous membranes moist Neck: no JVD Respiratory: Present: Clear to Ascultation Cardiology: regular, S1S2 Gastrointestinal: normoactive bowel sounds Integumentary: no rash, other (no edema ) Neurologic: no focal deficit, alert and oriented x3, strength 5/5, CN 3-12 intact Psychiatric: mood/affect appropriate, cooperative - Lab 09/14/19 08:08 09/14/19 08:08 Most recent lab results Calcium 8.1 mg/dL (8.4-10.2) L 09/14/19 08:08 Magnesium 2.00 mg/dL (1.7-2.3) 08/25/19 07:01 Urine Creatinine 102.1 mg/dL (0.1-20.0) H 08/21/19 20:00 Urine Sodium 44 mmol/L 08/21/19 10:06 Urine Total Protein 176 mg/dL (5-11.8) H 08/21/19 20:00 Medications & Allergies - Medications Allergies/Adverse Reactions: Allergies No Known Allergies Allergy (Verified 11/29/13 10:39) Home Medications: Home Medications Medication Instructions Recorded Confirmed Last Taken Type ALPRAZolam [Xanax TAB] 0.5 mg PO BID 03/21/13 08/20/19 01/29/14 History Amlodipine Bes/Olmesartan Med 2.5 mg PO QDAY 03/21/13 08/20/19 1 Day Ago History [Shekhar 10-20 mg] ~08/19/19 Glimepiride [Amaryl] 2 mg PO QAM 03/21/13 08/20/19 1 Day Ago History ~08/19/19 2 mg Losartan [Cozaar] 25 mg PO QDAY 03/21/13 08/20/19 1 Day Ago History ~08/19/19 25 mg Atorvastatin [Lipitor] 40 mg PO QHS 11/13/13 08/20/19 01/29/14 History Oxycodone HCl/Acetaminophen 1 each PO Q6HR PRN #20 tablet 11/29/13 08/20/19 01/30/14 Rx [Percocet 7.5/325 mg] Aspirin EC [Ecotrin] 325 mg PO QDAY #30 tablet 02/08/14 08/20/19 Unknown Rx Clopidogrel [Plavix] 75 mg PO QDAY #30 tablet 02/08/14 08/20/19 Unknown Rx Pantoprazole [Protonix TAB] 40 mg PO QDAY #30 tablet 02/08/14 08/20/19 1 Day Ago Rx ~08/19/19 40 mg carvediloL [Coreg] 3.125 mg PO BID #60 tablet 02/08/14 08/20/19 Unknown Rx levETIRAcetam [Keppra TAB] 1,500 mg PO BID 08/20/19 08/20/19 Unknown History Citalopram [celeXA] 40 mg PO QDAY 08/22/19 08/22/19 Unknown History Active Medications: Generic Name Dose Route Start Last Admin Trade Name Freq PRN Reason Stop Dose Admin Acetaminophen 650 mg 09/09/19 20:46 09/11/19 23:06 Tylenol PO 650 mg Q6H PRN Administration Pain, Mild (1-3) Alprazolam 0.5 mg 08/20/19 10:00 09/14/19 10:34 Xanax PO 0.5 mg BID SHARON Administration Lipase/Protease/Amylase 1 each 09/13/19 09:[address] 10,500 Unit FEEDTUBE PRN PRN For Clogged Feeding Tube Aspirin 325 mg 08/20/19 10:00 09/14/19 10:34 Ecotrin PO 325 mg QDAY SHARON Administration Carvedilol 3.125 mg 08/20/19 22:00 09/14/19 10:35 Coreg PO 3.125 mg BID SHARON Administration Epoetin Rahul 10,000 unit 08/25/19 09:32 09/11/19 11:55 Procrit IV 10,000 unit DESIRAE PRN Administration hemodialysis Famotidine 20 mg 09/01/19 10:00 09/14/19 10:34 Pepcid PO 20 mg DAILY SHARON Administration Heparin Sodium (Porcine) 5,000 unit 08/25/19 09:32 09/06/19 13:31 Heparin IV 5,000 unit DESIRAE PRN Administration hemodialysis Heparin Sodium (Porcine) 5,000 unit 09/08/19 22:00 09/14/19 10:35 Heparin SUB-Q 5,000 unit Q12HR SHARON Administration Hydralazine HCl 10 mg 08/20/19 09:00 08/26/19 20:15 Apresoline IV 10 mg Q4HR PRN Administration Hypertension Sodium Chloride 100 mls @ 999 mls/hr 09/02/19 09:30 Nacl 0.9% IV DESIRAE PRN Hypotension Sodium Chloride 1,000 mls @ 50 mls/hr 09/12/19 09:00 09/12/19 10:23 Nacl 0.9% 1000 Ml IV 50 mls/hr DIRECT SHARON Administration Piperacillin Sod/Tazobactam Sod 2.25 gm in 50 mls @ 100 mls/hr 09/13/19 13:00 09/14/19 05:40 Zosyn/Ns 2.25 Gm/50ml IV 100 mls/hr Q8H SHARON Administration Protocol Potassium Chloride 10 meq in 100 mls @ 100 mls/hr 09/14/19 10:00 09/14/19 12:09 Kcl 10meq/100ml IV 09/14/19 13:59 100 mls/hr Q1H SHARON Administration Sodium Chloride 100 mls @ 999 mls/hr 09/14/19 12:12 Nacl 0.9% IV DESIRAE PRN Hypotension Insulin Human Lispro 0 unit 09/06/19 12:00 09/14/19 06:26 Humalog SUB-Q 3 unit Q6HR SHARON Administration Protocol Insulin Human NPH 15 unit 08/31/19 17:00 09/14/19 08:00 Humulin N SUB-Q 15 unit BIDDIAB SHARON Administration Levetiracetam 1,500 mg 08/23/19 22:00 09/14/19 10:34 Keppra FEEDTUBE 1,500 mg BID SHARON Administration Nitroglycerin 0.4 mg 08/20/19 19:00 Nitrostat SL .Q5MIN PRN Chest Pain Oxycodone/Acetaminophen 1 tab 08/21/19 20:37 09/14/19 06:27 Percocet 5/325 PO 1 tab Q6H PRN Administration Pain, Moderate (4-6) Simple Syrup 15 ml 09/13/19 09:33 Simple Syrup FEEDTUBE PRN PRN Hypoglycemia Simple Syrup 30 ml 09/13/19 09:33 Simple Syrup FEEDTUBE PRN PRN Hypoglycemia Sodium Bicarbonate 325 mg 09/13/19 09:33 Sodium Bicarbonate FEEDTUBE PRN PRN For Clogged Feeding Tube
--- NOTE | 2019-09-14 12:23 | Progress Note ---
Assessment and Plan Cultures: 08/20/2019 blood culture: No growth 08/20/2019 urine culture: No growth 09/09/2019 blood culture: E.faecalis 09/11/2019 blood culture: no growth A/P: 84-year-old female with hypertension, diabetes mellitus, coronary artery disease, indwelling AICD was admitted to the hospital on 08/20/2019 with generalized weakness. Upon evaluation, she was found to have no leukocytosis or fever. Labs showed acute renal failure along with transaminase elevation along with CK of 20K. On 08/25/2019, patient underwent right IJ PermCath insertion and was started on dialysis by nephrology, now with: #Persistent high fevers: Not present on admission. Patient x-ray does not show any obvious pneumonia. CT with b/l pleural effusions, no intra-abdominal process. Blood cultures: 07/12 E.faecalis. #E.faecalis bacteremia: 07/12 bottles. Continue abx. Follow up ID and susceptibility. Recheck blood cultures. Suspect hepatobiliary source given RUQ US findings of CBD dilatation. TTE showed no obvious vegetations, repeat blood cultures negative. #Acute encephalopathy: Multifactorial. #Acute renal failure: Now requiring dialysis. Renally dose antibiotics. #Elevated LFTs: Likely related to rhabdomyolysis: Trending down. Recs: Awaiting HIDA scan continue IV Zosyn, renally adjusted d/w Dr. Villaseñor. Magda Ybarra MD, FACP [facility] ([facility]) C: [phone] O: [phone] F: [phone] Subjective Date of service: 09/14/19 Principal diagnosis: Neurogenic Dysphagia Interval history: No fever. Otherwise unchanged. Tolerating Zosyn. Awaiting HIDA. Objective - Exam Narrative Exam: Physical Exam: Constitutional: drowsy, non verbal, Head, Ears, Nose: Normocephalic, atraumatic. External ears, nose normal Eyes: Conjunctivae/corneas clear. No icterus. No ptosis. Neck: Supple, no meningeal signs Oral: unable to examine Cardiovascular: S1, S2 normal. No AICD tenderness Respiratory: clear, no crackles GI: Soft, bowel sounds normal. No peritoneal signs. PEG + Musculoskeletal: No pedal edema, no cyanosis. HD cath + Skin: No rash or abscess Hem/Lymphatic: No palpable cervical or supraclavicular nodes. No lymphangitis Psych: no agitation Neurological: drowsy, non verbal, does not follow any commands - Constitutional Vitals: Vital Signs Temp Pulse Resp BP Pulse Ox 98.2 F 71 22 121/49 95 09/14/19 11:44 09/14/19 11:44 09/14/19 11:44 09/14/19 11:44 09/14/19 11:44 Temperature -Last 24 Hours Temperature 98.2 F Temperature 98.8 F Temperature 98.7 F Temperature 98.2 F Temperature 98.2 F - Labs CBC & Chem 7: 09/14/19 08:08 09/14/19 08:08 Labs: Abnormal lab results 09/13/19 09/14/19 09/14/19 Range/Units 23:50 05:32 08:08 WBC 15.3 H (4.5-11.0) K/mm3 RBC 2.78 L (3.65-5.03) M/mm3 Hgb 8.5 L (10.1-14.3) gm/dl Hct 26.0 L (30.3-42.9) % RDW 19.1 H (13.2-15.2) % Potassium (3.6-5.0) mmol/L BUN (7-17) mg/dL Creatinine (0.7-1.2) mg/dL Glucose (65-100) mg/dL POC Glucose 195 H 214 H (70-105) Calcium (8.4-10.2) mg/dL 09/14/19 09/14/19 Range/Units 08:08 12:00 WBC (4.5-11.0) K/mm3 RBC (3.65-5.03) M/mm3 Hgb (10.1-14.3) gm/dl Hct (30.3-42.9) % RDW (13.2-15.2) % Potassium 2.9 L* (3.6-5.0) mmol/L BUN 41 H (7-17) mg/dL Creatinine 2.7 H (0.7-1.2) mg/dL Glucose 205 H (65-100) mg/dL POC Glucose 188 H (70-105) Calcium 8.1 L (8.4-10.2) mg/dL
--- NOTE | 2019-09-14 12:39 | Progress Note ---
Assessment and Plan Assessment and plan: [id number] -[place] female patient with significant history of hypertension ,diabetes mellitus, coronary artery disease status post PCI ,CVA and seizure disorder Presented to the emergency room with complaints of generalized weakness, work-up is consistent with acute renal failure, acute liver failure, severe rhabdomyolysis due to statin use, non-ST elevation KS, severe metabolic encephalopathy, multiple specialists are following the patient. * During the course of hospitalization patient was started on hemodialysis with noted improvement in rhabdomyolysis and also mental status. She continues to require hemodialysis. * Statin was discontinued as this was felt to be the inciting factor * Initially there was a discussion for speech evaluation which was done with recommendation for pured diet unfortunately the patient has not been tolerating this and requiring surgical consult to consider PEG placement per the family. Family also made the patient a DNR at this time. * Patient has a history of CVA with residual weakness although was ambulatory prior to this hospitalization. * Once nutritional pathways achieved and outpatient dialysis achieved patient can be discharged Important active issues: 1. Worsening renal function; nephrology initiated hemodialysis - need outpt setup 2. Severe rhabdomyolysis; with renal and liver failure due to statin, improving 3. Acute liver failure/transaminitis - trending down 4. Non-ST elevation KS; medical Mx 5. Acute encephalopathy, improved, placed on pureed diet 6. Poor p.o. intake: PEG placement recommended : Currently unable to tolerate PO. continue HD, check chxr considering low grade temp although resolved now. GI consulted for Tube feed placement, family again states that they want PEG Tube. Aspiration precautions, keep HOB elevated. 09/07/19: Noted to have significant blood loss with hemoglobin down to 6.2. 1 unit packed red blood cells transfused. Discontinued Plavix discussed with GI anticipate PEG placement soon. Family not available at this time will like to discuss possible hospice with them. Patient very lethargic remote markedly decompensated 09/08: Noted fever, ID consulted, Sepsis work up ongoing. Check labs, anticipating PEG placement in 2 days. Repeat hemoglobin still 6.7 will give additional unit of blood. We will also obtain a CT abdomen and pelvis with oral contrast to further evaluate for possible underlining ischemic colitis. 09/09: Patient still with repeated fever overnight. CT of the abdomen and pelvis with oral contrast was negative for ischemic colitis. Will check Doppler both legs to rule out DVT. Still awaiting to speak with family as none is present at this time. Attempts made to call discussed with case management. Sepsis work- up continues at this point there is no obvious source 09/10:Continue dialysis and Sepsis work up. BLOOD CULTURES positive and being rechecked to ensure clearance. Discussed with the patients family, they understand the severity of the illness and will discuss when discharged. 09/11. PEG placement done, starting tube feeds. Flagyl added. MRCP ordered to eval hepatobiliary source for E.faecalis bacteremia 09/13/19: HIDA rather than MRI as patient has Pacemaker. Family advised. still awaiting dialysis chair time. Efaecalis may have been a contaminant as other labs 09/14/19: Replace potassium as patient noted to have hypokalemia HIDA rather than MRI as patient has Pacemaker. Family advised. still awaiting dialysis chair time. Efaecalis may have been a contaminant as other labs Gram Positive Cocci Bactermia ?Contaminate Persistent Fever. Not present on admission. No clear source /Acute kidney injury; likely ATN Worsening renal function, nephrology following - on HD now need outpt HD setup, s/p permcath placement by vascular /Rhabdomyolysis; likely from statin CpK trended upto ~28,000, placed on vigorous IV hydration w/o sig improvement - now on HD Monitor renal function, cont to Hold statin, low volume HCO3 drip, nephrology following, CPK now continues to trend down /Transaminitis; unknown etiology - trending down with normal ele Hepatitis panel negative, no stone in abdominal ultrasound + biliary sludge, no cholecystitis, dilated common bile duct GI following, unable to do MRI due to ICD Management supportive per GI /Metabolic encephalopathy; multifactorial - improved Uremia, transaminitis, acidosis, advanced age with underlying dementia Patient is lethargic but alert, Dobbhoff in place For medications and tube feeding cont supportive care, s/p repeat CT head showed no acute CVA speech eval ordered - recommended pureed diet with nectar thick liquid but patient failed /Metabolic acidosis: due acute kidney injury, mgt per neurology - placed on hCO3 drip, now also on HD /Severe hypokalemia; replace and recheck in a.m. Closely monitor electrolytes and replete as needed /Non-ST elevation [place]; In the setting of acute renal failure and acute rhabdo could be NSTEMI 2 However patient has risk factors, coronary artery disease - status post PCI in 2013 monitore with Serial cardiac enzymes, antiplatelets, beta-blockers echocardiogram, Cardiology evaluated - no cardiac work-up intended /Coronary artery disease status post PCI /ICD in place; monitor, cardiology evaluation if needed /Dyslipidemia; hold statin in view of rhabdo/transaminitis /Type 2 diabetes mellitus; Accu-Chek sliding scale coverage ADA diet, insulin as needed /History of seizure disorder; seizure precautions Continue Keppra /Anemia-was transfused 1 unit packed red blood cell /Severe protein calorie malnutrition Dietitian consult /hypertension; moderate control Continue current antihypertensives and PRN medications --DVT prophylaxis; heparin renal dose --DNR -- Discussed with son Disposition; patient is appropriate for hospice. If the family does not accept hospice patient can be discharged to SNF after PEG tube placed which is scheduled on 09/11/2019 because the patient has been on Eliquis. Poor prognosis History Interval history: Patient seen and examined this morning. more awake today, Hospitalist Physical - Physical exam Narrative exam: VITAL SIGNS: Reviewed. GENERAL: The patient appears chronically ill, lethargic, favors the left side. Very weak vital signs as documented. HEAD: No signs of head trauma. EYES: Pupils are equal. Extraocular motions intact. EARS: Hearing grossly intact. MOUTH: Left facial droop NECK: No adenopathy, no JVD. CHEST: Chest with diminished breath sounds bilaterally. No wheezes, rales, or rhonchi. CARDIAC: Regular rate and rhythm. S1 and S2, without murmurs, gallops, or rubs. VASCULAR: No Edema. Peripheral pulses normal and equal in all extremities. ABDOMEN: Soft, non tender and non distended. No rebound or guarding, and no masses palpated. Bowel Sounds normal. MUSCULOSKELETAL: Extremities without clubbing, cyanosis or edema. NEUROLOGIC EXAM: Awake but lethargic and oriented x 3. more strength. No focal sensory or strength deficits on right but left sided is weak. Speech labored. Follows some commands but very lethargic, Now able to move lower extremities . PSYCHIATRIC: Mood unable to access SKIN: detail exam as documented in skin assessment - Constitutional Vitals: Temp Pulse Resp BP Pulse Ox 98.2 F 71 22 121/49 95 09/14/19 11:44 09/14/19 11:44 09/14/19 11:44 09/14/19 11:44 09/14/19 11:44 General appearance: Present: mild distress, well-nourished, other (Lethargic) Results - Labs CBC & Chem 7: 09/14/19 08:08 09/14/19 08:08 Labs: Laboratory Last Values WBC 15.3 K/mm3 (4.5-11.0) H 09/14/19 08:08 RBC 2.78 M/mm3 (3.65-5.03) L 09/14/19 08:08 Hgb 8.5 gm/dl (10.1-14.3) L 09/14/19 08:08 Hct 26.0 % (30.3-42.9) L 09/14/19 08:08 MCV 94 fl (79-97) 09/14/19 08:08 MCH 31 pg (28-32) 09/14/19 08:08 MCHC 33 % (30-34) 09/14/19 08:08 RDW 19.1 % (13.2-15.2) H 09/14/19 08:08 Plt Count 277 K/mm3 (140-440) 09/14/19 08:08 Lymph % (Auto) 6.4 % (13.4-35.0) L 09/12/19 04:43 Piatt % (Auto) 7.0 % (0.0-7.3) 09/12/19 04:43 Eos % (Auto) 0.6 % (0.0-4.3) 09/12/19 04:43 Baso % (Auto) 0.2 % (0.0-1.8) 09/12/19 04:43 Lymph # 1.0 K/mm3 (1.2-5.4) L 09/12/19 04:43 Piatt # 1.1 K/mm3 (0.0-0.8) H 09/12/19 04:43 Eos # 0.1 K/mm3 (0.0-0.4) 09/12/19 04:43 Baso # 0.0 K/mm3 (0.0-0.1) 09/12/19 04:43 Seg Neutrophils % 85.8 % (40.0-70.0) H 09/12/19 04:43 Seg Neutrophils # 13.4 K/mm3 (1.8-7.7) H 09/12/19 04:43 PT 16.2 Sec. (12.2-14.9) H 09/12/19 04:43 INR 1.28 (0.87-1.13) H 09/12/19 04:43 APTT 59.6 Sec. (24.2-36.6) H 08/20/19 23:09 Heparin Anti-Xa Level 0.18 U.I./ml (0.3-0.7) L 08/22/19 15:01 Sodium 140 mmol/L (137-145) 09/14/19 08:08 Potassium 2.9 mmol/L (3.6-5.0) L* 09/14/19 08:08 Chloride 99.5 mmol/L (98-107) 09/14/19 08:08 Carbon Dioxide 22 mmol/L (22-30) 09/14/19 08:08 Anion Gap 21 mmol/L 09/14/19 08:08 BUN 41 mg/dL (7-17) H 09/14/19 08:08 Creatinine 2.7 mg/dL (0.7-1.2) H 09/14/19 08:08 Estimated GFR 20 ml/min 09/14/19 08:08 BUN/Creatinine Ratio 15 % 09/14/19 08:08 Glucose 205 mg/dL (65-100) H 09/14/19 08:08 POC Glucose 188 (70-105) H 09/14/19 12:00 Lactic Acid 1.60 mmol/L (0.7-2.0) 09/09/19 14:26 Calcium 8.1 mg/dL (8.4-10.2) L 09/14/19 08:08 Magnesium 2.00 mg/dL (1.7-2.3) 08/25/19 07:01 Total Bilirubin 0.20 mg/dL (0.1-1.2) 09/09/19 10:30 Direct Bilirubin < 0.2 mg/dL (0-0.2) 08/31/19 09:47 Indirect Bilirubin 0.1 mg/dL 08/31/19 09:47 AST 21 units/L (5-40) 09/09/19 10:30 ALT 64 units/L (7-56) H 09/09/19 10:30 Alkaline Phosphatase 71 units/L (35-129) 09/09/19 10:30 Ammonia 48.0 umol/L (25-60) 09/05/19 09:07 Total Creatine Kinase 599 units/L (30-135) H 09/06/19 Unknown CK-MB (CK-2) 73.0 ng/mL (0.0-4.0) H 08/21/19 05:35 CK-MB (CK-2) Rel Index 0.3 (0-4) 08/21/19 05:35 Troponin T 0.196 ng/mL (0.00-0.029) H* 08/21/19 05:35 Total Protein 5.3 g/dL (6.3-8.2) L 09/09/19 10:30 Albumin 1.9 g/dL (3.9-5) L 09/09/19 10:30 Albumin/Globulin Ratio 0.6 % 09/09/19 10:30 Triglycerides 125 mg/dL (2-149) 08/20/19 06:11 Cholesterol 89 mg/dL (50-199) 08/20/19 06:11 LDL Cholesterol Direct 45 mg/dL (50-130) L 08/20/19 06:11 HDL Cholesterol 25 mg/dL (40-59) L 08/20/19 06:11 Cholesterol/HDL Ratio 3.56 % 08/20/19 06:11 Urine Color Red (Yellow) 08/20/19 07:38 Urine Turbidity Cloudy (Clear) 08/20/19 07:38 Urine pH 5.0 (5.0-7.0) 08/20/19 07:38 Ur Specific [place] 1.013 (1.003-1.030) 08/20/19 07:38 Urine Protein 100 mg/dl mg/dL (Negative) 08/20/19 07:38 Urine Glucose (UA) Neg mg/dL (Negative) 08/20/19 07:38 Urine Ketones Neg mg/dL (Negative) 08/20/19 07:38 Urine Blood Lg (Negative) 08/20/19 07:38 Urine Nitrite Neg (Negative) 08/20/19 07:38 Urine Bilirubin Neg (Negative) 08/20/19 07:38 Urine Urobilinogen < 2.0 mg/dL (<2.0) 08/20/19 07:38 Ur Leukocyte Esterase Sm (Negative) 08/20/19 07:38 Urine WBC (Auto) 25.0 /HPF (0.0-6.0) H 08/20/19 07:38 Urine RBC (Auto) 4.0 /HPF (0.0-6.0) 08/20/19 07:38 U Epithel Cells (Auto) 3.0 /HPF (0-13.0) 08/20/19 07:38 Urine Bacteria (Auto) 1+ /HPF (Negative) 08/20/19 07:38 Amorphous Crystals Few 08/20/19 07:38 Urine Creatinine 102.1 mg/dL (0.1-20.0) H 08/21/19 20:00 Protein/Creatinin Ratio 1.72 08/21/19 20:00 Urine Sodium 44 mmol/L 08/21/19 10:06 Urine Potassium 23.15 mmol/L 08/21/19 10:06 Urine Chloride 22.8 mmolL (110-250) L 08/21/19 10:06 Urine Total Protein 176 mg/dL (5-11.8) H 08/21/19 20:00 Random Vancomycin 11.5 ug/mL (0-40.0) 09/12/19 07:00 Urine Opiates Screen Presumptive positive 08/21/19 20:00 Urine Methadone Screen Presumptive negative 08/21/19 20:00 Acetaminophen < 5.0 ug/mL (10.0-30.0) L 08/22/19 04:34 Ur Barbiturates Screen Presumptive negative 08/21/19 20:00 Ur Phencyclidine Scrn Presumptive negative 08/21/19 20:00 Ur Amphetamines Screen Presumptive negative 08/21/19 20:00 U Benzodiazepines Scrn Presumptive positive 08/21/19 20:00 Urine Cocaine Screen Presumptive negative 08/21/19 20:00 U Marijuana (THC) Screen Presumptive negative 08/21/19 20:00 Drugs of Abuse Note Disclamer 08/21/19 20:00 Proteinase 3 (PR3) Ab <1.0 AI (<1.0) 08/21/19 08:51 Myeloperoxidase Ab <1.0 AI (<1.0) 08/21/19 08:51 Complement C3 136 mg/dL () 08/21/19 08:51 Complement C4 46 mg/dL () 08/21/19 08:51 Hepatitis A IgM Ab Non-reactive (NonReactive) 08/20/19 23:09 Hep Bs Antigen Non-reactive (Negative) 08/26/19 05:49 Hep B Core IgM Ab Non-reactive (NonReactive) 08/20/19 23:09 Hepatitis C Antibody Non-reactive (NonReactive) 08/26/19 05:49 Blood Type A POSITIVE 09/07/19 08:54 Antibody Screen Negative 09/07/19 08:54 Crossmatch See Detail 09/07/19 08:54 Active Medications - Current Medications Current Medications: Generic Name Dose Route Start Last Admin Trade Name Freq PRN Reason Stop Dose Admin Acetaminophen 650 mg 09/09/19 20:46 09/11/19 23:06 Tylenol PO 650 mg Q6H PRN Administration Pain, Mild (1-3) Alprazolam 0.5 mg 08/20/19 10:00 09/14/19 10:34 Xanax PO 0.5 mg BID SHARON Administration Lipase/Protease/Amylase 1 each 09/13/19 09:[address] 10,500 Unit FEEDTUBE PRN PRN For Clogged Feeding Tube Aspirin 325 mg 08/20/19 10:00 09/14/19 10:34 Ecotrin PO 325 mg QDAY SHARON Administration Carvedilol 3.125 mg 08/20/19 22:00 09/14/19 10:35 Coreg PO 3.125 mg BID SHARON Administration Epoetin Rahul 10,000 unit 08/25/19 09:32 09/11/19 11:55 Procrit IV 10,000 unit DESIRAE PRN Administration hemodialysis Famotidine 20 mg 09/01/19 10:00 09/14/19 10:34 Pepcid PO 20 mg DAILY SHARON Administration Heparin Sodium (Porcine) 5,000 unit 08/25/19 09:32 09/06/19 13:31 Heparin IV 5,000 unit DESIRAE PRN Administration hemodialysis Heparin Sodium (Porcine) 5,000 unit 09/08/19 22:00 09/14/19 10:35 Heparin SUB-Q 5,000 unit Q12HR SHARON Administration Hydralazine HCl 10 mg 08/20/19 09:00 08/26/19 20:15 Apresoline IV 10 mg Q4HR PRN Administration Hypertension Sodium Chloride 100 mls @ 999 mls/hr 09/02/19 09:30 Nacl 0.9% IV DESIRAE PRN Hypotension Sodium Chloride 1,000 mls @ 50 mls/hr 09/12/19 09:00 09/12/19 10:23 Nacl 0.9% 1000 Ml IV 50 mls/hr DIRECT SHARON Administration Piperacillin Sod/Tazobactam Sod 2.25 gm in 50 mls @ 100 mls/hr 09/13/19 13:00 09/14/19 05:40 Zosyn/Ns 2.25 Gm/50ml IV 100 mls/hr Q8H SHARON Administration Protocol Potassium Chloride 10 meq in 100 mls @ 100 mls/hr 09/14/19 10:00 09/14/19 12:09 Kcl 10meq/100ml IV 09/14/19 13:59 100 mls/hr Q1H SHARON Administration Sodium Chloride 100 mls @ 999 mls/hr 09/14/19 12:12 Nacl 0.9% IV DESIRAE PRN Hypotension Insulin Human Lispro 0 unit 09/06/19 12:00 09/14/19 12:23 Humalog SUB-Q 2 unit Q6HR SHARON Administration Protocol Insulin Human NPH 15 unit 08/31/19 17:00 09/14/19 08:00 Humulin N SUB-Q 15 unit BIDDIAB SHARON Administration Levetiracetam 1,500 mg 08/23/19 22:00 09/14/19 10:34 Keppra FEEDTUBE 1,500 mg BID SHARON Administration Nitroglycerin 0.4 mg 08/20/19 19:00 Nitrostat SL .Q5MIN PRN Chest Pain Oxycodone/Acetaminophen 1 tab 08/21/19 20:37 09/14/19 12:22 Percocet 5/325 PO 1 tab Q6H PRN Administration Pain, Moderate (4-6) Simple Syrup 15 ml 09/13/19 09:33 Simple Syrup FEEDTUBE PRN PRN Hypoglycemia Simple Syrup 30 ml 09/13/19 09:33 Simple Syrup FEEDTUBE PRN PRN Hypoglycemia Sodium Bicarbonate 325 mg 09/13/19 09:33 Sodium Bicarbonate FEEDTUBE PRN PRN For Clogged Feeding Tube Nutrition/Malnutrition Assess - Dietary Evaluation Nutrition/Malnutrition Findings: Nutrition Notes Start: 08/22/19 10:11 Freq: Status: Active Protocol: Document 09/13/19 09:13 HA (Rec: 09/13/19 09:33 HA [id number]) Co-Sign 09/13/19 09:13 SAFIA Nutrition Notes Initial or Follow up Reassessment Current Diagnosis Acute Kidney Injury,CKD(stage I-IV),Coronary Artery Disease, Diabetes Other Pertinent Diagnosis HD T, Th, Sat, GERD, hypokalemia, anemia, Current Diet No diet Labs/Tests No new labs Pertinent Medications Reviewed Height 5 ft 5 in Weight 74.5 kg [place] Body Weight (kg) 56.81 BMI 27.3 Weight change and time frame Wt change noted. Likely due to HD Weight Status Overweight Subjective/Other Information Pt had PEG placed. Restart Glucerna at 50 ml/hr. Percent of energy/protein needs met: 0%/0% Burn Absent Trauma Absent GI Symptoms None Current % PO Negligible Minimum of two criteria No Reduced Filer And Sander Strength Measurably Reduced (severe) #1 Nutrition Diagnosis Inadequate oral intake Diagnosis Progress(for reassessment Continues documentation) Is patient on ventilator? No Is Patient Ambulatory and/or Out of Bed No REE-(Holmes-St. Jeor-confined to bed) 1430.412 Calculation Used for Recommendations Holmes-St Jeor Additional Notes Pro: 89 g (>1.2 g/kg) Fluid 1 ml/kcal or per MD Nutrition Intervention Change Diet Order: Start TF Nutrition Support: Glucerna 1.2 at 50 ml/hr Flush 100 ml q4h Kcal 1,440 Protein (gm) 72 Fluid (mL) 966 Goal #1 Meet at least 80% of energy and protein needs via TF Anticipated Discharge Needs: TF Follow-Up By: 09/15/19 Additional Comments FU for renal labs and TF tolerance
[2019-09-15] MEDS: INSULIN LISPRO 100 UNIT/ML SUB-Q SCH ×4 (01:05→18:25)
[2019-09-15] MEDS: PIPERACIL-TAZO 2.25 GM/50 ML 2.25 GM/50 ML BAG IV SCH ×3 (05:21→21:34)
[2019-09-15] MEDS: oxyCODONE /ACETAMINOPHEN 5-325MG TAB PO PRN (06:57)
[2019-09-15] MEDS: INSULIN NPH, HUMAN 100 UNIT/1 ML SUB-Q SCH ×2 (08:27→18:25)
[2019-09-15 08:30] LABS: Calcium 7.8 mg/dL (8.4-10.2)
[2019-09-15] MEDS: levETIRAcetam 500 MG/5 ML ORAL LIQD FEEDTUBE SCH ×2 (10:18→21:31)
[2019-09-15] MEDS: HEPARIN 5,000 UNIT/1 ML VIAL SUB-Q SCH ×2 (10:18→21:31)
[2019-09-15] MEDS: ALPRAZolam 0.5 MG TAB PO SCH ×2 (10:18→21:34)
[2019-09-15] MEDS: FAMOTIDINE 20 MG TAB PO SCH (10:18)
[2019-09-15] MEDS: carvediloL 3.125 MG TAB PO SCH ×2 (10:19→21:31)
[2019-09-15] MEDS: ASPIRIN EC 325 MG TAB PO SCH (10:19)
--- NOTE | 2019-09-15 11:03 | Progress Note ---
Assessment and Plan Cultures: 08/20/2019 blood culture: No growth 08/20/2019 urine culture: No growth 09/09/2019 blood culture: E.faecalis 09/11/2019 blood culture: no growth A/P: 84-year-old female with hypertension, diabetes mellitus, coronary artery disease, indwelling AICD was admitted to the hospital on 08/20/2019 with generalized weakness. Upon evaluation, she was found to have no leukocytosis or fever. Labs showed acute renal failure along with transaminase elevation along with CK of 20K. On 08/25/2019, patient underwent right IJ PermCath insertion and was started on dialysis by nephrology, now with: #Persistent high fevers: Not present on admission. Patient x-ray does not show any obvious pneumonia. CT with b/l pleural effusions, no intra-abdominal process. Blood cultures: 07/12 E.faecalis. #E.faecalis bacteremia: / bottles. Suspect hepatobiliary source given RUQ US findings of CBD dilatation. TTE showed no obvious vegetations, repeat blood cultures are negative. Continue antibiotics #Acute encephalopathy: Multifactorial. #Acute renal failure: Now requiring dialysis. Renally dose antibiotics. #Elevated LFTs: Likely related to rhabdomyolysis: Trending down. Recs: Awaiting HIDA scan, to be done today per radiology note continue IV Zosyn, renally adjusted Magda Ybarra MD, FACP [facility] ([facility] C: [phone] O: [phone] F: [phone] Subjective Date of service: 09/15/19 Principal diagnosis: Neurogenic Dysphagia Interval history: No fever. Seems more awake today. No distress. Poor historian. Objective - Exam Narrative Exam: Physical Exam: Constitutional: awake, talking few words Head, Ears, Nose: Normocephalic, atraumatic. External ears, nose normal Eyes: Conjunctivae/corneas clear. No icterus. No ptosis. Neck: Supple, no meningeal signs Oral: unable to examine Cardiovascular: S1, S2 normal. No AICD tenderness Respiratory: clear, no crackles or wheeze GI: Soft, bowel sounds normal. No peritoneal signs. PEG + Musculoskeletal: No pedal edema, no cyanosis. HD cath + Skin: No rash or abscess Hem/Lymphatic: No palpable cervical or supraclavicular nodes. No lymphangitis Psych: calm. Neurological: more awake today, talking few words, no distress. - Constitutional Vitals: Vital Signs Temp Pulse Resp BP Pulse Ox 98.8 F 71 18 132/56 99 09/15/19 05:44 09/15/19 10:19 09/15/19 05:44 09/15/19 10:19 09/15/19 05:44 Temperature -Last 24 Hours Temperature 98.8 F Temperature 99.5 F Temperature 99.6 F Temperature 98.2 F - Labs CBC & Chem 7: 09/14/19 08:08 09/15/19 07:46 Labs: Abnormal lab results 09/14/19 09/14/19 09/15/19 Range/Units 12:00 17:06 01:11 BUN (7-17) mg/dL Creatinine (0.7-1.2) mg/dL Glucose (65-100) mg/dL POC Glucose 188 H 182 H 184 H (70-105) Calcium (8.4-10.2) mg/dL 09/15/19 09/15/19 09/15/19 Range/Units 05:09 06:21 07:46 BUN 53 H (7-17) mg/dL Creatinine 2.9 H (0.7-1.2) mg/dL Glucose 188 H (65-100) mg/dL POC Glucose 160 H 174 H (70-105) Calcium 7.8 L (8.4-10.2) mg/dL
--- NOTE | 2019-09-15 12:33 | Nuclear Medicine Report ---
NUCLEAR MEDICINE HEPATOBILIARY SCAN INDICATION: CBD dilation, bacteremia. TECHNIQUE: Radiotracer: Tc-99m mebrofenin (by IV): 4.89 mCi. Gallbladder Stimulant: None. FINDINGS: Hepatic activity: Normal. Biliary activity: Normal. Common bile duct activity at 10 minutes. Gallbladder activity: Normal at 15 minutes. Small bowel activity: Normal at 15 minutes. IMPRESSION: No biliary obstruction. Signer Name: Arian Perdomo Jr, MD Signed: 09/15/2019 12:28 PM Workstation Name: [id number]
--- NOTE | 2019-09-15 14:13 | Discharge Summary ---
Providers - Providers Date of Admission: 08/20/19 07:54 Attending physician: ALEJA FAM MD 08/20/19 07:43 Consult to Physician [CONS] Urgent Comment: DR JANETT GOMEZ W/DR CAREY @[id number] Consulting Provider: JAC CAREY Physician Instructions: Reason For Exam: Acute renal failure 08/20/19 18:35 Consult to Physician [CONS] Routine Comment: Consulting Provider: ERNESTO NORTH Physician Instructions: Reason For Exam: Transaminitis 08/23/19 08:46 Speech Therapy Evaluation and Treat [CONS] Urgent Reason For Exam: Difficulty swallowing 08/23/19 12:38 Consult to Dietitian/Nutrition [CONS] Routine Physician Instructions: Assess nutrtn needs, initiate, modify, manage TF Reason For Exam: Reason for Consult: Write/Manage Tube Feeding Reason for Consult: Write/Manage Tube Feeding 08/25/19 09:31 Consult to Physician [CONS] Routine Comment: Consulting Provider: DELANEY MARTIN Physician Instructions: Reason For Exam: JULIANO needs permacath for hemodialysis 08/28/19 11:29 Speech Therapy Evaluation and Treat [CONS] Routine Reason For Exam: aspiration risk 09/01/19 10:30 Physical Therapy Evaluation and Treat [CONS] Routine Comment: Reason For Exam: placement Speech Therapy Evaluation and Treat [CONS] Routine Reason For Exam: aspiration 09/02/19 14:36 Consult to Physician [CONS] Routine Comment: Consulting Provider: DELANEY ESQUEDA Physician Instructions: Reason For Exam: permcath placement 09/06/19 16:06 Consult to Physician [CONS] Routine Comment: Consulting Provider: DARION FULLER Physician Instructions: Reason For Exam: PEG placement 09/09/19 07:55 Consult to Physician [CONS] Routine Comment: Consulting Provider: DOMINICK VEGAS Physician Instructions: Reason For Exam: sepsis 09/10/19 10:03 Consult to Wound/ET Nurse [CONS] Routine Reason For Exam: wound eval 09/12/19 14:52 Consult to Dietitian/Nutrition [CONS] Routine Physician Instructions: Reason For Exam: Reason for Consult: Write/Manage Tube Feeding Primary care physician: PALLET SORTER Hospitalization Reason for admission: AMS Condition: Stable Hospital course: 84-year-old -[place] female patient with significant history of hypertension ,diabetes mellitus, coronary artery disease status post PCI ,CVA and seizure disorder Presented to the emergency room with complaints of generalized weakness, work-up is consistent with acute renal failure, acute liver failure, severe rhabdomyolysis due to statin use, non-ST elevation NC, severe metabolic encephalopathy, multiple specialists are following the patient. * During the course of hospitalization patient was started on hemodialysis with noted improvement in rhabdomyolysis and also mental status. She continues to require hemodialysis. * Statin was discontinued as this was felt to be the inciting factor * Initially there was a discussion for speech evaluation which was done with recommendation for pured diet unfortunately the patient has not been tolerating this and requiring surgical consult to consider PEG placement per the family. Family also made the patient a DNR at this time. * Patient has a history of CVA with residual weakness although was ambulatory prior to this hospitalization. * Once nutritional pathways achieved and outpatient dialysis achieved patient can be discharged Important active issues: 1. Worsening renal function; nephrology initiated hemodialysis - need outpt setup 2. Severe rhabdomyolysis; with renal and liver failure due to statin, improving 3. Acute liver failure/transaminitis - trending down 4. Non-ST elevation NC; medical Mx 5. Acute encephalopathy, improved, placed on pureed diet 6. Poor p.o. intake: PEG placement recommended : Currently unable to tolerate PO. continue HD, check chxr considering low grade temp although resolved now. GI consulted for Tube feed placement, family again states that they want PEG Tube. Aspiration precautions, keep HOB elevated. 09/07/19: Noted to have significant blood loss with hemoglobin down to 6.2. 1 unit packed red blood cells transfused. Discontinued Plavix discussed with GI anticipate PEG placement soon. Family not available at this time will like to discuss possible hospice with them. Patient very lethargic remote markedly decompensated 09/08: Noted fever, ID consulted, Sepsis work up ongoing. Check labs, anticipating PEG placement in 2 days. Repeat hemoglobin still 6.7 will give additional unit of blood. We will also obtain a CT abdomen and pelvis with oral contrast to further evaluate for possible underlining ischemic colitis. 09/09: Patient still with repeated fever overnight. CT of the abdomen and pelvis with oral contrast was negative for ischemic colitis. Will check Doppler both legs to rule out DVT. Still awaiting to speak with family as none is present at this time. Attempts made to call discussed with case management. Sepsis work- up continues at this point there is no obvious source 09/10:Continue dialysis and Sepsis work up. BLOOD CULTURES positive and being rechecked to ensure clearance. Discussed with the patients family, they understand the severity of the illness and will discuss when discharged. 09/11. PEG placement done, starting tube feeds. Flagyl added. MRCP ordered to eval hepatobiliary source for E.faecalis bacteremia 09/13/19: HIDA rather than MRI as patient has Pacemaker. Family advised. still awaiting dialysis chair time. Efaecalis may have been a contaminant as other labs 09/14/19: Replace potassium as patient noted to have hypokalemia HIDA rather than MRI as patient has Pacemaker. Family advised. still awaiting dialysis chair time. Efaecalis may have been a contaminant as other labs 09/14: HIDA RETURNED NEGATIVE. Plan is to complete Vancomycin 500 Post HD. to complete 14 days. She was on Zosyn in patient. sepsis secondary to E Fecalis Bactermia- Unclear sources. HIDA and Echo negati ve. Not Present on admission /Acute kidney injury; likely ATN - Continue on HD /Rhabdomyolysis; likely from statin /Transaminitis; unknown etiology - trending down with normal ele Hepatitis panel negative, no stone in abdominal ultrasound + biliary sludge, no cholecystitis, dilated common bile duct GI following, unable to do MRI due to ICD Management supportive per GI /Metabolic encephalopathy; multifactorial - improved Uremia, transaminitis, acidosis, advanced age with underlying dementia Patient is lethargic but alert, Dobbhoff in place For medications and tube feeding cont supportive care, s/p repeat CT head showed no acute CVA speech eval ordered - recommended pureed diet with nectar thick liquid but patient failed /Metabolic acidosis: due acute kidney injury, mgt per neurology - placed on hCO3 drip, now also on HD /Severe hypokalemia; replace and recheck in a.m. Closely monitor electrolytes and replete as needed /Non-ST elevation NC; In the setting of acute renal failure and acute rhabdo could be NSTEMI 2 However patient has risk factors, coronary artery disease - status post PCI in 2013 monitore with Serial cardiac enzymes, antiplatelets, beta-blockers echocardiogram, Cardiology evaluated - no cardiac work-up intended /Coronary artery disease status post PCI /ICD in place; monitor, cardiology evaluation if needed /Dyslipidemia; hold statin in view of rhabdo/transaminitis /Type 2 diabetes mellitus; Accu-Chek sliding scale coverage ADA diet, insulin as needed /History of seizure disorder; seizure precautions Continue Keppra /Anemia-was transfused 1 unit packed red blood cell /Severe protein calorie malnutrition Dietitian consult /hypertension; moderate control Continue current antihypertensives and PRN medications --DVT prophylaxis; heparin renal dose --DNR -- Discussed with son Disposition; patient is appropriate for hospice. If the family does not accept hospice patient can be discharged to SNF after PEG tube placed which is scheduled on 09/11/2019 because the patient has been on Eliquis. Poor prognosis Disposition: DC/[place]-03 SNF W [facility] CERT Time spent for discharge: 35 mins Core Measure Documentation - Palliative Care Palliative Care/ Comfort Measures: Not Applicable - Core Measures Any of the following diagnoses?: none Exam - Physical Exam Narrative exam: VITAL SIGNS: Reviewed. GENERAL: The patient appears chronically ill, lethargic, favors the left side. Very weak vital signs as documented. HEAD: No signs of head trauma. EYES: Pupils are equal. Extraocular motions intact. EARS: Hearing grossly intact. MOUTH: Left facial droop NECK: No adenopathy, no JVD. CHEST: Chest with diminished breath sounds bilaterally. No wheezes, rales, or rhonchi. CARDIAC: Regular rate and rhythm. S1 and S2, without murmurs, gallops, or rubs. VASCULAR: No Edema. Peripheral pulses normal and equal in all extremities. ABDOMEN: Soft, non tender and non distended. No rebound or guarding, and no masses palpated. Bowel Sounds normal. MUSCULOSKELETAL: Extremities without clubbing, cyanosis or edema. NEUROLOGIC EXAM: Awake but lethargic and oriented x 3. more strength. No focal sensory or strength deficits on right but left sided is weak. Speech labored. Follows some commands but very lethargic, Now able to move lower extremities . PSYCHIATRIC: Mood unable to access SKIN: detail exam as documented in skin assessment - Constitutional Vitals: Temp Pulse Resp BP Pulse Ox 98.8 F 71 18 132/56 99 09/15/19 05:44 09/15/19 10:19 09/15/19 05:44 09/15/19 10:19 09/15/19 05:44 Plan Activity: advance as tolerated, fall precautions Diet: low fat, low salt, diabetic, renal Special Instructions: record daily weights, record daily BP diary, record blood sugar diary Additional Instructions: Antibitoitcs per ID Follow up with: PRIMARY MD EDIE [Primary Care Provider] - 3-5 Days DOMINICK VEGAS MD [Staff Physician] - 7 Days CYNTHIA MARTINEZ MD [Staff Physician] - 7 Days EPHRAIM LUGO MD [Staff Physician] - 14 Days Prescriptions: Oxycodone HCl/Acetaminophen [Percocet 7.5/325 mg] 1 each PO Q6HR PRN #20 tablet PRN Reason: Pain
--- NOTE | 2019-09-15 14:43 | Progress Note ---
Assessment and Plan - Patient Problems (1) Acute renal failure Current Visit: Yes Status: Acute Plan to address problem: Likely ATN in the setting of rhabdomysolysis. With no renal recovery noted, patient was started on HD. Has Permcath placed, and tolerated HD at this time.Patient set up for outpatient HD at [facility] on a MWF schedule. Will follow up as an outpatient to monitor for signs of renal recovery. (2) Hypertensive chronic kidney disease with stage 1 through stage 4 chronic kidney disease, or unspecified chronic kidney disease Current Visit: Yes Status: Acute Plan to address problem: Patient only on low dose of carvedilol 3.25 mg BID. Need to ensure that patient is not receiving medication prior to her dialysis treatment. Will monitor closely. (3) Type 2 diabetes mellitus with diabetic chronic kidney disease Current Visit: Yes Status: Chronic Plan to address problem: DM management per primary attending. (4) Metabolic acidosis Current Visit: Yes Status: Acute Plan to address problem: Stable at this time with HD. (5) Encephalopathy acute Current Visit: Yes Status: Acute Plan to address problem: Improvement with HD. (6) Anemia Current Visit: Yes Status: Acute Plan to address problem: To continue receiving ARCENIO therapy with HD with close monitoring. Subjective Date of service: 09/15/19 Principal diagnosis: Neurogenic Dysphagia Interval history: No acute events overnight. Pending DC today to [facility]. Patient set up with [facility] for HD on a MWF schedule. Objective - Vital Signs Vital signs: Vital Signs - 12hr 09/15/19 09/15/19 09/15/19 05:44 08:00 10:19 Temperature 98.8 F Pulse Rate 71 71 Respiratory 18 Rate Blood Pressure 134/45 132/56 O2 Sat by Pulse 99 96 Oximetry - General Appearance General appearance: chronically ill, frail EENT: ATNC, PERRL Neck: no JVD Respiratory: Present: Clear to Ascultation, Normal Exam Cardiology: regular, S1S2 Gastrointestinal: normal Integumentary: no rash Neurologic: no focal deficit Psychiatric: cooperative - Lab 09/14/19 08:08 09/15/19 07:46 Most recent lab results Calcium 7.8 mg/dL (8.4-10.2) L 09/15/19 07:46 Magnesium 2.00 mg/dL (1.7-2.3) 08/25/19 07:01 Urine Creatinine 102.1 mg/dL (0.1-20.0) H 08/21/19 20:00 Urine Sodium 44 mmol/L 08/21/19 10:06 Urine Total Protein 176 mg/dL (5-11.8) H 08/21/19 20:00 - Allied health notes Allied health notes reviewed: nursing Medications & Allergies - Medications Allergies/Adverse Reactions: Allergies No Known Allergies Allergy (Verified 11/29/13 10:39) Home Medications: Home Medications Medication Instructions Recorded Confirmed Last Taken Type ALPRAZolam [Xanax TAB] 0.5 mg PO BID 03/21/13 08/20/19 01/29/14 History Amlodipine Bes/Olmesartan Med 2.5 mg PO QDAY 03/21/13 08/20/19 1 Day Ago History [Shekhar 10-20 mg] ~08/19/19 Glimepiride [Amaryl] 2 mg PO QAM 03/21/13 08/20/19 1 Day Ago History ~08/19/19 2 mg Atorvastatin [Lipitor] 40 mg PO QHS 11/13/13 08/20/19 01/29/14 History Aspirin EC [Ecotrin] 325 mg PO QDAY #30 tablet 02/08/14 08/20/19 Unknown Rx Clopidogrel [Plavix] 75 mg PO QDAY #30 tablet 02/08/14 08/20/19 Unknown Rx Pantoprazole [Protonix TAB] 40 mg PO QDAY #30 tablet 02/08/14 08/20/19 1 Day Ago Rx ~08/19/19 40 mg carvediloL [Coreg] 3.125 mg PO BID #60 tablet 02/08/14 08/20/19 Unknown Rx levETIRAcetam [Keppra TAB] 1,500 mg PO BID 08/20/19 08/20/19 Unknown History Citalopram [Celexa] 40 mg PO QDAY 08/22/19 08/22/19 Unknown History ALPRAZolam [Xanax TAB] 0.5 mg PO BID tablet 09/15/19 Unknown Rx Oxycodone HCl/Acetaminophen 1 each PO Q6HR PRN #20 tablet 09/15/19 Unknown Rx [Percocet 7.5/325 mg] Active Medications: Generic Name Dose Route Start Last Admin Trade Name Freq PRN Reason Stop Dose Admin Acetaminophen 650 mg 09/09/19 20:46 09/11/19 23:06 Tylenol PO 650 mg Q6H PRN Administration Pain, Mild (1-3) Alprazolam 0.5 mg 08/20/19 10:00 09/15/19 10:18 Xanax PO 0.5 mg BID SHARON Administration Lipase/Protease/Amylase 1 each 09/13/19 09:[address] 10,500 Unit FEEDTUBE PRN PRN For Clogged Feeding Tube Aspirin 325 mg 08/20/19 10:00 09/15/19 10:19 Ecotrin PO 325 mg QDAY SHARON Administration Carvedilol 3.125 mg 08/20/19 22:00 09/15/19 10:19 Coreg PO 3.125 mg BID SHARON Administration Epoetin Rahul 10,000 unit 08/25/19 09:32 09/11/19 11:55 Procrit IV 10,000 unit DESIRAE PRN Administration hemodialysis Famotidine 20 mg 09/01/19 10:00 09/15/19 10:18 Pepcid PO 20 mg DAILY SHARON Administration Heparin Sodium (Porcine) 5,000 unit 08/25/19 09:32 09/06/19 13:31 Heparin IV 5,000 unit DESIRAE PRN Administration hemodialysis Heparin Sodium (Porcine) 5,000 unit 09/08/19 22:00 09/15/19 10:18 Heparin SUB-Q 5,000 unit Q12HR SHARON Administration Hydralazine HCl 10 mg 08/20/19 09:00 08/26/19 20:15 Apresoline IV 10 mg Q4HR PRN Administration Hypertension Sodium Chloride 100 mls @ 999 mls/hr 09/02/19 09:30 Nacl 0.9% IV DESIRAE PRN Hypotension Sodium Chloride 1,000 mls @ 50 mls/hr 09/12/19 09:00 09/12/19 10:23 Nacl 0.9% 1000 Ml IV 50 mls/hr DIRECT SHARON Administration Piperacillin Sod/Tazobactam Sod 2.25 gm in 50 mls @ 100 mls/hr 09/13/19 13:00 09/15/19 14:32 Zosyn/Ns 2.25 Gm/50ml IV 100 mls/hr Q8H SHARON Administration Protocol Sodium Chloride 100 mls @ 999 mls/hr 09/14/19 12:12 Nacl 0.9% IV DESIRAE PRN Hypotension Insulin Human Lispro 0 unit 09/06/19 12:00 09/15/19 12:00 Humalog SUB-Q Not Given Q6HR [facility] Protocol Insulin Human NPH 15 unit 08/31/19 17:00 09/15/19 08:27 Humulin N SUB-Q Not Given BIDDIAB SHARON Levetiracetam 1,500 mg 08/23/19 22:00 09/15/19 10:18 Keppra FEEDTUBE 1,500 mg BID SHARON Administration Nitroglycerin 0.4 mg 08/20/19 19:00 Nitrostat SL .Q5MIN PRN Chest Pain Oxycodone/Acetaminophen 1 tab 08/21/19 20:37 09/15/19 06:57 Percocet 5/325 PO 1 tab Q6H PRN Administration Pain, Moderate (4-6) Simple Syrup 15 ml 09/13/19 09:33 Simple Syrup FEEDTUBE PRN PRN Hypoglycemia Simple Syrup 30 ml 09/13/19 09:33 Simple Syrup FEEDTUBE PRN PRN Hypoglycemia Sodium Bicarbonate 325 mg 09/13/19 09:33 Sodium Bicarbonate FEEDTUBE PRN PRN For Clogged Feeding Tube
[2019-09-16] MEDS: INSULIN LISPRO 100 UNIT/ML SUB-Q SCH ×5 (00:13→22:25)
[2019-09-16] MEDS: PIPERACIL-TAZO 2.25 GM/50 ML 2.25 GM/50 ML BAG IV SCH ×3 (06:23→22:16)
--- NOTE | 2019-09-16 08:51 | Progress Note ---
Assessment and Plan - Patient Problems (1) Acute renal failure Current Visit: Yes Status: Acute Plan to address problem: Likely ATN in the setting of rhabdomysolysis. With no renal recovery noted, patient was started on HD. Remains on a TTS HD schedule as an inpatient. Has Permcath placed, and tolerated HD at this time.Patient set up for outpatient HD at [facility] on a MWF schedule. Will follow up as an outpatient to monitor for signs of renal recovery. (2) Hypertensive chronic kidney disease with stage 1 through stage 4 chronic kidney disease, or unspecified chronic kidney disease Current Visit: Yes Status: Acute Plan to address problem: Patient only on low dose of carvedilol 3.25 mg BID. Need to ensure that patient is not receiving medication prior to her dialysis treatment. Will monitor closely. (3) Type 2 diabetes mellitus with diabetic chronic kidney disease Current Visit: Yes Status: Chronic Plan to address problem: DM management per primary attending. (4) Metabolic acidosis Current Visit: Yes Status: Acute Plan to address problem: Stable at this time with HD. (5) Encephalopathy acute Current Visit: Yes Status: Acute Plan to address problem: Improvement with HD. (6) Anemia Current Visit: Yes Status: Acute Plan to address problem: To continue receiving ARCENIO therapy with HD with close monitoring. Subjective Date of service: 09/16/19 Principal diagnosis: Neurogenic Dysphagia Interval history: Pending DC to [facility]. Per CM note, she has been accepted at [facility] on a MWF HD schedule. Objective - Vital Signs Vital signs: Vital Signs - 12hr 09/15/19 09/16/19 09/16/19 21:31 00:00 04:43 Temperature 98.7 F 99.0 F Pulse Rate 70 70 73 Respiratory 24 24 Rate Blood Pressure 146/61 147/55 Blood Pressure 149/61 [Right] O2 Sat by Pulse 96 97 Oximetry 09/16/19 08:14 Temperature Pulse Rate Respiratory Rate Blood Pressure Blood Pressure [Right] O2 Sat by Pulse 100 Oximetry - General Appearance General appearance: chronically ill, frail EENT: ATNC, PERRL Neck: no JVD Respiratory: Present: Clear to Ascultation Cardiology: regular, S1S2 Gastrointestinal: normal Integumentary: warm and dry Musculoskeletal: deferred - Lab 09/14/19 08:08 09/15/19 07:46 Most recent lab results Calcium 7.8 mg/dL (8.4-10.2) L 09/15/19 07:46 Magnesium 2.00 mg/dL (1.7-2.3) 08/25/19 07:01 Urine Creatinine 102.1 mg/dL (0.1-20.0) H 08/21/19 20:00 Urine Sodium 44 mmol/L 08/21/19 10:06 Urine Total Protein 176 mg/dL (5-11.8) H 08/21/19 20:00 - Allied health notes Allied health notes reviewed: nursing Medications & Allergies - Medications Allergies/Adverse Reactions: Allergies No Known Allergies Allergy (Verified 11/29/13 10:39) Home Medications: Home Medications Medication Instructions Recorded Confirmed Last Taken Type ALPRAZolam [Xanax TAB] 0.5 mg PO BID 03/21/13 08/20/19 01/29/14 History Amlodipine Bes/Olmesartan Med 2.5 mg PO QDAY 03/21/13 08/20/19 1 Day Ago History [Shekhar 10-20 mg] ~08/19/19 Glimepiride [Amaryl] 2 mg PO QAM 03/21/13 08/20/19 1 Day Ago History ~08/19/19 2 mg Atorvastatin [Lipitor] 40 mg PO QHS 11/13/13 08/20/19 01/29/14 History Aspirin EC [Ecotrin] 325 mg PO QDAY #30 tablet 02/08/14 08/20/19 Unknown Rx Clopidogrel [Plavix] 75 mg PO QDAY #30 tablet 02/08/14 08/20/19 Unknown Rx Pantoprazole [Protonix TAB] 40 mg PO QDAY #30 tablet 02/08/14 08/20/19 1 Day Ago Rx ~08/19/19 40 mg carvediloL [Coreg] 3.125 mg PO BID #60 tablet 02/08/14 08/20/19 Unknown Rx levETIRAcetam [Keppra TAB] 1,500 mg PO BID 08/20/19 08/20/19 Unknown History Citalopram [Celexa] 40 mg PO QDAY 08/22/19 08/22/19 Unknown History ALPRAZolam [Xanax TAB] 0.5 mg PO BID tablet 09/15/19 Unknown Rx Oxycodone HCl/Acetaminophen 1 each PO Q6HR PRN #20 tablet 09/15/19 Unknown Rx [Percocet 7.5/325 mg] Active Medications: Generic Name Dose Route Start Last Admin Trade Name Javi PRN Reason Stop Dose Admin Acetaminophen 650 mg 09/09/19 20:46 09/11/19 23:06 Tylenol PO 650 mg Q6H PRN Administration Pain, Mild (1-3) Alprazolam 0.5 mg 08/20/19 10:00 09/15/19 21:34 Xanax PO Not Given BID SHARON Lipase/Protease/Amylase 1 each 09/13/19 09:[address] 10,500 Unit FEEDTUBE PRN PRN For Clogged Feeding Tube Aspirin 325 mg 08/20/19 10:00 09/15/19 10:19 Ecotrin PO 325 mg QDAY SHARON Administration Carvedilol 3.125 mg 08/20/19 22:00 09/15/19 21:31 Coreg PO 3.125 mg BID SHARON Administration Epoetin Rahul 10,000 unit 08/25/19 09:32 09/11/19 11:55 Procrit IV 10,000 unit DESIRAE PRN Administration hemodialysis Famotidine 20 mg 09/01/19 10:00 09/15/19 10:18 Pepcid PO 20 mg DAILY SHARON Administration Heparin Sodium (Porcine) 5,000 unit 08/25/19 09:32 09/06/19 13:31 Heparin IV 5,000 unit DESIRAE PRN Administration hemodialysis Heparin Sodium (Porcine) 5,000 unit 09/08/19 22:00 09/15/19 21:31 Heparin SUB-Q 5,000 unit Q12HR SHARON Administration Hydralazine HCl 10 mg 08/20/19 09:00 08/26/19 20:15 Apresoline IV 10 mg Q4HR PRN Administration Hypertension Sodium Chloride 1,000 mls @ 50 mls/hr 09/12/19 09:00 09/12/19 10:23 Nacl 0.9% 1000 Ml IV 50 mls/hr DIRECT SHARON Administration Piperacillin Sod/Tazobactam Sod 2.25 gm in 50 mls @ 100 mls/hr 09/13/19 13:00 09/16/19 06:23 Zosyn/Ns 2.25 Gm/50ml IV 100 mls/hr Q8H SHARON Administration Protocol Sodium Chloride 100 mls @ 999 mls/hr 09/14/19 12:12 Nacl 0.9% IV DESIRAE PRN Hypotension Insulin Human Lispro 0 unit 09/06/19 12:00 09/16/19 06:24 Humalog SUB-Q 2 unit Q6HR SHARON Administration Protocol Insulin Human NPH 15 unit 08/31/19 17:00 09/15/19 18:25 Humulin N SUB-Q 15 unit BIDDIAB SHARON Administration Levetiracetam 1,500 mg 08/23/19 22:00 09/15/19 21:31 Keppra FEEDTUBE 1,500 mg BID SHARON Administration Nitroglycerin 0.4 mg 08/20/19 19:00 Nitrostat SL .Q5MIN PRN Chest Pain Oxycodone/Acetaminophen 1 tab 08/21/19 20:37 09/15/19 06:57 Percocet 5/325 PO 1 tab Q6H PRN Administration Pain, Moderate (4-6) Simple Syrup 15 ml 09/13/19 09:33 Simple Syrup FEEDTUBE PRN PRN Hypoglycemia Simple Syrup 30 ml 09/13/19 09:33 Simple Syrup FEEDTUBE PRN PRN Hypoglycemia Sodium Bicarbonate 325 mg 09/13/19 09:33 Sodium Bicarbonate FEEDTUBE PRN PRN For Clogged Feeding Tube
[2019-09-16] MEDS: HEPARIN 5,000 UNIT/1 ML VIAL SUB-Q SCH ×2 (09:09→22:15)
[2019-09-16] MEDS: levETIRAcetam 500 MG/5 ML ORAL LIQD FEEDTUBE SCH ×2 (09:09→22:15)
[2019-09-16] MEDS: INSULIN NPH, HUMAN 100 UNIT/1 ML SUB-Q SCH ×2 (09:09→17:51)
[2019-09-16] MEDS: ALPRAZolam 0.5 MG TAB PO SCH ×2 (09:09→22:25)
[2019-09-16] MEDS: FAMOTIDINE 20 MG TAB PO SCH (09:10)
[2019-09-16] MEDS: ASPIRIN EC 325 MG TAB PO SCH (09:10)
[2019-09-16] MEDS: carvediloL 3.125 MG TAB PO SCH ×2 (09:12→22:14)
--- NOTE | 2019-09-16 15:09 | Progress Note ---
Assessment and Plan Cultures: 08/20/2019 blood culture: No growth 08/20/2019 urine culture: No growth 09/09/2019 blood culture: E.faecalis 09/11/2019 blood culture: no growth A/P: 84-year-old female with hypertension, diabetes mellitus, coronary artery disease, indwelling AICD was admitted to the hospital on 08/20/2019 with generalized weakness. Upon evaluation, she was found to have no leukocytosis or fever. Labs showed acute renal failure along with transaminase elevation along with CK of 20K. On 08/25/2019, patient underwent right IJ PermCath insertion and was started on dialysis by nephrology, now with: #Persistent high fevers: Not present on admission. Patient x-ray does not show any obvious pneumonia. CT with b/l pleural effusions, no intra-abdominal process. Blood cultures: 07/12 E.faecalis. #E.faecalis bacteremia: 07/12 bottles. HIDA negative. TTE showed no obvious vegetations, repeat blood cultures are negative. Continue antibiotics. #Acute encephalopathy: Multifactorial. #Acute renal failure: Now requiring dialysis. Renally dose antibiotics. #Elevated LFTs: Likely related to rhabdomyolysis: Trending down. Recs: HIDA scan negative. Repeat blood cultures have remained negative. No need to remove HD cath. Plan is for d/c to [facility]. Would recommend post HD Vancomycin 500 mg IV after every dialysis session with end date of 09/25/2019. Magda Ybarra MD, FACP [facility] ([facility]) C: [phone] O: [phone] F: [phone] Subjective Date of service: 09/16/19 Principal diagnosis: Neurogenic Dysphagia Interval history: No fever. No distress. Poor historian. Objective - Exam Narrative Exam: Physical Exam: Constitutional: awake,no distress Head, Ears, Nose: Normocephalic, atraumatic. External ears, nose normal Eyes: Conjunctivae/corneas clear. No icterus. No ptosis. Neck: Supple, no meningeal signs Oral: unable to examine Cardiovascular: S1, S2 normal. No AICD tenderness Respiratory: clear, no crackles or wheeze GI: Soft, bowel sounds normal. No peritoneal signs. PEG + Musculoskeletal: No pedal edema, no cyanosis. HD cath + Skin: No rash or abscess Hem/Lymphatic: No palpable cervical or supraclavicular nodes. No lymphangitis Psych: calm. no agitation Neurological: more awake today, talking few words, no distress. - Constitutional Vitals: Vital Signs Temp Pulse Resp BP Pulse Ox 99.0 F 70 24 140/60 100 09/16/19 04:43 09/16/19 09:12 09/16/19 04:43 09/16/19 09:12 09/16/19 08:14 Temperature -Last 24 Hours Temperature 99.0 F Temperature 98.7 F Temperature 98.1 F - Labs CBC & Chem 7: 09/14/19 08:08 09/15/19 07:46 Labs: Abnormal lab results 09/15/19 09/15/19 09/16/19 Range/Units 13:14 17:15 00:08 POC Glucose 167 H 153 H 176 H (70-105) 09/16/19 Range/Units 05:59 POC Glucose 182 H (70-105)
--- NOTE | 2019-09-16 15:14 | Progress Note ---
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 She was found to have elevated troponin T of 0.224, CPK level was over 20,000 consistent with severe rhabdomyolysis, acute renal failure with a creatinine of 5.9, there was hypokalemia with a potassium of 2.4, and moderate elevation in the liver transaminases. She was diagnosis with type 2 OK, ARF with uremia and metabolic acidosis, Severe hypokalemia, transaminititis, rhabdomyolysis. She was initiated on hemodialysis, I believe on 09/04/2019 after VasCath placed. She had PEG tube placed on 09/12/2019. During hospital coarse, she had isolated fever of 100.7F on 08/26/2019 and then persistent fevers returned on 09/05/2019. ID was consulted on 09/09/2019. She was found to E.faecalis bacteremia: / bottles. Suspect hepatobiliary source given RUQ US findings of CBD dilatation. GI following, unable to due MRI abd due to AICD; TTE showed no obvious vegetations, repeat blood cultures are negative. During the course of hospitalization patient was started on hemodialysis with noted improvement in rhabdomyolysis and also mental status. She continues to require hemodialysis. Statin was discontinued as this was felt to be the inciting factor; Initially there was a discussion for speech evaluation which was done with recommendation for pured diet unfortunately the patient did not tolerating this and PEG tube placed. Family also made the patient a DNR at this time. -Acute metabolic encephalopathy, poa due to ARF, rhabdo etc... -Sepsis secondary to E Fecalis Bactermia- Unclear sources. HIDA and Echo negative. Not Present on admission: treated with IV zosyn, ID following -Acute kidney injury; likely ATN - Continue on HD -Rhabdomyolysis; likely from statin -Transaminitis; unknown etiology - trending down with normal ele -Dysphagia due to late effect of CVA and current illness, poa: s/p PEG tube -Metabolic acidosis: due acute kidney injury, mgt per neurology - placed on hCO3 drip, now also on HD -Severe hypokalemia; replaced; Closely monitor electrolytes and replete as needed -Type 2 OK; Cardiology evaluated and chose medical management -Coronary artery disease status post PCI -ICD in place; monitor, cardiology evaluation if needed -Dyslipidemia; hold statin in view of rhabdo/transaminitis -Type 2 diabetes mellitus; Accu-Chek sliding scale coverage, ADA diet, insulin as needed -History of seizure disorder; seizure precautions, Continue Keppra -Acute on chronic Anemia of chronic illness-was transfused 1 unit packed red blood cell -Severe protein calorie malnutrition, poa: Dietitian consulted -Hypertension; moderate control: Continue current antihypertensives and PRN medications -DVT prophylaxis; heparin renal dose -DNR -Disposition; continue inpatient care, patient is appropriate for hospice, await Insurance authorization to [facility] 09/16/2019: Day 27, my first day with patient. Awaiting SNF place History Interval history: Patient was seen and examined. Follow-up on current diagnosis of ARF. Overnight uneventful as no events directly reported to me. Patient denies any chest pain, shortness breath, nausea/vomiting or severe headaches. Imaging, nursing note, chart, labs and old chart reviewed. Discussed with patient. Hospitalist Physical - Physical exam Narrative exam: Gen: WDWN, NAD, Awake, Alert, Orientated x 1.5 to self and knows she is in hospital but doesn't know which one HEENT: NCAT, EOMI, PERRL, OP Clear Neck: supple, no adenopathy, no thyromegaly, no JVD CVS/Heart: RRR, normal S1S2, pulses present bilaterally Chest/Lungs: diminished bs bilateral, Symmetrical chest expansion, good air entry bilaterally GI/Abdomen: soft,peg intact, good bowel sounds, no guarding or rebound /Bladder: no suprapubic tenderness, no CVA or paraspinal tenderness Extermity/Skin: no c/c/e, no obvious rash MSK: FROM x 3 Neuro: CN 2-12 grossly intact, no new focal deficits Psych: calm - Constitutional Vitals: Temp Pulse Resp BP Pulse Ox 99.0 F 70 24 140/60 100 09/16/19 04:43 09/16/19 09:12 09/16/19 04:43 09/16/19 09:12 09/16/19 08:14 General appearance: Present: no acute distress, well-nourished. Absent: mild distress, other Results - Labs CBC & Chem 7: 09/14/19 08:08 09/15/19 07:46 Labs: Laboratory Last Values WBC 15.3 K/mm3 (4.5-11.0) H 09/14/19 08:08 RBC 2.78 M/mm3 (3.65-5.03) L 09/14/19 08:08 Hgb 8.5 gm/dl (10.1-14.3) L 09/14/19 08:08 Hct 26.0 % (30.3-42.9) L 09/14/19 08:08 MCV 94 fl (79-97) 09/14/19 08:08 MCH 31 pg (28-32) 09/14/19 08:08 MCHC 33 % (30-34) 09/14/19 08:08 RDW 19.1 % (13.2-15.2) H 09/14/19 08:08 Plt Count 277 K/mm3 (140-440) 09/14/19 08:08 Lymph % (Auto) 6.4 % (13.4-35.0) L 09/12/19 04:43 Sargent % (Auto) 7.0 % (0.0-7.3) 09/12/19 04:43 Eos % (Auto) 0.6 % (0.0-4.3) 09/12/19 04:43 Baso % (Auto) 0.2 % (0.0-1.8) 09/12/19 04:43 Lymph # 1.0 K/mm3 (1.2-5.4) L 09/12/19 04:43 Sargent # 1.1 K/mm3 (0.0-0.8) H 09/12/19 04:43 Eos # 0.1 K/mm3 (0.0-0.4) 09/12/19 04:43 Baso # 0.0 K/mm3 (0.0-0.1) 09/12/19 04:43 Seg Neutrophils % 85.8 % (40.0-70.0) H 09/12/19 04:43 Seg Neutrophils # 13.4 K/mm3 (1.8-7.7) H 09/12/19 04:43 PT 16.2 Sec. (12.2-14.9) H 09/12/19 04:43 INR 1.28 (0.87-1.13) H 09/12/19 04:43 APTT 59.6 Sec. (24.2-36.6) H 08/20/19 23:09 Heparin Anti-Xa Level 0.18 U.I./ml (0.3-0.7) L 08/22/19 15:01 Sodium 140 mmol/L (137-145) 09/15/19 07:46 Potassium 3.8 mmol/L (3.6-5.0) D 09/15/19 07:46 Chloride 99.3 mmol/L (98-107) 09/15/19 07:46 Carbon Dioxide 23 mmol/L (22-30) 09/15/19 07:46 Anion Gap 22 mmol/L 09/15/19 07:46 BUN 53 mg/dL (7-17) H 09/15/19 07:46 Creatinine 2.9 mg/dL (0.7-1.2) H 09/15/19 07:46 Estimated GFR 19 ml/min 09/15/19 07:46 BUN/Creatinine Ratio 18 % 09/15/19 07:46 Glucose 188 mg/dL (65-100) H 09/15/19 07:46 POC Glucose 182 (70-105) H 09/16/19 05:59 Lactic Acid 1.60 mmol/L (0.7-2.0) 09/09/19 14:26 Calcium 7.8 mg/dL (8.4-10.2) L 09/15/19 07:46 Magnesium 2.00 mg/dL (1.7-2.3) 08/25/19 07:01 Total Bilirubin 0.20 mg/dL (0.1-1.2) 09/09/19 10:30 Direct Bilirubin < 0.2 mg/dL (0-0.2) 08/31/19 09:47 Indirect Bilirubin 0.1 mg/dL 08/31/19 09:47 AST 21 units/L (5-40) 09/09/19 10:30 ALT 64 units/L (7-56) H 09/09/19 10:30 Alkaline Phosphatase 71 units/L (35-129) 09/09/19 10:30 Ammonia 48.0 umol/L (25-60) 09/05/19 09:07 Total Creatine Kinase 599 units/L (30-135) H 09/06/19 Unknown CK-MB (CK-2) 73.0 ng/mL (0.0-4.0) H 08/21/19 05:35 CK-MB (CK-2) Rel Index 0.3 (0-4) 08/21/19 05:35 Troponin T 0.196 ng/mL (0.00-0.029) H* 08/21/19 05:35 Total Protein 5.3 g/dL (6.3-8.2) L 09/09/19 10:30 Albumin 1.9 g/dL (3.9-5) L 09/09/19 10:30 Albumin/Globulin Ratio 0.6 % 09/09/19 10:30 Triglycerides 125 mg/dL (2-149) 08/20/19 06:11 Cholesterol 89 mg/dL (50-199) 08/20/19 06:11 LDL Cholesterol Direct 45 mg/dL (50-130) L 08/20/19 06:11 HDL Cholesterol 25 mg/dL (40-59) L 08/20/19 06:11 Cholesterol/HDL Ratio 3.56 % 08/20/19 06:11 Urine Color Red (Yellow) 08/20/19 07:38 Urine Turbidity Cloudy (Clear) 08/20/19 07:38 Urine pH 5.0 (5.0-7.0) 08/20/19 07:38 Ur Specific [place] 1.013 (1.003-1.030) 08/20/19 07:38 Urine Protein 100 mg/dl mg/dL (Negative) 08/20/19 07:38 Urine Glucose (UA) Neg mg/dL (Negative) 08/20/19 07:38 Urine Ketones Neg mg/dL (Negative) 08/20/19 07:38 Urine Blood Lg (Negative) 08/20/19 07:38 Urine Nitrite Neg (Negative) 08/20/19 07:38 Urine Bilirubin Neg (Negative) 08/20/19 07:38 Urine Urobilinogen < 2.0 mg/dL (<2.0) 08/20/19 07:38 Ur Leukocyte Esterase Sm (Negative) 08/20/19 07:38 Urine WBC (Auto) 25.0 /HPF (0.0-6.0) H 08/20/19 07:38 Urine RBC (Auto) 4.0 /HPF (0.0-6.0) 08/20/19 07:38 U Epithel Cells (Auto) 3.0 /HPF (0-13.0) 08/20/19 07:38 Urine Bacteria (Auto) 1+ /HPF (Negative) 08/20/19 07:38 Amorphous Crystals Few 08/20/19 07:38 Urine Creatinine 102.1 mg/dL (0.1-20.0) H 08/21/19 20:00 Protein/Creatinin Ratio 1.72 08/21/19 20:00 Urine Sodium 44 mmol/L 08/21/19 10:06 Urine Potassium 23.15 mmol/L 08/21/19 10:06 Urine Chloride 22.8 mmolL (110-250) L 08/21/19 10:06 Urine Total Protein 176 mg/dL (5-11.8) H 08/21/19 20:00 Random Vancomycin 11.5 ug/mL (0-40.0) 09/12/19 07:00 Urine Opiates Screen Presumptive positive 08/21/19 20:00 Urine Methadone Screen Presumptive negative 08/21/19 20:00 Acetaminophen < 5.0 ug/mL (10.0-30.0) L 08/22/19 04:34 Ur Barbiturates Screen Presumptive negative 08/21/19 20:00 Ur Phencyclidine Scrn Presumptive negative 08/21/19 20:00 Ur Amphetamines Screen Presumptive negative 08/21/19 20:00 U Benzodiazepines Scrn Presumptive positive 08/21/19 20:00 Urine Cocaine Screen Presumptive negative 08/21/19 20:00 U Marijuana (THC) Screen Presumptive negative 08/21/19 20:00 Drugs of Abuse Note Disclamer 08/21/19 20:00 Proteinase 3 (PR3) Ab <1.0 AI (<1.0) 08/21/19 08:51 Myeloperoxidase Ab <1.0 AI (<1.0) 08/21/19 08:51 Complement C3 136 mg/dL () 08/21/19 08:51 Complement C4 46 mg/dL () 08/21/19 08:51 Hepatitis A IgM Ab Non-reactive (NonReactive) 08/20/19 23:09 Hep Bs Antigen Non-reactive (Negative) 08/26/19 05:49 Hep B Core IgM Ab Non-reactive (NonReactive) 08/20/19 23:09 Hepatitis C Antibody Non-reactive (NonReactive) 08/26/19 05:49 Blood Type A POSITIVE 09/07/19 08:54 Antibody Screen Negative 09/07/19 08:54 Crossmatch See Detail 09/07/19 08:54 Active Medications - Current Medications Current Medications: Generic Name Dose Route Start Last Admin Trade Name Freq PRN Reason Stop Dose Admin Acetaminophen 650 mg 09/09/19 20:46 09/11/19 23:06 Tylenol PO 650 mg Q6H PRN Administration Pain, Mild (1-3) Alprazolam 0.5 mg 08/20/19 10:00 09/16/19 09:09 Xanax PO 0.5 mg BID SHARON Administration Lipase/Protease/Amylase 1 each 09/13/19 09:33 Pancreaze 10,500 Unit FEEDTUBE PRN PRN For Clogged Feeding Tube Aspirin 325 mg 08/20/19 10:00 09/16/19 09:10 Ecotrin PO 325 mg QDAY SHARON Administration Carvedilol 3.125 mg 08/20/19 22:00 09/16/19 09:12 Coreg PO 3.125 mg BID SHARON Administration Epoetin Rahul 10,000 unit 08/25/19 09:32 09/11/19 11:55 Procrit IV 10,000 unit DESIRAE PRN Administration hemodialysis Famotidine 20 mg 09/01/19 10:00 09/16/19 09:10 Pepcid PO 20 mg DAILY SHARON Administration Heparin Sodium (Porcine) 5,000 unit 08/25/19 09:32 09/06/19 13:31 Heparin IV 5,000 unit DESIRAE PRN Administration hemodialysis Heparin Sodium (Porcine) 5,000 unit 09/08/19 22:00 09/16/19 09:09 Heparin SUB-Q 5,000 unit Q12HR SHARON Administration Hydralazine HCl 10 mg 08/20/19 09:00 08/26/19 20:15 Apresoline IV 10 mg Q4HR PRN Administration Hypertension Sodium Chloride 1,000 mls @ 50 mls/hr 09/12/19 09:00 09/12/19 10:23 Nacl 0.9% 1000 Ml IV 50 mls/hr DIRECT SHARON Administration Piperacillin Sod/Tazobactam Sod 2.25 gm in 50 mls @ 100 mls/hr 09/13/19 13:00 09/16/19 14:05 Zosyn/Ns 2.25 Gm/50ml IV 100 mls/hr Q8H SHARON Administration Protocol Sodium Chloride 100 mls @ 999 mls/hr 09/14/19 12:12 Nacl 0.9% IV DESIRAE PRN Hypotension Insulin Human Lispro 0 unit 09/06/19 12:00 09/16/19 12:30 Humalog SUB-Q Not Given Q6HR SHARON Protocol Insulin Human NPH 15 unit 08/31/19 17:00 09/16/19 09:09 Humulin N SUB-Q 15 unit BIDDIAB SHARON Administration Levetiracetam 1,500 mg 08/23/19 22:00 09/16/19 09:09 Keppra FEEDTUBE 1,500 mg BID SHARON Administration Nitroglycerin 0.4 mg 08/20/19 19:00 Nitrostat SL .Q5MIN PRN Chest Pain Oxycodone/Acetaminophen 1 tab 08/21/19 20:37 09/15/19 06:57 Percocet 5/325 PO 1 tab Q6H PRN Administration Pain, Moderate (4-6) Simple Syrup 15 ml 09/13/19 09:33 Simple Syrup FEEDTUBE PRN PRN Hypoglycemia Simple Syrup 30 ml 09/13/19 09:33 Simple Syrup FEEDTUBE PRN PRN Hypoglycemia Sodium Bicarbonate 325 mg 09/13/19 09:33 Sodium Bicarbonate FEEDTUBE PRN PRN For Clogged Feeding Tube Nutrition/Malnutrition Assess - Dietary Evaluation Nutrition/Malnutrition Findings: Nutrition Notes Start: 08/22/19 10:11 Freq: Status: Active Protocol: Document 09/15/19 14:55 TRAVIS (Rec: 09/15/19 14:57 TRAVIS [email or web address]) Nutrition Notes Initial or Follow up Brief Note Subjective/Other Information Pt just returned from procedure (12:34). No TF infusing at this time. Nutrition Intervention Follow-Up By: 09/17/19 Additional Comments F/U: TF restart/goal rate/ tolerance, renal labs
[2019-09-16] MEDS ORDERED: SODIUM CHLORIDE*PRIMING MACHINE ONLY FOR DIALYSIS MC ONE (22:52)
[2019-09-17] MEDS: PIPERACIL-TAZO 2.25 GM/50 ML 2.25 GM/50 ML BAG IV SCH ×2 (06:09→16:22)
[2019-09-17] MEDS: INSULIN LISPRO 100 UNIT/ML SUB-Q SCH ×2 (06:13→13:23)
[2019-09-17] MEDS: levETIRAcetam 500 MG/5 ML ORAL LIQD FEEDTUBE SCH (09:42)
[2019-09-17] MEDS: ASPIRIN EC 325 MG TAB PO SCH (09:43)
[2019-09-17] MEDS: HEPARIN 5,000 UNIT/1 ML VIAL SUB-Q SCH (09:43)
[2019-09-17] MEDS: FAMOTIDINE 20 MG TAB PO SCH (09:43)
[2019-09-17] MEDS: INSULIN NPH, HUMAN 100 UNIT/1 ML SUB-Q SCH (09:43)
[2019-09-17] MEDS: ALPRAZolam 0.5 MG TAB PO SCH (09:43)
[2019-09-17] MEDS: carvediloL 3.125 MG TAB PO SCH (09:45)
[2019-09-17] MEDS ORDERED: SODIUM CHLORIDE 0.9% 100 ML IV PRN (10:30)
--- NOTE | 2019-09-17 10:32 | Progress Note ---
Assessment and Plan - Patient Problems (1) Acute renal failure Current Visit: Yes Status: Acute Plan to address problem: Likely ATN in the setting of rhabdomysolysis. With no renal recovery noted, patient was started on HD. Has Permcath placed, and tolerated HD at this time.Patient set up for outpatient HD at [facility] on a MWF schedule. Will follow up as an outpatient to monitor for signs of renal recovery. Plan for HD today, and then DC to rehab. (2) Hypertensive chronic kidney disease with stage 1 through stage 4 chronic k idney disease, or unspecified chronic kidney disease Current Visit: Yes Status: Acute Plan to address problem: Patient only on low dose of carvedilol 3.25 mg BID. Need to ensure that patient is not receiving medication prior to her dialysis treatment. Will monitor closely. (3) Type 2 diabetes mellitus with diabetic chronic kidney disease Current Visit: Yes Status: Chronic Plan to address problem: DM management per primary attending. (4) Metabolic acidosis Current Visit: Yes Status: Acute Plan to address problem: Stable at this time with HD. (5) Encephalopathy acute Current Visit: Yes Status: Acute Plan to address problem: Improvement with HD. (6) Anemia Current Visit: Yes Status: Acute Plan to address problem: To continue receiving ARCENIO therapy with HD with close monitoring. Subjective Date of service: 09/17/19 Principal diagnosis: Neurogenic Dysphagia Interval history: No acute issues. Will continue to monitor. Pending discharge today after HD. Objective - Vital Signs Vital signs: Vital Signs - 12hr 09/17/19 09/17/19 09/17/19 04:24 09:13 09:45 Temperature 98.2 F Respiratory 24 Rate Blood Pressure 142/51 139/52 O2 Sat by Pulse 99 Oximetry - General Appearance General appearance: chronically ill, frail EENT: ATNC Neck: no JVD Respiratory: Present: Clear to Ascultation Cardiology: regular, S1S2 Gastrointestinal: normal Integumentary: warm and dry Musculoskeletal: deferred Psychiatric: cooperative - Lab 09/14/19 08:08 09/15/19 07:46 Most recent lab results Calcium 7.8 mg/dL (8.4-10.2) L 09/15/19 07:46 Magnesium 2.00 mg/dL (1.7-2.3) 08/25/19 07:01 Urine Creatinine 102.1 mg/dL (0.1-20.0) H 08/21/19 20:00 Urine Sodium 44 mmol/L 08/21/19 10:06 Urine Total Protein 176 mg/dL (5-11.8) H 08/21/19 20:00 - Allied health notes Allied health notes reviewed: nursing Medications & Allergies - Medications Allergies/Adverse Reactions: Allergies No Known Allergies Allergy (Verified 11/29/13 10:39) Home Medications: Home Medications Medication Instructions Recorded Confirmed Last Taken Type ALPRAZolam [Xanax TAB] 0.5 mg PO BID 03/21/13 08/20/19 01/29/14 History Amlodipine Bes/Olmesartan Med 2.5 mg PO QDAY 03/21/13 08/20/19 1 Day Ago History [Shekhar 10-20 mg] ~08/19/19 Glimepiride [Amaryl] 2 mg PO QAM 03/21/13 08/20/19 1 Day Ago History ~08/19/19 2 mg Atorvastatin [Lipitor] 40 mg PO QHS 11/13/13 08/20/19 01/29/14 History Aspirin EC [Ecotrin] 325 mg PO QDAY #30 tablet 02/08/14 08/20/19 Unknown Rx Clopidogrel [Plavix] 75 mg PO QDAY #30 tablet 02/08/14 08/20/19 Unknown Rx Pantoprazole [Protonix TAB] 40 mg PO QDAY #30 tablet 02/08/14 08/20/19 1 Day Ago Rx ~08/19/19 40 mg carvediloL [Coreg] 3.125 mg PO BID #60 tablet 02/08/14 08/20/19 Unknown Rx levETIRAcetam [Keppra TAB] 1,500 mg PO BID 08/20/19 08/20/19 Unknown History Citalopram [Celexa] 40 mg PO QDAY 08/22/19 08/22/19 Unknown History ALPRAZolam [Xanax TAB] 0.5 mg PO BID tablet 09/15/19 Unknown Rx Oxycodone HCl/Acetaminophen 1 each PO Q6HR PRN #20 tablet 09/15/19 Unknown Rx [Percocet 7.5/325 mg] Active Medications: Generic Name Dose Route Start Last Admin Trade Name Freq PRN Reason Stop Dose Admin Acetaminophen 650 mg 09/09/19 20:46 09/11/19 23:06 Tylenol PO 650 mg Q6H PRN Administration Pain, Mild (1-3) Alprazolam 0.5 mg 08/20/19 10:00 09/17/19 09:43 Xanax PO 0.5 mg BID SHARON Administration Lipase/Protease/Amylase 1 each 09/13/19 09:[address] 10,500 Unit FEEDTUBE PRN PRN For Clogged Feeding Tube Aspirin 325 mg 08/20/19 10:00 09/17/19 09:43 Ecotrin PO 325 mg QDAY SHARON Administration Carvedilol 3.125 mg 08/20/19 22:00 09/17/19 09:45 Coreg PO 3.125 mg BID SHARON Administration Epoetin Rahul 10,000 unit 08/25/19 09:32 09/11/19 11:55 Procrit IV 10,000 unit DESIRAE PRN Administration hemodialysis Famotidine 20 mg 09/01/19 10:00 09/17/19 09:43 Pepcid PO 20 mg DAILY SHARON Administration Heparin Sodium (Porcine) 5,000 unit 08/25/19 09:32 09/06/19 13:31 Heparin IV 5,000 unit DESIRAE PRN Administration hemodialysis Heparin Sodium (Porcine) 5,000 unit 09/08/19 22:00 09/17/19 09:43 Heparin SUB-Q 5,000 unit Q12HR SHARON Administration Hydralazine HCl 10 mg 08/20/19 09:00 08/26/19 20:15 Apresoline IV 10 mg Q4HR PRN Administration Hypertension Sodium Chloride 1,000 mls @ 50 mls/hr 09/12/19 09:00 09/12/19 10:23 Nacl 0.9% 1000 Ml IV 50 mls/hr DIRECT SHARON Administration Piperacillin Sod/Tazobactam Sod 2.25 gm in 50 mls @ 100 mls/hr 09/13/19 13:00 09/17/19 06:09 Zosyn/Ns 2.25 Gm/50ml IV 09/25/19 23:59 100 mls/hr Q8H SHARON Administration Protocol Sodium Chloride 100 mls @ 999 mls/hr 09/17/19 10:30 Nacl 0.9% IV DESIRAE PRN Hypotension Insulin Human Lispro 0 unit 09/06/19 12:00 09/17/19 06:13 Humalog SUB-Q 2 unit Q6HR SHARON Administration Protocol Insulin Human NPH 15 unit 08/31/19 17:00 09/17/19 09:43 Humulin N SUB-Q 15 unit BIDDIAB SHARON Administration Levetiracetam 1,500 mg 08/23/19 22:00 09/17/19 09:42 Keppra FEEDTUBE 1,500 mg BID SHARON Administration Nitroglycerin 0.4 mg 08/20/19 19:00 Nitrostat SL .Q5MIN PRN Chest Pain Oxycodone/Acetaminophen 1 tab 08/21/19 20:37 09/15/19 06:57 Percocet 5/325 PO 1 tab Q6H PRN Administration Pain, Moderate (4-6) Simple Syrup 15 ml 09/13/19 09:33 Simple Syrup FEEDTUBE PRN PRN Hypoglycemia Simple Syrup 30 ml 09/13/19 09:33 Simple Syrup FEEDTUBE PRN PRN Hypoglycemia Sodium Bicarbonate 325 mg 09/13/19 09:33 Sodium Bicarbonate FEEDTUBE PRN PRN For Clogged Feeding Tube
--- NOTE | 2019-09-17 13:15 | Progress Note ---
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 She was found to have elevated troponin T of 0.224, CPK level was over 20,000 consistent with severe rhabdomyolysis, acute renal failure with a creatinine of 5.9, there was hypokalemia with a potassium of 2.4, and moderate elevation in the liver transaminases. She was diagnosis with type 2 PA, ARF with uremia and metabolic acidosis, Severe hypokalemia, transaminititis, rhabdomyolysis. She was initiated on hemodialysis, I believe on 09/04/2019 after VasCath placed. She had PEG tube placed on 09/12/2019. During hospital coarse, she had isolated fever of 100.7F on 08/26/2019 and then persistent fevers returned on 09/05/2019. ID was consulted on 09/09/2019. She was found to E.faecalis bacteremia: / bottles. Suspect hepatobiliary source given RUQ US findings of CBD dilatation. GI following, unable to due MRI abd due to AICD; TTE showed no obvious vegetations, repeat blood cultures are negative. During the course of hospitalization patient was started on hemodialysis with noted improvement in rhabdomyolysis and also mental status. She continues to require hemodialysis. Statin was discontinued as this was felt to be the inciting factor; Initially there was a discussion for speech evaluation which was done with recommendation for pured diet unfortunately the patient did not tolerating this and PEG tube placed. Family also made the patient a DNR at this time. -Acute metabolic encephalopathy, poa due to ARF, rhabdo etc... -Sepsis secondary to E Fecalis Bactermia- Unclear sources. HIDA and Echo negative. Not Present on admission: treated with IV zosyn, ID following -Acute kidney injury; likely ATN - Continue on HD -Rhabdomyolysis; likely from statin -Transaminitis; unknown etiology - trending down with normal ele -Dysphagia due to late effect of CVA and current illness, poa: s/p PEG tube -Metabolic acidosis: due acute kidney injury, mgt per neurology - placed on hCO3 drip, now also on HD -Severe hypokalemia; replaced; Closely monitor electrolytes and replete as needed -Type 2 PA; Cardiology evaluated and chose medical management -Coronary artery disease status post PCI -ICD in place; monitor, cardiology evaluation if needed -Dyslipidemia; hold statin in view of rhabdo/transaminitis -Type 2 diabetes mellitus; Accu-Chek sliding scale coverage, ADA diet, insulin as needed -History of seizure disorder; seizure precautions, Continue Keppra -Acute on chronic Anemia of chronic illness-was transfused 1 unit packed red blood cell -Severe protein calorie malnutrition, poa: Dietitian consulted -Hypertension; moderate control: Continue current antihypertensives and PRN medications -DVT prophylaxis; heparin renal dose -DNR -Disposition; continue inpatient care, patient is appropriate for hospice, await Insurance authorization to [facility] 09/16/2019: Day 27, my first day with patient. Awaiting SNF place 09/17/2019: HD today then SNF Awaiting insurance authorization to go to [facility], d/w case management. History Interval history: Patient was seen and examined. Follow-up on current diagnosis of ARF. Overnight uneventful as no events directly reported to me. Patient denies any chest pain, shortness breath, nausea/vomiting or severe headaches. Imaging, nursing note, chart, labs and old chart reviewed. Discussed with patient. Hospitalist Physical - Physical exam Narrative exam: Gen: WDWN, NAD, Awake, Alert, Orientated x 1.5 to self and knows she is in hospital but doesn't know which one HEENT: NCAT, EOMI, PERRL, OP Clear Neck: supple, no adenopathy, no thyromegaly, no JVD CVS/Heart: RRR, normal S1S2, pulses present bilaterally Chest/Lungs: diminished bs bilateral, Symmetrical chest expansion, good air entry bilaterally GI/Abdomen: soft,peg intact, good bowel sounds, no guarding or rebound /Bladder: no suprapubic tenderness, no CVA or paraspinal tenderness Extermity/Skin: no c/c/e, no obvious rash MSK: FROM x 3 Neuro: CN 2-12 grossly intact, no new focal deficits Psych: calm - Constitutional Vitals: Temp Pulse Resp BP Pulse Ox 97.9 F 68 18 117/61 97 09/17/19 10:45 09/17/19 12:15 09/17/19 10:45 09/17/19 12:15 09/17/19 10:45 General appearance: Present: no acute distress, well-nourished. Absent: mild distress, other Results - Labs CBC & Chem 7: 09/14/19 08:08 09/15/19 07:46 Labs: Laboratory Last Values WBC 15.3 K/mm3 (4.5-11.0) H 09/14/19 08:08 RBC 2.78 M/mm3 (3.65-5.03) L 09/14/19 08:08 Hgb 8.5 gm/dl (10.1-14.3) L 09/14/19 08:08 Hct 26.0 % (30.3-42.9) L 09/14/19 08:08 MCV 94 fl (79-97) 09/14/19 08:08 MCH 31 pg (28-32) 09/14/19 08:08 MCHC 33 % (30-34) 09/14/19 08:08 RDW 19.1 % (13.2-15.2) H 09/14/19 08:08 Plt Count 277 K/mm3 (140-440) 09/14/19 08:08 Lymph % (Auto) 6.4 % (13.4-35.0) L 09/12/19 04:43 [place] % (Auto) 7.0 % (0.0-7.3) 09/12/19 04:43 Eos % (Auto) 0.6 % (0.0-4.3) 09/12/19 04:43 Baso % (Auto) 0.2 % (0.0-1.8) 09/12/19 04:43 Lymph # 1.0 K/mm3 (1.2-5.4) L 09/12/19 04:43 [place] # 1.1 K/mm3 (0.0-0.8) H 09/12/19 04:43 Eos # 0.1 K/mm3 (0.0-0.4) 09/12/19 04:43 Baso # 0.0 K/mm3 (0.0-0.1) 09/12/19 04:43 Seg Neutrophils % 85.8 % (40.0-70.0) H 09/12/19 04:43 Seg Neutrophils # 13.4 K/mm3 (1.8-7.7) H 09/12/19 04:43 PT 16.2 Sec. (12.2-14.9) H 09/12/19 04:43 INR 1.28 (0.87-1.13) H 09/12/19 04:43 APTT 59.6 Sec. (24.2-36.6) H 08/20/19 23:09 Heparin Anti-Xa Level 0.18 U.I./ml (0.3-0.7) L 08/22/19 15:01 Sodium 140 mmol/L (137-145) 09/15/19 07:46 Potassium 3.8 mmol/L (3.6-5.0) D 09/15/19 07:46 Chloride 99.3 mmol/L (98-107) 09/15/19 07:46 Carbon Dioxide 23 mmol/L (22-30) 09/15/19 07:46 Anion Gap 22 mmol/L 09/15/19 07:46 BUN 53 mg/dL (7-17) H 09/15/19 07:46 Creatinine 2.9 mg/dL (0.7-1.2) H 09/15/19 07:46 Estimated GFR 19 ml/min 09/15/19 07:46 BUN/Creatinine Ratio 18 % 09/15/19 07:46 Glucose 188 mg/dL (65-100) H 09/15/19 07:46 POC Glucose 172 (70-105) H 09/17/19 05:31 Lactic Acid 1.60 mmol/L (0.7-2.0) 09/09/19 14:26 Calcium 7.8 mg/dL (8.4-10.2) L 09/15/19 07:46 Magnesium 2.00 mg/dL (1.7-2.3) 08/25/19 07:01 Total Bilirubin 0.20 mg/dL (0.1-1.2) 09/09/19 10:30 Direct Bilirubin < 0.2 mg/dL (0-0.2) 08/31/19 09:47 Indirect Bilirubin 0.1 mg/dL 08/31/19 09:47 AST 21 units/L (5-40) 09/09/19 10:30 ALT 64 units/L (7-56) H 09/09/19 10:30 Alkaline Phosphatase 71 units/L (35-129) 09/09/19 10:30 Ammonia 48.0 umol/L (25-60) 09/05/19 09:07 Total Creatine Kinase 599 units/L (30-135) H 09/06/19 Unknown CK-MB (CK-2) 73.0 ng/mL (0.0-4.0) H 08/21/19 05:35 CK-MB (CK-2) Rel Index 0.3 (0-4) 08/21/19 05:35 Troponin T 0.196 ng/mL (0.00-0.029) H* 08/21/19 05:35 Total Protein 5.3 g/dL (6.3-8.2) L 09/09/19 10:30 Albumin 1.9 g/dL (3.9-5) L 09/09/19 10:30 Albumin/Globulin Ratio 0.6 % 09/09/19 10:30 Triglycerides 125 mg/dL (2-149) 08/20/19 06:11 Cholesterol 89 mg/dL (50-199) 08/20/19 06:11 LDL Cholesterol Direct 45 mg/dL (50-130) L 08/20/19 06:11 HDL Cholesterol 25 mg/dL (40-59) L 08/20/19 06:11 Cholesterol/HDL Ratio 3.56 % 08/20/19 06:11 Urine Color Red (Yellow) 08/20/19 07:38 Urine Turbidity Cloudy (Clear) 08/20/19 07:38 Urine pH 5.0 (5.0-7.0) 08/20/19 07:38 Ur Specific [place] 1.013 (1.003-1.030) 08/20/19 07:38 Urine Protein 100 mg/dl mg/dL (Negative) 08/20/19 07:38 Urine Glucose (UA) Neg mg/dL (Negative) 08/20/19 07:38 Urine Ketones Neg mg/dL (Negative) 08/20/19 07:38 Urine Blood Lg (Negative) 08/20/19 07:38 Urine Nitrite Neg (Negative) 08/20/19 07:38 Urine Bilirubin Neg (Negative) 08/20/19 07:38 Urine Urobilinogen < 2.0 mg/dL (<2.0) 08/20/19 07:38 Ur Leukocyte Esterase Sm (Negative) 08/20/19 07:38 Urine WBC (Auto) 25.0 /HPF (0.0-6.0) H 08/20/19 07:38 Urine RBC (Auto) 4.0 /HPF (0.0-6.0) 08/20/19 07:38 U Epithel Cells (Auto) 3.0 /HPF (0-13.0) 08/20/19 07:38 Urine Bacteria (Auto) 1+ /HPF (Negative) 08/20/19 07:38 Amorphous Crystals Few 08/20/19 07:38 Urine Creatinine 102.1 mg/dL (0.1-20.0) H 08/21/19 20:00 Protein/Creatinin Ratio 1.72 08/21/19 20:00 Urine Sodium 44 mmol/L 08/21/19 10:06 Urine Potassium 23.15 mmol/L 08/21/19 10:06 Urine Chloride 22.8 mmolL (110-250) L 08/21/19 10:06 Urine Total Protein 176 mg/dL (5-11.8) H 08/21/19 20:00 Random Vancomycin 11.5 ug/mL (0-40.0) 09/12/19 07:00 Urine Opiates Screen Presumptive positive 08/21/19 20:00 Urine Methadone Screen Presumptive negative 08/21/19 20:00 Acetaminophen < 5.0 ug/mL (10.0-30.0) L 08/22/19 04:34 Ur Barbiturates Screen Presumptive negative 08/21/19 20:00 Ur Phencyclidine Scrn Presumptive negative 08/21/19 20:00 Ur Amphetamines Screen Presumptive negative 08/21/19 20:00 U Benzodiazepines Scrn Presumptive positive 08/21/19 20:00 Urine Cocaine Screen Presumptive negative 08/21/19 20:00 U Marijuana (THC) Screen Presumptive negative 08/21/19 20:00 Drugs of Abuse Note Disclamer 08/21/19 20:00 Proteinase 3 (PR3) Ab <1.0 AI (<1.0) 08/21/19 08:51 Myeloperoxidase Ab <1.0 AI (<1.0) 08/21/19 08:51 Complement C3 136 mg/dL () 08/21/19 08:51 Complement C4 46 mg/dL () 08/21/19 08:51 Hepatitis A IgM Ab Non-reactive (NonReactive) 08/20/19 23:09 Hep Bs Antigen Non-reactive (Negative) 08/26/19 05:49 Hep B Core IgM Ab Non-reactive (NonReactive) 08/20/19 23:09 Hepatitis C Antibody Non-reactive (NonReactive) 08/26/19 05:49 Blood Type A POSITIVE 09/07/19 08:54 Antibody Screen Negative 09/07/19 08:54 Crossmatch See Detail 09/07/19 08:54 Active Medications - Current Medications Current Medications: Generic Name Dose Route Start Last Admin Trade Name Freq PRN Reason Stop Dose Admin Acetaminophen 650 mg 09/09/19 20:46 09/11/19 23:06 Tylenol PO 650 mg Q6H PRN Administration Pain, Mild (1-3) Alprazolam 0.5 mg 08/20/19 10:00 09/17/19 09:43 Xanax PO 0.5 mg BID SHARON Administration Lipase/Protease/Amylase 1 each 09/13/19 09:[address] 10,500 Unit FEEDTUBE PRN PRN For Clogged Feeding Tube Aspirin 325 mg 08/20/19 10:00 09/17/19 09:43 Ecotrin PO 325 mg QDAY SHARON Administration Carvedilol 3.125 mg 08/20/19 22:00 09/17/19 09:45 Coreg PO 3.125 mg BID SHARON Administration Epoetin Rahul 10,000 unit 08/25/19 09:32 09/11/19 11:55 Procrit IV 10,000 unit DESIRAE PRN Administration hemodialysis Famotidine 20 mg 09/01/19 10:00 09/17/19 09:43 Pepcid PO 20 mg DAILY SHARON Administration Heparin Sodium (Porcine) 5,000 unit 08/25/19 09:32 09/06/19 13:31 Heparin IV 5,000 unit DESIRAE PRN Administration hemodialysis Heparin Sodium (Porcine) 5,000 unit 09/08/19 22:00 09/17/19 09:43 Heparin SUB-Q 5,000 unit Q12HR SHARON Administration Hydralazine HCl 10 mg 08/20/19 09:00 08/26/19 20:15 Apresoline IV 10 mg Q4HR PRN Administration Hypertension Sodium Chloride 1,000 mls @ 50 mls/hr 09/12/19 09:00 09/12/19 10:23 Nacl 0.9% 1000 Ml IV 50 mls/hr DIRECT SHARON Administration Piperacillin Sod/Tazobactam Sod 2.25 gm in 50 mls @ 100 mls/hr 09/13/19 13:00 09/17/19 06:09 Zosyn/Ns 2.25 Gm/50ml IV 09/25/19 23:59 100 mls/hr Q8H SHARON Administration Protocol Sodium Chloride 100 mls @ 999 mls/hr 09/17/19 10:30 Nacl 0.9% IV DESIRAE PRN Hypotension Insulin Human Lispro 0 unit 09/06/19 12:00 09/17/19 06:13 Humalog SUB-Q 2 unit Q6HR SHARON Administration Protocol Insulin Human NPH 15 unit 08/31/19 17:00 09/17/19 09:43 Humulin N SUB-Q 15 unit BIDDIAB SHARON Administration Levetiracetam 1,500 mg 08/23/19 22:00 09/17/19 09:42 Keppra FEEDTUBE 1,500 mg BID SHARON Administration Nitroglycerin 0.4 mg 08/20/19 19:00 Nitrostat SL .Q5MIN PRN Chest Pain Oxycodone/Acetaminophen 1 tab 08/21/19 20:37 09/15/19 06:57 Percocet 5/325 PO 1 tab Q6H PRN Administration Pain, Moderate (4-6) Simple Syrup 15 ml 09/13/19 09:33 Simple Syrup FEEDTUBE PRN PRN Hypoglycemia Simple Syrup 30 ml 09/13/19 09:33 Simple Syrup FEEDTUBE PRN PRN Hypoglycemia Sodium Bicarbonate 325 mg 09/13/19 09:33 Sodium Bicarbonate FEEDTUBE PRN PRN For Clogged Feeding Tube Nutrition/Malnutrition Assess - Dietary Evaluation Nutrition/Malnutrition Findings: Nutrition Notes Start: 08/22/19 10:11 Freq: Status: Active Protocol: Document 09/17/19 10:50 LM (Rec: 09/17/19 11:00 LM [id number]) Nutrition Notes Initial or Follow up Reassessment Current Diagnosis Acute Kidney Injury,CKD(stage I-IV),Coronary Artery Disease, Diabetes Other Pertinent Diagnosis HD T, Th, Sat, GERD, hypokalemia, anemia, Current Diet Glucerna 1.2 at 50 ml/hr Labs/Tests POC glu 172 Pertinent Medications Humalog Height 5 ft 5 in Weight 82.5 kg [place] Body Weight (kg) 56.81 BMI 30.2 Subjective/Other Information Pt's TF restarted and running at 50 ml/hr via PEG. Pt tolerating TF. Percent of energy/protein needs met: 94%/81% Burn Absent Trauma Absent GI Symptoms None Current % PO Negligible Minimum of two criteria No Reduced Experimental Mechanic Strength Measurably Reduced (severe) #1 Nutrition Diagnosis Inadequate oral intake Diagnosis Progress(for reassessment Continues documentation) Is patient on ventilator? No Is Patient Ambulatory and/or Out of Bed No REE-([facility]-confined to bed) 1526.316 Calculation Used for Recommendations [facility] Additional Notes Pro: 89 g (>1.2 g/kg) Fluid 1 ml/kcal or per MD Nutrition Intervention Change Diet Order: TF Nutrition Support: Glucerna 1.2 at 50 ml/hr Flush 100 ml q4h Kcal 1,440 Protein (gm) 72 Fluid (mL) 966 Goal #1 Meet at least 80% of energy and protein needs via TF Anticipated Discharge Needs: Bolus Glucerna 1.2 5 cans/day 2 cans breakfast (474ml) 1 can lunch (237ml) 2 cans dinner (474ml) Flush 150 ml before and after each bolus Follow-Up By: 09/24/19 Additional Comments F/U: TF tolerance, renal labs
--- NOTE | 2019-09-17 13:32 | Discharge Summary ---
Providers - Providers Date of Admission: 08/20/19 07:54 Date of discharge: 09/17/19 Attending physician: CHASIDY MENDOZA 08/20/19 07:43 Consult to Physician [CONS] Urgent Comment: DR JANETT GOMEZ W/DR CAREY @[id number] Consulting Provider: JAC CAREY Physician Instructions: Reason For Exam: Acute renal failure 08/20/19 18:35 Consult to Physician [CONS] Routine Comment: Consulting Provider: ERNESTO NORTH Physician Instructions: Reason For Exam: Transaminitis 08/23/19 08:46 Speech Therapy Evaluation and Treat [CONS] Urgent Reason For Exam: Difficulty swallowing 08/23/19 12:38 Consult to Dietitian/Nutrition [CONS] Routine Physician Instructions: Assess nutrtn needs, initiate, modify, manage TF Reason For Exam: Reason for Consult: Write/Manage Tube Feeding Reason for Consult: Write/Manage Tube Feeding 08/25/19 09:31 Consult to Physician [CONS] Routine Comment: Consulting Provider: DELANEY MARTIN Physician Instructions: Reason For Exam: JULIANO needs permacath for hemodialysis 08/28/19 11:29 Speech Therapy Evaluation and Treat [CONS] Routine Reason For Exam: aspiration risk 09/01/19 10:30 Physical Therapy Evaluation and Treat [CONS] Routine Comment: Reason For Exam: placement Speech Therapy Evaluation and Treat [CONS] Routine Reason For Exam: aspiration 09/02/19 14:36 Consult to Physician [CONS] Routine Comment: Consulting Provider: DELANEY ESQUEDA Physician Instructions: Reason For Exam: permcath placement 09/06/19 16:06 Consult to Physician [CONS] Routine Comment: Consulting Provider: DARION FULLER Physician Instructions: Reason For Exam: PEG placement 09/09/19 07:55 Consult to Physician [CONS] Routine Comment: Consulting Provider: MAGDA VEGAS Physician Instructions: Reason For Exam: sepsis 09/10/19 10:03 Consult to Wound/ET Nurse [CONS] Routine Reason For Exam: wound eval 09/12/19 14:52 Consult to Dietitian/Nutrition [CONS] Routine Physician Instructions: Reason For Exam: Reason for Consult: Write/Manage Tube Feeding 09/15/19 14:18 Consult to Case Management [CONS] Routine Services Needed at Discharge: Other Notified:: cm Comment:: Abx at dialysis center Additional Physician Instructions: Infuse Vancomycin 500 mg IV after every dialysis session with end date of 09/25/2019. Weekly labs not needed given renal failure. Magda Vegas MD FACP 09/16/19 09:20 Occupational Therapy Evaluate and Treat [CONS] Stat Comment: Reason For Exam: EVal and Treat 09/16/19 09:21 Physical Therapy Evaluation and Treat [CONS] Stat Comment: Placement Reason For Exam: Eval and Treat 09/17/19 07:09 Consult to Wound/ET Nurse [CONS] Urgent Reason For Exam: wound eval 09/17/19 13:20 Consult to Physician [CONS] Routine Reason For Exam: sacral ulcer ?needs debridement Consulting Provider: SACHI EVANS Physician Instructions: Comment: Primary care physician: FINISHING TRIMMER Hospitalization Condition: Stable Hospital course: Patient is a 84-year-old -[place] woman with a history of hypertension, type 2 diabetes mellitus, CVA with residual deficits, 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 She was found to have elevated troponin T of 0.224, CPK level was over 20,000 consistent with severe rhabdomyolysis, acute renal failure with a creatinine of 5.9, there was hypokalemia with a potassium of 2.4, and moderate elevation in the liver transaminases. She was diagnosis with type 2 [place], ARF with uremia and metabolic acidosis, Severe hypokalemia, transaminititis, rhabdomyolysis. She was initiated on hemodialysis, I believe on 09/04/2019 after VasCath placed. She had PEG tube placed on 09/12/2019. During hospital coarse, she had isolated fever of 100.7F on 08/26/2019 and then persistent fevers returned on 09/05/2019. ID was consulted on 09/09/2019. She was found to E.faecalis bacteremia: 1/4 bottles. Suspect hepatobiliary source given RUQ US findings of CBD dilatation. GI following, unable to due MRI abd due to AICD; TTE showed no obvious vegetations, repeat blood cultures are negative. During the course of hospitalization patient was started on hemodialysis with noted improvement in rhabdomyolysis and also mental status. She continues to require hemodialysis. Statin was discontinued as this was felt to be the inciting factor; Initially there was a discussion for speech evaluation which was done with recommendation for pured diet unfortunately the patient did not tolerating this and PEG tube placed. Family also made the patient a DNR at this time. Discharge Diagnoses: -Acute metabolic encephalopathy, poa due to ARF, rhabdo etc... -Sepsis secondary to E Fecalis Bactermia- Unclear sources. HIDA and Echo negative. Not Present on admission: treated with IV zosyn, ID following, IV Vancomycin 500mg after HD on MWF, last day is 09/25/2019 -Acute kidney injury; likely ATN from rhabdo- Continue on HD MWF per Nephrology -Rhabdomyolysis; likely from statin -Transaminitis; unknown etiology - trending down with normal ele -Dysphagia due to late effect of CVA and current illness, poa: s/p PEG tube -Metabolic acidosis: due acute kidney injury, mgt per neurology - placed on hCO3 drip, now also on HD -Severe hypokalemia; replaced; Closely monitor electrolytes and replete as needed -Type 2 [place]; Cardiology evaluated and chose medical management -Coronary artery disease status post PCI -ICD in place; monitor, cardiology evaluation if needed -Dyslipidemia; hold statin in view of rhabdo/transaminitis -Type 2 diabetes mellitus; Accu-Chek sliding scale coverage, ADA diet, insulin as needed -History of seizure disorder; seizure precautions, Continue Keppra -Acute on chronic Anemia of chronic illness-was transfused 1 unit packed red blood cell -Severe protein calorie malnutrition, FTT, poa: Dietitian consulted, PEG tube feeding -Hypertension; moderate control: Continue current antihypertensives and PRN medications -DVT prophylaxis; heparin renal dose -Significant pressure ulcers: Unstageable necrotic sacral ulcer pressure ulcer, Left heel with DTI, Left dorum foot open blister, Left Medial foot DTI, Right heel DTI, Right ankle DTI, Right lateral foot DTI, Right medial foot DTI. I am not sure if POA as I only started following on day 27: wound Care Nurse input noted and will investigate -DNR -Disposition; Palliative care at [facility] 09/16/2019: Day 27, my first day with patient. Awaiting SNF place. My impression is that patient has a poor prognosis, and it Hospice appropriate from very poor functional capacity, FTT, end stage co-morbidities including CAD/CMP/ICD/ARF now on HD, FTT, No Hospice on HD, hopefully renal function will improve and HD stop and going into Hospice. 09/17/2019: HD today then SNF Awaiting insurance authorization to go to [facility], d/w case management. HD setup: [facility]. Confirmed acceptance with Mary at the clinic. Pt schedule is -W- 11:45 a.m. Pt first day of dialysis will start on 09/19/2019. Disposition: [id number]/TX-03 SNF W [facility] CERT Time spent for discharge: 36 minutes Core Measure Documentation - Palliative Care Palliative Care/ Comfort Measures: Palliative Care/Comfort Measures - Core Measures Any of the following diagnoses?: none - VTE Discharge Requirements Deep Vein Thrombosis/Pulmonary Embolism Present on Admission: No Has pt received <5 days of overlap therapy or INR<2.0: No Anticoagulant overlap therapy prescribed at discharge: No Contraindication No Overlap Therapy order at DC: Not Indicated Exam - Physical Exam Narrative exam: Gen: WDWN, chronic disable appearing, NAD, Awake, Alert, Orientated x 1.5 to self and knows she is in hospital but doesn't know which one HEENT: NCAT, EOMI, PERRL, OP Clear Neck: supple, no adenopathy, no thyromegaly, no JVD CVS/Heart: RRR, normal S1S2, pulses present bilaterally Chest/Lungs: diminished bs bilateral, Symmetrical chest expansion, good air entry bilaterally GI/Abdomen: soft,peg intact, good bowel sounds, no guarding or rebound /Bladder: no suprapubic tenderness, no CVA or paraspinal tenderness Extermity/Skin: Unstageable necrotic sacral ulcer pressure ulcer, Left heel with DTI, Left dorum foot open blister, Left Medial foot DTI, Right heel DTI, Right ankle DTI, Right lateral foot DTI, Right medial foot DTI MSK: FROM x 3 Neuro: CN 2-12 grossly intact, no new focal deficits Psych: calm - Constitutional Vitals: Temp Pulse Resp BP Pulse Ox 97.9 F 68 18 117/61 97 09/17/19 10:45 09/17/19 12:15 09/17/19 10:45 09/17/19 12:15 09/17/19 10:45 Plan Activity: fall precautions, other (pressure relieving mattress, frequent q2 hours turn off buttock) Diet: per dietitian instruction (Glucerna PEG tube feeding 1.2 at 50 ml/hr (goal rate) ) Wound: per wound nurse instructions Special Instructions: other (wound care) Additional Instructions: ABX with Hemodialysis: IV Vancomycin 500mg after HD on MWF, last day is 09/25/2019 Follow up with: MAGDA VEGAS MD [Staff Physician] - 7 Days EPHRAIM LUGO MD [Staff Physician] - 14 Days JUSTINO HOYOS MD [Staff Physician] - 7 Days CYNTHIA MARTINEZ MD [Staff Physician] - 14 Days Prescriptions: Oxycodone HCl/Acetaminophen [Percocet 7.5/325 mg] 1 each PO Q6HR PRN #20 tablet PRN Reason: Pain
[2019-09-17] MEDS: EPOETIN ALFA 10,000 UNIT/1 ML INJ IV PRN (13:33)
--- NOTE | 2019-09-17 14:22 | Progress Note ---
Assessment and Plan Cultures: 08/20/2019 blood culture: No growth 08/20/2019 urine culture: No growth 09/09/2019 blood culture: E.faecalis 09/11/2019 blood culture: no growth A/P: 84-year-old female with hypertension, diabetes mellitus, coronary artery disease, indwelling AICD was admitted to the hospital on 08/20/2019 with generalized weakness. Upon evaluation, she was found to have no leukocytosis or fever. Labs showed acute renal failure along with transaminase elevation along with CK of 20K. On 08/25/2019, patient underwent right IJ PermCath insertion and was started on dialysis by nephrology, now with: #Persistent high fevers: Not present on admission. Patient x-ray does not show any obvious pneumonia. CT with b/l pleural effusions, no intra-abdominal process. Blood cultures: 07/12 E.faecalis. #E.faecalis bacteremia: / bottles. HIDA negative. TTE showed no obvious vegetations, repeat blood cultures are negative promptly. Continue antibiotics. #Acute encephalopathy: Multifactorial. #Acute renal failure: Now requiring dialysis. Renally dose antibiotics. #Elevated LFTs: Likely related to rhabdomyolysis: Trending down. Recs: Continue post HD Vancomycin 500 mg IV after every dialysis session with end date of 09/25/2019 Magda Ybarra MD, FACP [facility], [place], [facility] ([facility]) C: [phone] O: [phone] F: [phone] Subjective Date of service: 09/17/19 Principal diagnosis: Neurogenic Dysphagia Interval history: Just getting done with dialysis. No fever. No distress. Answering basic questions today. Objective - Exam Narrative Exam: Physical Exam: Constitutional: awake, no distress Head, Ears, Nose: Normocephalic, atraumatic. External ears, nose normal Eyes: Conjunctivae/corneas clear. No icterus. No ptosis. Neck: Supple, no meningeal signs Oral: unable to examine Cardiovascular: S1, S2 normal. No AICD tenderness Respiratory: clear, no crackles or wheeze GI: Soft, bowel sounds normal. No peritoneal signs. PEG + Musculoskeletal: No pedal edema, no cyanosis. HD cath + Skin: No rash or abscess Hem/Lymphatic: No palpable cervical or supraclavicular nodes. No lymphangitis Psych: calm. no agitation Neurological: awake, answering basic questions, no distress - Constitutional Vitals: Vital Signs Temp Pulse Resp BP Pulse Ox 98.5 F 69 18 123/56 97 09/17/19 14:13 09/17/19 14:13 09/17/19 14:13 09/17/19 14:13 09/17/19 10:45 Temperature -Last 24 Hours Temperature 98.5 F Temperature 97.9 F Temperature 98.2 F Temperature 99.4 F Temperature 98.5 F - Labs CBC & Chem 7: 09/14/19 08:08 09/15/19 07:46 Labs: Abnormal lab results 09/16/19 09/17/19 09/17/19 Range/Units 17:24 00:03 05:31 POC Glucose 147 H 132 H 172 H (70-105)
[2019-09-17 17:21] VITALS: BP 138/57
== END 2019-09-17 17:30 | DRG 871 ==
LOC: ED 05:17 → 4A 07:54 → 3A 09-01 16:13
PROVIDERS: ADMIT Internal Medicine; ATTEND Internal Medicine
PROC: 5A1D70Z Performance of Urinary Filtration, Intermittent, Less than 6 Hours Per Day (ICD-10-PCS; 2019-08-25)
PROC: 0JH63XZ Insertion of Tunneled Vascular Access Device into Chest Subcutaneous Tissue and Fascia, Percutaneous Approach (ICD-10-PCS; 2019-08-25)
PROC: 02HV33Z Insertion of Infusion Device into Superior Vena Cava, Percutaneous Approach (ICD-10-PCS; 2019-08-25)
PROC: 5A1D70Z Performance of Urinary Filtration, Intermittent, Less than 6 Hours Per Day (ICD-10-PCS; 2019-08-26)
PROC: 5A1D70Z Performance of Urinary Filtration, Intermittent, Less than 6 Hours Per Day (ICD-10-PCS; 2019-08-27)
PROC: 5A1D70Z Performance of Urinary Filtration, Intermittent, Less than 6 Hours Per Day (ICD-10-PCS; 2019-08-30)
PROC: 5A1D70Z Performance of Urinary Filtration, Intermittent, Less than 6 Hours Per Day (ICD-10-PCS; 2019-09-02)
PROC: 5A1D70Z Performance of Urinary Filtration, Intermittent, Less than 6 Hours Per Day (ICD-10-PCS; 2019-09-04)
PROC: 5A1D70Z Performance of Urinary Filtration, Intermittent, Less than 6 Hours Per Day (ICD-10-PCS; 2019-09-06)
PROC: 30233N1 Transfusion of Nonautologous Red Blood Cells into Peripheral Vein, Percutaneous Approach (ICD-10-PCS; principal; 2019-09-07)
PROC: 5A1D70Z Performance of Urinary Filtration, Intermittent, Less than 6 Hours Per Day (ICD-10-PCS; 2019-09-09)
PROC: 5A1D70Z Performance of Urinary Filtration, Intermittent, Less than 6 Hours Per Day (ICD-10-PCS; 2019-09-11)
PROC: 0DH68UZ Insertion of Feeding Device into Stomach, Via Natural or Artificial Opening Endoscopic (ICD-10-PCS; 2019-09-12)
PROC: 5A1D70Z Performance of Urinary Filtration, Intermittent, Less than 6 Hours Per Day (ICD-10-PCS; 2019-09-13)
PROC: 5A1D70Z Performance of Urinary Filtration, Intermittent, Less than 6 Hours Per Day (ICD-10-PCS; 2019-09-16)
PROC: 5A1D70Z Performance of Urinary Filtration, Intermittent, Less than 6 Hours Per Day (ICD-10-PCS; 2019-09-17)
DX: A41.81 Sepsis due to Enterococcus (principal); G93.41 Metabolic encephalopathy; N17.0 Acute kidney failure with tubular necrosis; I21.A1 Myocardial infarction type 2; E43 Unspecified severe protein-calorie malnutrition; N18.6 End stage renal disease; E87.2 Acidosis; M62.82 Rhabdomyolysis; I13.2 Hypertensive heart and chronic kidney disease with heart failure and with stage 5 chronic kidney disease, or end stage renal disease; I69.353 Hemiplegia and hemiparesis following cerebral infarction affecting right non-dominant side; I25.10 Atherosclerotic heart disease of native coronary artery without angina pectoris; E87.6 Hypokalemia; R74.0 Nonspecific elevation of levels of transaminase and lactic acid dehydrogenase [LDH]; Z68.31 Body mass index [BMI] 31.0-31.9, adult; G89.29 Other chronic pain; M54.9 Dorsalgia, unspecified; E78.5 Hyperlipidemia, unspecified; I25.2 Old myocardial infarction; Z86.718 Personal history of other venous thrombosis and embolism; I50.9 Heart failure, unspecified; E11.22 Type 2 diabetes mellitus with diabetic chronic kidney disease; Z99.2 Dependence on renal dialysis; Z79.4 Long term (current) use of insulin; Z87.442 Personal history of urinary calculi; M19.90 Unspecified osteoarthritis, unspecified site; G43.909 Migraine, unspecified, not intractable, without status migrainosus; Z95.1 Presence of aortocoronary bypass graft; G40.909 Epilepsy, unspecified, not intractable, without status epilepticus; Z82.49 Family history of ischemic heart disease and other diseases of the circulatory system; Z95.810 Presence of automatic (implantable) cardiac defibrillator; I25.5 Ischemic cardiomyopathy; E86.0 Dehydration; R79.89 Other specified abnormal findings of blood chemistry; F03.90 Unspecified dementia, unspecified severity, without behavioral disturbance, psychotic disturbance, mood disturbance, and anxiety; D63.1 Anemia in chronic kidney disease; K21.9 Gastro-esophageal reflux disease without esophagitis; F41.9 Anxiety disorder, unspecified; R13.10 Dysphagia, unspecified; R62.7 Adult failure to thrive; Z66 Do not resuscitate; L89.150 Pressure ulcer of sacral region, unstageable; Z71.3 Dietary counseling and surveillance; L89.626 Pressure-induced deep tissue damage of left heel; L89.516 Pressure-induced deep tissue damage of right ankle; L89.616 Pressure-induced deep tissue damage of right heel
CPT/HCPCS: 36415; 36558; 70450; 71045; 74018; 74176; 76700; 76770; 77001; 78226; 80048; 80053; 80061; 80074; 80076; 80202; 80307; 80320; 81001; 82140; 82436; 82550; 82553; 82570; 82962; 83735; 84132; 84133; 84156; 84300; 84484; 85014; 85018; 85025; 85027; 85049; 85520; 85610; 85730; 86021; 86160; 86706; 86803; 86850; 86900; 86901; 86920; 87040; 87076; 87086; 87186; 93005; 93010; 93306; 93970; 94760; G0378; A9270-GY; A9537; C1750; G0480; J0360; J0690; J0692; J0885; J1200; J1644; J1720; J1815; J2250; J2270; J2405; J2543; J2704; J3010; J3370; J3411; J3430; J3480; J7030; J7040; J7050; J7070; P9016